=== PATIENT | male | born 1950 | race Caucasian/White ===

== ENCOUNTER 2020-08-20 07:20 | Outpatient (REF) | payer MEDICARE, SELFPAY ==
[2020-08-20 07:57] LABS: Hematocrit 38.2 % (42-52); Hemoglobin 12.4 g/dl (14.0-18.0); Mean Corpuscular HGB Conc 32.5 g/dl (31.0-36.0); Mean Corpuscular Hemoglobin 30.8 pg (27.0-33.0); Mean Corpuscular Volume 94.8 fL (80-98); Mean Platelet Volume 10.2 fL (9.4-12.4); Platelet Count 304 X10*3/uL (160-400); Red Blood Count 4.03 X10*6/uL (4.60-5.80); Red Cell Distribution Width 11.9 % (11.0-16.0); White Blood Count 8.6 X10*3/uL (4.8-10.8)
[2020-08-20 08:23] LABS: Alanine Aminotransferase 21 U/L (0-40); Albumin Level 4.1 g/dL (3.5-5.0); Alkaline Phosphatase 96 U/L (39-117); Anion Gap 13 (12-20); Aspartate Amino Transferase 25 U/L (5-37); Bilirubin Total 1.1 mg/dL (0.0-1.0); Blood Urea Nitrogen 37 mg/dL (9-16); Calcium 9.1 mg/dL (8.4-10.2); Carbon Dioxide 23 mmol/L (22-29); Chloride 108 mmol/L (96-108); Estimated Glomerular Filt Rate 33; Glucose Fasting 155 mg/dL (60-99); Potassium 5.6 mmol/L (3.3-5.1); Sodium 138 mmol/L (135-145); Total Protein 8.1 g/dL (6.5-8.0)
[2020-08-20 10:18] LABS: Creatinine Urine 107.99 mg/dL; Protein/Creatinine Ratio, Ur 0.66 (<0.2); Total Protein Urine Random 71 mg/dL (<12)
[2020-08-22 16:32] LABS: Calcium (PTHI) 9.4 mg/dL (8.6-10.3); PTHI 139 pg/mL (14-64)
== END 2020-08-20 07:21 | disposition home or self-care (01) ==
LOC: HO.LAB 07:20
PROVIDERS: PCP Internal Medicine; Visit Provider Internal Medicine Hypertension Specialist
DX: E11.22 Type 2 diabetes mellitus with diabetic chronic kidney disease (principal); N18.4 Chronic kidney disease, stage 4 (severe)
CPT/HCPCS: 36415; 80053; 83970; 84156; 85027

== ENCOUNTER 2020-09-06 07:35 | Outpatient (REF) | payer MEDICARE, SELFPAY | END 2020-09-06 07:36 | disposition home or self-care (01) | LOC: HO.HOSX 07:35 | PROVIDERS: Visit Provider Orthopaedic Surgery | DX: Z13.89 Encounter for screening for other disorder (principal) ==

== ENCOUNTER 2021-01-05 16:12 | Outpatient (REF) | payer MEDICARE, SELFPAY ==
--- NOTE | ~2021-01-05 | US_ITS ---
EXAMINATION: US RETROPERITONEAL LIMITED (RENAL ONLY) CLINICAL INFORMATION: Chronic kidney disease, stage 4. COMPARISON: CT abdomen and pelvis 04/06/2018. Renal ultrasound 04/11/2017. X-ray abdomen KUB 02/15/2011. Ultrasound abdomen 01/15/2011. TECHNIQUE: Real-time imaging of the kidneys. FINDINGS: There is a horseshoe kidney. RIGHT : 12.3 x 5.7 x 5.2 cm (SAG x AP x TRV). The kidney is normal in size, contour, and echogenicity. Renal cortical thickness is normal. There are 2 cysts in the lower pole measuring 3.1 x 2 x 3.1 cm and 1.8 x 1.5 x 1.4 cm. No renal calculi or hydronephrosis. LEFT : 12.4 x 5.9 x 5.0 cm (SAG x AP x TRV). The kidney is normal in size, contour, and echogenicity. Renal cortical thickness is normal. There are 4 cysts. The largest measures 4.4 x 4.1 x 4.3 cm in the upper pole. There are 2 cysts in the midpole measuring 2.7 x 2.2 x 2.6 cm and 2.2 x 2.1 x 1.9 cm. There is a 2.6 x 2.5 x 3 cm cyst in the lower pole. No renal calculi or hydronephrosis. US/US renal BI IMPRESSION: Horseshoe kidney. Multiple bilateral renal cysts, left greater than right. All cysts represent simple cysts. These do not appear appreciably changed from previous exam.
== END 2021-01-05 16:13 | disposition home or self-care (01) ==
LOC: HO.US 16:12
PROVIDERS: Visit Provider Internal Medicine Hypertension Specialist
DX: N18.4 Chronic kidney disease, stage 4 (severe) (principal)
CPT/HCPCS: 76775

== ENCOUNTER 2021-02-04 08:23 | Outpatient (REF) | payer MEDICARE, SELFPAY ==
[2021-02-04 09:49] LABS: Alanine Aminotransferase 20 U/L (0-40); Albumin Level 4.1 g/dL (3.5-5.0); Alkaline Phosphatase 85 U/L (39-117); Anion Gap 13 (12-20); Aspartate Amino Transferase 30 U/L (5-37); Bilirubin Total 1.3 mg/dL (0.0-1.0); Blood Urea Nitrogen 34 mg/dL (9-16); Calcium 9.3 mg/dL (8.4-10.2); Carbon Dioxide 23 mmol/L (22-29); Chloride 108 mmol/L (96-108); Estimated Glomerular Filt Rate 33; Glucose Random 132 mg/dL (60-115); Potassium 5.1 mmol/L (3.3-5.1); Sodium 139 mmol/L (135-145)
[2021-02-11 08:31] LABS: Calcium (PTHI) 9.1 mg/dL (8.6-10.3); PTHI 103 pg/mL (14-64)
== END 2021-02-04 08:24 | disposition home or self-care (01) ==
LOC: HO.LAB 08:23
PROVIDERS: Urology; PCP Internal Medicine; Visit Provider Internal Medicine Hypertension Specialist
DX: Z12.5 Encounter for screening for malignant neoplasm of prostate (principal); I12.9 Hypertensive chronic kidney disease with stage 1 through stage 4 chronic kidney disease, or unspecified chronic kidney disease; N18.9 Chronic kidney disease, unspecified; N40.1 Benign prostatic hyperplasia with lower urinary tract symptoms
CPT/HCPCS: 36415; 80053; 83970; 84153

== ENCOUNTER 2021-04-28 08:05 | Outpatient (REF) | payer MEDICARE, SELFPAY ==
--- NOTE | ~2021-04-28 | XR_ITS ---
EXAMINATION: XR SHOULDER, LEFT XR KNEE, BILATERAL CLINICAL INFORMATION: Left shoulder pain. Bilateral knee pain, osteoarthritis. COMPARISON: Left knee 06/28/2018 TECHNIQUE: 3 views of the left shoulder. 4 views of each knee. FINDINGS: Left Shoulder: Degenerative spurring along the greater tuberosity. Mild acromioclavicular osteoarthritis. Normal alignment with no fracture. Right Knee: Medial compartment narrowing with prominent marginal osteophytes. Marginal osteophytes in the lateral compartment. There is severe osteoarthritis of the patellofemoral compartment with superolateral ossification which may represent a bipartite patella. There is faint chondrocalcinosis. Small joint effusion. No acute osseous abnormality. Left Knee: Moderate-severe patellofemoral and medial compartment osteoarthritis. Mild lateral compartment osteoarthritis. Faint chondrocalcinosis. No significant joint effusion. No fracture. Diffuse vascular calcifications. XR/XR shoulder LT min 2V IMPRESSION: Left Shoulder: Mild osteoarthritis. No fracture. Right Knee: Severe patellofemoral compartment and [id number] medial/lateral compartment osteoarthritis with a joint effusion. No acute abnormality. Left Knee: Moderate severe patellofemoral and medial compartment osteoarthritis. No fracture.
--- NOTE | ~2021-04-28 | XR_ITS ---
EXAMINATION: XR SHOULDER, LEFT XR KNEE, BILATERAL CLINICAL INFORMATION: Left shoulder pain. Bilateral knee pain, osteoarthritis. COMPARISON: Left knee 06/28/2018 TECHNIQUE: 3 views of the left shoulder. 4 views of each knee. FINDINGS: Left Shoulder: Degenerative spurring along the greater tuberosity. Mild acromioclavicular osteoarthritis. Normal alignment with no fracture. Right Knee: Medial compartment narrowing with prominent marginal osteophytes. Marginal osteophytes in the lateral compartment. There is severe osteoarthritis of the patellofemoral compartment with superolateral ossification which may represent a bipartite patella. There is faint chondrocalcinosis. Small joint effusion. No acute osseous abnormality. Left Knee: Moderate-severe patellofemoral and medial compartment osteoarthritis. Mild lateral compartment osteoarthritis. Faint chondrocalcinosis. No significant joint effusion. No fracture. Diffuse vascular calcifications. XR/XR knee LT 4V IMPRESSION: Left Shoulder: Mild osteoarthritis. No fracture. Right Knee: Severe patellofemoral compartment and [id number] medial/lateral compartment osteoarthritis with a joint effusion. No acute abnormality. Left Knee: Moderate severe patellofemoral and medial compartment osteoarthritis. No fracture.
--- NOTE | ~2021-04-28 | XR_ITS ---
EXAMINATION: XR SHOULDER, LEFT XR KNEE, BILATERAL CLINICAL INFORMATION: Left shoulder pain. Bilateral knee pain, osteoarthritis. COMPARISON: Left knee 06/28/2018 TECHNIQUE: 3 views of the left shoulder. 4 views of each knee. FINDINGS: Left Shoulder: Degenerative spurring along the greater tuberosity. Mild acromioclavicular osteoarthritis. Normal alignment with no fracture. Right Knee: Medial compartment narrowing with prominent marginal osteophytes. Marginal osteophytes in the lateral compartment. There is severe osteoarthritis of the patellofemoral compartment with superolateral ossification which may represent a bipartite patella. There is faint chondrocalcinosis. Small joint effusion. No acute osseous abnormality. Left Knee: Moderate-severe patellofemoral and medial compartment osteoarthritis. Mild lateral compartment osteoarthritis. Faint chondrocalcinosis. No significant joint effusion. No fracture. Diffuse vascular calcifications. XR/XR knee RT 4V IMPRESSION: Left Shoulder: Mild osteoarthritis. No fracture. Right Knee: Severe patellofemoral compartment and [id number] medial/lateral compartment osteoarthritis with a joint effusion. No acute abnormality. Left Knee: Moderate severe patellofemoral and medial compartment osteoarthritis. No fracture.
[2021-04-28 08:21] LABS: MANUAL DIFF FLAG NO
[2021-04-28 08:39] LABS: Basophils Absolute Auto 0.1 X10*3/uL (0.0-0.2); Basophils Percent Auto 0.6 % (0-2); Eosinophils Absolute Auto 0.2 X10*3/uL (0.0-0.4); Eosinophils Percent Auto 2.8 % (0-4); Hematocrit 37.1 % (42.0-52.0); Imm Gran Abs Auto 0.04 X10*3/uL (0.00-0.03); Imm Gran Pct Auto 0.5 % (0.0-0.4); Lymphocytes Absolute Auto 2.7 X10*3/uL (1.2-4.9); Lymphocytes Percent Auto 32.7 % (20-40); Mean Corpuscular HGB Conc 32.3 g/dl (31.0-36.0); Mean Corpuscular Hemoglobin 30.5 pg (27.0-33.0); Mean Corpuscular Volume 94.4 fL (80.0-98.0); Mean Platelet Volume 10.3 fL (9.4-12.4); Monocytes Absolute Auto 0.6 X10*3/uL (0.1-1.2); Monocytes Percent Auto 6.9 % (2-11); Neutrophils Absolute Auto 4.7 x10*3/uL (2.0-8.3); Neutrophils Percent Auto 56.5 % (45-73); Platelet Count 322 X10*3/uL (160-400); Red Blood Count 3.93 X10*6/uL (4.60-5.80); Red Cell Distribution Width 11.9 % (11.0-16.0); White Blood Count 8.3 X10*3/uL (4.8-10.8)
[2021-04-28 08:49] LABS: Estimated Average Glucose 166 mg/dL; Hemoglobin A1c % 7.4 %
[2021-04-28 09:02] LABS: Alanine Aminotransferase 28 U/L (0-40); Alkaline Phosphatase 105 U/L (39-117); Anion Gap 13 (12-20); Aspartate Amino Transferase 27 U/L (5-37); Bilirubin Direct 0.3 mg/dL (0.0-0.5); Bilirubin Total 0.6 mg/dL (0.0-1.0); Blood Urea Nitrogen 32 mg/dL (9-16); Calcium 9.7 mg/dL (8.4-10.2); Carbon Dioxide 22 mmol/L (22-29); Chloride 110 mmol/L (96-108); Cholesterol 155 mg/dL; Estimated Glomerular Filt Rate 34; Glucose Random 168 mg/dL (60-115); HDL Cholesterol 31 mg/dL; LDL Cholesterol Calculated 80 mg/dl; Potassium 5.1 mmol/L (3.3-5.1); Sodium 140 mmol/L (135-145); Total Protein 8.1 g/dL (6.5-8.0); Triglycerides 224 mg/dL
[2021-04-28 09:24] LABS: TSH reflex Free T4 1.51 uIU/mL (0.32-4.0)
== END 2021-04-28 08:06 | disposition home or self-care (01) ==
LOC: HO.XRAY 08:05
PROVIDERS: PCP Internal Medicine; Visit Provider Internal Medicine
DX: Z00.00 Encounter for general adult medical examination without abnormal findings (principal); M25.512 Pain in left shoulder; M17.0 Bilateral primary osteoarthritis of knee
CPT/HCPCS: 36415; 73030; 73564; 80048; 80061; 80076; 82306; 83036; 84443; 85025

== ENCOUNTER 2021-05-01 08:25 | Outpatient (REF) | payer MEDICARE, SELFPAY | END 2021-05-01 08:26 | disposition home or self-care (01) | LOC: HO.HOSX 08:25 | PROVIDERS: Visit Provider Orthopaedic Surgery | DX: Z13.89 Encounter for screening for other disorder (principal) ==

== ENCOUNTER 2021-05-13 08:04 | Outpatient (REF) | payer MEDICARE, SELFPAY ==
[2021-05-13 09:09] LABS: Hemoglobin 11.7 g/dl (14.0-18.0); Mean Corpuscular HGB Conc 32.5 g/dl (31.0-36.0); Mean Corpuscular Hemoglobin 30.8 pg (27.0-33.0); Mean Corpuscular Volume 94.7 fL (80.0-98.0); Mean Platelet Volume 10.4 fL (9.4-12.4); Platelet Count 300 X10*3/uL (160-400); White Blood Count 8.8 X10*3/uL (4.8-10.8)
[2021-05-13 09:36] LABS: Alanine Aminotransferase 21 U/L (0-40); Alkaline Phosphatase 93 U/L (39-117); Anion Gap 13 (12-20); Aspartate Amino Transferase 23 U/L (5-37); Bilirubin Total 0.6 mg/dL (0.0-1.0); Blood Urea Nitrogen 42 mg/dL (9-16); Calcium 9.6 mg/dL (8.4-10.2); Carbon Dioxide 23 mmol/L (22-29); Chloride 111 mmol/L (96-108); Estimated Glomerular Filt Rate 29; Glucose Random 158 mg/dL (60-115); Potassium 5.3 mmol/L (3.3-5.1); Sodium 142 mmol/L (135-145); Total Protein 7.9 g/dL (6.5-8.0)
[2021-05-13 09:39] LABS: Creatinine Urine 120.92 mg/dL; Protein/Creatinine Ratio, Ur 0.36 (<0.2); Total Protein Urine Random 44 mg/dL (<12)
[2021-05-15 16:26] LABS: Calcium (PTHI) 9.4 mg/dL (8.6-10.3); PTHI 77 pg/mL (14-64)
== END 2021-05-13 08:05 | disposition home or self-care (01) ==
LOC: HO.LAB 08:04
PROVIDERS: PCP Internal Medicine; Visit Provider Internal Medicine Hypertension Specialist
DX: N18.4 Chronic kidney disease, stage 4 (severe) (principal); E11.22 Type 2 diabetes mellitus with diabetic chronic kidney disease
CPT/HCPCS: 36415; 80053; 83970; 84156; 85027

== ENCOUNTER 2022-05-17 12:14 | Outpatient (REF) | payer MEDICARE, SELFPAY | END 2022-05-17 12:15 | disposition home or self-care (01) | LOC: HO.HOSX 12:14 | PROVIDERS: Visit Provider Physician Assistant | DX: Z13.89 Encounter for screening for other disorder (principal) ==

== ENCOUNTER 2022-12-15 10:02 | Emergency (ER) | payer OTHER, SELFPAY ==
--- NOTE | ~2022-12-15 | XR_ITS ---
EXAMINATION: XR KNEE, RIGHT CLINICAL INFORMATION: Pain and effusion COMPARISON: 04/28/2021 TECHNIQUE: Four views of the right knee. FINDINGS: Moderate size knee joint effusion seen. Extensive tricompartmental degenerative changes are again noted more so in the medial compartment and patellofemoral compartment where there is more significant joint space loss and osteophyte formation. Mild chondrocalcinosis. No acute fracture or dislocation. Vascular calcification seen posteriorly. XR/XR knee RT 4V IMPRESSION: Extensive tricompartmental degenerative changes similar to the prior study. Moderate size knee joint effusion. No acute fracture or dislocation.
[2022-12-15 10:10] VITALS: BP 135/92; BP 148/76; PULSE 72; PULSE 75; RESP 18; TEMP 37.4; O2SAT 97; O2SAT 98; BMI 28.5
[2022-12-15 10:14] VITALS: PULSE 75
--- NOTE | 2022-12-15 10:23 | ED.GENADULT ---
HPI - General Adult General Chief complaint: Extremity Injury, Lower Stated complaint: RLE PAIN/SWELLING,NO KNOWN INJURY PER EMS Time Seen by Provider: 12/15/22 10:08 Source: patient, RN notes reviewed and old records reviewed Mode of arrival: EMS History of Present Illness HPI narrative: 72 year old male patient with history of HTN, diabetes, BPH, GERD, and gout presents to the ED c/o atraumatic right knee pain and swelling for 3 days. States pain is constant, worse w/ ambulating and radiates to his foot. Admits pain feels similar to prior gout attacks in the past however worse. denies numbness/tingling to the extremity, recent illnesses, fevers, chills, chest pain, abdominal pain, nausea, vomiting. Onset (ago): day(s) Related Data Previous Rx's Medication Instructions Recorded naproxen 500 mg tablet 500 mg PO BID PRN pain 10 days #20 12/15/22 tabs prednisone 20 mg tablet 40 mg PO DAILY 5 days #10 tabs 12/15/22 Allergies Allergy/AdvReac Type Severity Reaction Status Date / Time No Known Allergies Allergy Verified 12/15/22 10:14 Review of Systems Review of Systems: Constitutional:, No Fever, No Chills, No Fatigue, No Malaise Eyes: No Eye Pain, No Swelling, No Redness, No Vision Changes Cardiovascular: No Chest Pain, No SOB, No Edema, No Palpitations Respiratory: No Cough, No Sputum, No Dyspnea Gastrointestinal: No Nausea, No Vomiting, No Diarrhea, No Abdominal pain Musculoskeletal: + Right knee pain, No Myalgias, +right knee swelling Skin: No Skin Lesions, No rash Neuro: No Weakness, No Numbness, No Paresthesias Yes all other systems are reviewed and are negative Constitutional: Constitutional: Reports as per [facility] Past Medical History Attestation statement: The following information was validated with the patient. Source: old records reviewed Medical History Benign prostatic hyperplasia with lower urinary tract symptoms GERD (gastroesophageal reflux disease) Social History Social History Alcohol intake: never Smoked in Last 30 Days: No Use of substances other than those prescribed or required for medical reasons: No Advance Directives: No Advance Directives Information Provided: Yes Physical Exam ED Vital Signs: Vital Signs - 24 hr 12/15/22 10:10 12/15/22 10:14 12/15/22 13:48 Temperature 99.3 F 98.9 F Pulse Rate 75 75 75 Respiratory Rate 18 16 Blood Pressure 148/76 H 135/73 Pulse Oximetry 98 99 Oxygen Delivery Method Room Air Room Air BMI result Body Mass Index 28.5 Const General: cooperative, healthy appearing, no acute distress, alert and awake Orientation/consciousness: patient oriented x3 Limitations: no limitations HENMT Head: Yes normal to inspection and Yes atraumatic Ears: hearing grossly normal bilaterally General nose exam: Normal external nose present Face and sinus: Yes normal facial exam Eyes General: appearance normal, both eyes and all related structures EOM: EOMs intact bilaterally Neck Neck: Yes normal visual inspection and Yes no meningeal signs Resp Effort & Inspection: normal respiratory effort and no respiratory distress Auscultation: clear to auscultation bilaterally Cardio Rate: regular rate Heart sounds: S1 normal heart sound present and S2 normal heart sound present Peripheral pulses: Peripheral pulses 2+ throughout GI Inspection: Yes normal to inspection Palpation (GI): Soft to palpation and nontender Skin Rashes: no rashes Wounds: no wounds Neuro General: patient oriented x3, tone normal, moves all extremities and no meningeal signs Extrem Other: Right knee w/effusion > suprapatellar without overlying erythema, no warmth, rash or ecchymosis. Limited flexion secondary to pain. + diffusely tender to palpation. Neurovascularly intact distally. No pitting edema to lower extremity Ambulating with antalgic gait Right lower extremity: knee Details: tenderness and crepitus Location: at the patella; ROM limited Course Course Course Narrative: -1215--patient tolerated joint aspiration without complications. Edwin wrap applied for comfort. -1434--knee aspirin with intracellular and extracellular calcium pyrophosphate crystals > results discussed with patient, will treat with prednisone and NSAIDs with close PCP follow-up Results discussed with patient including worrisome signs and symptoms and strict return precautions, and when to return to the emergency department. They verbalized understanding and feel safe for discharge at this time. Medications Administered Discontinued Medications Generic Name Dose Route Start Last Admin Trade Name Freq PRN Reason Stop Dose Admin Ketorolac Tromethamine 30 mg 12/15/22 14:35 12/15/22 14:57 Ketorolac Tromethamine 30 Mg/Ml Vial IM 12/15/22 14:36 30 mg ONCE ONE Administration Lidocaine HCl 5 ml 12/15/22 11:07 12/15/22 12:21 Lidocaine Hcl 1 % Mpf 5 Ml Vial INFILTRATI 12/15/22 11:08 5 ml ONCE ONE Administration Prednisone 40 mg 12/15/22 14:35 12/15/22 14:57 Prednisone 20 Mg Tablet PO 12/15/22 14:36 40 mg ONCE ONE Administration Procedures Joint Aspiration/Injection Joint Asp./Inject. 1: Side of body: right Joint Aspirated: knee Skin Prep: sterile prep and drape Local Anesthetic: lidocaine 1% Amount of anesthesia used (mL): 4 Needle Size Used: 18G Fluid Obtained: bloody Total fluid obtained (mL): 49 Patient Tolerated Procedure: well and no complications Complications: none Medical Decision Making Medical Decision Making MDM Narrative: 72 year old male patient with history of HTN, diabetes, BPH, GERD, and gout presents to the ED c/o atraumatic right knee pain and swelling for 3 days. On exam vital signs stable, patient nontoxic appearing, some mild discomfort of the right knee at rest. Right knee with noted effusion, diffuse tenderness with limited ROM secondary to pain/swelling. No overlying erythema/warmth. Suspicion for reactive arthritis vs gout vs ?fracture. Lower suspicion for osteomyelitis, tendon rupture,patellofemoral syndrome, or septic joint/arthritis. No evidence of cellulitis. Lower suspicion for Osteosarcoma, DVT, or compartment syndrome. Plan: RT knee XR ordered. Patient agreeable to joint aspiration, fluid analysis Please refer to course for remaining clinical decision making, interpretation of labs/imaging results, and discussions with consultants and/or family members. Differential Diagnosis Differential Diagnoses: The differential diagnosis associated with the presentation includes As above Admission/Observation Consideration of admission/observation: Escalation of care including admission/observation considered Lab Data MDM Lab Attestation statement: I reviewed the patient's lab results. Independent Interpretation I performed an independent interpretation of an: Plain X-Ray (Appreciable joint effusion) Radiology Impression Discussion of test interpretation with radiology: I have reviewed the radiologist's reading. Radiologist Impression: Impression: Extensive tricompartmental degenerative changes similar to the prior study. Moderate size knee joint effusion. No acute fracture or dislocation. Independent Historian Clinical information obtained from an independent historian. History obtained from or confirmed by: Other (son) External Record Review External record reviewed: Inpatient record, Office record, Outpatient record, Prior outpatient labs, Prior outpatient radiology, Primary care record and Outside ED record Tests considered The following testing was considered but not selected: As above Prescription Management I considered prescription management with: Pain Medication Discharge Plan Discharge Clinical Impression: Pseudogout of knee Patient Disposition: Home, Self-Care Instructions: Pseudogout (ED) Additional Instructions: Your knee showed evidence of pseudogout. As well as arthritic changes Naproxen as an anti-inflammatory/pain medication, take with food Prednisone as a steroid which will help with inflammation/pain Continue to wear Edwin wrap for comfort/stability and compression Ice and elevate If symptoms persist or worsen or area begins look infected return to the Emergency did Prescriptions: New prednisone 20 mg tablet 40 mg PO DAILY 5 Days Qty: 10 0RF naproxen 500 mg tablet 500 mg PO BID PRN (Reason: pain) 10 Days Qty: 20 0RF Referrals: [facility] [place] [facility] [Provider Group] (as needed) [facility] [Primary Care Provider] - Interventions: ED Discharge Assessment Last Done: 12/15/22 15:50 Discharge Date/Time: 12/15/22 15:51
--- NOTE | 2022-12-15 10:32 | PC.NURSE ---
pt a&ox3, respirations even and unlabored.skin appropriate for ethnicity. pt reports 10/10 right knee pain for the last 3 days. right knee is swollen and tender to touch. pt reports no falls or recent illness.
[2022-12-15] MEDS: Lidocaine HCl 1 % MPF 5 ML VIAL INFILTRATI (12:21)
[2022-12-15 13:48] VITALS: BP 135/73; PULSE 75; RESP 16; TEMP 37.2; O2SAT 99
[2022-12-15] MEDS: Ketorolac Tromethamine 30 MG/ML VIAL IM (14:57)
[2022-12-15] MEDS: predniSONE 20 MG TABLET 40 MG PO (14:57)
== END 2022-12-15 15:51 | disposition home or self-care (01) ==
PROVIDERS: Emergency Provider Student in an Organized Health Care Education/Training Program
DX: M11.261 Other chondrocalcinosis, right knee (principal); M25.461 Effusion, right knee; M17.11 Unilateral primary osteoarthritis, right knee; M10.9 Gout, unspecified; E11.9 Type 2 diabetes mellitus without complications; I10 Essential (primary) hypertension
CPT/HCPCS: 20610; 73564; 87070; 87073; 87205; 89060; 96372; 99284; 99285; J1885

== ENCOUNTER 2022-12-24 08:56 | Outpatient (REF) | payer OTHER, SELFPAY ==
--- NOTE | ~2022-12-24 | XR_ITS ---
EXAMINATION: XR KNEE AP STANDING, BILATERAL CLINICAL INFORMATION: Bilateral knee pain. COMPARISON: 04/28/2021 TECHNIQUE: AP bilateral standing view of the knees was obtained. FINDINGS: LEFT KNEE: Progression of marked degenerative changes medial compartment with joint space narrowing and medial marginal osteophytes. Extensive vascular calcifications. Small lateral marginal osteophytes. Possible faint chondrocalcinosis in the lateral compartment. RIGHT KNEE: Progression of moderate degenerative changes medial compartment with joint space narrowing and medial marginal osteophytes. Extensive vascular calcifications. Small lateral marginal osteophytes. Possible faint chondrocalcinosis in the lateral compartment. XR/XR knee standing BI IMPRESSION: Progression of degenerative changes in bilateral knees, left greater than right.
== END 2022-12-24 08:57 | disposition home or self-care (01) ==
LOC: HO.HOSX 08:56
PROVIDERS: Visit Provider Orthopaedic Surgery
DX: M17.0 Bilateral primary osteoarthritis of knee (principal); E11.9 Type 2 diabetes mellitus without complications
CPT/HCPCS: 73565

== ENCOUNTER 2022-12-24 10:55 | Outpatient (AMB) | payer MEDICARE, SELFPAY ==
[2022-12-24 11:01] VITALS: BMI 28.5
--- NOTE | 2022-12-24 11:01 | A.OFFVIS_ITS ---
Intake Vital Signs 12/24/22 11:01 Height 6 ft Weight 210 lb BMI 28.5 Intake Visit Reasons: NPatient - B/L knee pain Intake Note: Phil is a 72 year old male who presents today as a ne patient with complaints of bilateral knee pain. Patient rpeorts that he has had ongoing pain in both of the knees. His right knee is worse than the left. He reports that he was recently seen with the ED where they aspirated the knee. He has a history of injections with Dr. Franco with only mild relief. Allergies No Known Allergies Allergy (Verified 12/15/22 10:14) HPI NPatient - B/L knee pain HPI Details Phil is a 72 year old Diabetic man who presents with complaints of bilateral knee pain, R>L. He was recently seen in the ED on 12/15/22 with complaints of worsening right knee pain. His knee was aspirated and he says this improved his pain somewhat. He used to follow with Dr. Franco and receive bilateral knee injections, with mild relief. He complains of pain with daily activity, worse with walking or using stairs. He says he has had pain for several years in his knees, but it worsened in the last week. He has bilateral knee OA and a hx of pseudo-Gout & Diabetes. He says he has been hospitalized recently due to issues with his circulation. [facility], [facility] Medical History Benign prostatic hyperplasia with lower urinary tract symptoms GERD (gastroesophageal reflux disease) Social History Alcohol intake: never Review of Systems Const All systems reviewed & are unremarkable except as noted in HPI and below Physical Exam Vital Signs: BMI result Body Mass Index 28.5 Const General: no acute distress, alert and awake Orientation/consciousness: patient oriented x3 HEENT Head: Yes normocephalic and Yes atraumatic Eyes EOM: EOMs intact bilaterally Resp Effort & Inspection: normal respiratory effort and able to speak in complete sentences Cardio Jugular venous distension: no JVD Skin General skin exam: turgor normal Rashes: no rashes Neuro General: patient oriented x3 Extrem Other: Bilateral Knees: Significant antalgic gait TTP medial compartment R>L Psych Appearance: grossly normal Affect: normal affect Attitude: cooperative Results Reviewed Results Reviewed: I personally reviewed relevant radiographs. Severe bilateral knee OA affecting anterior compartment most severely Assessment & Plan Assessment & Plan (1) Bilateral primary osteoarthritis of knee: Code(s): M17.0 - Bilateral primary osteoarthritis of knee Plan: This is a 72 year old man with bilateral knee OA, R>L, and a recent episode of Pseudo-gout. He has pain with daily activity, worse with ambulation or using stairs. He is limited in his ambulation by his knee pain & Gout. His right knee was aspirated in the ED on 12/15/22, with some relief. He has a hx of steroid injections performed by Dr. Franco, with some relief. He limps and has constant pain. He does not have recent labwork but labs from 2020 show Hgb A1C of 7.4 and elevated renal function tests. I discussed his diagnosis and treatment options. He would benefit from a TKA, but he would like to take time and discuss surgery with his family. I explained this surgery to Phil including the risks, benefits, and recovery timeline. He will come back with his family to discuss in detail, I recommend he remain active and use his assistive cane (2) Diabetes mellitus: Code(s): E11.9 - Type 2 diabetes mellitus without complications Plan Scribed for Khadar Almeida MD by Mark Cabrera, medical sonographer, on 12/24/22 at 11:33 AM, EST. Orders: Orders XR knee standing BI Today M25.569 - Pain in unspecified knee Coding Level of Care Code New Pt Level 4 (42109) Diagnoses Bilateral primary osteoarthritis of knee M17.0 Diabetes mellitus E11.9
== END 2022-12-24 11:35 | disposition home or self-care (01) ==
PROVIDERS: Visit Provider Orthopaedic Surgery
DX: M17.0 Bilateral primary osteoarthritis of knee (principal)
CPT/HCPCS: 99214

== ENCOUNTER 2023-04-04 06:40 | Emergency (ER) | payer OTHER, SELFPAY ==
--- NOTE | ~2023-04-04 | XR_ITS ---
EXAMINATION: XR knee RT 4V, XR knee LT 4V CLINICAL INFORMATION: Tenderness to palpation. Question effusion versus gout. Patient states hard to walk. COMPARISON: Bilateral knee radiographs 12/24/2022, right knee radiograph 12/15/2022, right knee radiograph 04/28/2021., Left knee radiograph 04/28/2021. TECHNIQUE: Bilateral lateral, AP, left oblique, right oblique radiographs of the left and right knees. FINDINGS: Right knee: A prominent suprapatellar bursal effusion is noted. Again noted are findings suggestive of a bipartite patella similar to findings present 03/28/2021. The patellofemoral compartment demonstrates marked joint space narrowing and osteophytosis. Medial compartment demonstrates mild joint space narrowing, subchondral sclerosis and osteophytosis. Normal joint spacing of the lateral compartment is visualized. Vague dystrophic calcification is noted in the suprapatellar bursal region similar to findings present 12/15/2022. No erosive osseous lesions identified. Diffuse Monckeberg type vascular calcifications are noted. Left knee: No gross left joint effusion noted. Vague dystrophic calcifications are noted in the suprapatellar region similar findings present 04/28/2021. Diffuse Monckeberg type vascular calcifications identified. Marked joint space narrowing, subchondral sclerosis and osteophytosis of the patellofemoral compartment. Mild lateral compartment joint space narrowing. Marked medial compartment joint space narrowing with subchondral sclerosis and mild osteophytosis. Mild meniscal calcifications identified. XR/XR knee RT 4V IMPRESSION: Left and right knees: *Advanced bilateral tricompartmental osteoarthritis. *Prominent right knee joint effusion. Vague dystrophic calcifications are noted within the effusion. These calcifications were present on the comparison radiograph of 04/28/2021. The effusion may be secondary to osteoarthritis. The differential diagnosis includes an effusion related to gout superimposed on chronic osteoarthritis. No erosive osseous lesions are identified to specifically suggest gout. The presence of dystrophic soft tissue calcifications may be a feature of gout in the setting of chronic renal disease. *Diffuse Monckeberg vascular calcifications which may represent the sequela of chronic renal disease and/or diabetes mellitus.
[2023-04-04 06:45] VITALS: BP 116/61; BP 128/66; PULSE 82; PULSE 86; RESP 18; TEMP 37.3; O2SAT 100; O2SAT 98; BMI 27.1
--- NOTE | 2023-04-04 06:48 | MHC.EDTECH ---
Patient came in by EMS,changed into hospital attire and vitals completed. Call montejo within reach
--- NOTE | 2023-04-04 07:05 | ED.GENADULT ---
HPI - General Adult General Chief complaint: General Medical Stated complaint: gout pain Time Seen by Provider: 04/04/23 06:45 Source: patient, EMS and RN notes reviewed Mode of arrival: EMS Limitations: no limitations History of Present Illness HPI narrative: 72-year-old male with pmhx significant for pseuogout, osteoarthritis, DM, BPH, and GERD presents to the ED today with complaint of atraumatic bilateral knee pain and swelling (R>L), worsening over the last 2 days. Pain is localized to knees and worse with movement and ambulating. Does not radiate. Denies injruy, trauma, or fall. Reports similar occurrence 2-3 months ago and was told he was having a pseudogout flare. Not currently being treated. States he has been ambulating without difficulty up until 2 days ago, now ambulating with limp d/t pain/discomfort. Not on AC. Denies HUNG, fever, chills, neck pain, CP, SOB, pelvic or ankle pain, lower extremity tingling/weakness/numbness. Related Data Home Medications Medication Instructions Recorded Confirmed amitriptyline 25 mg tablet 25 mg PO BEDTIME 12/24/22 amlodipine 10 mg tablet 10 mg PO DAILY 12/24/22 esomeprazole magnesium 40 mg 40 mg PO DAILY 12/24/22 capsule,delayed release glipizide 10 mg tablet 10 mg PO BID 12/24/22 melatonin 10 mg capsule 10 mg PO BEDTIME 12/24/22 metoprolol succinate 100 mg 100 mg PO DAILY 12/24/22 tablet,extended release 24 hr multivitamin with folic acid 400 1 tab PO ONCE 12/24/22 mcg tablet (Daily-Maria Elena (with folic acid)) Previous Rx's Medication Instructions Recorded naproxen 500 mg tablet 500 mg PO BID PRN pain 10 days #20 12/15/22 tabs prednisone 20 mg tablet 40 mg (2 x 20 mg) PO DAILY 5 days 12/15/22 #10 tabs naproxen 500 mg tablet 500 mg PO BID #20 tabs 04/04/23 prednisone 20 mg tablet 40 mg (2 x 20 mg) PO DAILY 5 days 04/04/23 #10 tabs Allergies Allergy/AdvReac Type Severity Reaction Status Date / Time No Known Allergies Allergy Verified 12/15/22 10:14 Review of Systems Review of Systems: Constitutional: No fever, chills, fatigue, night sweats, weight changes ENT/Mouth: No ear pain, hearing loss, nasal congestion, sinus pain, rhinorrhea, sore throat Eyes: No eye pain, swelling, redness, vision changes, discharge Cardio: No chest pain, palpitations, SANDERS, orthopnea Pulm: No SOB, cough, sputum, wheezing, dyspnea, hemoptysis : No irregular bleeding, dysuria, frequency, urgency, hesitancy, hematuria, flank pain, urinary flow changes, urinary incontinence or retention MSK: No back pain, neck pain, joint pain, myalgias, +bilateral knee pain/ swelling Skin: No lesions, rashes Neuro: No weakness, numbness, paresthesias, LOC, dizziness, headache All other systems reviewed and are negative. FORMERLY [facility], [facility] Past Medical History Attestation statement: The following information was validated with the patient. Source: old records reviewed and nursing notes reviewed Medical History Benign prostatic hyperplasia with lower urinary tract symptoms GERD (gastroesophageal reflux disease) Social History Social History Unable to assess alcohol history related to: Unknown Alcohol intake: never Smoked in Last 30 Days: No Use of substances other than those prescribed or required for medical reasons: No Advance Directives: No Physical Exam ED Vital Signs: Vital Signs - 24 hr 04/04/23 06:45 04/04/23 10:33 04/04/23 11:28 Temperature 99.1 F 98.8 F Pulse Rate 82 68 68 Respiratory Rate 18 14 Blood Pressure 116/61 95/57 L 95/57 L Pulse Oximetry 98 99 99 Oxygen Delivery Method Room Air Room Air BMI result Body Mass Index 27.1 Vital signs stable Const General: cooperative, comfortable, no acute distress, alert and awake Orientation/consciousness: patient oriented x3 Limitations: no limitations HENMT Head: Yes normal to inspection Ears: hearing grossly normal bilaterally General nose exam: Normal external nose present Teeth and gingiva: poor dentition Eyes General: appearance normal, both eyes and all related structures Conjunctivae: conjunctivae normal Sclerae: sclerae normal Pupils: Equal, round and reactive pupils present Neck Neck: Yes normal visual inspection and Yes no lymphadenopathy Resp Effort & Inspection: normal respiratory effort Auscultation: clear to auscultation bilaterally Cardio Rate: regular rate Rhythm: regular rhythm Peripheral pulses: posterior tibial pulses present and dorsalis pedis present Skin General skin exam: no rashes or lesions noted Neuro General: patient oriented x3 and moves all extremities Cranial nerves: Yes CN's II-XII intact bilaterally and Yes Equal, round and reactive pupils present Gait exam (Neuro): Antalgic gait present Extrem Other: + There is diffuse non pitting edema to bilateral knees (R>L) without erythema or overlying cellulitic changes. Diffusely tender to palpation without palpable deformity, mass or fluctuance. No warmth. Limited flexion to right knee secondary to edema/ pain. Strength 5/5 to bilateral lower extremities. Sensation intact to light touch throughout. 2+ DP/PT pulses b/l. Cap refill normal. Course Course Course Narrative: 731-- upon review of patient's chart, he was here 4 months ago with similar symptoms. Joint aspiration was performed showing pseudogout. He was treated with prednisone and NSAIDs with PCP follow-up. States he has followed up with his PCP. Not currently being treated. 80-- discussed case with my attending physician Dr. Granger who after examining the patient agrees that patient has effusion > will plan for joint aspiration. > XR right knee shows prominent joint effusion with dystrophic calcifications present on previous imaging, question secondary to osteoarthritis. XR left knee showing tricompartmental osteoarthritis. 31-- Formal consent for aspiration obtained. > CBC without leukocytosis. ESR elevated to 70. CRP elevated to 16. Uric acid elevated to 8. BUN/ creatinine elevated secondary to patient's chronic kidney disease and appears to be at patient's baseline when compared to priors. No acute electrolyte abnormalities requiring intervention. 2003-- Joint aspiration of the R knee performed with Dr. Granger at bedside. Approximately 70 cc of fluid removed. Fluid yellow and turbid in coloration correlating to pseudogout. Patient tolerated procedure well. Bandage and Edwin wrap applied. 1103-- RN and tech conducted ambulation trial. Patient is ambulating with antalgic gait. As he lives home alone I do not feel comfortable discharging pt. PT/CM consult ordered. Pain is controlled. Physician observation initiated. 1136- PT/CM eval pending. Patient's son is at bedside ready to take him home. I had a discussion with the patient that PT/CM is recommended as he lives alone. Patient states that he feels as though he can walk and would like to go home. He is A&O x3 and able to make his own decisions. I discussed risks associated with leaving the ED at this time. He expresses understanding. Son tells me that he and his will be monitoring and caring for patient. I discussed strict return precautions/ signs of infection. Patient will be d/c home with rx for naproxen and prednisone for pseudogout treatment. VSS. All questions have been answered at this time. Patient is agreeable with this disposition. >>Spoke with Hina from who states that home PT will be arranged. Medications Administered Discontinued Medications Generic Name Dose Route Start Last Admin Trade Name Freq PRN Reason Stop Dose Admin Acetaminophen 975 mg 04/04/23 07:19 04/04/23 08:31 Acetaminophen 325 Mg Tablet PO 04/04/23 07:20 975 mg ONCE ONE Administration Lidocaine HCl 5 ml 04/04/23 08:19 04/04/23 08:33 Lidocaine Hcl 1 % Mpf 5 Ml Vial INFILTRATI 04/04/23 08:20 5 ml ONCE ONE Administration Procedures Joint Aspiration/Injection Joint Asp./Inject. 1: Time Out Performed: Yes Side of body: right Joint Aspirated: knee Ultrasound Guidance: No Skin Prep: sterile prep and drape Local Anesthetic: lidocaine 1% Amount of anesthesia used (mL): 5 Needle Size Used: 18G Fluid Obtained: turbid Total fluid obtained (mL): 70 Medication Injected, if any: Lidocaine Amount of medication injected (mL): 5 Patient Tolerated Procedure: well and no complications Complications: none Medical Decision Making Medical Decision Making MDM Narrative: 72-year-old male with pmhx significant for pseuogout, osteoarthritis, DM, BPH, and GERD presents to the ED today with complaint of atraumatic bilateral knee pain and swelling (R>L), worsening over the last 2 days. VSS. Afebrile. Nontoxic appearing, NAD. There is diffuse non pitting edema to bilateral knees (R>L) without erythema or overlying cellulitic changes. Diffusely tender to palpation without palpable deformity, mass or fluctuance. No warmth. Limited flexion to right knee secondary to edema/ pain. Strength 5/5 to bilateral lower extremities. Sensation intact to light touch throughout. NV intact distally. Clinical concern for arthritic flare, gout, pseudogout, joint effusion, reactive arthritis, fracture. Lower suspicion for Vasquez cyst, tendon rupture, patellofemoral syndrome, septic joint, osteomyelitis. Plan at this time is basic labs, uric acid, inflammatory markers, imaging, pain control, and re-eval. Differential Diagnosis Differential Diagnoses: The differential diagnosis associated with the presentation includes As above. Admission/Observation Not indicated. Lab Data MDM Lab Attestation statement: I reviewed the patient's lab results. As above. 04/04/23 08:28 04/04/23 08:28 Labs: Lab Results 04/04/23 Range/Units 08:28 WBC 10.8 (4.8-10.8) X10*3/uL RBC 3.72 L (4.60-5.80) X10*6/uL Hgb 11.3 L (14.0-18.0) g/dl Hct 34.1 L (42.0-52.0) % MCV 91.7 (80.0-98.0) fL MCH 30.4 (27.0-33.0) pg MCHC 33.1 (31.0-36.0) g/dl RDW 12.1 (11.0-16.0) % Plt Count 253 (160-400) X10*3/uL MPV 9.8 (9.4-12.4) fL Immature Gran % (Auto) 0.4 (0.0-0.4) % Neut % (Auto) 64.2 (45-73) % Lymph % (Auto) 20.3 (20-40) % [place] % (Auto) 14.2 H (2-11) % Eos % (Auto) 0.5 (0-4) % Baso % (Auto) 0.4 (0-2) % Lymph # (Auto) 2.2 (1.2-4.9) X10*3/uL [place] # (Auto) 1.5 H (0.1-1.2) X10*3/uL Eos # (Auto) 0.1 (0.0-0.4) X10*3/uL Baso # (Auto) 0.0 (0.0-0.2) X10*3/uL Abs Immat Gran (auto) 0.04 H (0.00-0.03) X10*3/uL Absolute Neuts (auto) 6.9 (2.0-8.3) x10*3/uL Absolute Nucleated RBC 0.000 (0.0-0.012) X10*3/uL Nucleated RBC % (auto) 0.0 (0.0-0.2) /100WBC Smear Tech's Comments VERIFIED ESR 70 H (0-15) MM/HR Sodium 137 (135-145) mmol/L Potassium 5.1 (3.3-5.1) mmol/L Chloride 106 (96-108) mmol/L Carbon Dioxide 23 (22-29) mmol/L Anion Gap 13 (12-20) BUN 30 H (9-16) mg/dL Creatinine 2.12 H (0.5-1.4) mg/dL Estim Creat Clear Calc 33.5 Estimated GFR 31 Random Glucose 190 H (60-115) mg/dL Uric Acid 8.0 H (3.4-7.0) mg/dL Calcium 9.1 (8.4-10.2) mg/dL Magnesium 1.5 L (1.6-2.6) mg/dL C-Reactive Protein 16.68 H (< or = 0.50) mg/dL Independent Interpretation I performed an independent interpretation of an: Plain X-Ray Interpretation: XR bilateral knees showing chronic degenerative changes, agree with radiologist's interpretation. Radiology Impression Discussion of test interpretation with radiology: I have reviewed the radiologist's reading. Independent Historian Clinical information obtained from an independent historian. History obtained from or confirmed by: EMS External Record Review External record reviewed: Inpatient record Prescription Management I considered prescription management with: Pain Medication and Other (Steroid) Chronic Conditions Patient?s care impacted by: Diabetes and Hypertension Critical Care Time Critical Care Time Critical Care Time: No Discharge Plan Discharge Clinical Impression: Pseudogout of right knee, Osteoarthritis of knees, bilateral Patient Disposition: Home, Self-Care Instructions: Joint Replacement Surgery (DC), Pseudogout (ED), Joint Aspiration (DC) Additional Instructions: The fluid within your new today showed evidence of pseudogout along with arthritic changes. Naproxen as an anti-inflammatory/pain medication. Take this with food and as needed for pain/discomfort. Prednisone is a steroid which will help with inflammation. Will have these medications have been sent to your pharmacy. Continue to wear your Edwin wrap for comfort, stability and compression. Ice and elevate your right knee. Please follow-up with your primary care provider as you may require a knee replacement. Additionally you have been provided with a referral to orthopedic surgeon. You may follow-up with them. Call them to make an appointment. They will not call you. If symptoms persist or worsen or if the area begins to look infected, please return to the emergency department. In the case of an emergency call 911. El l?quido dentro de maria nuevo hoy mostr? evidencia de pseudogota junto con cambios artr?ticos. Naproxeno adonis medicamento antiinflamatorio/analg?sico. T?mota con alimentos y seg?n sea necesario para el dolor o la incomodidad. La prednisona es un esteroide que ayudar? con la inflamaci?n. Estos medicamentos habr?n sido enviados a maria farmacia. Contin?e usando maria envoltura Edwin para mayor comodidad, estabilidad y compresi?n. Hielo y levante la rodilla derecha. David un seguimiento con maria proveedor de atenci?n primaria, ya que es posible que necesite un reemplazo de rodilla. Adem?s, se le hung proporcionado josefina derivaci?n a un cirujano ortop?dico. Puede hacer un seguimiento con ellos. Ll?melos para concertar josefina faith. No te llamar?n. Si los s?ntomas persisten o empeoran o si el ?buck comienza a verse infectada, regrese al departamento de emergencias. En matt de emergencia llame al 911. Prescriptions: New prednisone 20 mg tablet 40 mg PO DAILY 5 Days Qty: 10 0RF naproxen 500 mg tablet 500 mg PO BID Qty: 20 0RF No Action prednisone 20 mg tablet 40 mg PO DAILY 5 Days Qty: 10 0RF naproxen 500 mg tablet 500 mg PO BID PRN (Reason: pain) 10 Days Qty: 20 0RF amitriptyline 25 mg tablet 25 mg PO BEDTIME metoprolol succinate 100 mg tablet extended release 24 hr 100 mg PO DAILY glipizide 10 mg tablet 10 mg PO BID multivitamin with folic acid [Daily-Maria Elena (with folic acid)] 400 mcg tablet 1 tab PO ONCE esomeprazole magnesium 40 mg capsule,delayed release(DR/EC) 40 mg PO DAILY melatonin 10 mg capsule 10 mg PO BEDTIME amlodipine 10 mg tablet 10 mg PO DAILY [place] [facility] [place] [facility] [place] Group] - 5 days Interventions: ED Discharge Assessment Last Done: 04/04/23 11:51 Discharge Date/Time: 04/04/23 11:51 Print Language: Finnish
[2023-04-04] MEDS: Acetaminophen 325 MG TABLET 975 MG PO (08:31)
[2023-04-04 08:33] LABS: Basophils Percent Auto 0.4 % (0-2); Eosinophils Absolute Auto 0.1 X10*3/uL (0.0-0.4); Eosinophils Percent Auto 0.5 % (0-4); Hematocrit 34.1 % (42.0-52.0); Hemoglobin 11.3 g/dl (14.0-18.0); Imm Gran Abs Auto 0.04 X10*3/uL (0.00-0.03); Imm Gran Pct Auto 0.4 % (0.0-0.4); Lymphocytes Absolute Auto 2.2 X10*3/uL (1.2-4.9); Lymphocytes Percent Auto 20.3 % (20-40); MANUAL DIFF FLAG SCAN; Mean Corpuscular HGB Conc 33.1 g/dl (31.0-36.0); Mean Corpuscular Hemoglobin 30.4 pg (27.0-33.0); Mean Corpuscular Volume 91.7 fL (80.0-98.0); Mean Platelet Volume 9.8 fL (9.4-12.4); Monocytes Absolute Auto 1.5 X10*3/uL (0.1-1.2); Monocytes Percent Auto 14.2 % (2-11); Neutrophils Absolute Auto 6.9 x10*3/uL (2.0-8.3); Neutrophils Percent Auto 64.2 % (45-73); Platelet Count 253 X10*3/uL (160-400); Red Blood Count 3.72 X10*6/uL (4.60-5.80); Red Cell Distribution Width 12.1 % (11.0-16.0); SCAN SMEAR FLAG 1; White Blood Count 10.8 X10*3/uL (4.8-10.8)
[2023-04-04] MEDS: Lidocaine HCl 1 % MPF 5 ML VIAL INFILTRATI (08:33)
[2023-04-04 08:48] LABS: Anion Gap 13 (12-20); Blood Urea Nitrogen 30 mg/dL (9-16); C Reactive Protein 16.68 mg/dL (< or = 0.50); Calcium 9.1 mg/dL (8.4-10.2); Carbon Dioxide 23 mmol/L (22-29); Chloride 106 mmol/L (96-108); Creatinine Clr Calc Pharmacy 33.5; Estimated Glomerular Filt Rate 31; Glucose Random 190 mg/dL (60-115); Magnesium 1.5 mg/dL (1.6-2.6); Potassium 5.1 mmol/L (3.3-5.1); Sodium 137 mmol/L (135-145)
[2023-04-04 08:52] LABS: SLIDE REVIEW VERIFIED
[2023-04-04 09:09] LABS: Erythrocyte Sedimentation Rate 70 MM/HR (0-15)
[2023-04-04 10:33] VITALS: BP 95/57; PULSE 68; RESP 14; TEMP 37.1; O2SAT 99
[2023-04-04 11:28] VITALS: BP 95/57; PULSE 68; O2SAT 99
== END 2023-04-04 11:51 | disposition home or self-care (01) ==
PROVIDERS: Physician Assistant Medical; Emergency Provider Emergency Medicine
DX: M10.061 Idiopathic gout, right knee (principal); M17.0 Bilateral primary osteoarthritis of knee; M10.062 Idiopathic gout, left knee; R26.81 Unsteadiness on feet; M25.562 Pain in left knee; M25.561 Pain in right knee; Z79.899 Other long term (current) drug therapy
CPT/HCPCS: 20610; 36415; 73564; 80048; 83735; 84550; 85025; 85652; 86140; 97162; 99284

== ENCOUNTER 2023-04-10 12:49 | Emergency (ER) | payer OTHER, SELFPAY ==
--- NOTE | ~2023-04-10 | CT_ITS ---
EXAMINATION: CT ABDOMEN AND PELVIS WITHOUT CONTRAST CLINICAL INFORMATION: Abdominal pain. COMPARISON: 10/04/2017 TECHNIQUE: Multidetector volumetric imaging was performed from the superior aspect of the liver through the pubic symphysis. Sagittal and coronal reformatted images were obtained on the technologist's workstation. This CT examination was performed using dose optimization techniques as appropriate, variously including the following: *Automated exposure control *Adjustment of mA and/or kV according to patient size (this includes techniques or standardized protocols for targeted exams where dose is matched to indication/reason for exam; i.e. extremities or head) *Use of iterative reconstruction technique DLP: 661 mGy-cm FINDINGS: Motion artifact technically degrades image quality. LUNG BASES: The visualized lung bases are unremarkable. LIVER, GALLBLADDER, AND BILIARY TREE: The noncontrast liver is normal in size and contour. No biliary ductal dilatation is present. The gallbladder is surgically absent. PANCREAS: Unremarkable. SPLEEN: Chronic granulomatous disease. ADRENAL GLANDS: Unremarkable. KIDNEYS AND URETERS: Horseshoe kidney with multiple cysts. No renal calculus. No hydronephrosis. Nonspecific perinephric stranding. BLADDER: Unremarkable. GASTROINTESTINAL TRACT: Small and large bowel loops are of normal caliber. No small bowel obstruction. Diverticular disease of the colon. Appendix is within normal limits. ABDOMINAL WALL: No significant hernia is appreciated. LYMPH NODES: No bulky lymphadenopathy. VASCULAR: Normal caliber abdominal aorta. PELVIC VISCERA: Enlarged prostate gland. OSSEOUS STRUCTURES: No destructive bone lesions. CT/CT abdomen pelvis wo IV con IMPRESSION: No acute abnormality in the abdomen or pelvis.
--- NOTE | ~2023-04-10 | US_ITS ---
EXAMINATION: US VENOUS ULTRASOUND WITH DOPPLER LOWER EXTREMITY, RIGHT CLINICAL INFORMATION: Right lower extremity edema, pain and redness COMPARISON: None available. TECHNIQUE: Ultrasound of the deep veins is performed from the hip to the calf with compression sonography and color and pulse Doppler assessment. Spectral analysis with color-flow imaging is performed. FINDINGS: There is normal venous compression and respiratory variation and augmented flow. The visualized common femoral vein, superficial femoral vein, profunda femoral vein, popliteal vein, and the trifurcation region shows no evidence of deep venous thrombosis. There is no significant popliteal fossa cyst. The left common femoral vein was examined and appeared normal. If the patient's symptoms persist, followup ultrasound in 5 days 7 days might be of value to exclude proximal propagation from a non-visualized calf vein. US/US venous duplex LE RT IMPRESSION: No DVT demonstrated in the right lower extremity.
[2023-04-10 13:00] VITALS: BP 142/98; BP 146/109; PULSE 94; PULSE 99; RESP 20; TEMP 36.7; O2SAT 96; O2SAT 97; BMI 27.2
[2023-04-10 13:16] VITALS: BP 146/109; PULSE 98; RESP 18; TEMP 36.7; O2SAT 96
--- NOTE | 2023-04-10 13:17 | PC.NURSE ---
[place] [facility] [place] complaints of RLE pain & abdominal pain. Per pt the leg pain is acute on chronic. Abdominal pain is new onset x24 hours ago, with accompanying nausea & vomiting. Pt states that the discomfort made it impossible for him to sleep. RLE pain exacerbated with ambulation. Pt poor historian, states that he does take medication for chronic leg pain & hypertension but cannot remember the names. VSS. Pedal pulses palpable, no obvious signs of trauma/infection to RLE. Awaiting provider recommendation. [facility]
[2023-04-10 14:00] VITALS: BP 179/98; PULSE 85; RESP 18; TEMP 36.8; O2SAT 98
--- NOTE | 2023-04-10 14:01 | ED.GENADULT ---
HPI - General Adult General Chief complaint: Abdominal Pain Stated complaint: ABD/BLE PAIN/SWELLING PER EMS Time Seen by Provider: 04/10/23 13:29 Source: patient and employee health nurse Mode of arrival: EMS History of Present Illness HPI narrative: This is a 72-year-old male who arrives via EMS with complaints of right lower extremity pain that started last night while he was walking and has worsened instead of improving. Patient denies any trauma to that extremity. Patient also describes upper abdominal discomfort with associated nausea but no vomiting and he endorses that he had a bowel movement last night and has continued to pass flatus. He denies any dysuria and states his last urination was this morning. He does have a history diabetes. Related Data Home Medications Medication Instructions Recorded Confirmed amitriptyline 25 mg tablet 25 mg PO BEDTIME 12/24/22 amlodipine 10 mg tablet 10 mg PO DAILY 12/24/22 esomeprazole magnesium 40 mg 40 mg PO DAILY 12/24/22 capsule,delayed release glipizide 10 mg tablet 10 mg PO BID 12/24/22 melatonin 10 mg capsule 10 mg PO BEDTIME 12/24/22 metoprolol succinate 100 mg 100 mg PO DAILY 12/24/22 tablet,extended release 24 hr multivitamin with folic acid 400 1 tab PO ONCE 12/24/22 mcg tablet (Daily-Maria Elena (with folic acid)) Previous Rx's Medication Instructions Recorded naproxen 500 mg tablet 500 mg PO BID PRN pain 10 days #20 12/15/22 tabs prednisone 20 mg tablet 40 mg (2 x 20 mg) PO DAILY 5 days 12/15/22 #10 tabs naproxen 500 mg tablet 500 mg PO BID #20 tabs 04/04/23 prednisone 20 mg tablet 40 mg (2 x 20 mg) PO DAILY 5 days 04/04/23 #10 tabs Allergies Allergy/AdvReac Type Severity Reaction Status Date / Time No Known Allergies Allergy Verified 04/10/23 13:00 Review of Systems Review of Systems: Pertinent positives and negatives as stated in HPI [facility] [place] Past Medical History Source: nursing notes reviewed Medical History Benign prostatic hyperplasia with lower urinary tract symptoms GERD (gastroesophageal reflux disease) Social History Social History Unable to assess alcohol history related to: Unknown Alcohol intake: never Smoked in Last 30 Days: No Use of substances other than those prescribed or required for medical reasons: No Advance Directives: No Advance Directives Information Provided: Yes Physical Exam ED Vital Signs: Vital Signs - 24 hr 04/10/23 13:00 04/10/23 13:16 04/10/23 14:00 Temperature 98.0 F 98.0 F 98.2 F Pulse Rate 94 98 85 Respiratory Rate 20 18 18 Blood Pressure 146/109 H 146/109 H 179/98 H Pulse Oximetry 96 96 98 Oxygen Delivery Method Room Air Room Air Room Air BMI result Body Mass Index 27.2 VITAL SIGNS: Reviewed. GENERAL: Well developed, well nourished, in no acute distress. HEAD: Normocephalic/atraumatic EYES: PERRLA, EOMI EARS: Ext canals without abnormality NOSE: Nares patent bilateral OROPHARYNX: no oral lesions noted, posterior pharynx clear NECK: Supple, no adenopathy LUNGS: Normal breath sounds. No adventitious sounds or accessory muscle use. SpO2<96> CARDIOVASCULAR: Regular rate and rhythm without noted murmurs, no JVD or lower extremity edema. ABDOMEN: Soft, non-tender, non-distended with bowel sounds. MUSCULOSKELETAL: No tenderness, deformities, or effusions noted on gross inspection. EXTREMITIES: No cyanosis, clubbing or edema. RLE: Tenderness to palpation over medial aspect of the right knee with some overlying redness and swelling, DP/PT palpable with warm foot and good capillary refill. SKIN: Inspection of the skin reveals no rashes NEUROLOGIC: Alert and oriented x 4. Strength and sensation to light touch were grossly intact x 4. Medical Decision Making Medical Decision Making MDM Narrative: 72-year-old male with history and clinical presentation, DDX: DVT, thrombophlebitis, gout, diverticulitis, low clinical suspicion for acute limb ischemia or claudication, SBO, urinary retention, UTI, patient has surgical scar on right upper quadrant consistent with cholecystectomy. Patient otherwise appears comfortable although continues to complain of significant discomfort to the right lower extremity. Venous ultrasound is negative for evidence of DVT, suspect a possibility of gout to the right knee. 4V knee x-ray on 04/04 demonstrates tricompartmental disease. I reviewed all investigations and hematologic indices are significant for a leukocytosis with an elevated platelet count but no left shift there is a stable normocytic anemia. Coagulation studies are within normal limits. Chemistry indices are consistent with CKD and mild hyperglycemia without evidence of DKA or HHS. Urinalysis negative for UTI and hematuria. Signed out to Dr. Granger. - f/u CT scan for intra-abdominal etiology of pain/nausea Differential Diagnosis Differential Diagnoses: The differential diagnosis associated with the presentation includes Please see the discussion above Admission/Observation Consideration of admission/observation: Escalation of care including admission/observation considered Please see the discussion above Lab Data MDM Lab Attestation statement: I reviewed the patient's lab results. Please see the discussion above 04/10/23 14:11 04/10/23 14:11 Labs: Lab Results 04/10/23 04/10/23 04/10/23 Range/Units 14:09 14:11 15:15 WBC 12.9 H (4.8-10.8) X10*3/uL RBC 4.49 L D (4.60-5.80) X10*6/uL Hgb 13.4 L (14.0-18.0) g/dl Hct 40.7 L (42.0-52.0) % MCV 90.6 (80.0-98.0) fL MCH 29.8 (27.0-33.0) pg MCHC 32.9 (31.0-36.0) g/dl RDW 12.1 (11.0-16.0) % Plt Count 504 H D (160-400) X10*3/uL MPV 9.6 (9.4-12.4) fL Immature Gran % (Auto) 1.1 H (0.0-0.4) % Neut % (Auto) 59.6 (45-73) % Lymph % (Auto) 28.6 (20-40) % [place] % (Auto) 9.5 (2-11) % Eos % (Auto) 0.9 (0-4) % Baso % (Auto) 0.3 (0-2) % Lymph # (Auto) 3.7 (1.2-4.9) X10*3/uL [place] # (Auto) 1.2 (0.1-1.2) X10*3/uL Eos # (Auto) 0.1 (0.0-0.4) X10*3/uL Baso # (Auto) 0.0 (0.0-0.2) X10*3/uL Abs Immat Gran (auto) 0.14 H (0.00-0.03) X10*3/uL Absolute Neuts (auto) 7.7 (2.0-8.3) x10*3/uL Absolute Nucleated RBC 0.000 (0.0-0.012) X10*3/uL Nucleated RBC % (auto) 0.0 (0.0-0.2) /100WBC PT 12.2 (11.1-13.3) SEC INR 1.0 (0.9-1.1) Sodium 142 (135-145) mmol/L Potassium 4.9 (3.3-5.1) mmol/L Chloride 109 H (96-108) mmol/L Carbon Dioxide 22 (22-29) mmol/L Anion Gap 16 (12-20) BUN 64 H (9-16) mg/dL Creatinine 2.61 H (0.5-1.4) mg/dL Estim Creat Clear Calc 27.2 Estimated GFR 24 POC Glucose 239 H (60-115) mg/dL Random Glucose 245 H (60-115) mg/dL Calcium 9.7 D (8.4-10.2) mg/dL Total Bilirubin 0.7 (0.0-1.0) mg/dL AST 53 H (5-37) U/L ALT 30 (0-40) U/L Alkaline Phosphatase 75 (39-117) U/L Total Protein 8.2 H (6.5-8.0) g/dL Albumin 3.6 (3.5-5.0) g/dL Urine Color Yellow Urine Appearance Clear Urine pH 5.5 (5.0-9.0) Ur Specific [place] 1.020 (1.005-1.025) Urine Protein 100 (2+) H (Neg-Trace) mg/dL Urine Glucose (UA) 100 H (Negative) mg/dL Urine Ketones Negative (Negative) mg/dL Urine Blood Negative (Negative) Urine Nitrite Negative (Negative) Ur Leukocyte Esterase Negative (Negative) External Record Review External record reviewed: Outpatient record, Prior outpatient labs and Prior outpatient radiology Chronic Conditions Patient?s care impacted by: Diabetes and Other Gout, BPH Critical Care Time Critical Care Time Critical Care Time: Yes Total Critical Care Time: 30 Attestation: I personally attest to this time spent taking care of the patient. Discharge Plan Discharge Clinical Impression: Knee pain, right, Epigastric abdominal pain Patient Disposition: Still a Patient Prescriptions: No Action prednisone 20 mg tablet 40 mg PO DAILY 5 Days Qty: 10 0RF naproxen 500 mg tablet 500 mg PO BID PRN (Reason: pain) 10 Days Qty: 20 0RF prednisone 20 mg tablet 40 mg PO DAILY 5 Days Qty: 10 0RF naproxen 500 mg tablet 500 mg PO BID Qty: 20 0RF amitriptyline 25 mg tablet 25 mg PO BEDTIME metoprolol succinate 100 mg tablet extended release 24 hr 100 mg PO DAILY glipizide 10 mg tablet 10 mg PO BID multivitamin with folic acid [Daily-Maria Elena (with folic acid)] 400 mcg tablet 1 tab PO ONCE esomeprazole magnesium 40 mg capsule,delayed release(DR/EC) 40 mg PO DAILY melatonin 10 mg capsule 10 mg PO BEDTIME amlodipine 10 mg tablet 10 mg PO DAILY
[2023-04-10 14:15] LABS: MANUAL DIFF FLAG NO
[2023-04-10 14:17] LABS: Basophils Percent Auto 0.3 % (0-2); Eosinophils Absolute Auto 0.1 X10*3/uL (0.0-0.4); Eosinophils Percent Auto 0.9 % (0-4); Hematocrit 40.7 % (42.0-52.0); Hemoglobin 13.4 g/dl (14.0-18.0); Imm Gran Abs Auto 0.14 X10*3/uL (0.00-0.03); Imm Gran Pct Auto 1.1 % (0.0-0.4); Lymphocytes Absolute Auto 3.7 X10*3/uL (1.2-4.9); Lymphocytes Percent Auto 28.6 % (20-40); Mean Corpuscular HGB Conc 32.9 g/dl (31.0-36.0); Mean Corpuscular Hemoglobin 29.8 pg (27.0-33.0); Mean Corpuscular Volume 90.6 fL (80.0-98.0); Mean Platelet Volume 9.6 fL (9.4-12.4); Monocytes Absolute Auto 1.2 X10*3/uL (0.1-1.2); Monocytes Percent Auto 9.5 % (2-11); Neutrophils Absolute Auto 7.7 x10*3/uL (2.0-8.3); Neutrophils Percent Auto 59.6 % (45-73); Platelet Count 504 X10*3/uL (160-400); Red Blood Count 4.49 X10*6/uL (4.60-5.80); Red Cell Distribution Width 12.1 % (11.0-16.0); White Blood Count 12.9 X10*3/uL (4.8-10.8)
[2023-04-10 14:26] LABS: Prothrombin Time 12.2 SEC (11.1-13.3)
--- NOTE | 2023-04-10 14:32 | PC.NURSE ---
Unable to obtain IV access; Requesting U/S IV Placement. Bladder scan complete - 199mL, patient tolerated well. Pt presently at US for venous duplex.
[2023-04-10 14:37] LABS: Alanine Aminotransferase 30 U/L (0-40); Albumin Level 3.6 g/dL (3.5-5.0); Alkaline Phosphatase 75 U/L (39-117); Anion Gap 16 (12-20); Aspartate Amino Transferase 53 U/L (5-37); Bilirubin Total 0.7 mg/dL (0.0-1.0); Blood Urea Nitrogen 64 mg/dL (9-16); Calcium 9.7 mg/dL (8.4-10.2); Carbon Dioxide 22 mmol/L (22-29); Chloride 109 mmol/L (96-108); Creatinine Clr Calc Pharmacy 27.2; Estimated Glomerular Filt Rate 24; Glucose Random 245 mg/dL (60-115); Potassium 4.9 mmol/L (3.3-5.1); Sodium 142 mmol/L (135-145); Total Protein 8.2 g/dL (6.5-8.0)
[2023-04-10 14:45] LABS: Glucose, Whole Blood 239 mg/dL (60-115)
--- NOTE | 2023-04-10 15:33 | PC.NURSE ---
Ultrasound guided 22g to L Bicep placed; All labs sent; U/S study complete; Pt to CT.
[2023-04-10 15:44] LABS: Appearance Urine Clear; Color Urine Yellow; Glucose Urine UA 100 mg/dL (Negative); Leukocyte Esterase Urine Negative (Negative); Nitrite Urine Negative (Negative); PH 5.5 (5.0-9.0); UMIC TRIGGER UACC YES; Urine Blood Negative (Negative); Urine Ketones Negative (Negative); Urine Protein 100 (2+) mg/dL (Neg-Trace)
[2023-04-10 15:49] LABS: Bacteria Urine None Seen (None Seen); RBC Urine 0-2 /HPF (0-2); Squamous Epithelial Cell Urine 0-2 /HPF (0-2); WBC Urine 0-5 /HPF (0-5)
[2023-04-10 16:00] VITALS: BP 162/84; PULSE 82; RESP 18; TEMP 36.7; O2SAT 98
[2023-04-10] MEDS: Ketorolac Tromethamine 30 MG/ML VIAL 15 MG IVPUSH (16:04)
[2023-04-10] MEDS: ondansetron HCL 4 MG/2 ML VIAL IVPUSH (16:04)
[2023-04-10] MEDS: Acetaminophen 325 MG TABLET 975 MG PO (16:04)
[2023-04-10 16:24] LABS: Lactic Acid 1.4 mmol/L (0.5-2.0)
[2023-04-10] MEDS: Amoxicillin/Potassium Clav 875 MG TABLET PO (17:03)
[2023-04-10] MEDS: Colchicine 0.6 MG TABLET 1.2 MG PO (17:20)
[2023-04-10] MEDS: Colchicine 0.6 MG TABLET PO (17:21)
== END 2023-04-10 17:25 | disposition home or self-care (01) ==
PROVIDERS: Emergency Provider Student in an Organized Health Care Education/Training Program
DX: K29.70 Gastritis, unspecified, without bleeding (principal); R60.0 Localized edema; M25.561 Pain in right knee; M79.661 Pain in right lower leg; R10.13 Epigastric pain; Z79.899 Other long term (current) drug therapy
CPT/HCPCS: 36415; 51798; 74176; 80053; 81001; 82947; 83605; 85025; 85610; 93971; 96374; 96375; 99284; 99285; J1885; J2405

== ENCOUNTER 2023-05-02 10:54 | Outpatient (AMB) | payer OTHER, SELFPAY ==
--- NOTE | 2023-05-02 11:37 | MHC.OFFVIS ---
Intake Vital Signs 05/02/23 11:39 Height 6 ft Weight 200 lb BMI 27.1 Intake Visit Reasons: Ov- B/L Knee pain Intake Note: Phil is a 72 year old male who presents today for a follow up of his bilateral knee pain. At last visit we discussed TKA. Hx of Injections with Dr. Franco Would like a letter for 1st floor housing Allergies No Known Allergies Allergy (Verified 04/10/23 13:00) HPI Ov- B/L Knee pain HPI Details Phil is a 73 year old Diabetic man who returns with complaints of bilateral knee pain, R>L. He was recently seen in the ED on 04/04/23 with complaints of worsening knee pain & swelling. His knee was aspirated and he says this improved his pain somewhat. He was last seen on 12/24/22 where surgery was discussed, but he was going to discuss this options with his family and follow up prn. He would like to discuss a letter with housing restrictions. He complains of pain with daily activity, worse with walking or using stairs. He walks using a cane and takes NSAIDs and recently finished a course of PO Prednisone, given to him by the ED. He lives in an apartment building without an elevator and says this is very painful & difficult for him to leave his home. He would like a note to transition to the bottom floor of his building. He has bilateral knee OA and a hx of pseudo-Gout & Diabetes. He has a hx of knee injections done by Dr. Franco. [facility] Medical History Benign prostatic hyperplasia with lower urinary tract symptoms GERD (gastroesophageal reflux disease) Social History Unable to assess alcohol history related to: Unknown Alcohol intake: never Physical Exam Vital Signs: BMI result Body Mass Index 27.1 Assessment & Plan Assessment & Plan (1) Bilateral primary osteoarthritis of knee: Code(s): M17.0 - Bilateral primary osteoarthritis of knee Plan: This is a 73 year old man with bilateral knee OA, R>L, and a hx of Pseudo-gout. He has pain with daily activity, worse with ambulation or using stairs. He is limited in his ambulation by his knee pain & Gout. He has a hx of relief from aspiration and steroid injections in the past. He ambulates with antalgia and has constant pain. He does not have recent labwork but labs from 2020 show Hgb A1C of 7.4 and elevated renal function tests. I discussed his diagnosis and treatment options. He would benefit from a TKA. I explained this surgery to Phil including the risks, benefits, and recovery timeline. He will come back with his family to discuss in detail, I recommend he remain active and use his assistive cane. He was given a note for his apartment complex to transition to 1st floor housing due to his physical limitations. Orders: Orders Hemoglobin A1c 05/02/23 Z01.812 - Encounter for preprocedural laboratory examination Coding Level of Care Code Est Pt Level 4 (40733) Diagnoses Bilateral primary osteoarthritis of knee M17.0
[2023-05-02 11:39] VITALS: BMI 27.1
== END 2023-05-02 12:26 | disposition home or self-care (01) ==
PROVIDERS: Visit Provider Orthopaedic Surgery
DX: M17.0 Bilateral primary osteoarthritis of knee (principal)
CPT/HCPCS: 99214

== ENCOUNTER → 2023-05-02 10:54 | Outpatient (BNVA) | payer OTHER, SELFPAY | PROVIDERS: Visit Provider Orthopaedic Surgery | DX: Z01.812 Encounter for preprocedural laboratory examination (principal); M17.0 Bilateral primary osteoarthritis of knee; M25.562 Pain in left knee; M25.561 Pain in right knee | CPT/HCPCS: 99212 ==

== ENCOUNTER 2023-07-08 08:21 | Outpatient (REF) | payer OTHER, SELFPAY ==
[2023-07-08 09:21] LABS: Anion Gap 14 (12-20); Blood Urea Nitrogen 29 mg/dL (9-16); Calcium 9.2 mg/dL (8.4-10.2); Carbon Dioxide 24 mmol/L (22-29); Chloride 109 mmol/L (96-108); Estimated Glomerular Filt Rate 25; Glucose Random 69 mg/dL (60-115); Potassium 4.8 mmol/L (3.3-5.1); Sodium 142 mmol/L (135-145)
== END 2023-07-08 08:22 | disposition home or self-care (01) ==
LOC: HO.LAB 08:21
PROVIDERS: PCP Internal Medicine; Visit Provider Internal Medicine
DX: E11.22 Type 2 diabetes mellitus with diabetic chronic kidney disease (principal); N18.4 Chronic kidney disease, stage 4 (severe)
CPT/HCPCS: 36415; 80048

== ENCOUNTER 2023-07-10 08:23 | Outpatient (REF) | payer OTHER, SELFPAY ==
[2023-07-10 09:52] LABS: Estimated Average Glucose 126 mg/dL
== END 2023-07-10 08:24 | disposition home or self-care (01) ==
LOC: HO.LAB 08:23
PROVIDERS: PCP Internal Medicine; Visit Provider Orthopaedic Surgery
DX: Z01.812 Encounter for preprocedural laboratory examination (principal)
CPT/HCPCS: 36415; 83036

== ENCOUNTER 2023-07-12 10:05 | Outpatient (AMB) | payer OTHER, SELFPAY ==
--- NOTE | 2023-07-12 10:25 | A.OFFVIS_ITS ---
Intake Intake Visit Reasons: OV-Right knee drained - A1C? Intake Note: Phil is a 72 year old male who presents today for a follow up of his bilateral knee pain. We have previously discussed Right TKA. A1C drawn 07/10/23 was 6 Allergies No Known Allergies Allergy (Verified 04/10/23 13:00) HPI OV-Right knee drained - A1C? HPI Details Phil is a 73 year old Diabetic man who returns to discuss his bilateral knee OA R>L. He would like to have his right knee aspirated again today. He complains of pain with daily activity, worse with walking or using stairs. He walks using a cane and takes NSAIDs. He has bilateral knee OA and a hx of pseudo-Gout & Diabetes. He has managed to reduce his HgA1c to 6.0% on 07/10/23. He has a hx of knee injections done by Dr. Franco. We have discussed arthroplasty but he is not ready as he is currently trying to move to a ground floor apartment. He is here today with his son. [facility] Medical History Benign prostatic hyperplasia with lower urinary tract symptoms GERD (gastroesophageal reflux disease) Social History Unable to assess alcohol history related to: Unknown Alcohol intake: never Review of Systems Const All systems reviewed & are unremarkable except as noted in HPI and below Physical Exam Const General: no acute distress, alert and awake Orientation/consciousness: patient oriented x3 HEENT Head: Yes normocephalic and Yes atraumatic Eyes EOM: EOMs intact bilaterally Resp Effort & Inspection: normal respiratory effort and able to speak in complete sentences Cardio Jugular venous distension: no JVD Skin General skin exam: turgor normal Rashes: no rashes Neuro General: patient oriented x3 Extrem Other: Right knee with suprapatellar effusion and martinez's cyst. TTP medial compartment Psych Appearance: grossly normal Affect: normal affect Attitude: cooperative Office Procedures Joint Injection/Drain Joint Injection/Drain Details: Injected 1 mL of Decadron and 3 mL 1% lidocaine and 3 mL of 0.25% Marcaine. Site was prepped using aseptic technique. Patient tolerated the procedure well. Primary Site: right knee Approach Used: anterolateral Coding 57533 - Large joint Procedure code (CPT) selection complete Assessment & Plan Assessment & Plan (1) Bilateral primary osteoarthritis of knee: Code(s): M17.0 - Bilateral primary osteoarthritis of knee Plan: Right knee OA that is painful and liumiting his QOL and ambulatory capacity. Discussed treatment options. I recommend injections. Explained the hyperglycemic effects which he is aware of and his sugars are typically well controlled and in the low to mid 100's. F/u 3 mo. (2) Diabetes mellitus: Code(s): E11.9 - Type 2 diabetes mellitus without complications Plan: Explained the hyperglycemic effects of steroids. Plan Prepared for Khadar Almeida MD by Mark Cabrera, biomedical electronics technician, on 07/12/23 at 10:38 AM, EST. Coding Level of Care Code Est Pt Level 4 (00471) Diagnoses Bilateral primary osteoarthritis of knee M17.0 Diabetes mellitus E11.9 CPT Codes Coding - 80429 Large joint: 65939 - Large joint ([id number])
== END 2023-07-12 10:49 | disposition home or self-care (01) ==
PROVIDERS: Visit Provider Orthopaedic Surgery
DX: M17.0 Bilateral primary osteoarthritis of knee (principal); E11.9 Type 2 diabetes mellitus without complications
CPT/HCPCS: 20610; 99214

== ENCOUNTER → 2023-07-12 10:05 | Outpatient (BNVA) | payer OTHER, SELFPAY | PROVIDERS: Visit Provider Orthopaedic Surgery | DX: M17.0 Bilateral primary osteoarthritis of knee (principal); E11.9 Type 2 diabetes mellitus without complications | CPT/HCPCS: 20610; 99212; J0665; J1100 ==

== ENCOUNTER 2023-08-12 07:28 | Emergency (ER) | payer OTHER, SELFPAY ==
--- NOTE | ~2023-08-12 | XR_ITS ---
EXAMINATION: XR ELBOW, RIGHT CLINICAL INFORMATION: Right elbow swelling and redness. COMPARISON: None available. TECHNIQUE: AP, lateral, and oblique views of the right elbow. FINDINGS: The soft tissue swelling posterior to the olecranon is consistent with olecranon bursitis. Also, there is swelling/edema of soft tissues at the posterior and medial elbow region without soft tissue gas or radiopaque foreign body. Bones have normal alignment. The joint spaces are maintained. No erosions or periostitis. There is an olecranon enthesophyte at the triceps tendon attachment. No elbow joint effusion. There is arterial vascular calcification within the visualized proximal forearm. XR/XR elbow RT 2V IMPRESSION: * Olecranon bursitis is suspected. Also, there is soft tissue edema of the proximal forearm and elbow region without soft tissue gas. * No acute osseous injury. * No radiographic evidence of septic arthritis or osteomyelitis.
--- NOTE | ~2023-08-12 | XR_ITS ---
EXAMINATION: XR HAND, RIGHT CLINICAL INFORMATION: Right hand swelling. COMPARISON: None available. TECHNIQUE: PA, lateral, and oblique views of the right hand. FINDINGS: Bones have normal alignment within the hand or wrist. No evidence of acute fracture or subluxation. No erosions or periostitis. Findings include small marginal osteophytes at DIP joints of the second and third digits. There are peripheral vascular calcifications. No focal soft tissue swelling or soft tissue gas. XR/XR hand RT 2V IMPRESSION: * No acute osseous injury in the right wrist or hand. 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
[2023-08-12 08:34] VITALS: BP 145/64; PULSE 58; RESP 16; TEMP 36.4; O2SAT 99
--- NOTE | 2023-08-12 09:04 | ED_ITS ---
HPI - General Adult General Chief complaint: Extremity Problem Stated complaint: r elbow pain Time Seen by Provider: 08/12/23 09:03 Source: patient and family (patient's son) Mode of arrival: ambulatory Limitations: no limitations History of Present Illness HPI narrative: Patient is a 73 year old, assigned male at , with a history of HTN, DM II, GERD, horseshoe kidney, arthritis, and gout, presenting to the ED with a 2 day history of right elbow/wrist redness, pain, and swelling. Patient denies recent trauma to area, fevers, headache, lightheadedness, dizziness chills, changes to vision, SOB, and chest pain. Patient reports a history of eating a lot of seafood over the past couple weeks and not taking any medication for his gout. MD complaint: Right elbow/wrist pain and swelling Onset (ago): day(s) (2) Location: right and upper extremity (Elbow/wrist) Radiation: non-radiation Severity: mild Severity scale (1-10): 2 Quality: burning and aching Pain Consistency: constant Relieving factors: rest Exacerbating factors: movement Associated symptoms: denies other symptoms Treatments prior to arrival: NSAID Related Data Home Medications Medication Instructions Recorded Confirmed amitriptyline 25 mg tablet 25 mg PO BEDTIME 12/24/22 amlodipine 10 mg tablet 10 mg PO DAILY 12/24/22 esomeprazole magnesium 40 mg 40 mg PO DAILY 12/24/22 capsule,delayed release glipizide 10 mg tablet 10 mg PO BID 12/24/22 melatonin 10 mg capsule 10 mg PO BEDTIME 12/24/22 metoprolol succinate 100 mg 100 mg PO DAILY 12/24/22 tablet,extended release 24 hr multivitamin with folic acid 400 1 tab PO ONCE 12/24/22 mcg tablet (Daily-Maria Elena (with folic acid)) Previous Rx's Medication Instructions Recorded naproxen 500 mg tablet 500 mg PO BID PRN pain 10 days #20 12/15/22 tabs prednisone 20 mg tablet 40 mg (2 x 20 mg) PO DAILY 5 days 12/15/22 #10 tabs naproxen 500 mg tablet 500 mg PO BID #20 tabs 04/04/23 prednisone 20 mg tablet 40 mg (2 x 20 mg) PO DAILY 5 days 04/04/23 #10 tabs amoxicillin 875 mg-potassium 1 tab PO BID 5 days #10 tabs 04/10/23 clavulanate 125 mg tablet naproxen 500 mg tablet 500 mg PO BID 7 days #14 tabs 08/12/23 omeprazole 40 mg capsule,delayed 40 mg PO DAILY #7 caps 08/12/23 release prednisone 20 mg tablet 20 mg PO DAILY 7 days #7 tabs 08/12/23 Allergies Allergy/AdvReac Type Severity Reaction Status Date / Time No Known Allergies Allergy Verified 04/10/23 13:00 Review of Systems Constitutional: Constitutional: Reports no additional constitutional complaints, Denies chills, Denies fever(s) and Denies night sweats Eyes: Eyes: Reports no additional eye complaints, Denies blurry vision, Denies change in vision, Denies diplopia, Denies eye discharge, Denies loss of vision and Denies eye pain ENT: Denies dizziness Cardiovascular: Cardiovascular: Reports no additional cardiovascular complaints, Denies chest pain, Denies lightheadedness, Denies Loss of Consciou sness and Denies dyspnea Respiratory: Respiratory: Reports no additional respiratory complaints and Denies dyspnea Gastrointestinal: Gastrointestinal: Reports no additional gastrointestinal complaints, Denies abdominal pain, Denies melena, Denies hematochezia, Denies change in bowel habits and Denies change in stool character Genitourinary: Genitourinary: Reports no additional male genitourinary complaints, Denies hematuria, Denies oliguria, Denies difficulty urinating, Denies dysuria, Denies urinary frequency, Denies urinary hesitancy, Denies urinary incontinence and Denies urinary urgency Musculoskeletal: Musculoskeletal: Reports no additional musculoskeletal complaints, Denies numbness and Denies tingling Comments: right elbow redness and swelling Neurologic: Denies dizziness, Denies loss of vision, Denies numbness and Denies tingling Psychiatric: Psychiatric: Reports no additional psychiatric complaints Endocrine: Endocrine: Reports no additional endocrine complaints Hematologic/Lymphatic: Hematologic/Lymphatic: Reports no additional hematologic/lymphatic complaints Allergic/Immunologic: Allergic/Immunologic: Reports no additional allergic/immunologic complaints PMFSH Past Medical History Attestation statement: The following information was validated with the patient. (patient's son validated all information) Source: old records reviewed, obtained from family (patient's son provided additional history and confirmed the history provided by the patient) and nursing notes reviewed Medical History Benign prostatic hyperplasia with lower urinary tract symptoms GERD (gastroesophageal reflux disease) Social History Social History Unable to assess alcohol history related to: Unknown Alcohol intake: never Smoked in Last 30 Days: No Use of substances other than those prescribed or required for medical reasons: No Advance Directives: No Advance Directives Information Provided: No Physical Exam ED Vital Signs: Vital Signs - 24 hr 08/12/23 08:34 Temperature 97.5 F Pulse Rate 58 Respiratory Rate 16 Blood Pressure 145/64 H Pulse Oximetry 99 Oxygen Delivery Method Room Air BMI result Body Mass Index 0.0 Const General: cooperative, no acute distress, alert and awake Nutritional Appearance: well nourished Orientation/consciousness: patient oriented x3 Limitations: no limitations HENMT Head: Yes normal to inspection Ears: hearing grossly normal bilaterally General nose exam: Normal external nose present Face and sinus: Yes normal facial exam Mouth: Normal oral and palatal mucosa present Throat: Yes posterior oropharynx normal Eyes General: appearance normal, both eyes and all related structures Periorbital: periorbital findings normal Eyelids: Yes eyelids normal Conjunctivae: conjunctivae normal Pupils: Equal, round and reactive pupils present EOM: EOMs intact bilaterally Neck Neck: Yes normal visual inspection, Yes full ROM and Yes no lymphadenopathy Chest Chest palpation & inspection: normal inspection of the chest Resp Effort & Inspection: normal respiratory effort and able to speak in complete sentences Auscultation: clear to auscultation bilaterally Cardio Jugular venous distension: no JVD Palpation: normal PMI Rate: regular rate Rhythm: regular rhythm GI Inspection: Yes normal to inspection Skin General skin exam: erythema (right elbow) Neuro General: patient oriented x3 Cranial nerves: Yes Equal, round and reactive pupils present Cognition (Neuro): normal cognition Motor exam (neuro): 5/5 motor strength present throughout Sensory Exam: Normal double simultaneous stimulation for sensation Coordination: [id number] test normal Extrem General: Yes normal to inspection, Yes full ROM and Yes capillary refill normal Right upper extremity: full ROM, normal capillary refill, elbow/forearm Details: tenderness Location: of the olecranon, swelling Location: of the olecranon, warmth Location: of the elbow joint and other (Erythematous) and Extremity exam: right hand Details: swelling Psych Appearance: grossly normal Mental Status: mental status grossly normal Affect: normal affect Attitude: cooperative Thought process: Normal thought process present Thought content: Normal thought content present Insight: Good insight present (Psych) Medical Decision Making Medical Decision Making MDM Narrative: Patient is a 73 year old assigned male at with a history of DM and gout presenting to the emergency department today with right elbow redness, swelling, and pain. Patient's physical exam was as noted in the physical exam portion of this note. Patient's right wrist x-ray showed no acute process. Patient's right elbow x-ray showed bursitis. I explained my physical exam findings as well as all test results to the patient and the son. I answered all questions asked by the patient and the patient's son. Patient's clinical presentation is more consistent with gout than bursitis. Patient expressed concern about previous gastritis issues due to NSAIDs and Prednisone. Recommended patient take PPI. I stressed the importance of the patient taking his medication as prescribed. I stressed the importance of the patient following up with his primary care provider. I stressed the importance of the patient returning to the emergency department immediately if his symptoms were to worsen or if he were to develop any dizziness, shortness of breath, difficulty breathing, chest pain, blurry vision, loss of vision, nausea, vomiting, abdominal pain, fever, chills, back pain, or any other complaints. Patient verbalized agreement and understanding with this treatment plan and discharge. Differential Diagnosis Differential Diagnoses: The differential diagnosis associated with the presentation includes Gout Bursitis Elbow pain Wrist pain Admission/Observation Consideration of admission/observation: Escalation of care including admission/observation considered Patient would have been admitted to the hospital had his work up had any findings where hospital admission was appropriate and his clinical presentation warranted hospital admission. Independent Interpretation I performed an independent interpretation of an: Plain X-Ray Interpretation: My interpretation is in agreement with the radiologist's impression of these imaging studies. EXAMINATION: XR HAND, RIGHT CLINICAL INFORMATION: Right hand swelling. COMPARISON: None available. TECHNIQUE: PA, lateral, and oblique views of the right hand. FINDINGS: Bones have normal alignment within the hand or wrist. No evidence of acute fracture or subluxation. No erosions or periostitis. Findings include small marginal osteophytes at DIP joints of the second and third digits. There are peripheral vascular calcifications. No focal soft tissue swelling or soft tissue gas. XR/XR hand RT 2V IMPRESSION: * No acute osseous injury in the right wrist or hand. 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 Dictated By: Kana Hatch MD Signed By: Electronically signed by Kana Hatch MD 08/12/23 1018 EXAMINATION: XR ELBOW, RIGHT CLINICAL INFORMATION: Right elbow swelling and redness. COMPARISON: None available. TECHNIQUE: AP, lateral, and oblique views of the right elbow. FINDINGS: The soft tissue swelling posterior to the olecranon is consistent with olecranon bursitis. Also, there is swelling/edema of soft tissues at the posterior and medial elbow region without soft tissue gas or radiopaque foreign body. Bones have normal alignment. The joint spaces are maintained. No erosions or periostitis. There is an olecranon enthesophyte at the triceps tendon attachment. No elbow joint effusion. There is arterial vascular calcification within the visualized proximal forearm. XR/XR elbow RT 2V IMPRESSION: * Olecranon bursitis is suspected. Also, there is soft tissue edema of the proximal forearm and elbow region without soft tissue gas. * No acute osseous injury. * No radiographic evidence of septic arthritis or osteomyelitis. Dictated By: Kana Hatch MD Signed By: Electronically signed by Kana Hatch MD 08/12/23 1014 Radiology Impression Discussion of test interpretation with radiology: I have reviewed the radiologist's reading. Independent Historian Clinical information obtained from an independent historian. History obtained from or confirmed by: Other (patient's son provided additional history and confirmed the history provided by the patient.) Prescription Management I considered prescription management with: Pain Medication (patient prescribed NSAID and prednisone for gout flare.) Chronic Conditions Patient?s care impacted by: Diabetes Discharge Plan Discharge Clinical Impression: Gout Patient Disposition: Home, Self-Care Instructions: Low Purine Diet (ED), Gout (ED) Additional Instructions: DOUBLE your GERD medication while you are on the prednisone and NSAIDs for your gout flare. Follow up with your primary care provider. Return to the emergency department immediately if your symptoms worsen or if you develop any dizziness, shortness of breath, difficulty breathing, chest pain, blurry vision, loss of vision, nausea, vomiting, abdominal pain, fever, chills, back pain, or any other complaints. Prescriptions: New prednisone 20 mg tablet 20 mg PO DAILY 7 Days Qty: 7 0RF naproxen 500 mg tablet 500 mg PO BID 7 Days Qty: 14 0RF omeprazole 40 mg capsule,delayed release(DR/EC) 40 mg PO DAILY Qty: 7 0RF No Action prednisone 20 mg tablet 40 mg PO DAILY 5 Days Qty: 10 0RF naproxen 500 mg tablet 500 mg PO BID PRN (Reason: pain) 10 Days Qty: 20 0RF prednisone 20 mg tablet 40 mg PO DAILY 5 Days Qty: 10 0RF naproxen 500 mg tablet 500 mg PO BID Qty: 20 0RF amoxicillin-pot clavulanate 875-125 mg tablet 1 tab PO BID 5 Days Qty: 10 0RF amitriptyline 25 mg tablet 25 mg PO BEDTIME metoprolol succinate 100 mg tablet extended release 24 hr 100 mg PO DAILY glipizide 10 mg tablet 10 mg PO BID multivitamin with folic acid [Daily-Maria Elena (with folic acid)] 400 mcg tablet 1 tab PO ONCE esomeprazole magnesium 40 mg capsule,delayed release(DR/EC) 40 mg PO DAILY melatonin 10 mg capsule 10 mg PO BEDTIME amlodipine 10 mg tablet 10 mg PO DAILY Referrals: Uma Chung MD [Primary Care Provider] - Interventions: ED Discharge Assessment Last Done: 08/12/23 10:06 Discharge Date/Time: 08/12/23 10:07 Print Language: Macedonian
== END 2023-08-12 10:07 | disposition home or self-care (01) ==
PROVIDERS: Emergency Provider Emergency Medicine; PCP Internal Medicine
DX: M10.9 Gout, unspecified (principal); I10 Essential (primary) hypertension; E11.9 Type 2 diabetes mellitus without complications
CPT/HCPCS: 73070; 73120; 99283

== ENCOUNTER 2023-10-13 22:56 | Emergency (ER) | payer OTHER, SELFPAY ==
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
[2023-10-13 23:02] VITALS: BP 170/110; PULSE 73; O2SAT 97
[2023-10-13 23:07] VITALS: BP 130/85; PULSE 69; RESP 16; TEMP 36.8; O2SAT 98; BMI 27.1
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
[2023-10-14] MEDS: Acetaminophen 325 MG TABLET 650 MG PO (00:47)
[2023-10-14 01:09] VITALS: BP 140/65; PULSE 84; RESP 16; O2SAT 100
[2023-10-14 01:22] VITALS: BP 140/65; PULSE 84; RESP 16; TEMP 36.7; O2SAT 100
[2023-10-14 05:14] VITALS: BP 133/75; PULSE 64; RESP 16; O2SAT 99
== END 2023-10-14 05:30 | disposition home or self-care (01) ==
PROVIDERS: Emergency Provider Emergency Medicine
DX: S00.01XA Abrasion of scalp, initial encounter (principal); S20.212A Contusion of left front wall of thorax, initial encounter; M54.2 Cervicalgia; R51.9 Headache, unspecified; R07.81 Pleurodynia; R10.2 Pelvic and perineal pain; R10.12 Left upper quadrant pain; Y04.2XXA Assault by strike against or bumped into by another person, initial encounter; Y93.9 Activity, unspecified; Y92.9 Unspecified place or not applicable; Y99.8 Other external cause status; Z79.899 Other long term (current) drug therapy
CPT/HCPCS: 70450; 71250; 72125; 74176; 99284

== ENCOUNTER 2023-12-27 12:09 | Outpatient (AMB) | payer OTHER, SELFPAY ==
--- NOTE | 2023-12-27 12:14 | MHC.OFFVIS ---
Vital Signs 12/27/23 12:20 Height 6 ft Weight 199 lb BMI 27.0 Intake Visit Reasons: OV- RT knee pain Intake Note: Phil is a 72 year old male who presents today for a follow up of his right knee pain, last injection 07/12/23. Patient reports his last injection provided him with some relief. He currently has constant pain and would like to repeat injection. Allergies No Known Allergies Allergy (Verified 12/27/23 12:20) HPI HPI OV- RT knee pain: Details: Phil is a 73 year old Diabetic man who returns to discuss his bilateral knee OA R>L. He complains of pain with daily activity, worse with walking or using stairs. He has bilateral knee OA and a hx of pseudo-Gout & Diabetes. He has managed to reduce his HgA1c to 6.0% on 07/10/23. . [facility] Medical History Benign prostatic hyperplasia with lower urinary tract symptoms GERD (gastroesophageal reflux disease) Social History Unable to assess alcohol history related to: Unknown Alcohol intake: never Physical Exam Vital Signs: BMI result Body Mass Index 27.0 Const General: no acute distress, alert and awake Orientation/consciousness: patient oriented x3 HEENT Head: Yes normocephalic and Yes atraumatic Eyes EOM: EOMs intact bilaterally Resp Effort & Inspection: normal respiratory effort and able to speak in complete sentences Cardio Jugular venous distension: no JVD Skin General skin exam: turgor normal Rashes: no rashes Neuro General: patient oriented x3 Extrem Other: Right knee with suprapatellar effusion and martinez's cyst. TTP medial compartment Psych Appearance: grossly normal Affect: normal affect Attitude: cooperative Office Procedures Joint Injection/Aspiration Joint Injection/Aspiration Details: Injected 1 mL of Decadron and 3 mL 1% lidocaine and 3 mL of 0.25% Marcaine. Site was prepped using aseptic technique. Patient tolerated the procedure well. Primary Site: right knee Approach Used: anterolateral Coding 19360 - Large joint Procedure code (CPT) selection complete Assessment & Plan Assessment & Plan (1) Bilateral primary osteoarthritis of knee: Code(s): M17.0 - Bilateral primary osteoarthritis of knee Category: Medical Plan: Right knee OA that is painful and liumiting his QOL and ambulatory capacity. Discussed treatment options. I recommend injections. Explained the hyperglycemic effects which he is aware ofF/u 3 mo. (2) Diabetes mellitus: Code(s): E11.9 - Type 2 diabetes mellitus without complications Category: Medical Plan: Explained the hyperglycemic effects of steroids. Coding Level of Care Code Est Pt Level 4 (59844) Diagnoses Bilateral primary osteoarthritis of knee M17.0 Diabetes mellitus E11.9 CPT Codes Coding - 44001 Large joint: 63614 - Large joint ([id number])
[2023-12-27 12:20] VITALS: BMI 27.0
== END 2023-12-27 12:42 | disposition home or self-care (01) ==
PROVIDERS: Visit Provider Orthopaedic Surgery
DX: M17.0 Bilateral primary osteoarthritis of knee (principal); E11.9 Type 2 diabetes mellitus without complications
CPT/HCPCS: 20610; 99213

== ENCOUNTER → 2023-12-27 12:09 | Outpatient (BNVA) | payer OTHER, SELFPAY | PROVIDERS: Visit Provider Orthopaedic Surgery | DX: M17.0 Bilateral primary osteoarthritis of knee (principal); E11.9 Type 2 diabetes mellitus without complications | CPT/HCPCS: 20610; 99212; J0665; J1100 ==

== ENCOUNTER 2024-01-22 08:49 | Emergency (ER) | payer OTHER, SELFPAY ==
[2024-01-22 09:03] VITALS: BP 152/85; PULSE 63; RESP 18; TEMP 36.7; O2SAT 97; BMI 28.4
[2024-01-22 09:18] LABS: MANUAL DIFF FLAG NO
[2024-01-22 09:20] LABS: Basophils Absolute Auto 0.1 X10*3/uL (0.0-0.2); Basophils Percent Auto 0.6 % (0-2); Eosinophils Absolute Auto 0.2 X10*3/uL (0.0-0.4); Eosinophils Percent Auto 1.1 % (0-4); Hematocrit 35.2 % (42.0-52.0); Hemoglobin 11.8 g/dl (14.0-18.0); Imm Gran Abs Auto 0.05 X10*3/uL (0.00-0.03); Imm Gran Pct Auto 0.4 % (0.0-0.4); Lymphocytes Absolute Auto 1.9 X10*3/uL (1.2-4.9); Lymphocytes Percent Auto 13.2 % (20-40); Mean Corpuscular HGB Conc 33.5 g/dl (31.0-36.0); Mean Corpuscular Hemoglobin 31.1 pg (27.0-33.0); Mean Corpuscular Volume 92.6 fL (80.0-98.0); Mean Platelet Volume 9.8 fL (9.4-12.4); Monocytes Absolute Auto 1.1 X10*3/uL (0.1-1.2); Monocytes Percent Auto 8.1 % (2-11); Neutrophils Absolute Auto 10.8 x10*3/uL (2.0-8.3); Neutrophils Percent Auto 76.6 % (45-73); Platelet Count 279 X10*3/uL (160-400); Red Cell Distribution Width 11.9 % (11.0-16.0)
[2024-01-22 09:25] LABS: Appearance Urine Turbid; Color Urine Dark Yellow; Glucose Urine UA Negative (Negative); Leukocyte Esterase Urine Large (3+) (Negative); Nitrite Urine Positive (Negative); PH 6.5 (5.0-9.0); UMIC TRIGGER UACC YES; Urine Blood Large (3+) (Negative); Urine Ketones Negative (Negative); Urine Protein 300 (3+) mg/dL (Neg-Trace)
[2024-01-22 09:35] LABS: Alanine Aminotransferase 15 U/L (0-40); Alkaline Phosphatase 101 U/L (39-117); Anion Gap 13 (12-20); Aspartate Amino Transferase 23 U/L (5-37); Bilirubin Total 0.9 mg/dL (0.0-1.0); Blood Urea Nitrogen 35 mg/dL (9-16); Calcium 9.5 mg/dL (8.4-10.2); Carbon Dioxide 23 mmol/L (22-29); Chloride 108 mmol/L (96-108); Creatinine Clr Calc Pharmacy 30.3; Estimated Glomerular Filt Rate 25; Glucose Random 151 mg/dL (60-115); Sodium 139 mmol/L (135-145)
[2024-01-22 09:37] LABS: Bacteria Urine 2+ (None Seen); RBC Urine >20 /HPF (0-2); Squamous Epithelial Cell Urine 0-2 /HPF (0-2); UACC Culture Trigger YES; WBC Urine >50 /HPF (0-5)
[2024-01-22 11:27] VITALS: BP 229/88; PULSE 80; RESP 14; TEMP 36.3; O2SAT 99
--- NOTE | 2024-01-22 15:25 | ED_ITS ---
HPI - General Adult General Chief complaint: General Medical Stated complaint: private area concerns Time Seen by Provider: 01/22/24 15:25 Source: patient, RN notes reviewed, old records reviewed and aerial photograph interpreter (australian) Limitations: language barrier (australian speaking) History of Present Illness ED Provider: DMITRIY SIMMS PA-C HPI narrative: 73 year old Peruvian speaking male with pmhx significant for DM, gout, OA, BPH, HTN, and horseshoe kidney presents to the ED today for evaluation of dysuria, hematuria, and urinary hesitancy upon waking this morning. States that he is able to void however it is painful. Additionally endorses pain to his left knee. He has history of bilateral knee OA and follows with ortho for this, last appointment on 12/27/23. He is not a candidate for steroid injections d/t hyperglycemia effects. Pain is unchanged since visit w/ ortho. Denies fever, chills, N/V, abdominal pain, flank pain. seismic interpreter utilized throughout visit to communicate with patient. Patient's son is at bedside to assist with history. Triage note mentions painful, swollen testicles however patient is declining this to me. Related Data Home Medications ?Medication ?Instructions ?Recorded ?Confirmed amitriptyline 25 mg tablet 25 mg PO BEDTIME 12/24/22 amlodipine 10 mg tablet 10 mg PO DAILY 12/24/22 esomeprazole magnesium 40 mg 40 mg PO DAILY 12/24/22 capsule,delayed release glipizide 10 mg tablet 10 mg PO BID 12/24/22 melatonin 10 mg capsule 10 mg PO BEDTIME 12/24/22 metoprolol succinate 100 mg 100 mg PO DAILY 12/24/22 tablet,extended release 24 hr multivitamin with folic acid 400 1 tab PO ONCE 12/24/22 mcg tablet (Daily-Maria Elena (with folic acid)) Previous Rx's ?Medication ?Instructions ?Recorded prednisone 20 mg tablet 40 mg (2 x 20 mg) PO DAILY 5 days 12/15/22 #10 tabs naproxen 500 mg tablet 500 mg PO BID 7 days #14 tabs 08/12/23 omeprazole 40 mg capsule,delayed 40 mg PO DAILY #7 caps 08/12/23 release cefuroxime axetil 500 mg tablet 500 mg PO BID 7 days #14 tabs 01/22/24 phenazopyridine 100 mg tablet 100 mg PO TID PRN pain (scale 01/22/24 (Pyridium) score 4-6) 6 doses #6 tabs Allergies Allergy/AdvReac Type Severity Reaction Status Date / Time No Known Allergies Allergy Verified 01/22/24 09:05 Review of Systems 2 Review of Systems: Constitutional: No fever, chills, fatigue, night sweats, weight changes ENT/Mouth: No ear pain, hearing loss, nasal congestion, sinus pain, rhinorrhea, sore throat Eyes: No eye pain, swelling, redness, vision changes, discharge Cardio: No chest pain, palpitations, SANDERS, orthopnea, peripheral edema Pulm: No SOB, cough, sputum, wheezing, dyspnea, hemoptysis GI: No nausea, vomiting, hematemesis, abdominal pain, diarrhea, constipation, hematochezia, melena : No irregular bleeding, frequency, urgency, flank pain, urinary flow changes, urinary incontinence or retention, +dysuria, +hematuria, +urinary hesitancy MSK: No back pain, neck pain, joint pain, myalgias Skin: No lesions, rashes Neuro: No weakness, numbness, paresthesias, LOC, dizziness, headache Psych: No anxiety/panic, depression, SI/HI, AH/VH All other systems reviewed and are negative. [facility] Past Medical History Attestation statement: The following information was validated with the patient. Source: old records reviewed and nursing notes reviewed Medical History Benign prostatic hyperplasia with lower urinary tract symptoms GERD (gastroesophageal reflux disease) Social History Social History Unable to assess alcohol history related to: Unknown Alcohol intake: never Advance Directives: No Advance Directives Information Provided: No Do you have a plan to hurt others: No Plan Physical Exam ED Vital Signs: Vital Signs - 24 hr 01/22/24 09:03 01/22/24 11:27 01/22/24 15:42 Temperature 98.0 F 97.4 F 97.6 F Pulse Rate 63 80 61 Respiratory Rate 18 14 16 Blood Pressure 152/85 H 229/88 H 158/80 H Pulse Oximetry 97 99 100 Oxygen Delivery Method Room Air Room Air Room Air BMI result Body Mass Index 28.4 Patient is slightly hypertensive to 158/80, vitals otherwise WNL. Afebrile. Const General: cooperative, healthy appearing, comfortable and no acute distress Orientation/consciousness: patient oriented x3 Limitations: no limitations HENMT Head: Yes normal to inspection, Yes No palpable skull fracture present, Yes normocephalic and Yes atraumatic Eyes General: appearance normal, both eyes and all related structures Pupils: Equal, round and reactive pupils present Neck Neck: Yes normal visual inspection and Yes no lymphadenopathy Resp Effort & Inspection: normal respiratory effort and able to speak in complete sentences Auscultation: clear to auscultation bilaterally Cardio Rate: regular rate Rhythm: regular rhythm GI Other: Obese abdomen, soft, nondistended, nontender to palpation, no rebound tenderness or guarding. No peritoneal signs. Normoactive bowel sounds x4. Inspection: Yes normal to inspection Other: Sensitive exam performed with Sulma MARINA in room to librarian assistant. External genitalia WNL. Uncircumcised penis without noted lesions or discharge/blood from urethral meatus. Bilateral testicles with normal lie. No noted erythema or swelling. nontender to palpation. no warmth. no palpable masses. Perineum WNL. General: Yes no CVA tenderness Back/Spine/Pelvis Back: no CVA tenderness Skin General skin exam: no rashes or lesions noted Neuro General: patient oriented x3 Cranial nerves: Yes Equal, round and reactive pupils present Gait exam (Neuro): Normal gait present Motor exam (neuro): 5/5 motor strength present throughout and Pronator motor function not present Extrem General: Yes normal to inspection Course Course Course Narrative: 1550-- CBC showing leukocytosis to 14 without left shift. Chronic normocytic anemia. H&H 11.8/35.2. Kidney function appears to be around patient's baseline secondary to horseshoe kidney. BUN 35, creatinine 2.51. Urine is positive for infection. Will give dose of Ceftin and Pyridium. bladder scan pending. > vitals are stable. i do not have concern for sepsis at this time. 1621-- Prevoid bladder scan 133. Postvoid residual 1. No concern for urinary retention. Patient given a dose of Ceftin and Pyridium in the ED today. He has been treated with 1 L of IV fluids. He is alert and oriented. I do not have concern for sepsis or urosepsis at this time. Will treat for urinary tract infection. Ceftin sent to pharmacy for treatment. Patient and his son are agreeable with this. Patient has remained stable throughout ED visit today. Discussed worrisome signs and symptoms and when to return to the ED. All questions answered at this time. Patient is agreeable with disposition and stable for discharge. Medical Decision Making Medical Decision Making [facility] Narrative: 73 year old australian speaking male with pmhx significant for DM, gout, OA, BPH, HTN, and horseshoe kidney presents to the ED today for evaluation of dysuria, hematuria, and urinary hesitancy upon waking this morning. Patient hypertensive to 150s over 80s. There was a systolic blood pressure noted in the 200s however repeat was WNL. He reports taking his blood pressure medications this morning and does not endorse chest pain, shortness of breath, headache or dizziness. On sensitive exam, external genitalia WNL. Uncircumcised penis without noted lesions or discharge/blood from urethral meatus. Bilateral testicles with normal lie. No noted erythema or swelling. nontender to palpation. no warmth. no palpable masses. Perineum WNL. Obese abdomen, soft, nondistended, nontender to palpation, no rebound tenderness or guarding. No CVAT bilaterally. Differential diagnosis include UTI. Unlikely STD, pyelonephritis, renal colic, nephrolithiasis. No concern for sepsis/ urosepsis. Unlikely for fourniers gangrene. Plan for basic labs, UA. Differential Diagnosis Differential Diagnoses: The differential diagnosis associated with the presentation includes as above Admission/Observation Not indicated. Lab Data [facility] Lab Attestation statement: I reviewed the patient's lab results. as above. 01/22/24 09:15 01/22/24 09:15 Labs: Lab Results 01/22/24 01/22/24 Range/Units 09:11 09:15 WBC 14.0 H (4.8-10.8) X10*3/uL RBC 3.80 L (4.60-5.80) X10*6/uL Hgb 11.8 L (14.0-18.0) g/dl Hct 35.2 L (42.0-52.0) % MCV 92.6 (80.0-98.0) fL MCH 31.1 (27.0-33.0) pg MCHC 33.5 (31.0-36.0) g/dl RDW 11.9 (11.0-16.0) % Plt Count 279 D (160-400) X10*3/uL MPV 9.8 (9.4-12.4) fL Immature Gran % (Auto) 0.4 (0.0-0.4) % Neut % (Auto) 76.6 H (45-73) % Lymph % (Auto) 13.2 L (20-40) % Powell % (Auto) 8.1 (2-11) % Eos % (Auto) 1.1 (0-4) % Baso % (Auto) 0.6 (0-2) % Lymph # (Auto) 1.9 (1.2-4.9) X10*3/uL Powell # (Auto) 1.1 (0.1-1.2) X10*3/uL Eos # (Auto) 0.2 (0.0-0.4) X10*3/uL Baso # (Auto) 0.1 (0.0-0.2) X10*3/uL Abs Immat Gran (auto) 0.05 H (0.00-0.03) X10*3/uL Absolute Neuts (auto) 10.8 H (2.0-8.3) x10*3/uL Absolute Nucleated RBC 0.000 (0.0-0.012) X10*3/uL Nucleated RBC % (auto) 0.0 (0.0-0.2) /100WBC Sodium 139 (135-145) mmol/L Potassium 5.0 (3.3-5.1) mmol/L Chloride 108 (96-108) mmol/L Carbon Dioxide 23 (22-29) mmol/L Anion Gap 13 (12-20) BUN 35 H (9-16) mg/dL Creatinine 2.51 H (0.5-1.4) mg/dL Estim Creat Clear Calc 30.3 Estimated GFR 25 Random Glucose 151 H (60-115) mg/dL Calcium 9.5 (8.4-10.2) mg/dL Total Bilirubin 0.9 (0.0-1.0) mg/dL AST 23 (5-37) U/L ALT 15 (0-40) U/L Alkaline Phosphatase 101 (39-117) U/L Total Protein 8.0 (6.5-8.0) g/dL Albumin 4.0 (3.5-5.0) g/dL Urine Color Dark Yellow Urine Appearance Turbid Urine pH 6.5 (5.0-9.0) Ur Specific [place] 1.020 (1.005-1.025) Urine Protein 300 (3+) H (Neg-Trace) mg/dL Urine Glucose (UA) Negative (Negative) mg/dL Urine Ketones Negative (Negative) mg/dL Urine Blood Large (3+) H (Negative) Urine Nitrite Positive H (Negative) Ur Leukocyte Esterase Large (3+) H (Negative) Urine RBC >20 H (0-2) /HPF Urine WBC >50 H (0-5) /HPF Ur Squamous Epith Cells 0-2 (0-2) /HPF Urine Bacteria 2+ (None Seen) Hyaline Casts 3-5 (0-2) /LPF Independent Historian Clinical information obtained from an independent historian. History obtained from or confirmed by: Other (son) External Record Review External record reviewed: Inpatient record, Office record and Outpatient record Prescription Management I considered prescription management with: Pain Medication (Pyridium) and Antibiotic (Ceftin) Chronic Conditions Patient?s care impacted by: Diabetes, Hypertension and Other (BPH) Social Determinants Patient?s care significantly limited by Social Determinants of Health including: Other Social Determinant of Health Critical Care Time Critical Care Time Critical Care Time: No Discharge Plan Discharge Clinical Impression: Acute UTI Patient Disposition: Home, Self-Care Instructions: Urinary Tract Infection in Men (ED), Urinary Tract Infection in Older Adults (ED) Additional Instructions: Your urine today is positive for infection. Ceftin is an antibiotic that has been sent to your pharmacy. Take this as prescribed and do not miss any doses. You must complete the entire course of antibiotics. If you do not, there is a risk of the infection coming back or worsening. Pyridium is an analgesic that can relieve the pain, burning, and discomfort caused by infection or irritation of the urinary tract. It is not an antibiotic and will not cure the infection itself. This has been sent to your pharmacy. Take this as needed for discomfort. Pyridium can cause your urine to turn a reddish orange color.? Follow up with your primary care provider as needed. You have also been provided with a urologist to follow up with. Call them to make an appointment. They will not call you. If you develop a fever or new/ worsening symptoms call 911 or come back to the ER for further evaluation. Prescriptions: New cefuroxime axetil 500 mg tablet 500 mg PO BID 7 Days Qty: 14 0RF phenazopyridine [Pyridium] 100 mg tablet 100 mg PO TID PRN (Reason: pain (scale score 4-6)) Qty: 6 0RF No Action naproxen 500 mg tablet 500 mg PO BID 7 Days Qty: 14 0RF omeprazole 40 mg capsule,delayed release(DR/EC) 40 mg PO DAILY Qty: 7 0RF prednisone 20 mg tablet 40 mg PO DAILY 5 Days Qty: 10 0RF amitriptyline 25 mg tablet 25 mg PO BEDTIME metoprolol succinate 100 mg tablet extended release 24 hr 100 mg PO DAILY glipizide 10 mg tablet 10 mg PO BID multivitamin with folic acid [Daily-Maria Elena (with folic acid)] 400 mcg tablet 1 tab PO ONCE esomeprazole magnesium 40 mg capsule,delayed release(DR/EC) 40 mg PO DAILY melatonin 10 mg capsule 10 mg PO BEDTIME amlodipine 10 mg tablet 10 mg PO DAILY Referrals: [facility] [Provider Group] Print Language: Peruvian
[2024-01-22 15:42] VITALS: BP 158/80; PULSE 61; RESP 16; TEMP 36.4; O2SAT 100
[2024-01-22 16:00] VITALS: BP 146/83; PULSE 58; RESP 18; TEMP 36.8; O2SAT 100
[2024-01-22] MEDS: Phenazopyridine HCL 200 MG TABLET PO (16:23)
[2024-01-22] MEDS: 0.9 % Sodium Chloride 1,000 ML 999 ML IV (16:23)
[2024-01-22] MEDS: Acetaminophen 325 MG TABLET 975 MG PO (16:23)
--- NOTE | 2024-01-22 16:24 | PC.NURSE ---
20gIV placed in the left AC - IVF/medication administered per provider order. pt resting comfortably in no apparent distress. no sob/wob noted. respirations even/unlabored. plan of care ongoing. call montejo placed within reach.
[2024-01-22 17:44] VITALS: BP 146/83; PULSE 58; RESP 18; TEMP 36.8; O2SAT 100
[2024-01-22 18:03] LABS: CT PCR NOT DETECTED (Not Detect.); NG PCR NOT DETECTED (Not Detect.)
== END 2024-01-22 17:55 | disposition home or self-care (01) ==
PROVIDERS: Physician Assistant Medical; Emergency Provider Emergency Medicine
DX: N39.0 Urinary tract infection, site not specified (principal); R31.9 Hematuria, unspecified; R30.0 Dysuria; R39.11 Hesitancy of micturition; I10 Essential (primary) hypertension; M10.9 Gout, unspecified; M25.562 Pain in left knee; M17.0 Bilateral primary osteoarthritis of knee; I11.0 Hypertensive heart disease with heart failure; D64.9 Anemia, unspecified; Z79.899 Other long term (current) drug therapy
CPT/HCPCS: 36415; 80053; 81001; 85025; 87086; 87491; 87591; 96360; 99284

== ENCOUNTER 2024-04-17 10:32 | Emergency (ER) | payer OTHER, SELFPAY ==
--- NOTE | ~2024-04-17 | XR_ITS ---
EXAMINATION: XR CHEST CLINICAL INFORMATION: Cough. Question pneumonia. COMPARISON: CT chest dated 10/13/2023. TECHNIQUE: Frontal view of the chest was obtained. FINDINGS: No airspace consolidation. No pleural effusion or pneumothorax. Stable cardiomediastinal silhouette. Redemonstration of right axillary surgical clips. Right upper lobe calcified granuloma is unchanged. XR/XR chest 1V IMPRESSION: No acute cardiopulmonary findings. Electronically signed by: Tom Miller MD 04/17/2024 12:36 PM [facility] [place]
--- NOTE | ~2024-04-17 | XR_ITS ---
EXAMINATION: XR KNEE, RIGHT CLINICAL INFORMATION: Right knee pain. COMPARISON: Most recent right knee radiographs dated 04/04/2023. TECHNIQUE: Four views of the right knee. FINDINGS: Severe patellofemoral and moderate medial compartment joint space narrowing. Prominent tricompartmental marginal osteophytes. Bipartite patella. No acute fracture or dislocation. No concerning lytic or blastic osseous lesion. Patellofemoral subchondral cystic change. No joint effusion. XR/XR knee RT 4V IMPRESSION: Prominent tricompartmental osteoarthritis, most severe within the patellofemoral compartment. Findings have progressed when compared to the prior radiographs. Electronically signed by: Tom Miller MD 04/17/2024 12:36 PM [facility]
[2024-04-17 10:45] VITALS: BP 156/84; PULSE 88; RESP 22; TEMP 37.1; O2SAT 98; BMI 27.8
[2024-04-17 11:47] LABS: IDNOW Serial# 08D9AD1C; Strep A Nucleic Acid Negative (Negative)
[2024-04-17 12:08] VITALS: BP 125/68; PULSE 75; RESP 16; TEMP 36.7
--- NOTE | 2024-04-17 12:33 | ED.GENADULT ---
HPI - General Adult General Chief complaint: Upper Respiratory Symptoms Stated complaint: not feeling good Time Seen by Provider: 04/17/24 10:58 Source: patient Mode of arrival: ambulatory Limitations: no limitations History of Present Illness ED Provider: Conrad Rodriguez HPI narrative: 73-year-old man history of diabetes and hypertension and also gout presents to ED for 3 days of coughing with yellow phlegm with congestion and body aches. Patient states also chronic right knee pain exacerbation. Patient states his primary care provider and orthopedic surgeon recommend knee replacement but patient refused due to his age. Patient states knee swelling without any redness or stiffness. Patient states mild right knee pain Related Data Home Medications ?Medication ?Instructions ?Recorded ?Confirmed amitriptyline 25 mg tablet 25 mg PO BEDTIME 12/24/22 amlodipine 10 mg tablet 10 mg PO DAILY 12/24/22 esomeprazole magnesium 40 mg 40 mg PO DAILY 12/24/22 capsule,delayed release glipizide 10 mg tablet 10 mg PO BID 12/24/22 melatonin 10 mg capsule 10 mg PO BEDTIME 12/24/22 metoprolol succinate 100 mg 100 mg PO DAILY 12/24/22 tablet,extended release 24 hr multivitamin with folic acid 400 1 tab PO ONCE 12/24/22 mcg tablet (Daily-Maria Elena (with folic acid)) Previous Rx's ?Medication ?Instructions ?Recorded prednisone 20 mg tablet 40 mg (2 x 20 mg) PO DAILY 5 days 12/15/22 #10 tabs naproxen 500 mg tablet 500 mg PO BID 7 days #14 tabs 08/12/23 omeprazole 40 mg capsule,delayed 40 mg PO DAILY #7 caps 08/12/23 release cefuroxime axetil 500 mg tablet 500 mg PO BID 7 days #14 tabs 01/22/24 phenazopyridine 100 mg tablet 100 mg PO TID PRN pain (scale 01/22/24 (Pyridium) score 4-6) 6 doses #6 tabs naproxen 500 mg tablet 500 mg PO BID PRN pain 7 days #14 04/17/24 tabs prednisone 20 mg tablet 40 mg (2 x 20 mg) PO DAILY 5 days 04/17/24 #10 tabs Allergies Allergy/AdvReac Type Severity Reaction Status Date / Time No Known Allergies Allergy Verified 04/17/24 10:48 Review of Systems Review of Systems: Right knee pain, coughing, yellow phlegm, congestion, body aches Yes all other systems are reviewed and are negative [facility] Past Medical History Medical History Benign prostatic hyperplasia with lower urinary tract symptoms GERD (gastroesophageal reflux disease) Social History Social History Unable to assess alcohol history related to: Unknown Alcohol intake: never Advance Directives: No Advance Directives Information Provided: No Physical Exam ED Vital Signs: Vital Signs - 24 hr 04/17/24 10:45 04/17/24 12:08 04/17/24 14:19 Temperature 98.7 F 98.1 F 98.1 F Pulse Rate 88 75 75 Respiratory Rate 22 H 16 16 Blood Pressure 156/84 H 125/68 125/68 Pulse Oximetry 98 Oxygen Delivery Method Room Air Room Air Room Air BMI result Body Mass Index 27.8 Const General: cooperative, healthy appearing, comfortable, no acute distress, well developed, alert, awake and Physically active Orientation/consciousness: patient oriented x3 HENSC Head: Yes normal to inspection, Yes No palpable skull fracture present, Yes normocephalic and Yes atraumatic Throat: Yes posterior oropharynx normal, Yes tonsils normal and Yes uvula midline Eyes General: appearance normal, both eyes and all related structures Neck Neck: Yes normal visual inspection, Yes full ROM, Yes no lymphadenopathy, Yes no meningeal signs, Yes trachea midline, Yes supple, No anterior neck swelling and No tender Chest Chest palpation & inspection: normal inspection of the chest and normal palpation of entire chest wall Resp Effort & Inspection: normal respiratory effort and able to speak in complete sentences Auscultation: clear to auscultation bilaterally Cardio Jugular venous distension: no JVD Heart sounds: S1 normal heart sound present and S2 normal heart sound present GI Inspection: Yes normal to inspection Palpation (GI): Soft to palpation, not firm, nontender, no guarding and not rigid General: Yes no CVA tenderness Back/Spine/Pelvis Back: no CVA tenderness and No back tenderness Skin General skin exam: no rashes or lesions noted, elasticity normal and turgor normal Neuro General: patient oriented x3, gait normal, tone normal, moves all extremities, Normal light touch and pain sensation, no meningeal signs, no focal motor deficits, CN's II-XI intact bilaterally and normal sensation to monofilament Extrem General: Yes normal to inspection, Yes full ROM and Yes capillary refill normal Knee images: 1. Positive for swelling without any erythema, warmth, or stiffness. Patient has complete range of motion of knee. Positive for mild tenderness on palpation. Patient states right knee swelling is chronic and states his medical providers recommend knee replacement but his refused. Rest of extremity normal. Motor/neuro/vascular exam intact. Negative for calf pain or leg swelling. Psych Appearance: grossly normal, well kempt and not disheveled Medical Decision Making Medical Decision Making MDM Narrative: 73-year-old male presents to the ED for URI symptoms and right knee pain. Presently patient is stable. Not suspecting septic joint. Not suspecting DVT, compartment syndrome, arterial occlusion, or cellulitis. Chest x-ray knee x-ray swabs pending. 1:57pm. Chest x-ray is negative pneumonia. Knee x-ray negative for effusion but just shows worsening arthritis. Patient informed he may need to have another discussion with primary care provider and orthopedic surgeon in regards to possibly going through with the knee replacement surgery. Not suspecting septic joint, DVT, gout exacerbation, arterial occlusion, compartment syndrome, dislocation, fracture, osteomyelitis, or necrotizing fasciitis. Not suspecting myocardial infarction, CHF, PE, or respiratory failure. Differential Diagnosis Differential Diagnoses: The differential diagnosis associated with the presentation includes (Arthritis, pneumonia, COVID, RSV, influenza) Admission/Observation Consideration of admission/observation: Escalation of care including admission/observation considered Lab Data [facility] Lab Attestation statement: I reviewed the patient's lab results. Labs: Lab Results 04/17/24 Range/Units 11:25 Influenza Type A (PCR) NEGATIVE (Negative) Influenza Type B (PCR) NEGATIVE (Negative) RSV RNA Qual (PCR) NEGATIVE (Negative) SARS-CoV-2 RNA (RT-PCR) NEGATIVE (Negative) S. pyogenes GrpA AMAN Negative (Negative) Independent Interpretation I performed an independent interpretation of an: Plain X-Ray Interpretation: Patient: Phil Kebede MR#: [id number] : 1950 Acct:[id number] Age/Sex: 73 / M ADM Date: 04/17/24 Loc: HO.ED Attending Dr: Ordering Physician: Conrad Rodriguez Date of Service: 04/17/24 Procedure(s): XR chest 1V Accession Number(s): [id number] cc: Conrad Rodriguez; Uma Chung MD~ EXAMINATION: XR CHEST CLINICAL INFORMATION: Cough. Question pneumonia. COMPARISON: CT chest dated 10/13/2023. TECHNIQUE: Frontal view of the chest was obtained. FINDINGS: No airspace consolidation. No pleural effusion or pneumothorax. Stable cardiomediastinal silhouette. Redemonstration of right axillary surgical clips. Right upper lobe calcified granuloma is unchanged. XR/XR chest 1V IMPRESSION: No acute cardiopulmonary findings. Electronically signed by: Tom Miller MD 04/17/2024 12:36 PM EST RP XR/XR knee RT 4V IMPRESSION: Prominent tricompartmental osteoarthritis, most severe within the patellofemoral compartment. Findings have progressed when compared to the prior radiographs. Electronically signed by: Tom Miller MD 04/17/2024 12:36 PM EST RP Independent Historian Clinical information obtained from an independent historian. History obtained from or confirmed by: Other (Patient) External Record Review External record reviewed: Other (Prior visits) Prescription Management I considered prescription management with: Pain Medication Discharge Plan Discharge Clinical Impression: URI (upper respiratory infection), Arthralgia of knee, right Patient Disposition: Home, Self-Care Instructions: Upper Respiratory Infection (ED), Knee Pain (ED), Arthralgia (ED) Additional Instructions: Knee x-ray shows severe arthritis. You will have to follow up with your primary care provider and orthopedic surgeon to have another discussion regards to knee replacement. Chest x-ray negative pneumonia. You came back negative for COVID, RSV, influenza and strep. Return to the ED immediately for any chest pain, shortness of breath, coughing up blood, inability to ambulate, inability to bend the knee, knee redness, worsening swelling, calf pain, chest pain, shortness of breath, coughing up blood, red streaks, bluish black discoloration, or any other concerning symptoms. FINDINGS: No airspace consolidation. No pleural effusion or pneumothorax. Stable cardiomediastinal silhouette. Redemonstration of right axillary surgical clips. Right upper lobe calcified granuloma is unchanged. XR/XR chest 1V IMPRESSION: No acute cardiopulmonary findings. Electronically signed by: Tom Miller MD 04/17/2024 12:36 PM EST RP FINDINGS: Severe patellofemoral and moderate medial compartment joint space narrowing. Prominent tricompartmental marginal osteophytes. Bipartite patella. No acute fracture or dislocation. No concerning lytic or blastic osseous lesion. Patellofemoral subchondral cystic change. No joint effusion. XR/XR knee RT 4V IMPRESSION: Prominent tricompartmental osteoarthritis, most severe within the patellofemoral compartment. Findings have progressed when compared to the prior radiographs. Electronically signed by: Tom Miller MD 04/17/2024 12:36 PM EST RP Prescriptions: New prednisone 20 mg tablet 40 mg PO DAILY 5 Days Qty: 10 0RF naproxen 500 mg tablet 500 mg PO BID PRN (Reason: pain) 7 Days Qty: 14 0RF No Action naproxen 500 mg tablet 500 mg PO BID 7 Days Qty: 14 0RF omeprazole 40 mg capsule,delayed release(DR/EC) 40 mg PO DAILY Qty: 7 0RF cefuroxime axetil 500 mg tablet 500 mg PO BID 7 Days Qty: 14 0RF phenazopyridine [Pyridium] 100 mg tablet 100 mg PO TID PRN (Reason: pain (scale score 4-6)) Qty: 6 0RF prednisone 20 mg tablet 40 mg PO DAILY 5 Days Qty: 10 0RF amitriptyline 25 mg tablet 25 mg PO BEDTIME metoprolol succinate 100 mg tablet extended release 24 hr 100 mg PO DAILY glipizide 10 mg tablet 10 mg PO BID multivitamin with folic acid [Daily-Maria Elena (with folic acid)] 400 mcg tablet 1 tab PO ONCE esomeprazole magnesium 40 mg capsule,delayed release(DR/EC) 40 mg PO DAILY melatonin 10 mg capsule 10 mg PO BEDTIME amlodipine 10 mg tablet 10 mg PO DAILY Referrals: [facility] [place] [facility] [Provider Group] (Worsening right knee arthritis) Interventions: ED Discharge Assessment Last Done: 04/17/24 14:19 Discharge Date/Time: 04/17/24 14:19 Print Language: Kyrgyz
[2024-04-17 13:02] LABS: Influenza A PCR NEGATIVE (Negative); Influenza B PCR NEGATIVE (Negative); Resp Syncy Virus RNA Qual PCR NEGATIVE (Negative); SARS COV2 PCR INHOUSE NEGATIVE (Negative)
[2024-04-17 14:19] VITALS: BP 125/68; PULSE 75; RESP 16; TEMP 36.7
== END 2024-04-17 14:19 | disposition home or self-care (01) ==
PROVIDERS: Physician Assistant; Emergency Provider Student in an Organized Health Care Education/Training Program; PCP Internal Medicine
DX: J06.9 Acute upper respiratory infection, unspecified (principal); M25.561 Pain in right knee; R05.9 Cough, unspecified; I10 Essential (primary) hypertension; E11.9 Type 2 diabetes mellitus without complications; M10.9 Gout, unspecified; Z03.818 Encounter for observation for suspected exposure to other biological agents ruled out
CPT/HCPCS: 0241U; 71045; 73564; 87651; 99282; 99283

== ENCOUNTER 2024-08-01 10:13 | Emergency (ER) | payer OTHER, SELFPAY ==
--- NOTE | ~2024-08-01 | XR_ITS ---
CLINICAL HISTORY: swelling pain 3 view left ankle Comparison: None Findings: Bones intact. No dislocations. No significant loss of joint space. Small calcaneal osteophyte at the insertion of the Achilles tendon No ankle effusion. No radiopaque foreign body. Diffuse vascular calcification IMPRESSION: 1. No acute findings. This document has been electronically signed by: Russel Pike MD on 08/01/2024 12:14:28
--- NOTE | ~2024-08-01 | XR_ITS ---
CLINICAL HISTORY: pain swelling 3 view left foot Comparison: None Findings: Bones intact. No dislocations. Small calcaneal osteophytes noted. No ankle effusion. No radiopaque foreign body. Diffuse vascular calcification noted. IMPRESSION: 1. No acute findings. This document has been electronically signed by: Russel Pike MD on 08/01/2024 12:14:08
[2024-08-01 11:24] VITALS: BP 143/76; PULSE 91; RESP 18; TEMP 36.6; O2SAT 99; BMI 23.7
--- NOTE | 2024-08-01 11:26 | ED_ITS ---
HPI - Extremity Injury (Lower) General Chief Complaint: Extremity Injury, Lower Stated Complaint: r knee swelling, r toe pain Time Seen by Provider: 08/01/24 13:30 Source: patient, RN notes reviewed and old records reviewed Mode of arrival: ambulatory Limitations: no limitations History of Present Illness ED Provider: Chrissy HPI Narrative: Patient is a 74-year-old male with history of DM, osteoarthritis, GERD, gout presenting to the emergency department with 3 days of left foot pain, redness, and swelling. He denies any injury or trauma. Denies decreased ROM. States feels similar to prior gout flares. Related Data Home Medications ?Medication ?Instructions ?Recorded ?Confirmed amitriptyline 25 mg tablet 25 mg PO BEDTIME 12/24/22 amlodipine 10 mg tablet 10 mg PO DAILY 12/24/22 esomeprazole magnesium 40 mg 40 mg PO DAILY 12/24/22 capsule,delayed release glipizide 10 mg tablet 10 mg PO BID 12/24/22 melatonin 10 mg capsule 10 mg PO BEDTIME 12/24/22 metoprolol succinate 100 mg 100 mg PO DAILY 12/24/22 tablet,extended release 24 hr multivitamin with folic acid 400 1 tab PO ONCE 12/24/22 mcg tablet (Daily-Maria Elena (with folic acid)) Previous Rx's ?Medication ?Instructions ?Recorded prednisone 20 mg tablet 40 mg (2 x 20 mg) PO DAILY 5 days 12/15/22 #10 tabs naproxen 500 mg tablet 500 mg PO BID 7 days #14 tabs 08/12/23 omeprazole 40 mg capsule,delayed 40 mg PO DAILY #7 caps 08/12/23 release cefuroxime axetil 500 mg tablet 500 mg PO BID 7 days #14 tabs 01/22/24 phenazopyridine 100 mg tablet 100 mg PO TID PRN pain (scale 01/22/24 (Pyridium) score 4-6) 6 doses #6 tabs naproxen 500 mg tablet 500 mg PO BID PRN pain 7 days #14 04/17/24 tabs prednisone 20 mg tablet 40 mg (2 x 20 mg) PO DAILY 5 days 04/17/24 #10 tabs naproxen 500 mg tablet 500 mg PO BID #14 tabs 08/01/24 omeprazole 40 mg capsule,delayed 40 mg PO DAILY #7 caps 08/01/24 release prednisone 20 mg tablet 20 mg PO DAILY #7 tabs 08/01/24 Allergies Allergy/AdvReac Type Severity Reaction Status Date / Time No Known Allergies Allergy Verified 08/01/24 11:26 Review of Systems 2 Review of Systems: As per HPI Yes all other systems are reviewed and are negative Constitutional: Constitutional: Reports as per HPI [facility] Past Medical History Medical History Benign prostatic hyperplasia with lower urinary tract symptoms GERD (gastroesophageal reflux disease) Social History Social History Unable to assess alcohol history related to: Unknown Alcohol intake: never Advance Directives: No Advance Directives Information Provided: No Physical Exam 2 Vital Signs: Vital Signs: Last Vital Signs Temp 97.8 F 08/01/24 11:24 Pulse 91 08/01/24 11:24 Resp 18 08/01/24 11:24 BP 143/76 H 08/01/24 11:24 Pulse Ox 99 08/01/24 11:24 O2 Del Method Room Air 08/01/24 11:24 BMI result Body Mass Index 23.7 Vital signs have been reviewed and appear to be correct. Blood pressure normal. Heart rate normal. Respiratory rate normal. Temperature normal. Oxygen saturation normal. Const: General: cooperative, healthy appearing and no acute distress O rientation/consciousness: oriented to person, oriented to place, oriented to time and patient oriented x3 Limitations: no limitations HEENT: Head: Yes normocephalic and Yes atraumatic Ears: external ears normal General nose exam: Normal external nose present Face and sinus: Yes face symmetric Mouth: oropharynx normal and moist mucous membranes Throat: Yes uvula midline Eyes: Pupils: Equal, round and reactive pupils present Neck: Neck: Yes normal visual inspection and Yes supple Resp: Effort & Inspection: normal respiratory effort and able to speak in complete sentences Auscultation: clear to auscultation bilaterally Cardio: Rate: regular rate Rhythm: regular rhythm Heart sounds: S1 normal heart sound present and S2 normal heart sound present GI: Palpation (GI): Soft to palpation and nontender Auscultation: n ormoactive bowel sounds : General: Yes no CVA tenderness Back/Spine/Pelvis: Back: no CVA tenderness Skin: General skin exam: elasticity normal and turgor normal Neuro: General: oriented to person, oriented to place, oriented to time, patient oriented x3, moves all extremities, no focal motor deficits and CN's II- XI intact bilaterally Cranial nerves: Yes Equal, round and reactive pupils present Cognition (Neuro): normal cognition Extrem: General: Yes full ROM, Yes no pedal edema and Yes no calf tenderness Left lower extremity: foot Details: tenderness Location: of the medial foot Location: distally (at 1st MTP joint), toes with normal ROM, warmth Location: of the dorsal foot, no edema and vascular exam Details: dorsalis pedis pulse present, posterior tibial pulse present and normal capillary refill; no abrasions, no lacerations and no puncture wound Psych: Mental Status: mental status grossly normal Affect: normal affect Thought process: Normal thought process present Course Course Course Narrative: This is a Rapid Medical Exam performed in triage by Audra Ferrer PA-C. Full HPI, ROS and PE to be performed by primary ED provider. 74-year-old male with a past medical history of gout, diabetes, arthritis, GERD presenting to the ED c/o atraumatic left foot/ankle pain and swelling x3 days. States pain preventing him from sleeping. Denies known injury, trauma or fall PE: + left foot/ankle with appreciable swelling. Tender to palpation. Neurovascularly intact Plan: Labs, x-ray Medical Decision Making Medical Decision Making MDM Narrative: Patient is a 74-year-old male with history of DM, osteoarthritis, GERD, gout presenting to the emergency department with 3 days of left foot pain, redness, and swelling. On exam patient is awake, A+Ox3, VS WNL, afebrile, normal neurological exam without focal deficits, physical exam findings as above. Given reported symptoms and physical exam findings, initial differential includes but is not limited to gout flare, osteoarthritis. Physical exam findings not consistent with cellulitis. No open wounds or other lesions noted to foot. Labs notable for elevated ESR, CRP, uric acid, no leukocytosis. X-ray foot and ankle notable for no acute fracture. My interpretation is in agreement with the radiologist's interpretation. Physical exam findings consistent with acute gout flare. Will discharge patient on course of prednisone, naproxen, omeprazole. Follow up with PCP as needed. Return precautions discussed at bedside. Patient verbalized understanding of and agreement with plan. Differential Diagnosis Differential Diagnoses: The differential diagnosis associated with the presentation includes As per [facility] Lab Data [facility] Lab Attestation statement: I reviewed the patient's lab results. As per [facility] 08/01/24 11:45 08/01/24 11:44 Labs: Lab Results 08/01/24 08/01/24 Range/Units 11:44 11:45 WBC 9.5 (4.8-10.8) X10*3/uL RBC 3.32 L (4.60-5.80) X10*6/uL Hgb 9.9 L (14.0-18.0) g/dl Hct 29.8 L (42.0-52.0) % MCV 89.8 (80.0-98.0) fL MCH 29.8 (27.0-33.0) pg MCHC 33.2 (31.0-36.0) g/dl RDW 13.2 (11.0-16.0) % Plt Count 312 (160-400) X10*3/uL MPV Not Reportable Immature Gran % (Auto) 0.5 H (0.0-0.4) % Neut % (Auto) 66.6 (45-73) % Lymph % (Auto) 21.2 (20-40) % [place] % (Auto) 9.8 (2-11) % Eos % (Auto) 1.4 (0-4) % Baso % (Auto) 0.5 (0-2) % Lymph # (Auto) 2.0 (1.2-4.9) X10*3/uL [place] # (Auto) 0.9 (0.1-1.2) X10*3/uL Eos # (Auto) 0.1 (0.0-0.4) X10*3/uL Baso # (Auto) 0.1 (0.0-0.2) X10*3/uL Abs Immat Gran (auto) 0.05 H (0.00-0.03) X10*3/uL Absolute Neuts (auto) 6.3 (2.0-8.3) x10*3/uL Absolute Nucleated RBC 0.000 (0.0-0.012) X10*3/uL Nucleated RBC % (auto) 0.0 (0.0-0.2) /100WBC Smear Tech's Comments VERIFIED ESR 74 H (0-15) MM/HR Sodium 142 (135-145) mmol/L Potassium 4.3 (3.3-5.1) mmol/L Chloride 111 H (96-108) mmol/L Carbon Dioxide 21 L (22-29) mmol/L Anion Gap 14 (12-20) BUN 28 H (9-16) mg/dL Creatinine 2.29 H (0.5-1.4) mg/dL Estim Creat Clear Calc 30.1 Estimated GFR 28 Random Glucose 154 H (60-115) mg/dL Uric Acid 7.8 H (3.4-7.0) mg/dL Calcium 8.5 D (8.4-10.2) mg/dL C-Reactive Protein 7.86 H (< or = 0.50) mg/dL Independent Interpretation I performed an independent interpretation of an: Plain X-Ray Interpretation: No acute fracture left foot or ankle Radiology Impression Discussion of test interpretation with radiology: I have reviewed the radiologist's reading. Radiologist Impression: view left ankle Comparison: None Findings: Bones intact. No dislocations. No significant loss of joint space. Small calcaneal osteophyte at the insertion of the Achilles tendon No ankle effusion. No radiopaque foreign body. Diffuse vascular calcification IMPRESSION: 1. No acute findings. 3 view left foot Comparison: None Findings: Bones intact. No dislocations. Small calcaneal osteophytes noted. No ankle effusion. No radiopaque foreign body. Diffuse vascular calcification noted. IMPRESSION: 1. No acute findings. External Record Review External record reviewed: Inpatient record, Office record and Outpatient record Prescription Management I considered prescription management with: Pain Medication and Other Discharge Plan Discharge Clinical Impression: Gout flare Patient Disposition: Home, Self-Care Instructions: Low Purine Diet (ED), Gout (ED), Swollen Ankle Joint (ED) Additional Instructions: You were evaluated in the emergency department today for left foot and ankle pain. This is likely due to a gout flare. You are being treated with a course of prednisone which is a steroid to decrease inflammation as well as naproxen. You are also being prescribed omeprazole to take while you are on the prednisone and naproxen. Follow up with your primary care provider this week. Return to the emergency department if you develop new or concerning symptoms. Prescriptions: New prednisone 20 mg tablet 20 mg PO DAILY Qty: 7 0RF naproxen 500 mg tablet 500 mg PO BID Qty: 14 0RF omeprazole 40 mg capsule,delayed release(DR/EC) 40 mg PO DAILY Qty: 7 0RF No Action naproxen 500 mg tablet 500 mg PO BID 7 Days Qty: 14 0RF omeprazole 40 mg capsule,delayed release(DR/EC) 40 mg PO DAILY Qty: 7 0RF cefuroxime axetil 500 mg tablet 500 mg PO BID 7 Days Qty: 14 0RF phenazopyridine [Pyridium] 100 mg tablet 100 mg PO TID PRN (Reason: pain (scale score 4-6)) Qty: 6 0RF prednisone 20 mg tablet 40 mg PO DAILY 5 Days Qty: 10 0RF naproxen 500 mg tablet 500 mg PO BID PRN (Reason: pain) 7 Days Qty: 14 0RF prednisone 20 mg tablet 40 mg PO DAILY 5 Days Qty: 10 0RF amitriptyline 25 mg tablet 25 mg PO BEDTIME metoprolol succinate 100 mg tablet extended release 24 hr 100 mg PO DAILY glipizide 10 mg tablet 10 mg PO BID multivitamin with folic acid [Daily-Maria Elena (with folic acid)] 400 mcg tablet 1 tab PO ONCE esomeprazole magnesium 40 mg capsule,delayed release(DR/EC) 40 mg PO DAILY melatonin 10 mg capsule 10 mg PO BEDTIME amlodipine 10 mg tablet 10 mg PO DAILY Print Language: Occitan
[2024-08-01 12:08] LABS: Basophils Absolute Auto 0.1 X10*3/uL (0.0-0.2); Basophils Percent Auto 0.5 % (0-2); Eosinophils Absolute Auto 0.1 X10*3/uL (0.0-0.4); Eosinophils Percent Auto 1.4 % (0-4); Hematocrit 29.8 % (42.0-52.0); Hemoglobin 9.9 g/dl (14.0-18.0); Imm Gran Abs Auto 0.05 X10*3/uL (0.00-0.03); Imm Gran Pct Auto 0.5 % (0.0-0.4); Lymphocytes Percent Auto 21.2 % (20-40); MANUAL DIFF FLAG SCAN; Mean Corpuscular HGB Conc 33.2 g/dl (31.0-36.0); Mean Corpuscular Hemoglobin 29.8 pg (27.0-33.0); Mean Corpuscular Volume 89.8 fL (80.0-98.0); Monocytes Absolute Auto 0.9 X10*3/uL (0.1-1.2); Monocytes Percent Auto 9.8 % (2-11); Neutrophils Absolute Auto 6.3 x10*3/uL (2.0-8.3); Neutrophils Percent Auto 66.6 % (45-73); PLT CLUMP 1; Red Blood Count 3.32 X10*6/uL (4.60-5.80); Red Cell Distribution Width 13.2 % (11.0-16.0); SCAN SMEAR FLAG 1
[2024-08-01 12:11] LABS: Anion Gap 14 (12-20); Blood Urea Nitrogen 28 mg/dL (9-16); C Reactive Protein 7.86 mg/dL (< or = 0.50); Calcium 8.5 mg/dL (8.4-10.2); Carbon Dioxide 21 mmol/L (22-29); Chloride 111 mmol/L (96-108); Creatinine Clr Calc Pharmacy 30.1; Estimated Glomerular Filt Rate 28; Glucose Random 154 mg/dL (60-115); Potassium 4.3 mmol/L (3.3-5.1); Sodium 142 mmol/L (135-145); Uric Acid 7.8 mg/dL (3.4-7.0)
[2024-08-01 12:16] LABS: Platelet Count 312 X10*3/uL (160-400); SLIDE REVIEW VERIFIED; White Blood Count 9.5 X10*3/uL (4.8-10.8)
[2024-08-01 12:42] LABS: Erythrocyte Sedimentation Rate 74 MM/HR (0-15)
--- OUTSIDE RECORDS SUMMARY | 2024-08-01 13:39 | XMS_ITS | Encounter Summary ---
Author Organization [employer] Address [address] [facility] [address] [place] [address] Care Team Providers Care Bunch Breaker Machine Operator Name Role Phone Uma Chung MD Primary Care Provide r Encounter Details Date Type Department Care Team ([facility] st Contact Info) Description 07/16/[address] [facility] [address] [place], [place] [phone] Uma Chung MD [address] [place] [address] Social History Tobacco Use Types Packs/Day Years Used Date Smoking Tobacco: Never Passive Smoke Exposure: Never Smokeless Tobacco: Never Alcohol Use Standard Drinks/Week Comments Never 0 (1 standard drink = 0.6 oz pur e alcohol) Depression Answer Date Recorded Patient Health Questionnaire-9 Score 4 05/06/2024 Patient Health Questionnaire-9 Score 4 05/06/2024 Last PHQ-9: Questionnaire Data Not on file 1 07/07/2023 Housing Stability Answer Date Recorded What is your housing situation today? I have collin morel 06/02/[address] you li ve. Do you have problems with any of the following? None of the above 06/02/2024 Food Insecurity Answer Date Recorded Within the past 12 months, y ou worried that your food would run out before you got money to buy more: Never True 05/06/2024 Within the past 12 months,th e food you bought just didn't last and you didn't have enough money to get more: Never True 09/2023 Transportation Answer Date Recorded In the past 12 months, has l ack of transportation kept you from medical appts, meetings, work or from getting things needed for daily living? No 05/06/2024 Utilities Answer Date Recorded In the past 12 months, has t he electric, gas, oil or water company threatened to shut off services in your home? No 05/06/2024 Depression Answer Date Recorded Patient Health Questionnaire-2 Score 2 05/06/2024 Internet Access Answer Date Recorded Internet Access Q1 Yes 05/06/2024 Internet Access Q2 Not on file 05/06/2024 Sex and Gender Information Value Date Recorded Sex Assigned at Male 04/02/2022 10:24 AM EDT Legal Sex Male 10:24 AM EDT Gender Identity Male 04/02/2022 10:24 AM EDT Sexual Orientation Straight 04/02/2022 10 :24 AM EDT documented as of this encounter Plan of Treatment Upcoming Encounters Date Type Department Care Team (Late st Contact Info) Description 08/14/2024 2:[address] [facility] [address] [place] [address] Emi Harrell RN 11/12/2024 1:00 PM EDT Office Visit [facility] [address] [place] [address] Jimmie, Atiya, OD [address] [place] [address] documented as of this encounter Visit Diagnoses Not on filedocumented in this encounter Additional Health Concerns Assessment Noted Time PHQ-9 Depression Total Score: 4 05/06/20 24 9:16 AM EST documented as of this encounter Care Teams Bunch Breaker Machine Operator Relationship Specialty Start Date End Date Uma Chung MD [address] [place] [address] PCP - General Family Medicine 02/21/18 documented as of this encounter
--- OUTSIDE RECORDS SUMMARY | 2024-08-01 13:39 | XMS_ITS | Encounter Summary ---
Author Organization [employer] Address [address] [facility] 7[address] [place] [address] Care Team Providers Care Sales And Customer Relations Rep Name Role Phone Uma Chung MD Primary Care Provide r Reason for Visit * Reason Onset Date Comments Med Refill 01/10/2023 Encounter Details Date Type Department Care Team ([facility] st Contact Info) Description 01/10/2023 Telephone [facility] [address] [place] [address] Uma Chung MD [address] [place] [address] Med Refill Social History Tobacco Use Types Packs/Day Years Used Date Smoking Tobacco: Never Passive Smoke Exposure: Never Smokeless Tobacco: Never Alcohol Use Standard Drinks/Week Comments Never 0 (1 standard drink = 0.6 oz pur e alcohol) Depression Answer Date Recorded Patient Health Questionnaire-9 Score 0 12/12/2022 Depression Answer Date Recorded Patient Health Questionnaire-2 Score 0 12/12/2022 Sex and Gender Information Value Date Recorded Sex Assigned at Male 04/02/2022 10:24 AM EDT Legal Sex Male 10:24 AM EDT Gender Identity Male 04/02/2022 10:24 AM EDT Sexual Orientation Straight 04/02/2022 10 :24 AM EDT COVID-19 Exposure Response Date Recorded In the last 10 days, have yo u been in contact with someone who was confirmed or suspected to have Coronavirus/COVID-19? No / Unsure 12/12/2022 9:51 AM EDT documented as of this encounter Miscellaneous Notes * Telephone Encounter - Radha Regalado - 01/10/2023 8:17 AM EDT Tc from pt son requesting medication refill on oxyCODONE-acetaminophen (Percocet) 5-325 MG tablet documented in this encounter Plan of Treatment Upcoming Encounters Date Type Department Care Team (Late st Contact Info) Description 08/14/2024 2:00 PM EDT Telemedicine [facility] [address] [place] [address] Emi Harrell, LAINA 11/12/2024 1:00 PM EDT Office Visit [facility] [address] [place], [place] [phone] Atiya Samuel, OD [address] [place] [address] documented as of this encounter Visit Diagnoses Not on filedocumented in this encounter Additional Health Concerns Assessment Noted Time PHQ-9 Depression Total Score: 0 12/13/19 23 10:21 AM EDT documented as of this encounter Care Teams Sales And Customer Relations Rep Relationship Specialty Start Date End Date Uma Chung MD [address] [place] [address] PCP - General Family Medicine 02/21/18 documented as of this encounter
--- OUTSIDE RECORDS SUMMARY | 2024-08-01 13:39 | XMS_ITS | Encounter Summary ---
Author Organization [employer] Address [address] [facility] [address] [place] [address] Care Team Providers Care Health Care Coach Name Role Phone Uma Chung MD Primary Care Provide r Reason for Visit * Reason Comments Med Refill Encounter Details Date Type Department Care Team ([facility] st Contact Info) Description 07/22/2024 Refill [facility] [address] [place], [place] [phone] Uma Chung MD 230 [place], [place] [phone] Erectile dysfunction, unspecified erectile dysfunction type Social History Tobacco Use Types Packs/Day Years [...] Info) Description 08/14/2024 2:00 PM EDT Telemedicine [facility] [address] [place] [address] Emi Harrell, LAINA 11/12/2024 1:00 PM EDT Office Visit [facility] [address] [place], [place] [phone] Atiya Samuel, OD 230 [place] [address] documented as of this encounter Visit Diagnoses Diagnosis Erectile dysfunction, unspecified erectile dysfunction type documented in this encounter Additional Health Concerns Assessment Noted Time PHQ-9 Depression Total Score: 4 05/06/20 24 9:16 AM EST documented as of this encounter Care Teams Health Care Coach Relationship Specialty Start Date End Date Uma Chung MD [address] [place] [address] PCP - General Family Medicine 02/21/18 documented as of this encounter
--- OUTSIDE RECORDS SUMMARY | 2024-08-01 13:39 | XMS_ITS | Encounter Summary ---
Author Organization [employer] Address [address] [facility] [address] [place] [address] Care Team Providers Care Electrical Mechanic Name Role Phone Uma Chung MD Primary Care Provide r Reason for Visit * Reason Comments Med Refill Encounter Details Date Type Department Care Team ([facility] st Contact Info) Description 01/02/2024 Refill [facility] 230 [place], [place] [phone] Uma Chung MD [address] [place], [place] [phone] Osteoarthritis involving multiple joints on both sides of body Social History Tobacco Use Types Packs/Day Years Used Date Smoking Tobacco: Never Passive Smoke Exposure: Never Smokeless Tobacco: Never Alcohol Use Standard Drinks/Week Comments Never 0 (1 standard drink = 0.6 oz pur e alcohol) Depression Answer Date Recorded Patient Health Questionnaire-9 Score 0 12/12/2022 Housing Stability Answer Date Recorded What is your housing situation today? I have collin morel 03/21/[address] you li ve. Do you have problems with any of the following? None of the above 03/21/2023 Food Insecurity Answer Date Recorded Within the past 12 months, y ou worried that your food would run out before you got money to buy more: Never True 03/21/2023 Within the past 12 months,th e food you bought just didn't last and you didn't have enough money to get more: Never True Transportation Answer Date Recorded In the past 12 months, has l ack of transportation kept you from medical appts, meetings, work or from getting things needed for daily living? No 03/21/2023 Utilities Answer Date Recorded In the past 12 months, has t he electric, gas, oil or water company threatened to shut off services in your home? No 03/21/2023 Depression Answer Date Recorded Patient Health Questionnaire-2 [...] Info) Description 08/14/2024 2:00 PM EDT Telemedicine [facility] [address] [place] [address] Emi Harrell RN 11/12/2024 1:00 PM EDT Office Visit [facility] [address] [place] [address] Jimmie, Atiya, OD [address] [place] [address] documented as of this encounter Visit Diagnoses Diagnosis Osteoarthritis involving multiple joints on both sides of body documented in this encounter Additional Health Concerns Assessment Noted Time PHQ-9 Depression Total Score: 0 12/13/19 23 10:21 AM EDT documented as of this encounter Care Teams Electrical Mechanic Relationship Specialty Start Date End Date Uma Chung MD [address] [place] [address] PCP - General Family Medicine 02/21/18 documented as of this encounter
--- OUTSIDE RECORDS SUMMARY | 2024-08-01 13:39 | XMS_ITS | Encounter Summary ---
Author Organization [employer] Address [address] [facility] 7[address] [place] [address] Care Team Providers Care Rental Salesperson Name Role Phone Uma Chung MD Primary Care Provide r Encounter Details Date Type Department Care Team (Late st Contact Info) Description 08/01/2024 Orders Only GENERIC EXTERNAL DATA DEPARTMENT Provider, Generic External Data Social History Tobacco Use Types Packs/Day Years [...] Info) Description 08/14/2024 2:00 PM EDT Telemedicine [facility] 230 [place] [address] Emi Harrell RN 11/12/2024 1:00 PM EDT Office Visit [facility] [address] [place] [address] Atiya Samuel, OD 230 [place] [address] documented as of this encounter Procedures Procedure Name Priority Date/Time Associated Diagnosis Comments XR FOOT 3+ VIEWS LEFT Routine 08/01/2024 12:14 PM EST XR ANKLE 3+ VIEWS LEFT Routine 08/01/2024 12:14 PM EST SLIDE REVIEW Routine 08/01/2024 11:45 AM EST CBC WITH AUTO DIFFERENTIAL Routine 08/01/2024 11:45 AM EST SED RATE BY MODIFIED WESTERGREN Routine 08/01/2024 11:45 AM EST C-REACTIVE PROTEIN Routine 08/01/2024 11 :44 AM EST URIC ACID Routine 08/01/2024 11:44 AM EST BASIC METABOLIC PANEL Routine 08/01/2024 11:44 AM EST documented in this encounter Results * XR Ankle 3+ Views Left (08/01/2024 12:14 PM EST) Anatomical Region Laterality Modality Lower Extremities, Ankle Left Radiogr aphic Imaging 08/01/2024 12:1 4 PM EST Narrative 08/01/2024 12:15 PM EST ? [facility] ?[address] ?[place] [address] ?XRay Report ? Signed ? Patient: Delio,Rohit ?MR#: [id number] ?? 87 ? : 1950 ?Acct:[id number] ? Age/Sex: 74 / M ?ADM Date: 08/01/24 ? Loc: HO.ED ? Attending Dr: ? Ordering Physician: Audra Ferrer ?? Date of Service: 08/01/24 ?? Procedure(s): XR ankle LT min 3V ?? Accession Number(s): [id number] ? cc: Uma Chung MD; Audra Ferrer ? CLINICAL HISTORY: swelling pain ? 3 view left ankle ? Comparison: None ? Findings: ?? Bones intact. No dislocations. ?? No significant loss of joint space. Small calcaneal osteophyte at the ?? insertion of the Achilles tendon ?? No ankle effusion. ?? No radiopaque foreign body. Diffuse vascular calcification ? IMPRESSION: ?? 1. No acute findings. ? This document has been electronically signed by: Russel Pike MD on ?? 08/01/2024 12:14:28 ? Dictated By: ?Russel Pike MD ? Signed By: ?<Electronically signed by Russel Pike MD in OV> ? 08/01/24 1215 ? DD/ 1214 ? TD/TT: 08/01/24 1214 ? Automotive Drivability Technician: ? Procedure Note Vero, Image - 08/01/[address] [address] XRay Report Signed Patient: Phil Tsai AMR#: [id number] [birth year] : 8Acct:[id number] Age/Sex: 74 / MADM Date: 08/01/24 Loc: HO.ED Attending Dr: Ordering Physician: Audra Ferrer Date of Service: 08/01/24 Procedure(s): XR ankle LT min 3V Accession Number(s): [id number] cc: Uma Chung MD; Audra Ferrer CLINICAL HISTORY: swelling pain 3 view left ankle Comparison: None Findings: Bones intact. No dislocations. No significant loss of joint space. Small calcaneal osteophyte at the insertion of the Achilles tendon No ankle effusion. No radiopaque foreign body. Diffuse vascular calcification IMPRESSION: 1. No acute findings. This document has been electronically signed by: Russel Pike MD on 08/01/2024 12:14:28 Dictated By: Russel Pike MD Signed By: <Electronically signed by Russel Pike MD in OV> 08/01/24 1215 DD/ 1214 TD/TT: 08/01/24 1214 Automotive Drivability Technician: [facility] External Provider IMG XR PROCEDURES Edited Result - Final * XR Foot 3+ Views Left (08/01/2024 12:14 PM EST) Anatomical Region Laterality Modality Lower Extremities, Foot Left Radiogra phic Imaging 08/01/2024 12:1 4 PM EST Narrative 08/01/2024 12:15 PM EST ? [facility] ?[address] ?[place] [address] ?XRay Report ? Signed ? Patient: Delio,Rohit ?MR#: [id number] ?? 87 ? : 1950 ?Acct:[id number] ? Age/Sex: 74 / M ?ADM Date: 08/01/24 ? Loc: HO.ED ? Attending Dr: ? Ordering Physician: Audra Ferrer ?? Date of Service: 08/01/24 ?? Procedure(s): XR foot LT min 3V ?? Accession Number(s): [id number] ? cc: Uma Chung MD; Audra Ferrer ? CLINICAL HISTORY: pain swelling ? 3 view left foot ? Comparison: None ? Findings: ?? Bones intact. No dislocations. ?? Small calcaneal osteophytes noted. ?? No ankle effusion. ?? No radiopaque foreign body. Diffuse vascular calcification noted. ? IMPRESSION: ?? 1. No acute findings. ? This document has been electronically signed by: Russel Pike MD on ?? 08/01/2024 12:14:08 ? Dictated By: ?Russel Pike MD ? Signed By: ?<Electronically signed by Russel Pike MD in OV> ? 08/01/241214 ? DD/ 13 ? TD/TT: 08/01/24 1214 ? Automotive Drivability Technician: ? Procedure Note Donarater, Image - 08/01/[address] [address] XRay Report Signed Patient: Phil Tsai AMR#: [id number] [birth year] : 8Acct:[id number] Age/Sex: 74 / MADM Date: 08/01/24 Loc: HO.ED Attending Dr: Ordering Physician: Audra Ferrer Date of Service: 08/01/24 Procedure(s): XR foot LT min 3V Accession Number(s): [id number] cc: Uma Chung MD; Audra Ferrer CLINICAL HISTORY: pain swelling 3 view left foot Comparison: None Findings: Bones intact. No dislocations. Small calcaneal osteophytes noted. No ankle effusion. No radiopaque foreign body. Diffuse vascular calcification noted. IMPRESSION: 1. No acute findings. This document has been electronically signed by: Russel Pike MD on 08/01/2024 12:14:08 Dictated By: Russel Pike MD Signed By: <Electronically signed by Russel Pike MD in OV> 08/01/24 1215 DD/ 1214 TD/TT: 08/01/24 1214 Automotive Drivability Technician: [facility] External Provider IMG XR PROCEDURES Edited Result - Final * (ABNORMAL) Sed Rate by Modified Nkechi (08/01/2024 11:45 AM EST) Erythrocyte Sedimentation Rate 74(H) 0 - 15 MM/HR [facility] Comment:Patients with polycy themia and many hemoglobin abnormalitiesmay have depressed sed rates whereas patients with anemiamay have elevated sed rates. 08/01/2024 11:4 5 AM EST 08/01/2024 11:48 AM EST Generic External Data Provider LAB BLOOD ORDERAB LES Final Result Performing Organization Address [facility] Co de Phone Number [facility] [address] [place] [phone] * Slide Review (08/01/2024 11:45 AM EST) Slide Review VERIFIED [facility] 08/01/2024 11:4 5 AM EST 08/01/2024 11:48 AM EST [employer] External Data Provider LAB BLOOD ORDERAB LES Final Result Performing Organization Address [facility] Phone Number [facility] [address] [place] [phone] * (ABNORMAL) CBC auto differential (08/01/2024 11:45 AM EST) White Blood Count 9.5 4.8 - 10.8 X10*3/uL [facility] Red Blood Count 3.32(L) 4.60 - 5.80 X10*6/uL [facility] Hemoglobin 9.9(L) 14.0 - 18.0 g/dl [facility] Hematocrit 29.8(L) 42.0 - 52.0 % [facility] Mean Corpuscular Volume 89.8 80.0 - 98.0 fL [facility] Mean Corpuscular Hemoglobin 29.8 27.0 - 33.0 pg [facility] Mean Corpuscular HGB Conc 33.2 31.0 - 36.0 g/dl [facility] Red Cell Distribution Width 13.2 11.0 - 16.0 % [facility] Platelet Count 312 160 - 400 X10*3/uL [facility] Comment:Confirmed by smear. Neutrophils Percent Auto 66.6 45 - 73 % [facility] Imm Gran Pct Auto 0.5(H) 0.0 - 0.4 % [facility] Lymphocytes Percent Auto 21.2 20 - 40 % [facility] Monocytes Percent Auto 9.8 2 - 11 % [facility] Eosinophils Percent Auto 1.4 0 - 4 % [facility] Basophils Percent Auto 0.5 0 - 2 % [facility] NRBC Pct Auto 0.0 0.0 - 0.2 /100WBC [facility] Neutrophils Absolute Auto 6.3 2.0 - 8.3 x10*3/uL [facility] Imm Gran Abs Auto 0.05(H) 0.00 - 0.03 X10*3/uL [facility] Lymphocytes Absolute Auto 2.0 1.2 - 4.9 X10*3/uL [facility] Monocytes Absolute Auto 0.9 0.1 - 1.2 X10*3/uL [facility] Eosinophils Absolute Auto 0.1 0.0 - 0.4 X10*3/uL [facility] Basophils Absolute Auto 0.1 0.0 - 0.2 X10*3/uL [facility] NRBC Abs Auto 0.000 0.0 - 0.012 X10*3/uL [facility] 08/01/2024 11:4 5 AM EST 08/01/2024 11:48 AM EST us Generic External Data Provider LAB BLOOD ORDERAB LES Edited Result - Final [facility] [address] [place] [phone] * (ABNORMAL) C-reactive Protein (08/01/2024 11:44 AM EST) C Reactive Protein 7.86(H) < or = 0.50 mg/dL [facility] 08/01/2024 11:4 4 AM EST 08/01/2024 11:48 AM EST us Generic External Data Provider LAB BLOOD ORDERAB LES Final Result Performing Organization Address City/[facility]/ZIP Co de Phone Number [facility] [address] [place] [phone] * (ABNORMAL) Uric acid (08/01/2024 11:44 AM EST) Uric Acid 7.8(H) 3.4 - 7.0 mg/dL [facility] 08/01/2024 11:4 4 AM EST 08/01/2024 11:48 AM EST Generic External Data Provider LAB BLOOD ORDERAB LES Final Result Performing Organization Address [facility] Co de Phone Number [facility] [address] [place] [phone] * (ABNORMAL) Basic Metabolic Panel (08/01/2024 11:44 AM EST) Sodium 142 135 - 145 mmol/L [facility] Potassium 4.3 3.3 - 5.1 mmol/L [facility] Chloride 111(H) 96 - 108 mmol/L [facility] Carbon Dioxide 21(L) 22 - 29 mmol/L [facility] Anion Gap 14 12 - 20 [facility] Urea Nitrogen (BUN) 28(H) 9 - 16 mg/dL [facility] Creatinine, Serum 2.29(H) 0.5 - 1.4 mg/dL [facility] Creatinine Clr Calc Pharmacy 30.1 [facility] Comment:eGFR (calculated fro m the MDRD study equation) and eCrCl(calculated from the Cockcroft-Gault equation) are based ondifferent parameters and may not yield comparable results.If eCrCl result is absurd, please check patient'sheight/weight. Estimated Glomerular Filt Rate 28 [facility] Comment:Chronic Kidney Disea se: Estimated GFR < 60 mL/min/1.88l5Crjzle Kidney Disease: Estimated GFR < 15 mL/min/1.73m2 Glucose 154(H) 60 - 115 mg/dL [facility] Calcium 8.5 8.4 - 10.2 mg/dL [facility] 08/01/2024 11:4 4 AM EST 08/01/2024 11:48 AM EST us Generic External Data Provider LAB BLOOD ORDERAB LES Final Result Performing Organization Address City/State/[facility] Co de Phone Number [facility] [address] [place] [phone] documented in this encounter Visit Diagnoses Not on filedocumented in this encounter Additional Health Concerns Assessment Noted Time PHQ-9 Depression Total Score: 4 05/06/20 24 9:16 AM EST documented as of this encounter Care Teams Rental Salesperson Relationship Specialty Start Date End Date Uma Chung MD [address] [place] [address] PCP - General Family Medicine 02/21/18 documented as of this encounter
--- OUTSIDE RECORDS SUMMARY | 2024-08-01 13:39 | XMS_ITS | Encounter Summary ---
Author Organization [employer] Address [address] [facility] 7t [place] [address] Care Team Providers Care National Expansion Recruiter Name Role Phone Uma Chung MD Primary Care Provide r Reason for Visit * Reason Onset Date Comments Nurse Triage 07/31/2024 Encounter Details Date Type Department Care Team ([facility] st Contact Info) Description 07/31/2024 Telephone [facility] [address] [place] [address] Uma Chung MD [address] [place], [place] [phone] Nurse Triage Social History Tobacco Use Types Packs/Day Years [...] encounter Miscellaneous Notes * Telephone Encounter - An Otero RN - 07/31/2024 9:08 AM EST No certified court/medical interpreter needed as this freelance writer speaks Citizen Of [place]. Call to [facility] , spoke with son who is on HIPAA. Reports having some pain of left great big toe. Denies any swelling. Mild redness. No injury. Pain onset 4 days ago. Pt has not used any OTC Tylenol or motrin . Pt son advised of disposition,agrees to seek [facility] for exam as no sick on site availability on teams at time of call. Reviewed [facility] operating hours and that wait times vary. Reviewed home care advise, ER precautions and reasons to call back. Protocol Used: Toe Pain (Adult) Protocol-Based Disposition: See in Office or Video Visit within 3 Days Video visit offer not recorded Positive Triage Question: * Pain in the big toe joint * All higher-acuity triage questions were negative Care Advice Discussed: * Reassurance and Education - Toe Pain * Pain Medicines * Reasons To Call Back - Swelling, redness, or fever occur - You become worse * Telephone Encounter - Swapnil Claros - 07/31/2024 9:06 AM EST Tc from pt returning call regarding prior message. Contact pt Son at [phone] * Telephone Encounter - Alena Quiroga LPN - 07/31/2024 8:24 AM EST Triage call returned with BLS #[id number] Jessy. No answer at listed number. Message left to return call to [phone]. Call placed again with Jacky [phone]. Multiple attempts to reach patient with no answer at various listed numbers. Messages left to return call to [phone]. * Telephone Encounter - Olive Morrissey - 07/31/2024 8:04 AM EST Symptom: Pain - Severe Outcome: Schedule an urgent appointment (within 1 hour) or talk to a nurse or provider soon Reason: Caller denied all higher acuity questions The caller accepted this outcome. [phone] documented in this encounter Plan of Treatment Upcoming Encounters Date Type Department Care Team (Late st Contact Info) Description 08/14/2024 2:00 PM EDT Telemedicine [facility] [address] [place] [address] Emi Harrell RN 11/12/2024 1:00 PM EDT Office Visit [facility] [address] [place] [address] Atiya Samuel, OD [address] [place] [address] documented as of this encounter Visit Diagnoses Not on filedocumented in this encounter Additional Health Concerns Assessment Noted Time PHQ-9 Depression Total Score: 4 05/06/20 24 9:16 AM EST documented as of this encounter Care Teams National Expansion Recruiter Relationship Specialty Start Date End Date Uma Chung MD [address] [place] [address] PCP - General Family Medicine 02/21/18 documented as of this encounter
--- OUTSIDE RECORDS SUMMARY | 2024-08-01 13:39 | XMS_ITS | Encounter Summary ---
Author Organization [employer] Address [address] [facility] 7t [place] [address] Care Team Providers Care Cloth Roll Winder Name Role Phone Uma Chung MD Primary Care Provide r Encounter Details Date Type Department Care Team (Late st Contact Info) Description 02/06/2023 Orders Only [facility] [address] [place], [place] [phone] Lay Grimaldo LPN Social History Tobacco Use Types Packs/Day Years [...] Info) Description 08/14/2024 2:00 PM EDT Telemedicine [facility] [address] [place], [place] [phone] Emi Harrell RN 11/12/2024 1:00 PM EDT Office Visit [facility] [address] [place], [place] [phone] Atiya Samuel, OD [address] [place], [place] [phone] documented as of this encounter Visit Diagnoses Not on filedocumented in this encounter Additional Health Concerns Assessment Noted Time PHQ-9 Depression Total Score: 0 12/13/19 23 10:21 AM EDT documented as of this encounter Care Teams Cloth Roll Winder Relationship Specialty Start Date End Date Uma Chung MD [address] [place] [address] PCP - General Family Medicine 02/21/18 documented as of this encounter
--- OUTSIDE RECORDS SUMMARY | 2024-08-01 13:39 | XMS_ITS | Encounter Summary ---
Author Organization [employer] Address [address] [facility] 7t [place] [address] Care Team Providers Care Principal Systems Engineer Name Role Phone Uma Chung MD Primary Care Provide r Encounter Details Date Type Department Care Team (Late st Contact Info) Description 02/08/2023 Orders Only [facility] [address] [place] [phone] Provider, MD Nathan Social History Tobacco Use Types Packs/Day Years [...] Info) Description 08/14/2024 2:00 PM EDT Telemedicine [facility] [address] [place], [place] [phone] Emi Harrell RN 11/12/2024 1:00 PM EDT Office Visit [facility] [address] [place], [place] [phone] Atiya Samuel, OD [address] [place], [place] [phone] documented as of this encounter Procedures Procedure Name Priority Date/Time Associated Diagnosis Comments COLONOSCOPY Routine 08/07/2011 documented in this encounter Results * Colonoscopy (08/07/2011) us Historical Provider HEALTH MAINTENANCE Final Result documented in this encounter Visit Diagnoses Not on filedocumented in this encounter Additional Health Concerns Assessment Noted Time PHQ-9 Depression Total Score: 0 12/13/19 23 10:21 AM EDT documented as of this encounter Care Teams Principal Systems Engineer Relationship Specialty Start Date End Date Uma Chung MD 230 [place] [address] PCP - General Family Medicine 02/21/18 documented as of this encounter
--- OUTSIDE RECORDS SUMMARY | 2024-08-01 13:39 | XMS_ITS | Encounter Summary ---
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 Medications needing refill : oxyCODONE-acetaminophen (Percocet) 5-325 MG tablet To be sent to: [facility] - [place], [place] - [address] [place] [address] documented in this encounter Plan of Treatment Upcoming Encounters Date Type Department Care Team (Late st Contact Info) Description 08/14/2024 2:00 PM EDT Telemedicine [facility] [address] [place] [address] Emi Harrell RN 11/12/2024 1:00 PM EDT Office Visit [facility] [address] [place] [address] Atiya Samuel, DIANA [address] [place] [address] documented as of this encounter Visit Diagnoses Diagnosis Osteoarthritis involving multiple joints on both sides of body documented in this encounter Additional Health Concerns Assessment Noted Time PHQ-9 Depression Total Score: 4 05/06/20 24 9:16 AM EST documented as of this encounter Care Teams White Shoe Ragger Relationship Specialty Start Date End Date Uma Chung MD [address] [place] [address] PCP - General Family Medicine 02/21/18 documented as of this encounter
--- OUTSIDE RECORDS SUMMARY | 2024-08-01 13:39 | XMS_ITS | Encounter Summary ---
Author Organization [employer] Address 75 [facility] 7[address] [place] [address] Care Team Providers Care Training And Development Director Name Role Phone Uma Chung MD Primary Care Provide r Reason for Visit * Reason Comments Med Refill Encounter Details Date Type Department Care Team (Late Contact Info) Description 03/01/2023 Refill [facility] [address] [place], [place] [phone] Uma Chung MD [address] [place], [place] [phone] Other chronic pain Social History Tobacco Use Types Packs/Day Years [...] Encounters Date Type Department Care Team (Late Contact Info) Description 08/14/2024 2:00 PM EDT Telemedicine [facility] [address] [place] [address] Emi Harrell RN 11/12/2024 1:00 PM EDT Office Visit [facility] [address] [place], [place] [phone] Jimmie, Atiya, OD [address] [place], [place] [phone] documented as of this encounter Visit Diagnoses Diagnosis Other chronic pain documented in this encounter Additional Health Concerns Assessment Noted Time PHQ-9 Depression Total Score: 0 12/13/19 23 10:21 AM EDT documented as of this encounter Care Teams Training And Development Director Relationship Specialty Start Date End Date Uma Chung MD [address] [place], [place] [phone] PCP - General Family Medicine 02/21/18 documented as of this encounter
--- OUTSIDE RECORDS SUMMARY | 2024-08-01 13:39 | XMS_ITS | Encounter Summary ---
Author Organization [employer] Address 75 [facility] 7t [place] [address] Care Team Providers Care Film Replacement Orderer Name Role Phone Uma Chung MD Primary Care Provide r Reason for Visit * Reason Onset Date Comments Appointment Request 10/25/2022 Encounter Details Date Type Department Care Team ([facility] st Contact Info) Description 10/25/2022 Telephone [facility] [address] [place] [address] Uma Chung MD [address] [place], [place] [phone] Appointment Request Social History Tobacco Use Types Packs/Day Years Used Date Smoking Tobacco: Never Passive Smoke Exposure: Never Smokeless Tobacco: Never Alcohol Use Standard Drinks/Week Comments Never 0 (1 standard drink = 0.6 oz pur e alcohol) Sex and Gender Information Value Date Recorded [...] suspected to have Coronavirus/COVID-19? No / Unsure 10/11/2022 1:42 PM EDT documented as of this encounter Miscellaneous Notes * Telephone Encounter - Deep Hahn - 10/25/2022 3:54 PM EDT Tc from son requesting to r/s appt for 10/26/2022 of [facility] Please contact pt son at [phone] documented in this encounter Plan of Treatment Upcoming Encounters Date Type Department Care Team (Late st Contact Info) Description 08/14/2024 2:00 PM EDT Telemedicine [facility] [address] [place] [address] Emi Harrell RN 11/12/2024 1:00 PM EDT Office Visit [facility] [address] [place] [address] Atiya Samuel, OD [address] [place] [address] documented as of this encounter Visit Diagnoses Not on filedocumented in this encounter Care Teams Film Replacement Orderer Relationship Specialty Start Date End Date Uma Chung MD [address] [place] [address] PCP - General Family Medicine 02/21/18 documented as of this encounter
--- OUTSIDE RECORDS SUMMARY | 2024-08-01 13:39 | XMS_ITS | Encounter Summary ---
Author Organization [employer] Address 75 [facility] 7t [place] [address] Care Team Providers Care Wildland Fire Operations Specialist Name Role Phone Uam Chung MD Primary Care Provide r Reason for Visit * Reason Onset Date Comments Nurse Triage 01/14/2024 Encounter Details Date Type Department Care Team ([facility] st Contact Info) Description 01/14/2024 Telephone [facility] [address] [place] [address] Uma Chung MD 230 [place], [place] [phone] Nurse Triage Social History Tobacco Use Types [...] encounter Miscellaneous Notes * Telephone Encounter - Alena Quiroga LPN - 01/14/2024 9:17 AM EDT Contacted patient Bayron Villarreal Jr. Patient required revisit with Eye MD. Son has already contacted them and is awaiting a return call with appt. information. Team tasked to follow with appt request. Protocol Used: Information Only Call - No Triage (Adult) Protocol-Based Disposition: Home Care Positive Triage Question: * General information question, no triage required and triager able to answer question * All higher-acuity triage questions were negative * Telephone Encounter - Meg Castelan - 01/14/2024 8:34 AM EDT Symptom: Vision Loss or Change Outcome: Schedule an urgent appointment (within 1 hour) or talk to a nurse or provider soon Reason: Getting worse The caller accepted this outcome documented in this encounter Plan of Treatment Upcoming Encounters Date Type Department Care Team (Late st Contact Info) Description 08/14/2024 2:00 PM EDT Telemedicine [facility] [address] [place], [place] [phone] Emi Harrell RN 11/12/2024 1:00 PM EDT Office Visit [facility] [address] [place], [place] [phone] Atiya Samuel, OD [address] [place] [address] documented as of this encounter Visit Diagnoses Not on filedocumented in this encounter Additional Health Concerns Assessment Noted Time PHQ-9 Depression Total Score: 0 12/13/19 23 10:21 AM EDT documented as of this encounter Care Teams Wildland Fire Operations Specialist Relationship Specialty Start Date End Date Uma Chung MD [address] [place] [address] PCP - General Family Medicine 02/21/18 documented as of this encounter
--- OUTSIDE RECORDS SUMMARY | 2024-08-01 13:39 | XMS_ITS | Encounter Summary ---
Author Organization [employer] Address 75 [facility] 7t [place] [address] Care Team Providers Care Inspector Of Dredging Name Role Phone Uma Chung MD Primary Care Provide r Reason for Visit * Reason Onset Date Comments Med Refill 07/14/2024 Encounter Details Date Type Department Care Team (Late st Contact Info) Description 07/14/2024 Refill [facility] [address] [place], [place] [phone] Uma Chung MD [address] [place], [place] [phone] Erectile dysfunction, unspecified erectile dysfunction type Social [...] Telephone Encounter - Steven Lira - 07/14/2024 12:22 PM EST TC from pt requesting medication refill. Medications needing refill : sildenafil (Viagra) 100 MG tablet To be sent to: [facility] documented in this encounter Plan of Treatment Upcoming Encounters Date Type Department Care Team (Late st Contact Info) Description 08/14/2024 2:00 PM EDT Telemedicine [facility] [address] [place] [address] Emi Harrell RN 11/12/2024 1:00 PM EDT Office Visit [facility] [address] [place] [address] Atiya Samuel, OD [address] [place] [address] documented as of this encounter Visit Diagnoses Diagnosis Erectile dysfunction, unspecified erectile dysfunction type documented in this encounter Additional Health Concerns Assessment Noted Time PHQ-9 Depression Total Score: 4 05/06/20 24 9:16 AM EST documented as of this encounter Care Teams Inspector Of Dredging Relationship Specialty Start Date End Date Uma Chung MD [address] [place] [address] PCP - General Family Medicine 02/21/18 documented as of this encounter
--- OUTSIDE RECORDS SUMMARY | 2024-08-01 13:39 | XMS_ITS | Encounter Summary ---
Author Organization [employer] Address [address] 7t [place] [address] Care Team Providers Care Transformer Tester Name Role Phone Uma Chung MD Primary Care Provide r Encounter Details Date Type Department Care Team ([facility] st Contact Info) Description 03/21/2023 Orders Only [facility] [address] [place], [place] [phone] Lay Grimaldo LPN Social History Tobacco Use Types Packs/Day Years Used Date Smoking Tobacco: Never Passive Smoke Exposure: Never Smokeless Tobacco: Never Alcohol Use Standard Drinks/Week Comments Never 0 (1 standard drink = 0.6 oz pur e alcohol) Depression Answer Date Recorded Patient Health Questionnaire-9 Score 0 12/12/2022 Housing Stability Answer Date Recorded What is your housing situation today? I have collinen morel 03/21/[address] you [...] Info) Description 08/14/2024 2:00 PM EDT Telemedicine [facility] [address] [place] [address] Emi Harrell RN 11/12/2024 1:00 PM EDT Office Visit [facility] [address] [place], [place] [phone] Atiya Samuel, OD [address] [place] [address] documented as of this encounter Visit Diagnoses Not on filedocumented in this encounter Additional Health Concerns Assessment Noted Time PHQ-9 Depression Total Score: 0 12/13/19 23 10:21 AM EDT documented as of this encounter Care Teams Transformer Tester Relationship Specialty Start Date End Date Uma Chung MD [address] [place] [address] PCP - General Family Medicine 02/21/18 documented as of this encounter
--- OUTSIDE RECORDS SUMMARY | 2024-08-01 13:39 | XMS_ITS | Encounter Summary ---
Author Organization [employer] Address [address] [facility] 7t [place] [address] Care Team Providers Care Financial Examiner Name Role Phone Uma Chung MD Primary Care Provide r Reason for Visit * Reason Onset Date Comments Med Refill 03/15/2023 Encounter Details Date Type Department Care Team (Late st Contact Info) Description 03/15/2023 Refill [facility] [address] [place], [place] [phone] Uma Chung MD 230 [place], [place] [phone] Osteoarthritis involving multiple joints on both sides [...] housing situation today? I have collin morel 03/13/[address] you li ve. Do you have problems with any of the following? None of the above 03/13/2023 Food Insecurity Answer Date Recorded Within the past 12 months, y ou worried that your food would run out before you got money to buy more: Never True 03/13/2023 Within the past 12 months,th e food you bought just didn't last and you didn't have enough money to get more: Never True 04/2023 Transportation Answer Date Recorded In the past 12 months, has l ack of transportation kept you from medical appts, meetings, work or from getting things needed for daily living? No 03/13/2023 Utilities Answer Date Recorded In the past 12 months, has t he electric, gas, oil or water company threatened to shut off services in your home? No 03/13/2023 Depression Answer Date Recorded Patient Health Questionnaire-2 Score 0 12/12/2022 Sex and Gender Information Value Date Recorded Sex Assigned at Male 04/02/2022 10:24 AM EDT Legal Sex Male 10:24 AM EDT Gender Identity Male 04/02/2022 10:24 AM EDT Sexual Orientation Straight 04/02/2022 10 :24 AM EDT documented as of this encounter Miscellaneous Notes * Telephone Encounter - Emi Harrell RN - 03/15/2023 12:00 PM EDT TC to [facility] pharmacy, spoke with Ema, confirmed that Percocet from 03/13/23 was not dispensed.Requested RX be cancelled. * Telephone Encounter - Meg Castelan - 03/15/2023 11:34 AM EDT Tc from son requesting new script to be send to [facility], son stated [facility] has blue pills and pt wants white ones. documented in this encounter Plan of Treatment Upcoming Encounters Date Type Department Care Team (Late st Contact Info) Description 08/14/2024 2:00 PM EDT Telemedicine [facility] [address] [place] [address] Emi Harrell RN 11/12/2024 1:00 PM EDT Office Visit [facility] [address] [place] [place], [place] [phone] Atiya Samuel, OD [address] [place] [address] documented as of this encounter Visit Diagnoses Diagnosis Osteoarthritis involving multiple joints on both sides of body documented in this encounter Additional Health Concerns Assessment Noted Time PHQ-9 Depression Total Score: 0 07/12/20 23 10:21 AM EDT documented as of this encounter Care Teams Financial Examiner Relationship Specialty Start Date End Date Uma Chung MD [address] [place] [address] PCP - General Family Medicine 02/21/18 documented as of this encounter
--- OUTSIDE RECORDS SUMMARY | 2024-08-01 13:39 | XMS_ITS | Clinical Summary ---
Author Organization [facility] Address [address] [place] [phone] Phone Care Team Providers Care Skoog Operator Name Role Phone Uma Chung MD Primary Care Provide r Allergies No known active allergies Medications simvastatin (ZOCOR) 10 MG tablet Take 1 tablet by mouth 1 (one) time each day in the evening 7 Active metoprolol succinate XL (TOPROL-XL) 50 MG 24 hr tablet Take 1 tablet by mouth 1 (one) time each day 7 Active glipiZIDE (GLUCOTROL) 10 MG tablet Take 1 tablet by mouth 2 (two) times a day 7 Active diclofenac (Voltaren) 1 % gel Apply topically 4 (four) times a day 7 Active CAFFEINE CITRATE PO Take 1 tablet by mouth 1 (one) time each day Active omeprazole (PriLOSEC) [address] capsule Take 1 capsule by mouth 1 (one) time each day 7 Active Acetaminophen 325 MG capsule Take 2 capsules by mouth 3 (three) times a day Active cromolyn (OPTICROM) 4 % ophthalmic solution 1 drop by Other route 1 (one) time each day Active hydrOXYzine (ATARAX) 50 MG tablet Take 1 tablet by mouth 2 (two) times a day Active Melatonin 5 MG capsule Take by mouth at bed time Active oxyCODONE-aceta minophen (Percocet) 5-325 MG per tablet Take 1 tablet by mouth 4 (four) times a day Active amLODIPine (NORVASC) 10 MG tablet 1 Active clotrimazole (LOTRIMIN) 1 % cream APLIQUE AL DANYEL AFECTADA DOS VECES AL D A EN LA MA RAVI Y EN LA NOCHE 1 Active hydroCHLOROthia zide (HYDRODIURIL) 12.5 MG tablet 1 Active hydrocortisone 2.5 % cream APLIQUE AL DANYEL AFECTADA DOS VECES AL D A 1 Active Multiple Vitamin (Multivitamin) tablet Take 1 tablet by mouth 1 (one) time each day 0 Active Viagra 100 MG tablet TAKE 1 TABLET 1 HOUR BEFORE SEXUAL RELATIONS ONCE DAILY NEEDED. 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 Family History Medical History Relation Comments Diabetes Sibling 3 sisters, 1 bro ther Heart disease Sibling sister Hypertension Sibling brother Stroke Sibling sister Relation Status Comments Father Mother Sibling Social History Tobacco Use Types Packs/Day Years Used Date Smoking Tobacco: Never Smokeless Tobacco: Never Alcohol Use Standard Drinks/Week Comments No 0 (1 standard drink = 0.6 oz pur e alcohol) Sex and Gender Information Value Date Recorded Sex Assigned at Not on file Legal Sex Male 3:45 PM EST Gender Identity Not on file Sexual Orientation Not on file Last Filed Vital Signs Vital Sign Reading Time Taken Comments Blood Pressure 120/68 05/18/2021 1:38 PM EST Pulse 83 05/18/2021 1:38 PM EST Temperature - - Respiratory Rate - - Oxygen Saturation 98% 05/18/2021 1:38 PM EST Inhaled Oxygen Concentration - - Weight 97.8 kg (215 lb 9.6 oz) 05/18/2021 1:38 P M EST Height 180.3 cm (5' 11 ) 01/27/2018 12:00 PM EDT Body Mass Index 30.07 01/27/2018 12:00 PM EDT Plan of Treatment Health Maintenance Due Date Last Done Comments Pneumococcal Vaccine: 65+ Ye ars (1 of 2 - PCV) 1956 Diabetes: Hemoglobin A1C 07/04/2020 03/29/2020 Diabetes: Ophthalmology Exam 07/04/2020 Diabetes: Pedal Pulse Checked 07/04/2020 Diabetes: Sensory Foot Exam 07/04/2020 Diabetes: Visual Foot Exam 07/04/2020 Influenza Vaccine (#1) 2024 Hepatitis B Vaccine Aged Out No longe r eligible based on patient's age to complete this topic Procedures Procedure Name Priority Date/Time Associated Diagnosis Comments BLOOD PANEL (HC) Routine 03/29/2020 12:0 0 AM EDT from Last 3 Months or Most Recently Relevant to Health Maintenance Results * (ABNORMAL) Blood Panel (03/29/2020 12:00 AM EDT) Hemoglobin A1C 6.6(H) <5 % PVNMA 03/29/2020 us [facility] [id number] LICITED RESULTS Final Result PVNMA from Last 3 Months or Most Recently Relevant to Health Maintenance Insurance [facility] [place] [id number] [address] [place] [id number] Care Teams Skoog Operator Relationship Specialty Start Date End Date Uma Chung MD [address] [place] [address] [place] [id number] PCP - General 06/13/20
--- OUTSIDE RECORDS SUMMARY | 2024-08-01 13:40 | XMS_ITS | Data Portability ---
Author Organization [employer] [place] [employer] Address [address] [place] [phone] Care Team Providers Care Consulting Marine Engineer Name Role Phone ANGELES GONZALESLARA Primary Care Provider [facility] OTHER Assessment No assessment recorded. Plan of Treatment Reminders Order Date Submit Date Provider Last Modified By Organization Details Last Modified Time Details Appointments None record ed. Lab None record ed. Referral None record ed. Procedures None record ed. Surgeries None record ed. Imaging None record ed. Medication Orders None record ed. Patient TargetsNo targets recorded. Patient InstructionsNo instructions recorded. Reason for Referral None Reported. Medical Equipment None Reported. Allergies No known drug allergies Medications Name Sig Start Date Stop Date Status Note LastModified by Organization Details LastModified Time glipizide 10 mg tablet TAKE 1 TABLET BY MOUTH TWICE A DAY BEFORE MEALS active Not Available Not Available No t Available prednisone 20 mg tablet TOME DOS TABLETAS POR V A ORAL TODOS LOS D POR 5 D active Not Available Not Available N ot Available metoprolol succinate ER 100 mg tablet,exten ded release 24 hr TOME 1 TABLETA POR V A ORAL TODOS LOS D active Not Available Not Available No t Available simvastatin 10 mg tablet TAKE 1 TABLET BY MOUTH EVERY DAY AT BEDTIME active Not Available Not Available No t Available cromolyn 4 % eye drops PLACE 1 DROP IN THE AFFECTED EYE(S) ONCE DAILY NEEED active Not Available Not Available No t Available amlodipine 5 mg tablet TAKE 1 TABLET BY MOUTH EVERY DAY active Not Available Not Available No t Available omeprazole 40 mg capsule,robert yed release TOME NANETTE C PSULA TODOS LOS D active Not Available Not Available No t Available oxycodone-ac etaminophen 5 mg-325 mg tablet TAKE 1 TABLET BY MOUTH EVERY 6 HOURS NEEDED FOR SEVERE PAIN active Not Available Not Available Not Available famotidine 20 mg tablet TOME 1 TABLETA POR V A ORAL DOS VECES AL D A active Not Available Not Available No t Available prednisolone acetate 1 % eye drops,suspen talia INSTILL 1 DROP EN NATALIO DERECHO FOUR TIMES A DAY active Not Available Not Available No t Available phenazopyrid ine 100 mg tablet TOME NANETTE TABLETA POR V A ORAL LUIS VECES AL D A CUANDO SEA NECESARIO PARA EL DOLOR active Not Available Not Available No t Available esomeprazole magnesium 40 mg capsule,robert yed release TOME 1 C PSULA POR V A ORAL TODOS LOS D active Not Available Not Available No t Available Viagra 100 mg tablet TAKE 1 TABLET 1 HOUR BEFORE SEXUAL RELATIONS ONCE DAILY NEEDED. active Not Available Not Available N ot Available cefuroxime axetil 500 mg tablet TOME 1 TABLETA POR V A ORAL DOS VECES AL D A POR 7 D active Not Available Not Available No t Available naproxen 500 mg tablet TOME NANETTE TABLETA POR V A ORAL DOS VECES AL D A CUANDO SEA NECESARIO PARA EL DOLOR POR 7 D active Not Available Not Available No t Available hydrochlorot hiazide 12.5 mg tablet TOME 1 TABLETA POR V A ORAL TODOS LOS D EN LA MA RAVI active Not Available Not Available No t Available naloxone 4 mg/actuation nasal spray FOR SUSPECTED OPIOID OVERDOSE. SPRAY 0.1mL IN ONE NOSTRIL. REPEAT IN ALTERNATE NOSTRIL 2-3 MINUTES IF NEEDED. SEEK MEDICAL ATTENTION IMMEDIATELY EVEN IF PATIENT RESPONDS. active Not Available Not Available No t Available Daily-Maria Elena (with folic acid) 400 mcg tablet TOME 1 TABLETA POR V A ORAL TODOS LOS D active Not Available Not Available No t Available Vitals Date Recorded Respiratory rate Heart rate Body temperature Oxygen saturation Oxygen saturation in Arterial blood by Pulse oximetry Systolic blood pressure Diastolic blood pressure Systolic blood pressure Diastolic blood pressure Provider Name and Address Organization Details Last Updated DateTime 4 16 /min 64 /min 97.2 [degF] 99 % 99 % 170 mm[Hg] 82 mm[Hg] 161 mm[Hg] 81 mm[Hg] Not Available [facility] - production 4 14:38:29 Social History None recorded. Functional Status None recorded. Mental Status None recorded. Family History Nothing Reported. Medical History No medical history recorded. Past Encounters Encounter ID Performer Location Encounter Start Date Encounter Closed Date Diagnosis/Indication Diagnosis SNOMED-CT Code Diagnosis ICD10 Code Diagnosis Note [id number] Porter Bran MD Main - [facility] [address] [place] [address] 04/25/2024 14:33:24 04/27/2024 17:48:06 Acute exacerbation of chronic obstructive pulmonary disease 017896880 J44.1 As noted, we were called to see this patient regarding concerns of need for post-d/c check. Evaluation in the field was performed by my bankruptcy judge colleague, as noted above, I provided real-time direction and supervisio n for this visit. The evaluation revealed reassuring VS, high BG, high BP. Patient reported being d/c for PNA with abx but does not have abx, only prednisone . Was worried about not doing well and needing BP check. Notes from hospital reviewed and it appears there was no PNA dx, based on CXR and his not being given abx, but was given prednisone course, presumably for COPD. Lungs and rest of exam reassuring . Impression :Hiwot COPD exacerbati on now improving. Does not appear he had PNA. Exam reassuring . Suspect BP and BG are due to steroid, no interventi on at this time but mentioned he should talk with PCP about increasing regimen if does not return to normal after end of pred. Does not look infected so no role for abx here. Plan:[facility] Primary caredanielle visit this week to check in and tweak DM meds. Dispositio n: We discussed the diagnostic uncertaint y of home visits and the risk associated with this. In this case, the patient and I felt this to be an acceptable and reasonable amount of risk given the benefit of avoiding an ED visit. We discussed the need to seek care urgently/e mergently in the setting of any new or worsening serious symptoms, particular ly fever, dyspnea, chest pain. Health Concerns Section Related Observation LastModified by Organization Detai ls LastModified Time None Recorded Concern Status LastModified by Organization Details LastModified Time None Recorded Advance Directives Directive None Recorded Payers Encounter Date Sequence Insurance Name Policy Number Policy Pedersen Covered Member ID Pedersen Member ID Guarantor Name 04/25/2024 1 [facility] - DOS ON OR AFTER 2022 - DUAL ELIGIBLE - SENIOR LIVING OPTIONS AND ONE CARE (MEDICARE REPLACEMENT/ADV ANTAGE - HMO) Phil Kebede [id number] Phil Kebede Notes Date Note Type Note Provider Name and Address Organization Details Recorded Time 04/25/2024 text/html [facility] Nurse Triage Notes (Noemi Son): Chief Complaints: Cough, Common cold symptoms PMH: Diabetes Mellitus Type 2, Hypertension, Gout, Osteoarthritis Comments: ER last Saturday for productive cough. Diagnosed with Pneumonia. Given Naprosyn and 2 antibiotics. Patient finished course of medications. Cough initially started 2 weeks ago. No improvement in cough. Reporting weakness. Denies shortness of breath, sore throat body aches, or fevers. Not taking any OTC medication. BP is slightly elevated. Would also like eval of BP. [employer] Main [employer] Line [employer] Organization Information for JuanColeman davies [employer] ROVERTO Qlue Legal Name: [facility] Address: [address] [place] [address], [place] [address], Supervisor Electrolytic Tinning: Rei Blake MD CLIA No.: [id number] [employer] POC Test Results from Coleman Stauffer Blood Glucose Measurement (14:28:26) Blood Glucose: 311 mg/dL Rapid COVID antigen (14:28:30) COVID: - Rapid influenza antigen (14:28:30) Flu: - .................... .................... .................... .................... .................... .................... .................... . [employer] Note From Coleman Stauffer: This 73-year-old male with a history including but not limited to DM type II, HTN, gout, OA requested a visit to address multiple complaints. Patient states he was seen at [facility] emergency department on 04/17/24 and states he was told he had pneumonia, was discharged home with an unknown antibiotic(s), naproxen and five days of prednisone. He states he still is coughing and producing yellow sputum. Patient also requests to have his blood pressure checked and his blood glucose checked. Patient takes metoprolol, HCTZ, amlodipine to manage his blood pressure and glipizide to manage his diabetes. Patient and his son state he has been taking his medication as prescribed. Patient has a PCP follow-up appointment on . Patient denies any chest pain, shortness of breath, dyspnea on exertion, headache, dizziness, vision changes, fevers, nausea, vomiting, diarrhea.Patient presents awake and alert, in no acute distress. Blood pressure range from 160 to 170 systolic, all other vitals are stable. He is afebrile. Nonfocal neurological exam. Normal gait. Lungs are clear throughout auscultation. Abdomen is soft, nontender, nondistended. No lower extremity edema. Rapid COVID and flu negative. B (patient had a high carb breakfast and lunch). The patient has Mucinex in the home which I advised him to begin. I provided education on a diabetic friendly diet. I stressed the importance of primary care follow-up. I instructed the patient to present to the emergency department for any new or worsening severe symptoms such as chest pain, shortness of breath, severe headache, high fever, altered mental status. The patient and his son were given the opportunity to ask questions and are agreeable to this plan. .................... .................... .................... .................... .................... .................... .................... . [facility] Consulted: Cory Bran .................... .................... .................... .................... .................... .................... .................... . Disposition: Fulfilled Porter Bran MD [address] [facility],[address], [place], [address], [facility] 04/26/2024 16:58:35
--- OUTSIDE RECORDS SUMMARY | 2024-08-01 13:40 | XMS_ITS | Encounter Summary ---
Author Organization [employer] Address [address] [place] [address] Care Team Providers Care Outside Sales Advertising Executive Name Role Phone Uma Chung MD Primary Care Provide r Encounter Details Date Type Department Care Team ([facility] st Contact Info) Description 05/14/2023 Orders Only [facility] PEDS [address] [place], [place] [phone] Chelly Holloway LPN Social History Tobacco Use Types Packs/Day [...] Info) Description 08/14/2024 2:00 PM EDT Telemedicine [facility] MEDICINE [address] [place] [address] Emi Harrell RN 11/12/2024 1:00 PM EDT Office Visit [facility] [address] [place], [place] [phone] Atiya Samuel, OD [address] [place] [address] documented as of this encounter Visit Diagnoses Not on filedocumented in this encounter Additional Health Concerns Assessment Noted Time PHQ-9 Depression Total Score: 0 12/13/19 23 10:21 AM EDT documented as of this encounter Care Teams Outside Sales Advertising Executive Relationship Specialty Start Date End Date Uma Chung MD [address] [place] [address] PCP - General Family Medicine 02/21/18 documented as of this encounter
--- OUTSIDE RECORDS SUMMARY | 2024-08-01 13:40 | XMS_ITS | Encounter Summary ---
Author Organization [employer] Address [address] [place] [address] Care Team Providers Care Traffic Representative Name Role Phone Uma Chung MD Primary Care Provide r Encounter Details Date Type Department Care Team ([facility] st Contact Info) Description 07/12/2023 Telephone [facility] MEDICINE [address] [place], [place] [phone] mUa Chung MD [address] [place] [address] Social History Tobacco Use Types Packs/Day Years [...] Info) Description 08/14/2024 2:00 PM EDT Telemedicine [facility] MEDICINE [address] [place] [address] Emi Harrell RN 11/12/2024 1:00 PM EDT Office Visit [facility] OPT[facility] [address] [place] [address] Jimmie, Atiya, OD [address] [place] [address] documented as of this encounter Visit Diagnoses Not on filedocumented in this encounter Additional Health Concerns Assessment Noted Time PHQ-9 Depression Total Score: 0 12/13/19 23 10:21 AM EDT documented as of this encounter Care Teams Traffic Representative Relationship Specialty Start Date End Date Uma Chung MD [address] [place], [place] [phone] PCP - General Family Medicine 02/21/18 documented as of this encounter
--- OUTSIDE RECORDS SUMMARY | 2024-08-01 13:40 | XMS_ITS | Encounter Summary ---
Author Organization [employer] Address [address] [facility] [facility] [address] [place] [address] Care Team Providers Care Anaesthetic Technician Name Role Phone Uma Chung MD Primary Care Provide r Reason for Visit * Reason Comments Med Refill Encounter Details Date Type Department Care Team ([facility] st Contact Info) Description 07/17/2023 Refill [facility] MEDICINE [address] [place], [place] [phone] Uma Chung MD [address] [place], [place] [phone] Osteoarthritis involving multiple joints on both sides [...] Info) Description 08/14/2024 2:00 PM EDT Telemedicine [facility] MEDICINE [address] [place] [address] Emi Harrell RN 11/12/2024 1:00 PM EDT Office Visit [facility] OPTOMET[facility] [address] [place] [address] Jimmie, Atiya, OD [address] [place] [address] documented as of this encounter Visit Diagnoses Diagnosis Osteoarthritis involving multiple joints on both sides of body documented in this encounter Additional Health Concerns Assessment Noted Time PHQ-9 Depression Total Score: 0 12/13/19 23 10:21 AM EDT documented as of this encounter Care Teams Anaesthetic Technician Relationship Specialty Start Date End Date Uma Chung MD [address] [place] [address] PCP - General Family Medicine 02/21/18 documented as of this encounter
--- OUTSIDE RECORDS SUMMARY | 2024-08-01 13:40 | XMS_ITS | Clinical Summary ---
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 Role Phone Uma Chung MD Primary Care Provide r Allergies No known active allergies Medications Acetaminophen Extra Strength 500 MG tabletIndications :Other chronic pain TAKE 1 TABLET (500MG) BY ORAL ROUTE EVERY 6 HOURS NEEDED 30 tablet 07/09/19 23 Active amitriptyline (Elavil) 25 MG tabletIndications :Other chronic pain TOME NANETTE TABLETA TODOS LOS GALLAGHER AL ACOSTARSE 30 tablet 1 02/06/20 23 Active omeprazole (PriLOSEC) [address] capsule TOME NANETTE C PSULA TODOS LOS D Active phenazopyridine (Pyridium) 100 MG tablet TOME NANETTE TABLETA POR V A ORAL LUIS VECES AL D A CUANDO SEA NECESARIO PARA EL DOLOR 01/22/20 24 Active Multiple Vitamin (Daily-Maria Elena Multivitamin) tablet TAKE 1 TABLET BY MOUTH EVERY DAY 90 tablet 3 03/25/20 24 Active famotidine (Pepcid) 20 MG tabletIndications :Heartburn TAKE 1 TABLET BY MOUTH TWICE A DAY 180 tablet 3 03/25/20 24 Active amLODIPine (Norvasc) 5 MG tablet Take 1 tablet (5 mg) by mouth Once per day. 30 tablet 11 04/09/20 24 2024 Active Blood Glucose Monitoring Suppl (FreeStyle Granger Lite) w/Device kit Use to check BS 3x a day 1 kit 04/27/20 24 Active FREESTYLE LITE test strip Use to check BS 3x daily 100 each 12 04/27/20 24 2024 Active TRUEplus Lancets 33G misc Use to check BS 3x daily. 100 each 11 04/27/20 Active hydroCHLOROthiazi de 12.5 MG tabletIndications :Hypertension, unspecified type TAKE 1 TABLET BY MOUTH EVERY MORNING 90 tablet 1 04/29/20 Active metoprolol succinate XL (Toprol-XL) 100 MG 24 hr tablet TAKE 1 TABLET BY MOUTH EVERY DAY 90 tablet 1 05/06/20 Active Blood Pressure kitIndications:Es sential hypertension 1 each Once per day. 1 kit 05/06/20 24 Active simvastatin (Zocor) 10 MG tabletIndications :Hyperlipidemia, unspecified hyperlipidemia type Take 1 tablet (10 mg) by mouth at bedtime. 30 tablet 11 05/22/20 24 2024 Active sildenafil (Viagra) 100 MG tabletIndications :Erectile dysfunction, unspecified erectile dysfunction type TAKE 1 TABLET 1 HOUR BEFORE SEXUAL RELATIONS ONCE DAILY NEEDED. 15 tablet 06/15/19 25 Active glipiZIDE (Glucotrol) 10 MG tablet TAKE 1 TABLET BY MOUTH TWICE A DAY BEFORE MEALS 180 tablet 06/17/19 25 Active cromolyn (Opticrom) 4 % ophthalmic solution PLACE 1 DROP IN THE AFFECTED EYE(S) ONCE DAILY NEEED 30 mL 3 06/25/19 25 Active esomeprazole (NexIUM) [address] capsuleIndication s:Gastroesophagea l reflux disease, unspecified whether esophagitis present TAKE 1 CAPSULE BY MOUTH EVERY DAY 90 capsule 1 06/25/19 25 Active sildenafil (Viagra) 100 MG tabletIndications :Erectile dysfunction, unspecified erectile dysfunction type TAKE 1 TABLET 1 HOUR BEFORE SEXUAL RELATIONS ONCE DAILY NEEDED. 15 tablet 07/14/19 25 Active oxyCODONE-acetami nophen (Percocet) 5-325 MG tabletIndications :Osteoarthritis involving multiple joints on both sides of body Take 1 tablet by mouth every 6 (six) hours if needed for severe pain for up to 28 days. 112 tablet 07/14/19 25 2024 Active sildenafil (Viagra) 100 MG tabletIndications :Erectile dysfunction, unspecified erectile dysfunction type TAKE 1 TABLET 1 HOUR BEFORE SEXUAL RELATIONS ONCE DAILY NEEDED. 15 tablet 06/15/19 25 2024 Discontinued(R eorder (will not trigger notification to Pharmacy)) oxyCODONE-acetami nophen (Percocet) 5-325 MG tabletIndications :Osteoarthritis involving multiple joints on both sides of body Take 1 tablet by mouth every 6 (six) hours if needed for severe pain for up to 28 days. 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, Dry eye syndrome of both eyes and to f in 06/2023 CBG today 171 after meal No actual concern for glaucoma and seems symptoms associated w allergic conjucntivitis but not improving on current tx and more unilateral complaint -I called [facility] and was able to get apt for pt to be seen today to have further eye eval-pt to be sen todayat 2h30 pm -pt agreed w apt -alarm signs and symptoms discussed Nausea & vomiting 03/14/2023 Assessment & Plan (03/14/2023 10:03 AM EDT): Counseling done if vomiting is persistent I advise patient got to the emergency room for IV fluids and further evaluation Heartburn 03/14/2023 Assessment & Plan (03/14/2023 10:03 AM EDT): I advise patient to avoid NSAIDs, spicy and acid food, I advise to eat at the same time every day, I advise to elevate the head of the bed and take medications as prescribe Colon cancer screening 03/14/2023 Other chronic pain 12/12/2022 Assessment & Plan (12/12/2022 10:59 AM EDT): I will try amitriptyline 25mg at bed time Type 2 diabetes mellitus without complication Assessment & Plan (03/25/2024 12:34 PM EDT): Diabetes is: controlled - Lab Results Component Value Date HGBA1C 6.0 07/10/2023 HGBA1C 6.3 (A) 07/05/2023 HGBA1C 6.8 (A) 03/14/2023 - Lab Results Component Value Date MICROALBUR 16.4 11/09/2020 CREATININE 2.51 (H) 07/08/2023 -Changes: none - Diabetic eye exam:up to date - Diabetic foot exam:pending - Continue lifestyle modifications - Continue current medications - Follow up: 3 months Assessment & Plan (07/05/2023 4:03 PM EST): - Lab Results Component Value Date HGBA1C 6.3 (A) 07/05/2023 HGBA1C 6.8 (A) 03/14/2023 HGBA1C 6.9 (A) 12/12/2022 - Lab Results Component Value Date MICROALBUR 16.4 11/09/2020 CREATININE 2.61 (H) 04/10/2023 - Diabetic eye exam:referral done today - Diabetic foot exam up to date - Continue lifestyle modifications - Continue current medications - Assessment & Plan (12/12/2022 10:58 AM EDT): - Lab Results Component Value Date HGBA1C 6.9 (H) 11/09/2020 HGBA1C 6.5 (H) 07/08/2020 - Lab Results Component Value Date MICROALBUR 16.4 11/09/2020 CREATININE 2.22 (H) 05/13/2021 - Diabetic eye exam:up to date - Diabetic foot exam:pending - Continue lifestyle modifications - Continue current medications Stage 4 chronic kidney disease 10/30/2022 Osteoarthritis of both knees 10/30/2022 Assessment & Plan (12/12/2022 11:00 AM EDT): Patient is being follow by orthopedics he has an appointment tomorrow 12/13/22 Chronic left shoulder pain 10/30/2022 Dental abscess 09/26/2022 Excessive attrition of teeth, limited to enamel 09/26/2022 Mood disorder 12/31/2017 Osteoarthritis involving mul tiple joints on both sides of body 02/01/2017 Whole body pain 01/14/2017 Essential hypertension 12/14/2016 Assessment & Plan (06/08/2024 2:06 PM EST): I advised: - Aerobic exercise to reduce BP. Initial goal of 30 min walk 3-5x/week. Increase as tolerated. - low-sodium diet (goal: <2g/day) and heart healthy diet such as DASH to reduce BP and prevent ASCVD. - Home BP monitoring 1-2 x day with goal of <140/90. - Seek immediate medical attention for chest pain, palpitations, SOB, syncope, or sudden changes in mental status. - Do not change or discontinue current prescriptions without first consulting health care provider Assessment & Plan (05/08/2024 4:10 PM EST): I advise to take medication every day as prescribed I advised low Na diet I believe patient will benefit from VNA services for medication administration and blood pressure check, services will be requested Assessment & Plan (03/25/2024 12:34 PM EDT): Today BP elevated, I advise low Na diet and weight reduction RTC 2 weeks nurse visit with log, if BP is not at goal plan is to increase hydrochlorothiazide Assessment & Plan (02/18/2024 8:06 PM EDT): BP mild elevated but w some discomfort in eye so possible reactive ? -pt to f w PCP ,advised to bring home BP readings Assessment & Plan (07/05/2023 4:00 PM EST): - Aerobic exercise to reduce BP. Initial goal of 30 min walk 3-5x/week. Increase as tolerated. - low-sodium diet (goal: <2g/day) and heart healthy diet such as DASH to reduce BP and prevent ASCVD. - Home BP monitoring 1-2 x day with goal of <140/90. - Seek immediate medical attention for chest pain, palpitations, SOB, syncope, or sudden changes in mental status. - Do not change or discontinue current prescriptions without first consulting health care provider Assessment & Plan (03/14/2023 9:56 AM EDT): Patient did not took his medications today due to nausea and vomiting I advise to take his medications I advise low Na diet Assessment & Plan (12/12/2022 10:57 AM EDT): - Aerobic exercise to reduce BP. Initial goal of 30 min walk 3-5x/week. Increase as tolerated. - low-sodium diet (goal: <2g/day) and heart healthy diet such as DASH to reduce BP and prevent ASCVD. - Home BP monitoring 1-2 x day with goal of <140/90. - Seek immediate medical attention for chest pain, palpitations, SOB, syncope, or sudden changes in mental status. 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 Diverticula of intestine 12/14/2016 Type 2 diabetes mellitus 11/12/2016 Assessment & Plan (06/08/2024 2:07 PM EST): Diabetes is: almost at goal - Lab Results Component Value Date HGBA1C 7.3 (A) 05/06/2024 HGBA1C 6.0 07/10/2023 HGBA1C 6.3 (A) 07/05/2023 - Lab Results Component Value Date MICROALBUR 16.4 11/09/2020 CREATININE 2.51 (H) 07/08/2023 -Changes: none - Diabetic eye exam:up to date - Diabetic foot exam:referral in - Continue lifestyle modifications - Continue current medications - Follow up: 3 months Assessment & Plan (05/08/2024 4:11 PM EST): Diabetes is: almost at goal - Lab Results Component Value Date HGBA1C 7.3 (A) 05/06/2024 HGBA1C 6.0 07/10/2023 HGBA1C 6.3 (A) 07/05/2023 - Lab Results Component Value Date MICROALBUR 16.4 11/09/2020 CREATININE 2.51 (H) 07/08/2023 -Changes: VNA services will be requested for medication administration and glucose check - Diabetic eye exam:up to date - Diabetic foot exam:referral done today - Continue lifestyle modifications - Continue current medications - Follow up: 3 months Assessment & Plan (03/14/2023 10:04 AM EDT): - Lab Results Component Value Date HGBA1C 6.8 (A) 03/14/2023 HGBA1C 6.9 (A) 12/12/2022 HGBA1C 6.9 (H) 11/09/2020 - Lab Results Component Value Date MICROALBUR 16.4 11/09/2020 CREATININE 2.22 (H) 05/13/2021 - Diabetic eye exam:referral today - Diabetic foot exam:referral today - Continue lifestyle modifications - Continue current medications Obesity 11/12/2016 Peripheral vascular disease 11/12/2016 Hyperlipidemia 11/12/2016 Gastroesophageal reflux disease without esophagi tis 11/12/2016 Chronic back pain 11/12/2016 Encounters Date Type Department Care Team Description 08/01/2024 Orders Only GENERIC EXTERNAL DATA DEPARTMENT Provider, Generic External Data 07/31/2024 Telephone [facility] [address] [place] [address] Uma Chung MD Nurse Triage 07/22/2024 Refill [facility] [address] [place] [address] Uma Chung MD Erectile dysfunction, unspecified erectile dysfunction type 07/16/2024 Orders Only [facility] [address] [place] [address] Uma Chung MD 07/14/2024 Refill [facility] [address] [place] [address] Uma Chung MD Erectile dysfunction, unspecified erectile dysfunction type 07/14/2024 Refill [facility] [address] [place] [address] Uma Chung MD Osteoarthritis involving multiple joints on both sides of body 06/25/2024 Refill [facility] [address] [place] [address] Uma Chung MD Gastroesophageal reflux disease, unspecified whether esophagitis present 06/24/2024 Refill [facility] [address] [place] [address] Uma Chung MD 06/17/2024 Refill [facility] [address] [place] [address] Uma Chung MD 06/15/2024 Refill [facility] [address] [place] [address] Uma Chung MD Osteoarthritis involving multiple joints on both sides of body 06/15/2024 Refill [facility] [address] [place] [address] Uma Chung MD Erectile dysfunction, unspecified erectile dysfunction type; Osteoarthritis involving multiple joints on both sides of body 06/15/2024 Telephone [facility] [address] [place] [address] Uma Chung MD Med Refill 06/12/2024 Refill [facility] [address] [place] [phone] Uma Chung MD Osteoarthritis involving multiple joints on both sides of body; Erectile dysfunction, unspecified erectile dysfunction type 06/08/2024 1:30 PM EST Office Visit [facility] [address] [place] [phone] Uma Chung MD Essential hypertension (Primary Dx); Type 2 diabetes mellitus without complication, without long-term current use of insulin ([facility]) 06/08/2024 Travel 06/02/2024 Patient Outreach [facility] [address] [place] [phone] Uma Chung MD Pre-visit Planning (SDOH screening negative and tobacco screening negative) 05/22/2024 10:30 AM EST Telemedicine [facility] [address] [place] [address] Emi Harrell RN Other chronic pain 05/22/2024 Telephone [facility] [address] [place] [address] Emi Harrell, RN SUPERVISOR [employer]ODUCT INS[employer]CTION Renewal today 05/22/2024 Refill [facility] [address] [place] [address] Uma Chung MD Hyperlipidemia, unspecified hyperlipidemia type 05/22/2024 Travel 05/22/2024 Telephone [facility] [address] [place] [address] Emi Harrell RN Recommend Tele SUPERVISOR PRODUCT INSPECTION Tier 2 05/18/2024 Telephone [facility] [address] [place] [address] Uma Chung MD Durable Medical Equipment 05/11/2024 Refill [facility] [address] [place] [address] Uma Chung MD Erectile dysfunction, unspecified erectile dysfunction type 05/11/2024 Refill [facility] [address] [place], [place] [phone] Uma Chung MD Osteoarthritis involving multiple joints on both sides of body 05/06/2024 9:15 AM EST Office Visit [facility] [address] [place] [address] Uma Chung MD Essential hypertension (Primary Dx); Type 2 diabetes mellitus without complication, without long-term current use of insulin ([facility]); Encounter for immunization 05/06/2024 Travel 05/06/2024 Refill [facility] [address] [place] [address] Connie Garcia ANP 05/04/2024 Telephone [facility] [address] [place], [place] [phone] Ayanna Hou MA Chart Prep from Last 3 Months Immunizations Name Administration Dates Next Due Influenza High-dose Quadrivalent Preservative Fr ee 03/29/2020 Influenza, High Dose Seasonal, Preservative Free 02/24/2018 Influenza, seasonal, injectable, preservative fr ee 05/06/2024 Pfizer Covid-19 Vaccine 12+ 05/06/2024 Pneumococcal Conjugate PCV 20 07/05/2023 Zoster, live 11/16/2016 Social History Tobacco Use Types Packs/Day Years Used Date Smoking Tobacco: Never Passive Smoke Exposure: Never Smokeless Tobacco: Never Tobacco Cessation:Counseling Given: Not Answered Alcohol Use Standard Drinks/Week Comments Never 0 [...] Orientation Straight 04/02/2022 10 :24 AM EDT Last Filed Vital Signs Vital Sign Reading Time Taken Comments Blood Pressure 120/76 06/08/2024 1:12 PM EST Pulse 60 06/08/2024 1:12 PM EST Temperature 36.1 ??C (97 ??F) 06/08/2024 1:12 PM EST Respiratory Rate 20 06/08/2024 1:12 PM EST Oxygen Saturation 99% 04/29/2024 11:11 AM EST Inhaled Oxygen Concentration - - Weight 94 kg (207 lb 2 oz) 06/08/2024 1:12 PM ES T Height 198.1 cm (6' 6 ) 06/08/2024 1:12 PM EST Body Mass Index 23.94 06/08/2024 1:12 PM EST Plan of Treatment Upcoming Encounters Date Type Department Care Team (Late st Contact Info) Description 08/14/2024 2:00 PM EDT Telemedicine [facility] [address] [place], [place] [phone] Emi Harrell RN 11/12/2024 1:00 PM EDT Office Visit [facility] [address] [place] [address] Atiya Samuel, OD [address] [place] [address] Health Maintenance Due Date Last Done Comments Dental Prophylaxis 1950 Dental X-Ray: Bitewings 1948 Diabetes: Foot Exam 1958 Alcohol/Substance Use Screening 1960 Hepatitis C Screening 1966 DTaP/Tdap/Td Vaccines (1 - Tdap) 1967 Zoster Vaccines (2 of 3) 01/11/2017 11/16/2016 Lipid Panel 2022 2021, 11/09/2020 Dental Oral Exam 03/29/2023 09/26/2022 RSV Patients and Patients Aged 60 years or older (1 - 1-dose 75+ series) 2023 Diabetes: Hemoglobin A1C 08/04/2024 024, 07/10/2023, 07/05/2023, Additional history exists Eye Exam 11/06/2024 11/07/2023, 0611/2023, 11/07/2023, Additional history exists Depression Screening 05/06/2025 05/06/2024, 05/06/20 24 SDOH Screening 06/02/2025 06/02/2024 Tobacco Screening 06/08/2025 06/08/2024 Dental X-Ray: Full Mouth 09/27/2025 09/26/2022 Colonoscopy Discontinued 08/07/2011 Colorectal Cancer Screening Discontinued Pneumococcal Vaccine: 50+ Years Completed 07/05/2023 COVID-19 Vaccine Completed 05/06/2024, 09/07/2020 Influenza Vaccine Completed 05/06/2024, , 02/24/2018 CT Colonography Discontinued FIT DNA/Cologuard Discontinued FIT Discontinued FOBT Discontinued HIB Vaccines Aged Out No longer eligi ble based on patient's age to complete this topic HPV Vaccines Aged Out No longer eligi ble based on patient's age to complete this topic Hepatitis A Vaccines Aged Out No long er eligible based on patient's age to complete this topic Hepatitis B Vaccines Aged Out No long er eligible based on patient's age to complete this topic IPV Vaccines Aged Out No longer eligi ble based on patient's age to complete this topic Meningococcal Vaccine Aged Out No jason lizette eligible based on patient's age to complete this topic RSV under 20 months Aged Out No longe r eligible based on patient's age to complete this topic Rotavirus Vaccines Aged Out No longer eligible based on patient's age to complete this topic Sigmoidoscopy Discontinued Procedures Procedure Name Priority Date/Time Associated Diagnosis Comments XR ANKLE 3+ VIEWS LEFT Routine 08/01/2024 12:14 PM EST XR FOOT 3+ VIEWS LEFT Routine 08/01/2024 12:14 PM EST SED RATE BY MODIFIED WESTERGREN Routine 08/01/2024 11:45 AM EST SLIDE REVIEW Routine 08/01/2024 11:45 AM EST CBC WITH AUTO DIFFERENTIAL Routine 08/01/2024 11:45 AM EST C-REACTIVE PROTEIN Routine 08/01/2024 11 :44 AM EST URIC ACID Routine 08/01/2024 11:44 AM EST BASIC METABOLIC PANEL Routine 08/01/2024 11:44 AM EST POCT GLUCOSE Routine 06/08/2024 1:14 PM EST Type 2 diabetes mellitus without complication, without long-term current use of insulin ([facility]) POCT GLUCOSE Routine 05/06/2024 9:21 AM EST Type 2 diabetes mellitus without complication, without long-term current use of insulin ([facility]) POCT GLYCATED HEMOGLOBIN, TOTAL Routine 05/06/2024 9:20 AM EST Type 2 diabetes mellitus without complication, without long-term current use of insulin ([facility]) PANORAMIC RADIOGRAPHIC IMAGE Routine 09/26/2022 11:30 AM EDT PERIODIC ORAL EVALUATION - ESTABLISHED PATIENT Routine 09/26/2022 11:30 AM EDT ZZZ HISTORICAL LIPID PANEL Routine 2021 8:18 AM EST HM COLONOSCOPY Routine 08/07/2011 from Last 3 Months or Most Recently Relevant to Health Maintenance Results * XR Foot 3+ Views Left (08/01/2024 12:14 PM EST) Anatomical Region Laterality Modality Lower Extremities, Foot Left Radiogra phic Imaging 08/01/2024 12:1 4 PM EST Narrative 08/01/2024 12:15 PM EST ? [facility] ?[address] ?[place] [address] ?XRay Report ? Signed ? Patient: Phil Kebede ?MR#: [id number] ?? 87 ? : 1950 ?Acct:[id number] ? Age/Sex: 74 / M ?ADM Date: 08/01/24 ? Loc: HO.ED ? Attending Dr: ? Ordering Physician: Audra Ferrer ?? Date of Service: 08/01/24 ?? Procedure(s): XR foot LT min 3V ?? Accession Number(s): [id number] ? cc: Uma Chung MD; Audra Ferrer [...] ? 08/01/241214 ? DD/ 13 ? TD/TT: 08/01/241213 ? [employer]: ? Procedure Note Donarater, Image - 08/01/[address] [address] XRay Report Signed Patient: Phli Kebede AMR#: [id number] [birth year] : 8Acct:[id number] Age/Sex: 74 / MADM Date: 08/01/24 Loc: HO.ED Attending Dr: Ordering Physician: Audra Ferrer Date of Service: 08/01/24 Procedure(s): XR foot LT min 3V Accession Number(s): [id number] cc: Uma Chung MD; Audra Ferrer CLINICAL [...] 08/01/24 1215 DD/ 1214 TD/TT: 08/01/24 1214 [employer]: [facility] External Provider IMG XR PROCEDURES Edited Result - Final * XR Ankle 3+ Views Left (08/01/2024 12:14 PM EST) Anatomical Region Laterality Modality Lower Extremities, Ankle Left Radiogr aphic Imaging 08/01/2024 12:1 4 PM EST Narrative 08/01/2024 12:15 PM EST ? [facility] ?[address] ?[place] [address] ?XRay Report ? Signed ? Patient: Delio,Rohit ?MR#: [id number] ?? 87 ? : 1950 ?Acct:[id number] ? Age/Sex: 74 / M ?ADM Date: 03/01/25 ? Loc: HO.ED ? Attending Dr: ? Ordering Physician: Audra Ferrer ?? Date of Service: 08/01/24 ?? Procedure(s): XR ankle LT min 3V ?? Accession Number(s): [id number] ? cc: Uma Chung MD; Audra Ferrer [...] DD/ 1214 ? TD/TT: 08/01/24 1214 ? [employer]: ? Procedure Note Gonzales Pham - 08/01/[address] [address] XRay Report Signed Patient: Phil Kebede AMR#: [id number] [birth year] : 1950cct:[id number] Age/Sex: 74 / MADM Date: 08/01/24 Loc: HO.ED Attending Dr: Ordering Physician: Audra Ferrer Date of Service: 08/01/24 Procedure(s): XR ankle LT min 3V Accession Number(s): [id number] cc: Uma Chung MD; Audra Ferrer CLINICAL [...] 08/01/24 1215 DD/ 1214 TD/TT: 08/01/24 1214 [employer]: [facility] External Provider IMG XR PROCEDURES Edited Result - Final * Slide Review (08/01/2024 11:45 AM EST) Slide Review VERIFIED [facility] 08/01/2024 11:4 5 AM EST 08/01/2024 11:48 AM EST Generic External Data Provider LAB BLOOD ORDERAB LES Final Result [facility] [address] [place] [phone] * (ABNORMAL) CBC auto differential (08/01/2024 11:45 AM EST) White Blood Count 9.5 4.8 - 10.8 X10*3/uL [facility] Red Blood Count 3.32(L) 4.60 - 5.80 X10*6/uL [facility] Hemoglobin 9.9(L) 14.0 - 18.0 g/dl [facility] Hematocrit 29.8(L) 42.0 - 52.0 % [facility] Mean Corpuscular Volume 89.8 80.0 - 98.0 fL [facility] Mean Corpuscular Hemoglobin 29.8 27.0 - 33.0 pg [facility] Mean Corpuscular HGB Conc 33.2 31.0 - 36.0 g/dl [facility] Red Cell Distribution Width 13.2 11.0 - 16.0 % [facility] Platelet Count 312 160 - 400 X10*3/uL [facility] Comment:Confirmed by smear. Neutrophils Percent Auto 66.6 45 - 73 % [facility] Imm Gran Pct Auto 0.5(H) 0.0 - 0.4 % [facility] Lymphocytes Percent Auto 21.2 20 - 40 % [facility] Monocytes Percent Auto 9.8 2 - 11 % [facility] Eosinophils Percent Auto 1.4 0 - 4 % [facility] Basophils Percent Auto 0.5 0 - 2 % [facility] NRBC Pct Auto 0.0 0.0 - 0.2 /100WBC [facility] Neutrophils Absolute Auto 6.3 2.0 - 8.3 x10*3/uL [facility] Imm Gran Abs Auto 0.05(H) 0.00 - 0.03 X10*3/uL [facility] Lymphocytes Absolute Auto 2.0 1.2 - 4.9 X10*3/uL [facility] Monocytes Absolute Auto 0.9 0.1 - 1.2 X10*3/uL [facility] Eosinophils Absolute Auto 0.1 0.0 - 0.4 X10*3/uL [facility] Basophils Absolute Auto 0.1 0.0 - 0.2 X10*3/uL [facility] NRBC Abs Auto 0.000 0.0 - 0.012 X10*3/uL [facility] 08/01/2024 11:4 5 AM EST 08/01/2024 11:48 AM EST us Generic External Data Provider LAB BLOOD ORDERAB LES Edited Result - Final [facility] [address] [place] [address] [phone] * (ABNORMAL) Sed Rate by Modified Baljeetren (08/01/2024 11:45 AM EST) Erythrocyte Sedimentation Rate 74(H) 0 - 15 MM/HR [facility] Comment:Patients with polycy themia and many hemoglobin abnormalitiesmay have depressed sed rates whereas patients with anemiamay have elevated sed rates. 08/01/2024 11:4 5 AM EST 08/01/2024 11:48 AM EST us Generic External Data Provider LAB BLOOD ORDERAB LES Final Result Performing Organization Address [facility]/ZIP Co de Phone Number [facility] [address] [place] [phone] * (ABNORMAL) C-reactive Protein (08/01/2024 11:44 AM EST) C Reactive Protein 7.86(H) < or = 0.50 mg/dL [facility] 08/01/2024 11:4 4 AM EST 08/01/2024 11:48 AM EST us Generic External Data Provider LAB BLOOD ORDERAB LES Final Result Performing Organization Address [facility] Co de Phone Number [facility] [address] [place] [address] [phone] * (ABNORMAL) Uric acid (08/01/2024 11:44 AM EST) Pathologist [facility] Uric Acid 7.8(H) 3.4 - 7.0 mg/dL [facility] 08/01/2024 11:4 4 AM EST 08/01/2024 11:48 AM EST us Generic External Data Provider LAB BLOOD ORDERAB LES Final Result Performing Organization Address [facility] Co de Phone Number [facility] [address] [place] [address] [phone] * (ABNORMAL) Basic Metabolic Panel (08/01/2024 11:44 AM EST) Sodium 142 135 - 145 mmol/L [facility] Potassium 4.3 3.3 - 5.1 mmol/L [facility] Chloride 111(H) 96 - 108 mmol/L [facility] Carbon Dioxide 21(L) 22 - 29 mmol/L [facility] Anion Gap 14 12 - 20 [facility] Urea Nitrogen (BUN) 28(H) 9 - 16 mg/dL [facility] Creatinine, Serum 2.29(H) 0.5 - 1.4 mg/dL [facility] Creatinine Clr Calc Pharmacy 30.1 [facility] Comment:eGFR (calculated fro m the MDRD study equation) and eCrCl(calculated from the Cockcroft-Gault equation) are based ondifferent parameters and may not yield comparable results.If eCrCl result is absurd, please check patient'sheight/weight. Estimated Glomerular Filt Rate 28 [facility] Comment:Chronic Kidney Disea se: Estimated GFR < 60 mL/min/1.33m9Uvynin Kidney Disease: Estimated GFR < 15 mL/min/1.73m2 Glucose 154(H) 60 - 115 mg/dL [facility] Calcium 8.5 8.4 - 10.2 mg/dL [facility] 08/01/2024 11:4 4 AM EST 08/01/2024 11:48 AM EST us Generic External Data Provider LAB BLOOD ORDERAB LES Final Result [facility] [address] [place] [address] [phone] * (ABNORMAL) POCT Glucose (06/08/2024 1:14 PM EST) Only the most recent of2 resultswithin the time period is included. Glucose Blood, POC 209(A) 60 - 200 mg/dL QC Media Lot # [id number] Lot# Expiration Date Blood Capillary blood specimen / Unknown 06/08/2024 1:14 PM EST us Uma Friedman MD POINT OF CARE TEST EN TER/EDIT ORDERABLES Final Result * (ABNORMAL) POCT HGB A1C (05/06/2024 9:20 AM EST) Hemoglobin A1C 7.3(A) 4.0 - 6.0 % QC Media Lot # [id number] Lot# Expiration Date Blood 05/06/2024 9:20 AM EST us Uma Friedman MD POINT OF CARE TEST EN TER/EDIT ORDERABLES Final Result * (ABNORMAL) LIPID PANEL (2021 8:18 AM EST) Cholesterol 155 mg/dL [facility] Comment: Desirable Cholesterol: ?less than 200 mg/dL Borderline High Cholesterol: ??200-239 mg/dL High Cholesterol: ? greater than 239 mg/dL HDL Cholesterol 31 mg/dL [facility] Comment: Desirable HDL: ??greater than 40 mg/dL ?? Note: This HDL assay may give artificially ? low results in patients with liver disease. LDL Cholesterol Calculated 80 mg/dl [facility] Comment: Desirable LDL: ? less than 100 mg/dL Near Optimal/Above Optimal LDL: ??110-129 mg/dL Borderline High LDL: ? 130-159 mg/dL High LDL: ?160-189 mg/dL Very High LDL: ? greater than or equal to ?190 mg/dL Triglycerides 224 mg/dL [facility] Comment: Desirable Triglyceride: ? less than 150 mg/dL Borderline High Triglyceride ??150-199 mg/dL High Triglyceride: ?200-499 mg/dL Very High Triglyceride: ? greater than or equal to ? 5OO mg/dL Alanine Aminotransferase 28 0 - 40 U/L [facility] Albumin Level 4.0 3.5 - 5.0 g/dL [facility] Alkaline Phosphatase 105 39 - 117 U/L [facility] Aspartate Amino Transferase 27 5 - 37 U/L [facility] Bilirubin Direct 0.3 0.0 - 0.5 mg/dL [facility] Bilirubin Total 0.6 0.0 - 1.0 mg/dL [facility] Total Protein 8.1(H) 6.5 - 8.0 g/dL [facility] Vitamin D 25-OH Total 24.0 >30 ng/mL [facility] Comment: Health Based Reference Values* ?? < 20 ??ng/mL ??Deficient 20-30 ng/mL ??Insufficient > 30 ??ng/mL ??Sufficient ?? *Cassie GREENBERG. N Engl J Med. 2007;[id number]:266-280 ?? Care must be taken in interpreting Vitamin D results from different laboratories and methodologies. ??Published data demonstrated that results from patients undergoing hemodialysis may show a negative bias when tested with various automated 25-OH vitamin D assays when compared to LC-MS/MS. ?? When testing samples from patients whose predominant form of Vitamin D is Vitamin D2, such as patients receiving Vitamin D2 supplementation, results that are subtherapeutic should be confirmed with another method such as LC-MS/MS. Anion Gap 13 12 - 20 [facility] Blood Urea Nitrogen 32(H) 9 - 16 mg/dL [facility] Calcium 9.7 8.4 - 10.2 mg/dL [facility] Carbon Dioxide 22 22 - 29 mmol/L [facility] Chloride 110(H) 96 - 108 mmol/L [facility] Creatinine, Serum 1.93(H) 0.5 - 1.4 mg/dL [facility] Estimated Glomerular Filt Rate 34 [facility] Comment: NOTE: ??For -Vincentian individuals, multiply the result ?by 1.210. ?? Chronic Kidney Disease: ??Estimated GFR < 60 mL/min/1.73m2 Severe Kidney Disease: ??Estimated GFR < 15 mL/min/1.73m2 Glucose Random 168(H) 60 - 115 mg/dL [facility] Potassium 5.1 3.3 - 5.1 mmol/L [facility] Sodium 140 135 - 145 mmol/L [facility] TSH reflex Free T4 1.51 0.32 - 4.0 uIU/mL [facility] 2021 8:18 AM EST Uma Friedman MD HISTORICAL/NON ORDERA BLE LABS Final Result [facility] [address] * Hm Colonoscopy (08/07/2011) Historical Provider HEALTH MAINTENANCE Final Result from Last 3 Months or Most Recently Relevant to Health Maintenance Insurance [facility] - [facility] Member Subscriber Plan / Payer (Ef fective 2022-Present) Name:Phil Kebede Relation to Subscriber:Self Name:Phil Kebede Payer ID:Not on file Group ID:Not on file Type:Not on file Address: [place] [phone] Care Teams Motor Grader Operator Relationship Specialty Start Date End Date Uma Chung MD [address] [place] [phone] PCP - General Family Medicine 02/21/18
--- OUTSIDE RECORDS SUMMARY | 2024-08-01 13:40 | XMS_ITS | Encounter Summary ---
Author Organization [employer] Address [address] [facility] [address] [place] [address] Care Team Providers Care Thread Puller Name Role Phone Uma Chung MD Primary Care Provide r Reason for Visit * Reason Onset Date Comments Med Refill 06/15/2024 Encounter Details Date Type Department Care Team ([facility] st Contact Info) Description 06/15/2024 Telephone [facility] [address] [place], [place] [phone] Uma Chung MD [address] [place], [place] [phone] Med Refill Social History Tobacco Use Types [...] encounter Miscellaneous Notes * Telephone Encounter - Tolu Lopez - 06/15/2024 8:14 AM EST TC from pt requesting medication refill. Medications needing refill : sildenafil (Viagra) 100 MG tablet To be sent to: [facility] documented in this encounter Plan of Treatment Upcoming Encounters Date Type Department Care Team (Late st Contact Info) Description 08/14/2024 2:00 PM EDT Telemedicine [facility] [address] [place] [address] Emi Hrarell RN 11/12/2024 1:00 PM EDT Office Visit [facility] [address] [place] [address] Jimmie, Atiya, OD [address] [place] [address] documented as of this encounter Visit Diagnoses Not on filedocumented in this encounter Additional Health Concerns Assessment Noted Time PHQ-9 Depression Total Score: 4 05/06/20 24 9:16 AM EST documented as of this encounter Care Teams Thread Puller Relationship Specialty Start Date End Date Uma Chung MD [address] [place] [phone] PCP - General Family Medicine 02/21/18 documented as of this encounter
--- OUTSIDE RECORDS SUMMARY | 2024-08-01 13:40 | XMS_ITS | Encounter Summary ---
Author Organization [employer] Address [address] [place] [address] Care Team Providers Care Cigar Head Stringer Name Role Phone Uma Chung MD Primary Care Provide r Encounter Details Date Type Department Care Team ([facility] st Contact Info) Description 10/16/2023 Telephone [facility] [address] [place], [place] [phone] Uma Chung MD [address] [place], [place] [phone] Social History Tobacco Use Types Packs/Day Years [...] Info) Description 08/14/2024 2:00 PM EDT Telemedicine [facility] [address] [place] [address] Emi Harrell RN 11/12/2024 1:00 PM EDT Office Visit [facility] [address] [place] [address] Jimmie, Atiya, OD [address] [place] [phone] documented as of this encounter Visit Diagnoses Not on filedocumented in this encounter Additional Health Concerns Assessment Noted Time PHQ-9 Depression Total Score: 0 12/13/19 23 10:21 AM EDT documented as of this encounter Care Teams Cigar Head Stringer Relationship Specialty Start Date End Date Uma Chung MD [address] [place], [place] [phone] PCP - General Family Medicine 02/21/18 documented as of this encounter
--- OUTSIDE RECORDS SUMMARY | 2024-08-01 13:40 | XMS_ITS | Encounter Summary ---
Author Organization [employer] Address [address] [facility] [address] [place] [address] Care Team Providers Care Icu Rn Name Role Phone Uma Chung MD Primary Care Provide r Reason for Visit * Reason Comments Med Refill Encounter Details Date Type Department Care Team ([facility] st Contact Info) Description 05/07/2023 Refill [facility] [address] [place], [place] [phone] Uma Chung MD [address] [place], [place] [phone] Osteoarthritis involving multiple joints on both sides [...] Description 08/14/2024 2:00 PM EDT Telemedicine [facility] [address] [place] [address] Emi Harrell RN 11/12/2024 1:00 PM EDT Office Visit [facility] [address] [place] [address] Jimmie, Atiya, OD [address] [place] [address] documented as of this encounter Visit Diagnoses Diagnosis Osteoarthritis involving multiple joints on both sides of body documented in this encounter Additional Health Concerns Assessment Noted Time PHQ-9 Depression Total Score: 0 12/13/19 23 10:21 AM EDT documented as of this encounter Care Teams Icu Rn Relationship Specialty Start Date End Date Uma Chung MD [address] [place] [address] PCP - General Family Medicine 02/21/18 documented as of this encounter
[2024-08-01 14:18] VITALS: BP 143/76; PULSE 91; RESP 18; TEMP 36.6; O2SAT 99
== END 2024-08-01 14:18 | disposition home or self-care (01) ==
PROVIDERS: Physician Assistant; Emergency Provider Emergency Medicine; PCP Internal Medicine
DX: M10.9 Gout, unspecified (principal); M79.672 Pain in left foot; I48.91 Unspecified atrial fibrillation; E11.9 Type 2 diabetes mellitus without complications
CPT/HCPCS: 36415; 73610; 73630; 80048; 84550; 85025; 85652; 86140; 99282; 99283

== ENCOUNTER → 2024-08-01 11:28 | Outpatient (BNV) | payer OTHER, SELFPAY | PROVIDERS: PCP Internal Medicine; Visit Provider Radiology Vascular & Interventional Radiology | DX: R22.42 Localized swelling, mass and lump, left lower limb (principal) | CPT/HCPCS: 73610; 73630 ==

== ENCOUNTER 2024-08-05 07:11 | Inpatient (IN) | payer OTHER, SELFPAY ==
[2024-08-05] VITALS (26 sets, daily range): BP systolic 142–201; BP diastolic 79–130; PULSE 75–122; RESP 16–28; TEMP 36.8–37; O2SAT 90–98; BMI 34.7
--- NOTE | ~2024-08-05 | XR_ITS ---
EXAMINATION: XR CHEST CLINICAL INFORMATION: SOB repeat COMPARISON: August 05, 2024 at 7:50 AM. TECHNIQUE: Frontal view of the chest was obtained. FINDINGS: Multifocal patchy and confluent opacities extending from the perihilar region to the periphery of the lungs. Haziness in the lower hemithoraces. No pneumothorax. Heart silhouette size is normal. XR/XR chest 1V IMPRESSION: Worsening pulmonary edema increased bilateral small pleural effusions. Electronically signed by: Pranav Frye MD 08/05/2024 02:37 PM [facility]
--- NOTE | ~2024-08-05 | XR_ITS ---
EXAMINATION: XR CHEST CLINICAL INFORMATION: chest pain COMPARISON: April 17, 2024. TECHNIQUE: Frontal view of the chest was obtained. FINDINGS: Bilateral multifocal patchy opacities extending from the pulmonary hilum to the periphery more conspicuous in the right side. Haziness in the right lower hemithorax and blunting of the right costophrenic angle. No pneumothorax. Cardiomediastinal silhouette size is mildly prominent, unchanged. Vascular clips overlapping the right upper hemithorax. 3 mm calcified nodule right upper hemithorax. Multilevel thoracic spondylosis. XR/XR chest 1V IMPRESSION: Consider pulmonary edema in the correct clinical settings with small to moderate volume right-sided pleural effusion. Granuloma, right upper lung lobe. Electronically signed by: Pranav Frye MD 08/05/2024 08:02 AM [facility]
--- NOTE | 2024-08-05 07:14 | ECG_ITS ---
Test Reason : chest pain Blood Pressure : */* mmHG Vent. Rate : 126 BPM Atrial Rate : * BPM P-R Int : * ms QRS Dur : 104 ms QT Int : 336 ms P-R-T Axes : * 37 150 degrees QTcB Int : 486 ms Atrial fibrillation with rapid ventricular response Minimal voltage criteria for LVH, may be normal variant ( Scotty product ) Anterior infarct , age undetermined Marked ST abnormality, possible lateral subendocardial injury Abnormal ECG When compared with ECG of 15-Oct-2019 12:07, Significant changes have occurred Referred By: Generic ED Physician Electronically Signed By: FRANCA PATEL MD
--- NOTE | 2024-08-05 07:30 | ED_ITS ---
HPI - Chest Pain General Chief Complaint: Arrhythmia/Palpitations Stated Complaint: CP Since Last Night Vomiting Time Seen by Provider: 08/05/24 07:25 Source: patient Mode of arrival: ambulatory Limitations: no limitations History of Present Illness HPI narrative: This is a 74 years old the patient with a history of type 2 diabetes, essential hypertension, gout presented to the emergency department with a chief complaint of chest pain palpitation since last night. Denies any fever she has vomiting and diarrhea. He was found to be rapid AFib in triage MD complaint: chest pain Onset (ago): day(s) (1) Timing of current episode: constant Onset: during rest Pain location: substernal Pain radiation: none Severity: moderate Quality: aching Relieving factors: nothing Exacerbating factors: nothing Risk Factors Coronary artery disease risk factors: none Thoracic aortic dissection risk factors: none Related Data Home Medications ?Medication ?Instructions ?Recorded ?Confirmed amitriptyline 25 mg tablet 25 mg PO BEDTIME 12/24/22 amlodipine 10 mg tablet 10 mg PO DAILY 12/24/22 esomeprazole magnesium 40 mg 40 mg PO DAILY 12/24/22 capsule,delayed release glipizide 10 mg tablet 10 mg PO BID 12/24/22 melatonin 10 mg capsule 10 mg PO BEDTIME 12/24/22 metoprolol succinate 100 mg 100 mg PO DAILY 12/24/22 tablet,extended release 24 hr multivitamin with folic acid 400 1 tab PO ONCE 12/24/22 mcg tablet (Daily-Maria Elena (with folic acid)) Previous Rx's ?Medication ?Instructions ?Recorded cefuroxime axetil 500 mg tablet 500 mg PO BID 7 days #14 tabs 01/22/24 phenazopyridine 100 mg tablet 100 mg PO TID PRN pain (scale 01/22/24 (Pyridium) score 4-6) 6 doses #6 tabs naproxen 500 mg tablet 500 mg PO BID #14 tabs 08/01/24 omeprazole 40 mg capsule,delayed 40 mg PO DAILY #7 caps 08/01/24 release prednisone 20 mg tablet 20 mg PO DAILY #7 tabs 08/01/24 Allergies Allergy/AdvReac Type Severity Reaction Status Date / Time No Known Allergies Allergy Verified 08/05/24 08:02 Review of Systems 2 Constitutional: Constitutional: Reports no additional constitutional complaints Cardiovascular: Cardiovascular: Reports no additional cardiovascular complaints Musculoskeletal: Musculoskeletal: Reports no additional musculoskeletal complaints PMFSH Past Medical History Attestation statement: The following information was validated with the patient. [facility] Narrative: Essential hypertension, type 2 diabetes, gout BPH Medical History Benign prostatic hyperplasia with lower urinary tract symptoms GERD (gastroesophageal reflux disease) Social History Social History Unable to assess alcohol history related to: Unknown Alcohol intake: never Smoked in Last 30 Days: No Use of substances other than those prescribed or required for medical reasons: No Advance Directives: No Advance Directives Information Provided: Yes Do you have a plan to hurt others: No Plan Physical Exam 2 Vital Signs: Vital Signs: Last Vital Signs Temp 98.6 F 08/05/24 07:48 Pulse 110 H 08/05/24 12:42 Resp 20 08/05/24 12:23 BP 187/105 H 08/05/24 12:03 Pulse Ox 95 08/05/24 12:23 O2 Del Method Nasal Cannula 08/05/24 12:23 O2 Flow Rate 2 08/05/24 12:23 BMI result Body Mass Index 34.7 No distress comfortable in the stretcher Const: General: cooperative, comfortable, no acute distress and well developed Nutritional Appearance: average body habitus Orientation/consciousness: p atient oriented x3 Limitations: no limitations HEENT: Head: Yes normal to inspection General nose exam: Normal external nose present Face and sinus: Yes normal facial exam Neck: Neck: Yes normal visual inspection and Yes full ROM Chest: Chest palpation & inspection: normal inspection of the chest Resp: Effort & Inspection: normal respiratory effort Auscultation: clear to auscultation bilaterally Cardio: Jugular venous distension: no JVD Rate: tachycardic Rhythm: a bnormal rhythm GI: Inspection: Yes normal to inspection Palpation (GI): Soft to palpation, not firm and nontender Auscultation: normal bowel sounds Skin: General skin exam: no rashes or lesions noted, elasticity normal and turgor normal Lesions: no lesions Rashes: no rashes Trauma: no lacerations or abrasions Neuro: General: patient oriented x3 Cranial nerves: Yes CN's II-XII intact bilaterally Course Reevaluation(s) Reevaluation #1: Patient was seen in consultation by [employer] field coordinator see consult patient will be admitted with IV heparin IV amiodarone Time: 11:40 Medications Administered Generic Name Dose Route Start Last Admin Trade Name Freq PRN Reason Stop Dose Admin Diltiazem HCl 125 mg/ Sodium 125 mls @ 0 mls/hr 08/05/24 07:45 08/05/24 08:11 Chloride IVCONT Infused .Q0M SOURAV Titration Protocol Per Protocol Heparin Sodium/Sodium Chloride 25,000 unit in 250 mls @ 0 mls/hr 08/05/24 09:45 08/05/24 10:38 Heparin Sodium,Porcine/1/2ns IVCONT 10.27 units/kg/hr .Q0M SOURAV 10 mls/hr Administration Protocol Per Protocol Amiodarone HCl 900 mg/ Sodium 518 mls @ 34.533 mls/hr 08/05/24 10:00 08/05/24 10:33 Chloride IVCONT 1 mg/min .Q15H1M SOURAV 34.53 mls/hr Administration Protocol 1 MG/MIN Discontinued Medications Generic Name Dose Route Start Last Admin Trade Name Freq PRN Reason Stop Dose Admin Diltiazem HCl 15 mg 08/05/24 07:34 08/05/24 07:56 Diltiazem Hcl 50 Mg/10 Ml Vial IVPUSH 08/05/24 07:35 15 mg STAT STA Administration Amiodarone HCl 150 mg in 100 mls @ 600 mls/hr 08/05/24 09:55 08/05/24 10:31 Nexterone IV 08/05/24 10:04 Infused ONCE ONE Infusion Nitroglycerin 1 inch 08/05/24 09:56 08/05/24 10:21 Nitroglycerin 2 % Oint 1 Gm Packet TRANSDERMA 08/05/24 09:57 1 inch ONCE ONE Administration Oseltamivir Phosphate 75 mg 08/05/24 09:39 08/05/24 10:24 Oseltamivir Phosphate 75 Mg Capsule PO 08/05/24 09:40 75 mg ONCE ONE Administration Medical Decision Making Medical Decision Making [facility] Narrative: Patient presented to the emergency department with a chief complaint of palpitation and chest pain. We will obtain EKG troponin Differential Diagnosis Differential Diagnoses: The differential diagnosis associated with the presentation includes ACS/non cardiac chest pain/AFib flutter Admission/Observation Consideration of admission/observation: Escalation of care including admission/observation considered Consult Healthcare Provider Management of the patient was discussed with: Hospitalist and Patent Clerk Lab Data MDM Lab Attestation statement: I reviewed the patient's lab results. 08/05/24 10:19 08/05/24 07:46 Labs: Lab Results 08/05/24 08/05/24 08/05/24 Range/Units 07:34 07:46 10:19 WBC 11.2 H 11.8 H (4.8-10.8) X10*3/uL RBC 3.28 L 3.31 L (4.60-5.80) X10*6/uL Hgb 9.8 L 10.0 L (14.0-18.0) g/dl Hct 29.8 L 29.8 L (42.0-52.0) % MCV 90.9 90.0 (80.0-98.0) fL MCH 29.9 30.2 (27.0-33.0) pg MCHC 32.9 33.6 (31.0-36.0) g/dl RDW 13.1 13.1 (11.0-16.0) % Plt Count 364 371 (160-400) X10*3/uL MPV 10.2 9.5 (9.4-12.4) fL Immature Gran % (Auto) 0.8 H (0.0-0.4) % Neut % (Auto) 77.3 H (45-73) % Lymph % (Auto) 10.4 L (20-40) % Garden % (Auto) 8.6 (2-11) % Eos % (Auto) 2.4 (0-4) % Baso % (Auto) 0.5 (0-2) % Lymph # (Auto) 1.2 (1.2-4.9) X10*3/uL Garden # (Auto) 1.0 (0.1-1.2) X10*3/uL Eos # (Auto) 0.3 (0.0-0.4) X10*3/uL Baso # (Auto) 0.1 (0.0-0.2) X10*3/uL Abs Immat Gran (auto) 0.09 H (0.00-0.03) X10*3/uL Absolute Neuts (auto) 8.6 H (2.0-8.3) x10*3/uL Absolute Nucleated RBC 0.000 0.000 (0.0-0.012) X10*3/uL Nucleated RBC % (auto) 0.0 0.0 (0.0-0.2) /100WBC PT 12.0 12.2 (10.9-12.4) SEC INR 1.0 1.0 (0.9-1.1) APTT 27.3 (26.0-36.8) SEC aPTT Heparin Protocol 28.8 L (53-77.9) SEC Sodium 141 (135-145) mmol/L Potassium 4.1 (3.3-5.1) mmol/L Chloride 110 H (96-108) mmol/L Carbon Dioxide 19 L (22-29) mmol/L Anion Gap 16 (12-20) BUN 43 H (9-16) mg/dL Creatinine 2.46 H (0.5-1.4) mg/dL Estim Creat Clear Calc 27.9 Estimated GFR 26 Random Glucose 201 H (60-115) mg/dL Calcium 8.0 L (8.4-10.2) mg/dL Total Bilirubin 0.7 (0.0-1.0) mg/dL AST 29 (5-37) U/L ALT 16 (0-40) U/L Alkaline Phosphatase 73 (39-117) U/L Troponin I High Sens 679.0 H* 988.2 H* (<3.5-35.0) ng/L B-Natriuretic Peptide 2788 H (<100) pg/mL Total Protein 7.5 (6.5-8.0) g/dL Albumin 3.3 L (3.5-5.0) g/dL Influenza Type A (PCR) POSITIVE A (Negative) Influenza Type B (PCR) NEGATIVE (Negative) RSV RNA Qual (PCR) NEGATIVE (Negative) SARS-CoV-2 RNA (RT-PCR) NEGATIVE (Negative) Independent Interpretation I performed an independent interpretation of an: EKG Interpretation: Rapid atrial fibrillation the EKG was interpreted by me Radiology Impression Discussion of test interpretation with radiology: I have reviewed the radiologist's reading. External Record Review External record reviewed: Inpatient record Critical Care Time Critical Care Time Critical Care Time: Yes Total Critical Care Time: 60 Attestation: IV Cardizem then titration Discharge Plan Discharge Clinical Impression: Atrial fibrillation with RVR, Elevated troponin, Influenza Patient Disposition: Admitted As Inpatient
[2024-08-05 07:51] LABS: MANUAL DIFF FLAG NO
[2024-08-05] MEDS: dilTIAZem HCL 50 MG/10 ML VIAL 15 MG IVPUSH (07:56)
[2024-08-05] MEDS: dilTIAZem HCL 125 MG in 0.9 % Sodium Chloride 100 ML 10 MG IVCONT (07:57)
[2024-08-05 08:00] LABS: Basophils Absolute Auto 0.1 X10*3/uL (0.0-0.2); Basophils Percent Auto 0.5 % (0-2); Eosinophils Absolute Auto 0.3 X10*3/uL (0.0-0.4); Eosinophils Percent Auto 2.4 % (0-4); Hematocrit 29.8 % (42.0-52.0); Hemoglobin 9.8 g/dl (14.0-18.0); Imm Gran Abs Auto 0.09 X10*3/uL (0.00-0.03); Imm Gran Pct Auto 0.8 % (0.0-0.4); Lymphocytes Absolute Auto 1.2 X10*3/uL (1.2-4.9); Lymphocytes Percent Auto 10.4 % (20-40); Mean Corpuscular HGB Conc 32.9 g/dl (31.0-36.0); Mean Corpuscular Hemoglobin 29.9 pg (27.0-33.0); Mean Corpuscular Volume 90.9 fL (80.0-98.0); Mean Platelet Volume 10.2 fL (9.4-12.4); Monocytes Percent Auto 8.6 % (2-11); Neutrophils Absolute Auto 8.6 x10*3/uL (2.0-8.3); Neutrophils Percent Auto 77.3 % (45-73); Platelet Count 364 X10*3/uL (160-400); Red Blood Count 3.28 X10*6/uL (4.60-5.80); Red Cell Distribution Width 13.1 % (11.0-16.0); White Blood Count 11.2 X10*3/uL (4.8-10.8)
[2024-08-05 08:06] LABS: Alanine Aminotransferase 16 U/L (0-40); Albumin Level 3.3 g/dL (3.5-5.0); Alkaline Phosphatase 73 U/L (39-117); Anion Gap 16 (12-20); Aspartate Amino Transferase 29 U/L (5-37); Bilirubin Total 0.7 mg/dL (0.0-1.0); Blood Urea Nitrogen 43 mg/dL (9-16); Carbon Dioxide 19 mmol/L (22-29); Chloride 110 mmol/L (96-108); Creatinine Clr Calc Pharmacy 27.9; Estimated Glomerular Filt Rate 26; Glucose Random 201 mg/dL (60-115); Potassium 4.1 mmol/L (3.3-5.1); Sodium 141 mmol/L (135-145); Total Protein 7.5 g/dL (6.5-8.0)
--- NOTE | 2024-08-05 08:07 | ECG_ITS ---
Test Reason : chest pain Blood Pressure : */* mmHG Vent. Rate : 77 BPM Atrial Rate : 77 BPM P-R Int : 166 ms QRS Dur : 102 ms QT Int : 422 ms P-R-T Axes : 41 34 211 degrees QTcB Int : 477 ms Normal sinus rhythm Left ventricular hypertrophy with repolarization abnormality ( Sokolow-Neal ) Abnormal ECG When compared with ECG of 05-Aug-2024 07:16, Sinus rhythm has replaced Atrial fibrillation Vent. rate has decreased by 49 bpm Criteria for Anterior infarct are no longer Present Referred By: Van Akins Electronically Signed By: FRANCA PATEL MD
[2024-08-05 08:17] LABS: Partial Thromboplastin Time 27.3 SEC (26.0-36.8)
[2024-08-05 08:20] LABS: Influenza A PCR POSITIVE (Negative); Influenza B PCR NEGATIVE (Negative); Resp Syncy Virus RNA Qual PCR NEGATIVE (Negative); SARS COV2 PCR INHOUSE NEGATIVE (Negative)
--- OUTSIDE RECORDS SUMMARY | 2024-08-05 08:21 | XMS_ITS | Encounter Summary ---
Author Organization [employer] Address [address] [facility] 7t [place] [address] Care Team Providers Care Outside Food Server Name Role Phone Uma Chung MD Primary Care Provide r Reason for Visit * Reason Onset Date Comments Appointment Request 10/25/2022 Encounter Details Date Type Department Care Team ([facility] st Contact Info) Description 10/25/2022 Telephone [facility] MEDICINE [address] [place] [address] Uma Chung MD [address] [place], [place] [phone] Appointment Request Social History Tobacco Use Types [...] requesting to r/s appt for 10/26/2022 of [facility] Please contact pt son at [phone] documented in this encounter Plan of Treatment Upcoming Encounters Date Type Department Care Team (Late st Contact Info) Description 08/18/2024 1:30 PM EDT Telemedicine [facility] MEDICINE [address] [place] [address] Emi Harrell, LAINA 11/12/2024 1:00 PM EDT Office Visit [facility] OPTOMETRY [address] [place] [address] Atiya Samuel, OD [address] [place] [address] documented as of this encounter Visit Diagnoses Not on filedocumented in this encounter Care Teams Outside Food Server Relationship Specialty Start Date End Date Uma Chung MD [address] [place] [address] PCP - General Family Medicine 02/21/18 documented as of this encounter
--- OUTSIDE RECORDS SUMMARY | 2024-08-05 08:21 | XMS_ITS | Encounter Summary ---
Author Organization [employer] Address [address] [facility] [address] 7[address] [place] [address] Care Team Providers Care Site Director Name Role Phone Uma Chung MD Primary Care Provide r Encounter Details Date Type Department Care Team ([facility] st Contact Info) Description 03/21/2023 Orders Only [facility] CHC MED & PEDS [address] [place], [place] [phone] Lay Grimaldo LPN Social History Tobacco Use [...] Info) Description 08/18/2024 1:30 PM EDT Telemedicine [facility] MEDICINE [address] [place] [address] Emi Harrell RN 11/12/2024 1:00 PM EDT Office Visit [facility] OPTOMETRY [address] [place], [place] [phone] Atiya Samuel, OD [address] [place] [address] documented as of this encounter Visit Diagnoses Not on filedocumented in this encounter Additional Health Concerns Assessment Noted Time PHQ-9 Depression Total Score: 0 12/13/19 23 10:21 AM EDT documented as of this encounter Care Teams Site Director Relationship Specialty Start Date End Date Uma Chung MD [address] [place] [address] PCP - General Family Medicine 02/21/18 documented as of this encounter
--- OUTSIDE RECORDS SUMMARY | 2024-08-05 08:21 | XMS_ITS | Encounter Summary ---
Author Organization [employer] Address [address] [facility] 7t [place] [address] Care Team Providers Care Windows Desktop Support Name Role Phone Uma Chung MD Primary Care Provide r Reason for Visit * Reason Onset Date Comments Med Refill 03/15/2023 Encounter Details Date Type Department Care Team (Late st Contact Info) Description 03/15/2023 Refill [facility] MEDICINE [address] [place], [place] [phone] Uma Chung MD [address] [place], [place] [phone] Osteoarthritis involving multiple joints on both sides [...] - 03/15/2023 12:00 PM EDT TC to [facility] pharmacy, spoke with Ema, confirmed that Percocet from 03/13/23 was not dispensed.Requested RX be cancelled. * Telephone Encounter - Meg Castelan - 03/15/2023 11:34 AM EDT Tc from son requesting new script to be send to [facility], son stated [facility] has blue pills and pt wants white ones. documented in this encounter Plan of Treatment Upcoming Encounters Date Type Department Care Team (Late st Contact Info) Description 08/18/2024 1:30 PM EDT Telemedicine [facility] MEDICINE [address] [place] [address] Emi Harrell RN 11/12/2024 1:00 PM EDT Office Visit [facility] OPTOMETRY [address] [place], [place] [phone] Atiya Samuel, OD [address] [place] [address] documented as of this encounter Visit Diagnoses Diagnosis Osteoarthritis involving multiple joints on both sides of body documented in this encounter Additional Health Concerns Assessment Noted Time PHQ-9 Depression Total Score: 0 07/12/20 23 10:21 AM EDT documented as of this encounter Care Teams Windows Desktop Support Relationship Specialty Start Date End Date Uma Chung MD [address] [place] [address] PCP - General Family Medicine 02/21/18 documented as of this encounter
--- OUTSIDE RECORDS SUMMARY | 2024-08-05 08:21 | XMS_ITS | Encounter Summary ---
Author Organization [employer] Address [address] [facility] [address] 7[address] [place] [address] Care Team Providers Care Benefits Manager Name Role Phone Uma Chung MD Primary Care Provide r Encounter Details Date Type Department Care Team ([facility] st Contact Info) Description 07/16/2024 Orders Only [facility] MEDICINE [address] [place], [place] [phone] Uma Chung MD [address] [place] [address] Social History Tobacco Use Types Packs/Day Years [...] Info) Description 08/18/2024 1:30 PM EDT Telemedicine [facility] MEDICINE [address] [place] [address] Emi Harrell RN 11/12/2024 1:00 PM EDT Office Visit [facility] OPTOMETRY [address] [place] [address] Jimmie, Atiya, OD [address] [place] [address] documented as of this encounter Visit Diagnoses Not on filedocumented in this encounter Additional Health Concerns Assessment Noted Time PHQ-9 Depression Total Score: 4 05/06/20 24 9:16 AM EST documented as of this encounter Care Teams Benefits Manager Relationship Specialty Start Date End Date Uma Chung MD [address] [place] [address] PCP - General Family Medicine 02/21/18 documented as of this encounter
--- OUTSIDE RECORDS SUMMARY | 2024-08-05 08:21 | XMS_ITS | Encounter Summary ---
Author Organization [employer] Address [address] [facility] [address] [place] [address] Care Team Providers Care Drilling Field Specialist Name Role Phone Uma Chung MD Primary Care Provide r Reason for Visit * Reason Comments Med Refill Encounter Details Date Type Department Care Team (Late Contact Info) Description 03/01/2023 Refill [facility] MEDICINE [address] [place], [place] [phone] Uma Chung MD [address] [place], [place] [phone] Other chronic pain Social History Tobacco Use [...] Department Care Team (Late Contact Info) Description 08/18/2024 1:30 PM EDT Telemedicine [facility] MEDICINE [address] [place] [address] Emi Harrell RN 11/12/2024 1:00 PM EDT Office Visit [facility] OPTOMETRY [address] [place], [place] [phone] Jimmie, Atiya, OD [address] [place], [place] [phone] documented as of this encounter Visit Diagnoses Diagnosis Other chronic pain documented in this encounter Additional Health Concerns Assessment Noted Time PHQ-9 Depression Total Score: 0 12/13/19 23 10:21 AM EDT documented as of this encounter Care Teams Drilling Field Specialist Relationship Specialty Start Date End Date Uma Chung MD [address] [place], [place] [phone] PCP - General Family Medicine 02/21/18 documented as of this encounter
--- OUTSIDE RECORDS SUMMARY | 2024-08-05 08:21 | XMS_ITS | Encounter Summary ---
Author Organization [email or web address] Address [address] [facility] 7t [place] [address] Care Team Providers Care Banking Pin Adjuster Name Role Phone Uma Chung MD Primary Care Provide r Reason for Visit * Reason Onset Date Comments Med Refill 01/10/2023 Encounter Details Date Type Department Care Team ([facility] st Contact Info) Description 01/10/2023 Telephone [facility] MEDICINE [address] [place] [address] Uma Chung MD [address] [place] [address] Med Refill Social History Tobacco Use Types [...] Info) Description 08/18/2024 1:30 PM EDT Telemedicine [facility] MEDICINE [address] [place] [address] Emi Harrell, LAINA 11/12/2024 1:00 PM EDT Office Visit [facility] OPTOMETRY [address] [place], [place] [phone] Atiya Samuel, OD [address] [place] [address] documented as of this encounter Visit Diagnoses Not on filedocumented in this encounter Additional Health Concerns Assessment Noted Time PHQ-9 Depression Total Score: 0 12/13/19 23 10:21 AM EDT documented as of this encounter Care Teams Banking Pin Adjuster Relationship Specialty Start Date End Date Uma Chung MD [address] [place] [address] PCP - General Family Medicine 02/21/18 documented as of this encounter
--- OUTSIDE RECORDS SUMMARY | 2024-08-05 08:21 | XMS_ITS | Encounter Summary ---
Author Organization [employer] Address [address] [facility] 7t [place] [address] Care Team Providers Care Machine Taper Name Role Phone Uma Chung MD Primary Care Provide r Encounter Details Date Type Department Care Team (Late st Contact Info) Description 02/06/2023 Orders Only [facility] CHC MED & PEDS [address] [place], [place] [phone] Lay Grimaldo LPN Social History Tobacco Use [...] Info) Description 08/18/2024 1:30 PM EDT Telemedicine [facility] MEDICINE [address] [place], [place] [phone] Emi Harrell RN 11/12/2024 1:00 PM EDT Office Visit [facility] OPTOMETRY [address] [place], [place] [phone] Atiya Samuel, OD [address] [place], [place] [phone] documented as of this encounter Visit Diagnoses Not on filedocumented in this encounter Additional Health Concerns Assessment Noted Time PHQ-9 Depression Total Score: 0 12/13/19 23 10:21 AM EDT documented as of this encounter Care Teams Machine Taper Relationship Specialty Start Date End Date Uma Chung MD [address] [place] [address] PCP - General Family Medicine 02/21/18 documented as of this encounter
--- OUTSIDE RECORDS SUMMARY | 2024-08-05 08:21 | XMS_ITS | Clinical Summary ---
Author Organization [facility] Address [address] [place] [phone] Phone Care Team Providers Care Director Community Organization Name Role Phone Uma Chung MD Primary [...] % PVNMA 03/29/2020 us [facility] [id number] LICITED RESULTS Final Result PVNMA from Last 3 Months or Most Recently Relevant to Health Maintenance Insurance COUNTS INCLUDE 234 BEDS AT THE [facility] COUNTS INCLUDE 234 BEDS AT THE [facility] [place] [id number] [address] [place] [id number] Care Teams Director Community Organization Relationship Specialty Start Date End Date Uma Chung MD [address] [place] [address] [place] [phone] PCP - General 06/13/20
--- OUTSIDE RECORDS SUMMARY | 2024-08-05 08:21 | XMS_ITS | Encounter Summary ---
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 sides [...] Info) Description 08/18/2024 1:30 PM EDT Telemedicine [facility] MEDICINE [address] [place] [address] Emi Harrell RN 11/12/2024 1:00 PM EDT Office Visit [facility] OPTOMETRY [address] [place] [address] Jimmie, Atiya, OD [address] [place] [address] documented as of this encounter Visit Diagnoses Diagnosis Osteoarthritis involving multiple joints on both sides of body documented in this encounter Additional Health Concerns Assessment Noted Time PHQ-9 Depression Total Score: 0 12/13/19 23 10:21 AM EDT documented as of this encounter Care Teams Works Manager Relationship Specialty Start Date End Date Uma Chung MD [address] [place] [address] PCP - General Family Medicine 02/21/18 documented as of this encounter
--- OUTSIDE RECORDS SUMMARY | 2024-08-05 08:21 | XMS_ITS | Encounter Summary ---
Author Organization [employer] Address [address] [facility] 7t [place] [address] Care Team Providers Care Consulting Business Developer Name Role Phone Uma Chnug MD Primary Care Provide r Reason for Visit * Reason Onset Date Comments Nurse Triage 01/14/2024 Encounter Details Date Type Department Care Team ([facility] st Contact Info) Description 01/14/2024 Telephone [facility] MEDICINE [address] [place] [address] Uma Chung MD [address] [place], [place] [phone] Nurse Triage Social History Tobacco Use Types [...] Info) Description 08/18/2024 1:30 PM EDT Telemedicine [facility] MEDICINE [address] [place], [place] [phone] Emi Harrell RN 11/12/2024 1:00 PM EDT Office Visit [facility] OPTOMETRY [address] [place], [place] [phone] Atiya Samuel, OD [address] [place] [address] documented as of this encounter Visit Diagnoses Not on filedocumented in this encounter Additional Health Concerns Assessment Noted Time PHQ-9 Depression Total Score: 0 12/13/19 23 10:21 AM EDT documented as of this encounter Care Teams Consulting Business Developer Relationship Specialty Start Date End Date Uma Chung MD [address] [place] [address] PCP - General Family Medicine 02/21/18 documented as of this encounter
--- OUTSIDE RECORDS SUMMARY | 2024-08-05 08:21 | XMS_ITS | Encounter Summary ---
Author Organization [employer] Address [address] [facility] 7t [place] [address] Care Team Providers Care Coating Mixer Name Role Phone Uma Chung MD Primary Care Provide r Encounter Details Date Type Department Care Team (Late st Contact Info) Description 02/08/2023 Orders Only [facility] MEDICINE [address] [place] [phone] Provider, MD Nathan Social History Tobacco Use [...] Info) Description 08/18/2024 1:30 PM EDT Telemedicine [facility] MEDICINE [address] [place], [place] [phone] Emi Harrell RN 11/12/2024 1:00 PM EDT Office Visit [facility] OPTOMETRY [address] [place], [place] [phone] Atiya Samuel, OD [address] [place], [place] [phone] documented as of this encounter Procedures Procedure [...] documented as of this encounter Care Teams Coating Mixer Relationship Specialty Start Date End Date Uma Chung MD [address] [place] [address] PCP - General Family Medicine 02/21/18 documented as of this encounter
--- OUTSIDE RECORDS SUMMARY | 2024-08-05 08:22 | XMS_ITS | Encounter Summary ---
Author Organization [employer] Address [address] [facility] [address] 7t [place] [address] Care Team Providers Care Bull Chain Operator Name Role Phone Uma Chung MD Primary Care Provide r Encounter Details Date Type Department Care Team ([facility] st Contact Info) Description 05/14/2023 Orders Only [facility] CHC MED & PEDS [address] [place], [place] [phone] Chelly Holloway LPN Social History Tobacco Use [...] Info) Description 08/18/2024 1:30 PM EDT Telemedicine [facility] MEDICINE [address] [place] [address] Emi Harrell RN 11/12/2024 1:00 PM EDT Office Visit [facility] OPTOMETRY [address] [place], [place] [phone] Atiya Samuel, OD 230 [place] [address] documented as of this encounter Visit Diagnoses Not on filedocumented in this encounter Additional Health Concerns Assessment Noted Time PHQ-9 Depression Total Score: 0 12/13/19 23 10:21 AM EDT documented as of this encounter Care Teams Bull Chain Operator Relationship Specialty Start Date End Date Uma Chung MD 230 [place] [address] PCP - General Family Medicine 02/21/18 documented as of this encounter
--- OUTSIDE RECORDS SUMMARY | 2024-08-05 08:22 | XMS_ITS | Clinical Summary ---
Author Organization [employer] Address [address] [place] [address] Care Team Providers Care Computer Repairer Name Role Phone Uma Chung MD Primary [...] 2024 Active Blood Glucose Monitoring Suppl (FreeStyle [place] Lite) w/Device kit Use to check BS [...] palpation ,no purulent discharge seen -Seen by executive producer in 11/07/2023 dxed w Mild nonproliferative diabetic [...] Encounters Date Type Department Care Team Description 08/05/2024 Orders Only GENERIC EXTERNAL DATA DEPARTMENT Provider, Generic External Data 08/01/2024 Orders Only GENERIC EXTERNAL DATA DEPARTMENT Provider, Generic External Data 07/31/2024 Telephone [facility] [address] [place] [address] Uma Chung MD Nurse Triage 07/22/2024 Refill [facility] [address] [place] [address] Uma Chung MD Erectile dysfunction, unspecified erectile dysfunction type 07/16/2024 Orders Only [facility] [address] [place] [address] Uma Chung MD 07/14/2024 Refill [facility] [address] [place] [address] Uma Chung MD Erectile dysfunction, unspecified erectile dysfunction type 07/14/2024 Refill [facility] [address] [place] [address] Uma Chung MD Osteoarthritis involving multiple joints on both sides of body 06/25/2024 Refill [facility] [address] [place] [address] Uma Chung MD Gastroesophageal reflux disease, unspecified whether esophagitis present 06/24/2024 Refill [facility] [address] [place] [address] Uma Chung MD 06/17/2024 Refill [facility] [address] [place] [address] Uma Chung MD 06/15/2024 Refill [facility] [address] [place] [address] Uma Chung MD Osteoarthritis involving multiple joints on both sides of body 06/15/2024 Refill [facility] [address] [place] [address] Uma Chung MD Erectile dysfunction, unspecified erectile dysfunction type; Osteoarthritis involving multiple joints on both sides of body 06/15/2024 Telephone [facility] [address] [place] [address] Uma Chung MD Med Refill 06/12/2024 Refill [facility] [address] [place] [address] Uma Chung MD Osteoarthritis involving multiple joints on both sides of body; Erectile dysfunction, unspecified erectile dysfunction type 06/08/2024 1:30 PM EST Office Visit [facility] [address] [place] [phone] Uma Chung MD Essential hypertension (Primary Dx); Type 2 diabetes mellitus without complication, without long-term current use of insulin ([facility]) 06/08/2024 Travel 06/02/2024 Patient Outreach [address] [phone] Uma Chung MD Pre-visit Planning (SDOH screening negative and tobacco screening negative) 05/22/2024 10:30 AM EST Telemedicine [facility] [address] [place] [address] Emi Harrell RN Other chronic pain 05/22/[address] [phone] Emi Harrell RN [employer] Renewal today 05/22/2024 Refill [facility] [address] [place] [phone] Uma Chung MD Hyperlipidemia, unspecified hyperlipidemia type 05/22/2024 Travel 05/22/2024 Telephone [facility] [address] [place] [address] Emi Harrell, LAINA Recommend Tele [employer] Tier 2 05/18/2024 Telephone [facility] [address] [place], [place] [phone] Uma Chung MD Durable Medical Equipment 05/11/2024 Refill [facility] [address] [place] [address] Uma Chung MD Erectile dysfunction, unspecified erectile dysfunction type 05/11/2024 Refill [facility] [address] [place] [address] Uma Chung MD Osteoarthritis involving multiple joints on both sides of body from Last 3 Months Immunizations Name Administration [...] Info) Description 08/18/2024 1:30 PM EDT Telemedicine [facility] [address] [place], [place] [phone] Emi Harrell RN 11/12/2024 1:00 PM EDT Office Visit [facility] [address] [place], [place] [phone] Atiya Samuel, OD [address] [place] [address] Health Maintenance Due Date Last Done Comments [...] Additional history exists Eye Exam 11/06/2024 11/07/2023, 06/0 11/2023, 11/07/2023, Additional history exists Depression Screening 05/06/2025 [...] Procedure Name Priority Date/Time Associated Diagnosis Comments HIGH SENSITIVITY TROPONIN I Routine 08/05/2024 7:46 AM EST APTT Routine 08/05/2024 7:46 AM EST PROTHROMBIN TIME-INR Routine 08/05/2024 7:46 AM EST COMPREHENSIVE METABOLIC PANEL Routine 08/05/2024 7:46 AM EST CBC WITH AUTO DIFFERENTIAL Routine 08/05/2024 7:46 AM EST SARS COV2/INFLUENZA A/B AND RSV RNA QL NAAT Routine 08/05/2024 7:34 AM EST XR CHEST 1 VIEW Routine 08/05/2024 7:29 AM EST XR ANKLE 3+ VIEWS LEFT Routine 12:14 PM EST XR FOOT 3+ VIEWS [...] complication, without long-term current use of insulin (CMS/HCC) POCT GLYCATED HEMOGLOBIN, TOTAL Routine 05/06/2024 9:20 AM EST Type 2 diabetes mellitus without complication, without long-term current use of insulin (CMS/HCC) PANORAMIC RADIOGRAPHIC IMAGE Routine 09/26/2022 11:30 AM EDT PERIODIC ORAL EVALUATION - ESTABLISHED PATIENT Routine 09/26/2022 11:30 AM EDT ZZZ HISTORICAL LIPID PANEL Routine 2021 8:18 AM EST HM COLONOSCOPY Routine 08/07/2011 from Last 3 Months or Most Recently Relevant to Health Maintenance Results * (ABNORMAL) High Sensitivity Troponin I (08/05/2024 7:46 AM EST) [facility] TROPONIN I HIGH SENSITIVITY 679.0(HH) <3.5 - 35.0 ng/L [facility] Comment:Critical value for H S-TnI: Results called to and read kentrell NAVARRO Person calling: AASHISH Date: 08/05/24 Time: 0817The Coles high sensitivity Troponin-I results should beused in conjunction with other diagnostic information suchas ECG, clinical observations and information, and patientsymptoms to aid in the diagnosis of SC. 08/05/2024 7:46 AM EST 08/05/2024 7:50 AM EST us Generic External Data Provider LAB BLOOD ORDERAB LES Final Result [facility] [address] [place] [phone] * (ABNORMAL) CBC auto differential (08/05/2024 7:46 AM EST) Only the most recent of2 resultswithin the time period is included. Pathologist [facility] White Blood Count 11.2(H) 4.8 - 10.8 X10*3/uL [facility] Red Blood Count 3.28(L) 4.60 - 5.80 X10*6/uL [facility] Hemoglobin 9.8(L) 14.0 - 18.0 g/dl [facility] Hematocrit 29.8(L) 42.0 - 52.0 % [facility] Mean Corpuscular Volume 90.9 80.0 - 98.0 fL [facility] Mean Corpuscular Hemoglobin 29.9 27.0 - 33.0 pg [facility] Mean Corpuscular HGB Conc 32.9 31.0 - 36.0 g/dl [facility] Red Cell Distribution Width 13.1 11.0 - 16.0 % [facility] Platelet Count 364 160 - 400 X10*3/uL [facility] Mean Platelet Volume 10.2 9.4 - 12.4 fL [facility] Neutrophils Percent Auto 77.3(H) 45 - 73 % [facility] Imm Gran Pct Auto 0.8(H) 0.0 - 0.4 % [facility] Lymphocytes Percent Auto 10.4(L) 20 - 40 % [facility] Monocytes Percent Auto 8.6 2 - 11 % [facility] Eosinophils Percent Auto 2.4 0 - 4 % [facility] Basophils Percent Auto 0.5 0 - 2 % [facility] NRBC Pct Auto 0.0 0.0 - 0.2 /100WBC [facility] Neutrophils Absolute Auto 8.6(H) 2.0 - 8.3 x10*3/uL [facility] Imm Gran Abs Auto 0.09(H) 0.00 - 0.03 X10*3/uL [facility] Lymphocytes Absolute Auto 1.2 1.2 - 4.9 X10*3/uL [facility] Monocytes Absolute Auto 1.0 0.1 - 1.2 X10*3/uL [facility] Eosinophils Absolute Auto 0.3 0.0 - 0.4 X10*3/uL [facility] Basophils Absolute Auto 0.1 0.0 - 0.2 X10*3/uL [facility] NRBC Abs Auto 0.000 0.0 - 0.012 X10*3/uL [facility] 08/05/2024 7:46 AM EST 08/05/2024 7:50 AM EST us Generic External Data Provider LAB BLOOD ORDERAB LES Final Result Performing Organization Address [facility] Co de Phone Number [facility] [address] [place] [phone] * Partial Thromboplastin Time, Activated (APTT) (08/05/2024 7:46 AM EST) Partial Thromboplastin Time 27.3 26.0 - 36.8 SEC [facility] Comment:For information rega rding the monitoring of direct thrombininhibitors, please refer to Pharmacy. 08/05/2024 7:46 AM EST 08/05/2024 7:50 AM EST Generic External Data Provider LAB BLOOD ORDERAB LES Final Result Performing Organization Address [facility] Co de Phone Number [facility] [address] [place] [phone] * Prothrombin Time-INR (08/05/2024 7:46 AM EST) Prothrombin Time 12.0 10.9 - 12.4 SEC [facility] INTERNATIONAL NORM RATIO 1.0 0.9 - 1.1 [facility] Comment:INTERNATIONAL NORMAL IZED RATIO (INR) REFERENCE RANGES Reference RangeFor patients not on anticoagulant therapy: 0.9 - 1.1INR ranges for oral anticoagulanttherapy:For prevention and treatment of venous thrombosis and pulmonary embolism: 2.0 - 3.0For acute myocardial infarction with aspirin therapy: 2.0 - 3.0For acute myocardial infarction without aspirin therapy: 3.0 - 4.0For patients with mechanical prosthetic heart valves: 2.5 - 3.5 08/05/2024 7:46 AM EST 08/05/2024 7:50 AM EST us Generic External Data Provider LAB BLOOD ORDERAB LES Final Result Performing Organization Address [facility] Co de Phone Number [facility] [address] [place] [phone] * (ABNORMAL) Comprehensive Metabolic Panel (08/05/2024 7:46 AM EST) Sodium 141 135 - 145 mmol/L [facility] Potassium 4.1 3.3 - 5.1 mmol/L [facility] Chloride 110(H) 96 - 108 mmol/L [facility] Carbon Dioxide 19(L) 22 - 29 mmol/L [facility] Anion Gap 16 12 - 20 [facility] Urea Nitrogen (BUN) 43(H) 9 - 16 mg/dL [facility] Creatinine, Serum 2.46(H) 0.5 - 1.4 mg/dL [facility] Creatinine Clr Calc Pharmacy 27.9 [facility] Comment:eGFR (calculated fro m the MDRD study equation) and eCrCl(calculated from the Cockcroft-Gault equation) are based ondifferent parameters and may not yield comparable results.If eCrCl result is absurd, please check patient'sheight/weight. Estimated Glomerular Filt Rate 26 [facility] Comment:Chronic Kidney Disea se: Estimated GFR < 60 mL/min/1.60k7Peseuu Kidney Disease: Estimated GFR < 15 mL/min/1.73m2 Glucose 201(H) 60 - 115 mg/dL [facility] Calcium 8.0(L) 8.4 - 10.2 mg/dL [facility] Bilirubin, Total 0.7 0.0 - 1.0 mg/dL [facility] Aspartate Amino Transferase 29 5 - 37 U/L [facility] Alanine Aminotransferase 16 0 - 40 U/L [facility] Total Protein 7.5 6.5 - 8.0 g/dL [facility] Albumin Level 3.3(L) 3.5 - 5.0 g/dL [facility] Alkaline Phosphatase 73 39 - 117 U/L [facility] 08/05/2024 7:46 AM EST 08/05/2024 7:50 AM EST Generic External Data Provider LAB BLOOD ORDERAB LES Final Result Performing Organization Address [facility] de Phone Number [facility] [address] [place] [phone] * (ABNORMAL) SARS-CoV-2 RNA, Influenza A/B, and RSV RNA, Ql NAAT (08/05/2024 7:34 AM EST) Influenza A PCR POSITIVE(A) Negative [facility] Influenza B PCR NEGATIVE Negative [facility] Resp Syncy Virus RNA Qual PCR NEGATIVE Negative [facility] SARS COV2 PCR NEGATIVE Negative [facility] Comment:All test results mus t be correlated with clinical findings.Negative results do not preclude SARS-CoV2, influenza Avirus, influenza B virus and/or RSV infectionand should not be used as the sole basis for treatment orother patient management decisions. Negative results must becombined with clinical observations, patient history, andepidemiological information.This test has not been evaluated for monitoring treatment ofinfection.This test has been authorized by the FDA under an EmergencyUse Authorization (EUA) for use by authorized laboratories.Testing performed on the [employer] GeneXpert utilizingreal-time RT-PCR.All SARS CoV2 and positive influenza A/B results arereported to [facility]. 08/05/2024 7:34 AM EST 08/05/2024 7:38 AM EST Generic External Data Provider LAB MICROBIOLOGY - GENERAL ORDERABLES Final Result Performing Organization Address [facility] Co de Phone Number [facility] [address] [place] [phone] * XR Chest 1 View (08/05/2024 7:29 AM EST) Anatomical Region Laterality Modality Chest Radiographic Renetta ging 08/05/2024 7:29 AM EST Narrative 08/05/2024 8:05 AM EST ? [facility] [facility] ?[address] ?[place] [address] ?XRay Report ? Signed ? Patient: Delio,Rohit ?MR#: [id number] ?? 87 ? : 1950 ?Acct:[id number] ? Age/Sex: 74 / M ?ADM Date: 08/05/24 ? Loc: HO.ED ? Attending Dr: ? Ordering Physician: Van Akins MD ?? Date of Service: 08/05/24 ?? Procedure(s): XR chest 1V ?? Accession Number(s): [id number] ? cc: Uma Chung MD; Van Akins MD ? EXAMINATION: ?? XR CHEST ? CLINICAL INFORMATION: ?? chest pain ? COMPARISON: ?? April 17, 2024. ? TECHNIQUE: ?? Frontal view of the chest was obtained. ? FINDINGS: ?? Bilateral multifocal patchy opacities extending from the pulmonary ?? hilum to the periphery more conspicuous in the right side. ?? Haziness in the right lower hemithorax and blunting of the right ?? costophrenic angle. ?? No pneumothorax. ?? Cardiomediastinal silhouette size is mildly prominent, unchanged. ?? Vascular clips overlapping the right upper hemithorax. ?? 3 mm calcified nodule right upper hemithorax. ?? Multilevel thoracic spondylosis. ? XR/XR chest 1V ?? IMPRESSION: ?? Consider pulmonary edema in the correct clinical settings with small to ?? moderate volume right-sided pleural effusion. ?? Granuloma, right upper lung lobe. ? Electronically signed by: ??Pranav Frye MD ??08/05/2024 08:02 AM ?? EST RP ? Dictated By: ?Pranav Yarbrough MD ? Signed By: ?<Electronically signed by Pranav Kebede MD in OV> ? 08/05/24 0802 ? DD/ 8 ? TD/TT: 08/05/24 0757 ? Plastic Worker: ? Procedure Note Gonzales Pham - 08/05/[address] [address] XRay Report Signed Patient: Phil Kebede AMR#: [id number] [birth year] : 8Acct:[id number] Age/Sex: 74 / MADM Date: 08/05/24 Loc: HO.ED Attending Dr: Ordering Physician: Van Akins MD Date of Service: 08/05/24 Procedure(s): XR chest 1V Accession Number(s): [id number] cc: Uma Cuhng MD; Van Akins MD EXAMINATION: XR CHEST CLINICAL INFORMATION: chest pain COMPARISON: April 17, 2024. TECHNIQUE: Frontal view of the chest was obtained. FINDINGS: Bilateral multifocal patchy opacities extending from the pulmonary hilum to the periphery more conspicuous in the right side. Haziness in the right lower hemithorax and blunting of the right costophrenic angle. No pneumothorax. Cardiomediastinal silhouette size is mildly prominent, unchanged. Vascular clips overlapping the right upper hemithorax. 3 mm calcified nodule right upper hemithorax. Multilevel thoracic spondylosis. XR/XR chest 1V IMPRESSION: Consider pulmonary edema in the correct clinical settings with small to moderate volume right-sided pleural effusion. Granuloma, right upper lung lobe. Electronically signed by: Pranav Frye MD 08/05/2024 08:02 AM EST RP Dictated By: Pranav Yarbrough MD Signed By: <Electronically signed by Pranav Kebede MDin OV> 08/05/24 0802 DD/ 0729 TD/TT: 08/05/24 0757 Plastic Worker: [facility] External Provider IMG XR PROCEDURES Edited Result - Final * XR Foot 3+ Views Left (08/01/2024 12:14 PM EST) Anatomical Region Laterality Modality Lower Extremities, Foot Left Radiogra phic Imaging 08/01/2024 12:1 4 PM EST Narrative 08/01/2024 12:15 PM EST ? [facility] ?[address] ?[place] [address] ?XRay Report ? Signed ? Patient: Delio,Rohit ?MR#: [id number] ?? 87 ? : 1950 ?Acct:[id number] ? Age/Sex: 74 / M ?ADM Date: 03//25 ? Loc: HO.ED ? Attending Dr: ? Ordering Physician: Audra Ferrer ?? Date of Service: 08/01/24 ?? Procedure(s): XR foot LT min 3V ?? Accession Number(s): [id number] ? cc: Uma Chung MD; Audra Ferrer [...] DD/ 1214 ? TD/TT: 08/01/24 1214 ? Plastic Worker: ? Procedure Note Vero, Image - 08/01/[address] [address] XRay Report Signed Patient: Phil Kebede AMR#: [id number] [birth year] : 8Acct:[id number] Age/Sex: 74 / MADM Date: 08/01/24 Loc: HO.ED Attending Dr: Ordering Physician: Audra Ferrer Date of Service: 08/01/24 Procedure(s): XR foot LT min 3V Accession Number(s): [id number] cc: Uma Chung MD; Audra Ferrer CLINICAL [...] 08/01/24 1215 DD/ 1214 TD/TT: 08/01/24 1214 Plastic Worker: [facility] External Provider IMG XR PROCEDURES Edited Result - Final * XR Ankle 3+ Views Left (08/01/2024 12:14 PM EST) Anatomical Region Laterality Modality Lower Extremities, Ankle Left Radiogr aphic Imaging 08/01/2024 12:1 4 PM EST Narrative 08/01/2024 12:15 PM EST ? [facility] ?[address] ?[place], [place] [address] ?XRay Report ? Signed ? Patient: Phil Kebede ?MR#: [id number] ?? 87 ? : 1950 ?Acct:[id number] ? Age/Sex: 74 / M ?ADM Date: 08/01/24 ? Loc: HO.ED ? Attending Dr: ? Ordering Physician: Audra Ferrer ?? Date of Service: 08/01/24 ?? Procedure(s): XR ankle LT min 3V ?? Accession Number(s): [id number] ? cc: Uma Chung MD; Audra Ferrer [...] by Russel Pike MD in OV> ? 08/01/245 ? DD/ 1214 ? TD/TT: 08/01/24 1214 ? Plastic Worker: ? Procedure Note Gonzales Pham - 08/01/2024 [facility] [address] [facility] [place] [place] [address] XRay Report Signed Patient: DelioPhil AMR#: [id number] [birth year] : 8Acct:[id number] Age/Sex: 74 / MADM Date: 08/01/24 Loc: HO.ED Attending Dr: Ordering Physician: Audra Ferrer Date of Service: 08/01/24 Procedure(s): XR ankle LT min 3V Accession Number(s): [id number] cc: Uma Chung MD; Audra Ferrer CLINICAL [...] 08/01/24 1215 DD/ 1214 TD/TT: 08/01/24 1214 Plastic Worker: [facility] External Provider IMG XR PROCEDURES Edited Result - Final * Slide Review (08/01/2024 11:45 AM EST) Slide Review VERIFIED [facility] 08/01/2024 11:4 5 AM EST 08/01/2024 11:48 AM EST Generic External Data Provider LAB BLOOD ORDERAB LES Final Result [facility] [address] [place] [phone] * (ABNORMAL) Sed Rate by Modified Baljeetren (08/01/2024 11:45 AM EST) Erythrocyte Sedimentation Rate 74(H) 0 - 15 MM/HR [facility] Comment:Patients with polycy themia and many hemoglobin abnormalitiesmay have depressed sed rates whereas patients with anemiamay have elevated sed rates. 08/01/2024 11:4 5 AM EST 08/01/2024 11:48 AM EST Generic External Data Provider LAB BLOOD ORDERAB LES Final Result Performing Organization Address [facility] Co de Phone Number [facility] [address] [place] [phone] * (ABNORMAL) C-reactive Protein (08/01/2024 11:44 AM EST) Pathologist [facility] C Reactive Protein 7.86(H) < or = 0.50 mg/dL [facility] 08/01/2024 11:4 4 AM EST 08/01/2024 11:48 AM EST Generic External Data Provider LAB BLOOD ORDERAB LES Final Result Performing Organization Address [facility] de Phone Number [facility] [address] [place] [address] [phone] * (ABNORMAL) Uric acid (08/01/2024 11:44 AM EST) Pathologist [facility] Uric Acid 7.8(H) 3.4 - 7.0 mg/dL [facility] 08/01/2024 11:4 4 AM EST 08/01/2024 11:48 AM EST Generic External Data Provider LAB BLOOD ORDERAB LES Final Result Performing Organization Address [facility] Co de Phone Number [facility] [address] [place] [phone] * (ABNORMAL) Basic Metabolic Panel (08/01/2024 11:44 AM EST) Sodium 142 135 - 145 mmol/L [facility] Potassium 4.3 3.3 - 5.1 mmol/L [facility] Chloride 111(H) 96 - 108 mmol/L [facility] Carbon Dioxide 21(L) 22 - 29 mmol/L [facility] Anion Gap 14 12 - 20 [facility] Urea Nitrogen (BUN) 28(H) 9 - 16 mg/dL [facility] Creatinine, Serum 2.29(H) 0.5 - 1.4 mg/dL [facility] Creatinine Clr Calc Pharmacy 30.1 [facility] Comment:eGFR (calculated fro m the MDRD study equation) and eCrCl(calculated from the Cockcroft-Gault equation) are based ondifferent parameters and may not yield comparable results.If eCrCl result is absurd, please check patient'sheight/weight. Estimated Glomerular Filt Rate 28 [facility] Comment:Chronic Kidney Disea se: Estimated GFR < 60 mL/min/1.57m8Hpkcmq Kidney Disease: Estimated GFR < 15 mL/min/1.73m2 Glucose 154(H) 60 - 115 mg/dL [facility] Calcium 8.5 8.4 - 10.2 mg/dL [facility] 08/01/2024 11:4 4 AM EST 08/01/2024 11:48 AM EST us Generic External Data Provider LAB BLOOD ORDERAB LES Final Result [facility] [address] [place] [phone] * (ABNORMAL) POCT Glucose (06/08/2024 1:14 PM EST) Glucose Blood, POC 209(A) 60 - 200 mg/dL QC Media Lot # [id number] Lot# Expiration Date Blood Capillary blood specimen / Unknown 06/08/2024 1:14 PM EST us Uma Friedman MD POINT OF CARE TEST EN TER/EDIT ORDERABLES Final Result * (ABNORMAL) POCT HGB A1C (05/06/2024 9:20 AM EST) Hemoglobin A1C 7.3(A) 4.0 - 6.0 % QC Media Lot # [id number] Lot# Expiration Date , Blood 05/06/2024 9:20 AM EST us Uma [...] liver disease. LDL Cholesterol Calculated 80 mg/dl [facility] Comment: Desirable LDL: ? less [...] Alkaline Phosphatase 105 39 - 117 U/L [facility] Aspartate Amino Transferase 27 5 - 37 U/L [facility] Bilirubin Direct 0.3 0.0 - 0.5 mg/dL [facility] Bilirubin Total 0.6 0.0 - 1.0 mg/dL [facility] Total Protein 8.1(H) 6.5 - 8.0 g/dL [facility] Vitamin D 25-OH Total 24.0 >30 ng/mL [facility] Comment: Health Based Reference Values* [...] LC-MS/MS. Anion Gap 13 12 - 20 [facility] Blood Urea Nitrogen 32(H) 9 - 16 mg/dL [facility] Calcium 9.7 8.4 - 10.2 mg/dL [facility] Carbon Dioxide 22 22 - 29 mmol/L [facility] Chloride 110(H) 96 - 108 mmol/L [facility] Creatinine, Serum 1.93(H) 0.5 - 1.4 mg/dL [facility] Estimated Glomerular Filt Rate 34 [facility] Comment: NOTE: ??For -Welsh individuals, multiply the result ?by 1.210. ?? Chronic Kidney Disease: ??Estimated GFR < 60 mL/min/1.73m2 Severe Kidney Disease: ??Estimated GFR < 15 mL/min/1.73m2 Glucose Random 168(H) 60 - 115 mg/dL [facility] Potassium 5.1 3.3 - 5.1 mmol/L [facility] Sodium 140 135 - 145 mmol/L [facility] TSH reflex Free T4 1.51 0.32 - 4.0 uIU/mL [facility] 2021 8:18 AM EST Uma Friedman MD HISTORICAL/NON ORDERA BLE LABS Final Result [facility] [address] * Hm Colonoscopy (08/07/2011) us Historical Provider HEALTH MAINTENANCE Final Result from Last 3 Months or Most Recently Relevant to Health Maintenance Insurance [facility] Care Teams Computer Repairer Relationship Specialty Start Date End Date Uma Chung MD [address] [place] [phone] PCP - General Family Medicine 02/21/18
--- OUTSIDE RECORDS SUMMARY | 2024-08-05 08:22 | XMS_ITS | Encounter Summary ---
Author Organization [employer] Address [address] 7[address] [place] [address] Care Team Providers Care Privacy Analyst Name Role Phone Uma Chung MD Primary Care Provide r Encounter Details Date Type Department Care Team ([facility] st Contact Info) Description 10/16/2023 Telephone [facility] [address] [place], [place] [phone] Uma Chung MD [address] [place], [place] [phone] Social History Tobacco Use Types Packs/Day Years [...] Info) Description 08/18/2024 1:30 PM EDT Telemedicine [facility] [address] [place] [address] Emi Harrell RN 11/12/2024 1:00 PM EDT Office Visit [facility] [address] [place] [address] Jimmie, Atiya, OD [address] [place] [address] documented as of this encounter Visit Diagnoses Not on filedocumented in this encounter Additional Health Concerns Assessment Noted Time PHQ-9 Depression Total Score: 0 12/13/19 23 10:21 AM EDT documented as of this encounter Care Teams Privacy Analyst Relationship Specialty Start Date End Date Uma Chung MD [address] [place], [place] [phone] PCP - General Family Medicine 02/21/18 documented as of this encounter
--- OUTSIDE RECORDS SUMMARY | 2024-08-05 08:22 | XMS_ITS | Encounter Summary ---
Author Organization [employer] Address [address] [facility] 7t [place] [address] Care Team Providers Care Aircraft Delivery Checker Name Role Phone Uma Chung MD Primary Care Provide r Reason for Visit * Reason Onset Date Comments Med Refill 06/15/2024 Encounter Details Date Type Department Care Team ([facility] st Contact Info) Description 06/15/2024 Telephone [facility] [address] [place], [place] [phone] Uma Chung MD [address] [place], [place] [phone] Med Refill Social History Tobacco Use Types [...] 100 MG tablet To be sent to: [facility] documented in this encounter Plan of Treatment Upcoming Encounters Date Type Department Care Team (Late st Contact Info) Description 08/18/2024 1:30 PM EDT Telemedicine [facility] [address] [place] [address] Emi Harrell RN 11/12/2024 1:00 PM EDT Office Visit [facility] [address] [place] [address] Jimmie, Atiya, OD 230 [place] [address] documented as of this encounter Visit Diagnoses Not on filedocumented in this encounter Additional Health Concerns Assessment Noted Time PHQ-9 Depression Total Score: 4 05/06/20 24 9:16 AM EST documented as of this encounter Care Teams Aircraft Delivery Checker Relationship Specialty Start Date End Date Uma Chung MD [address] [place] [address] PCP - General Family Medicine 02/21/18 documented as of this encounter
--- OUTSIDE RECORDS SUMMARY | 2024-08-05 08:22 | XMS_ITS | Encounter Summary ---
Author Organization [employer] Address [address] [facility] 7t [place] [address] Care Team Providers Care Pole Framer Machine Name Role Phone Uma Chung MD Primary Care Provide r Encounter Details Date Type Department Care Team (Late st Contact Info) Description 08/05/2024 Orders Only GENERIC EXTERNAL DATA [...] Info) Description 08/18/2024 1:30 PM EDT Telemedicine [facility] [address] [place] [address] Emi Harrell RN 11/12/2024 1:00 PM EDT Office Visit [facility] [address] [place] [address] Atiya Samuel, OD 230 [place] [address] documented as of this encounter Procedures Procedure Name Priority Date/Time Associated Diagnosis Comments HIGH SENSITIVITY TROPONIN I Routine 08/05/2024 7:46 AM EST CBC WITH AUTO DIFFERENTIAL Routine 08/05/2024 7:46 AM EST APTT Routine 08/05/2024 7:46 AM EST PROTHROMBIN TIME-INR Routine 08/05/2024 7:46 AM EST COMPREHENSIVE METABOLIC PANEL Routine 08/05/2024 7:46 AM EST SARS COV2/INFLUENZA A/B AND RSV RNA QL NAAT Routine 08/05/2024 7:34 AM EST XR CHEST 1 VIEW Routine 08/05/2024 7:29 AM EST documented in this encounter Results * (ABNORMAL) High Sensitivity Troponin I (08/05/2024 7:46 AM EST) TROPONIN I HIGH SENSITIVITY 679.0(HH) <3.5 - 35.0 ng/L [facility] Comment:Critical value for H S-TnI: Results called to and read matijamal NAVARRO Person calling: AASHISH Date: 08/05/24 Time: 0817The Coles high sensitivity Troponin-I results should beused in conjunction with other diagnostic information suchas ECG, clinical observations and information, and patientsymptoms to aid in the diagnosis of NE. 08/05/2024 7:46 AM EST 08/05/2024 7:50 AM EST Generic External Data Provider LAB BLOOD ORDERAB LES Final Result Performing Organization Address [facility] Co de Phone Number [facility] [address] [place] [phone] * Partial Thromboplastin Time, Activated (APTT) (08/05/2024 7:46 AM EST) Pathologist [facility] Partial Thromboplastin Time 27.3 26.0 - 36.8 SEC [facility] Comment:For information rega rding the monitoring of direct thrombininhibitors, please refer to Pharmacy. 08/05/2024 7:46 AM EST 08/05/2024 7:50 AM EST Generic External Data Provider LAB BLOOD ORDERAB LES Final Result Performing Organization Address [facility] Co de Phone Number [facility] [address] [place] [phone] * Prothrombin Time-INR (08/05/2024 7:46 AM EST) Pathologist [facility] Prothrombin Time 12.0 10.9 - 12.4 SEC [facility] INTERNATIONAL NORM RATIO 1.0 0.9 - 1.1 [facility] Comment:INTERNATIONAL NORMAL IZED RATIO (INR) REFERENCE [...] Provider LAB BLOOD ORDERAB LES Final Result [facility] [address] [place] [phone] * (ABNORMAL) Comprehensive Metabolic Panel (08/05/2024 7:46 AM EST) Sodium 141 135 - 145 mmol/L [facility] Potassium 4.1 3.3 - 5.1 mmol/L [facility] Chloride 110(H) 96 - 108 mmol/L [facility] Carbon Dioxide 19(L) 22 - 29 mmol/L [facility] Anion Gap 16 12 - 20 [facility] Urea Nitrogen (BUN) 43(H) 9 - 16 mg/dL [facility] Creatinine, Serum 2.46(H) 0.5 - 1.4 mg/dL [facility] Creatinine Clr Calc Pharmacy 27.9 [facility] Comment:eGFR (calculated fro m the MDRD study equation) and eCrCl(calculated from the Cockcroft-Gault equation) are based ondifferent parameters and may not yield comparable results.If eCrCl result is absurd, please check patient'sheight/weight. Estimated Glomerular Filt Rate 26 [facility] Comment:Chronic Kidney Disea se: Estimated GFR < 60 mL/min/1.46y9Vkvqpf Kidney Disease: Estimated GFR < 15 mL/min/1.73m2 Glucose 201(H) 60 - 115 mg/dL [facility] Calcium 8.0(L) 8.4 - 10.2 mg/dL [facility] Bilirubin, Total 0.7 0.0 - 1.0 mg/dL [facility] Aspartate Amino Transferase 29 5 - 37 U/L [facility] Alanine Aminotransferase 16 0 - 40 U/L [facility] Total Protein 7.5 6.5 - 8.0 g/dL [facility] Albumin Level 3.3(L) 3.5 - 5.0 g/dL [facility] Alkaline Phosphatase 73 39 - 117 U/L [facility] 08/05/2024 7:46 AM EST 08/05/2024 7:50 AM EST us Generic External Data Provider LAB BLOOD ORDERAB LES Final Result [facility] [address] [place] [phone] * (ABNORMAL) CBC auto differential (08/05/2024 7:46 AM EST) White Blood Count 11.2(H) 4.8 - 10.8 X10*3/uL [facility] Red Blood Count 3.28(L) 4.60 - 5.80 X10*6/uL [facility] Hemoglobin 9.8(L) 14.0 - 18.0 g/dl [facility] Hematocrit 29.8(L) 42.0 - 52.0 % [facility] Mean Corpuscular Volume 90.9 80.0 - 98.0 fL [facility] Mean Corpuscular Hemoglobin 29.9 27.0 - 33.0 pg [facility] Mean Corpuscular HGB Conc 32.9 31.0 - 36.0 g/dl [facility] Red Cell Distribution Width 13.1 11.0 - 16.0 % [facility] Platelet Count 364 160 - 400 X10*3/uL [facility] Mean Platelet Volume 10.2 9.4 - 12.4 fL [facility] Neutrophils Percent Auto 77.3(H) 45 - 73 % [facility] Imm Gran Pct Auto 0.8(H) 0.0 - 0.4 % [facility] Lymphocytes Percent Auto 10.4(L) 20 - 40 % [facility] Monocytes Percent Auto 8.6 2 - 11 % [facility] Eosinophils Percent Auto 2.4 0 - 4 % [facility] Basophils Percent Auto 0.5 0 - 2 % [facility] NRBC Pct Auto 0.0 0.0 - 0.2 /100WBC [facility] Neutrophils Absolute Auto 8.6(H) 2.0 - 8.3 x10*3/uL [facility] Imm Gran Abs Auto 0.09(H) 0.00 - 0.03 X10*3/uL [facility] Lymphocytes Absolute Auto 1.2 1.2 - 4.9 X10*3/uL [facility] Monocytes Absolute Auto 1.0 0.1 - 1.2 X10*3/uL [facility] Eosinophils Absolute Auto 0.3 0.0 - 0.4 X10*3/uL [facility] Basophils Absolute Auto 0.1 0.0 - 0.2 X10*3/uL [facility] NRBC Abs Auto 0.000 0.0 - 0.012 X10*3/uL [facility] 08/05/2024 7:46 AM EST 08/05/2024 7:50 AM EST us Generic External Data Provider LAB BLOOD ORDERAB LES Final Result [facility] [address] [place] [phone] * (ABNORMAL) SARS-CoV-2 RNA, Influenza A/B, and RSV RNA, Ql NAAT (08/05/2024 7:34 AM EST) Influenza A PCR POSITIVE(A) Negative [facility] Influenza B PCR NEGATIVE Negative [facility] Resp Syncy Virus RNA Qual PCR NEGATIVE Negative [facility] SARS COV2 PCR NEGATIVE Negative [facility] Comment:All test results mus t [...] use by authorized laboratories.Testing performed on the [email or web address] GeneXpert utilizingreal-time RT-PCR.All SARS CoV2 and positive influenza A/B results arereported to [facility]. 08/05/2024 7:34 AM EST 08/05/2024 7:38 AM EST us Generic External Data Provider LAB MICROBIOLOGY - GENERAL ORDERABLES Final Result [facility] [address] [place] [phone] * XR Chest 1 View (08/05/2024 7:29 AM EST) Anatomical Region Laterality Modality Chest Radiographic Renetta ging 08/05/2024 7:29 AM EST Narrative 08/05/2024 8:05 AM EST ? [facility] ?[address] [facility] ?[place] [address] ?XRay Report ? Signed ? Patient: Phil Tsai ?MR#: [id number] ?? 87 ? : 1950 ?Acct:[id number] ? Age/Sex: 74 / M ?ADM Date: 08/05/24 ? Loc: HO.ED ? Attending Dr: ? Ordering Physician: Van Akins MD ?? Date of Service: 08/05/24 ?? Procedure(s): XR chest 1V ?? Accession Number(s): [id number] ? cc: Uma Chung MD; Van Akins [...] ? Signed By: ?<Electronically signed by Pranav Tsai MD in OV> ? 08/05/24 08 ? DD/ 0729 ? TD/TT: 08/05/24 0757 ? Machine Specialist: ? Procedure Note Donarater, Image - 08/05/2024 [place] [address] XRay Report Signed Patient: Phil Tsai AMR#: [id number] [birth year] : 8Acct:[id number] Age/Sex: 74 / MADM Date: 08/05/24 Loc: HO.ED Attending Dr: Ordering Physician: Van Akins MD Date of Service: 08/05/24 Procedure(s): XR chest 1V Accession Number(s): [id number] cc: Uma Chung MD; Van Akins MD EXAMINATION: XR CHEST [...] MD Signed By: <Electronically signed by Pranav Tsai MDin OV> 08/05/24 0802 DD/ 0729 TD/TT: 08/05/24 0757 Machine Specialist: [facility] External Provider IMG XR PROCEDURES Edited Result - Final documented in this encounter Visit Diagnoses Not on filedocumented in this encounter Additional Health Concerns Assessment Noted Time PHQ-9 Depression Total Score: 4 05/06/20 24 9:16 AM EST documented as of this encounter Care Teams Pole Framer Machine Relationship Specialty Start Date End Date Uma Chung MD [address] [place] [phone] PCP - General Family Medicine 02/21/18 documented as of this encounter
--- OUTSIDE RECORDS SUMMARY | 2024-08-05 08:22 | XMS_ITS | Encounter Summary ---
Author Organization [employer] Address [address] [facility] 7t [place] [address] Care Team Providers Care Cuff Matcher Name Role Phone Uma Chung MD Primary Care Provide r Reason for Visit * Reason Comments Med Refill Encounter Details Date Type Department Care Team ([facility] st Contact Info) Description 07/17/2023 Refill [facility] [address] [place], [place] [phone] Uma Chung MD [address] [place], [place] [phone] Osteoarthritis involving multiple joints on both sides [...] Description 08/18/2024 1:30 PM EDT Telemedicine [facility] [address] [place] [address] Emi Harrell RN 11/12/2024 1:00 PM EDT Office Visit [facility] [address] [place] [address] Jimmie, Atiya, OD [address] [place] [address] documented as of this encounter Visit Diagnoses Diagnosis Osteoarthritis involving multiple joints on both sides of body documented in this encounter Additional Health Concerns Assessment Noted Time PHQ-9 Depression Total Score: 0 12/13/19 23 10:21 AM EDT documented as of this encounter Care Teams Cuff Matcher Relationship Specialty Start Date End Date Uma Chung MD [address] [place] [address] PCP - General Family Medicine 02/21/18 documented as of this encounter
--- OUTSIDE RECORDS SUMMARY | 2024-08-05 08:22 | XMS_ITS | Encounter Summary ---
Author Organization [employer] Address [address] [facility] [address] [place] [address] Care Team Providers Care Tree Trimming Supervisor Name Role Phone Uma Chung MD Primary Care Provide r Reason for Visit * Reason Onset Date Comments Med Refill 07/14/2024 Encounter Details Date Type Department Care Team (Late st Contact Info) Description 07/14/2024 Refill [facility] [address] [place], [place] [phone] Uma Chung MD [address] [place], [place] [phone] Erectile dysfunction, unspecified erectile dysfunction type Social [...] 100 MG tablet To be sent to: [facility] documented in this encounter Plan of Treatment Upcoming Encounters Date Type Department Care Team (Late st Contact Info) Description 08/18/2024 1:30 PM EDT Telemedicine [facility]INE [address] [place] [address] Emi Harrell RN 11/12/2024 1:00 PM EDT Office Visit [facility] OPT[facility] [address] [place] [address] Atiya Samuel, OD [address] [place] [address] documented as of this encounter Visit Diagnoses Diagnosis Erectile dysfunction, unspecified erectile dysfunction type documented in this encounter Additional Health Concerns Assessment Noted Time PHQ-9 Depression Total Score: 4 05/06/20 24 9:16 AM EST documented as of this encounter Care Teams Tree Trimming Supervisor Relationship Specialty Start Date End Date Uma Chung MD [address] [place] [address] PCP - General Family Medicine 02/21/18 documented as of this encounter
--- OUTSIDE RECORDS SUMMARY | 2024-08-05 08:22 | XMS_ITS | Data Portability ---
Author Organization [employer] Address [address] [place] [phone] Care Team Providers Care Dominatrix Name Role Phone ANGELES GONZALESLARA Primary Care Provider [facility] OTHER Assessment No assessment recorded. Plan of [...] SNOMED-CT Code Diagnosis ICD10 Code Diagnosis Note 23821 Porter Bran MD Main - [facility] [address] [place] [phone] 04/25/2024 14:33:24 04/27/2024 17:48:06 Acute exacerbation of chronic obstructive pulmonary disease 607095729 J44.1 As noted, we were called to see this patient regarding concerns of need for post-d/c check. Evaluation in the field was performed by my bottom loader colleague, as noted above, I provided real-time [...] so no role for abx here. [facility] Primary caredanielle visit this week [...] Pedersen Member ID Guarantor Name 04/25/2024 1 [facility] - DOS ON OR AFTER 2022 - DUAL ELIGIBLE - ASSISTED OPTIONS AND ONE CARE (MEDICARE REPLACEMENT/ADV ANTAGE - HMO) Phil Kebede [id number] Phil Kebede Notes Date Note Type Note [...] elevated. Would also like eval of BP. Ore Tester Organization Information for JuanColeman [employer] ROVERTO Carma Legal Name: [facility] Address: [address] [place] [address], [place] [address], Parking Meter Attendant: Rei Blake MD CLIA No.: [id number] Ore Tester POC Test Results from Coleman Stauffer Blood Glucose Measurement (14:28:26) Blood Glucose: 311 mg/dL Rapid COVID antigen (14:28:30) COVID: - Rapid influenza antigen (14:28:30) Flu: - .................... .................... .................... .................... .................... .................... .................... . Ore Tester Note From Coleman Stauffer: This 73-year-old male with a history including but not limited to DM type II, HTN, gout, OA requested a visit to address multiple complaints. Patient states he was seen at [facility] emergency department on 04/17/24 and states he [...] .................... .................... .................... .................... .................... .................... . [facility] [place] [place] Consulted: Cory Bran .................... .................... .................... .................... .................... .................... .................... . Disposition: Fulfilled Porter Bran MD [address] [facility], [place], [phone], [facility] 04/26/2024 16:58:35
--- OUTSIDE RECORDS SUMMARY | 2024-08-05 08:22 | XMS_ITS | Encounter Summary ---
Author Organization [employer] Address [address] [facility] 7t [place] [address] Care Team Providers Care Measurement Specialist Name Role Phone Uma Chung MD Primary Care Provide r Reason for Visit * Reason Onset Date Comments Med Refill 07/14/2024 Encounter Details Date Type Department Care Team (Late st Contact Info) Description 07/14/2024 Refill [facility] [address] [place], [place] [phone] Uma Chung MD [address] [place], [place] [phone] Osteoarthritis involving multiple joints on both sides [...] 5-325 MG tablet To be sent to: [facility] - [place], [place] - [address] [place] [address] documented in this encounter Plan of Treatment Upcoming Encounters Date Type Department Care Team (Late st Contact Info) Description 08/18/2024 1:30 PM EDT Telemedicine [facility] [address] [place] [address] Emi Harrell RN 11/12/2024 1:00 PM EDT Office Visit [facility] [address] [place] [address] Atiya Samuel, DIANA [address] [place] [address] documented as of this encounter Visit Diagnoses Diagnosis Osteoarthritis involving multiple joints on both sides of body documented in this encounter Additional Health Concerns Assessment Noted Time PHQ-9 Depression Total Score: 4 05/06/20 24 9:16 AM EST documented as of this encounter Care Teams Measurement Specialist Relationship Specialty Start Date End Date Uma Chung MD [address] [place] [address] PCP - General Family Medicine 02/21/18 documented as of this encounter
--- OUTSIDE RECORDS SUMMARY | 2024-08-05 08:22 | XMS_ITS | Encounter Summary ---
Author Organization [employer] Address [address] [facility] 7t [place] [address] Care Team Providers Care Laborer Plumbing Name Role Phone Uma Chung MD Primary [...] Info) Description 08/18/2024 1:30 PM EDT Telemedicine [facility] MEDICINE [address] [place] [address] Emi Harrell RN 11/12/2024 1:00 PM EDT Office Visit [facility] OPTOMETRY [address] [place] [address] Atiya Samuel, OD [address] [place] [address] documented as of this encounter Procedures Procedure [...] EST Narrative 08/01/2024 12:15 PM EST ? [facility] ?[address] ?[place] [address] ?XRay Report ? Signed ? Patient: Delio,Rohit ?MR#: [id number] ?? 87 ? : 1950 ?Acct:[id number] ? Age/Sex: 74 / M ?ADM Date: 08/01/24 ? Loc: HO.ED ? Attending Dr: ? Ordering Physician: Audra Ferrer ?? Date of Service: 08/01/24 ?? Procedure(s): XR ankle LT min 3V ?? Accession Number(s): [id number] ? cc: Uma Chung MD; Audra Ferrer [...] DD/ 1214 ? TD/TT: 08/01/24 1214 ? Tape Control Skin Or Spar Mill Operator: ? Procedure Note Vero, Image - 08/01/[address] [address] XRay Report Signed Patient: Phil Tsai AMR#: [id number] [birth year] : 8Acct:[id number] Age/Sex: 74 / MADM Date: 08/01/24 Loc: HO.ED Attending Dr: Ordering Physician: Audra Ferrer Date of Service: 08/01/24 Procedure(s): XR ankle LT min 3V Accession Number(s): [id number] cc: Uma Chung MD; Audra Ferrer CLINICAL [...] 08/01/24 1215 DD/ 1214 TD/TT: 08/01/24 1214 Tape Control Skin Or Spar Mill Operator: [facility] External Provider IMG XR PROCEDURES Edited Result - Final * XR Foot 3+ Views Left (08/01/2024 12:14 PM EST) Anatomical Region Laterality Modality Lower Extremities, Foot Left Radiogra phic Imaging 08/01/2024 12:1 4 PM EST Narrative 08/01/2024 12:15 PM EST ? [facility] ?[address] ?[place] [address] ?XRay Report ? Signed ? Patient: Delio,Rohit ?MR#: [id number] ?? 87 ? : 1950 ?Acct:[id number] ? Age/Sex: 74 / M ?ADM Date: 08/01/24 ? Loc: HO.ED ? Attending Dr: ? Ordering Physician: Audra Ferrer ?? Date of Service: 08/01/24 ?? Procedure(s): XR foot LT min 3V ?? Accession Number(s): [id number] ? cc: Uma Chung MD; Audra Ferrer [...] DD/ 13 ? TD/TT: 08/01/24 1214 ? Tape Control Skin Or Spar Mill Operator: ? Procedure Note Donarater, Image - 08/01/[address] [address] XRay Report Signed Patient: Phil Tsai AMR#: [id number] [birth year] : 8Acct:[id number] Age/Sex: 74 / MADM Date: 08/01/24 Loc: HO.ED Attending Dr: Ordering Physician: Audra Ferrer Date of Service: 08/01/24 Procedure(s): XR foot LT min 3V Accession Number(s): [id number] cc: Uma Chung MD; Audra Ferrer CLINICAL [...] 08/01/24 1215 DD/ 1214 TD/TT: 08/01/24 1214 Tape Control Skin Or Spar Mill Operator: [facility] External Provider IMG XR PROCEDURES Edited Result - Final * (ABNORMAL) Sed Rate by Modified Nkechi (08/01/2024 11:45 AM EST) Erythrocyte Sedimentation Rate 74(H) 0 - 15 MM/HR [facility] Comment:Patients with polycy themia and many hemoglobin abnormalitiesmay have depressed sed rates whereas patients with anemiamay have elevated sed rates. 08/01/2024 11:4 5 AM EST 08/01/2024 11:48 AM EST Generic External Data Provider LAB BLOOD ORDERAB LES Final Result Performing Organization Address [facility] Co de Phone Number [facility] [address] [place] [phone] * Slide Review (08/01/2024 11:45 AM EST) Slide Review VERIFIED [facility] 08/01/2024 11:4 5 AM EST 08/01/2024 11:48 AM EST [employer] External Data Provider LAB BLOOD ORDERAB LES Final Result Performing Organization Address [facility] Phone Number [facility] [address] [place] [phone] * (ABNORMAL) CBC auto differential (08/01/2024 11:45 AM EST) White Blood Count 9.5 4.8 - 10.8 X10*3/uL [facility] Red Blood Count 3.32(L) 4.60 - 5.80 X10*6/uL [facility] Hemoglobin 9.9(L) 14.0 - 18.0 g/dl [facility] Hematocrit 29.8(L) 42.0 - 52.0 % [facility] Mean Corpuscular Volume 89.8 80.0 - 98.0 fL [facility] Mean Corpuscular Hemoglobin 29.8 27.0 - 33.0 pg [facility] Mean Corpuscular HGB Conc 33.2 31.0 - 36.0 g/dl [facility] Red Cell Distribution Width 13.2 11.0 - 16.0 % [facility] Platelet Count 312 160 - 400 X10*3/uL [facility] Comment:Confirmed by smear. Neutrophils Percent Auto 66.6 45 - 73 % [facility] Imm Gran Pct Auto 0.5(H) 0.0 - 0.4 % [facility] Lymphocytes Percent Auto 21.2 20 - 40 % [facility] Monocytes Percent Auto 9.8 2 - 11 % [facility] Eosinophils Percent Auto 1.4 0 - 4 % [facility] Basophils Percent Auto 0.5 0 - 2 % [facility] NRBC Pct Auto 0.0 0.0 - 0.2 /100WBC [facility] Neutrophils Absolute Auto 6.3 2.0 - 8.3 x10*3/uL [facility] Imm Gran Abs Auto 0.05(H) 0.00 - 0.03 X10*3/uL [facility] Lymphocytes Absolute Auto 2.0 1.2 - 4.9 X10*3/uL [facility] Monocytes Absolute Auto 0.9 0.1 - 1.2 X10*3/uL [facility] Eosinophils Absolute Auto 0.1 0.0 - 0.4 X10*3/uL [facility] Basophils Absolute Auto 0.1 0.0 - 0.2 X10*3/uL [facility] NRBC Abs Auto 0.000 0.0 - 0.012 X10*3/uL [facility] 08/01/2024 11:4 5 AM EST 08/01/2024 11:48 AM EST us Generic External Data Provider LAB BLOOD ORDERAB LES Edited Result - Final [facility] [address] [place] [phone] * (ABNORMAL) C-reactive Protein (08/01/2024 11:44 AM EST) C Reactive Protein 7.86(H) < or = 0.50 mg/dL [facility] 08/01/2024 11:4 4 AM EST 08/01/2024 11:48 AM EST us Generic External Data Provider LAB BLOOD ORDERAB LES Final Result Performing Organization Address City/[facility]/ZIP Co de Phone Number [facility] [address] [place] [phone] * (ABNORMAL) Uric acid (08/01/2024 11:44 AM EST) Uric Acid 7.8(H) 3.4 - 7.0 mg/dL [facility] 08/01/2024 11:4 4 AM EST 08/01/2024 11:48 AM EST Generic External Data Provider LAB BLOOD ORDERAB LES Final Result Performing Organization Address [facility] Co de Phone Number [facility] [address] [place] [phone] * (ABNORMAL) Basic Metabolic Panel (08/01/2024 11:44 AM EST) Sodium 142 135 - 145 mmol/L [facility] Potassium 4.3 3.3 - 5.1 mmol/L [facility] Chloride 111(H) 96 - 108 mmol/L [facility] Carbon Dioxide 21(L) 22 - 29 mmol/L [facility] Anion Gap 14 12 - 20 [facility] Urea Nitrogen (BUN) 28(H) 9 - 16 mg/dL [facility] Creatinine, Serum 2.29(H) 0.5 - 1.4 mg/dL [facility] Creatinine Clr Calc Pharmacy 30.1 [facility] Comment:eGFR (calculated fro m the MDRD study equation) and eCrCl(calculated from the Cockcroft-Gault equation) are based ondifferent parameters and may not yield comparable results.If eCrCl result is absurd, please check patient'sheight/weight. Estimated Glomerular Filt Rate 28 [facility] Comment:Chronic Kidney Disea se: Estimated GFR < 60 mL/min/1.21g8Ujxtap Kidney Disease: Estimated GFR < 15 mL/min/1.73m2 Glucose 154(H) 60 - 115 mg/dL [facility] Calcium 8.5 8.4 - 10.2 mg/dL [facility] 08/01/2024 11:4 4 AM EST 08/01/2024 11:48 AM EST us Generic External Data Provider LAB BLOOD ORDERAB LES Final Result Performing Organization Address City/State/[facility] Co de Phone Number [facility] [address] [place] [phone] documented in this encounter Visit Diagnoses Not on filedocumented in this encounter Additional Health Concerns Assessment Noted Time PHQ-9 Depression Total Score: 4 05/06/20 24 9:16 AM EST documented as of this encounter Care Teams Laborer Plumbing Relationship Specialty Start Date End Date Uma Chung MD [address] [place] [address] PCP - General Family Medicine 02/21/18 documented as of this encounter
--- OUTSIDE RECORDS SUMMARY | 2024-08-05 08:22 | XMS_ITS | Encounter Summary ---
Author Organization [employer] Address [address] [facility] [address] [place] [address] Care Team Providers Care Horticultural Specialty Grower Inside Name Role Phone Uma Chung MD Primary Care Provide r Reason for Visit * Reason Onset Date Comments Nurse Triage 07/31/2024 Encounter Details Date Type Department Care Team ([facility] st Contact Info) Description 07/31/2024 Telephone [facility] MEDICINE [address] [place] [address] Uma Chung MD [address] [place], [place] [phone] Nurse Triage Social History Tobacco Use Types [...] RN - 07/31/2024 9:08 AM EST No revenue field auditor needed as this business writer speaks Palauan. Call to Phil Tsai , spoke with son who is on HIPAA. Reports having some pain of left great big toe. Denies any swelling. Mild redness. No injury. Pain onset 4 days ago. Pt has not used any OTC Tylenol or motrin . Pt son advised of disposition,agrees to seek [facility] for exam as no sick on site [...] regarding prior message. Contact pt Son at [phone] * Telephone Encounter - Alena Quiroga LPN - 07/31/2024 8:24 AM EST Triage call returned with BLS #[phone] Jessy. No answer at listed number. Message left to return call to [phone]. Call placed again with Jacky [phone]. Multiple attempts to reach patient with no answer at various listed numbers. Messages left to return call to [phone]. * Telephone Encounter - Olive Morrissey - 07/31/2024 8:04 AM EST Symptom: Pain - Severe Outcome: Schedule an urgent appointment (within 1 hour) or talk to a nurse or provider soon Reason: Caller denied all higher acuity questions The caller accepted this outcome. [phone] documented in this encounter Plan of Treatment Upcoming Encounters Date Type Department Care Team (Late st Contact Info) Description 08/18/2024 1:30 PM EDT Telemedicine [facility] MEDICINE [address] [place] [address] Emi Harrell RN 11/12/2024 1:00 PM EDT Office Visit [facility] OPTOMETRY [address] [place] [address] Atiya Samuel, OD [address] [place] [address] documented as of this encounter Visit Diagnoses Not on filedocumented in this encounter Additional Health Concerns Assessment Noted Time PHQ-9 Depression Total Score: 4 05/06/20 24 9:16 AM EST documented as of this encounter Care Teams Horticultural Specialty Grower Inside Relationship Specialty Start Date End Date Uma Chung MD [address] [place] [address] PCP - General Family Medicine 02/21/18 documented as of this encounter
--- OUTSIDE RECORDS SUMMARY | 2024-08-05 08:22 | XMS_ITS | Encounter Summary ---
Author Organization [employer] Address [address] [facility] [address] [place] [address] Care Team Providers Care Records Management Associate Name Role Phone Uma Chung MD Primary Care Provide r Encounter Details Date Type Department Care Team ([facility] st Contact Info) Description 07/12/2023 Telephone [facility] MEDICINE [address] [place], [place] [phone] Uma Chung MD [address] [place] [address] Social History Tobacco Use Types Packs/Day Years [...] Info) Description 08/18/2024 1:30 PM EDT Telemedicine [facility] MEDICINE [address] [place] [address] Emi Harrell RN 11/12/2024 1:00 PM EDT Office Visit [facility] OPTOMETRY [address] [place] [address] Jimmie, Atiya, OD [address] [place] [address] documented as of this encounter Visit Diagnoses Not on filedocumented in this encounter Additional Health Concerns Assessment Noted Time PHQ-9 Depression Total Score: 0 12/13/19 23 10:21 AM EDT documented as of this encounter Care Teams Records Management Associate Relationship Specialty Start Date End Date Uma Chung MD [address] [place], [place] [phone] PCP - General Family Medicine 02/21/18 documented as of this encounter
--- OUTSIDE RECORDS SUMMARY | 2024-08-05 08:22 | XMS_ITS | Encounter Summary ---
Author Organization [employer] Address [address] [facility] [address] [place] [address] Care Team Providers Care Automotive Service Porter Name Role Phone Uma Chung MD Primary Care Provide r Reason for Visit * Reason Comments Med Refill Encounter Details Date Type Department Care Team ([facility] st Contact Info) Description 05/07/2023 Refill [facility] MEDICINE [address] [place], [place] [phone] Uma Chung MD [address] [place], [place] [phone] Osteoarthritis involving multiple joints on both sides [...] Info) Description 08/18/2024 1:30 PM EDT Telemedicine [facility] MEDICINE [address] [place] [address] Emi Harrell RN 11/12/2024 1:00 PM EDT Office Visit [facility] OPTOMETRY [address] [place] [address] Jimmie, Atiya, OD [address] [place] [address] documented as of this encounter Visit Diagnoses Diagnosis Osteoarthritis involving multiple joints on both sides of body documented in this encounter Additional Health Concerns Assessment Noted Time PHQ-9 Depression Total Score: 0 12/13/19 23 10:21 AM EDT documented as of this encounter Care Teams Automotive Service Porter Relationship Specialty Start Date End Date Uma Chung MD [address] [place] [address] PCP - General Family Medicine 02/21/18 documented as of this encounter
--- OUTSIDE RECORDS SUMMARY | 2024-08-05 08:22 | XMS_ITS | Encounter Summary ---
Author Organization [employer] Address [address] [facility] [address] [place] [address] Care Team Providers Care Rubber Down Name Role Phone Uma Chung MD Primary Care Provide r Reason for Visit * Reason Comments Med Refill Encounter Details Date Type Department Care Team ([facility] st Contact Info) Description 07/22/2024 Refill [facility] MEDICINE [address] [place], [place] [phone] Uma Chung MD [address] [place], [place] [phone] Erectile dysfunction, unspecified erectile dysfunction type Social [...] Info) Description 08/18/2024 1:30 PM EDT Telemedicine [facility] MEDICINE [address] [place] [address] Emi Harrell RN 11/12/2024 1:00 PM EDT Office Visit [facility] OPTOMETRY [address] [place], [place] [phone] Atiya Samuel, OD [address] [place] [address] documented as of this encounter Visit Diagnoses Diagnosis Erectile dysfunction, unspecified erectile dysfunction type documented in this encounter Additional Health Concerns Assessment Noted Time PHQ-9 Depression Total Score: 4 05/06/20 24 9:16 AM EST documented as of this encounter Care Teams Rubber Down Relationship Specialty Start Date End Date Uma Chung MD [address] [place] [address] PCP - General Family Medicine 02/21/18 documented as of this encounter
--- NOTE | 2024-08-05 09:56 | CA_ITS ---
Transthoracic Echocardiogram Patient (Last, First, Middle): Phil Kebede A Gender: Male Date of : 1950 Age: 74 Procedure Date: 08/05/2024 Procedure Type: Transthoracic Echocardiogram Location: ER Height: 167.64 cm Weight: 97.07 kg BSA: 2.06 m2 Heart Rate: bpm BP: 177 / 97 mmHg Deep Fat Fry Cook: Referring MD: Van Akins MD Impregnator Operator: Myles Augustine MD Symptoms: chest pain Study Quality: Technically Difficult ECG Rhythm: Sinus Conclusions: - 1. Technically limited study 2. Severely reduced LV ejection fraction of 20-25% with regional wall motion abnormality which could represent stunned myocardium in left main/ LAD distribution, could also represent stress induced cardiomyopathy, with mild left ventricular hypertrophy with pseudonormal filling pattern 3. Limited evaluation of cardiac valves with normal cardiac valvular Dopplers 4. Normal measured RV systolic pressure Findings Procedure Information Contrast agent, definity, is being given per protocol without apparent complications. Left Ventricle Normal left ventricular cavity size. There is mildly increased left ventricular wall thickness. The left ventricular systolic function is severely decreased. The visually estimated ejection fraction is between 20 25%. There is evidence of regional wall motion abnormalities. Spectral Doppler is indicative of a pseudonormal filling pattern. Wall Motion Rest Echo Findings The apical inferior, mid inferoseptal, and basal anteroseptal segments are hypokinetic. The apex, apical anterior, mid anterior, apical lateral, apical septum, mid anterolateral, and mid anteroseptal segments are akinetic. All other scored wall segments showed normal motion. Right Ventricle Normal right ventricular cavity size and systolic function. Atria The left atrium was not well visualized. There is no evidence of interatrial shunt. The right atrium was not well visualized. Aortic Valve The aortic valve was not well visualized. There is no aortic valve stenosis. There is no aortic valve regurgitation. Mitral Valve The mitral valve was not well visualized. There is trace mitral valve regurgitation. There is no mitral valve stenosis. Pulmonic Valve The pulmonic valve was not well visualized. Tricuspid Valve The tricuspid valve was not well visualized. There is mild tricuspid valve regurgitation. The right ventricular systolic pressure is normal. Normal right atrial pressure. There is no evidence of pulmonary hypertension. Great Vessels All visible segments of the aorta are normal in size. The pulmonary artery was not well visualized. There is no dilatation of the ascending aorta measuring 3.40 cm. Venous The inferior vena cava is normal in size and collapses greater than 50% with inspiration. Pericardium/Pleural There is no evidence of pericardial effusion. Prior Study Comparison No prior study available for comparison. Measurements 2D Linear Measurements IVSd: 1.32 0.6-0.9/0.6-1.0 cm LVIDd: 5.32 3.9-5.3/4.2-5.9 cm LVIDd Index: 2.58 2.4-3.2/2.2-3.1 cm/m2 LVIDs: 4.77 2.0-3.6 cm LVPWd: 1.31 0.7-1.1 cm Ao Root: 3.50 2.1-3.5 cm LA Diam: 3.10 2.7-3.8/3.0-4.0 cm LAIDs Index: 1.50 1.5-2.3 cm/m2 LV Mass: 365.97 67-162/88-224 g LV Mass Index: 177.65 43-95/49-115 g/m2 LVOT Diam: 2.60 3.0+(-)1.3 cm 2D Systolic Function EF 4C: 31.60 >55% EF 2C: 13.10 >55% EF BiP: 19.60 >55% Mitral Valve MV Pk E: 1.04 MV PK A: 0.47 MV Decel Time: 132.00 E/A: 2.20 E'Lateral: 15.80 E'Medial: 3.48 E/E' Med: 29.90 E/E' Lat: 6.60 PHT: 39.00 MVA PHT: 5.64 Decel [place]: 7.85 Aortic Valve AoV Pk Jon: 1.12 AoV Mn Jon: 0.74 AoV VTI: 0.20 AoV Pk Grad: 5.00 Aov Mn Grad: 3.00 SHILPI Cont.VTI: 3.54 LVOT LVOT Pk Jon: 0.73 LVOT Mn Jon: 0.50 LVOT VTI: 0.13 LVOT Pk Grad: 2.00 LVOT Mn Grad: 1.00 LVOT Diam: 2.60 LVOT Area: 5.31 Diastolic Function MV Pk E: 1.04 MV Pk A: 0.47 E/A: 2.20 E'Medial: 3.48 E/E' Med: 29.90 E' Laterial: 15.80 E/E' Lat: 6.60 Right Ventricle TAPSE (mm): 22.00 TVS' Jon: 9.00 Tricuspid Valve TR Pk Jon: 1.90 TR Pk Grad: 14.00 RA Press: 8.00 RVSP: 22.00 Great Vessels Aorta Ao Root-2D: 3.50 2.0-3.7 cm Ao Asc: 3.40 2.1-3.4 cm Pulmonary Valve PV Pk Jon: 0.39 Peak PV Grad: 1.00 Updated in Other Vendor System with Status of Final Myles Augustine MD electronically signed on 08/05/2024 1:45:15 PM with status of Final
[2024-08-05] MEDS: Amiodarone/Dextrose 150 MG/100 ML PLAST..BAG 600 MG IV (10:20)
[2024-08-05] MEDS: Nitroglycerin 2 % Oint 1 GM Packet 1 INCH TRANSDERMA (10:21)
[2024-08-05] MEDS: Oseltamivir Phosphate 75 MG CAPSULE PO ×2 (10:24→15:19)
--- NOTE | 2024-08-05 10:25 | P.CONCA_ITS ---
History of Present Illness History of Present Illness Date of Service: 08/05/24 Requesting physician: Van Akins Consult reason: atrial fibrillation and myocardial infarction Chief complaint: CP Since Last Night Vomiting Narrative: I was consulted to see Phil in the emergency room on urgent basis due to chest pain along with rapid atrial fibrillation with elevated troponin. He is a 74-year-old male not a good historian with past medical history of hypertension, diabetes with no prior cardiac issues. He said he came to the emergency room 2 days ago because of pain in his left foot and was diagnose with gout and was subsequently released home. He came to the emergency room again this morning because he had overnight chest discomfort. He discussed pressure in his chest radiating left arm and not feeling well generally. He denies any clear fever or chills at home. He has been having cough productive of phlegm. He was diagnose with fluid but was noted to be in atrial fibrillation rapid ventricular response with diffuse ST depression with elevated troponin in his 690 range. When I was in the room with the patient he again started complaining of chest pressure radiating to left arm and was noted to be going back and forth from sinus rhythm into rapid atrial fibrillation. He converted from atrial fibrillation to sinus rhythm with IV Cardizem bolus but has converted back into intermittent episodes of atrial fibrillation rapid ventricular response. He denies any palpitations. Denies any prior history of cardiac issues including myocardial infarction, coronary artery disease, atrial fibrillation. He was noted also to be hypertensive at current point in time. Review of Systems 2 Constitutional: Constitutional: Reports weakness Eyes: Eyes: Reports no additional eye complaints ENT: Reports system reviewed and no additional complaints, except as documented Cardiovascular: Cardiovascular: Reports chest pain at rest, Denies leg edema, Denies lightheadedness, Denies Loss of Consciousness, Denies palpitations and Denies dyspnea Respiratory: Respiratory: Reports cough, Reports excessive phlegm production and Denies dyspnea Gastrointestinal: Gastrointestinal: Reports no additional gastrointestinal complaints Musculoskeletal: Musculoskeletal: Reports no additional musculoskeletal complaints Integumentary/Breasts: Skin/Breast: Reports system reviewed and no additional complaints, except as docu Neurologic: Reports system reviewed and no additional complaints, except as documented and Reports weakness Psychiatric: Psychiatric: Reports no additional psychiatric complaints Endocrine: Endocrine: Reports no additional endocrine complaints and Denies palpitations Hematologic/Lymphatic: Hematologic/Lymphatic: Reports no additional hematologic/lymphatic complaints Allergic/Immunologic: Allergic/Immunologic: Reports no additional allergic/immunologic complaints [facility] Past Medical History Medical History Benign prostatic hyperplasia with lower urinary tract symptoms GERD (gastroesophageal reflux disease) Social History Social History Unable to assess alcohol history related to: Unknown Alcohol intake: never Advance Directives: No Advance Directives Information Provided: Yes Meds Allergies Allergy/AdvReac Type Severity Reaction Status Date / Time No Known Allergies Allergy Verified 08/05/24 08:02 Active Medications: Current Medications Heparin Sodium (Porcine) (Heparin Sodium,Porcine 5,000 Unit/Ml Vial) 3,900 unit 40 unit/kg (3900 unit) IVPUSH PROTOCOL BOLUS PRN; Protocol PRN Reason: 40 unit/kg - Heparin Protocol Heparin Sodium (Porcine) (Heparin Sodium,Porcine 5,000 Unit/Ml Vial) 7,800 unit 80 unit/kg (7800 unit) IVPUSH PROTOCOL BOLUS PRN; Protocol PRN Reason: 80 unit/kg - Heparin Protocol Diltiazem HCl 125 mg/ Sodium (Chloride) 125 mls @ 0 mls/hr IVCONT .Q0M SOURAV; Protocol Last Titration: 08/05/24 08:11 Dose: Infused Heparin Sodium/Sodium Chloride (Heparin Sodium,Porcine/1/2ns) 25,000 unit in 250 mls @ 0 mls/hr IVCONT .Q0M SOURAV; Protocol Amiodarone HCl 900 mg/ Sodium (Chloride) 518 mls @ 34.533 mls/hr IVCONT .Q15H1M SOURAV; Protocol Home Medications ?Medication ?Instructions ?Recorded ?Confirmed ?Last Taken ?Type amitriptyline 25 mg tablet 25 mg PO BEDTIME 12/24/22 Unknown History amlodipine 10 mg tablet 10 mg PO DAILY 12/24/22 Unknown History esomeprazole magnesium 40 mg 40 mg PO DAILY 12/24/22 Unknown History capsule,delayed release glipizide 10 mg tablet 10 mg PO BID 12/24/22 Unknown History melatonin 10 mg capsule 10 mg PO BEDTIME 12/24/22 Unknown History metoprolol succinate 100 mg 100 mg PO DAILY 12/24/22 Unknown History tablet,extended release 24 hr multivitamin with folic acid 400 1 tab PO ONCE 12/24/22 Unknown History mcg tablet (Daily-Maria Elena (with folic acid)) Physical Exam 2 Vital Signs: Vital Signs: Last Vital Signs Temp 98.6 F 08/05/24 07:48 Pulse 116 H 08/05/24 09:52 Resp 16 08/05/24 09:52 BP 163/93 H 08/05/24 09:52 Pulse Ox 93 08/05/24 09:52 O2 Del Method Room Air 08/05/24 09:52 BMI result Body Mass Index 34.7 Const: General: cooperative, alert and awake Nutritional Appearance: obese Orientation/consciousness: patient oriented x3 HEENT: Head: Yes normocephalic and Yes atraumatic Neck: Neck: Yes trachea midline, Yes supple and Yes no JVD Resp: Effort & Inspection: normal respiratory effort Auscultation: wheezes scattered wheezes Cardio: Jugular venous distension: no JVD Rate: tachycardic Rhythm: a bnormal rhythm irregularly irregular Heart sounds: S1 normal heart sound present, S2 normal heart sound present, no click, no gallops, no murmurs and no rubs GI: Auscultation: normal bowel sounds Skin: General skin exam: no rashes or lesions noted Neuro: General: patient oriented x3 and no focal motor deficits Extrem: General: Yes no clubbing, cyanosis or edema Psych: Appearance: grossly normal Objective Labs and Meds 08/05/24 07:46 08/05/24 07:46 Lab results: Laboratory Results - last 24 hr 08/05/24 08/05/24 07:34 07:46 WBC 11.2 H RBC 3.28 L Hgb 9.8 L Hct 29.8 L MCV 90.9 MCH 29.9 MCHC 32.9 RDW 13.1 Plt Count 364 MPV 10.2 Immature Gran % (Auto) 0.8 H Neut % (Auto) 77.3 H Lymph % (Auto) 10.4 L [place] % (Auto) 8.6 Eos % (Auto) 2.4 Baso % (Auto) 0.5 Lymph # (Auto) 1.2 [place] # (Auto) 1.0 Eos # (Auto) 0.3 Baso # (Auto) 0.1 Abs Immat Gran (auto) 0.09 H Absolute Neuts (auto) 8.6 H Absolute Nucleated RBC 0.000 Nucleated RBC % (auto) 0.0 PT 12.0 INR 1.0 APTT 27.3 Sodium 141 Potassium 4.1 Chloride 110 H Carbon Dioxide 19 L Anion Gap 16 BUN 43 H Creatinine 2.46 H Estim Creat Clear Calc 27.9 Estimated GFR 26 Random Glucose 201 H Calcium 8.0 L Total Bilirubin 0.7 AST 29 ALT 16 Alkaline Phosphatase 73 Troponin I High Sens 679.0 H* Total Protein 7.5 Albumin 3.3 L Influenza Type A (PCR) POSITIVE A Influenza Type B (PCR) NEGATIVE RSV RNA Qual (PCR) NEGATIVE SARS-CoV-2 RNA (RT-PCR) NEGATIVE Imaging Radiologist's impression: Impressions Chest X-Ray 08/05/24 07:29 IMPRESSION: Consider pulmonary edema in the correct clinical settings with small to moderate volume right-sided pleural effusion. Granuloma, right upper lung lobe. Electronically signed by: Pranav Frye MD 08/05/2024 08:02 AM [facility] Assessment and Plan (1) Atrial fibrillation with RVR: Status: Acute Symptomatic atrial fibrillation, new onset at current point time his symptoms and evidence of ischemia with rapid heart rate. Given that 2 days ago he was in sinus rhythm most likely triggered by his systemic illness with flu with underlying multiple risk factors. At this point time I would start on IV heparin and eventually in the intermediate card tender if there was no plan for invasive approach would switch him to oral anticoagulant therapy. Obtain an echocardiogram. For now I would start him on IV amiodarone drip and protocol to maintain rhythm to help with managing his ischemia and chest pain syndrome. This was discussed in details with the nursing staff as well as the ED physician. Would restarted on amiodarone drip and. Admitted to telemetry. (2) Myocardial infarction: Status: Acute Patient presents with chest pain syndrome concerning for myocardial infarction with EKG changes suggestive of ischemia along with elevated troponin. Other possibility include myocarditis related to flu syndrome. Could be secondary to rapid atrial fibrillation. At this point time I would treat him with IV heparin, aspirin and high-intensity statin therapy. Maintain rhythm and rate control as above. Will start him on nitro paste for better blood pressure control as well as reduce myocardial ischemia by improving coronary flow. Obtain an echocardiogram at bedside. Continue manage diabetes as per the ED and hospitalist team. Further treatment plan based on his troponin rise as well as echocardiographic findings. Will follow with you. Greater than 40 minutes was spent in managing his complex care. Procedures Date of Service Date of Service: 08/05/24
[2024-08-05 10:27] LABS: Hematocrit 29.8 % (42.0-52.0); Mean Corpuscular HGB Conc 33.6 g/dl (31.0-36.0); Mean Corpuscular Hemoglobin 30.2 pg (27.0-33.0); Mean Platelet Volume 9.5 fL (9.4-12.4); Platelet Count 371 X10*3/uL (160-400); Red Blood Count 3.31 X10*6/uL (4.60-5.80); Red Cell Distribution Width 13.1 % (11.0-16.0); White Blood Count 11.8 X10*3/uL (4.8-10.8)
[2024-08-05] MEDS: Amiodarone HCL 900 MG in 0.9 % Sodium Chloride 500 ML 34.53 MG IVCONT (10:33)
[2024-08-05 10:35] LABS: Prothrombin Time 12.2 SEC (10.9-12.4)
--- NOTE | 2024-08-05 10:37 | PM.IMHP ---
History of Present Illness Date of Service: 08/05/24 Attending physician on admission: Karin Forde Chief Complaint: nsetmi ,influenza a HPI: 74-year-old male with pmhx of hypertension, CKD, BPH gout,dm2 : Patient came to the hospital because of chest pain and palpitations, also has some dry cough, his chest pain radiating to the left side, he said the chest pain started overnight. Lab imaging [place]: Found to have elevated troponin, EKG -AFib with rapid ventricular response and diffuse ST changes, elevated troponin, in addition found to have influenza a cxr:Consider pulmonary edema in the correct clinical settings with small to moderate volume right-sided pleural effusion. Patient was started on IV heparin and requested admission for possible NSTEMI, and influenza a; patient was started IV heparin drip, also Tamiflu , Cardizem drip for AFib with RVR, echo added as well as Cardiology evaluation Subsequently patient was also started having shortness of breath added IV Lasix. Patient blood pressure also started going up-so also added nitro drip. Review of Systems Review of Systems: as above. Yes all other systems are reviewed and are negative [facility] Medical History Benign prostatic hyperplasia with lower urinary tract symptoms GERD (gastroesophageal reflux disease) Social History Unable to assess alcohol history related to: Unknown Alcohol intake: never Patient Tobacco Use Status: Never used Tobacco Smoked in Last 30 Days: No Use of substances other than those prescribed or required for medical reasons: No Advance Directives: No Advance Directives Information Provided: Yes Do you have a plan to hurt others: No Plan Meds Allergies Allergy/AdvReac Type Severity Reaction Status Date / Time No Known Allergies Allergy Verified 08/05/24 08:02 Active Medications: Current Medications Acetaminophen (Acetaminophen 325 Mg Tablet) 650 mg PO Q6H PRN PRN Reason: Pain, Mild 1-3,fever,headache Calcium Carbonate (Calcium Carbonate 750 Mg Tab.Chew) 750 mg PO Q4H PRN PRN Reason: Heartburn Heparin Sodium (Porcine) (Heparin Sodium,Porcine 5,000 Unit/Ml Vial) 3,900 unit 40 unit/kg (3900 unit) IVPUSH PROTOCOL BOLUS PRN; Protocol PRN Reason: 40 unit/kg - Heparin Protocol Heparin Sodium (Porcine) (Heparin Sodium,Porcine 5,000 Unit/Ml Vial) 7,800 unit 80 unit/kg (7800 unit) IVPUSH PROTOCOL BOLUS PRN; Protocol PRN Reason: 80 unit/kg - Heparin Protocol Diltiazem HCl 125 mg/ Sodium (Chloride) 125 mls @ 0 mls/hr IVCONT .Q0M SOURAV; Protocol Last Titration: 08/05/24 08:11 Dose: Infused Heparin Sodium/Sodium Chloride (Heparin Sodium,Porcine/1/2ns) 25,000 unit in 250 mls @ 0 mls/hr IVCONT .Q0M SOURAV; Protocol Amiodarone HCl 900 mg/ Sodium (Chloride) 518 mls @ 34.533 mls/hr IVCONT .Q15H1M SOURAV; Protocol Last Admin: 08/05/24 10:33 Dose: 1 mg/min, 34.53 mls/hr Magnesium Hydroxide (Milk Of Magnesia 30 Ml Oral.Susp) 30 ml PO DAILY PRN PRN Reason: Constipation Melatonin (Melatonin 3 Mg Tablet) 6 mg PO BEDTIME PRN PRN Reason: Insomnia Sodium Chloride (0.9 % Sodium Chloride Flush 3 Ml Syringe) [facility] Home Medications ?Medication ?Instructions ?Recorded ?Confirmed ?Last Taken ?Type esomeprazole magnesium 40 mg 40 mg PO DAILY 12/24/22 08/05/24 Unknown History capsule,delayed release glipizide 10 mg tablet 10 mg PO BID 12/24/22 08/05/24 Unknown History melatonin 10 mg capsule 10 mg PO BEDTIME PRN Sleep 12/24/22 08/05/24 Unknown History metoprolol succinate 100 mg 100 mg PO DAILY 12/24/22 08/05/24 Unknown History tablet,extended release 24 hr multivitamin with folic acid 400 1 tab PO ONCE 12/24/22 08/05/24 Unknown History mcg tablet (Daily-Maria Elena (with folic acid)) cromolyn 4 % eye drops 1 drp ophthalmic (eye) DAILY PRN 08/05/24 08/05/24 Unknown History Conjunctivitis famotidine 20 mg tablet 20 mg PO BID 08/05/24 08/05/24 Unknown History hydrochlorothiazide 12.5 mg tablet 12.5 mg PO QAM 08/05/24 08/05/24 Unknown History oxycodone-acetaminophen 5 mg-325 1 tab PO Q6H PRN Severe Pain 08/05/24 08/05/24 Unknown History mg tablet (Scale Score 7-10) sildenafil 100 mg tablet (Viagra) 100 mg PO DAILY PRN Sexual Activity 08/05/24 08/05/24 Unknown History simvastatin 10 mg tablet 10 mg PO BEDTIME 08/05/24 08/05/24 Unknown History Physical Exam Vital Signs and Narrative: Vital Signs: Last Vital Signs Temp 98.6 F 08/05/24 07:48 Pulse 81 08/05/24 10:35 Resp 19 08/05/24 10:35 BP 177/97 H 08/05/24 10:35 Pulse Ox 92 08/05/24 10:35 O2 Del Method Room Air 08/05/24 10:35 BMI result Body Mass Index 34.7 Appearance: Alert.? Oriented X3.? sob improving cvs: rrr, [id number] . res: air entry diminshed, few sacttered rales abd: no rebound or guarding ,nt, bs present. ext pulses present , no cyanosis . neuro: axo3 , nonfocal. Results Labs 08/05/24 10:19 08/05/24 07:46 Labs: Laboratory Results - last 24 hr 08/05/24 08/05/24 08/05/24 07:34 07:46 10:19 MCV 90.9 90.0 MCH 29.9 30.2 MCHC 32.9 33.6 RDW 13.1 13.1 Plt Count 364 371 MPV 10.2 9.5 Immature Gran % (Auto) 0.8 H Neut % (Auto) 77.3 H Lymph % (Auto) 10.4 L [place] % (Auto) 8.6 Eos % (Auto) 2.4 Baso % (Auto) 0.5 Lymph # (Auto) 1.2 [place] # (Auto) 1.0 Eos # (Auto) 0.3 Baso # (Auto) 0.1 Abs Immat Gran (auto) 0.09 H Absolute Neuts (auto) 8.6 H Absolute Nucleated RBC 0.000 0.000 Nucleated RBC % (auto) 0.0 0.0 PT 12.0 INR 1.0 APTT 27.3 Anion Gap 16 Estim Creat Clear Calc 27.9 Estimated GFR 26 Random Glucose 201 H Calcium 8.0 L Total Bilirubin 0.7 AST 29 ALT 16 Alkaline Phosphatase 73 Total Protein 7.5 Albumin 3.3 L Influenza Type A (PCR) POSITIVE A Influenza Type B (PCR) NEGATIVE RSV RNA Qual (PCR) NEGATIVE SARS-CoV-2 RNA (RT-PCR) NEGATIVE Imaging Radiologist's Impressions: Impressions Chest X-Ray 08/05/24 07:29 IMPRESSION: Consider pulmonary edema in the correct clinical settings with small to moderate volume right-sided pleural effusion. Granuloma, right upper lung lobe. Electronically signed by: Pranav Frye MD 08/05/2024 08:02 AM EST Assessment and Plan (1) Myocardial infarction: Qualifiers: Myocardial infarction type: non-ST elevation myocardial infarction Qualified Code(s): I21.4 - Non-ST elevation (NSTEMI) myocardial infarction Status: Acute (2) Influenza: Status: Acute (3) Elevated troponin: Status: Acute Plan 74-year-old male with pmhx of hypertension, CKD, BPH gout,dm2 : Patient came to the hospital because of chest pain and palpitations: NSTEMI, AFib with RVR, influenza a, possible CHF. NSTEMI: Patient has troponin leak in the setting of CKD, troponin tends to increase from 600 to 900 [address]KG suggestive of diffuse [address] depression. TTE showed EF of 25% with some regional wall motion abnormalities, normal Cardiology consulted, who opined to start on heparin drip, aspirin and statin he is being [facility] at [facility], accepting physician DR Haas- for possible need for cardiac intervention waiting on a bed. Hypertensive urgency: We will start on nitroglycerin drip, titrate to keep the SBP less than 140 mm Hg We will restart his home medications Atrial fibrillation with RVR: On amiodarone drip for rhythm control Heparin for anticoagulation Chronic kidney disease stage III/IV: Creatinine stable around 2.5 which is his baseline Closely monitor I's and O's Avoid nephrotoxic medications Influenza pneumonia: on oseltamavir Diabetes mellitus: sliding scale insulin POC glucose q6h Prophylaxis: heparin Medical reconciliation is still pending-which needs to be done before discharge, pharmacy is aware to complete medical reconciliation-above is informed to ICU also. Patient accepted to the [facility]-awaiting transfer meanwhile due to multiple above management medical issues-patient will benefit from ICU level of care. Quality Stroke Does the patient have a stroke diagnosis?: No VTE Prior VTE?: No VTE Risk Level:: Medical - moderate - high VTE Device Contraindication: N/A - Device Ordered VTE Drug Contraindication: N/A - Med Ordered
[2024-08-05 10:38] LABS: PTT Heparin Drip 28.8 SEC (53-77.9)
[2024-08-05] MEDS: Heparin Sodium,Porcine/1/2NS 25,000 UNIT/250 ML IV.SOLN 10 UNIT IVCONT (10:38)
[2024-08-05 11:10] LABS: Troponin-I High Sensitivity 988.2 ng/L (<3.5-35.0)
--- NOTE | 2024-08-05 11:58 | PC.NURSE ---
Assumed care of this patient at 1100, patient's HR noted to be afib between 90's - 120, on amio gtt, heparin gtt running, redraw ordered for 1630, BP elevated, Dr. Alaniz made aware, sats 90 - 92% on RA, notable SOB on movement, placed on 2L. BNP added.
[2024-08-05 12:35] LABS: B Type Natriuretic Peptide 2788 pg/mL (<100)
--- NOTE | 2024-08-05 12:40 | PC.NURSE ---
Son now at bedside, requesting to speak to provider, messaged Dr. Forde - added on an BNP - came back [phone], put him on 2L because he was SOB/WOB/JVD satting much better. Son is at bedside would like to speak to the doctor about plan of care. Awaiting orders.
[2024-08-05] MEDS: Furosemide 20 MG/2 ML VIAL IVPUSH ×2 (12:53→13:30)
--- NOTE | 2024-08-05 13:14 | PC.NURSE ---
Pt. c/o increased SOB/WOB, Dr. Akins to bedside, verbal order for 3 SL Nitro, pulled & given. Dr. Akins to order IV Nitro
[2024-08-05] MEDS: Nitroglycerin 0.4 MG TAB.SUBL SUBLINGUAL ×3 (13:18→13:23)
[2024-08-05] MEDS: Nitroglycerin/D5W 100 MG/250 ML INFUS..BTL IVCONT (13:36)
--- NOTE | 2024-08-05 13:39 | PC.NURSE ---
IV Nitro started, additonal 20 mg IV lasix given, see Dr. Mable CURRY talking to Dr. Forde / Scott about possible transfer, patient feeling less SOB, BP has improved slightly.
--- NOTE | 2024-08-05 13:59 | PC.NURSE ---
Bladder scan completed showing rentention > 700ccs urine, 18F Kendall Cath placed w/o issue draining clear rosa urine.
--- NOTE | 2024-08-05 14:11 | P.HPCC_ITS ---
History of Present Illness Date of Service: 08/05/24 Chief Complaint: Chest pain 74-year-old gentleman who is a poor historian with past medical history of hypertension, diabetes, chronic kidney disease stage III/IV, gout presented to the ED with chest pain starting last night. Chest pain was never in onset, left-sided, radiating to the shoulder, heaviness in nature, is progressive. In the ED patient was found to be in atrial fibrillation with RVR, lab suggestive of chronic kidney disease, with troponin leaks, EKG showing nonspecific ST-T changes. Cardiology was consulted who upon for conservative management, echo showed depressed EF to 25%, normal RV. Patient was started on Cardizem drip for the management of AFib with RVR, heparin drip for possible acute coronary syndrome and is currently hypertensive to 200s SBP so MICU was consulted for admission. Apparently patient had a flu-like symptoms 2 days ago, he presented to the ED 2 days ago with gout at that point he was in sinus rhythm. Review of Systems 2 Constitutional: Constitutional: Reports body ache(s), Reports chills and Denies daytime sleepiness Eyes: Eyes: Denies exophthalmos and Denies change in vision ENT: Denies Normal hearing present and Denies bleeding gums Cardiovascular: Cardiovascular: Reports chest pain, Reports chest pain at rest, Reports diaphoresis and Reports syncope Respiratory: Respiratory: Denies chest congestion and Denies cough Genitourinary: Genitourinary: Denies change in libido and Denies hematuria Musculoskeletal: Musculoskeletal: Denies back pain, Denies myalgias and Denies atrophy Neurologic: Denies Normal hearing present, Denies Neuro-related abnormal movements, Denies behavioral changes and Reports syncope Psychiatric: Psychiatric: Denies behavioral changes, Denies change in appetite and Denies change in libido Endocrine: Endocrine: Denies change in libido and Denies cold intolerance FORMERLY [facility], [facility]–1983 Past Medical History Medical History Benign prostatic hyperplasia with lower urinary tract symptoms GERD (gastroesophageal reflux disease) Social History Social History Unable to assess alcohol history related to: Unknown Alcohol intake: never Smoked in Last 30 Days: No Use of substances other than those prescribed or required for medical reasons: No Advance Directives: No Advance Directives Information Provided: Yes Do you have a plan to hurt others: No Plan Meds Allergies Allergy/AdvReac Type Severity Reaction Status Date / Time No Known Allergies Allergy Verified 08/05/24 08:02 Active Medications: Current Medications Acetaminophen (Acetaminophen 325 Mg Tablet) 650 mg PO Q6H PRN PRN Reason: Pain, Mild 1-3,fever,headache Calcium Carbonate (Calcium Carbonate 750 Mg Tab.Chew) 750 mg PO Q4H PRN PRN Reason: Heartburn Furosemide (Furosemide 20 Mg/2 Ml Vial) 20 mg IVPUSH Q12H SOURAV; Protocol Last Admin: 08/05/24 13:30 Dose: 20 mg Heparin Sodium (Porcine) (Heparin Sodium,Porcine 5,000 Unit/Ml Vial) 3,900 unit 40 unit/kg (3900 unit) IVPUSH PROTOCOL BOLUS PRN; Protocol PRN Reason: 40 unit/kg - Heparin Protocol Heparin Sodium (Porcine) (Heparin Sodium,Porcine 5,000 Unit/Ml Vial) 7,800 unit 80 unit/kg (7800 unit) IVPUSH PROTOCOL BOLUS PRN; Protocol PRN Reason: 80 unit/kg - Heparin Protocol Diltiazem HCl 125 mg/ Sodium (Chloride) 125 mls @ 0 mls/hr IVCONT .Q0M SOURAV; Protocol Last Titration: 08/05/24 08:11 Dose: Infused Heparin Sodium/Sodium Chloride (Heparin Sodium,Porcine/1/2ns) 25,000 unit in 250 mls @ 0 mls/hr IVCONT .Q0M SOURAV; Protocol Last Admin: 08/05/24 10:38 Dose: 10.27 units/kg/hr, 10 mls/hr Amiodarone HCl 900 mg/ Sodium (Chloride) 518 mls @ 34.533 mls/hr IVCONT .Q15H1M SOURAV; Protocol Last Admin: 08/05/24 10:33 Dose: 1 mg/min, 34.53 mls/hr Nitroglycerin/Dextrose (Nitroglycerin/D5w) 100 mg in 250 mls @ 0 mls/hr IVCONT .Q0M SOURAV; Protocol Last Titration: 08/05/24 13:59 Dose: 40 mcg/min, 6 mls/hr Magnesium Hydroxide (Milk Of Magnesia 30 Ml Oral.Susp) 30 ml PO DAILY PRN PRN Reason: Constipation Melatonin (Melatonin 3 Mg Tablet) 6 mg PO BEDTIME PRN PRN Reason: Insomnia Nitroglycerin (Nitroglycerin 0.4 Mg Tab.Subl) 0.4 mg SUBLINGUAL Q5MX3 PRN PRN Reason: CHF Last Admin: 08/05/24 13:23 Dose: 0.4 mg Sodium Chloride (0.9 % Sodium Chloride Flush 3 Ml Syringe) 3 [facility] Medications ?Medication ?Instructions ?Recorded ?Confirmed ?Last Taken ?Type amitriptyline 25 mg tablet 25 mg PO BEDTIME 12/24/22 Unknown History amlodipine 10 mg tablet 10 mg PO DAILY 12/24/22 Unknown History esomeprazole magnesium 40 mg 40 mg PO DAILY 12/24/22 Unknown History capsule,delayed release glipizide 10 mg tablet 10 mg PO BID 12/24/22 Unknown History melatonin 10 mg capsule 10 mg PO BEDTIME 12/24/22 Unknown History metoprolol succinate 100 mg 100 mg PO DAILY 12/24/22 Unknown History tablet,extended release 24 hr multivitamin with folic acid 400 1 tab PO ONCE 12/24/22 Unknown History mcg tablet (Daily-Maria Elena (with folic acid)) Physical Exam 2 Vital Signs: Vital Signs: Last Vital Signs Temp 98.6 F 08/05/24 07:48 Pulse 92 08/05/24 13:59 Resp 20 08/05/24 12:23 BP 201/105 H 08/05/24 13:59 Pulse Ox 95 08/05/24 12:23 O2 Del Method Nasal Cannula 08/05/24 12:23 O2 Flow Rate 2 08/05/24 12:23 BMI result Body Mass Index 34.7 General: acute distress, ill appearing and tired appearing Nutritional Appearance: well nourished and overweight Eyes: appearance normal, both eyes and all related structures; Alignment and Position: alignment normal and position normal Neck: No lymphadenopathy, no thyromegaly Resp: bilateral air entry equal, occasional added sounds present Cardio: Regular rate, regular rhythm; Heart sounds: S1 normal heart sound present and S2 normal heart sound present GI: soft, nontender, no guarding, no hepatosplenomegaly : bladder normal to inspection, bladder normal to palpation, no renal angle tenderness Skin: no rashes or lesions noted and elasticity normal Neuro: oriented to person, oriented to place, oriented to time and moves all extremities Neuro: Cranial nerves: No Normal hearing present Results Labs 08/05/24 10:19 08/05/24 07:46 Labs: Laboratory Results - last 24 hr 08/05/24 08/05/24 08/05/24 07:34 07:46 10:19 MCV 90.9 90.0 MCH 29.9 30.2 MCHC 32.9 33.6 RDW 13.1 13.1 Plt Count 364 371 MPV 10.2 9.5 Immature Gran % (Auto) 0.8 H Neut % (Auto) 77.3 H Lymph % (Auto) 10.4 L [place] % (Auto) 8.6 Eos % (Auto) 2.4 Baso % (Auto) 0.5 Lymph # (Auto) 1.2 [place] # (Auto) 1.0 Eos # (Auto) 0.3 Baso # (Auto) 0.1 Abs Immat Gran (auto) 0.09 H Absolute Neuts (auto) 8.6 H Absolute Nucleated RBC 0.000 0.000 Nucleated RBC % (auto) 0.0 0.0 PT 12.0 12.2 INR 1.0 1.0 APTT 27.3 aPTT Heparin Protocol 28.8 L Anion Gap 16 Estim Creat Clear Calc 27.9 Estimated GFR 26 Random Glucose 201 H Calcium 8.0 L Total Bilirubin 0.7 AST 29 ALT 16 Alkaline Phosphatase 73 B-Natriuretic Peptide 2788 H Total Protein 7.5 Albumin 3.3 L Influenza Type A (PCR) POSITIVE A Influenza Type B (PCR) NEGATIVE RSV RNA Qual (PCR) NEGATIVE SARS-CoV-2 RNA (RT-PCR) NEGATIVE Imaging Radiologist's Impressions: Impressions Chest X-Ray 08/05/24 07:29 IMPRESSION: Consider pulmonary edema in the correct clinical settings with small to moderate volume right-sided pleural effusion. Granuloma, right upper lung lobe. Electronically signed by: Pranav Frye MD 08/05/2024 08:02 AM [facility] Assessment and Plan (1) Elevated troponin: Status: Acute (2) Myocardial infarction: Status: Acute (3) Atrial fibrillation with RVR: Status: Acute (4) Diabetes mellitus: Status: Acute (5) GERD (gastroesophageal reflux disease): Status: Acute (6) Benign prostatic hyperplasia with lower urinary tract symptoms: Status: Acute (7) Influenza: Status: Acute (8) Bilateral primary osteoarthritis of knee: Status: Acute (9) Gout: Status: Acute Plan NSTEMI: Patient has troponin leak in the setting of CKD, troponin tends to increase from 600 to 900 EKG suggestive of diffuse ST depression, possibly from ischemic event versus myocarditis TTE showed EF of 25% with some regional wall motion abnormalities, normal Cardiology consulted, who opined to start on heparin drip, aspirin and high- intensity statin; he is being accepted at [facility] for possible need for cardiac intervention waiting on a bed. Hypertensive urgency: We will start on nitroglycerin drip, titrate to keep the SBP less than 140 mm Hg We will restart his home medications Atrial fibrillation with RVR: On amiodarone drip for rhythm control On Cardene drip for rate control Heparin for anticoagulation Chronic kidney disease stage III/IV: Creatinine stable around 2.5 which is his baseline Closely monitor I's and O's Avoid nephrotoxic medications Influenza pneumonia: will start oseltamavir Diabetes mellitus: sliding scale insulin POC glucose q6h Prophylaxis: heparin, pantoprazole Total time managing care of this patient today: 35 minutes.
--- NOTE | 2024-08-05 15:10 | PHA.MEDREC ---
Addendum entered by Johan Alvarado [facility] 08/05/24 15:15: MED REC CHECKED BY [facility] Original Note: Pharmacy Consult ? Medication Reconciliation Pharmacy has completed the medication reconciliation. Spoke with patients son over the phone. He was able to confirm a few of this medications. He said he is still taking the 3 medicatoins he was put on from here for gout. Used claim history to confirm directions and rest of medications.
[2024-08-05] MEDS: Furosemide 100 MG/10 ML VIAL 80 MG IVPUSH (15:19)
[2024-08-05] MEDS: Aspirin Enteric Coated 81 MG TABLET.DR PO (15:19)
--- NOTE | 2024-08-05 15:22 | PC.NURSE ---
Confirmed with ICU provider 80 of Lasix okay on top of 40 already given, provider okay'd dose, patient to be transferred to ICU for admission while waiting for bed in [place]. Nitro gtt titrated up to 120 mcg/min d/t pressure
[2024-08-05] MEDS: 0.9 % Sodium Chloride Flush 3 ML SYRINGE IVFLUSH (15:24)
--- NOTE | 2024-08-05 15:40 | P.DS_ITS ---
DS: Providers Provider Date of Service: 08/05/24 <Karin Forde MD - Last Filed: 08/06/24 11:30> Date of admission: 08/05/24 10:39 <Karin Forde MD - Last Filed: 08/06/24 11:30> Date of discharge: 08/05/24 <Karin Forde MD - Last Filed: 08/06/24 11:30> Primary care physician: Uma Friedman MD <Karin Forde MD - Last Filed: 08/06/24 11:30> Consults: 08/05/24 09:38 Consult to Cardiology Stat Consulting Provider: [facility] Reason for consultation: a fib elevated tropi 08/05/24 12:56 Consult to Cardiology Routine Consulting Provider: [facility] Reason for consultation: nstemi Has provider been notified: No 08/05/24 13:58 Consult to Critical Care Routine Consulting Provider: Yassine Narayan Reason for consultation: nsetmi/chf /htn emergency Has provider been notified: No <Karin Forde MD - Last Filed: 08/06/24 11:30> Attending physician on discharge: Karin Forde <Karin Forde MD - Last Filed: 08/06/24 11:30> Discharging clinician: Karin Forde <Karin Forde MD - Last Filed: 08/06/24 11:30> DS: Transfer Hospital Acceptance Reason for Transfer: Acute coronary syndrome <Yassine Narayan MD - Last Filed: 08/06/24 11:20> Name of Facility: [facility] <Yassine Narayan MD - Last Filed: 08/06/24 11:20> DS: Diagnosis Discharge Diagnosis (1) Myocardial infarction: Status: Acute <Karin Forde MD - Last Filed: 08/06/24 11:30> (2) Influenza: Status: Acute <Karin Forde MD - Last Filed: 08/06/24 11:30> (3) Elevated troponin: Status: Acute <Karin Forde MD - Last Filed: 08/06/24 11:30> DS: Summary Hospital Course Hospital Course: HPI:74-year-old male with pmhx of hypertension, CKD, BPH gout,dm2 : Patient came to the hospital because of chest pain and palpitations, also has some dry cough, his chest pain radiating to the left side, he said the chest pain started overnight. Lab imaging [place]: Found to have elevated troponin, EKG -AFib with rapid ventricular response and diffuse ST changes, elevated troponin, in addition found to have influenza a cxr:Consider pulmonary edema in the correct clinical settings with small to moderate volume right-sided pleural effusion. Patient was started on IV heparin and requested admission for possible NSTEMI, and influenza a; patient was started IV heparin drip, also Tamiflu , Cardizem drip for AFib with RVR, echo added as well as Cardiology evaluation Subsequently patient was also started having shortness of breath added IV Lasix. Patient blood pressure also started going up-so also added nitro drip. Hospital course: Patient came to the hospital because of chest pain along with palpitations: Further workup also found to have elevated troponin, also influenza A infection: For AFib patient was started on Cardizem and amiodarone drip, also for NSTEMI started on IV heparin-cardiology was consulted: NSTEMI: Patient has troponin leak in the setting of CKD, troponin tends to increase from 600 to 900 EKG suggestive of diffuse ST depression. TTE showed EF of 25% with some regional wall motion abnormalities, normal Cardiology consulted, who opined to start on heparin drip, aspirin and statin he is being accepted at [facility], accepting physician DR Haas- for possible need for cardiac intervention waiting on a bed. Patient is accepted by Dr. Haas in [facility]. fax no is [phone]. possible Chf with reduced EF: IV Lasix for CHF. Also receiving Tamiflu for influenza A. Hypertensive urgency: We will start on nitroglycerin drip, titrate to keep the SBP less than 140 mm Hg We will restart his home medications Atrial fibrillation with RVR:hr improving On amiodarone drip for rhythm control Heparin for anticoagulation Chronic kidney disease stage III/IV: Creatinine stable around 2.5 which is his baseline Closely monitor I's and O's Avoid nephrotoxic medications Diabetes mellitus: sliding scale insulin POC glucose q6h Medical reconciliation is still pending-which needs to be done before discharge, pharmacy is aware to complete medical reconciliation-above is informed to ICU also. <Karin Forde MD - Last Filed: 08/06/24 11:30> Time Attestation Total time managing care of this patient today: 40 mintues. <Karin Forde MD - Last Filed: 08/06/24 11:30> Discharge Coordination Time (in mins): 40 min <Karin Forde MD - Last Filed: 08/06/24 11:30> Quality: Safe Use of Opioids Does Pt have an Active Cancer Diagnosis on the Problem List?: No <Karin Forde MD - Last Filed: 08/06/24 11:30> Quality: Stroke Does the patient have a stroke diagnosis?: No <Karin Forde MD - Last Filed: 08/06/24 11:30> Physical Exam Vital Signs: Vital Signs: Last Vital Signs Temp 98.2 F 08/05/24 14:33 Pulse 88 08/05/24 15:22 Resp 18 08/05/24 14:33 BP 193/114 H 08/05/24 15:22 Pulse Ox 98 08/05/24 14:33 O2 Del Method Nasal Cannula 08/05/24 14:33 O2 Flow Rate 4 08/05/24 14:33 BMI result Body Mass Index 34.7 <Karin Forde MD - Last Filed: 08/06/24 11:30> Appearance: Alert.? Oriented X3.? sob improving cvs: rrr, [id number] . res: air entry diminshed, few sacttered rales abd: no rebound or guarding ,nt, bs present. ext pulses present , no cyanosis . neuro: axo3 , nonfocal. <Karin Forde MD - Last Filed: 08/06/24 11:30> DS: Data Data Completed and Pending Labs on day of discharge: Laboratory Results - last 24 hr 08/05/24 08/05/24 08/05/24 07:34 07:46 10:19 WBC 11.2 H 11.8 H RBC 3.28 L 3.31 L Hgb 9.8 L 10.0 L Hct 29.8 L 29.8 L MCV 90.9 90.0 MCH 29.9 30.2 MCHC 32.9 33.6 RDW 13.1 13.1 Plt Count 364 371 MPV 10.2 9.5 Immature Gran % (Auto) 0.8 H Neut % (Auto) 77.3 H Lymph % (Auto) 10.4 L [place] % (Auto) 8.6 Eos % (Auto) 2.4 Baso % (Auto) 0.5 Lymph # (Auto) 1.2 [place] # (Auto) 1.0 Eos # (Auto) 0.3 Baso # (Auto) 0.1 Abs Immat Gran (auto) 0.09 H Absolute Neuts (auto) 8.6 H Absolute Nucleated RBC 0.000 0.000 Nucleated RBC % (auto) 0.0 0.0 PT 12.0 12.2 INR 1.0 1.0 APTT 27.3 aPTT Heparin Protocol 28.8 L Sodium 141 Potassium 4.1 Chloride 110 H Carbon Dioxide 19 L Anion Gap 16 BUN 43 H Creatinine 2.46 H Estim Creat Clear Calc 27.9 Estimated GFR 26 Random Glucose 201 H Calcium 8.0 L Total Bilirubin 0.7 AST 29 ALT 16 Alkaline Phosphatase 73 Troponin I High Sens 679.0 H* 988.2 H* B-Natriuretic Peptide 2788 H Total Protein 7.5 Albumin 3.3 L Influenza Type A (PCR) POSITIVE A Influenza Type B (PCR) NEGATIVE RSV RNA Qual (PCR) NEGATIVE SARS-CoV-2 RNA (RT-PCR) NEGATIVE <Karin Forde MD - Last Filed: 08/06/24 11:30> Imaging Chest x-ray: Radiologist's impression: ITS Impressions Chest X-Ray 08/05/24 07:29 IMPRESSION: Consider pulmonary edema in the correct clinical settings with small to moderate volume right-sided pleural effusion. Granuloma, right upper lung lobe. Electronically signed by: Pranav Frye MD 08/05/2024 08:02 AM EST RP Chest X-Ray 08/05/24 13:22 IMPRESSION: Worsening pulmonary edema increased bilateral small pleural effusions. Electronically signed by: Pranav Frye MD 08/05/2024 02:37 PM EST RP <Karin Forde MD - Last Filed: 08/06/24 11:30> Discharge Plan Discharge Anticipated Discharge Date/Time: 08/05/24 13:47 <Karin Forde MD - Last Filed: 08/06/24 11:30> Patient Disposition: General Acute Hospital <Karin Forde MD - Last Filed: 08/06/24 11:30> Discharge Diagnosis: AFib with RVR, hypertension urgency, NSTEMI, possible CHF, influenza a <Karin Forde MD - Last Filed: 08/06/24 11:30> AFib with RVR, hypertension urgency, NSTEMI, possible CHF, influenza a <Yassine Narayan MD - Last Filed: 08/06/24 11:20> Referrals: Uma Chung MD [Primary Care Provider] - 1 Week <Karin Forde MD - Last Filed: 08/06/24 11:30> Discharge Medications: New heparin(porcine) in 0.45% NaCl 25,000 unit/250 mL Parenteral Solution 25,000 unit continuous IV infusion .Q0M Qty: 1 0RF heparin (porcine) 5,000 unit/mL Solution 3,900 unit IVPUSH PROTOCOL BOLUS PRN (Reason: 40 Unit/Kg - Heparin Protocol) Qty: 1 0RF nitroglycerin in 5 % dextrose 100 mg/250 mL (400 mcg/mL) Solution 1 ml continuous IV infusion .Q0M Qty: 1 0RF oseltamivir [Tamiflu] 75 mg Capsule 75 mg PO Q24H Qty: 1 0RF heparin (porcine) 5,000 unit/mL Solution 7,800 unit IVPUSH PROTOCOL BOLUS PRN (Reason: 80 Unit/Kg - Heparin Protocol) Qty: 1 0RF furosemide 10 mg/mL Solution 20 mg IVPUSH Q12H Qty: 1 0RF Protocol: Hold for SBP< HOLD for SBP < : 90 amiodarone in dextrose 5 % 900 mg/500 mL (1.8 mg/mL) solution 150 mg IV .continu Qty: 1 0RF Rx Instructions: continue current rate Continued metoprolol succinate 100 mg tablet extended release 24 hr 100 mg PO DAILY esomeprazole magnesium 40 mg capsule,delayed release(DR/EC) 40 mg PO DAILY Discontinued naproxen 500 mg tablet 500 mg PO BID Qty: 14 0RF No Action cromolyn 4 % drops 1 drp ophthalmic (eye) DAILY PRN (Reason: Conjunctivitis ) sildenafil [Viagra] 100 mg tablet 100 mg PO DAILY PRN (Reason: Sexual Activity) oxycodone-acetaminophen 5-325 mg tablet 1 tab PO Q6H PRN (Reason: Severe Pain (Scale Score 7-10)) famotidine 20 mg tablet 20 mg PO BID hydrochlorothiazide 12.5 mg tablet 12.5 mg PO QAM simvastatin 10 mg tablet 10 mg PO BEDTIME prednisone 20 mg tablet 20 mg PO DAILY Qty: 7 0RF omeprazole 40 mg capsule,delayed release(DR/EC) 40 mg PO DAILY Qty: 7 0RF glipizide 10 mg tablet 10 mg PO BID multivitamin with folic acid [Daily-Maria Elena (with folic acid)] 400 mcg tablet 1 tab PO ONCE melatonin 10 mg capsule 10 mg PO BEDTIME PRN (Reason: Sleep) <Karin Forde MD - Last Filed: 08/06/24 11:30> Discharge Orders: Discharge Order (Routine); Ordered 08/05/24 Ordered By: Karin Forde <Karin Forde MD - Last Filed: 08/06/24 11:30> Diet: Advance to usual diet <Karin Forde MD - Last Filed: 08/06/24 11:30> Advance to usual diet <Yassine Narayan MD - Last Filed: 08/06/24 11:20> Activity on Discharge: As tolerated <Karin Forde MD - Last Filed: 08/06/24 11:30> As tolerated <Yassine Narayan MD - Last Filed: 08/06/24 11:20> Stand Alone Forms: Patient Portal Discharge page <Karin Forde MD - Last Filed: 08/06/24 11:30> Print Language: Thai <Karin Forde MD - Last Filed: 08/06/24 11:30> Care Plan Goals: Patient came to the hospital because of chest pain along with palpitations: Further workup also found to have elevated troponin, also influenza A infection: For AFib patient was started on Cardizem and amiodarone drip, also for NSTEMI started on IV heparin-cardiology was consulted: Patient was continued on IV heparin, echo was done found to have low EF, in addition patient is also having uncontrolled hypertension and shortness of breath-likely going into HFrEF: Patient is currently on Cardizem drip as well as nitro drip for blood pressure control, IV Lasix for CHF. Also receiving Tamiflu for influenza A. Above discussed with the cardiology -patient will benefit from tertiary care transfer for possible cardiac catheterization for NSTEMI. Patient is accepted by Dr. Haas in [facility]. fax no is [phone]. <Karin Forde MD - Last Filed: 08/06/24 11:30> Health Concerns: As above. <Karin Forde MD - Last Filed: 08/06/24 11:30> Plan of Treatment: As above. <Karin Forde MD - Last Filed: 08/06/24 11:30> Assessment: As above. <Karin Forde MD - Last Filed: 08/06/24 11:30> Discharge Date/Time: 08/05/24 21:27 <Karin Forde MD - Last Filed: 08/06/24 11:30>
--- NOTE | 2024-08-05 15:58 | PC.NURSE ---
RN to RN phone report given to Tiago, all questions answered, patient verbalized understanding.
[2024-08-05 16:58] LABS: Glucose, Whole Blood 231 mg/dL (60-115)
[2024-08-05 17:16] LABS: PTT Heparin Drip 35.8 SEC (53-77.9)
[2024-08-05] MEDS: Insulin Lispro 100 UNIT/ML 3 ML VIAL SUBCUT (17:18)
[2024-08-05] MEDS: Heparin Sodium,Porcine 5,000 UNIT/ML VIAL 7800 UNIT IVPUSH (19:12)
[2024-08-05] MEDS: Metoprolol Tartrate 25 MG TABLET PO (19:32)
[2024-08-05] MEDS: Atorvastatin Calcium 80 MG TABLET PO (19:33)
--- NOTE | 2024-08-05 19:44 | PC.NURSE ---
Addendum entered by Chucho Ventura RN 08/05/24 21:18: EMS PRESENT AND TRANSFERED PATIENT FROM UNIT AT 8:25PM...[facility] NOTIFIED OF TRANSPORT Original Note: REPORT CALLED TO TOSHIA MARINA AT [facility].....TO TRANSFER TO [facility]...[facility] UN[facility]..ROOM 120...ACCEPTING MD= DR CHEN PER TOSHIA MARINA..LIPITOR 80MG PO AND LOPRESSOR 25MG PO GIVEN..DENIES NAUSEA OR PAIN...NSR..HR 80'S..ISOLATED PAC...HEPARIN DRIP 14.27 U/KG/HR..AMIODARONE 0.5 MG/MIN...IV NTG 120 MCG/MIN...ROBINS DRAINING YELLOW URINE
--- NOTE | 2024-08-05 19:46 | HE.ICUCC ---
ICU Critical Care Nursing Note ICU Day #:1 Neuro: A+Ox4. cooperative, pleasant, Cardiac: multiple cardiac drips (see mar), denies chest pain, Resp: denies SOB, O2 weened to RA GI/: reports regular BM prior to admission Integumentary/Musculoskeletal: increased WOB on exertion, bedrest, mild weakness to extremities, uses cane at home, skin is clean/dry/intact Psychosocial (family etc.): Son in [place] who visits and cares for. Another son lives in [place]. patient comes from home alone without services. states his son helps care for him Infectious Disease: droplet precautions. (FLU A) access: Bilateral Ultrasound Guided 20g PLAN: patient awaiting bed in [facility] pending need for cardiac cath related to NSTEMI
== END 2024-08-05 21:27 | disposition short-term general hospital (02) | DRG 280 ==
LOC: HO.ED 08:09 → HO.EDOVER 10:40 → HO.ICU 15:19
PROVIDERS: Admitting Provider Internal Medicine; Emergency Provider Emergency Medicine; PCP Internal Medicine; Visit Provider Internal Medicine Critical Care Medicine
DX: I21.4 Non-ST elevation (NSTEMI) myocardial infarction (principal); I50.21 Acute systolic (congestive) heart failure; J10.01 Influenza due to other identified influenza virus with the same other identified influenza virus pneumonia; I13.0 Hypertensive heart and chronic kidney disease with heart failure and stage 1 through stage 4 chronic kidney disease, or unspecified chronic kidney disease; I48.91 Unspecified atrial fibrillation; N18.30 Chronic kidney disease, stage 3 unspecified; E11.22 Type 2 diabetes mellitus with diabetic chronic kidney disease; M10.9 Gout, unspecified; N40.0 Benign prostatic hyperplasia without lower urinary tract symptoms; I16.0 Hypertensive urgency; Z79.52 Long term (current) use of systemic steroids; Z79.84 Long term (current) use of oral hypoglycemic drugs; Z79.899 Other long term (current) drug therapy
CPT/HCPCS: 0241U; 36415; 71045; 80053; 82947; 83880; 84484; 85025; 85027; 85610; 85730; 93005; 93306; 99285; J0282; J0283; J1644; J1940; J2305; Q9957

== ENCOUNTER → 2024-08-05 07:29 | Outpatient (BNV) | payer OTHER, SELFPAY | PROVIDERS: Emergency Provider Emergency Medicine; PCP Internal Medicine; Visit Provider Radiology Diagnostic Radiology | DX: J90 Pleural effusion, not elsewhere classified (principal) | CPT/HCPCS: 71045 ==

== ENCOUNTER → 2024-08-05 08:07 | Outpatient (BNV) | payer OTHER, SELFPAY | PROVIDERS: Emergency Provider Emergency Medicine; PCP Internal Medicine; Visit Provider Internal Medicine Cardiovascular Disease | DX: I48.91 Unspecified atrial fibrillation (principal); I21.9 Acute myocardial infarction, unspecified; I42.2 Other hypertrophic cardiomyopathy | CPT/HCPCS: 93010; 93306; 99223 ==

== ENCOUNTER → 2024-08-05 10:39 | Outpatient (BNV) | payer OTHER, SELFPAY | PROVIDERS: Admitting Provider Internal Medicine; Emergency Provider Emergency Medicine; PCP Internal Medicine; Visit Provider Internal Medicine | DX: I21.4 Non-ST elevation (NSTEMI) myocardial infarction (principal); J11.1 Influenza due to unidentified influenza virus with other respiratory manifestations; R79.89 Other specified abnormal findings of blood chemistry | CPT/HCPCS: 99222 ==

== ENCOUNTER → 2024-08-05 10:39 | Outpatient (BNV) | payer OTHER, SELFPAY | PROVIDERS: Admitting Provider Internal Medicine; Emergency Provider Emergency Medicine; PCP Internal Medicine; Visit Provider Internal Medicine Critical Care Medicine | DX: I48.91 Unspecified atrial fibrillation (principal); I21.9 Acute myocardial infarction, unspecified; E11.9 Type 2 diabetes mellitus without complications; R79.89 Other specified abnormal findings of blood chemistry; K21.9 Gastro-esophageal reflux disease without esophagitis; N40.1 Benign prostatic hyperplasia with lower urinary tract symptoms; J11.1 Influenza due to unidentified influenza virus with other respiratory manifestations; M17.0 Bilateral primary osteoarthritis of knee; M10.9 Gout, unspecified | CPT/HCPCS: 99239; 99499 ==

== ENCOUNTER 2024-10-08 09:35 | Emergency (ER) | payer OTHER, SELFPAY ==
[2024-10-08 09:48] VITALS: BP 113/72; BP 137/73; PULSE 90; PULSE 96; RESP 18; TEMP 36.8; O2SAT 100; BMI 29.4
[2024-10-08 09:49] VITALS: BP 113/72; PULSE 98; RESP 16; TEMP 36.8; O2SAT 100
[2024-10-08 10:58] LABS: MANUAL DIFF FLAG NO
[2024-10-08 11:01] LABS: Basophils Absolute Auto 0.1 X10*3/uL (0.0-0.2); Basophils Percent Auto 0.7 % (0-2); Eosinophils Absolute Auto 0.2 X10*3/uL (0.0-0.4); Hematocrit 22.9 % (42.0-52.0); Hemoglobin 7.5 g/dl (14.0-18.0); Imm Gran Abs Auto 0.06 X10*3/uL (0.00-0.03); Imm Gran Pct Auto 0.6 % (0.0-0.4); Lymphocytes Absolute Auto 1.7 X10*3/uL (1.2-4.9); Lymphocytes Percent Auto 17.3 % (20-40); Mean Corpuscular HGB Conc 32.8 g/dl (31.0-36.0); Mean Corpuscular Hemoglobin 29.6 pg (27.0-33.0); Mean Corpuscular Volume 90.5 fL (80.0-98.0); Mean Platelet Volume 9.6 fL (9.4-12.4); Neutrophils Absolute Auto 6.7 x10*3/uL (2.0-8.3); Neutrophils Percent Auto 69.4 % (45-73); Platelet Count 338 X10*3/uL (160-400); Red Blood Count 2.53 X10*6/uL (4.60-5.80); Red Cell Distribution Width 13.3 % (11.0-16.0); White Blood Count 9.7 X10*3/uL (4.8-10.8)
--- NOTE | 2024-10-08 11:08 | PC.NURSE ---
Report received. Taken over care at this time.
--- NOTE | 2024-10-08 11:13 | ED.LOWEXIN ---
HPI - Extremity Injury (Lower) General Chief Complaint: Extremity Injury, Lower Stated Complaint: ZHAO LEG PAIN PER EMS Time Seen by Provider: 10/08/24 11:06 Source: patient and family ( son) Mode of arrival: ambulatory Limitations: language barrier ( Ethiopian speaking only, [facility] [place] [employer] interpreter used) History of Present Illness ED Provider: Dr. Jose Luis Whiteside HPI Narrative: 74-year-old male with a history of PAD, MT, atrial fibrillation, diabetes mellitus, , BPH, GERD, gout, osteoarthritis bilateral knees right greater than left who presents emergency department for evaluation of bilateral knee pain right greater than left. Patient states that he has had pain and swelling in his right knee a 2 months. He states that last night the pain and swelling became worse to the point where his pain is now 10/10. Patient states the pain feels similar to when he has had gout in the past. He denied fever, chills, chest pain, shortness of breath, nausea, vomiting or abdominal pain. The son states the patient had a blood clot to an artery in his left lower extremity which was recently treated at [facility] with angioplasty Related Data Home Medications ?Medication ?Instructions ?Recorded ?Confirmed esomeprazole magnesium 40 mg 40 mg PO DAILY 12/24/22 08/05/24 capsule,delayed release glipizide 10 mg tablet 10 mg PO BID 12/24/22 08/05/24 melatonin 10 mg capsule 10 mg PO BEDTIME PRN Sleep 12/24/22 08/05/24 metoprolol succinate 100 mg 100 mg PO DAILY 12/24/22 08/05/24 tablet,extended release 24 hr multivitamin with folic acid 400 1 tab PO ONCE 12/24/22 08/05/24 mcg tablet (Daily-Maria Elena (with folic acid)) cromolyn 4 % eye drops 1 drp ophthalmic (eye) DAILY PRN 08/05/24 08/05/24 Conjunctivitis famotidine 20 mg tablet 20 mg PO BID 08/05/24 08/05/24 hydrochlorothiazide 12.5 mg tablet 12.5 mg PO QAM 08/05/24 08/05/24 oxycodone-acetaminophen 5 mg-325 1 tab PO Q6H PRN Severe Pain 08/05/24 08/05/24 mg tablet (Scale Score 7-10) sildenafil 100 mg tablet (Viagra) 100 mg PO DAILY PRN Sexual Activity 08/05/24 08/05/24 simvastatin 10 mg tablet 10 mg PO BEDTIME 08/05/24 08/05/24 Previous Rx's ?Medication ?Instructions ?Recorded naproxen 500 mg tablet 500 mg PO BID #14 tabs 08/01/24 omeprazole 40 mg capsule,delayed 40 mg PO DAILY #7 caps 08/01/24 release prednisone 20 mg tablet 20 mg PO DAILY #7 tabs 08/01/24 oxycodone 5 mg tablet 5 mg PO Q6H PRN pain #14 tabs 10/08/24 prednisone 20 mg tablet 40 mg (2 x 20 mg) PO DAILY 5 days 10/08/24 #10 tabs Allergies Allergy/AdvReac Type Severity Reaction Status Date / Time No Known Allergies Allergy Verified 10/08/24 09:54 Review of Systems Review of Systems: Yes all other systems are reviewed and are negative [facility] Past Medical History Medical History Benign prostatic hyperplasia with lower urinary tract symptoms GERD (gastroesophageal reflux disease) Social History Social History Household Members: None Housing: Apartment Do you presently have visiting nurse or other home services: No Unable to assess alcohol history related to: Unknown Alcohol intake: never Patient Tobacco Use Status: Never used Tobacco Smoked in Last 30 Days: No Second Hand Smoke Exposure: No Use of substances other than those prescribed or required for medical reasons: No Advance Directives: No Advance Directives Information Provided: Yes Do you have a plan to hurt others: No Plan Physical Exam Vital Signs: Vital Signs: Last Vital Signs Temp 98.2 F 10/08/24 15:48 Pulse 83 10/08/24 15:48 Resp 18 10/08/24 15:48 BP 139/81 10/08/24 15:48 Pulse Ox 100 10/08/24 15:48 O2 Del Method Room Air 10/08/24 15:48 BMI result Body Mass Index 29.4 vital signs revealed an elevated blood pressure otherwise unremarkable. Exam: General: Awake, alert in no distress Head: Normocephalic, atraumatic EENT: PERRL, Lids normal, sclera normal, conjunctiva normal, nose normal , ears normal, throat without erythema or exudates Neck: Supple, no adenopathy Lung: breath sounds symmetric, no wheezing, rales or rhonchi Chest: symmetric movement, nontender Heart: regular rate and rhythm, normal S1, S2 no murmurs or rubs Abdomen: soft, non-tender, nondistended, normal bowel sounds Back: no vertebral tenderness, no CVAT Extremities: Osteoarthritis of both knees right greater than left. Right knee has a large joint effusion, this area is very tender to palpation, there is no erythema to the skin in this area, there is increased warmth. Patient has limited range of motion of the right knee secondary to pain Neuro: Awake, alert, oriented, normal speech, cranial nerves intact, moves all extremities symmetrically Psych: Pleasant, cooperative Medications Administered Discontinued Medications Generic Name Dose Route Start Last Admin Trade Name Henry PRN Reason Stop Dose Admin Hydromorphone HCl 1 mg 10/08/24 11:32 10/08/24 11:36 Hydromorphone Hcl 1 Mg/Ml Syringe IVPUSH 10/08/24 11:33 1 mg ONCE STA Administration Protocol Hydromorphone HCl 1 mg 10/08/24 14:34 10/08/24 14:47 Hydromorphone Hcl 1 Mg/Ml Syringe IM 10/08/24 14:35 1 mg ONCE ONE Administration Protocol Lidocaine HCl 5 ml 10/08/24 11:31 10/08/24 11:55 Lidocaine Hcl 1 % Mpf 5 Ml Vial INFILTRATI 10/08/24 11:32 5 ml ONCE STA Administration Magnesium Oxide 800 mg 10/08/24 12:32 10/08/24 12:39 Magnesium Oxide 400 Mg Tablet PO 10/08/24 12:33 800 mg ONCE ONE Administration Medical Decision Making Medical Decision Making [facility] Narrative: 74-year-old male with a history of PAD, MT, atrial fibrillation, diabetes mellitus, , BPH, GERD, gout, osteoarthritis bilateral knees right greater than left who presents emergency department for evaluation of bilateral knee pain right greater than left. Patient states that he has had pain and swelling in his right knee a 2 months. He states that last night the pain and swelling became worse to the point where his pain is now 10/10. Patient states the pain feels similar to when he has had gout in the past. He denied fever, chills, chest pain, shortness of breath, nausea, vomiting or abdominal pain. vital signs revealed an elevated blood pressure otherwise unremarkable. The patient's right knee examination did reveal increased warmth, a large joint effusion and limited range of motion secondary to pain. Exam was otherwise unremarkable. Differential diagnosis: Includes but is not limited to inflammatory arthritis, gout, pseudogout, infectious arthritis, anemia, electrolyte abnormalities Course: My independent interpretation patient's laboratory evaluation is as follows, chronic normocytic anemia with an H&H 7.5 and 22.9. BUN creatinine were elevated 33 and 2.34. Chloride elevated 110, bicarb low 19. magnesium was low at 1.1. ESR elevated 115. CRP elevated 6.28. Synovial fluid: WBC 90045 with 85 neutrophils, Gram stain negative, crystal analysis consistent with calcium pyrophosphate crystals. The patient had a right knee arthrocentesis, approximately 45 cc of fluid was withdrawn from the joint space the patient did get significant relief of his pain after this procedure. The patient's laboratory evaluation is consistent with pseudo-gout with calcium pyrophosphate crystals. I did discuss this with the patient and the patient's son. the patient did have a low magnesium and was treated with magnesium 800 mg orally. Patient's pain was also treated with hydromorphone 1 mg IV x2. Patient was discharged home with a prescription for prednisone 40 mg once a day for 5 days. He was advised to not take NSAIDs secondary to his renal failure. He was advised take acetaminophen 1000 mg every 4-6 hours as needed for pain and for pain not relieved by prednisone or Tylenol he was prescribed oxycodone 5 mg every 4 hours as needed for pain. He was given printed and verbal instructions and discharged in the care of son. Admission/Observation Consideration of admission/observation: Escalation of care including admission/observation considered ( yes) Lab Data MDM Lab Attestation statement: I reviewed the patient's lab results. 10/08/24 10:54 10/08/24 10:54 Labs: Lab Results 10/08/24 10/08/24 Range/Units 10:54 12:02 WBC 9.7 (4.8-10.8) X10*3/uL RBC 2.53 L D (4.60-5.80) X10*6/uL Hgb 7.5 L D (14.0-18.0) g/dl Hct 22.9 L D (42.0-52.0) % MCV 90.5 (80.0-98.0) fL MCH 29.6 (27.0-33.0) pg MCHC 32.8 (31.0-36.0) g/dl RDW 13.3 (11.0-16.0) % Plt Count 338 (160-400) X10*3/uL MPV 9.6 (9.4-12.4) fL Immature Gran % (Auto) 0.6 H (0.0-0.4) % Neut % (Auto) 69.4 (45-73) % Lymph % (Auto) 17.3 L (20-40) % [place] % (Auto) 10.0 (2-11) % Eos % (Auto) 2.0 (0-4) % Baso % (Auto) 0.7 (0-2) % Lymph # (Auto) 1.7 (1.2-4.9) X10*3/uL [place] # (Auto) 1.0 (0.1-1.2) X10*3/uL Eos # (Auto) 0.2 (0.0-0.4) X10*3/uL Baso # (Auto) 0.1 (0.0-0.2) X10*3/uL Abs Immat Gran (auto) 0.06 H (0.00-0.03) X10*3/uL Absolute Neuts (auto) 6.7 (2.0-8.3) x10*3/uL Absolute Nucleated RBC 0.000 (0.0-0.012) X10*3/uL Nucleated RBC % (auto) 0.0 (0.0-0.2) /100WBC ESR 115 H (0-15) MM/HR Sodium 135 (135-145) mmol/L Potassium 5.1 D (3.3-5.1) mmol/L Chloride 110 H (96-108) mmol/L Carbon Dioxide 19 L (22-29) mmol/L Anion Gap 11 L (12-20) BUN 33 H (9-16) mg/dL Creatinine 2.34 H (0.5-1.4) mg/dL Estim Creat Clear Calc 32.6 Estimated GFR 27 Random Glucose 220 H (60-115) mg/dL Uric Acid 6.7 (3.4-7.0) mg/dL Calcium 8.0 L (8.4-10.2) mg/dL Magnesium 1.1 L* (1.6-2.6) mg/dL Total Bilirubin 0.5 (0.0-1.0) mg/dL AST 21 (5-37) U/L ALT < 6 (0-40) U/L Alkaline Phosphatase 99 (39-117) U/L C-Reactive Protein 6.28 H (< or = 0.50) mg/dL Total Protein 6.7 (6.5-8.0) g/dL Albumin 2.7 L (3.5-5.0) g/dL Synovial Source Right knee Synovial WBC 25.890 X10*3/uL Synovial RBC 0.006 X10*6/uL Synovial Neutrophils 85 % Synovial Lymphocytes 3 % Synovial Monocytes 12 % Synovial Uric Acid 7 Independent Historian Clinical information obtained from an independent historian. History obtained from or confirmed by: Other ( son-Stan) External Record Review External record reviewed: Inpatient record Prescription Management I considered prescription management with: Pain Medication ( oxycodone) and Other ( and anti-inflammatory steroid: Prednisone) Chronic Conditions Patient?s care impacted by: Diabetes and Other ( gout) Procedures Joint Aspiration/Injection Joint Asp./Inject. 1: Time Out Performed: No ( informed consent was signed prior to the procedure and then I never left ) Side of body: right Joint Aspirated: knee Ultrasound Guidance: No Skin Prep: Povidone-Iodine1% Local Anesthetic: lidocaine 1% Amount of anesthesia used (mL): 5 Needle Size Used: 18G Fluid Obtained: viscous ( Yellow) Total fluid obtained (mL): 45 Patient Tolerated Procedure: well Complications: none Additional Comments: Synovial fluid was sent for Gram stain, culture, cell count, crystal analysis. The patient tolerated the procedure well and had immediate relief of his pain after fluid was aspirated from the joint. Discharge Plan Discharge Clinical Impression: Pseudogout, Acute pain of right knee Patient Disposition: Home, Self-Care Instructions: Gout (ED) Additional Instructions: The fluid in your knee is consistent with pseudogout which is caused by calcium crystals as opposed to gout which is caused by uric acid crystals in your knee joint. these crystals then cause inflammation to poor into your knee and cause severe pain and swelling. Both of these conditions are a forms of inflammation arthritis. Take prednisone 20 mg pills, 2 pills once a day for 5 days. While you are taking prednisone, do not take any NSAIDs (Motrin, Advil, ibuprofen, Aleve, naproxen). increased pain medications with oxycodone Take Tylenol (acetaminophen) 500 mg pills, 2 pills every 4-6 hours as needed for pain. For pain not relieved by prednisone or Tylenol take oxycodone 5 mg pills, 1 pill every 4 hours as needed for pain. Do not drive or work while taking this medication since they can cause sleepiness. Oxycodone is a narcotic medication that can be addicting. If you are concerned about addiction you can ask the pharmacist for less pills or do not get this prescription filled. Follow-up with your doctor in 2 days. Please return to the emergency department if your symptoms get worse or if you develop any symptoms that are concerning to you. Prescriptions: New prednisone 20 mg tablet 40 mg PO DAILY 5 Days Qty: 10 0RF oxycodone 5 mg tablet 5 mg PO Q6H PRN (Reason: pain) Qty: 14 0RF Rx Instructions: Partial Fill upon patient request. No Action cromolyn 4 % drops 1 drp ophthalmic (eye) DAILY PRN (Reason: Conjunctivitis ) sildenafil [Viagra] 100 mg tablet 100 mg PO DAILY PRN (Reason: Sexual Activity) oxycodone-acetaminophen 5-325 mg tablet 1 tab PO Q6H PRN (Reason: Severe Pain (Scale Score 7-10)) famotidine 20 mg tablet 20 mg PO BID hydrochlorothiazide 12.5 mg tablet 12.5 mg PO QAM simvastatin 10 mg tablet 10 mg PO BEDTIME prednisone 20 mg tablet 20 mg PO DAILY Qty: 7 0RF naproxen 500 mg tablet 500 mg PO BID Qty: 14 0RF omeprazole 40 mg capsule,delayed release(DR/EC) 40 mg PO DAILY Qty: 7 0RF metoprolol succinate 100 mg tablet extended release 24 hr 100 mg PO DAILY glipizide 10 mg tablet 10 mg PO BID multivitamin with folic acid [Daily-Maria Elena (with folic acid)] 400 mcg tablet 1 tab PO ONCE esomeprazole magnesium 40 mg capsule,delayed release(DR/EC) 40 mg PO DAILY melatonin 10 mg capsule 10 mg PO BEDTIME PRN (Reason: Sleep) Interventions: ED Discharge Assessment Last Done: 10/08/24 15:48 Discharge Date/Time: 10/08/24 15:50 Print Language: Japanese
[2024-10-08 11:22] LABS: Alanine Aminotransferase < 6 U/L (0-40); Albumin Level 2.7 g/dL (3.5-5.0); Alkaline Phosphatase 99 U/L (39-117); Anion Gap 11 (12-20); Aspartate Amino Transferase 21 U/L (5-37); Bilirubin Total 0.5 mg/dL (0.0-1.0); Blood Urea Nitrogen 33 mg/dL (9-16); C Reactive Protein 6.28 mg/dL (< or = 0.50); Carbon Dioxide 19 mmol/L (22-29); Chloride 110 mmol/L (96-108); Creatinine Clr Calc Pharmacy 32.6; Estimated Glomerular Filt Rate 27; Glucose Random 220 mg/dL (60-115); Potassium 5.1 mmol/L (3.3-5.1); Sodium 135 mmol/L (135-145); Total Protein 6.7 g/dL (6.5-8.0); Uric Acid 6.7 mg/dL (3.4-7.0)
[2024-10-08 11:25] LABS: Magnesium 1.1 mg/dL (1.6-2.6)
--- OUTSIDE RECORDS SUMMARY | 2024-10-08 11:29 | XMS_ITS | Encounter Summary ---
Author Organization [employer] Address [address] [place] [address] Care Team Providers Care Record Retrieval Specialist Name Role Phone Uma Chung MD Primary Care Provide r Reason for Visit * Reason Comments Med Refill Encounter Details Date Type Department Care Team ([facility] st Contact Info) Description 01/02/2024 Refill [facility] [address] [place], [place] [phone] Uma Chung MD [address] [place] [address] Osteoarthritis involving multiple joints on both sides [...] Care Team (Late st Contact Info) Description 11/12/2024 1:00 PM EDT Office Visit [facility] [address] [place], [place] [phone] Atiya Samuel, OD [address] [place], [place] [phone] documented as of this encounter Visit Diagnoses Diagnosis Osteoarthritis involving multiple joints on both sides of body documented in this encounter Additional Health Concerns Assessment Noted Time PHQ-9 Depression Total Score: 0 12/13/19 23 10:21 AM EDT documented as of this encounter Care Teams Record Retrieval Specialist Relationship Specialty Start Date End Date Uma Chung MD [address] [place], [place] [phone] PCP - General Family Medicine 02/21/18 Ingeranzenobias 09/15/24 documented as of this encounter
--- OUTSIDE RECORDS SUMMARY | 2024-10-08 11:29 | XMS_ITS | Encounter Summary ---
Author Organization [employer] Address [address] [place] [address] Care Team Providers Care Traffic Control Operator Name Role Phone Uma Chung MD Primary Care Provide r Encounter Details Date Type Department Care Team (Late st Contact Info) Description 02/06/2023 Orders Only [facility] [address] [place], [place] [phone] Lay Grimaldo LPN Social History Tobacco Use [...] Description 11/12/2024 1:00 PM EDT Office Visit [facility] OPTOM[facility] [address] [place], [place] [phone] Jimmie, Atiya, OD [address] [place], [place] [phone] documented as of this encounter Visit Diagnoses Not on filedocumented in this encounter Additional Health Concerns Assessment Noted Time PHQ-9 Depression Total Score: 0 12/13/19 23 10:21 AM EDT documented as of this encounter Care Teams Traffic Control Operator Relationship Specialty Start Date End Date Uma Chung MD [address] [place] [address] PCP - General Family Medicine 02/21/18 Altranais 09/15/24 documented as of this encounter
--- OUTSIDE RECORDS SUMMARY | 2024-10-08 11:29 | XMS_ITS | Clinical Summary ---
Author Organization [facility] Address [address] [place] [phone] Phone Care Team Providers Care Data Warehousing Architect Name Role Phone Uma Chung MD Primary [...] 01/27/2018 12:00 PM EDT Plan of Treatment Upcoming Encounters Date Type Department Care Team (Late st Contact Info) Description 11/05/2024 4:00 PM EDT Office Visit [facility] [address] [place] [phone] Marino Lawson MD [phone] [facility] [address] [place] [address] Health Maintenance Due Date Last Done Comments Diabetes: Ophthalmology Exam 07/04/2020 Diabetes: Pedal Pulse Checked 07/04/2020 Diabetes: Sensory Foot Exam 07/04/2020 Diabetes: Visual Foot Exam 07/04/2020 Diabetes: Hemoglobin A1C 11/06/2024 025, 08/05/2024, 05/06/2024, Additional history exists Pneumococcal Vaccine: 50+ Years Completed 07/05/2023 Pneumococcal Vaccine: Peds (0 to 5 Years) and At-Risk Patients (6 to 49 Years) Discontinued 07/05/2023 Influenza Vaccine Completed 05/06/2024, 02/24/2018 Hepatitis B Vaccine Aged Out No longe [...] % PVNMA 03/29/2020 us Rtama Conversion LAB [id number] LICITED RESULTS Final Result PVNMA from Last 3 Months or Most Recently Relevant to Health Maintenance Insurance [facility] Care Teams Data Warehousing Architect Relationship Specialty Start Date End Date Uma Chung MD [address] [place] [phone] PCP - General 06/13/20
--- OUTSIDE RECORDS SUMMARY | 2024-10-08 11:29 | XMS_ITS | Encounter Summary ---
Author Organization [employer] Address [address] [place] [address] Care Team Providers Care Vice President Payer Name Role Phone Uma Chung MD Primary Care Provide r Reason for Visit * Reason Onset Date Comments Nurse Triage 01/14/2024 Encounter Details Date Type Department Care Team ([facility] st Contact Info) Description 01/14/2024 Telephone [facility] MED[facility]INE [address] [place] [address] Uma Chung MD [address] [place], [place] [phone] Nurse Triage Social History Tobacco Use Types [...] Description 11/12/2024 1:00 PM EDT Office Visit [facility] OPTOM[facility]RY [address] [place], [place] [phone] Atiya Samuel, OD [address] [place] [address] documented as of this encounter Visit Diagnoses Not on filedocumented in this encounter Additional Health Concerns Assessment Noted Time PHQ-9 Depression Total Score: 0 12/13/19 23 10:21 AM EDT documented as of this encounter Care Teams Vice President Payer Relationship Specialty Start Date End Date Uma Chung MD [address] [place] [address] PCP - General Family Medicine 02/21/18 Altranais 09/15/24 documented as of this encounter
--- OUTSIDE RECORDS SUMMARY | 2024-10-08 11:30 | XMS_ITS | Encounter Summary ---
Author Organization [employer] Address [address] [facility] [address] [place] [address] Care Team Providers Care Microfilm Machine Operator Name Role Phone Uma Chung MD Primary Care Provide r Encounter Details Date Type Department Care Team (Late st Contact Info) Description 10/08/2024 Orders Only GENERIC EXTERNAL DATA DEPARTMENT Provider, [...] Description 11/12/2024 1:00 PM EDT Office Visit [facility] [address] [place] [address] JimmieAtiya, OD [address] [place] [address] documented as of this encounter Procedures Procedure Name Priority Date/Time Associated Diagnosis Comments CBC WITH AUTO DIFFERENTIAL Routine 10/08/2024 10:54 AM EDT C-REACTIVE PROTEIN Routine 10/08/2024 10 :54 AM EDT URIC ACID Routine 10/08/2024 10:54 AM EDT MAGNESIUM Routine 10/08/2024 10:54 AM EDT COMPREHENSIVE METABOLIC PANEL Routine 10/08/2024 10:54 AM EDT documented in this encounter Results * (ABNORMAL) Magnesium (10/08/2024 10:54 AM EDT) Magnesium 1.1(LL) 1.6 - 2.6 mg/dL [facility] Comment:Critical value for M AG: Results called to and read back by:LYNETTE Person calling: AASHISH Date: 10/08/24 Time: 1125 10/08/2024 10:5 4 AM EDT 10/08/2024 10:56 AM EDT us Generic External Data Provider LAB BLOOD ORDERAB LES Final Result Performing Organization Address [facility] Co de Phone Number [facility] [address] [place] [phone] * (ABNORMAL) C-reactive Protein (10/08/2024 10:54 AM EDT) C Reactive Protein 6.28(H) < or = 0.50 mg/dL [facility] 10/08/2024 10:5 4 AM EDT 10/08/2024 10:56 AM EDT Generic External Data Provider LAB BLOOD ORDERAB LES Final Result Performing Organization Address [facility] Co de Phone Number [facility] [address] [place] [phone] * Uric acid (10/08/2024 10:54 AM EDT) Pathologist [facility] Uric Acid 6.7 3.4 - 7.0 mg/dL [facility] 10/08/2024 10:5 4 AM EDT 10/08/2024 10:56 AM EDT Generic External Data Provider LAB BLOOD ORDERAB LES Final Result Performing Organization Address [facility] Co de Phone Number [facility] [address] [place] [phone] * (ABNORMAL) Comprehensive Metabolic Panel (10/08/2024 10:54 AM EDT) Sodium 135 135 - 145 mmol/L [facility] Potassium 5.1 3.3 - 5.1 mmol/L [facility] Chloride 110(H) 96 - 108 mmol/L [facility] Carbon Dioxide 19(L) 22 - 29 mmol/L [facility] Anion Gap 11(L) 12 - 20 [facility] Urea Nitrogen (BUN) 33(H) 9 - 16 mg/dL [facility] Creatinine, Serum 2.34(H) 0.5 - 1.4 mg/dL [facility] Creatinine Clr Calc Pharmacy 32.6 [facility] Comment:eGFR (calculated fro m the MDRD study equation) and eCrCl(calculated from the Cockcroft-Gault equation) are based ondifferent parameters and may not yield comparable results.If eCrCl result is absurd, please check patient'sheight/weight. Estimated Glomerular Filt Rate 27 [facility] Comment:Chronic Kidney Disea se: Estimated GFR < 60 mL/min/[id number] Kidney Disease: Estimated GFR < 15 mL/min/1.73m2 Glucose 220(H) 60 - 115 mg/dL [facility] Calcium 8.0(L) 8.4 - 10.2 mg/dL [facility] Bilirubin, Total 0.5 0.0 - 1.0 mg/dL [facility] Aspartate Amino Transferase 21 5 - 37 U/L [facility] Alanine Aminotransferase <6 0 - 40 U/L [facility] Total Protein 6.7 6.5 - 8.0 g/dL [facility] Albumin Level 2.7(L) 3.5 - 5.0 g/dL [facility] Alkaline Phosphatase 99 39 - 117 U/L [facility] 10/08/2024 10:5 4 AM EDT 10/08/2024 10:56 AM EDT us Generic External Data Provider LAB BLOOD ORDERAB LES Final Result [facility] [address] [place] [phone] * (ABNORMAL) CBC auto differential (10/08/2024 10:54 AM EDT) White Blood Count 9.7 4.8 - 10.8 X10*3/uL [facility] Red Blood Count 2.53(L) 4.60 - 5.80 X10*6/uL [facility] Hemoglobin 7.5(L) 14.0 - 18.0 g/dl [facility] Hematocrit 22.9(L) 42.0 - 52.0 % [facility] Mean Corpuscular Volume 90.5 80.0 - 98.0 fL [facility] Mean Corpuscular Hemoglobin 29.6 27.0 - 33.0 pg [facility] Mean Corpuscular HGB Conc 32.8 31.0 - 36.0 g/dl [facility] Red Cell Distribution Width 13.3 11.0 - 16.0 % [facility] Platelet Count 338 160 - 400 X10*3/uL [facility] Mean Platelet Volume 9.6 9.4 - 12.4 fL [facility] Neutrophils Percent Auto 69.4 45 - 73 % [facility] Imm Gran Pct Auto 0.6(H) 0.0 - 0.4 % [facility] Lymphocytes Percent Auto 17.3(L) 20 - 40 % [facility] Monocytes Percent Auto 10.0 2 - 11 % [facility] Eosinophils Percent Auto 2.0 0 - 4 % [facility] Basophils Percent Auto 0.7 0 - 2 % [facility] NRBC Pct Auto 0.0 0.0 - 0.2 /100WBC [facility] Neutrophils Absolute Auto 6.7 2.0 - 8.3 x10*3/uL [facility] Imm Gran Abs Auto 0.06(H) 0.00 - 0.03 X10*3/uL [facility] Lymphocytes Absolute Auto 1.7 1.2 - 4.9 X10*3/uL [facility] Monocytes Absolute Auto 1.0 0.1 - 1.2 X10*3/uL [facility] Eosinophils Absolute Auto 0.2 0.0 - 0.4 X10*3/uL [facility] Basophils Absolute Auto 0.1 0.0 - 0.2 X10*3/uL [facility] NRBC Abs Auto 0.000 0.0 - 0.012 X10*3/uL [facility] 10/08/2024 10:5 4 AM EDT 10/08/2024 10:56 AM EDT us Generic External Data Provider LAB BLOOD ORDERAB LES Final Result [facility] [address] [place] [phone] documented in this encounter Visit Diagnoses Not on filedocumented in this encounter Additional Health Concerns Assessment Noted Time PHQ-9 Depression Total Score: 4 05/06/20 24 9:16 AM EST documented as of this encounter Care Teams Microfilm Machine Operator Relationship Specialty Start Date End Date Uma Chung MD [address] [place] [address] PCP - General Family Medicine 02/21/18 [facility] 09/15/24 documented as of this encounter
--- OUTSIDE RECORDS SUMMARY | 2024-10-08 11:30 | XMS_ITS | Clinical Summary ---
Author Organization [facility] Address [address] [place] [address] Care Team Providers Care Admissions Dean Name Role Phone Uma Chung MD Primary Care Provide r Allergies No known active allergies Medications melatonin 10 MG Tab tablet Take 10 mg by mouth nightly. Active acetaminophen (TYLENOL) 325 MG tabletIndication s:S/P CABG x 4 Take 3 tablets (975 mg total) by mouth every 6 (six) hours around the clock. 5 Active aspirin 81 MG chewable tabletIndication s:S/P CABG x 4 Chew 1 tablet (81 mg total) daily. 5 Active linagliptin (TRADJENTA) 5 MG TabIndications:S /P CABG x 4 Take 1 tablet (5 mg total) by mouth daily. 5 08/30/19 26 Active atorvastatin (LIPITOR) 80 MG tabletIndication s:S/P CABG x 4 Take 1 tablet (80 mg total) by mouth nightly. 5 08/29/19 26 Active lidocaine (LIDODERM) 5 % patchIndications :S/P CABG x [address] 1 patch on the skin daily. Apply patch and leave on for 12 hours then remove. Patch may remain on skin for 12 hours per day. 5 Active senna (SENOKOT) 8.6 MG Tab tabletIndication s:S/P CABG x 4 Take 2 tablets by mouth nightly. 5 Active bisacodyl (DULCOLAX) 10 MG suppositoryIndic ations:S/P CABG x 4 Insert 1 suppository (10 mg total) into the rectum daily as needed for constipation. 5 Active polyethylene glycol (miraLAx) 17 g packetIndication s:S/P CABG x 4 Take 1 packet (17 g total) by mouth daily. 5 Active tamsulosin (FLOMAX) 0.4 MG capsuleIndicatio ns:S/P CABG x 4 Take 2 capsules (0.8 mg total) by mouth every evening after dinner. 5 Active clopidogrel (PLAVIX) 75 MG tabletIndication s:S/P CABG x 4 Take 1 tablet (75 mg total) by mouth daily. 5 Active multivitamin with minerals Tab tabletIndication s:S/P CABG x 4 Take 1 tablet by mouth daily. 5 Active PANTOprazole (PROTONIX) 40 MG EC tabletIndication s:S/P CABG x 4 Take 1 tablet (40 mg total) by mouth daily. 5 Active thiamine mononitrate (VITAMIN B-1) 100 MG tabletIndication s:S/P CABG x 4 Take 1 tablet (100 mg total) by mouth daily. 5 Active Active Problems Problem Noted Date Diagnosed Date Severe malnutrition Mild Mus codie Depletion (pectoralis major), Moderate Muscle Depletion (temporalis), Mild Fat Depletion (buccal fat pad), Moderate Fat Depletion (orbital, tricep/bicep fat pad). 08/14/2024 GERD (gastroesophageal reflux disease) NSTEMI (non-ST elevated myocardial infarction) 0 08/05/2024 Hypertension 08/05/2024 Type 2 diabetes mellitus 08/05/2024 Encounters Date Type Department Care Team Description 08/13/2024 8:39 AM EDT Anesthesia Event [facility] [address] [place] [id number] Awilda Slater MD Gordon, Donald E, PA-C 08/13/2024 8:30 AM EDT - 08/13/2024 2:15 PM EDT Surgery [facility] [address] [place] [id number] Celena Chang MD PR CABG x 4, BARBER, RTESVH, ARTERIAL GRAFT WITH INTRA-OP HERNANDEZ 08/13/2024 Documentation [facility] Cardiothoracic Surgery [employer] [address] [facility] [address] [place] [id number] Dhaar Chinchilla RN MSN 08/10/2024 10:13 AM EDT - 08/10/2024 11:12 AM EDT Surgery [facility] V[facility] [place] [facility] - Cardiac Catheterization Laboratory [address] [place] [phone] Kervin Craft MD CORONARY ANGIO W/LV 08/05/2024 9:19 PM EST - 09/02/2024 2:59 PM EDT Hospital Encounter [facility] [address] [place] [address] Pool Haas DO Singh, Gagan, MD Mohamed, MD Raina Osman Patricia, MD Al Rameni, Dina, MD S/P CABG x 4 (Primary Dx) Discharge Disposition: Halfway Facility 08/05/2024 Travel from Last 3 Months Social History Tobacco Use Types Packs/Day Years Used Date Smoking Tobacco: Never Assessed [facility] Utilities Answer Date Recorded In the past 12 months has th e electric, gas, oil, or water company threatened to shut off services in your home? No 08/06/2024 AUDIT-C Answer Date Recorded Q1: How often do you have a drink containing alcohol? Never 08/18/2024 Q2: How many drinks containi ng alcohol do you have on a typical day when you are drinking? Patient does not drink Q3: How often do you have si x or more drinks on one occasion? Never 08/18/2024 Hunger Vital Sign Answer Date Recorded Within the past 12 months, y ou worried that your food would run out before you got the money to buy more. Never true 08/07/19 25 Within the past 12 months, t he food you bought just didn't last and you didn't have money to get more. Never true 08/06/2024 PRAPARE - Transportation Answer Date Re corded In the past 12 months, has l ack of transportation kept you from medical appointments or from getting medications? No 11/2024 In the past 12 months, has l ack of transportation kept you from meetings, work, or from getting things needed for daily living? No 08/06/2024 Housing Stability Vital Sign Answer Sergio e Recorded In the last 12 months, was t here a time when you were not able to pay the mortgage or rent on time? No 08/06/2024 In the past 12 months, how m any times have you moved where you were living? 0 08/06/2024 At any time in the past 12 m [facility], were you homeless or living in a fci (including now)? No 08/06/2024 Sex and Gender Information Value Date Recorded Sex Assigned at Male 08/05/2024 9:10 PM EST Legal Sex Male 6:59 PM EST Gender Identity Male 08/05/2024 9:10 PM EST Sexual Orientation Heterosexual (straight) 08/05 9:10 PM EST Last Filed Vital Signs Vital Sign Reading Time Taken Comments Blood Pressure 118/64 09/02/2024 11:45 AM EDT Pulse 94 09/02/2024 11:45 AM EDT Temperature 36.1 ??C (97 ??F) 09/02/2024 11:45 AM EDT Respiratory Rate 19 09/02/2024 11:45 AM EDT Oxygen Saturation 99% 09/02/2024 11:45 AM EDT Inhaled Oxygen Concentration - - Weight 83.5 kg (184 lb 1.4 oz) 09/02/2024 6:08 A M EDT Height 182.9 cm (6') 08/05/2024 9:41 PM EST Body Mass Index 24.97 08/05/2024 9:41 PM EST Plan of Treatment Health Maintenance Due Date Last Done Comments Hepatitis C Virus Screening 1948 Foot Exam 1958 Ophthalmology Exam 1958 Chronic Controlled Substance Toxicology Screening 1966 Chronic Controlled Substance User PDMP Review 1966 Controlled Substance Agreement Initial and Annual Review 1966 Microalbumin/Creatinine Ratio Urine 1966 DTaP/Tdap/Td Vaccines (1 - Tdap) 1967 Pneumococcal Vaccines 50+ (1 of 2 - PCV) 1967 Zoster (Shingles) Vaccine (1 of 2) 1998 RSV Vaccine 60 years and older and Patients (1 - 1-dose 75+ series) 2023 COVID-19 Vaccine (2 - season) 2024 05/06/2024 Influenza Vaccine 01/01/2025 05/06/2024, , 02/24/2018 Hemoglobin A1C 02/06/2025 08/06/2024, 08/05/2024 Lipid Panel 08/06/2025 08/06/2024 Creatinine with GFR 09/02/2025 09/02/2024, 09/01/2024, 08/31/2024, Additional history exists Hepatitis B Vaccines Aged Out No long er eligible based on patient's age to complete this topic Medical Devices Implanted Type Area Full Stack Software Developer Device Identifier Shelf Expiration Date Model / Serial / Lot [id number] Atriclip Flex Device, 35mm Clip - [id number] Implanted:Qty: 1 on 08/13/2024 by Celena Chang MD at [facility] Clip N/A: [employer] 06/03/2027 [id number] / [id number] Procedures Procedure Name Priority Date/Time Associated Diagnosis Comments POCT GLUCOSE, FINGERSTICK (CHARGE) Routine 09/02/2024 12:13 PM EDT POCT GLUCOSE, FINGERSTICK (CHARGE) Routine 09/02/2024 8:27 AM EDT PHOSPHORUS Routine 09/02/2024 5:13 AM EDT MAGNESIUM Routine 09/02/2024 5:13 AM EDT BASIC METABOLIC PANEL Routine 09/02/2024 5:13 AM EDT ECG 12-LEAD Routine 09/02/2024 4:36 AM EDT POCT GLUCOSE, FINGERSTICK (CHARGE) Routine 09/01/2024 7:29 PM EDT POCT GLUCOSE, FINGERSTICK (CHARGE) Routine 09/01/2024 5:37 PM EDT POCT GLUCOSE, FINGERSTICK (CHARGE) Routine 09/01/2024 12:29 PM EDT POCT GLUCOSE, FINGERSTICK (CHARGE) Routine 09/01/2024 8:59 AM EDT PHOSPHORUS Routine 09/01/2024 5:30 AM EDT MAGNESIUM Routine 09/01/2024 5:30 AM EDT BASIC METABOLIC PANEL Routine 09/01/2024 5:30 AM EDT ECG 12-LEAD Routine 09/01/2024 4:16 AM EDT POCT GLUCOSE, FINGERSTICK (CHARGE) Routine 08/31/2024 9:02 PM EDT POCT GLUCOSE, FINGERSTICK (CHARGE) Routine 08/31/2024 4:12 PM EDT POCT GLUCOSE, FINGERSTICK (CHARGE) Routine 08/31/2024 12:28 PM EDT POCT GLUCOSE, FINGERSTICK (CHARGE) Routine 08/31/2024 8:29 AM EDT ECG 12-LEAD Routine 08/31/2024 5:42 AM EDT PHOSPHORUS Routine 08/31/2024 5:17 AM EDT MAGNESIUM Routine 08/31/2024 5:17 AM EDT BASIC METABOLIC PANEL Routine 08/31/2024 5:17 AM EDT POCT GLUCOSE, FINGERSTICK (CHARGE) Routine 08/30/2024 8:37 PM EDT POCT GLUCOSE, FINGERSTICK (CHARGE) Routine 08/30/2024 4:42 PM EDT POCT GLUCOSE, FINGERSTICK (CHARGE) Routine 08/30/2024 12:14 PM EDT POCT GLUCOSE, FINGERSTICK (CHARGE) Routine 08/30/2024 8:19 AM EDT MAGNESIUM Routine 08/30/2024 5:59 AM EDT BASIC METABOLIC PANEL Routine 08/30/2024 5:59 AM EDT ECG 12-LEAD Routine 08/30/2024 5:51 AM EDT POCT GLUCOSE, FINGERSTICK (CHARGE) Routine 08/29/2024 9:31 PM EDT POCT GLUCOSE, FINGERSTICK (CHARGE) Routine 08/29/2024 8:34 PM EDT POCT GLUCOSE, FINGERSTICK (CHARGE) Routine 08/29/2024 4:27 PM EDT POCT GLUCOSE, FINGERSTICK (CHARGE) Routine 08/29/2024 12:11 PM EDT ECG 12-LEAD Routine 08/29/2024 10:02 AM EDT POCT GLUCOSE, FINGERSTICK (CHARGE) Routine 08/29/2024 8:25 AM EDT PHOSPHORUS Routine 08/29/2024 3:50 AM EDT MAGNESIUM Routine 08/29/2024 3:50 AM EDT BASIC METABOLIC PANEL Routine 08/29/2024 3:50 AM EDT POCT GLUCOSE, FINGERSTICK (CHARGE) Routine 08/28/2024 8:32 PM EDT POCT GLUCOSE, FINGERSTICK (CHARGE) Routine 08/28/2024 5:03 PM EDT POCT GLUCOSE, FINGERSTICK (CHARGE) Routine 08/28/2024 12:28 PM EDT POCT GLUCOSE, FINGERSTICK (CHARGE) Routine 08/28/2024 8:19 AM EDT PHOSPHORUS Routine 08/28/2024 5:29 AM EDT MAGNESIUM Routine 08/28/2024 5:29 AM EDT BASIC METABOLIC PANEL Routine 08/28/2024 5:29 AM EDT ECG 12-LEAD Routine 08/28/2024 5:11 AM EDT POCT GLUCOSE, FINGERSTICK (CHARGE) Routine 08/27/2024 7:50 PM EDT POCT GLUCOSE, FINGERSTICK (CHARGE) Routine 08/27/2024 4:47 PM EDT PHOSPHORUS Routine 08/27/2024 4:33 PM EDT MAGNESIUM Routine 08/27/2024 4:33 PM EDT BASIC METABOLIC PANEL Routine 08/27/2024 4:33 PM EDT POCT GLUCOSE, FINGERSTICK (CHARGE) Routine 08/27/2024 11:51 AM EDT POCT GLUCOSE, FINGERSTICK (CHARGE) Routine 08/27/2024 8:34 AM EDT ECG 12-LEAD Routine 08/27/2024 7:49 AM EDT POCT GLUCOSE, FINGERSTICK (CHARGE) Routine 08/26/2024 8:38 PM EDT POCT GLUCOSE, FINGERSTICK (CHARGE) Routine 08/26/2024 5:05 PM EDT POCT GLUCOSE, FINGERSTICK (CHARGE) Routine 08/26/2024 12:10 PM EDT POCT GLUCOSE, FINGERSTICK (CHARGE) Routine 08/26/2024 8:36 AM EDT PHOSPHORUS Routine 08/26/2024 6:42 AM EDT MAGNESIUM Routine 08/26/2024 6:42 AM EDT BASIC METABOLIC PANEL Routine 08/26/2024 6:42 AM EDT ECG 12-LEAD Routine 08/26/2024 4:18 AM EDT POCT GLUCOSE, FINGERSTICK (CHARGE) Routine 08/25/2024 8:46 PM EDT POCT GLUCOSE, FINGERSTICK (CHARGE) Routine 08/25/2024 5:29 PM EDT POCT GLUCOSE, FINGERSTICK (CHARGE) Routine 08/25/2024 11:42 AM EDT POCT GLUCOSE, FINGERSTICK (CHARGE) Routine 08/25/2024 8:38 AM EDT PHOSPHORUS Routine 08/25/2024 8:14 AM EDT MAGNESIUM Routine 08/25/2024 8:14 AM EDT BASIC METABOLIC PANEL Routine 08/25/2024 8:14 AM EDT ECG 12-LEAD Routine 08/25/2024 3:32 AM EDT POCT GLUCOSE, FINGERSTICK (CHARGE) Routine 08/24/2024 10:21 PM EDT POCT GLUCOSE, FINGERSTICK (CHARGE) Routine 08/24/2024 5:24 PM EDT POCT GLUCOSE, FINGERSTICK (CHARGE) Routine 08/24/2024 12:16 PM EDT POCT GLUCOSE, FINGERSTICK (CHARGE) Routine 08/24/2024 8:05 AM EDT PHOSPHORUS Routine 08/24/2024 4:34 AM EDT MAGNESIUM Routine 08/24/2024 4:34 AM EDT BASIC METABOLIC PANEL Routine 08/24/2024 4:34 AM EDT POCT GLUCOSE, FINGERSTICK (CHARGE) Routine 08/23/2024 8:49 PM EDT POCT GLUCOSE, FINGERSTICK (CHARGE) Routine 08/23/2024 4:39 PM EDT POCT GLUCOSE, FINGERSTICK (CHARGE) Routine 08/23/2024 12:06 PM EDT POCT GLUCOSE, FINGERSTICK (CHARGE) Routine 08/23/2024 8:02 AM EDT PHOSPHORUS Routine 08/23/2024 6:02 AM EDT MAGNESIUM Routine 08/23/2024 6:02 AM EDT BASIC METABOLIC PANEL Routine 08/23/2024 6:02 AM EDT ECG 12-LEAD Routine 08/23/2024 4:30 AM EDT POCT GLUCOSE, FINGERSTICK (CHARGE) Routine 08/22/2024 8:51 PM EDT POCT GLUCOSE, FINGERSTICK (CHARGE) Routine 08/22/2024 4:44 PM EDT POCT GLUCOSE, FINGERSTICK (CHARGE) Routine 08/22/2024 12:13 PM EDT POCT GLUCOSE, FINGERSTICK (CHARGE) Routine 08/22/2024 8:37 AM EDT PHOSPHORUS Routine 08/22/2024 6:32 AM EDT MAGNESIUM Routine 08/22/2024 6:32 AM EDT BASIC METABOLIC PANEL Routine 08/22/2024 6:32 AM EDT ECG 12-LEAD Routine 08/22/2024 4:55 AM EDT POCT GLUCOSE, FINGERSTICK (CHARGE) Routine 08/21/2024 8:34 PM EDT POCT GLUCOSE, FINGERSTICK (CHARGE) Routine 08/21/2024 6:42 PM EDT POCT GLUCOSE, FINGERSTICK (CHARGE) Routine 08/21/2024 4:53 PM EDT POCT GLUCOSE, FINGERSTICK (CHARGE) Routine 08/21/2024 12:14 PM EDT POCT GLUCOSE, FINGERSTICK (CHARGE) Routine 08/21/2024 8:48 AM EDT PHOSPHORUS Routine 08/21/2024 5:11 AM EDT MAGNESIUM Routine 08/21/2024 5:11 AM EDT BASIC METABOLIC PANEL Routine 08/21/2024 5:11 AM EDT COMPLETE BLOOD COUNT, WITHOUT DIFFERENTIAL Routine 08/21/2024 5:11 AM EDT POCT GLUCOSE, FINGERSTICK (CHARGE) Routine 08/20/2024 8:44 PM EDT POCT GLUCOSE, FINGERSTICK (CHARGE) Routine 08/20/2024 6:28 PM EDT POCT GLUCOSE, FINGERSTICK (CHARGE) Routine 08/20/2024 5:01 PM EDT POCT GLUCOSE, FINGERSTICK (CHARGE) Routine 08/20/2024 1:26 PM EDT POCT GLUCOSE, FINGERSTICK (CHARGE) Routine 08/20/2024 12:09 PM EDT POCT GLUCOSE, FINGERSTICK (CHARGE) Routine 08/20/2024 9:41 AM EDT POCT GLUCOSE, FINGERSTICK (CHARGE) Routine 08/20/2024 7:36 AM EDT ECG 12-LEAD Routine 08/20/2024 6:46 AM EDT PHOSPHORUS Routine 08/20/2024 6:35 AM EDT MAGNESIUM Routine 08/20/2024 6:35 AM EDT BASIC METABOLIC PANEL Routine 08/20/2024 6:35 AM EDT POCT GLUCOSE, FINGERSTICK (CHARGE) Routine 08/20/2024 2:05 AM EDT POCT GLUCOSE, FINGERSTICK (CHARGE) Routine 08/19/2024 9:06 PM EDT POCT GLUCOSE, FINGERSTICK (CHARGE) Routine 08/19/2024 5:09 PM EDT XR CHEST 2 VIEWS Routine 08/19/2024 5:01 PM EDT POCT GLUCOSE, FINGERSTICK (CHARGE) Routine 08/19/2024 11:35 AM EDT ECG 12-LEAD Routine 08/19/2024 9:50 AM EDT POCT GLUCOSE, FINGERSTICK (CHARGE) Routine 08/19/2024 8:09 AM EDT PHOSPHORUS Routine 08/19/2024 4:47 AM EDT MAGNESIUM Routine 08/19/2024 4:47 AM EDT BASIC METABOLIC PANEL Routine 08/19/2024 4:47 AM EDT POCT GLUCOSE, FINGERSTICK (CHARGE) Routine 08/18/2024 10:52 PM EDT POCT GLUCOSE, FINGERSTICK (CHARGE) Routine 08/18/2024 10:10 PM EDT POCT GLUCOSE, FINGERSTICK (CHARGE) Routine 08/18/2024 4:55 PM EDT BASIC METABOLIC PANEL Routine 08/18/2024 1:22 PM EDT POCT GLUCOSE, FINGERSTICK (CHARGE) Routine 08/18/2024 11:23 AM EDT ECG 12-LEAD Routine 08/18/2024 10:35 AM EDT POCT GLUCOSE, FINGERSTICK (CHARGE) Routine 08/18/2024 7:27 AM EDT HEMOGLOBIN AND HEMATOCRIT Routine 08/18/2024 12:03 AM EDT BASIC METABOLIC PANEL Routine 08/18/2024 12:03 AM EDT COOXIMETRY, VENOUS Routine 08/18/2024 12:03 AM EDT POCT GLUCOSE, FINGERSTICK (CHARGE) Routine 08/17/2024 8:03 PM EDT COOXIMETRY, VENOUS Routine 08/17/2024 6: 13 PM EDT BASIC METABOLIC PANEL Routine 08/17/2024 6:13 PM EDT POCT GLUCOSE, FINGERSTICK (CHARGE) Routine 08/17/2024 4:30 PM EDT COOXIMETRY, VENOUS Routine 08/17/2024 12:58 PM EDT POCT GLUCOSE, FINGERSTICK (CHARGE) Routine 08/17/2024 12:06 PM EDT POCT GLUCOSE, FINGERSTICK (CHARGE) Routine 08/17/2024 7:57 AM EDT XR CHEST 1 VIEW-PORTABLE Routine 025 7:02 AM EDT BASIC METABOLIC PANEL Routine 08/17/2024 12:18 AM EDT COOXIMETRY, VENOUS Routine 08/17/2024 12:18 AM EDT COMPLETE BLOOD COUNT, WITHOUT DIFFERENTIAL Routine 08/17/2024 12:18 AM EDT HEMOGLOBIN AND HEMATOCRIT Routine 08/16/2024 9:28 PM EDT POCT GLUCOSE, FINGERSTICK (CHARGE) Routine 08/16/2024 8:49 PM EDT BASIC METABOLIC PANEL Routine 08/16/2024 6:30 PM EDT BASIC METABOLIC PANEL Routine 08/16/2024 4:54 PM EDT POCT GLUCOSE, FINGERSTICK (CHARGE) Routine 08/16/2024 4:32 PM EDT POCT GLUCOSE, FINGERSTICK (CHARGE) Routine 08/16/2024 11:59 AM EDT BASIC METABOLIC PANEL Routine 08/16/2024 10:55 AM EDT ECG 12-LEAD Routine 08/16/2024 9:46 AM EDT HEMOGLOBIN AND HEMATOCRIT Routine 08/16/2024 8:33 AM EDT POCT GLUCOSE, FINGERSTICK (CHARGE) Routine 08/16/2024 7:47 AM EDT BASIC METABOLIC PANEL Routine 08/16/2024 6:20 AM EDT XR CHEST 1 VIEW-PORTABLE Routine 025 5:22 AM EDT TRANSFUSE RED BLOOD CELLS Routine 08/16/2024 4:05 AM EDT TYPE AND SCREEN Routine 08/16/2024 1:59 AM EDT LACTIC ACID, PLASMA Routine 08/16/2024 1 :59 AM EDT PREPARE RBC'S Routine 08/16/2024 1:56 AM EDT COMPLETE BLOOD COUNT, WITHOUT DIFFERENTIAL Routine 08/16/2024 12:00 AM EDT HEPATIC FUNCTION PANEL Routine 12:00 AM EDT PHOSPHORUS Routine 08/16/2024 12:00 AM EDT MAGNESIUM Routine 08/16/2024 12:00 AM EDT COOXIMETRY, VENOUS Routine 08/16/2024 12:00 AM EDT BASIC METABOLIC PANEL Routine 08/16/2024 12:00 AM EDT POCT GLUCOSE, FINGERSTICK (CHARGE) Routine 08/15/2024 9:06 PM EDT ECG 12-LEAD Routine 08/15/2024 8:09 PM EDT BASIC METABOLIC PANEL Routine 08/15/2024 5:30 PM EDT POCT GLUCOSE, FINGERSTICK (CHARGE) Routine 08/15/2024 5:05 PM EDT HEMOGLOBIN AND HEMATOCRIT Routine 08/15/2024 4:14 PM EDT POCT GLUCOSE, FINGERSTICK (CHARGE) Routine 08/15/2024 11:59 AM EDT BASIC METABOLIC PANEL Routine 08/15/2024 11:24 AM EDT HEMOGLOBIN AND HEMATOCRIT Routine 08/15/2024 8:46 AM EDT POCT GLUCOSE, FINGERSTICK (CHARGE) Routine 08/15/2024 8:01 AM EDT BASIC METABOLIC PANEL Routine 08/15/2024 6:00 AM EDT LACTIC ACID, PLASMA Routine 08/15/2024 6 :00 AM EDT XR CHEST 1 VIEW-PORTABLE Routine 025 5:11 AM EDT LACTIC ACID, PLASMA Routine 08/15/2024 12:01 AM EDT COOXIMETRY, VENOUS Routine 08/15/2024 12:01 AM EDT PHOSPHORUS Routine 08/15/2024 12:01 AM EDT MAGNESIUM Routine 08/15/2024 12:01 AM EDT COMPLETE BLOOD COUNT, WITHOUT DIFFERENTIAL Routine 08/15/2024 12:01 AM EDT BASIC METABOLIC PANEL Routine 08/15/2024 12:01 AM EDT POCT GLUCOSE, FINGERSTICK (CHARGE) Routine 08/14/2024 8:40 PM EDT COOXIMETRY, VENOUS Routine 08/14/2024 8: 38 PM EDT LACTIC ACID, PLASMA Routine 08/14/2024 7 :25 PM EDT POCT GLUCOSE, FINGERSTICK (CHARGE) Routine 08/14/2024 4:38 PM EDT BASIC METABOLIC PANEL Routine 08/14/2024 12:47 PM EDT POCT GLUCOSE, FINGERSTICK (CHARGE) Routine 08/14/2024 11:45 AM EDT COOXIMETRY, VENOUS Routine 08/14/2024 10:44 AM EDT POCT GLUCOSE, FINGERSTICK (CHARGE) Routine 08/14/2024 7:48 AM EDT ECG 12-LEAD Routine 08/14/2024 7:46 AM EDT XR CHEST 1 VIEW-PORTABLE Routine 025 6:20 AM EDT POCT GLUCOSE, FINGERSTICK (CHARGE) Routine 08/14/2024 5:30 AM EDT POCT GLUCOSE, FINGERSTICK (CHARGE) Routine 08/14/2024 3:08 AM EDT POCT GLUCOSE, FINGERSTICK (CHARGE) Routine 08/14/2024 2:20 AM EDT COOXIMETRY, VENOUS Routine 08/14/2024 2: 17 AM EDT MAGNESIUM Routine 08/14/2024 2:17 AM EDT COMPLETE BLOOD COUNT, WITHOUT DIFFERENTIAL Routine 08/14/2024 2:17 AM EDT BASIC METABOLIC PANEL Routine 08/14/2024 2:17 AM EDT POCT GLUCOSE, FINGERSTICK (CHARGE) Routine 08/14/2024 1:06 AM EDT POCT GLUCOSE, FINGERSTICK (CHARGE) Routine 08/13/2024 11:56 PM EDT BLOOD GAS, ARTERIAL Routine 08/13/2024 11:08 PM EDT POCT GLUCOSE, FINGERSTICK (CHARGE) Routine 08/13/2024 11:06 PM EDT EXTUBATION Routine 08/13/2024 10:38 PM EDT ECG 12-LEAD Routine 08/13/2024 10:28 PM EDT BLOOD GAS, ARTERIAL Routine 08/13/2024 10:20 PM EDT COOXIMETRY, VENOUS Routine 08/13/2024 10:20 PM EDT POCT GLUCOSE, FINGERSTICK (CHARGE) Routine 08/13/2024 10:12 PM EDT XR CHEST 1 VIEW-PORTABLE STAT 025 9:13 PM EDT POTASSIUM Routine 08/13/2024 9:10 PM EDT HEMOGLOBIN AND HEMATOCRIT Routine 08/13/2024 9:10 PM EDT POCT GLUCOSE, FINGERSTICK (CHARGE) Routine 08/13/2024 8:50 PM EDT POCT GLUCOSE, FINGERSTICK (CHARGE) Routine 08/13/2024 7:45 PM EDT POCT GLUCOSE, FINGERSTICK (CHARGE) Routine 08/13/2024 7:43 PM EDT BLOOD GAS, ARTERIAL Routine 08/13/2024 6 :51 PM EDT POCT GLUCOSE, FINGERSTICK (CHARGE) Routine 08/13/2024 6:02 PM EDT POCT GLUCOSE, FINGERSTICK (CHARGE) Routine 08/13/2024 4:55 PM EDT XR CHEST 1 VIEW-PORTABLE Routine 025 3:55 PM EDT ECG 12-LEAD Routine 08/13/2024 3:47 PM EDT POCT GLUCOSE, FINGERSTICK (CHARGE) Routine 08/13/2024 3:28 PM EDT BLOOD GAS WITH COOXIMETRY, VENOUS Routine 08/13/2024 3:19 PM EDT BLOOD GAS, ARTERIAL Routine 08/13/2024 3 :19 PM EDT BASIC METABOLIC PANEL Routine 08/13/2024 3:19 PM EDT COMPLETE BLOOD COUNT, WITHOUT DIFFERENTIAL Routine 08/13/2024 3:19 PM EDT ISTAT HEMOGLOBIN (ACTIVE) (NO CHARGE) Routine 08/13/2024 2:43 PM EDT ISTAT HEMATOCRIT (ACTIVE) (NO CHARGE) Routine 08/13/2024 2:43 PM EDT ISTAT GLUCOSE (NO CHARGE) Routine 08/13/2024 2:43 PM EDT ISTAT VENOUS BLOOD GAS (VBG) (NO CHARGE) Routine 08/13/2024 2:43 PM EDT ISTAT CALCIUM, IONIZED (ICA) (NO CHARGE) Routine 08/13/2024 2:43 PM EDT ISTAT POTASSIUM (K) (NO CHARGE) Routine 08/13/2024 2:43 PM EDT ISTAT SODIUM (NA) (NO CHARGE) Routine 08/13/2024 2:43 PM EDT ISTAT ACTIVATED CLOTTING TIME, KAOLIN (CHARGE) Routine 08/13/2024 2:04 PM EDT ISTAT HEMOGLOBIN (ACTIVE) (NO CHARGE) Routine 08/13/2024 2:03 PM EDT ISTAT HEMATOCRIT (ACTIVE) (NO CHARGE) Routine 08/13/2024 2:03 PM EDT ISTAT GLUCOSE (NO CHARGE) Routine 08/13/2024 2:03 PM EDT ISTAT ARTERIAL BLOOD GAS (ABG) (NO CHARGE) Routine 08/13/2024 2:03 PM EDT ISTAT CALCIUM, IONIZED (ICA) (NO CHARGE) Routine 08/13/2024 2:03 PM EDT ISTAT POTASSIUM (K) (NO CHARGE) Routine 08/13/2024 2:03 PM EDT ISTAT SODIUM (NA) (NO CHARGE) Routine 08/13/2024 2:03 PM EDT ISTAT ACTIVATED CLOTTING TIME, KAOLIN (CHARGE) Routine 08/13/2024 1:31 PM EDT ISTAT HEMOGLOBIN (ACTIVE) (NO CHARGE) Routine 08/13/2024 1:25 PM EDT ISTAT HEMATOCRIT (ACTIVE) (NO CHARGE) Routine 08/13/2024 1:25 PM EDT ISTAT GLUCOSE (NO CHARGE) Routine 08/13/2024 1:25 PM EDT ISTAT ARTERIAL BLOOD GAS (ABG) (NO CHARGE) Routine 08/13/2024 1:25 PM EDT ISTAT CALCIUM, IONIZED (ICA) (NO CHARGE) Routine 08/13/2024 1:25 PM EDT ISTAT POTASSIUM (K) (NO CHARGE) Routine 08/13/2024 1:25 PM EDT ISTAT SODIUM (NA) (NO CHARGE) Routine 08/13/2024 1:25 PM EDT ISTAT ACTIVATED CLOTTING TIME, KAOLIN (CHARGE) Routine 08/13/2024 1:06 PM EDT ISTAT HEMOGLOBIN (ACTIVE) (NO CHARGE) Routine 08/13/2024 1:02 PM EDT ISTAT HEMATOCRIT (ACTIVE) (NO CHARGE) Routine 08/13/2024 1:02 PM EDT ISTAT GLUCOSE (NO CHARGE) Routine 08/13/2024 1:02 PM EDT ISTAT ARTERIAL BLOOD GAS (ABG) (NO CHARGE) Routine 08/13/2024 1:02 PM EDT ISTAT CALCIUM, IONIZED (ICA) (NO CHARGE) Routine 08/13/2024 1:02 PM EDT ISTAT POTASSIUM (K) (NO CHARGE) Routine 08/13/2024 1:02 PM EDT ISTAT SODIUM (NA) (NO CHARGE) Routine 08/13/2024 1:02 PM EDT PLATELET COUNT Routine 08/13/2024 12:59 PM EDT HEMATOCRIT Routine 08/13/2024 12:59 PM EDT LACTIC ACID, PLASMA Routine 08/13/2024 12:59 PM EDT THROMBOELASTOGRAPH (TEG) Routine 025 12:59 PM EDT ISTAT ACTIVATED CLOTTING TIME, KAOLIN (CHARGE) Routine 08/13/2024 12:50 PM EDT ISTAT HEMOGLOBIN (ACTIVE) (NO CHARGE) Routine 08/13/2024 12:43 PM EDT ISTAT HEMATOCRIT (ACTIVE) (NO CHARGE) Routine 08/13/2024 12:43 PM EDT ISTAT GLUCOSE (NO CHARGE) Routine 08/13/2024 12:43 PM EDT ISTAT ARTERIAL BLOOD GAS (ABG) (NO CHARGE) Routine 08/13/2024 12:43 PM EDT ISTAT CALCIUM, IONIZED (ICA) (NO CHARGE) Routine 08/13/2024 12:43 PM EDT ISTAT POTASSIUM (K) (NO CHARGE) Routine 08/13/2024 12:43 PM EDT ISTAT SODIUM (NA) (NO CHARGE) Routine 08/13/2024 12:43 PM EDT ANES LINE - PULMONARY ARTERY, WORK ORDER CLERK/SVO2 Routine 08/13/2024 12:30 PM EDT ANES HERNANDEZ Routine 08/13/2024 12:29 PM EDT ISTAT ACTIVATED CLOTTING TIME, KAOLIN (CHARGE) Routine 08/13/2024 12:28 PM EDT ISTAT HEMOGLOBIN (ACTIVE) (NO CHARGE) Routine 08/13/2024 12:21 PM EDT ISTAT HEMATOCRIT (ACTIVE) (NO CHARGE) Routine 08/13/2024 12:21 PM EDT ISTAT GLUCOSE (NO CHARGE) Routine 08/13/2024 12:21 PM EDT ISTAT ARTERIAL BLOOD GAS (ABG) (NO CHARGE) Routine 08/13/2024 12:21 PM EDT ISTAT CALCIUM, IONIZED (ICA) (NO CHARGE) Routine 08/13/2024 12:21 PM EDT ISTAT POTASSIUM (K) (NO CHARGE) Routine 08/13/2024 12:21 PM EDT ISTAT SODIUM (NA) (NO CHARGE) Routine 08/13/2024 12:21 PM EDT ISTAT ACTIVATED CLOTTING TIME, KAOLIN (CHARGE) Routine 08/13/2024 12:03 PM EDT ISTAT HEMOGLOBIN (ACTIVE) (NO CHARGE) Routine 08/13/2024 11:59 AM EDT ISTAT HEMATOCRIT (ACTIVE) (NO CHARGE) Routine 08/13/2024 11:59 AM EDT ISTAT GLUCOSE (NO CHARGE) Routine 08/13/2024 11:59 AM EDT ISTAT ARTERIAL BLOOD GAS (ABG) (NO CHARGE) Routine 08/13/2024 11:59 AM EDT ISTAT CALCIUM, IONIZED (ICA) (NO CHARGE) Routine 08/13/2024 11:59 AM EDT ISTAT POTASSIUM (K) (NO CHARGE) Routine 08/13/2024 11:59 AM EDT ISTAT SODIUM (NA) (NO CHARGE) Routine 08/13/2024 11:59 AM EDT ISTAT ACTIVATED CLOTTING TIME, KAOLIN (CHARGE) Routine 08/13/2024 11:35 AM EDT ISTAT HEMOGLOBIN (ACTIVE) (NO CHARGE) Routine 08/13/2024 11:30 AM EDT ISTAT HEMATOCRIT (ACTIVE) (NO CHARGE) Routine 08/13/2024 11:30 AM EDT ISTAT GLUCOSE (NO CHARGE) Routine 08/13/2024 11:30 AM EDT ISTAT ARTERIAL BLOOD GAS (ABG) (NO CHARGE) Routine 08/13/2024 11:30 AM EDT ISTAT CALCIUM, IONIZED (ICA) (NO CHARGE) Routine 08/13/2024 11:30 AM EDT ISTAT POTASSIUM (K) (NO CHARGE) Routine 08/13/2024 11:30 AM EDT ISTAT SODIUM (NA) (NO CHARGE) Routine 08/13/2024 11:30 AM EDT ISTAT ACTIVATED CLOTTING TIME, KAOLIN (CHARGE) Routine 08/13/2024 11:08 AM EDT TRANSFUSE RED BLOOD CELLS Routine 08/13/2024 11:07 AM EDT ISTAT HEMOGLOBIN (ACTIVE) (NO CHARGE) Routine 08/13/2024 11:02 AM EDT ISTAT HEMATOCRIT (ACTIVE) (NO CHARGE) Routine 08/13/2024 11:02 AM EDT ISTAT GLUCOSE (NO CHARGE) Routine 08/13/2024 11:02 AM EDT ISTAT ARTERIAL BLOOD GAS (ABG) (NO CHARGE) Routine 08/13/2024 11:02 AM EDT ISTAT CALCIUM, IONIZED (ICA) (NO CHARGE) Routine 08/13/2024 11:02 AM EDT ISTAT POTASSIUM (K) (NO CHARGE) Routine 08/13/2024 11:02 AM EDT ISTAT SODIUM (NA) (NO CHARGE) Routine 08/13/2024 11:02 AM EDT PATHOLOGY REPORT Routine 08/13/2024 11:00 AM EDT ISTAT HEMOGLOBIN (ACTIVE) (NO CHARGE) Routine 08/13/2024 10:03 AM EDT ISTAT HEMATOCRIT (ACTIVE) (NO CHARGE) Routine 08/13/2024 10:03 AM EDT ISTAT GLUCOSE (NO CHARGE) Routine 08/13/2024 10:03 AM EDT ISTAT VENOUS BLOOD GAS (VBG) (NO CHARGE) Routine 08/13/2024 10:03 AM EDT ISTAT CALCIUM, IONIZED (ICA) (NO CHARGE) Routine 08/13/2024 10:03 AM EDT ISTAT POTASSIUM (K) (NO CHARGE) Routine 08/13/2024 10:03 AM EDT ISTAT SODIUM (NA) (NO CHARGE) Routine 08/13/2024 10:03 AM EDT AEROBIC CULTURE (GRAM STAIN INCLUDED) Routine 08/13/2024 10:00 AM EDT ANAEROBIC CULTURE Routine 08/13/2024 10:00 AM EDT TISSUE CULTURE (AEROBIC, ANAEROBIC + GRAM STAIN) Routine 08/13/2024 10:00 AM EDT ANES LINE - ARTERIAL Routine 08/13/2024 9:52 AM EDT ANES LINE - CENTRAL, SINGLE LUMEN, INTRODUCER (CORDIS) Routine 08/13/2024 9:48 AM EDT ANES INTUBATION Routine 08/13/2024 9:47 AM EDT ISTAT ACTIVATED CLOTTING TIME, KAOLIN (CHARGE) Routine 08/13/2024 9:01 AM EDT ISTAT HEMOGLOBIN (ACTIVE) (NO CHARGE) Routine 08/13/2024 9:00 AM EDT ISTAT HEMATOCRIT (ACTIVE) (NO CHARGE) Routine 08/13/2024 9:00 AM EDT ISTAT GLUCOSE (NO CHARGE) Routine 08/13/2024 9:00 AM EDT ISTAT ARTERIAL BLOOD GAS (ABG) (NO CHARGE) Routine 08/13/2024 9:00 AM EDT ISTAT CALCIUM, IONIZED (ICA) (NO CHARGE) Routine 08/13/2024 9:00 AM EDT ISTAT POTASSIUM (K) (NO CHARGE) Routine 08/13/2024 9:00 AM EDT ISTAT SODIUM (NA) (NO CHARGE) Routine 08/13/2024 9:00 AM EDT LACTIC ACID, PLASMA Routine 08/13/2024 8 :58 AM EDT THROMBOELASTOGRAPH (TEG) Routine 025 8:58 AM EDT TRANSESOPHAGEAL ECHO-ANESTHESIA Routine 08/13/2024 8:10 AM EDT OH PROCEDURE MAZE 08/13/2024 8:1 0 AM EDT 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 RI NDSC SURG W/VIDEO-ASSISTED HARVEST VEIN CABG 08/13/2024 8:10 AM EDT 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 RI CORONARY ARTERY BYP W/VEIN & ARTERY GRAFT 1 VEIN 08/13/2024 8:10 AM EDT 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 RI CABG W/ARTERIAL GRAFT TWO ARTERIAL GRAFTS 08/13/2024 8:10 AM EDT 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 POCT GLUCOSE, FINGERSTICK (CHARGE) Routine 08/13/2024 7:49 AM EDT HEPARIN ASSAY (ANTI-XA) Routine 08/14/19 25 7:41 AM EDT MAGNESIUM Routine 08/13/2024 7:41 AM EDT COMPLETE BLOOD COUNT, WITHOUT DIFFERENTIAL Routine 08/13/2024 7:41 AM EDT BASIC METABOLIC PANEL Routine 08/13/2024 7:41 AM EDT POCT GLUCOSE, FINGERSTICK (CHARGE) Routine 08/13/2024 2:09 AM EDT POCT GLUCOSE, FINGERSTICK (CHARGE) Routine 08/12/2024 9:14 PM EDT POCT GLUCOSE, FINGERSTICK (CHARGE) Routine 08/12/2024 4:40 PM EDT POCT GLUCOSE, FINGERSTICK (CHARGE) Routine 08/12/2024 11:32 AM EDT PREPARE RBC'S Routine 08/12/2024 10:11 AM EDT POCT GLUCOSE, FINGERSTICK (CHARGE) Routine 08/12/2024 7:38 AM EDT HEPARIN ASSAY (ANTI-XA) Routine 08/13/19 25 7:24 AM EDT COMPLETE BLOOD COUNT, WITHOUT DIFFERENTIAL Routine 08/12/2024 7:24 AM EDT MAGNESIUM Routine 08/12/2024 7:24 AM EDT BASIC METABOLIC PANEL Routine 08/12/2024 7:24 AM EDT TYPE AND SCREEN Routine 08/12/2024 7:18 AM EDT POCT GLUCOSE, FINGERSTICK (CHARGE) Routine 08/12/2024 2:16 AM EDT POCT GLUCOSE, FINGERSTICK (CHARGE) Routine 08/11/2024 8:57 PM EDT POCT GLUCOSE, FINGERSTICK (CHARGE) Routine 08/11/2024 4:44 PM EDT POCT GLUCOSE, FINGERSTICK (CHARGE) Routine 08/11/2024 11:39 AM EDT POCT GLUCOSE, FINGERSTICK (CHARGE) Routine 08/11/2024 8:00 AM EDT COMPLETE BLOOD COUNT, WITHOUT DIFFERENTIAL Routine 08/11/2024 7:59 AM EDT MAGNESIUM Routine 08/11/2024 7:59 AM EDT BASIC METABOLIC PANEL Routine 08/11/2024 7:59 AM EDT HEPARIN ASSAY (ANTI-XA) Routine 08/12/19 3:56 AM EDT POCT GLUCOSE, FINGERSTICK (CHARGE) Routine 08/11/2024 2:03 AM EDT ECG 12-LEAD Routine 08/10/2024 10:35 PM EDT XR CHEST 2 VIEWS Routine 08/10/2024 10:[address] THORAX W/O CONTRAST Routine 10:00 PM EDT HEPARIN ASSAY (ANTI-XA) Routine 08/11/19 9:08 PM EDT POCT GLUCOSE, FINGERSTICK (CHARGE) Routine 08/10/2024 8:57 PM EDT POCT GLUCOSE, FINGERSTICK (CHARGE) Routine 08/10/2024 4:38 PM EDT POCT GLUCOSE, FINGERSTICK (CHARGE) Routine 08/10/2024 11:39 AM EDT CARDIAC CATHETERIZATION Routine 08/11/19 11:06 AM EDT XR CHEST 1 VIEW-PORTABLE Routine 025 9:05 AM EDT POCT GLUCOSE, FINGERSTICK (CHARGE) Routine 08/10/2024 7:33 AM EDT PROBNP, N-TERMINAL Routine 08/10/2024 6: 26 AM EDT COMPLETE BLOOD COUNT, WITHOUT DIFFERENTIAL Routine 08/10/2024 6:26 AM EDT HEPARIN ASSAY (ANTI-XA) Routine 08/11/19 6:26 AM EDT MAGNESIUM Routine 08/10/2024 6:26 AM EDT BASIC METABOLIC PANEL Routine 08/10/2024 6:26 AM EDT POCT GLUCOSE, FINGERSTICK (CHARGE) Routine 08/10/2024 4:11 AM EDT POCT GLUCOSE, FINGERSTICK (CHARGE) Routine 08/10/2024 2:13 AM EDT HEPARIN ASSAY (ANTI-XA) Routine 08/10/19 10:09 PM EDT HEPARIN ASSAY (ANTI-XA) Routine 08/10/19 9:19 PM EDT POCT GLUCOSE, FINGERSTICK (CHARGE) Routine 08/09/2024 8:43 PM EDT POCT GLUCOSE, FINGERSTICK (CHARGE) Routine 08/09/2024 4:44 PM EDT HEPARIN ASSAY (ANTI-XA) Routine 08/10/19 2:59 PM EDT POCT GLUCOSE, FINGERSTICK (CHARGE) Routine 08/09/2024 11:47 AM EDT ECG 12-LEAD Routine 08/09/2024 9:44 AM EDT POCT GLUCOSE, FINGERSTICK (CHARGE) Routine 08/09/2024 7:57 AM EDT COMPLETE BLOOD COUNT, WITHOUT DIFFERENTIAL Routine 08/09/2024 6:03 AM EDT HEPARIN ASSAY (ANTI-XA) Routine 08/10/19 6:03 AM EDT MAGNESIUM Routine 08/09/2024 6:03 AM EDT BASIC METABOLIC PANEL Routine 08/09/2024 6:03 AM EDT US RENAL Routine 08/09/2024 4:07 AM EDT POCT GLUCOSE, FINGERSTICK (CHARGE) Routine 08/09/2024 3:13 AM EDT POCT GLUCOSE, FINGERSTICK (CHARGE) Routine 08/08/2024 8:41 PM EST HEPARIN ASSAY (ANTI-XA) Routine 08/09/19 7:46 PM EST POCT GLUCOSE, FINGERSTICK (CHARGE) Routine 08/08/2024 4:41 PM EST HEPARIN ASSAY (ANTI-XA) Routine 08/09/19 2:21 PM EST POCT GLUCOSE, FINGERSTICK (CHARGE) Routine 08/08/2024 11:34 AM EST POCT GLUCOSE, FINGERSTICK (CHARGE) Routine 08/08/2024 8:04 AM EST HEPARIN ASSAY (ANTI-XA) Routine 08/09/19 6:48 AM EST HEPATIC FUNCTION PANEL Routine 4:21 AM EST HIGH SENSITIVITY TROPONIN T Routine 08/08/2024 4:21 AM EST LACTIC ACID, PLASMA Routine 08/08/2024 4 :21 AM EST MAGNESIUM Routine 08/08/2024 4:21 AM EST BASIC METABOLIC PANEL Routine 08/08/2024 4:21 AM EST ECG 12-LEAD Routine 08/08/2024 3:38 AM EST POCT GLUCOSE, FINGERSTICK (CHARGE) Routine 08/08/2024 2:21 AM EST POCT GLUCOSE, FINGERSTICK (CHARGE) Routine 08/07/2024 8:08 PM EST HEPARIN ASSAY (ANTI-XA) Routine 08/08/19 5:51 PM EST ECG 12-LEAD Routine 08/07/2024 4:30 PM EST POCT GLUCOSE, FINGERSTICK (CHARGE) Routine 08/07/2024 4:08 PM EST XR KNEE 1 OR 2 VIEWS-BILATERAL Routine 08/07/2024 2:45 PM EST CREATINE KINASE MB FRACTION CARD 08/07/2024 1:46 PM EST CREATINE KINASE, REFLEX TO CKMB Routine 08/07/2024 1:46 PM EST HIGH SENSITIVITY TROPONIN T CARD 08/07/2024 1:46 PM EST ECG 12-LEAD Routine 08/07/2024 1:16 PM EST HEPARIN ASSAY (ANTI-XA) Routine 08/08/19 12:39 PM EST ECG 12-LEAD Routine 08/07/2024 12:08 PM EST POCT GLUCOSE, FINGERSTICK (CHARGE) Routine 08/07/2024 11:54 AM EST POCT GLUCOSE, FINGERSTICK (CHARGE) Routine 08/07/2024 8:06 AM EST ECG 12-LEAD Routine 08/07/2024 7:31 AM EST HEPARIN ASSAY (ANTI-XA) Routine 08/08/19 6:16 AM EST MAGNESIUM Routine 08/07/2024 6:16 AM EST COMPLETE BLOOD COUNT, WITHOUT DIFFERENTIAL Routine 08/07/2024 6:16 AM EST BASIC METABOLIC PANEL Routine 08/07/2024 6:16 AM EST POCT GLUCOSE, FINGERSTICK (CHARGE) Routine 08/07/2024 2:08 AM EST HEPARIN ASSAY (ANTI-XA) Routine 08/07/19 10:29 PM EST POCT GLUCOSE, FINGERSTICK (CHARGE) Routine 08/06/2024 8:38 PM EST POCT GLUCOSE, FINGERSTICK (CHARGE) Routine 08/06/2024 4:40 PM EST MAGNESIUM Routine 08/06/2024 4:32 PM EST COMPREHENSIVE METABOLIC PANEL Routine 08/06/2024 4:32 PM EST OSMOLALITY Routine 08/06/2024 4:32 PM EST HEPARIN ASSAY (ANTI-XA) Routine 08/07/19 4:32 PM EST UREA NITROGEN, URINE, RANDOM Routine 08/06/2024 3:00 PM EST OSMOLALITY, URINE Routine 08/06/2024 3:0 0 PM EST SODIUM, URINE, RANDOM Routine 08/06/2024 3:00 PM EST ELECTROLYTES, URINE Routine 08/06/2024 3 :00 PM EST ECHOCARDIOGRAM (TTE) COMPREHENSIVE (CONTRAST PRN) Routine 08/06/2024 11:46 AM EST POCT GLUCOSE, FINGERSTICK (CHARGE) Routine 08/06/2024 11:40 AM EST HEPARIN ASSAY (ANTI-XA) Routine 08/07/19 10:26 AM EST ECG 12-LEAD Routine 08/06/2024 9:00 AM EST ECG 12-LEAD Routine 08/06/2024 8:04 AM EST POCT GLUCOSE, FINGERSTICK (CHARGE) Routine 08/06/2024 7:41 AM EST URIC ACID Routine 08/06/2024 6:41 AM EST CREATINE KINASE MB FRACTION Routine 08/06/2024 6:41 AM EST HIGH SENSITIVITY TROPONIN T Routine 08/06/2024 6:41 AM EST LIPID PANEL Routine 08/06/2024 6:41 AM EST CREATINE KINASE, REFLEX TO CKMB Routine 08/06/2024 6:41 AM EST MAGNESIUM Routine 08/06/2024 6:41 AM EST COMPLETE BLOOD COUNT, WITHOUT DIFFERENTIAL Routine 08/06/2024 6:41 AM EST HEMOGLOBIN A1C WITH ESTIMATED AVERAGE GLUCOSE Routine 08/06/2024 6:41 AM EST BASIC METABOLIC PANEL Routine 08/06/2024 6:41 AM EST HIGH SENSITIVITY TROPONIN T CARD 08/06/2024 1:19 AM EST URINALYSIS WITH REFLEX TO MICROSCOPIC Routine 08/06/2024 1:07 AM EST XR CHEST 1 VIEW-PORTABLE Routine 025 10:59 PM EST ECG 12-LEAD Routine 08/05/2024 10:45 PM EST PROBNP, N-TERMINAL Routine 08/05/2024 10:30 PM EST HIGH SENSITIVITY TROPONIN T Routine 08/05/2024 10:30 PM EST HEPARIN ASSAY (ANTI-XA) Routine 08/06/19 10:30 PM EST PHOSPHORUS Routine 08/05/2024 10:30 PM EST MAGNESIUM Routine 08/05/2024 10:30 PM EST BASIC METABOLIC PANEL Routine 08/05/2024 10:30 PM EST TSH, HIGHLY SENSITIVE Routine 08/05/2024 10:30 PM EST HEMOGLOBIN A1C WITH ESTIMATED AVERAGE GLUCOSE Routine 08/05/2024 10:30 PM EST PARTIAL THROMBOPLASTIN TIME (PTT) Routine 08/05/2024 10:30 PM EST PROTIME-INR Routine 08/05/2024 10:30 PM EST COMPLETE BLOOD COUNT, WITH DIFFERENTIAL Routine 08/05/2024 10:30 PM EST POCT GLUCOSE, FINGERSTICK (CHARGE) Routine 08/05/2024 10:17 PM EST from Last 3 Months Results * (ABNORMAL) POCT Glucose, Fingerstick (09/02/2024 12:13 PM EDT) Only the most recent of136 resultswithin the time period is included. POC Glucose 213(H) 65 - 99 mg/dL 09/02/2024 12:16 PM EDT Blood specimen / Unknown 09/02/2024 12:13 PM EDT 09/02/2024 12:14 PM EDT Myles Augustine POINT OF CARE TEST ORDERABLES Fi nal Result HOSPITAL LAB See Below * PHOSPHORUS (09/02/2024 5:13 AM EDT) Only the most recent of17 resultswithin the time period is included. Phosphorus 3.4 2.7 - 4.5 mg/dL 09/02/2024 7:06 AM EDT [facility] Blood Blood specimen / Unknown 09/02/2024 5:13 AM EDT 09/02/2024 6:23 AM EDT Coleman BRANCH LAB BLOOD ORDERABLES Final Result [address] [address], [address] [address] * MAGNESIUM (09/02/2024 5:13 AM EDT) Only the most recent of28 resultswithin the time period is included. Magnesium 2.0 1.6 - 2.7 mg/dL 09/02/2024 7:06 AM EDT [facility] Blood Blood specimen / Unknown 09/02/2024 5:13 AM EDT 09/02/2024 6:23 AM EDT us Coleman BRANCH LAB BLOOD ORDERABLES Final Result [facility] [address] [place] [address], [facility] [address] [place] [address] * (ABNORMAL) BASIC METABOLIC PANEL (09/02/2024 5:13 AM EDT) Only the most recent of40 resultswithin the time period is included. Glucose 113(H) 65 - 99 mg/dL 09/02/2024 7:06 AM [facility] Comment:Fasting: <100 mg/dL, Non-Fasting: <200 mg/dL (ADA 2004) Blood Urea Nitrogen (BUN) 50(H) 8 - 21 mg/dL 09/02/2024 7:06 AM [facility] Creatinine 3.0(H) 0.5 - 1.3 mg/dL 09/02/2024 7:06 AM [facility] eGFR 21(L) >59 09/02/2024 7:06 AM [facility] Comment:CKD-EPI (2020) in mL /min/1.73 sq meters. Sodium 138 136 - 145 mmol/L 09/02/2024 7:06 AM [facility] Potassium 4.9 3.4 - 5.3 mmol/L 09/02/2024 7:06 AM [facility] Chloride 108(H) 98 - 107 mmol/L 09/02/2024 7:06 AM [facility] CO2 21(L) 22 - 33 mmol/L 09/02/2024 7:06 AM [facility] Anion Gap 9 7 - 17 09/02/2024 7:06 AM [facility] Calcium 8.6(L) 8.7 - 10.5 mg/dL 09/02/2024 7:06 AM [facility] BUN/Creatinine Ratio 17 10.0 - 25.0 Ratio 09/02/2024 7:06 AM [facility] Blood Blood specimen / Unknown 09/02/2024 5:13 AM EDT 09/02/2024 6:23 AM EDT Coleman BRANCH LAB BLOOD ORDERABLES Final Result Performing Organization Address [facility] Co de Phone Number [address] [address], [address] [address] * ECG 12 lead (09/02/2024 4:36 AM EDT) Only the most recent of29 resultswithin the time period is included. Pathologist [facility] Ventricular rate 82 BPM EKG [facility] Atrial rate 97 BPM EKG [facility] P-R interval 266 ms EKG [facility] QRS duration 102 ms EKG [facility] Q-T interval 404 ms EKG [facility] QTC calculation (Bazett) 472 ms EKG [facility] P axis 51 degrees EKG [facility] R axis 46 degrees EKG [facility] T axis 194 degrees EKG [facility] 09/02/2024 4:36 AM EDT Narrative EKG [facility] - 09/02/2024 3:24 PM EDT Sinus rhythm with 1st degree A-V block with Blocked Premature atrial complexes T wave abnormality, consider inferolateral ischemia Prolonged QT Abnormal ECG When compared with ECG of 01-Sep-2024 04:16, Premature atrial complexes are now Present Confirmed by MD Villalobos Mohammed ([id number]) on 09/02/2024 3:24:44 PM Procedure Note Kylah Villalobos MD - 09/02/2024 Sinus rhythm with 1st degree A-V block with Blocked Premature atrialcomplexes T wave abnormality, consider inferolateral ischemia Prolonged QT Abnormal ECG When compared with ECG of 01-Sep-2024 04:16, Premature atrial complexes are now Present Confirmed by MD Villalobos Mohammed ([id number]) on 09/02/2024 3:24:44 PM Manny BRANCH ECG ORDERABLES Final Result Performing Organization Address City/[facility]/ZIP Co de Phone Number [facility] * (ABNORMAL) Complete Blood Count WITHOUT Differential - Early AM (08/21/2024 5:11 AM EDT) Only the most recent of13 resultswithin the time period is included. White Blood Cell Count 12.1(H) 4.0 - 11.0 Thou/uL 08/21/2024 6:56 AM [facility] Platelet Count 393 150 - 450 Thou/uL 08/21/2024 6:56 AM [facility] Hemoglobin 10.0(L) 13.0 - 17.7 g/dL 08/21/2024 6:56 AM [facility] Hematocrit 30.4(L) 39.0 - 54.0 % 08/21/2024 6:56 AM [facility] Red Blood Cell Count 3.38(L) 4.50 - 6.20 Mil/uL 08/21/2024 6:56 AM [facility] MCV 90 80 - 100 fL 08/21/2024 6:56 AM [facility] MCH 29.6 27.0 - 31.0 pg 08/21/2024 6:56 AM [facility] MCHC 32.9 30.0 - 36.0 g/dL 08/21/2024 6:56 AM [facility] RDW 13.2 11.5 - 14.5 % 08/21/2024 6:56 AM [facility] MPV 9.4 7.5 - 12.5 fL 08/21/2024 6:56 AM [facility] Blood Blood specimen / Unknown 08/21/2024 5:11 AM EDT 08/21/2024 6:49 AM EDT us Aerovil Y Ania Luong PA-C LAB BLOOD ORDERABLES Final Result [facility] [address] [place] [address], [facility] [address] [place] [address] * XR Chest 2 views (08/19/2024 5:01 PM EDT) Only the most recent of2 resultswithin the time period is included. Anatomical Region Laterality Modality Chest Computed Radiogr aphy 08/19/2024 4:49 PM EDT Impressions 08/21/2024 6:41 AM EDT Linear opacity at the left base likely atelectasis Narrative 08/21/2024 6:41 AM EDT EXAMINATION: XR CHEST CLINICAL INFORMATION: S/p cardiac surgery, monitor widened mediastinum/cardiomegaly, eval for effusion/PTX/edema. COMPARISON: XR Chest 08/17/2024 TECHNIQUE: PA and lateral radiographs of the chest were obtained. FINDINGS: Sternotomy wires in place intact. Linear opacity in the left mid to lower lung slightly more prominent than previous likely atelectasis. No pneumothorax no definite effusion Cardiomediastinal silhouette unchanged. Surgical clips overlie the right axillary region. Procedure Note Triston Arce MD - 08/21/2024 EXAMINATION: XR CHEST CLINICAL INFORMATION: S/p cardiac surgery, monitor widened mediastinum/cardiomegaly, eval for effusion/PTX/edema. COMPARISON: XR Chest 08/17/2024 TECHNIQUE: PA and lateral radiographs of the chest were obtained. FINDINGS: Sternotomy wires in place intact. Linear opacity in the left mid to lower lung slightly more prominent than previous likely atelectasis. No pneumothorax no definite effusion Cardiomediastinal silhouette unchanged. Surgical clips overlie the right axillary region. IMPRESSION: Linear opacity at the left base likely atelectasis Edgar Bone APRN IMG DIAGNOSTIC IMAGING ORDERA BLES Final Result * (ABNORMAL) Cooximetry, Venous (08/18/2024 12:03 AM EDT) Only the most recent of10 resultswithin the time period is included. Hemogloblin, Total 5.4(L) 13.0 - 17.7 g/dL 08/18/2024 12:50 AM EDT [facility] O2 Saturation, Venous 55.3 % 12:50 AM EDT [facility] Carboxyhemoglobin 1.4 0.0 - 2.0 % 08/18/2024 12:50 AM EDT [facility] Methemoglobin 0.8 0.4 - 1.5 % 08/18/2024 12:50 AM EDT [facility] Venous O2 Content 2.9(L) 7.2 - 17.2 mL/dL 08/18/2024 12:50 AM EDT [facility] Blood Blood specimen / Unknown 08/18/2024 12:03 AM EDT 08/18/2024 12:44 AM EDT [facility]AB[facility] Final Res ult Performing Organization Address [facility] de Phone Number [address] [address], [address] [address] * (ABNORMAL) Hemoglobin and Hematocrit (08/18/2024 12:03 AM EDT) Only the most recent of6 resultswithin the time period is included. Hematocrit 26.4(L) 39.0 - 54.0 % 08/18/2024 12:56 AM EDT [facility] Hemoglobin 8.8(L) 13.0 - 17.7 g/dL 08/18/2024 12:56 AM EDT [facility] Blood Blood specimen / Unknown 08/18/2024 12:03 AM EDT 08/18/2024 12:46 AM EDT [facility] LAB BLOOD ORDERABLES Final Res ult Performing Organization Address [facility] Co de Phone Number [address] [address], [address] [address] * XR Chest 1 view-Portable (08/17/2024 7:02 AM EDT) Only the most recent of8 resultswithin the time period is included. Anatomical Region Laterality Modality Chest Computed Radiogr aphy 08/17/2024 4:52 AM EDT Impressions 08/17/2024 4:26 PM EDT Moderate to marked cardiomegaly. No consolidation. Narrative 08/17/2024 4:26 PM EDT EXAMINATION: XR CHEST CLINICAL INFORMATION: Diminished BS. COMPARISON: XR Chest 08/16/2024 TECHNIQUE: Frontal view of the chest was obtained. FINDINGS: There are sternotomy sutures. There is a left atrial appendage clip. There is a right internal jugular vein catheter. There are surgical clips overlying the right axilla. The heart is moderately to severely enlarged, similar to the prior exam. There is no consolidation within either lung. No pleural effusion. No pneumothorax. Procedure Note Aris Flores DO - 08/17/2024 EXAMINATION: XR CHEST CLINICAL INFORMATION: Diminished BS. COMPARISON: XR Chest 08/16/2024 TECHNIQUE: Frontal view of the chest was obtained. FINDINGS: There are sternotomy sutures. There is a left atrial appendage clip. There is a right internal jugular vein catheter. There are surgical clips overlying the right axilla. The heart is moderately to severely enlarged, similar to the prior exam. There is no consolidation within either lung. No pleural effusion. No pneumothorax. IMPRESSION: Moderate to marked cardiomegaly. No consolidation. Scott Morley APRN IMG DIAGNOSTIC IMAGING ORDE RABLES Final Result * Transfuse RBC's: (08/16/2024 5:20 AM EDT) Only the most recent of2 resultswithin the time period is included. Scott Morley APRN BLOOD TRANSFUSION ORDERABLE S Final Result * Type and Screen (08/16/2024 1:59 AM EDT) Only the most recent of2 resultswithin the time period is included. ABO/Rh O POSITIVE 08/16/2024 3:38 AM EDT [facility] Antibody Screen NEGATIVE 08/16/2024 3:38 AM EDT [facility] Specimen Expiration 08/19/2024 08/16/2024 3:38 AM EDT [facility] Unit Number [id number] 08/16/2024 3:39 AM EDT [facility] Blood Component Type LEUKOREDUCED RED CELLS 08/16/2024 3:39 AM EDT [facility] Unit Division 00 08/16/2024 3:39 AM EDT [facility] Unit Status ISSUED,FINAL 08/17/2024 12:07 AM EDT [facility] Transfusion Status OK TO TRANSFUSE 08/16/2024 3:39 AM EDT [facility] Crossmatch Result Electronically Compatible 08/16/2024 3:39 AM EDT [facility] Blood Blood specimen / Unknown 08/16/2024 1:59 AM EDT 08/16/2024 2:53 AM EDT Comment:Blood us Scott Morley APRN BLOOD BANK TEST ORDERABLES Final Result Performing Organization Address City/State/[facility] Co de Phone Number [place] [address] * Lactic Acid, Plasma (Routine) (08/16/2024 1:59 AM EDT) Only the most recent of7 resultswithin the time period is included. Lactic Acid 0.9 0.5 - 1.9 mmol/L 08/16/2024 3:08 AM EDT [facility] Blood Blood specimen / Unknown 08/16/2024 1:59 AM EDT 08/16/2024 2:46 AM EDT us Scott Morley APRN LAB BLOOD ORDERABLES Final Result Performing Organization Address [facility] [place] [place] [address], [place] [address] * Prepare RBC's:Prepare in: Units; Number of Units: 1; Transfusion Indications: Hemoglobin greater than 7 gm/dl or HCT greater than 21% & Symptomatic anemia not corrected by conservative therapy (08/16/2024 1:56 AM EDT) Only the most recent of2 resultswithin the time period is included. Units Ordered 1 08/16/2024 1:56 AM EDT 08/16/2024 1:56 AM EDT 08/16/2024 3:39 AM EDT us Scott Morley APRN BLOOD BANK PRODUCT ORDERABL ES Final Result [facility] See Below * (ABNORMAL) Hepatic Function Panel (Routine) (08/16/2024 12:00 AM EDT) Only the most recent of2 resultswithin the time period is included. Pathologist [facility] Alkaline Phosphatase 72 45 - 128 U/L 08/16/2024 1:36 AM EDT [facility] Aspartate Aminotrans (AST) 51 10 - 55 U/L 08/16/2024 1:36 AM EDT [facility] Alanine Aminotrans (ALT) 8(L) 10 - 55 U/L 08/16/2024 1:36 AM EDT [facility] Bilirubin, Total 0.5 0.2 - 1.0 mg/dL 08/16/2024 1:36 AM EDT [facility] Protein, Total 5.5(L) 6.3 - 8.3 g/dL 08/16/2024 1:36 AM EDT [facility] Albumin 2.5(L) 3.4 - 4.8 g/dL 08/16/2024 1:36 AM EDT [facility] Bilirubin, Direct 0.3(H) 0 - 0.2 mg/dL 08/16/2024 1:36 AM EDT [facility] Globulin 3.0 1.5 - 3.9 g/dL 08/16/2024 1:36 AM [facility] Albumin/Globulin Ratio 0.8(L) 1.0 - 3.0 Ratio 08/16/2024 1:36 AM T [facility] Blood Blood specimen / Unknown 08/16/2024 08/16/2024 12:57 AM EDT us Scott Morley APRN LAB BLOOD ORDERABLES Final Result [address] [address], [address] [address] * (ABNORMAL) Blood Gas, Arterial, once today (08/13/2024 11:08 PM EDT) Only the most recent of4 resultswithin the time period is included. pH, Arterial 7.38 7.35 - 7.45 08/13/2024 11:16 PM EDT [facility] pCO2, Arterial 34 32 - 45 mmHG 08/13/2024 11:16 PM EDT [facility] pO2, Arterial 122(H) 75 - 95 mmHG 08/13/2024 11:16 PM EDT [facility] CO2, Total 21(L) 22 - 28 mmol/L 08/13/2024 11:16 PM EDT [facility] Respiratory Info NASAL 4 L/MIN 08/13/2024 11:08 PM EDT [facility] Base Deficiency 3.9 mmol/L 11:16 PM EDT [facility] Comment:Reference Range: Neg ative 2 to Positive 3 Blood Blood specimen / Unknown 08/13/2024 11:08 PM EDT 08/13/2024 11:12 PM EDT us Celena Chang MD LAB BLOOD ORDERABLES Final Res ult Performing Organization Address City/[facility]/[place] [address], [place] [address] * Potassium (08/13/2024 9:10 PM EDT) Pathologist [facility] Potassium 4.8 3.4 - 5.3 mmol/L 08/13/2024 9:34 PM EDT [facility] Blood Blood specimen / Unknown 08/13/2024 9:10 PM EDT 08/13/2024 9:14 PM EDT us Celena Chang MD LAB BLOOD [place] [address], [place] [address] * (ABNORMAL) Blood Gas with Cooximetry, Venous (08/13/2024 3:19 PM EDT) Pathologist [facility] Respiratory Info VENT 100% 08/14/19 3:20 PM EDT [facility] Venous Blood PH 7.36 7.33 - 7.43 08/13/2024 3:41 PM EDT [facility] Venous pCO2 37 35 - 50 mmHG 08/13/2024 3:41 PM EDT [facility] Venous pO2 35 0 - 60 mmHG 08/13/2024 3:41 PM EDT [facility] Venous Total CO2 22(L) 23 - 29 mmol/L 08/13/2024 3:41 PM EDT [facility] Base Deficiency 3.9 mmol/L 3:41 PM EDT [facility] Comment:Reference Range: Neg ative 2 to Positive 3 Hemogloblin, Total 6.4(L) 13.0 - 17.7 g/dL 08/13/2024 3:41 PM EDT [facility] O2 Saturation, Venous 66.8 % 3:41 PM EDT [facility] Carboxyhemoglobin 1.6 0.0 - 2.0 % 08/13/2024 3:41 PM EDT [facility] Methemoglobin 0.6 0.4 - 1.5 % 08/13/2024 3:41 PM EDT [facility] Venous O2 Content 4.2(L) 7.2 - 17.2 mL/dL 08/13/2024 3:41 PM T [facility] Blood Blood specimen / Unknown 08/13/2024 3:19 PM EDT 08/13/2024 3:30 PM EDT Doyle Griggs PA-C LAB BLOOD ORDERABLES Final Result [address] [address], [address] [address] * ISTAT Venous Blood Gas (VBG) (08/13/2024 2:43 PM EDT) Only the most recent of2 resultswithin the time period is included. PH Venous, I-STAT 7.37 7.33 - 7.43 08/13/2024 2:55 PM EDT PCO2 Venous, I-STAT 42.7 35.0 - 50.0 mmHg 08/13/2024 2:55 PM EDT PO2 Venous, I-STAT 37 0 - 60 mmHg 08/13/2024 2:55 PM EDT HCO3 Venous, I-STAT 24.6 23.0 - 28.0 mmol/L 08/13/2024 2:55 PM EDT TCO2 Venous Calc, I-STAT 26 23 - 29 mmol/L 08/13/2024 2:55 PM EDT Base Excess, I-STAT -1 mmol/L 08/13/2024 2:55 PM EDT Comment:Reference Range: Neg ative 2 to Positive 3 SO2 Venous, I-STAT 69 60 - 75 % 08/13/2024 2:55 PM EDT Sample Type, I-STAT VENOUS 08/13/2024 2:55 PM EDT Blood specimen / Unknown 08/13/2024 2:43 PM EDT 08/13/2024 2:52 PM EDT us Russ Paris MD POCT ORDERABLES - DEVICE Final Result Performing Organization Address [facility] de Phone Number [facility] See Below * (ABNORMAL) ISTAT Hemoglobin (08/13/2024 2:43 PM EDT) Only the most recent of11 resultswithin the time period is included. Hemoglobin, I-STAT 10.2(L) 13.0 - 17.7 gm/dL 08/13/2024 2:55 PM EDT Blood specimen / Unknown 08/13/2024 2:43 PM EDT 08/13/2024 2:52 PM EDT us Russ Paris MD POCT ORDERABLES - DEVICE Final Result Performing Organization Address [facility] Phone Number [facility] See Below * (ABNORMAL) ISTAT Hematocrit (08/13/2024 2:43 PM EDT) Only the most recent of11 resultswithin the time period is included. Hematocrit, I-STAT 30.0(L) 39.0 - 54.0 % 08/13/2024 2:55 PM EDT Blood specimen / Unknown 08/13/2024 2:43 PM EDT 08/13/2024 2:52 PM EDT us Russ Paris MD POCT ORDERABLES - DEVICE Final Result Performing Organization Address [facility] LAB See Below * (ABNORMAL) ISTAT Calcium, Ionized (ICA) (08/13/2024 2:43 PM EDT) Only the most recent of11 resultswithin the time period is included. Ionized Calcium, I-STAT 1.48(H) 1.17 - 1.33 mmol/L 08/13/2024 2:55 PM EDT Blood specimen / Unknown 08/13/2024 2:43 PM EDT 08/13/2024 2:52 PM EDT us Russ Paris MD POINT OF CARE TEST ORDERABLES F inal Result Performing Organization Address [facility] LAB See Below * ISTAT Potassium (K) (08/13/2024 2:43 PM EDT) Only the most recent of11 resultswithin the time period is included. Potassium, I-STAT 5.0 3.4 - 5.3 mmol/L 08/13/2024 2:55 PM EDT Blood specimen / Unknown 08/13/2024 2:43 PM EDT 08/13/2024 2:52 PM EDT us Russ Paris MD POINT OF CARE TEST ORDERABLES F inal Result Performing Organization Address [facility] LAB See Below * ISTAT Sodium (Na) (08/13/2024 2:43 PM EDT) Only the most recent of11 resultswithin the time period is included. Sodium, I-STAT 141 136 - 145 mmol/L 08/13/2024 2:55 PM EDT Blood specimen / Unknown 08/13/2024 2:43 PM EDT 08/13/2024 2:52 PM EDT us Russ Paris MD POINT OF CARE TEST ORDERABLES F inal Result Performing Organization Address [facility] LAB See Below * (ABNORMAL) ISTAT Glucose (08/13/2024 2:43 PM EDT) Only the most recent of11 resultswithin the time period is included. Glucose, I-STAT 120(H) 65 - 99 mg/dL 08/13/2024 2:55 PM EDT Blood specimen / Unknown 08/13/2024 2:43 PM EDT 08/13/2024 2:52 PM EDT us Russ Paris MD POCT ORDERABLES - DEVICE Final Result Performing Organization [facility] LAB See Below * (ABNORMAL) ISTAT Activated Clotting Time, Kaolin (08/13/2024 2:04 PM EDT) Only the most recent of9 resultswithin the time period is included. Activated Clotting Time (Kaolin, I-STAT 152(H) 74 - 137 seconds 08/13/2024 2:47 PM EDT Blood specimen / Unknown 08/13/2024 2:04 PM EDT 08/13/2024 2:47 PM EDT us Russ Paris MD POCT ORDERABLES - DEVICE Final Result Performing Organization Address [facility] LAB See Below * (ABNORMAL) ISTAT Arterial Blood Gas (ABG) (08/13/2024 2:03 PM EDT) Only the most recent of9 resultswithin the time period is included. PH Arterial, I-STAT 7.45 7.35 - 7.45 08/13/2024 2:55 PM EDT PCO2 Arterial, I-STAT 34.3 32.0 - 45.0 mmHg 08/13/2024 2:55 PM EDT PO2 Arterial, I-STAT 310(H) 75 - 95 mmHg 08/13/2024 2:55 PM EDT HCO3 Arterial, I-STAT 24.0 22.0 - 26.0 mmol/L 08/13/2024 2:55 PM EDT TCO2 Arterial Calc, I-STAT 25 22 - 28 mmol/L 08/13/2024 2:55 PM EDT Base Excess, I-STAT 0 mmol/L 08/13/2024 2:55 PM EDT Comment:Reference Range: Neg ative 2 to Positive 3 SO2, I-STAT 100.0(H) 94.0 - 97.0 % 08/13/2024 2:55 PM EDT Sample Type, I-STAT Arterial 08/13/2024 2:55 PM EDT Blood specimen / Unknown 08/13/2024 2:03 PM EDT 08/13/2024 2:52 PM EDT us Russ Paris MD POCT ORDERABLES - DEVICE Final Result [facility]OS[facility]ITAL LAB See Below * (ABNORMAL) Thromboelastograph (TEG) (08/13/2024 12:59 PM EDT) Only the most recent of2 resultswithin the time period is included. Reaction Time,Heparinized 9.2 5 - 10 minutes 08/13/2024 2:21 PM EDT [facility] Fibrin Function,Heparin ized 1.5 1 - 3 minutes 08/13/2024 2:21 PM EDT [facility] Max Amplitude,Hepari nized 74.8(H) 50 - 70 mm 08/13/2024 2:21 PM EDT [facility] %Lysis 30 min,Heparinized 0.0 0 - 8 % 08/13/2024 2:21 PM EDT [facility] Anticoagulant Information not given 08/13/2024 1:13 PM EDT [facility] 08/13/2024 12:5 9 PM EDT 08/13/2024 1:07 PM EDT us Generic Provider LAB BLOOD ORDERABLES Final Resu lt Performing Organization Address City/State/[facility] Co de Phone Number [address] [address], [address] [address] * Platelet Count (08/13/2024 12:59 PM EDT) Platelet Count 200 150 - 450 Thou/uL 08/13/2024 1:28 PM EDT [facility] Comment: Test ordered from operating room Called to TC BY AT 13:33 Blood specimen / Unknown 08/13/2024 12:59 PM EDT 08/13/2024 1:21 PM EDT [employer] LAB BLOOD ORDERABLES Final Resul t Performing Organization Address [facility] [place] [address], [address] [address] * (ABNORMAL) Hematocrit (08/13/2024 12:59 PM EDT) Hematocrit 21.9(L) 39.0 - 54.0 % 08/13/2024 1:28 PM EDT [facility] Comment: Test ordered from operating room Called to TC BY AT 13:33 Blood specimen / Unknown 08/13/2024 12:59 PM EDT 08/13/2024 1:21 PM EDT [employer] LAB BLOOD ORDERABLES Final Resul t Performing Organization Address City/[facility] [place] [place] [address], [address] [address] * ANES LINE - PULMONARY ARTERY, WORK ORDER CLERK/SVO2 (08/13/2024 12:30 PM EDT) Only the most recent of2 resultswithin the time period is included. Narrative Awilda Slater MD - 08/13/2024 12:30 PM EDT Awilda Slater MD ? 08/13/2024 12:31 PM Anesthesia Procedure Note - pulmonary artery catheter Insertion -right internal jugular ?? Patient Name: Phil Luong : 1950 Patient location: OR Indications: central pressure monitoring and hemodynamic monitoring Procedure diagnosis: CAD (coronary artery disease) Performed by: Anesthesiologist and Resident/CYBER INTEL PLANNER ? Awilda Slater MD ? Umesh Travis, DO ? Preanesthetic Checklist monitors and equipment checked. Patient's pre-procedure mental status: anesthetized and unresponsive Procedure Preparation Skin prep: 2% chlorhexidine - completely dried prior to procedure Hand hygeine performed prior to needle/catheter insertion Sterile barriers in place: cap, gloves, gown, large sterile sheet and mask Procedure Details Patient position: Trendelenburg Catheter: 8 FrCCO/SVO2 Number of attempts: 1 Post Procedure Post-procedure care: dressing applied, biopatch applied and stabilization device applied Assessment: blood return through all ports Guidewire: not needed No complications us Awilda Slater MD RI ANESTHESIA Final Result * ANES HERNANDEZ (08/13/2024 12:29 PM EDT) Awilda Felder MD - 08/13/2024 12:29 PM EDT Awilda Slater MD ? 08/13/2024 12:29 PM Anesthesia Procedure Note - Transesophageal Echocardiogram (HERNANDEZ) Procedure Order: Transesophageal Echo-Anesthesia [id number] Patient Name: Phil Luong : 1950 Patient location: OR Indications: ischemia detection, volume assessment, regional and global function and valvular function Procedure diagnosis: CAD (coronary artery disease) Performed by: Anesthesiologist ? Awilda Slater MD ? Preanesthetic Checklist monitors and equipment checked. Procedure Details A transesophageal echocardiogram procedure for monitoring and diagnostic was performed with doppler guidance. Images were stored appropriately on linux server administrator. us Awilda Slater MD RI ANESTHESIA Final Result * Pathology (08/13/2024 11:00 AM EDT) Report [facility] [id number] ?? CLIA ID [id number] [address] [place] [address] ??[phone] Surgical Pathology Report PATIENT NAME: PHIL LUONG REC NUMBER: [id number] (AGE): 1950 (Age: 74) SPECIMEN NUMBER: [id number] DATE OBTAINED: 08/13/2024 DIAGNOSIS MEDIASTINAL LYMPH NODE: ??BENIGN/REACTIVE LYMPH NODE. /08/17/2024 Electronically Signed Out ? HAZEL CERVANTES MD COMMENT [id number] Clinical Information and History: 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 TRT 11:00 TIF 11:05 Tissue(s) Submitted: A: MEDIASTINAL LYMPH NODE Gross Description: The specimen is received in formalin labeled mediastinal lymph node and consists of a 1.1 cm in greatest dimension anthracotic irregular rubbery lymph node, which is sectioned and entirely submitted in A1. TRT 11:00, TIF 11:05 on 08/13/24. [facility] Lymph Node(s) Specimen from mediastinum / Unknown 08/13/2024 11:00 AM EDT us Celena Chang MD PATHOLOGY/CYTOLOGY ORDERABLES Final Result [facility]OSPITAL LAB See Below * Tissue Culture (aerobic, anaerobic + Gram stain) (08/13/2024 10:00 AM EDT) Special Requests Test incorrectly ordered by the patient care area. Test credited and correct test order verified by the laboratory. 08/14/2024 2:58 PM EDT [facility] Tissue Sternal bone marrow specimen / Unknown 08/13/2024 10:00 AM EDT us Celena Chang MD MICROBIOLOGY - GENERAL ORDERAB LES Final Result Performing Organization Address [facility]/ZIP Co de Phone Number [facility] [address] [place] [address], * Aerobic culture (Gram stain included) (08/13/2024 10:00 AM EDT) Gram stain suggestive of No neutrophils No squamous cells No organisms seen 08/14/2024 11:05 AM EDT [facility] Culture Negative after 3 days 08/16/2024 7:17 AM EDT [facility] Sternal bone marrow specimen / Unknown 08/13/2024 10:00 AM EDT 08/13/2024 7:42 PM EDT Comment:Swab, Wound us Myles R [facility] MICROBIOLOGY - GENERAL ORDERABLE S Final Result Performing Organization Address [facility] Co de Phone Number [facility] [address] [place] [address], * Anaerobic Culture (08/13/2024 10:00 AM EDT) Culture No anaerobes isolated after 7 days 08/20/2024 9:16 AM EDT [facility] Sternal bone marrow specimen / Unknown 08/13/2024 10:00 AM EDT 08/13/2024 7:42 PM EDT Comment:Swab, Wound us Myles R [facility] MICROBIOLOGY - GENERAL ORDERABLE S Final Result Performing Organization Address [facility] Co de Phone Number [facility] [address] [place] [address], [place] * ANES LINE - ARTERIAL (08/13/2024 9:52 AM EDT) Narrative Awilda Slater MD - 08/13/2024 9:52 AM EDT Awilda Slater MD ? 08/13/2024 ??9:52 AM Anesthesia Procedure Note - Arterial Line Insertion- L radial Patient Name: Phil Luong : 1950 Indications: frequent lab draws, hemodynamic monitoring and blood gases Procedure diagnosis: At high risk for hemodynamic instability Performed by: Resident/CYBER INTEL PLANNER ? Awilda Slater MD ? Umesh Travis, DO ? Chart Verification ID band applied and present Patient ID verified via arm band, verbally with patient. Pre-op test results not applicable Consents confirmed: anesthesia and informed Nursing assessment complete: not applicable Diagnostic and/or radiology results displayed correctly: not applicable Anesthesia questionnaire complete: yes Antibiotic ordered: not applicable Blood products needed: no Procedure Verification/TIMEOUT Correct procedure: yes Correct patient position: yes Correct laterality: not applicable Correct site: yes Site/side marked: not applicable Sterility reviewed: yes Special equipment or implants: not applicable Safety precautions discussed with procedural staff: yes Procedure Preparation Skin prep: 2% chlorhexidine - completely dried prior to procedure Hand hygeine performed prior to needle/catheter insertion Sterile barriers in place: cap, gloves, large sterile sheet and mask Procedure Details Alexandre's test normal? normal Needle: 20 g Seldinger technique used Number of attempts: 1 Post-procedure Verification Counts correct: not applicable Specimens labeled correctly: not applicable Equipment problems to be addressed: not applicable Recovery issues: no Post Procedure Post-procedure: stablization device applied (with dressing and biopatch) Additional Comments: Well-tolerated. Awilda Slater MD RI ANESTHESIA Final Result * ANES INTUBATION (08/13/2024 9:47 AM EDT) Narrative Awilda Slater MD - 08/13/2024 9:47 AM EDT Awilda Slater MD ? 08/13/2024 ??9:47 AM Anesthesia Procedure Note - Elective intubation Patient Name: Phil Luong : 1950 Procedure indications: airway protection Procedure diagnosis: Anesthesia Performed by: Resident/CYBER INTEL PLANNER ? Awilda Slater MD ? Umesh Travis, ? Chart Verification ID band applied and present Patient ID verified via arm band, verbally with patient. H&P verified: Yes Pre-op test results in chart Consents confirmed: operative, informed and anesthesia Nursing assessment complete: yes Airway: airway not difficult Procedure Verification/TIMEOUT Correct procedure: yes Preanesthetic Checklist monitors and equipment checked. Patient's pre-procedure mental status: awake The patient was not sedated prior to procedure. Airway not difficult - NPO status: > 8 hours Procedure Details Intubation route: oral Intubation method: direct laryngoscopy ??Mac 3 Number of attempts: 1 Patient status for intubation: paralyzed, sedated and unresponsive Patient position: supine Quality of BVM: easy Tube size: 8.0 mm Tube: EVAC ??- cuffed, cuff inflated and minimal leak test Cord visualization: Grade I Placement confirmation method: chest rise and ETCO2 monitor Breath sounds: equal bilaterally ETT to lip: 23 cm Dentition: same as baseline Complications: no complications us Awilda Slater MD RI ANESTHESIA Final Result * Transesophageal Echo-Anesthesia (08/13/2024 8:10 AM EDT) LV Diastolic Volume 121 mL LV Systolic Volume 75 mL LVOT diameter 2.4 cm LVOT diameter mean 2.4 cm LVOT mn grad mean 1.0 mmHg LVOT VTI MEAN 12.1 cm LVOT mn grad 1.0 mmHg LVOT VTI 14.8 cm LVOT peak aidan 0.8 m/s LVOT peak aidan mean 0.8 m/s MV E' Lateral Velocity 5.35 cm/s MV E' Lateral Velocity Mean 5.35 cm/s AV mean gradient mean 3.0 mmHg Ao VTI Mean 23.1 cm AV mean gradient 3.0 mmHg Ao VTI 23.1 cm Ao peak aidan 1.1 m/s Ao peak aidan mean 1.1 m/s Ascending aorta 3.5 cm Ascending aorta mean 3.5 cm E wave decelartion time 267 ms E wave decelartion time mean 267 ms MV stenosis pressure 1/2 time mean 78 ms MV stenosis pressure 1/2 time 78 ms MV Peak A-Wave 63.1 cm/s MV Peak A-Wave Mean 63.1 cm/s MV Peak E-Wave 67.3 cm/s MV Peak E-Wave Mean 67.3 cm/s Hurt BP EF (55-75) 38 % E/A ratio 1.07 E/E' Lateral 12.6 AV peak gradient 4.8 mmHg LVOT area 4.5 cm2 MV valve area p 1/2 method 2.82 cm2 E/E' ratio 12.58 AV LVOT peak gradient 2.6 mmHg LVOT stroke volume 67 mL AV area by cont VTI 2.9 cm2 Dimensionless Index 0.64 Anatomical Region Laterality Modality Ultrasound Narrative 08/16/2024 7:13 PM EDT ?Left ventricular systolic function is moderately decreased with an estimated ejection fraction of 35-39%. ?Right ventricular systolic function is normal. ?There is no thrombus in the left atrial appendage. There is no mass in the left atrial appendage. ?There is no aortic regurgitation or stenosis. ?There is trace mitral regurgitation. POST PROCEDURE CONCLUSIONS Findings after complete separation from CPB status post CABGx4 (BARBER-LAD, SVG-OM, SVG-Ramus, SVG-acute marginal) and left atrial appendage ligation. Left ventricular systolic function is mildly reduced, LVEF 45-49%. There are no new RWMA. There is significant concentric hypertrophy. The left ventricle is mildly underfilled. There is at least grade 2 diastolic dysfunction. Right ventricular systolic function is normal. All valve structure and function is unchanged from pre-procedure findings and normal. The left atrial appendage is no longer seen status post ligation. There is no evidence of aortic dissection following aortic decannulation. There is no pericardial or significant pleural effusion after chest closure. Note: Measurements below are from exam pre-procedure. Significant differences, if present post procedure, are noted above in this section. Technical Details Doppler color flow mapping and pulsed wave and/or continuous wave with spectral doppler interrogation, complete, were performed during the study. General anesthesia was given. Overall the study quality was adequate. Sedation was performed by anesthesiology. Left Ventricle The left ventricle is normal in size. There is moderate hypertrophy. Left ventricular systolic function is moderately decreased with an estimated ejection fraction of 35-39%. There is significant diastolic dysfunction. Right Ventricle The right ventricle is normal in size. Right ventricular systolic function is normal. A catheter is present in the right ventricle. Left Atrium The left atrial cavity is dilated. The left atrial appendage is normal. There is no thrombus in the left atrial appendage. There is no mass in the left atrial appendage. IVC/SVC A venous catheter is present in the superior vena cava. Mitral Valve The mitral valve is structurally normal. There is trace mitral regurgitation.There is no mitral valve stenosis. Tricuspid Valve The tricuspid valve is structurally normal. There is trace tricuspid regurgitation. There is no tricuspid valve stenosis. Aortic Valve The aortic valve is tricuspid. The aortic valve leaflets exhibit normal excursion.There is no aortic regurgitation or stenosis. Pulmonic Valve The pulmonic valve was not well visualized. There is trace pulmonic regurgitation. There is no pulmonic valve stenosis. Ascending Aorta There is a sessile atheroma protruding less than 5 mm into the lumen (Grade 3). Pericardium There is no pericardial effusion.There is no evidence of pleural effusion. Study Details HERNANDEZ was performed at the surgeon's request. Prior the procedure, informed consent was discussed with and obtained from the patient. A time-out was done in the operating room to confirm the patient and procedure. After introduction of general anesthesia, endotracheal intubation, and OG decompression, the HERNANDEZ probe was placed atraumatically in the esophagus. HERNANDEZ was performed for pre-surgical evaluation of cardiac structure and function, and post-surgical evaluation of ventricular function. Pre- and post-CPB 2D imaging, Doppler, and color flow evaluation were performed. At the end of the surgical procedure the probe was removed, and no apparent complications were noted. The patient was transported to the ICU with oxygen and full ASA monitoring. All pre- and post-bypass echo findings were discussed with the surgeon intraoperatively. Wall Scoring Baseline Score Index: 1.35 The following segments are hypokinetic: basal anteroseptal, basal inferoseptal, basal inferior, mid anteroseptal, mid inferoseptal and mid inferior. All other segments are normal. us Doyle Griggs PA-C CV ECHO ORDERABLES Final R esult * Heparin Assay (Anti Xa) (08/13/2024 7:41 AM EDT) Only the most recent of19 resultswithin the time period is included. [facility] Signature Anti Xa 0.51 IU/mL 08/13/2024 8:35 AM EDT [facility] Comment: (NOTE) Heparin Thromboembolic/Standard/Full Dose Protocol: Therapeutic Range: ? Age 18+: ? 0.30 - 0.70 IU/mL ? Age 0 - 17: ?? 0.35 - 0.70 IU/mL ? Heparin Cardiac/Low Dose Protocol: ? Therapeutic Range: ? 0.30 - 0.50 IU/mL ? Low Molecular Weight Heparin: ? Therapeutic Range: ? Age 18+: ?? 0.50 - 1.09 IU/mL for twice daily dosing (or adjusted to daily for poor renal function) ? Age 18+: ?? 1.00 - 2.00 ??IU/mL for once daily dosing ? Age 0-17: ??0.50 - 1.00 IU/mL Anticoagulant IV HEPARIN, UNFRACTIONATED 08/12/2024 11:00 PM EDT [facility] Blood Blood specimen / Unknown 08/13/2024 7:41 AM EDT 08/13/2024 8:08 AM EDT us Max Montero MD LAB BLOOD ORDERABLES Final R esult Performing Organization Address [facility]/State/ZIP Co de Phone Number [facility] [address] [place] [address], [facility] [address] [place] [address] * CT Thorax w/o contrast (08/10/2024 10:00 PM EDT) Anatomical Region Laterality Modality Chest Computed Tomogra phy 08/10/2024 9:38 PM EDT Impressions 08/11/2024 1:39 PM EDT * ??Multifocal groundglass and partially consolidative opacities throughout the bilateral lungs representing multifocal infection. * ??Small right pleural effusion. * ??Smooth intralobular septal thickening may represent mild volume overload. * ??Pulmonary artery enlargement measuring 4.2 cm consistent with pulmonary artery hypertension. * ??Moderate to severe multivessel coronary artery calcifications. Fleischner guidelines were followed. Interpreted by: ??Cynthia Cantu MD Senior Materials Planner I personally reviewed the images and the resident's preliminary report and AGREE with the report as it is now presented ([id number]). Narrative 08/11/2024 1:39 PM EDT EXAMINATION: CT CHEST WITHOUT CONTRAST CLINICAL INFORMATION: Preop cardiac surgery. COMPARISON: CT chest abdomen and pelvis 10/13/2023 TECHNIQUE: Multidetector volumetric imaging was performed from the thoracic inlet to below the diaphragms without intravenous contrast. Sagittal and coronal reformatted images were obtained on the technologist's workstation. This CT examination was performed using dose optimization techniques as appropriate, variously including the following: *Automated exposure control *Adjustment of mA and/or kV according to patient size (this includes techniques or standardized protocols for targeted exams where dose is matched to indication/reason for exam; i.e. extremities or head) *Use of iterative reconstruction technique Total exam dose-length product 329 mGy-cm FINDINGS: LUNG: Respiratory motion artifact limits evaluation, predominantly of the lung bases. The central airways are patent. There are multifocal groundglass and partially consolidative opacities throughout all lobes of the lungs bilaterally, greatest within the right upper lobe. Diffuse bilateral bronchial wall thickening. Mild smooth intralobular septal thickening. Redemonstration of the calcified nodule/granuloma in the peripheral right lung apex, unchanged from prior. PLEURA: Trace right pleural effusion. No pneumothorax. CORONARY ARTERY CALCIFICATION: Moderate to severe multivessel coronary artery calcifications are visualized MEDIASTINUM: The heart is prominent in size. No pericardial effusion. The thyroid gland is unremarkable. Again seen are the scattered calcified right hilar lymph nodes, unchanged from prior. There are mildly prominent yet not pathologically enlarged mediastinal lymph nodes visualized, for instance, there is a prevascular lymph node measuring 0.9 cm in short axis. VASCULAR: The aorta is normal in caliber with mild scattered calcific atherosclerotic disease. The pulmonary artery is enlarged measuring approximately 4.2 cm. Redemonstration of axillary to axillary bypass graft. CHEST WALL/AXILLA: No axillary or internal mammary lymphadenopathy. Surgical clips are noted in the right axillary region. OSSEOUS STRUCTURES: No acute or suspicious osseous abnormality. Multilevel spondylosis. Mild anterolisthesis of C7-T1. UPPER ABDOMEN: Status post cholecystectomy. Punctate calcification within the right hepatic lobe and scattered coarse calcifications throughout the spleen, possibly sequela parenchymal metastatic disease. Small hiatal hernia. Procedure Note Tom Miller MD - 08/11/2024 EXAMINATION: CT CHEST WITHOUT CONTRAST CLINICAL INFORMATION: Preop cardiac surgery. COMPARISON: CT chest abdomen and pelvis 10/13/2023 TECHNIQUE: Multidetector volumetric imaging was performed from the thoracic inlet to below the diaphragms without intravenous contrast. Sagittal and coronal reformatted images were obtained on the technologist's workstation. This CT examination was performed using dose optimization techniques as appropriate, variously including the following: *Automated exposure control *Adjustment of mA and/or kV according to patient size (this includes techniques or standardized protocols for targeted exams where dose is matched to indication/reason for exam; i.e. extremities or head) *Use of iterative reconstruction technique Total exam dose-length product 329 mGy-cm FINDINGS: LUNG: Respiratory motion artifact limits evaluation, predominantly of the lung bases. The central airways are patent. There are multifocal groundglass and partially consolidative opacities throughout all lobes of the lungs bilaterally, greatest within the right upper lobe. Diffuse bilateral bronchial wall thickening. Mild smooth intralobular septal thickening. Redemonstration of the calcified nodule/granuloma in the peripheral right lung apex, unchanged from prior. PLEURA: Trace right pleural effusion. No pneumothorax. CORONARY ARTERY CALCIFICATION: Moderate to severe multivessel coronary artery calcifications are visualized MEDIASTINUM: The heart is prominent in size. No pericardial effusion. The thyroid gland is unremarkable. Again seen are the scattered calcified right hilar lymph nodes, unchanged from prior. There are mildly prominent yet not pathologically enlarged mediastinal lymph nodes visualized, for instance, there is a prevascular lymph node measuring 0.9 cm in short axis. VASCULAR: The aorta is normal in caliber with mild scattered calcific atherosclerotic disease. The pulmonary artery is enlarged measuring approximately 4.2 cm. Redemonstration of axillary to axillary bypass graft. CHEST WALL/AXILLA: No axillary or internal mammary lymphadenopathy. Surgical clips are noted in the right axillary region. OSSEOUS STRUCTURES: No acute or suspicious osseous abnormality. Multilevel spondylosis. Mild anterolisthesis of C7-T1. UPPER ABDOMEN: Status post cholecystectomy. Punctate calcification within the right hepatic lobe and scattered coarse calcifications throughout the spleen, possibly sequela parenchymal metastatic disease. Small hiatal hernia. IMPRESSION: * Multifocal groundglass and partially consolidative opacities throughout the bilateral lungs representing multifocal infection. * Small right pleural effusion. * Smooth intralobular septal thickening may represent mild volume overload. * Pulmonary artery enlargement measuring 4.2 cm consistent with pulmonary artery hypertension. * Moderate to severe multivessel coronary artery calcifications. Fleischner guidelines were followed. Interpreted by: Cynthia Cantu MD Senior Materials Planner I personally reviewed the images and the resident's preliminary report and AGREE with the report as it is now presented ([email or web address]). Vania Good PA-C IMG CT ORDERABLES Final Resu lt * CC CORONARY ANGIO W/LV (08/10/2024 11:06 AM EDT) Anatomical Region Laterality Modality Radiographic Renetta ging Narrative 08/10/2024 11:25 AM EDT Table formatting from the original result was not included. Images from the original result were not included. [facility] [place] [facility] - Cardiac Catheterization Laboratory PATIENT DEMOGRAPHIC INFORMATION Name: Phil Luong : 1950 74 y.o. Sex: male Gender: male Procedure Date: 08/10/2024 PROCEDURE DETAILS Sand Bobber: Kervin Craft MD Fellow: CHUYITA Bullard Foreign Exchange Dealer(s): none Indications for Procedure: NSTEMI Referring Physician: Jermaine Remy Referring Strategic Buyer: Pool Haas MD PCP: Uma Friedman MD Procedure(s): Procedures: ??* CORONARY ANGIO W/LV CONCLUSIONS/RECOMMENDATIONS Multivessel coronary artery disease with occlusion of the RCA (culprit vessel for the NSTEMI), significant LAD, diagonal, ramus and OM disease. Mildly elevated left ventricular end diastolic pressure measured at 15-18 mm Hg. No peak to peak pressure gradient across the aortic valve. Recommendations: Multivessel coronary artery disease in a diabetic patient with reduced ejection fraction. Please consult CT surgery for CABG assessment. No percutaneous intervention was performed on the RCA because his event occurred 4 days ago and patient was chest pain free with adequate breathing at the time of this angiogram. He was also hemodynamically and electrically stable. He has significantly depressed kidney functions with eGFR ranging between 20-30. TR band over the right radial artery per protocol. Please follow the Poseidon hydration protocol. 35 ml of contrast media was used. Aggressive risk factor modification. PROCEDURE FINDINGS Findings ?? Diagnostic ??Dominance: Right Left Main Large sized vessel that gives rise to LAD, LCx and ramus branch. This vessel has minimal luminal irregularities. Left Anterior Descending Large sized vessel that wraps around the apex. It gives rise to a diagonal system. There is a 70% stenosis in the mid LAD. The diagonal branch originates from this diseased segment and has 80-90% stenosis in the proximal part of the vessel. Ramus Intermedius Medium sized vessel that has 70-80% stenosis in the mid section of the vessel. Left Circumflex Medium sized vessel that becomes small in the AV groove. It gives rise to a medium sized OM branch and small to medium PL branch. The OM branch has 90% focal stenosis. The PL branch has 70-80% stenosis distally. Right Coronary Artery Large sized vessel that gives rise to acute marginal, rPDA and PL branches. There is a proximal occlusion (culprit vessel) with limited antegrade filling of the remainder of the vessel. The distal part of the vessel is supplied by collaterals from the AV groove LCx. Pressures LV 174 mmHg/0 mmHg 18 mmHg AO 143 mmHg/53 mmHg 66 mmHg CLINICAL HISTORY This is a 74 year old male with history of hypertension, DM and gout presents with chest pain and was noted to have elevated troponin levels with reduced EF and hypokinesis of the anterior wall. A left heart catheterization with coronary angiogram were requested. PROCEDURE Access Site: Right Radial [x] ? Right Common Femoral [] ?Left Radial: ??[] ? Left Common Femoral ?[] Sheath Size: 6F slender Catheters used: JR4, JL3.5, Pigtail. Comments: None Hemostasis Method: TR band Complications: None Anesthesia: The procedure was performed under moderate conscious sedation by an independent trained observer (RN) and supervised by the under signed attending MD. See meds list. Sedation Time: 16 minutes 49 seconds Contrast Used: Med Administrations and Associated Flowsheet Values (last 24 hours) ?? Date/Time Action Medication Dose 08/10/24 1101 Given iohexol (OMNIPAQUE) 350 mg/mL injection 35 mL Estimated Blood Loss: 5 mL ?? Verbal Orders and Supervisory Attestation: As the attending physician, I verify I was present throughout the entire procedure and provided physician orders as documented in the specialty electronic documentation system. Furthermore I directly supervised all non physicians providers who assisted me during the procedure and I accept delegation of supervisory responsibility for all post procedure patient care activity related to this patient that I request from a [facility] PA/DISCOTHEQUE DANCER/fellow/staff member. Kervin Craft MD [facility] [place] 08/10/2024 ??11:18 AM Coronary Findings Diagnostic Dominance: Right Left Main: Large sized vessel that gives rise to LAD, LCx and ramus branch. This vessel has minimal luminal irregularities. Left Anterior Descending: Large sized vessel that wraps around the apex. It gives rise to a diagonal system. There is a 70% stenosis in the mid LAD. The diagonal branch originates from this diseased segment and has 80-90% stenosis in the proximal part of the vessel. Ramus Intermedius: Medium sized vessel that has 70-80% stenosis in the mid section of the vessel. Left Circumflex: Medium sized vessel that becomes small in the AV groove. It gives rise to a medium sized OM branch and small to medium PL branch. The OM branch has 90% focal stenosis. The PL branch has 70-80% stenosis distally. Right Coronary Artery: Large sized vessel that gives rise to acute marginal, rPDA and PL branches. There is a proximal occlusion (culprit vessel) with limited antegrade filling of the remainder of the vessel. The distal part of the vessel is supplied by collaterals from the AV groove LCx. Intervention No interventions have been documented. Cardiac Protocol CAD Kervin Craft MD CV CARDIAC CATH ORDERAB LES Final Result * (ABNORMAL) proBNP, N-terminal (08/10/2024 6:26 AM EDT) Only the most recent of2 resultswithin the time period is included. proBNP, N-terminal 11,667(H) <450 pg/mL 08/10/2024 10:16 AM EDT [facility] 08/10/2024 6:26 AM EDT 08/10/2024 6:48 AM EDT Jennifer Angel DISCOTHEQUE DANCER LAB BLOOD ORDERABLES F inal Result [address] [address], [address] [address] * US Renal (08/09/2024 4:07 AM EDT) Anatomical Region Laterality Modality Abdomen Ultrasound 08/09/2024 3:06 AM EDT Impressions 08/10/2024 6:14 PM EDT Incomplete characterization of multiple left renal cysts. These were previously characterized as simple on CT abdomen/pelvis October 13, 2023. Narrative 08/10/2024 6:14 PM EDT EXAMINATION: US RETROPERITONEUM LIMITED (RENAL ULTRASOUND) CLINICAL INFORMATION: Acute on chronic renal insufficiency. COMPARISON: CT abdomen/pelvis October 13, 2023 TECHNIQUE: Real-time imaging of the kidneys and bladder. FINDINGS: Horseshoe kidney. RIGHT KIDNEY MOIETY: No hydronephrosis. No renal calculi or focal parenchymal lesions. The kidney measures 10.1 x 5.3 x 5.2 cm (sag x AP x TRV). LEFT KIDNEY ??MOIETY: Echogenic. No hydronephrosis. No renal calculi. Multiple cysts are present including the largest measuring 3.9 x 3.5 x 3.0 cm. Complete characterization is limited due to technical limitations. The kidney measures 16.0 x 5.3 x 6.8 cm (sag x AP x TRV). BLADDER: Unremarkable. Procedure Note Gualberto Ludwig MD - 08/10/2024 EXAMINATION: US RETROPERITONEUM LIMITED (RENAL ULTRASOUND) CLINICAL INFORMATION: Acute on chronic renal insufficiency. COMPARISON: CT abdomen/pelvis October 13, 2023 TECHNIQUE: Real-time imaging of the kidneys and bladder. FINDINGS: Horseshoe kidney. RIGHT KIDNEY MOIETY: No hydronephrosis. No renal calculi or focal parenchymal lesions. The kidney measures 10.1 x 5.3 x 5.2 cm (sag x AP x TRV). LEFT KIDNEY MOIETY: Echogenic. No hydronephrosis. No renal calculi. Multiple cysts are present including the largest measuring 3.9 x 3.5 x 3.0 cm. Complete characterization is limited due to technical limitations. The kidney measures 16.0 x 5.3 x 6.8 cm (sag x AP x TRV). BLADDER: Unremarkable. IMPRESSION: Incomplete characterization of multiple left renal cysts. These were previously characterized as simple on CT abdomen/pelvis October 13, 2023. Jennifer Angel DISCOTHEQUE DANCER IMG US ORDERABLES Traci l Result * (ABNORMAL) High Sensitivity Troponin T (08/08/2024 4:21 AM EST) Only the most recent of5 resultswithin the time period is included. High Sensitivity Troponin T 991(HH) <23 ng/L 08/08/2024 5:19 AM EST [facility] Comment:Recurring Critical R esult. Previously phoned. Delta (Change) 22(H) <3 08/08/2024 5:19 AM EST [facility] Comment:Decreased 08/08/2024 4:21 AM EST 08/08/2024 4:50 AM EST Jessica Valentin DISCOTHEQUE DANCER LAB BLOOD ORDERABLES Final Res ult [address] [address], [address] [address] * XR Knee 1 or 2 views-Bilateral (08/07/2024 2:45 PM EST) Anatomical Region Laterality Modality Knee Bilateral Computed Radiogr aphy 08/07/2024 2:03 PM EST Impressions 08/07/2024 7:31 PM EST 1. ??No acute fracture or dislocation. 2. 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 Narrative 08/07/2024 7:31 PM EST EXAMINATION: XR KNEE, RIGHT XR KNEE, LEFT CLINICAL INFORMATION: tenderness and swelling COMPARISON: None available. ?? TECHNIQUE: Four views of each knee. FINDINGS: RIGHT KNEE: No acute fracture or dislocation. Tricompartmental moderate osteoarthritis with joint space narrowing and marginal osteophyte, most marked in the medial compartment. Small knee joint effusion. Vascular calcifications. ?? LEFT KNEE: No acute fractures patient. Moderate tricompartmental osteoarthritis, most marked in the medial compartment joint space narrowing and marginal osteophytes. Vascular calcifications. Trace knee joint effusion. ?? Procedure Note Erick Castillo MD - 08/07/2024 EXAMINATION: XR KNEE, RIGHT XR KNEE, LEFT CLINICAL INFORMATION: tenderness and swelling COMPARISON: None available. TECHNIQUE: Four views of each knee. FINDINGS: RIGHT KNEE: No acute fracture or dislocation. Tricompartmental moderate osteoarthritis with joint space narrowing and marginal osteophyte, most marked in the medial compartment. Small knee joint effusion. Vascular calcifications. LEFT KNEE: No acute fractures patient. Moderate tricompartmental osteoarthritis, most marked in the medial compartment joint space narrowing and marginal osteophytes. Vascular calcifications. Trace knee joint effusion. IMPRESSION: 1. No acute fracture or dislocation. 2. 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 Jermaine Remy PA-C IMG DIAGNOSTIC IMAGING ORDERABLE S Final Result * Creatine Kinase MB Fraction (08/07/2024 1:46 PM EST) Only the most recent of2 resultswithin the time period is included. CKMB 6.3 0 - 6.4 ng/mL 08/07/2024 3:36 PM EST [facility] Relative Index 2.9 0 - 3.4 % 08/07/2024 3:36 PM EST [facility] 08/07/2024 1:46 PM EST 08/07/2024 2:13 PM EST Comment:Plasma/Serum~Blood Jermaine BRANCH-Travis LAB BLOOD ORDERABLES Final Resul t Performing Organization Address [facility] [place] [place] [address], [address] [address] * (ABNORMAL) Creatine Kinase, Reflex to CKMB (08/07/2024 1:46 PM EST) Only the most recent of2 resultswithin the time period is included. Creatine Kinase (CK) 214(H) 24 - 204 U/L 08/07/2024 2:47 PM EST [facility] Blood Blood specimen / Unknown 08/07/2024 1:46 PM EST 08/07/2024 2:13 PM EST Comment:Plasma/Serum~Blood Jermaine BRANCH-Travis LAB BLOOD ORDERABLES Final Resul t Performing Organization Address [facility] [place] [place] [address], [address] [address] * (ABNORMAL) Osmolality (08/06/2024 4:32 PM EST) Osmolality, Serum/Plasma 304(H) 275 - 295 mOsm/Kg 08/06/2024 5:37 PM EST [facility] Blood Blood specimen / Unknown 08/06/2024 4:32 PM EST 08/06/2024 5:03 PM EST Jermaineenmanuel BRANCH-C LAB BLOOD ORDERABLES Final Resul t Performing Organization Address [facility] Co de Phone Number [address] [address], [address] [address] * (ABNORMAL) Comprehensive Metabolic Panel (Routine) (08/06/2024 4:32 PM EST) Glucose 226(H) 65 - 99 mg/dL 08/06/2024 5:41 PM [facility] Comment:Fasting: <100 mg/dL, Non-Fasting: <200 mg/dL (ADA 2005) Blood Urea Nitrogen (BUN) 49(H) 8 - 21 mg/dL 08/06/2024 5:41 PM [facility] Creatinine 3.0(H) 0.5 - 1.3 mg/dL 08/06/2024 5:41 PM [facility] eGFR 21(L) >59 08/06/2024 5:41 PM [facility] Comment:CKD-EPI (2020) in mL /min/1.73 sq meters. Sodium 136 136 - 145 mmol/L 08/06/2024 5:41 PM [facility] Potassium 4.3 3.4 - 5.3 mmol/L 08/06/2024 5:41 PM [facility] Chloride 98 98 - 107 mmol/L 08/06/2024 5:41 PM [facility] CO2 22 22 - 33 mmol/L 08/06/2024 5:41 PM [facility] Calcium 8.5(L) 8.7 - 10.5 mg/dL 08/06/2024 5:41 PM [facility] Alkaline Phosphatase 82 45 - 128 U/L 08/06/2024 5:41 PM [facility] Aspartate Aminotrans (AST) 100(H) 10 - 55 U/L 08/06/2024 5:41 PM [facility] Alanine Aminotrans (ALT) 22 10 - 55 U/L 08/06/2024 5:41 PM [facility] Bilirubin, Total 0.6 0.2 - 1.0 mg/dL 08/06/2024 5:41 PM [facility] Protein, Total 7.3 6.3 - 8.3 g/dL 08/06/2024 5:41 PM [facility] Albumin 3.5 3.4 - 4.8 g/dL 08/06/2024 5:41 PM [facility] BUN/Creatinine Ratio 16 10.0 - 25.0 Ratio 08/06/2024 5:41 PM [facility] Globulin 3.8 1.5 - 3.9 g/dL 08/06/2024 5:41 PM [facility] Albumin/Globulin Ratio 0.9(L) 1.0 - 3.0 Ratio 08/06/2024 5:41 PM [facility] Anion Gap 16 7 - 17 08/06/2024 5:41 PM [facility] Blood Blood specimen / Unknown 08/06/2024 4:32 PM EST 08/06/2024 5:03 PM EST us Jermaine Remy PA-C LAB BLOOD ORDERABLES Final Resul t Performing Organization Address [facility]/[place] [address], [place] [address] * Urea Nitrogen, Urine, Random (08/06/2024 3:00 PM EST) Urea Nitrogen, Random Urine 174 mg/dL 08/06/2024 6:21 PM [facility] Comment:Reference range not established for random specimen. Urine Urine specimen / Unknown 08/06/2024 3:00 PM EST 08/06/2024 5:39 PM EST Jermaine Remy PA-C URINE ORDERABLES Final Result Performing Organization Address [facility] [place] [address], [place] [address] * Electrolytes, Urine (08/06/2024 3:00 PM EST) Sodium, Urine Random 127 mmol/L 08/06/2024 6:12 PM [facility] Comment:Reference range not established for random specimen. Potassium, Urine (Random) 10 mmol/L 08/06/2024 6:12 PM [facility] Comment:Reference range not established for random specimen. Chloride, Urine, Random 109 mmol/L 08/06/2024 6:12 PM [facility] Comment:Reference range not established for random specimen. Urine Urine specimen / Unknown 08/06/2024 3:00 PM EST 08/06/2024 5:41 PM EST Jermaine Olguini PA-C URINE ORDERABLES Final Result Performing Organization Address [facility] Co de Phone Number [address] [address], [address] [address] * Sodium, Urine, Random (08/06/2024 3:00 PM EST) Sodium, Urine Random 128 mmol/L 08/06/2024 6:21 PM EST [facility] Comment:Reference range not established for random specimen. Urine Urine specimen / Unknown 08/06/2024 3:00 PM EST 08/06/2024 5:39 PM EST Jermaine Remy PA-C URINE ORDERABLES Final Result Performing Organization Address [facility] Co de Phone Number [address] [address], [address] [address] * Osmolality, Urine (08/06/2024 3:00 PM EST) Osmolality, Urine 335 50 - 1,200 mOsm/Kg 08/06/2024 5:59 PM EST [facility] Urine Urine specimen / Unknown 08/06/2024 3:00 PM EST 08/06/2024 5:39 PM EST Jermaine Olguini PA-C URINE ORDERABLES Final Result Performing Organization Address [facility] Co de Phone Number [address] [address], [address] [address] * ECHOCARDIOGRAM COMPREHENSIVE WITH CONTRAST (08/06/2024 11:46 AM EST) Heart Rate 70 bpm BP Systolic 136 mmHg BP Diastolic 82 mmHg Height 72.00 inches Weight 198.00 lbs BSA 2.12 m2 LV Diastolic Volume 119 mL LV Systolic Volume 81 mL IVS (F:0.6-0.9, M:0.6-1.0) 1.3 cm IVS Mean (F:0.6-0.9, M:0.6-1.0) 1.3 cm LVIDD (F:3.8-5.2, M:4.2-5.8) 4.4 cm LVIDD Mean (F:3.8-5.2, M:4.2-5.8) 4.4 cm LVIDS (F:2.2-3.5, M:2.5-4.0) 3.2 cm LVIDS (F:2.2-3.5, M:2.5-4.0) 3.2 cm LVOT diameter 2.2 cm LVOT diameter mean 2.2 cm LVOT mn grad mean 2.0 mmHg LVOT VTI MEAN 17.6 cm LVOT mn grad 2.0 mmHg LVOT VTI 17.6 cm LVOT peak aidan 0.9 m/s LVOT peak aidan mean 0.9 m/s PW (F:0.6-0.9, M:0.6-1.0) 1.3 cm PW Mean (F:0.6-0.9, M:0.6-1.0) 1.3 cm MV E' Lateral Velocity 8.59 cm/s MV E' Lateral Velocity Mean 8.59 cm/s MV E' Septal Velocity 3.08 cm/s MV E' Septal Velocity Mean 3.08 cm/s LA sup-inf (apical 2-ch view) 6.14 cm LA volume 48.2 mL RA area 16.0 cm2 RA 2D Volume 39.9 mL Sinuses of Valsalva 3.5 cm Sinuses of Valsalva Mean 3.5 cm Ascending aorta 3.7 cm Ascending aorta mean 3.7 cm Inferior Vena Cava Diameter 1.6 cm Inferior Vena Cava Diameter Mean 1.6 cm E wave decelartion time 209 ms E wave decelartion time mean 209 ms MV Peak A-Wave 72.2 cm/s MV Peak A-Wave Mean 72.2 cm/s MV Peak E-Wave 77.7 cm/s MV Peak E-Wave Mean 77.7 cm/s RV Free wall pk S' 12.6 cm/s RV Free wall pk S' Mean 12.6 cm/s Tapse 2.3 cm Tapse Mean 2.3 cm Hurt BP EF (55-75) 32 % LVOT stroke volume 67 mL SVI 31 mL/m2 Left Ventricular Cardiac Index 2.2 L/min/m2 Left Ventricular Cardiac Output 4.7 L/min LV Diastolic Volume Index (F:29-61, M:35-75) 56.1 mL/m2 LV Systolic Volume Index (F:8-24, M:11-31) 38.2 mL/m2 LV mass 215.1 g LV Mass Index (F:43-95, M:49-115) 101.4 g/m2 LV RWT 0.59 LA Volume Index (16-34) 22.7 mL/m2 E/A ratio 1.08 E/E' Lateral 9.0 E/E' Septal 25.2 E/E' Average 17.1 AV LVOT peak gradient 3.2 mmHg LA Volume Index 18.8 mL/m2 LVOT area 3.8 cm2 Sinuses of Valsalva Index 1.6 cm/m2 Ascending aorta Index 1.7 cm/m2 E/E' ratio 9.05 LVOT SI 31.52 mL/m2 Anatomical Region Laterality Modality Ultrasound Narrative 08/06/2024 12:46 PM EST ?Left ventricle was not well visualized. The left ventricle is normal in size. Left ventricular systolic function is moderately decreased with an estimated ejection fraction of 30-34%. ?Right ventricular systolic function is normal. ?There is no significant valve dysfunction. ?There is no previous study for comparison in our system. Technical Details Definity contrast was used during the study. Overall the study quality was fair. The study was technically difficult due to patient's body habitus. Left Ventricle Left ventricle was not well visualized. The left ventricle is normal in size. Concentric remodeling of the left ventricle is present. Left ventricular systolic function is moderately decreased with an estimated ejection fraction of 30-34%. Wall motion cannot be accurately assessed. Right Ventricle Right ventricular systolic function is normal. Left Atrium Left atrial size is normal. Right Atrium Right atrial size is normal. Based on IVC diameter and collapse, right atrial pressure is estimated to be normal (3 mmHg). Mitral Valve The mitral valve is structurally normal. There is trace mitral regurgitation. Tricuspid Valve The tricuspid valve is structurally normal. There is no tricuspid regurgitation. The absence of sufficient tricuspid regurgitation precludes estimation of right ventricular systolic pressure. Aortic Valve The aortic valve is tricuspid. There is no aortic regurgitation or stenosis. Pulmonic Valve The pulmonic valve is structurally normal. There is trace pulmonic regurgitation. Ascending Aorta The aortic root and ascending aorta are normal in dimension. Pericardium There is no pericardial effusion. Prior Study There is no previous study for comparison in our system. Jessica Valentin DISCOTHEQUE DANCER CV ECHO ORDERABLES Final Resul t * (ABNORMAL) Hemoglobin A1c with Estimated Average Glucose (08/06/2024 6:41 AM EST) Only the most recent of2 resultswithin the time period is included. Hemoglobin A1C 6.7(H) <5.7 % 08/06/2024 12:44 PM EST [facility] Comment: A1c% ? Interpretation 5.7 - 6.0 ?Increase risk of diabetes 6.1 - 6.4 ?Higher risk of diabetes > or = 6.5 ?? Consistent with diabetes Diabetes Care, 33(Supp 1):S1-S61, 2010 Estimated Average Glucose 146 mg/dL 08/06/2024 12:44 PM EST [facility] Blood Blood specimen / Unknown 08/06/2024 6:41 AM EST 08/06/2024 7:37 AM EST Jessicamali Valentin APRN LAB BLOOD ORDERABLES Final Res ult Performing Organization Address City/[facility]/ZIP Co de Phone Number [address] [address], [address] [address] * (ABNORMAL) URIC ACID (08/06/2024 6:41 AM EST) Uric Acid 9.7(H) 4.0 - 8.0 mg/dL 08/06/2024 11:55 AM EST [facility] 08/06/2024 6:41 AM EST 08/06/2024 7:37 AM EST Jessicamali Valentin DISCOTHEQUE DANCER LAB BLOOD ORDERABLES Final Res ult [facility] [address] [place] [address], [facility] [address] [place] [address] * LIPID PANEL (08/06/2024 6:41 AM EST) Cholesterol, Total 106 <200 mg/dL 2024 8:26 AM [facility] Triglycerides 61 <150 mg/dL 08/06/2024 8:26 AM [facility] Cholesterol, HDL 53 >39 mg/dL 08/07/19 8:26 AM [facility] Estimated LDL 41 <130 mg/dL 08/06/2024 8:26 AM [facility] Comment: NCEP Guidelines: ?< 100 mg/dL ??Optimal 100 - 129 mg/dL ??Near Optimal/Above Optimal 130 - 159 mg/dL ??Borderline High 160 - 189 mg/dL ??High ??>/= 190 mg/dL ??Very High Cholesterol/HDL Ratio 2.0 0.0 - 5.0 Ratio 08/06/2024 8:26 AM [facility] Comment: Relative Risk ? Ratio - Male ? Ratio - Female ?0.5 ?3.4 ?3.3 ?1.0 ?5.0 ?4.4 ?2.0 ?9.6 ?7.1 ?3.0 ? 23.4 ? 11.0 08/06/2024 6:41 AM EST 08/06/2024 7:37 AM EST us Jessica Valentin DISCOTHEQUE DANCER LAB BLOOD ORDERABLES Final Res ult [address] [address], [address] [address] * (ABNORMAL) Urinalysis with Reflex to Microscopic (08/06/2024 1:07 AM EST) Color Yellow 08/06/2024 1:48 AM [facility] Clarity Slightly cloudy 08/06/2024 1:48 AM [facility] Specific [place] 1.009 1.003 - 1.030 08/06/2024 1:48 AM [facility] pH 5.0 5.0 - 8.0 08/06/2024 1:48 AM [facility] Leukocyte Esterase Trace(A) Negative 08/06/2024 1:48 AM [facility] Nitrite Negative Negative 08/06/2024 1:48 AM [facility] Protein Moderate (100 mg/dL)(A) Negative 08/06/2024 1:48 AM [facility] Glucose 0 0 - 99 mg/dL 08/06/2024 1:48 AM [facility] Ketones Negative Negative 08/06/2024 1:48 AM [facility] Blood Large(A) Negative 08/06/2024 1:48 AM [facility] Bilirubin Negative Negative 08/06/2024 1:48 AM [facility] WBC 3 0 - 4 per hpf 08/06/2024 1:48 AM [facility] RBC >25(H) 0 - 4 per hpf 08/06/2024 1:48 AM [facility] Hyaline Casts 5(H) 0 - 4 PER LPF 08/06/2024 1:48 AM [facility] Urine Voided urine specimen / Unknown 08/06/2024 1:07 AM EST 08/06/2024 1:12 AM EST us Jessica Valentin APRN URINE ORDERABLES Final Result [address] [address], [address] [address] * (ABNORMAL) Complete Blood Count, with Differential (08/05/2024 10:30 PM EST) Pathologist [facility] White Blood Cell Count 11.4(H) 4.0 - 11.0 Thou/uL 08/05/2024 11:27 PM [facility] Platelet Count 386 150 - 450 Thou/uL 08/05/2024 11:27 PM [facility] Hemoglobin 9.7(L) 13.0 - 17.7 g/dL 08/05/2024 11:27 PM [facility] Hematocrit 29.6(L) 39.0 - 54.0 % 08/05/2024 11:27 PM [facility] Red Blood Cell Count 3.30(L) 4.50 - 6.20 Mil/uL 08/05/2024 11:27 PM [facility] MCV 90 80 - 100 fL 08/05/2024 11:27 PM [facility] MCH 29.4 27.0 - 31.0 pg 08/05/2024 11:27 PM [facility] MCHC 32.8 30.0 - 36.0 g/dL 08/05/2024 11:27 PM [facility] RDW 13.1 11.5 - 14.5 % 08/05/2024 11:27 PM [facility] MPV 10.3 7.5 - 12.5 fL 08/05/2024 11:27 PM [facility] Neutrophils Auto 81.4 % 08/06/19 11:27 PM [facility] Immature Granulocytes 0.7 % 08/05/2024 11:27 PM [facility] Lymphocytes Auto 8.3 % 08/06/19 11:27 PM [facility] Monocytes Auto 8.4 % 08/05/2024 11:27 PM [facility] Eosinophils Auto 0.8 % 08/06/19 11:27 PM [facility] Basophils Auto 0.4 % 08/05/2024 11:27 PM [facility] Abs Neutrophils Auto 9.26(H) 2.00 - 7.50 Thou/uL 08/05/2024 11:27 PM [facility] Abs Immature Granulocytes 0.08 0.00 - 0.10 Thou/uL 08/05/2024 11:27 PM [facility] Abs Lymphocytes Auto 0.94(L) 1.50 - 4.50 Thou/uL 08/05/2024 11:27 PM [facility] Abs Monocytes Auto 0.95 0.20 - 1.50 Thou/uL 08/05/2024 11:27 PM [facility] Abs Eosinophils Auto 0.09 0.00 - 0.70 Thou/uL 08/05/2024 11:27 PM [facility] Abs Basophils Auto 0.05 0.00 - 0.20 Thou/uL 08/05/2024 11:27 PM [facility] Blood Blood specimen / Unknown 08/05/2024 10:30 PM EST 08/05/2024 11:04 PM EST Jessica Valentin DISCOTHEQUE DANCER LAB BLOOD [place] [address], [address] [address] * (ABNORMAL) Partial Thromboplastin Time (PTT) (08/05/2024 10:30 PM EST) Anticoagulant IV HEPARIN, UNFRACTIONATED 08/05/2024 9:44 PM [facility] Partial Thromboplastin Time (PTT) 186(HH) 25 - 36 seconds 08/05/2024 11:38 PM [facility] Blood Blood specimen / Unknown 08/05/2024 10:30 PM EST 08/05/2024 11:04 PM EST Jessica Valentin DISCOTHEQUE DANCER LAB BLOOD [place] [address], [address] [address] * (ABNORMAL) Protime-INR (08/05/2024 10:30 PM EST) Anticoagulant IV HEPARIN, UNFRACTIONATED 08/05/2024 9:44 PM [facility] Prothrombin Time (PT) 13.8(H) 10.0 - 13.5 seconds 08/05/2024 11:38 PM [facility] INR 1.2 08/05/2024 11:38 PM [facility] Comment:INR Therapeutic Rang es: Standard dose anticoagulant 2.0 to 3.0, High dose anticoagulant 2.5-3.5. Blood Blood specimen / Unknown 08/05/2024 10:30 PM EST 08/05/2024 11:04 PM EST Jessica Dygon DISCOTHEQUE DANCER LAB BLOOD ORDERABLES Final Res ult Performing Organization Address City/[facility]/[place] [address], [place] [address] * TSH (Routine) (08/05/2024 10:30 PM EST) TSH, Highly Sensitive 1.91 0.27 - 4.20 mIU/L 08/05/2024 11:54 PM [facility] Blood Blood specimen / Unknown 08/05/2024 10:30 PM EST 08/05/2024 11:04 PM EST Jessica Dygon DISCOTHEQUE DANCER LAB BLOOD ORDERABLES Final Res ult Performing Organization Address [facility] [place] [address], [place] [address] from Last 3 Months Insurance [facility] OUT OF NETWORK [facility] & B [facility] MEDIC[facility] OUT OF NETWORK [facility] Advance Directives Documents on File Type Date Recorded Patient Appeals Rn Expl anation Advance Directive-Scan 08/18/[address] [place] [address] HEALTHCARE PROXY 08/18/2024 * Full Code (Latest Code Status on File) Date Activated Date Inactivated Comments 08/13/2024 3:17 PM * Full Code Date Activated Date Inactivated Comments 08/05/2024 9:41 PM 08/13/2024 3:17 PM Healthcare Agents on File Name Relationship Healthcare Agent Relationship Communication Phil Delio Healthcare training representative 1. [facility] Care Appeals Rn Care Teams Admissions Dean Relationship Specialty Start Date End Date Uma Chung MD [address] [place] [address] PCP - General Internal Medicine 08/06/24
--- OUTSIDE RECORDS SUMMARY | 2024-10-08 11:30 | XMS_ITS | Encounter Summary ---
Author Organization [employer] Address [address] [facility] 7[address] [place] [address] Care Team Providers Care District Extension Service Agent Name Role Phone Uma Chung MD Primary Care Provide r Reason for Visit * Reason Comments Med Refill Encounter Details Date Type Department Care Team (Late Contact Info) Description 03/01/2023 Refill [facility] [address] [place] [address] Uma Chung MD [address] [place] [address] Other chronic pain Social History Tobacco Use [...] Department Care Team (Late Contact Info) Description 11/12/2024 1:00 PM EDT Office Visit [facility] [address] [place] [address] Atiya Samuel, OD [address] [place] [address] documented as of this encounter Visit Diagnoses Diagnosis Other chronic pain documented in this encounter Additional Health Concerns Assessment Noted Time PHQ-9 Depression Total Score: 0 12/13/19 23 10:21 AM EDT documented as of this encounter Care Teams District Extension Service Agent Relationship Specialty Start Date End Date Uma Chung MD [address] [place] [address] PCP - General Family Medicine 02/21/18 Altranais 09/15/24 documented as of this encounter
--- OUTSIDE RECORDS SUMMARY | 2024-10-08 11:30 | XMS_ITS | Encounter Summary ---
Author Organization [employer] Address [address] [facility] 7t [place] [address] Care Team Providers Care Heater Planer Operator Name Role Phone Uma Chung MD Primary Care Provide r Encounter Details Date Type Department Care Team ([facility] st Contact Info) Description 10/16/2023 Telephone [facility] [address] [place], [place] [phone] Uam Chung MD [address] [place], [place] [phone] Social History Tobacco Use Types Packs/Day Years [...] Description 11/12/2024 1:00 PM EDT Office Visit [facility] [address] [place], [place] [phone] Atiya Samuel, OD [address] [place] [address] documented as of this encounter Visit Diagnoses Not on filedocumented in this encounter Additional Health Concerns Assessment Noted Time PHQ-9 Depression Total Score: 0 12/13/19 23 10:21 AM EDT documented as of this encounter Care Teams Heater Planer Operator Relationship Specialty Start Date End Date Uma Chung MD [address] [place], [place] [phone] PCP - General Family Medicine 02/21/18 Altranais 09/15/24 documented as of this encounter
--- OUTSIDE RECORDS SUMMARY | 2024-10-08 11:30 | XMS_ITS | Encounter Summary ---
Author Organization [employer] Address [address] [facility] 7t [place] [address] Care Team Providers Care Bundle Clerk Name Role Phone Uma Chung MD Primary Care Provide r Encounter Details Date Type Department Care Team ([facility] st Contact Info) Description 07/12/2023 Telephone [facility] [address] [place], [place] [phone] Uma Chung MD [address] [place] [address] Social History Tobacco Use Types Packs/Day Years [...] Description 11/12/2024 1:00 PM EDT Office Visit [facility] OPTOM[facility]RY [address] [place], [place] [phone] Atiya Samuel, OD [address] [place] [address] documented as of this encounter Visit Diagnoses Not on filedocumented in this encounter Additional Health Concerns Assessment Noted Time PHQ-9 Depression Total Score: 0 12/13/19 23 10:21 AM EDT documented as of this encounter Care Teams Bundle Clerk Relationship Specialty Start Date End Date Uma Chung MD [address] [place], [place] [phone] PCP - General Family Medicine 02/21/18 Altranais 09/15/24 documented as of this encounter
--- OUTSIDE RECORDS SUMMARY | 2024-10-08 11:30 | XMS_ITS | Encounter Summary ---
Author Organization [employer] Address [address] [facility] 7t [place] [address] Care Team Providers Care Electronic Equipment Maint Tech Name Role Phone Uma Chung MD Primary Care Provide r Reason for Visit * Reason Onset Date Comments Med Refill 10/08/2024 Encounter Details Date Type Department Care Team ([facility] st Contact Info) Description 10/08/2024 Telephone [facility] [address] [place] [address] Uma Chung MD [address] [place], [place] [phone] Med Refill Social History Tobacco Use Types [...] * Telephone Encounter - Tolu Lopez - 10/08/2024 10:57 AM EDT TC from pt requesting medication refill. Medications needing refill : oxyCODONE-acetaminophen (Percocet) 5-325 MG tablet To be sent to: [facility] [place], [place] - [address] [place] [address] documented in this encounter Plan of Treatment Upcoming Encounters Date Type Department Care Team (Late st Contact Info) Description 11/12/2024 1:00 PM EDT Office Visit [facility] OPTOM[facility]RY [address] [place] [address] Atiya Samuel, OD [address] [place] [address] documented as of this encounter Visit Diagnoses Not on filedocumented in this encounter Additional Health Concerns Assessment Noted Time PHQ-9 Depression Total Score: 4 05/06/20 24 9:16 AM EST documented as of this encounter Care Teams Electronic Equipment Maint Tech Relationship Specialty Start Date End Date Uma Chung MD [address] [place] [address] PCP - General Family Medicine 02/21/18 Altranais 09/15/24 documented as of this encounter
--- OUTSIDE RECORDS SUMMARY | 2024-10-08 11:30 | XMS_ITS | Encounter Summary ---
Author Organization [employer] Address [address] [facility] [address] 7[address] [place] [address] Care Team Providers Care Clerk Of Court Name Role Phone Uma Chung MD Primary Care Provide r Encounter Details Date Type Department Care Team (Late st Contact Info) Description 03/21/2023 Orders Only [facility] [address] [place], [place] [phone] Lay Grimaldo LPN Social History Tobacco Use [...] Description 11/12/2024 1:00 PM EDT Office Visit [facility] OPTOMETRY [address] [place] [address] Jimmie, Atiya, OD [address] [place], [place] [phone] documented as of this encounter Visit Diagnoses Not on filedocumented in this encounter Additional Health Concerns Assessment Noted Time PHQ-9 Depression Total Score: 0 12/13/19 23 10:21 AM EDT documented as of this encounter Care Teams Clerk Of Court Relationship Specialty Start Date End Date Uma Chung MD [address] [place] [address] PCP - General Family Medicine 02/21/18 Altranzenobias 09/15/24 documented as of this encounter
--- OUTSIDE RECORDS SUMMARY | 2024-10-08 11:30 | XMS_ITS | Encounter Summary ---
Author Organization [employer] Address 75 [facility] 7t [place] [address] Care Team Providers Care Certified Physician Assistant Name Role Phone Uma Chung MD Primary Care Provide r Reason for Visit * Reason Onset Date Comments Chart Prep 10/07/2024 Encounter Details Date Type Department Care Team ([facility] Contact Info) Description 10/07/2024 Telephone [facility] [address] [place] [address] Uma Chung MD [address] [place], [place] [phone] Chart Prep Social History Tobacco Use Types Packs/Day Years [...] encounter Miscellaneous Notes * Telephone Encounter - Amber Chung [place] - 10/07/2024 8:18 AM EDT Chart Prep Labs: done Images: done Referrals: appointment pending Vaccines due: Tdap, RSV, and Zoster Screenings: eye exam, foot exam, and Hepatitis C Screening Overdue care gaps: Glucose, SBIRT, and ANTONY-7 documented in this encounter Plan of Treatment Upcoming Encounters Date Type Department Care Team (Late st Contact Info) Description 11/12/2024 1:00 PM EDT Office Visit [facility] OPT[facility] [address] [place] [address] Atiya Samuel, OD [address] [place] [address] documented as of this encounter Visit Diagnoses Not on filedocumented in this encounter Additional Health Concerns Assessment Noted Time PHQ-9 Depression Total Score: 4 05/06/20 24 9:16 AM EST documented as of this encounter Care Teams Certified Physician Assistant Relationship Specialty Start Date End Date Uma Chung MD [address] [place] [address] PCP - General Family Medicine 02/21/18 Altranais 09/15/24 documented as of this encounter
--- OUTSIDE RECORDS SUMMARY | 2024-10-08 11:30 | XMS_ITS | Encounter Summary ---
Author Organization [employer] Address [address] [facility] [address] 7[address] [place] [address] Care Team Providers Care Bilingual Recruiter Name Role Phone Uma Chung MD Primary Care Provide r Encounter Details Date Type Department Care Team (Late st Contact Info) Description 07/16/2024 Orders Only [facility] [address] [place], [place] [phone] Uma Chung MD [address] [place] [address] Social History Tobacco Use Types Packs/Day Years [...] Description 11/12/2024 1:00 PM EDT Office Visit [facility] [address] [place] [address] Atiya Samuel, OD [address] [place] [address] documented as of this encounter Visit Diagnoses Not on filedocumented in this encounter Additional Health Concerns Assessment Noted Time PHQ-9 Depression Total Score: 4 05/06/20 24 9:16 AM EST documented as of this encounter Care Teams Bilingual Recruiter Relationship Specialty Start Date End Date Uma Chung MD [address] [place] [address] PCP - General Family Medicine 02/21/18 Altranais 09/15/24 documented as of this encounter
--- OUTSIDE RECORDS SUMMARY | 2024-10-08 11:30 | XMS_ITS | Encounter Summary ---
Author Organization [employer] Address [address] [place] [address] [address] [place] [address] Care Team Providers Care Assistant Produce Manager Name Role Phone Uma Chnug MD Primary Care Provide r Encounter Details Date Type Department Care Team (Late st Contact Info) Description 02/08/2023 Orders Only [facility] [address] [place], [place] [phone] Provider, MD Nathan Social History Tobacco Use [...] Description 11/12/2024 1:00 PM EDT Office Visit [facility] OPTOMETRY [address] [place], [place] [phone] Atiya Samuel, OD [address] [place] [address] documented as of this encounter Procedures Procedure Name Priority Date/Time Associated Diagnosis Comments HM COLONOSCOPY Routine 08/07/2011 documented in this encounter Results * Hm Colonoscopy (08/07/2011) us Historical Provider HEALTH MAINTENANCE Final Result documented in this encounter Visit Diagnoses Not on filedocumented in this encounter Additional Health Concerns Assessment Noted Time PHQ-9 Depression Total Score: 0 12/13/19 23 10:21 AM EDT documented as of this encounter Care Teams Assistant Produce Manager Relationship Specialty Start Date End Date Uma Chung MD [address] [place] [address] PCP - General Family Medicine 02/21/18 Altranais 09/15/24 documented as of this encounter
--- OUTSIDE RECORDS SUMMARY | 2024-10-08 11:30 | XMS_ITS | Encounter Summary ---
Author Organization [employer] Address [address] [facility] 7t [place] [address] Care Team Providers Care Air Hoist Operator Name Role Phone Uma Chung MD Primary Care Provide r Reason for Visit * Reason Comments Med Refill Encounter Details Date Type Department Care Team ([facility] st Contact Info) Description 07/22/2024 Refill [facility] [address] [place], [place] [phone] Uma Chung MD [address] [place], [place] [phone] Erectile dysfunction, unspecified erectile dysfunction type Social [...] Visit [facility] OPTOMETRY [address] [place] [address] Jimmie, Atiya, OD [address] [place] [address] documented as of this encounter Visit Diagnoses Diagnosis Erectile dysfunction, unspecified erectile dysfunction type documented in this encounter Additional Health Concerns Assessment Noted Time PHQ-9 Depression Total Score: 4 05/06/20 24 9:16 AM EST documented as of this encounter Care Teams Air Hoist Operator Relationship Specialty Start Date End Date Uma Chung MD [address] [place] [address] PCP - General Family Medicine 02/21/18 Altranais 09/15/24 documented as of this encounter
--- OUTSIDE RECORDS SUMMARY | 2024-10-08 11:30 | XMS_ITS | Encounter Summary ---
Author Organization [employer] Address [address] [place] [address] Care Team Providers Care Beer Cooler Name Role Phone Uma Chung MD Primary Care Provide r Reason for Visit * Reason Onset Date Comments Appointment Request 10/25/2022 Encounter Details Date Type Department [facility] Description 10/25/2022 Telephone [facility] [address] [place] [address] Uma Chung MD [address] [place] [address] Appointment Request Social History Tobacco Use Types [...] requesting to r/s appt for 10/26/2022 of POSITION CLASSIFICATION MANAGER Please contact pt son at [phone] documented in this encounter Plan of Treatment Upcoming Encounters Date Type Department Care Team (Late st Contact Info) Description 11/12/2024 1:00 PM EDT Office Visit [facility] [address] [place] [address] Atiya Samuel, OD [address] [place] [address] documented as of this encounter Visit Diagnoses Not on filedocumented in this encounter Care Teams Beer Cooler Relationship Specialty Start Date End Date Uma Chung MD [address] [place], [place] [id number] PCP - General Family Medicine 02/21/18 Altrana[facility] 09/15/24 documented as of this encounter
--- OUTSIDE RECORDS SUMMARY | 2024-10-08 11:30 | XMS_ITS | Clinical Summary ---
Author Organization [employer] Address [address] [place] [address] Care Team Providers Care Back End Web Developer Name Role Phone Uma Chung MD Primary Care Provide r Allergies No known active allergies Medications Blood Glucose Monitoring Suppl (FreeStyle [place] Lite) w/Device kit Use to check BS 3x a day 1 kit 04/27/20 Active FREESTYLE LITE test strip Use to check BS 3x daily 100 each 12 04/27/20 24 2024 Active TRUEplus Lancets 33G misc Use to check BS 3x daily. 100 each 11 04/27/20 24 Active Blood Pressure kitIndications:Es sential hypertension 1 each Once per day. 1 kit 05/06/20 24 Active cromolyn (Opticrom) 4 % ophthalmic solution PLACE 1 DROP IN THE AFFECTED EYE(S) ONCE DAILY NEEED 30 mL 3 06/25/19 25 Active aspirin 81 MG chewable tabletIndications :H/O non-ST elevation myocardial infarction (NSTEMI) Chew 1 tablet (81 mg) Once per day. 30 tablet 1 09/16/19 25 Active atorvastatin (Lipitor) 80 MG tabletIndications :Hyperlipidemia, unspecified hyperlipidemia type Take 1 tablet (80 mg) by mouth Once per day. 30 tablet 1 09/16/19 25 Active clopidogrel (Plavix) 75 MG tabletIndications :H/O non-ST elevation myocardial infarction (NSTEMI) Take 1 tablet (75 mg) by mouth Once per day. 30 tablet 1 09/16/19 25 Active lidocaine (Lidoderm) 5 % patchIndications: Primary osteoarthritis of both knees Apply 2 patches topically Once per day. Remove & discard patch within 12 hours. 60 patch 1 09/16/19 25 Active metoprolol tartrate (Lopressor) 25 MG tabletIndications :Essential hypertension Take 0.5 tablets (12.5 mg) by mouth 2 times daily. 30 tablet 1 09/16/19 25 Active linaGLIPtin (Tradjenta) 5 MG tabletIndications :Type 2 diabetes mellitus without complication, without long-term current use of insulin (CMS/HCC) Take 1 tablet (5 mg) by mouth Once per day. 30 tablet 1 09/16/19 25 Active polyethylene glycol, PEG, 3350 (MiraLax) 17 GM/SCOOP powderIndications :Constipation, unspecified constipation type Take 17 g by mouth Once per day. 578 g 09/16/19 25 Active melatonin 10 MG tabletIndications :Insomnia, unspecified type Take 1 tablet (10 mg) by mouth at bedtime. 30 tablet 1 09/16/19 25 Active tamsulosin (Flomax) 0.4 MG 24 hr capsuleIndication s:Horseshoe kidney Take 2 capsules (0.8 mg) by mouth Once per day. 60 capsule 1 09/16/19 25 Active thiamine (Vitamin B-1) 100 MG tabletIndications :H/O non-ST elevation myocardial infarction (NSTEMI) Take 1 tablet (100 mg) by mouth Once per day. 30 tablet 1 09/16/19 25 Active pantoprazole (Protonix) 40 MG EC tabletIndications :Gastroesophageal reflux disease without esophagitis Take 1 tablet (40 mg) by mouth before breakfast. Do not crush, chew, or split. 30 tablet 1 09/16/19 25 Active senna (Senokot) 8.6 MG tabletIndications :Constipation, unspecified constipation type Take 1 tablet (8.6 mg) by mouth at bedtime. 60 tablet 1 09/16/19 25 Active Acetaminophen Extra Strength 500 MG tabletIndications :Other chronic pain TAKE 1 TABLET (500MG) BY ORAL ROUTE EVERY 6 HOURS NEEDED 30 tablet 07/09/192024 Discontinued(M ed list cleanup (will not trigger notification to Pharmacy)) amitriptyline (Elavil) 25 MG tabletIndications :Other chronic pain TOME NANETTE TABLETA TODOS LOS GALLAGHER AL ACOSTARSE 30 tablet 1 02/06/202024 Discontinued(M ed list cleanup (will not trigger notification to Pharmacy)) omeprazole (PriLOSEC) [address] capsule BECKY FITZPATRICK C PSULA TODOS LOS D 2024 Discontinued(M ed list cleanup (will not trigger notification to Pharmacy)) phenazopyridine (Pyridium) 100 MG tablet BECKY NANETTE TABLETA POR V A ORAL LUIS VECES AL D A CUANDO SEA NECESARIO PARA EL DOLOR 01/22/20 24 2024 Discontinued(M ed list cleanup (will not trigger notification to Pharmacy)) Multiple Vitamin (Daily-Maria Elena Multivitamin) tablet TAKE 1 TABLET BY MOUTH EVERY DAY 90 tablet 3 03/25/20 24 2024 Discontinued(M ed list cleanup (will not trigger notification to Pharmacy)) famotidine (Pepcid) 20 MG tabletIndications :Heartburn TAKE 1 TABLET BY MOUTH TWICE A DAY 180 tablet 3 03/25/20 24 2024 Discontinued(M ed list cleanup (will not trigger notification to Pharmacy)) amLODIPine (Norvasc) 5 MG tablet Take 1 tablet (5 mg) by mouth Once per day. 30 tablet 11 04/09/20 24 2024 Discontinued(M ed list cleanup (will not trigger notification to Pharmacy)) hydroCHLOROthiazi de 12.5 MG tabletIndications :Hypertension, unspecified type TAKE 1 TABLET BY MOUTH EVERY MORNING 90 tablet 1 04/29/20 24 2024 Discontinued(M ed list cleanup (will not trigger notification to Pharmacy)) metoprolol succinate XL (Toprol-XL) 100 MG 24 hr tablet TAKE 1 TABLET BY MOUTH EVERY DAY 90 tablet 1 05/06/20 24 2024 Discontinued(M ed list cleanup (will not trigger notification to Pharmacy)) simvastatin (Zocor) 10 MG tabletIndications :Hyperlipidemia, unspecified hyperlipidemia type Take 1 tablet (10 mg) by mouth at bedtime. 30 tablet 11 05/22/20 24 2024 Discontinued(M ed list cleanup (will not trigger notification to Pharmacy)) sildenafil (Viagra) 100 MG tabletIndications :Erectile dysfunction, unspecified erectile dysfunction type TAKE 1 TABLET 1 HOUR BEFORE SEXUAL RELATIONS ONCE DAILY NEEDED. 15 tablet 06/15/19 25 2024 Discontinued(M ed list cleanup (will not trigger notification to Pharmacy)) glipiZIDE (Glucotrol) 10 MG tablet TAKE 1 TABLET BY MOUTH TWICE A DAY BEFORE MEALS 180 tablet 06/17/19 25 2024 Discontinued(M ed list cleanup (will not trigger notification to Pharmacy)) esomeprazole (NexIUM) [address] capsuleIndication s:Gastroesophagea l reflux disease, unspecified whether esophagitis present TAKE 1 CAPSULE BY MOUTH EVERY DAY 90 capsule 1 06/25/19 25 2024 Discontinued(M ed list cleanup (will not trigger notification to Pharmacy)) sildenafil (Viagra) 100 MG tabletIndications :Erectile dysfunction, unspecified erectile dysfunction type TAKE 1 TABLET 1 HOUR BEFORE SEXUAL RELATIONS ONCE DAILY NEEDED. 15 tablet 08/12/19 25 2024 Discontinued(M ed list cleanup (will not trigger notification to Pharmacy)) oxyCODONE-acetami nophen (Percocet) 5-325 MG tabletIndications :Osteoarthritis involving multiple joints on both sides of body Take 1 tablet by mouth every 6 (six) hours if needed for severe pain for up to 28 days. 112 tablet 09/09/19 25 2024 aspirin 81 MG chewable tablet Chew 81 mg Once per day. 09/04/19 25 2024 Discontinued(R eorder (will not trigger notification to Pharmacy)) atorvastatin (Lipitor) 80 MG tablet Take 1 tablet by mouth at bedtime. 09/03/19 25 2024 Discontinued(M ed list cleanup (will not trigger notification to Pharmacy)) clopidogrel (Plavix) 75 MG tablet Take 1 tablet by mouth Once per day. 09/04/19 25 2024 Discontinued(R eorder (will not trigger notification to Pharmacy)) linaGLIPtin (Tradjenta) 5 MG tablet Take 1 tablet by mouth Once per day. 09/04/19 25 2024 Discontinued(M ed list cleanup (will not trigger notification to Pharmacy)) melatonin 10 MG tablet Take 1 tablet by mouth at bedtime. 2024 Discontinued(R eorder (will not trigger notification to Pharmacy)) multivitamin (Theragran-M) tablet Take 1 tablet by mouth Once per day. 09/04/19 25 2024 polyethylene glycol, PEG, 3350 (Miralax) 17 g packet Take 17 g by mouth Once per day. 09/04/19 25 2024 Discontinued(M ed list cleanup (will not trigger notification to Pharmacy)) sennosides (Senokot) 8.6 MG tablet Take 2 tablets by mouth at bedtime. 09/03/19 25 2024 Discontinued(M ed list cleanup (will not trigger notification to Pharmacy)) tamsulosin (Flomax) 0.4 MG 24 hr capsule Take 2 capsules by mouth in the morning. 09/03/19 25 2024 Discontinued(R eorder (will not trigger notification to Pharmacy)) Thiamine Mononitrate 100 MG tablet Take 1 tablet by mouth Once per day. 09/04/19 25 2024 Discontinued(M ed list cleanup (will not trigger notification to Pharmacy)) pantoprazole (ProtoNix) 40 MG EC tablet Take 40 mg by mouth Once per day. 09/04/19 25 2024 Discontinued(M ed list cleanup (will not trigger notification to Pharmacy)) metoprolol tartrate (Lopressor) 25 MG tablet Take 0.5 tablets by mouth 2 times daily. 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 dxed w Mild nonproliferative diabetic [...] Encounters Date Type Department Care Team Description 10/08/2024 Orders Only GENERIC EXTERNAL DATA DEPARTMENT Provider, Generic External Data 10/08/2024 Telephone [facility] [address] [place] [phone] Uma Chung MD Med Refill 10/07/2024 Telephone [facility] [address] [place] [address] Uma Chung MD Chart Prep 10/07/2024 Telephone [facility] [address] [place] [phone] Uma Chung MD 10/01/2024 Telephone [facility] [address] [place] [phone] Uma Chung MD Appointment Request 10/01/2024 Telephone [facility] [address] [place] [address] [phone] Uma Chung MD HDF appointment 09/29/2024 Telephone [facility] [address] [place] [phone] Uma Chung MD Chart prep 09/19/2024 Refill [facility] [address] [place] [address] [phone] Uma Chung MD 09/18/2024 Telephone [facility] [address] [place] [address] [phone] Uma Chung MD Chart Prep 09/17/2024 Telephone [facility] [address] [place] [phone] Uma Chung MD Nurse Triage 09/15/2024 Telephone [facility] [address] [place] [address] [phone] Uma Chung MD Durable Medical Equipment 09/14/2024 Refill [facility] [address] [place] [phone] Uma Chung MD H/O non-ST elevation myocardial infarction (NSTEMI); Hyperlipidemia, unspecified hyperlipidemia type; Primary osteoarthritis of both knees; Essential hypertension; Type 2 diabetes mellitus without complication, without long-term current use of insulin ([facility]); Constipation, unspecified constipation type; Insomnia, unspecified type; Horseshoe kidney; Gastroesophageal reflux disease without esophagitis 09/14/2024 Telephone [facility] [address] [place] [phone] Uma Chung MD Durable Medical Equipment 09/10/2024 Patient Outreach [facility] [address] [place] [address], [place] [address] Uma Chung MD Transition Of Care (Tcm) (HDF- scheduled(direct)) 09/03/2024 Refill [facility] [address] [place] [address] Uma Chung MD Osteoarthritis involving multiple joints on both sides of body 08/11/2024 Refill [facility] [address] [place] [address] Uma Chung MD Erectile dysfunction, unspecified erectile dysfunction type 08/11/2024 Refill [facility] [address] [place] [address] Uma Chung MD Osteoarthritis involving multiple joints on both sides of body 08/05/2024 Orders Only GENERIC EXTERNAL DATA DEPARTMENT Provider, Generic External Data 08/01/2024 Orders Only GENERIC EXTERNAL DATA DEPARTMENT Provider, Generic External Data 07/31/2024 Telephone [facility] [address] [place] [address] Uma Chung MD Nurse Triage 07/22/2024 Refill [facility] [address] [place] [address] Uma Chung MD Erectile dysfunction, unspecified erectile dysfunction type 07/16/2024 Orders Only [facility] [address] [place] [address] Uma Chung MD 07/14/2024 Refill [facility] [address] [place] [address] Uma Chung MD Erectile dysfunction, unspecified erectile dysfunction type 07/14/2024 Refill [facility] [address] [place] [address] Uma Chung MD Osteoarthritis involving multiple joints [...] your housing situation today? I have collin maria teresa 06/02/[address] you li [...] Description 11/12/2024 1:00 PM EDT Office Visit [facility] [address] [place], [place] [phone] Jimmie, Atiya, OD [address] [place] [address] Health Maintenance Due Date Last Done Comments [...] 1-dose 75+ series) 2023 Diabetes: Hemoglobin A1C 11/06/20242 025, 08/05/2024, 05/06/2024, Additional history exists Eye Exam 11/06/2024 11/07/2023, [...] Procedure Name Priority Date/Time Associated Diagnosis Comments MAGNESIUM Routine 10/08/2024 10:54 AM EDT C-REACTIVE PROTEIN Routine 10/08/2024 10 :54 AM EDT URIC ACID Routine 10/08/2024 10:54 AM EDT COMPREHENSIVE METABOLIC PANEL Routine 10/08/2024 10:54 AM EDT CBC WITH AUTO DIFFERENTIAL Routine 10/08/2024 10:54 AM EDT XR CHEST 1 VIEW Routine 08/05/2024 1:22 PM EST PTT ON HEPARIN Routine 08/05/2024 10:19 AM EST PROTHROMBIN TIME-INR Routine 08/05/2024 10:19 AM EST CBC Routine 08/05/2024 10:19 AM EST HIGH SENSITIVITY TROPONIN I Routine 08/05/2024 7:46 [...] PANEL Routine 08/01/2024 11:44 AM EST POCT GLYCATED HEMOGLOBIN, TOTAL Routine 05/06/2024 9:20 AM EST Type 2 diabetes mellitus without complication, without long-term current use of insulin ([facility]) PANORAMIC RADIOGRAPHIC IMAGE Routine 09/26/2022 11:30 AM EDT PERIODIC ORAL EVALUATION - ESTABLISHED PATIENT Routine 09/26/2022 11:30 AM EDT ZZZ HISTORICAL LIPID PANEL Routine 2021 8:18 AM EST HM COLONOSCOPY Routine 08/07/2011 from Last 3 Months or Most Recently Relevant to Health Maintenance Results * (ABNORMAL) CBC auto differential (10/08/2024 10:54 AM EDT) Only the most recent of3 resultswithin the time period is included. White Blood Count 9.7 4.8 - 10.8 X10*3/uL [facility] Red Blood Count 2.53(L) 4.60 - 5.80 X10*6/uL [facility] Hemoglobin 7.5(L) 14.0 - 18.0 g/dl [facility] Hematocrit 22.9(L) 42.0 - 52.0 % [facility] Mean Corpuscular Volume 90.5 80.0 - 98.0 fL [facility] Mean Corpuscular Hemoglobin 29.6 27.0 - 33.0 pg [facility] Mean Corpuscular HGB Conc 32.8 31.0 - 36.0 g/dl [facility] Red Cell Distribution Width 13.3 11.0 - 16.0 % [facility] Platelet Count 338 160 - 400 X10*3/uL [facility] Mean Platelet Volume 9.6 9.4 - 12.4 fL [facility] Neutrophils Percent Auto 69.4 45 - 73 % [facility] Imm Gran Pct Auto 0.6(H) 0.0 - 0.4 % [facility] Lymphocytes Percent Auto 17.3(L) 20 - 40 % [facility] Monocytes Percent Auto 10.0 2 - 11 % [facility] Eosinophils Percent Auto 2.0 0 - 4 % [facility] Basophils Percent Auto 0.7 0 - 2 % [facility] NRBC Pct Auto 0.0 0.0 - 0.2 /100WBC [facility] Neutrophils Absolute Auto 6.7 2.0 - 8.3 x10*3/uL [facility] Imm Gran Abs Auto 0.06(H) 0.00 - 0.03 X10*3/uL [facility] Lymphocytes Absolute Auto 1.7 1.2 - 4.9 X10*3/uL [facility] Monocytes Absolute Auto 1.0 0.1 - 1.2 X10*3/uL [facility] Eosinophils Absolute Auto 0.2 0.0 - 0.4 X10*3/uL [facility] Basophils Absolute Auto 0.1 0.0 - 0.2 X10*3/uL [facility] NRBC Abs Auto 0.000 0.0 - 0.012 X10*3/uL [facility] 10/08/2024 10:5 4 AM EDT 10/08/2024 10:56 AM EDT Generic External Data Provider LAB BLOOD ORDERAB LES Final Result Performing Organization Address [facility] Co de Phone Number [facility] [address] [place] [phone] * (ABNORMAL) C-reactive Protein (10/08/2024 10:54 AM EDT) Only the most recent of2 resultswithin the time period is included. C Reactive Protein 6.28(H) < or = 0.50 mg/dL [facility] 10/08/2024 10:5 4 AM EDT 10/08/2024 10:56 AM EDT Generic External Data Provider LAB BLOOD ORDERAB LES Final Result Performing Organization Address [facility]/ZIP Co de Phone Number [facility] [address] [place] [address] [phone] * Uric acid (10/08/2024 10:54 AM EDT) Only the most recent of2 resultswithin the time period is included. Uric Acid 6.7 3.4 - 7.0 mg/dL [facility] 10/08/2024 10:5 4 AM EDT 10/08/2024 10:56 AM EDT us Generic External Data Provider LAB BLOOD ORDERAB LES Final Result Performing Organization Address [facility] de Phone Number [facility] [address] [place] [phone] * (ABNORMAL) Magnesium (10/08/2024 10:54 AM EDT) Pathologist [facility] Magnesium 1.1(LL) 1.6 - 2.6 mg/dL [facility] Comment:Critical value for M AG: Results called to and read back by:LYNETTE Person calling: [email or web address] Date: 10/08/24 Time: 1125 10/08/2024 10:5 4 AM EDT 10/08/2024 10:56 AM EDT Generic External Data Provider LAB BLOOD ORDERAB LES Final Result Performing Organization Address [facility] de Phone Number [facility] [address] [place] [address] [phone] * (ABNORMAL) Comprehensive Metabolic Panel (10/08/2024 10:54 AM EDT) Only the most recent of2 resultswithin the time period is included. [facility] Sodium 135 135 - 145 mmol/L [facility] Potassium 5.1 3.3 - 5.1 mmol/L [facility] Chloride 110(H) 96 - 108 mmol/L [facility] Carbon Dioxide 19(L) 22 - 29 mmol/L [facility] Anion Gap 11(L) 12 - 20 [facility] Urea Nitrogen (BUN) 33(H) 9 - 16 mg/dL [facility] Creatinine, Serum 2.34(H) 0.5 - 1.4 mg/dL [facility] Creatinine Clr Calc Pharmacy 32.6 [facility] Comment:eGFR (calculated fro m the MDRD study equation) and eCrCl(calculated from the Cockcroft-Gault equation) are based ondifferent parameters and may not yield comparable results.If eCrCl result is absurd, please check patient'sheight/weight. Estimated Glomerular Filt Rate 27 [facility] Comment:Chronic Kidney Disea se: Estimated GFR < 60 mL/min/1.72w1Kybsvy Kidney Disease: Estimated GFR < 15 mL/min/1.73m2 Glucose 220(H) 60 - 115 mg/dL [facility] Calcium 8.0(L) 8.4 - 10.2 mg/dL [facility] Bilirubin, Total 0.5 0.0 - 1.0 mg/dL [facility] Aspartate Amino Transferase 21 5 - 37 U/L [facility] Alanine Aminotransferase <6 0 - 40 U/L [facility] Total Protein 6.7 6.5 - 8.0 g/dL [facility] Albumin Level 2.7(L) 3.5 - 5.0 g/dL [facility] Alkaline Phosphatase 99 39 - 117 U/L [facility] 10/08/2024 10:5 4 AM EDT 10/08/2024 10:56 AM EDT us Generic External Data Provider LAB BLOOD ORDERAB LES Final Result [facility] [address] [place] [phone] [phone] * XR Chest 1 View (08/05/2024 1:22 PM EST) Only the most recent of2 resultswithin the time period is included. Anatomical Region Laterality Modality Chest Radiographic Renetta ging 08/05/2024 1:22 PM EST Narrative 08/05/2024 2:40 PM EST ? [facility] ?[address]. ?[place] [address] ?XRay Report ? Signed ? Patient: Delio,Rohit ?MR#: [id number] ?? 87 ? : 1950 ?Acct:[id number] ? Age/Sex: 74 / M ?ADM Date: 03/05/25 ? Loc: [facility] ?[facility] ? Attending Dr: Karin Forde MD ? Ordering Physician: Van Akins MD ?? Date of Service: 08/05/24 ?? Procedure(s): XR chest 1V ?? Accession Number(s): [id number] ? cc: Uma Chung MD; Van Akins MD ? EXAMINATION: ?? XR CHEST ? CLINICAL INFORMATION: ?? SOB repeat ? COMPARISON: ?? August 05, 2024 at 7:50 AM. ? TECHNIQUE: ?? Frontal view of the chest was obtained. ? FINDINGS: ?? Multifocal patchy and confluent opacities extending from the perihilar ?? region to the periphery of the lungs. ?? Haziness in the lower hemithoraces. No pneumothorax. Heart silhouette ?? size is normal. ? XR/XR chest 1V ?? IMPRESSION: ?? Worsening pulmonary edema increased bilateral small pleural effusions. ? Electronically signed by: ??Pranav Frye MD ??08/05/2024 02:37 PM ?? EST RP ? Dictated By: ?Pranav Yarbrough MD ? Signed By: ?<Electronically signed by Pranav Kebede MD in OV> ? 08/05/24 1437 ? DD/ 1322 ? TD/TT: 08/05/24 1328 ? [employer]: ? Procedure Note [facility] - 08/05/[address] [address] XRay Report Signed Patient: Phil Kebede AMR#: [id number] [birth year] : 8Acct:[id number] Age/Sex: 74 / MADM Date: 08/05/24 Loc: [facility] [place]: Karin Forde MD Ordering Physician: Van Akins MD Date of Service: 08/05/24 Procedure(s): XR chest 1V Accession Number(s): [id number] cc: Uma Chung MD; Van Akins MD EXAMINATION: XR CHEST CLINICAL INFORMATION: SOB repeat COMPARISON: August 05, 2024 at 7:50 AM. TECHNIQUE: Frontal view of the chest was obtained. FINDINGS: Multifocal patchy and confluent opacities extending from the perihilar region to the periphery of the lungs. Haziness in the lower hemithoraces. No pneumothorax. Heart silhouette size is normal. XR/XR chest 1V IMPRESSION: Worsening pulmonary edema increased bilateral small pleural effusions. Electronically signed by: Pranav Frye MD 08/05/2024 02:37 PM EST RP Dictated By: Pranav Yarbrough MD Signed By: <Electronically signed by Pranav Kebede MDin OV> 08/05/24 1437 DD/ 1322 TD/TT: 08/05/24 1328 [employer]: [employer] External Provider IMG XR PROCEDURES Edited Result - Final * (ABNORMAL) APTT on Heparin (08/05/2024 10:19 AM EST) PTT on Heparin 28.8(L) 53 - 77.9 SEC [facility] Comment:For information rega rding the monitoring of heparin therapy,please refer to Pharmacy. 08/05/2024 10:1 9 AM EST 08/05/2024 10:25 AM EST Generic External Data Provider LAB BLOOD ORDERAB LES Final Result [facility] [address] [place] [phone] * Prothrombin Time-INR (08/05/2024 10:19 AM EST) Only the most recent of2 resultswithin the time period is included. Prothrombin Time 12.2 10.9 - 12.4 SEC [facility] INTERNATIONAL NORM RATIO 1.0 0.9 - 1.1 [facility] Comment:INTERNATIONAL NORMAL IZED RATIO (INR) REFERENCE RANGES Reference RangeFor patients not on anticoagulant therapy: 0.9 - 1.1INR ranges for oral anticoagulanttherapy:For prevention and treatment of venous thrombosis and pulmonary embolism: 2.0 - 3.0For acute myocardial infarction with aspirin therapy: 2.0 - 3.0For acute myocardial infarction without aspirin therapy: 3.0 - 4.0For patients with mechanical prosthetic heart valves: 2.5 - 3.5 08/05/2024 10:1 9 AM EST 08/05/2024 10:25 AM EST us Generic External Data Provider LAB BLOOD ORDERAB LES Final Result Performing Organization Address [facility]/ZIP Co de Phone Number [facility] [address] [place] [phone] * (ABNORMAL) CBC (08/05/2024 10:19 AM EST) White Blood Count 11.8(H) 4.8 - 10.8 X10*3/uL [facility] Red Blood Count 3.31(L) 4.60 - 5.80 X10*6/uL [facility] Hemoglobin 10.0(L) 14.0 - 18.0 g/dl [facility] Hematocrit 29.8(L) 42.0 - 52.0 % [facility] Mean Corpuscular Volume 90.0 80.0 - 98.0 fL [facility] Mean Corpuscular Hemoglobin 30.2 27.0 - 33.0 pg [facility] Mean Corpuscular HGB Conc 33.6 31.0 - 36.0 g/dl [facility] Red Cell Distribution Width 13.1 11.0 - 16.0 % [facility] Platelet Count 371 160 - 400 X10*3/uL [facility] Mean Platelet Volume 9.5 9.4 - 12.4 fL [facility] NRBC Pct Auto 0.0 0.0 - 0.2 /100WBC [facility] NRBC Abs Auto 0.000 0.0 - 0.012 X10*3/uL [facility] 08/05/2024 10:1 9 AM EST 08/05/2024 10:25 AM EST us Generic External Data Provider LAB BLOOD ORDERAB LES Final Result [facility] [address] [place] [address] [phone] * (ABNORMAL) High Sensitivity Troponin I (08/05/2024 7:46 AM EST) [facility] TROPONIN I HIGH SENSITIVITY 679.0(HH) <3.5 - 35.0 ng/L [facility] Comment:Critical value for H S-TnI: Results called to and read geneva: RAMON Person calling: JOSESITOTERESO Date: 08/05/24 Time: 0817The Coles high sensitivity Troponin-I results should beused in conjunction with other diagnostic information suchas ECG, clinical observations and information, and patientsymptoms to aid in the diagnosis of [place]. 08/05/2024 7:46 AM EST 08/05/2024 7:50 AM EST us Generic External Data Provider LAB BLOOD ORDERAB LES Final Result Performing Organization Address [facility] Co de Phone Number [facility] [address] [place] [phone] * Partial Thromboplastin Time, Activated (APTT) (08/05/2024 7:46 AM EST) [facility] Partial Thromboplastin Time 27.3 26.0 - 36.8 SEC [facility] Comment:For information rega rding the monitoring of direct thrombininhibitors, please refer to Pharmacy. 08/05/2024 7:46 AM EST 08/05/2024 7:50 AM EST us Generic External Data Provider LAB BLOOD ORDERAB LES Final Result Performing Organization Address [facility] Co de Phone Number [facility] [address] [place] [phone] * (ABNORMAL) SARS-CoV-2 RNA, Influenza A/B, and RSV RNA, Ql NAAT (08/05/2024 7:34 AM EST) [facility] Influenza A PCR POSITIVE(A) Negative [facility] Influenza B PCR NEGATIVE Negative [facility] Resp Syncy Virus RNA Qual PCR NEGATIVE Negative [facility] SARS COV2 PCR NEGATIVE Negative [facility] Comment:All test results mus t be [...] use by authorized laboratories.Testing performed on the [employer] GeneXpert utilizingreal-time RT-PCR.All SARS CoV2 and positive influenza A/B results arereported to [facility]. 08/05/2024 7:34 AM EST 08/05/2024 7:38 AM EST Generic External Data Provider LAB MICROBIOLOGY - GENERAL ORDERABLES Final Result [facility] [address] [place] [phone] [phone] * XR Foot 3+ Views Left (08/01/2024 12:14 PM EST) Anatomical Region Laterality Modality Lower Extremities, Foot Left Radiogra phic Imaging 08/01/2024 12:1 4 PM EST Narrative 08/01/2024 12:15 PM EST ? [facility] ?[address] ?[place] [address] ?XRay Report ? Signed ? Patient: Delio,Rohit ?MR#: [id number] ?? 87 ? : 1950 ?Acct:[id number] ? Age/Sex: 74 / M ?ADM Date: 03/01/25 ? Loc: HO.ED ? Attending Dr: ? Ordering Physician: Audra Ferrer ?? Date of Service: 08/01/24 ?? Procedure(s): XR foot LT min 3V ?? Accession Number(s): [id number] ? cc: Uma Chung MD; Audra Ferrer [...] DD/ 1214 ? TD/TT: 08/01/24 1214 ? Screwmaker Automatic: ? Procedure Note Girishcristiartemiobridgett, Image - 08/01/2024 [place] [address] XRay Report Signed Patient: Phil Kebede AMR#: [id number] 89 : 8Acct:[id number] Age/Sex: 74 / MADM Date: 08/01/24 Loc: HO.ED Attending Dr: Ordering Physician: Audra Ferrer Date of Service: 08/01/24 Procedure(s): XR foot LT min 3V Accession Number(s): [id number] cc: Uma Chung MD; Audra Ferrer CLINICAL [...] 08/01/24 1215 DD/ 1214 TD/TT: 08/01/24 1214 Screwmaker Automatic: [employer] External Provider IMG XR PROCEDURES Edited Result - Final * XR Ankle 3+ Views Left (08/01/2024 12:14 PM EST) Anatomical Region Laterality Modality Lower Extremities, Ankle Left Radiogr aphic Imaging 08/01/2024 12:1 4 PM EST Narrative 08/01/2024 12:15 PM EST ? [facility] ?[address] ?[place] [address] ?XRay Report ? Signed ? Patient: Delio,Rohit ?MR#: [id number] ?? 87 ? : 1950 ?Acct:[id number] ? Age/Sex: 74 / M ?ADM Date: 08/01/24 ? Loc: HO.ED ? Attending Dr: ? Ordering Physician: Audra Ferrer ?? Date of Service: 08/01/24 ?? Procedure(s): XR ankle LT min 3V ?? Accession Number(s): [id number] ? cc: Uma Chung MD; Audra Ferrer [...] MD in OV> ? 08/01/245 ? DD/ 13 ? TD/TT: 08/01/241213 ? Screwmaker Automatic: ? Procedure Note Vero, Image - 08/01/[address] [address] XRay Report Signed Patient: Phil Kebede AMR#: [id number] [birth year] : 8Acct:[id number] Age/Sex: 74 / MADM Date: 08/01/24 Loc: HO.ED Attending Dr: Ordering Physician: Audra Ferrer Date of Service: 08/01/24 Procedure(s): XR ankle LT min 3V Accession Number(s): [id number] cc: Uma Chung MD; Audra Ferrer CLINICAL [...] 08/01/24 1215 DD/ 1214 TD/TT: 08/01/24 1214 Screwmaker Automatic: [employer] External Provider IMG XR PROCEDURES Edited Result - Final * Slide Review (08/01/2024 11:45 AM EST) Slide Review VERIFIED [facility] 08/01/2024 11:4 5 AM EST 08/01/2024 11:48 AM EST Generic External Data Provider LAB BLOOD ORDERAB LES Final Result [facility] [address] [place] [phone] * (ABNORMAL) Sed Rate by Modified Baljeetren (08/01/2024 11:45 AM EST) Erythrocyte Sedimentation Rate 74(H) 0 - 15 MM/HR [facility] Comment:Patients with polycy themia and many hemoglobin abnormalitiesmay have depressed sed rates whereas patients with anemiamay have elevated sed rates. 08/01/2024 11:4 5 AM EST 08/01/2024 11:48 AM EST us Generic External Data Provider LAB BLOOD ORDERAB LES Final Result Performing Organization Address City/[facility]/ZIP Co de Phone Number [facility] [address] [place] [address] [phone] * (ABNORMAL) Basic Metabolic Panel (08/01/2024 11:44 AM EST) [facility] Sodium 142 135 - 145 mmol/L [facility] Potassium 4.3 3.3 - 5.1 mmol/L [facility] Chloride 111(H) 96 - 108 mmol/L [facility] Carbon Dioxide 21(L) 22 - 29 mmol/L [facility] Anion Gap 14 12 - 20 [facility] Urea Nitrogen (BUN) 28(H) 9 - 16 mg/dL [facility] Creatinine, Serum 2.29(H) 0.5 - 1.4 mg/dL [facility] Creatinine Clr Calc Pharmacy 30.1 [facility] Comment:eGFR (calculated fro m the MDRD study equation) and eCrCl(calculated from the Cockcroft-Gault equation) are based ondifferent parameters and may not yield comparable results.If eCrCl result is absurd, please check patient'sheight/weight. Estimated Glomerular Filt Rate 28 [facility] Comment:Chronic Kidney Disea se: Estimated GFR < 60 mL/min/1.37a2Hwqtio Kidney Disease: Estimated GFR < 15 mL/min/1.73m2 Glucose 154(H) 60 - 115 mg/dL [facility] Calcium 8.5 8.4 - 10.2 mg/dL [facility] 08/01/2024 11:4 4 AM EST 08/01/2024 11:48 AM EST us Generic External Data Provider LAB BLOOD ORDERAB LES Final Result Performing Organization Address City/[facility]/ZIP Co de Phone Number [facility] [address] [place] [phone] * (ABNORMAL) POCT HGB A1C (05/06/2024 9:20 AM EST) Hemoglobin A1C 7.3(A) 4.0 - 6.0 % QC Media Lot # [id number] Lot# Expiration Date ,025 Blood 05/06/2024 9:20 AM EST us Uma [...] liver disease. LDL Cholesterol Calculated 80 mg/dl [facility] Comment: Desirable LDL: ? less [...] Alkaline Phosphatase 105 39 - 117 U/L [facility] Aspartate Amino Transferase 27 5 - 37 U/L [facility] Bilirubin Direct 0.3 0.0 - 0.5 mg/dL [facility] Bilirubin Total 0.6 0.0 - 1.0 mg/dL [facility] Total Protein 8.1(H) 6.5 - 8.0 g/dL [facility] Vitamin D 25-OH Total 24.0 >30 ng/mL [facility] Comment: Health Based Reference Values* [...] 34 [facility] Comment: NOTE: ??For -[place] individuals, multiply the result ?by 1.210. ?? Chronic Kidney Disease: ??Estimated GFR < 60 mL/min/1.73m2 Severe Kidney Disease: ??Estimated GFR < 15 mL/min/1.73m2 Glucose Random 168(H) 60 - 115 mg/dL [facility] Potassium 5.1 3.3 - 5.1 mmol/L [facility] Sodium 140 135 - 145 mmol/L [facility] TSH reflex Free T4 1.51 0.32 - 4.0 uIU/mL [facility] 2021 8:18 AM EST us Uma Friedman MD HISTORICAL/NON ORDERA BLE LABS Final Result [facility] [address] [place] [address], * Colonoscopy (08/07/2011) us Historical Provider HEALTH MAINTENANCE Final Result from Last 3 Months or Most Recently Relevant to Health Maintenance Insurance [id number] LONG-TERM OPTIONS (HMO D-SNP) [facility] Care Teams Back End Web Developer Relationship Specialty Start Date End Date Uma Chung MD [address] [place] [phone] PCP - General Family Medicine 02/21/18 Altranais 09/15/24
--- OUTSIDE RECORDS SUMMARY | 2024-10-08 11:30 | XMS_ITS | Encounter Summary ---
Author Organization [employer] Address [address] [place] [address] Care Team Providers Care Rib Builder Name Role Phone Uma Chung MD Primary Care Provide r Encounter Details Date Type Department Care Team ([facility] st Contact Info) Description 10/07/2024 Telephone [facility] [address] [place], [place] [phone] Uma Chung MD [address] [place], [place] [phone] Social History Tobacco Use Types Packs/Day Years [...] 11/12/2024 1:00 PM EDT Office Visit [facility] [address] [place] [address] Atiya Samuel, OD [address] [place] [address] documented as of this encounter Visit Diagnoses Not on filedocumented in this encounter Additional Health Concerns Assessment Noted Time PHQ-9 Depression Total Score: 4 05/06/20 24 9:16 AM EST documented as of this encounter Care Teams Rib Builder Relationship Specialty Start Date End Date Uma Chung MD [address] [place] [address] PCP - General Family Medicine 02/21/18 Altranais 09/15/24 documented as of this encounter
--- OUTSIDE RECORDS SUMMARY | 2024-10-08 11:30 | XMS_ITS | Encounter Summary ---
Author Organization [employer] Address [address] [facility] 7t [place] [address] Care Team Providers Care Rn Hospital Name Role Phone Uma Chung MD Primary Care Provide r Reason for Visit * Reason Onset Date Comments Med Refill 01/10/2023 Encounter Details Date Type Department Care Team ([facility] st Contact Info) Description 01/10/[address] [facility] [address] [place] [address] Uma Chung MD [address] [place] [address] Med Refill Social History Tobacco Use Types [...] Description 11/12/2024 1:00 PM EDT Office Visit [facility] [address] [place], [place] [phone] Atiya Samuel, OD [address] [place] [address] documented as of this encounter Visit Diagnoses Not on filedocumented in this encounter Additional Health Concerns Assessment Noted Time PHQ-9 Depression Total Score: 0 12/13/19 23 10:21 AM EDT documented as of this encounter Care Teams Rn Hospital Relationship Specialty Start Date End Date Uma Chung MD [address] [place] [address] PCP - General Family Medicine 02/21/18 Altranais 09/15/24 documented as of this encounter
--- OUTSIDE RECORDS SUMMARY | 2024-10-08 11:30 | XMS_ITS | Encounter Summary ---
Author Organization [employer] Address [address] [facility] 7t [place] [address] Care Team Providers Care Concrete Pourer Name Role Phone Uma Chung MD Primary Care Provide r Reason for Visit * Reason Onset Date Comments Med Refill 03/15/2023 Encounter Details Date Type Department Care Team ([facility] st Contact Info) Description 03/15/[address] [facility] [address] [place] [address] Uma Chung MD [address] [place] [address] Osteoarthritis involving multiple joints on both sides [...] - 03/15/2023 12:00 PM EDT TC to [facility] pharmacy, spoke with Ema, confirmed that Percocet from 03/13/23 was not dispensed.Requested RX be cancelled. * Telephone Encounter - Meg Castelan - 03/15/2023 11:34 AM EDT Tc from son requesting new script to be send to [facility], son stated [facility] blue pills and pt wants white ones. documented in this encounter Plan of Treatment Upcoming Encounters Date Type Department Care Team (Late st Contact Info) Description 11/12/2024 1:00 PM EDT Office Visit [facility] [address] [place] [address] Jimmie, Atiya, OD [address] [place] [address] documented as of this encounter Visit Diagnoses Diagnosis Osteoarthritis involving multiple joints on both sides of body documented in this encounter Additional Health Concerns Assessment Noted Time PHQ-9 Depression Total Score: 0 12/13/19 23 10:21 AM EDT documented as of this encounter Care Teams Concrete Pourer Relationship Specialty Start Date End Date Uma Chung MD [address] [place] [address] PCP - General Family Medicine 02/21/18 Altranais 09/15/24 documented as of this encounter
--- OUTSIDE RECORDS SUMMARY | 2024-10-08 11:30 | XMS_ITS | Encounter Summary ---
Author Organization ? [employer] Address [address] [facility] [address] [place] [address] Care Team Providers Care Alternative Dispute Resolution Mediator Name Role Phone Uma Chung MD Primary Care Provide r Reason for Visit * Reason Onset Date Comments Med Refill 06/15/2024 Encounter Details Date Type Department Care Team ([facility] st Contact Info) Description 06/15/2024 Telephone [facility] [address] [place] [address] Uma Chung MD [address] [place], [place] [phone] Med Refill Social History Tobacco Use Types [...] 100 MG tablet To be sent to: [facility] documented in this encounter Plan of Treatment Upcoming Encounters Date Type Department Care Team (Late st Contact Info) Description 11/12/2024 1:00 PM EDT Office Visit [facility] [address] [place] [address] Jimmie, Atiya, OD [address] [place] [address] documented as of this encounter Visit Diagnoses Not on filedocumented in this encounter Additional Health Concerns Assessment Noted Time PHQ-9 Depression Total Score: 4 05/06/20 24 9:16 AM EST documented as of this encounter Care Teams Alternative Dispute Resolution Mediator Relationship Specialty Start Date End Date Uma Chung MD [address] [place] [address] PCP - General Family Medicine 02/21/18 Altranais 09/15/24 documented as of this encounter
--- OUTSIDE RECORDS SUMMARY | 2024-10-08 11:30 | XMS_ITS | Encounter Summary ---
Author Organization [employer] Address [address] [facility] 7t [place] [address] Care Team Providers Care Driller Machine Name Role Phone Uma Chung MD Primary Care Provide r Reason for Visit * Reason Comments Med Refill Encounter Details Date Type Department Care Team ([facility] st Contact Info) Description 07/17/2023 Refill [facility] [address] [place], [place] [phone] Uma Chung MD [address] [place] [address] Osteoarthritis involving multiple joints on both sides [...] [facility] [address] [place], [place] [phone] Atiya Samuel, OD [address] [place], [place] [phone] documented as of this encounter Visit Diagnoses Diagnosis Osteoarthritis involving multiple joints on both sides of body documented in this encounter Additional Health Concerns Assessment Noted Time PHQ-9 Depression Total Score: 0 12/13/19 23 10:21 AM EDT documented as of this encounter Care Teams Driller Machine Relationship Specialty Start Date End Date Uma Chung MD [address] [place], [place] [phone] PCP - General Family Medicine 02/21/18 Ingeranzenobias 09/15/24 documented as of this encounter
--- OUTSIDE RECORDS SUMMARY | 2024-10-08 11:30 | XMS_ITS | Encounter Summary ---
Author Organization [employer] Address [address] [place] [address] Care Team Providers Care Cue Selector Name Role Phone Uma Chung MD Primary Care Provide r Encounter Details Date Type Department Care Team (Late st Contact Info) Description 05/14/2023 Orders Only [facility] [address] [place], [place] [phone] Chelly Holloway LPN Social History Tobacco Use [...] Description 11/12/2024 1:00 PM EDT Office Visit [facility] [address] [place] [address] Jimmie, Atiya, OD [address] [place], [place] [phone] documented as of this encounter Visit Diagnoses Not on filedocumented in this encounter Additional Health Concerns Assessment Noted Time PHQ-9 Depression Total Score: 0 12/13/19 23 10:21 AM EDT documented as of this encounter Care Teams Cue Selector Relationship Specialty Start Date End Date Uma Chung MD [address] [place] [address] PCP - General Family Medicine 02/21/18 Altranzeonbias 09/15/24 documented as of this encounter
--- OUTSIDE RECORDS SUMMARY | 2024-10-08 11:31 | XMS_ITS | Data Portability ---
Author Organization [place] [employer] Address [address] [place] [address] Care Team Providers Care Mechanical Test Engineer Name Role Phone ANGELES GONZALESLARA Primary Care Provider [facility] OTHER Assessment No assessment recorded. Plan of [...] SNOMED-CT Code Diagnosis ICD10 Code Diagnosis Note [id number] Porter Bran MD Main - [facility] [address] [place] [phone] 04/25/2024 14:33:24 04/27/2024 17:48:06 Acute exacerbation of chronic obstructive pulmonary disease 982217816 J44.1 As noted, we were called to see this patient regarding concerns of need for post-d/c check. Evaluation in the field was performed by my dye tank tender colleague, as noted above, I provided real-time [...] so no role for abx here. Plan:[facility] Primary caredanielle visit this week to [...] Recorded Advance Directives Directive None Recorded Payers Insurance Date Sequence Insurance Name Policy Number Policy Pedersen Covered Member ID Pedersen Member ID Guarantor Name 04/22/2024 1 [facility] - DOS ON OR AFTER 2022 - DUAL ELIGIBLE - HALF-WAY OPTIONS AND ONE CARE (MEDICARE REPLACEMENT/ADV ANTAGE - HMO) Phil Kebede [id number] Phil Kebede Notes Date Note Type Note [...] elevated. Would also like eval of BP. Electronic Equipment Installer Organization Information for JuanColeman davies [employer] Legal Name: [facility] Address: [address] [place] [address], [place] [address], Continuous Conveyor Screen Drier: Rei Blake MD CLIA No.: [id number] Electronic Equipment Installer POC Test Results from Coleman Stauffer Blood Glucose Measurement (14:28:26) Blood Glucose: 311 mg/dL Rapid COVID antigen (14:28:30) COVID: - Rapid influenza antigen (14:28:30) Flu: - .................... .................... .................... .................... .................... .................... .................... . Electronic Equipment Installer Note From Coleman Stauffer: This 73-year-old male [...] .................... .................... .................... .................... .................... .................... . [facility] Consulted: Cory Bran .................... .................... .................... .................... .................... .................... .................... . Disposition: Fulfilled Porter Bran MD [address] [facility], [place], [address], [facility] 04/26/2024 16:58:35
--- OUTSIDE RECORDS SUMMARY | 2024-10-08 11:31 | XMS_ITS | Encounter Summary ---
Author Organization [employer] Address [address] [facility] [address] [place] [address] Care Team Providers Care Contract Negotiator Name Role Phone Uma Chung MD Primary Care Provide r Reason for Visit * Reason Comments Med Refill Encounter Details Date Type Department Care Team ([facility] st Contact Info) Description 05/07/2023 Refill [facility] [address] [place] [address] Uma Chung MD [address] [place] [address] Osteoarthritis involving multiple joints on both sides [...] Description 11/12/2024 1:00 PM EDT Office Visit [facility] OPTOMETRY [address] [place], [place] [phone] Atiya Samuel, OD [address] [place], [place] [phone] documented as of this encounter Visit Diagnoses Diagnosis Osteoarthritis involving multiple joints on both sides of body documented in this encounter Additional Health Concerns Assessment Noted Time PHQ-9 Depression Total Score: 0 12/13/19 23 10:21 AM EDT documented as of this encounter Care Teams Contract Negotiator Relationship Specialty Start Date End Date Uma Chung MD [address] [place], [place] [phone] PCP - General Family Medicine 02/21/18 Ingeranzenobias 09/15/24 documented as of this encounter
[2024-10-08] MEDS: HYDROmorphone HCl 1 MG/ML SYRINGE IVPUSH (11:36)
[2024-10-08 11:42] LABS: Erythrocyte Sedimentation Rate 115 MM/HR (0-15)
[2024-10-08 11:53] VITALS: BP 122/73; PULSE 88; RESP 18; O2SAT 96
[2024-10-08] MEDS: Lidocaine HCl 1 % MPF 5 ML VIAL INFILTRATI (11:55)
[2024-10-08 12:09] LABS: Source Synovial Fluid Right knee
[2024-10-08] MEDS: Magnesium Oxide 400 MG TABLET 800 MG PO (12:39)
[2024-10-08 12:42] LABS: MN% 14.4 %; PMN% 85.6 %
[2024-10-08 12:53] LABS: RBC Synovial Fluid 0.006 X10*6/uL
[2024-10-08 13:16] LABS: BF Shift QC OK YES; Man Diluent Bkgrd OK YES; Neutrophils Synovial Fluid 85 %
[2024-10-08 13:17] LABS: Lymphocytes Synovial Fluid 3 %; Monocytes Synovial Fluid 12 %
[2024-10-08 14:00] VITALS: BP 133/74; PULSE 90; RESP 18; O2SAT 100
[2024-10-08] MEDS: HYDROmorphone HCl 1 MG/ML SYRINGE IM (14:47)
[2024-10-08 15:48] VITALS: BP 139/81; PULSE 83; RESP 18; TEMP 36.8; O2SAT 100
[2024-10-09 08:19] LABS: Uric Acid Synovial Fluid 7
== END 2024-10-08 15:50 | disposition home or self-care (01) ==
PROVIDERS: Physician Assistant Medical; Emergency Provider Emergency Medicine Emergency Medical Services; PCP Internal Medicine
DX: M11.261 Other chondrocalcinosis, right knee (principal); M25.561 Pain in right knee; E11.9 Type 2 diabetes mellitus without complications; I48.91 Unspecified atrial fibrillation; K21.9 Gastro-esophageal reflux disease without esophagitis; Z79.899 Other long term (current) drug therapy
CPT/HCPCS: 36415; 80053; 83735; 84550; 84560; 85025; 85652; 86140; 87070; 87073; 87205; 89051; 89060; 96372; 96374; 99284; J1171; J2003; J3475

== ENCOUNTER 2024-11-09 07:02 | Outpatient (REF) | payer OTHER, SELFPAY ==
--- OUTSIDE RECORDS SUMMARY | 2024-11-09 07:05 | XMS_ITS | Clinical Summary ---
Author Organization [facility] Address [address] [facility] [address] [place] [address] Phone Care Team Providers Care Dish Maker Name Role Phone Uma Chung MD Primary [...] DOS VECES AL D A EN LA [place] RAVI Y EN LA NOCHE 1 Active [...] % PVNMA 03/29/2020 us [facility] [id number] LICITED RESULTS Final Result PVNMA from Last 3 Months or Most Recently Relevant to Health Maintenance [facility] Care Teams Dish Maker Relationship Specialty Start Date End Date Uma Chung MD [address] [place] [phone] PCP - General 06/13/20
[2024-11-09 07:44] LABS: Anion Gap 13 (12-20); Blood Urea Nitrogen 24 mg/dL (9-16); Calcium 8.2 mg/dL (8.4-10.2); Carbon Dioxide 22 mmol/L (22-29); Chloride 108 mmol/L (96-108); Cholesterol 92 mg/dL (<200); Estimated Glomerular Filt Rate 21; Glucose Random 179 mg/dL (60-115); HDL Cholesterol 28 mg/dL (>40); LDL Cholesterol Calculated 41 mg/dL (<100); Potassium 4.4 mmol/L (3.3-5.1); Sodium 139 mmol/L (135-145); Triglycerides 117 mg/dL (<150)
[2024-11-09 07:46] LABS: B Type Natriuretic Peptide 768 pg/mL (<100)
== END 2024-11-09 07:03 | disposition home or self-care (01) ==
LOC: HO.LAB 07:02
PROVIDERS: PCP Internal Medicine; Visit Provider Internal Medicine Cardiovascular Disease
DX: I50.20 Unspecified systolic (congestive) heart failure (principal); N18.9 Chronic kidney disease, unspecified; D64.9 Anemia, unspecified; E11.9 Type 2 diabetes mellitus without complications
CPT/HCPCS: 36415; 80048; 80061; 83880; 99202

== ENCOUNTER 2024-11-09 11:46 | Outpatient (AMB) | payer OTHER, SELFPAY ==
--- NOTE | 2024-11-09 11:48 | HO.NEPHOV_ITS ---
Vital Signs 11/09/24 11:50 Weight 190 lb 2 oz BP 100/70 Blood Pressure Location Rt brachial Position Sitting Pulse 90 Pulse Source Pulse Oximeter Pulse Oximetry (%) 97 Oxygen Delivery Method Room Air Intake Visit Reasons: ENP: CKD STG4 Truss Puller Helper Required: Yes Truss Puller Helper Language: Steam Oven Operator Services: Truss Puller Helper Offered & Declined ([facility] Truss Puller Helper services refused ) Accompanied by: Son Allergies No Known Allergies Allergy (Verified 10/08/24 09:54) Medication List - Last Reconciled 11/09/24 by Evan Donald MD acetaminophen 975 mg PO TID PRN aspirin 81 mg PO DAILY atorvastatin 80 mg PO BEDTIME clopidogrel 75 mg PO DAILY cromolyn 4% 1 drp ophthalmic (eye) DAILY PRN dapagliflozin propanediol (Farxiga) 10 mg PO DAILY furosemide 20 mg PO DAILY lidocaine 5% 1 patch topical DAILY linagliptin (Tradjenta) 5 mg PO DAILY melatonin 10 mg PO BEDTIME PRN metoprolol succinate ER 12.5 mg PO DAILY pantoprazole 40 mg PO DAILY polyethylene glycol 3350 17 grams PO DAILY sacubitril-valsartan 24-26 mg (Entresto) 1 tab PO BID sennosides (senna) 8.6 mg PO BEDTIME tamsulosin 0.8 mg PO DAILY thiamine HCl (vitamin B1) 100 mg PO DAILY vericiguat (Verquvo) 5 mg PO DAILY HPI Comments Details: 74-year-old male with a h/o CAD, HTN and DM refered for chronic kidney disease management and declining renal function . He has a horseshoe kidney and underwent a CT scan in October 2023 revealing multiple renal cysts. Current renal function is significantly reduced, with a GFR of 21%, and anemia is present with hemoglobin levels at 7.5 g/dL. The patient had a cardiac bypass surgery recently, and renal concerns were highlighted during cardiac care follow-up. He reports minor intermittent urinary issues and historical swelling in the lower extremities. No significant current respiratory issues, although shortness of breath was noted previously. The patient currently avoids NSAIDs due to past recommendations. [facility] Medical History Benign prostatic hyperplasia with lower urinary tract symptoms GERD (gastroesophageal reflux disease) Social History Household Members: None Housing: Apartment Do you presently have visiting nurse or other home services: No Unable to assess alcohol history related to: Unknown Alcohol intake: never Patient Tobacco Use Status: Never used Tobacco Second Hand Smoke Exposure: No Review of Systems Const Denies fever(s) and Denies weight loss Card Denies chest pain Resp Denies cough and Denies hemoptysis GI Denies abdominal pain, Denies diarrhea and Denies nausea Musc Denies back pain Neuro Denies focal weakness Physical Exam Vital Signs: Last Vital Signs Pulse 90 11/09/24 11:50 BP 100/70 11/09/24 11:50 Pulse Ox 97 11/09/24 11:50 Oxygen Delivery Method Room Air 11/09/24 11:50 Const General: comfortable Nutritional Appearance: well nourished Orientation/consciousness: patient oriented x3 HEENT Head: No normal to inspection Mouth: moist mucous membranes Neck Neck: Yes supple and Yes no JVD Resp Auscultation: clear to auscultation bilaterally, no rales and rub present Cardio Jugular venous distension: no JVD Palpation: no palpable S3 and no palpable S4 Heart sounds: no rubs GI Palpation (GI): Soft to palpation and nontender Percussion: No Fluid wave present General: Yes no CVA tenderness Back/Spine/Pelvis Back: no CVA tenderness Skin General skin exam: no rashes or lesions noted Neuro General: patient oriented x3 Extrem General: Yes no pedal edema and No clubbing Results Reviewed Nephrology Results: Hgb 7.5 g/dl (14.0-18.0) L 10/08/24 WBC 9.7 X10*3/uL (4.8-10.8) 10/08/24 Plt Count 338 X10*3/uL (160-400) 10/08/24 Sodium 139 mmol/L (135-145) 11/09/24 Potassium 4.4 mmol/L (3.3-5.1) 11/09/24 Chloride 108 mmol/L (96-108) 11/09/24 Carbon Dioxide 22 mmol/L (22-29) 11/09/24 BUN 24 mg/dL (9-16) H 11/09/24 Creatinine 2.99 mg/dL (0.5-1.4) H 11/09/24 Calcium 8.2 mg/dL (8.4-10.2) L 11/09/24 Assessment & Plan Assessment & Plan (1) CKD (chronic kidney disease): Comment: In a setting of long standing DM/HTN h/o Horseshoe kidney with multiple cysts Code(s): N18.9 - Chronic kidney disease, unspecified Category: Medical (2) Anemia: Comment: Post OP anemia vs EPO deficiency Code(s): D64.9 - Anemia, unspecified Category: Medical Plan: I explained the significance of the patient's current kidney function, highlighting the risks associated with a GFR of 21%. We discussed the management goals, including dietary modifications to reduce sodium intake, and the importance of avoiding nephrotoxins including NSAIDs. The patient agreed to these management strategies and showed understanding regarding the potential for dialysis at lower GFR levels. We reviewed upcoming lab work, specifically addressing the need to monitor hemoglobin levels due to anemia, with erythropoietin-stimulating agents considered if levels remain low. I emphasized the importance of ongoing collaboration with his primary care and cardiology teams to ensure comprehensive care. The patient is aware of the need for regular follow-ups and the urgency of addressing any sudden changes in symptoms. Work up as outlined below. (3) Diabetes mellitus: Code(s): E11.9 - Type 2 diabetes mellitus without complications Category: Medical Plan Management per PCP Concur with SGLT-2 inhibitors Orders: Orders Phosphorus Today N18.9 - Chronic kidney disease, unspecified Vitamin B12 and Folate Today N18.9 - Chronic kidney disease, unspecified Comprehensive Met. Panel 6 Weeks N18.9 - Chronic kidney disease, unspecified Complete Blood Count Auto Diff Today N18.9 - Chronic kidney disease, unspecified Parathyroid Hormone Intact Today N18.9 - Chronic kidney disease, unspecified IRON PROFILE Today N18.9 - Chronic kidney disease, unspecified Ferritin Today N18.9 - Chronic kidney disease, unspecified Coding Level of Care Code New Pt Level 4 (98279) Diagnoses CKD (chronic kidney disease) N18.9 Anemia D64.9 Diabetes mellitus E11.9
[2024-11-09 11:50] VITALS: BP 100/70; PULSE 90; O2SAT 97
== END 2024-11-09 12:10 | disposition home or self-care (01) ==
PROVIDERS: PCP Internal Medicine; Visit Provider Internal Medicine Hypertension Specialist
DX: N18.9 Chronic kidney disease, unspecified (principal); D64.9 Anemia, unspecified; E11.9 Type 2 diabetes mellitus without complications
CPT/HCPCS: 99204

== ENCOUNTER 2024-11-10 09:31 | Outpatient (REF) | payer OTHER, SELFPAY ==
--- OUTSIDE RECORDS SUMMARY | 2024-11-10 10:29 | XMS_ITS | Clinical Summary ---
Author Organization [facility] Address [address] [place] [address] Phone Care Team Providers Care Weather Teacher Name Role Phone Uma Chung MD Primary [...] DOS VECES AL D A EN LA MS RAVI Y EN LA NOCHE 1 Active [...] % PVNMA 03/29/2020 us Rtama Conversion LAB [id number] LICITED RESULTS Final Result PVNMA from Last 3 Months or Most Recently Relevant to Health Maintenance Insurance [facility] Care Teams Weather Teacher Relationship Specialty Start Date End Date Uma Chung MD [address] [place] [id number] PCP - General 06/13/20
[2024-11-10 13:13] LABS: MANUAL DIFF FLAG NO
[2024-11-10 13:34] LABS: Basophils Absolute Auto 0.1 X10*3/uL (0.0-0.2); Eosinophils Absolute Auto 0.5 X10*3/uL (0.0-0.4); Hematocrit 27.5 % (42.0-52.0); Hemoglobin 8.6 g/dl (14.0-18.0); Imm Gran Abs Auto 0.06 X10*3/uL (0.00-0.03); Imm Gran Pct Auto 0.7 % (0.0-0.4); Lymphocytes Absolute Auto 3.1 X10*3/uL (1.2-4.9); Lymphocytes Percent Auto 34.1 % (20-40); Mean Corpuscular HGB Conc 31.3 g/dl (31.0-36.0); Mean Corpuscular Hemoglobin 29.1 pg (27.0-33.0); Mean Corpuscular Volume 92.9 fL (80.0-98.0); Mean Platelet Volume 9.8 fL (9.4-12.4); Monocytes Absolute Auto 0.7 X10*3/uL (0.1-1.2); Monocytes Percent Auto 7.4 % (2-11); Neutrophils Absolute Auto 4.6 x10*3/uL (2.0-8.3); Neutrophils Percent Auto 50.8 % (45-73); Platelet Count 428 X10*3/uL (160-400); Red Blood Count 2.96 X10*6/uL (4.60-5.80); White Blood Count 9.1 X10*3/uL (4.8-10.8)
[2024-11-10 13:59] LABS: Iron 34 mcg/dL (45-160); Percent Iron Saturation 22 % (15-50); Phosphorus 3.6 mg/dL (2.7-4.5); Total Iron Binding Capacity 157 mcg/dL (228-428); Unsaturated Iron Binding 123 ug/dL
[2024-11-10 14:14] LABS: Parathyroid Hormone Intact 234.4 pg/mL (8.7-77.1)
[2024-11-10 14:16] LABS: Ferritin 414 ng/mL (20-250)
[2024-11-10 14:25] LABS: Folate 8.7 ng/mL (> or = 4.0); Vitamin B12 503 pg/mL (200-900)
== END 2024-11-10 09:32 | disposition home or self-care (01) ==
LOC: HO.10HDL 09:31
PROVIDERS: Visit Provider Internal Medicine Hypertension Specialist
DX: N18.9 Chronic kidney disease, unspecified (principal)
CPT/HCPCS: 36415; 82607; 82728; 82746; 83540; 83970; 84100; 85025

== ENCOUNTER 2024-12-29 11:58 | Outpatient (AMB) | payer OTHER, SELFPAY ==
--- NOTE | 2024-12-29 12:00 | HO.NEPHOV ---
Vital Signs 12/29/24 12:01 Height 6 ft Weight 189 lb BMI 25.6 BP 98/60 Blood Pressure Location Rt brachial Position Sitting Pulse 88 Pulse Source Pulse Oximeter Pulse Oximetry (%) 98 Oxygen Delivery Method Room Air Intake Visit Reasons: 1 mo fu w/labs Mimeograph Operator Required: No Mimeograph Operator Services: Mimeograph Operator Offered & Declined (Son will translate) Accompanied by: Son Allergies No Known Allergies Allergy (Verified 12/29/24 12:03) Medication List - Last Reconciled 12/29/24 by Evan Donald MD acetaminophen 975 mg PO TID PRN aspirin 81 mg PO DAILY atorvastatin 80 mg PO BEDTIME clopidogrel 75 mg PO DAILY cromolyn 4% 1 drp ophthalmic (eye) DAILY PRN dapagliflozin propanediol (Farxiga) 10 mg PO DAILY furosemide 20 mg PO DAILY lidocaine 5% 1 patch topical DAILY linagliptin (Tradjenta) 5 mg PO DAILY melatonin 10 mg PO BEDTIME PRN metoprolol succinate ER 12.5 mg PO DAILY pantoprazole 40 mg PO DAILY polyethylene glycol 3350 17 grams PO DAILY sacubitril-valsartan 24-26 mg (Entresto) 1 tab PO BID sennosides (senna) 8.6 mg PO BEDTIME tamsulosin 0.8 mg PO DAILY thiamine HCl (vitamin B1) 100 mg PO DAILY vericiguat (Verquvo) 5 mg PO DAILY HPI Comments Details: 74-year-old male with a h/o CAD, HTN and DM refered for chronic kidney disease management and declining renal function . He has a horseshoe kidney and underwent a CT scan in October 2023 revealing multiple renal cysts. Current renal function is significantly reduced, with a GFR of 21%, and anemia is present with hemoglobin levels at 7.5 g/dL. The patient had a cardiac bypass surgery recently, and renal concerns were highlighted during cardiac care follow-up. He reports minor intermittent urinary issues and historical swelling in the lower extremities. No significant current respiratory issues, although shortness of breath was noted previously. The patient currently avoids NSAIDs due to past recommendations. [facility] Medical History Benign prostatic hyperplasia with lower urinary tract symptoms GERD (gastroesophageal reflux disease) Social History Household Members: None Housing: Apartment Do you presently have visiting nurse or other home services: No Unable to assess alcohol history related to: Unknown Alcohol intake: never Patient Tobacco Use Status: Never used Tobacco Second Hand Smoke Exposure: No Physical Exam Vital Signs: Last Vital Signs Pulse 88 12/29/24 12:01 BP 98/60 12/29/24 12:01 Pulse Ox 98 12/29/24 12:01 Oxygen Delivery Method Room Air 12/29/24 12:01 BMI result Body Mass Index 25.6 Const General: comfortable Nutritional Appearance: well nourished Orientation/consciousness: patient oriented x3 HEENT Head: No normal to inspection Mouth: moist mucous membranes Neck Neck: Yes supple and Yes no JVD Resp Auscultation: clear to auscultation bilaterally, no rales and rub present Cardio Jugular venous distension: no JVD Palpation: no palpable S3 and no palpable S4 Heart sounds: no rubs GI Palpation (GI): Soft to palpation and nontender Percussion: No Fluid wave present General: Yes no CVA tenderness Back/Spine/Pelvis Back: no CVA tenderness Skin General skin exam: no rashes or lesions noted Neuro General: patient oriented x3 Extrem General: Yes no pedal edema and No clubbing Results Reviewed Nephrology Results: Hgb, (14.0-18.0) 9.3 g/dl L Today WBC, (4.8-10.8) 7.7 X10*3/uL Today Plt Count, (160-400) 284 X10*3/uL Δ Today Sodium, (135-145) 142 mmol/L Today Potassium, (3.3-5.1) 5.0 mmol/L Today Chloride, (96-108) 109 mmol/L H Today Carbon Dioxide, (22-29) 25 mmol/L Today BUN, (9-16) 32 mg/dL H Today Creatinine, (0.5-1.4) 3.21 mg/dL H Today Calcium, (8.4-10.2) 8.3 mg/dL L Today Phosphorus, (2.7-4.5) 3.6 mg/dL 11/10/24 PTH Intact, (8.7-77.1) 234.4 pg/mL H 11/10/24 Renal US 01/05/21 Assessment & Plan Assessment & Plan (1) CKD (chronic kidney disease): Comment: In a setting of long standing DM/HTN h/o Horseshoe kidney with multiple cysts Code(s): N18.9 - Chronic kidney disease, unspecified Category: Medical (2) Anemia: Comment: Post OP anemia vs EPO deficiency Code(s): D64.9 - Anemia, unspecified Category: Medical Plan: CKD 4 with eGFR of 21%. We discussed the management goals, including dietary modifications to reduce sodium intake, and the importance of avoiding nephrotoxins including NSAIDs. The patient agreed to these management strategies and showed understanding regarding the potential for dialysis at lower GFR levels. Avoid hypotension and nephrotoxins Keep current meds I emphasized the importance of ongoing collaboration with his primary care and cardiology teams to ensure comprehensive care. (3) Diabetes mellitus: Code(s): E11.9 - Type 2 diabetes mellitus without complications Category: Medical Plan Management per PCP Concur with SGLT-2 inhibitors Orders: Orders IRON PROFILE Today N18.9 - Chronic kidney disease, unspecified Basic Metabolic Panel Today N18.9 - Chronic kidney disease, unspecified Complete Blood Count no Diff Today N18.9 - Chronic kidney disease, unspecified Ferritin Today N18.9 - Chronic kidney disease, unspecified Coding Level of Care Code Est Pt Level 4 (82367) Diagnoses CKD (chronic kidney disease) N18.9 Anemia D64.9 Diabetes mellitus E11.9
[2024-12-29 12:01] VITALS: BP 98/60; PULSE 88; O2SAT 98; BMI 25.6
--- OUTSIDE RECORDS SUMMARY | 2024-12-29 12:55 | XMS_ITS ---
Author Name [facility] Organization Unknown Results Test Name/Text Value Interpretation Date Range Source POC Glucose 213.0 mg/dL Above high normal 09/02/2024 65 - 99 H[facility]CT POC Glucose 155.0 mg/dL Above high normal 09/02/2024 65 - 99 HHCCT Magnesium SerPl-mCnc 2.0 mg/dL Normal 09/02/2024 1.6 - 2.7 HHCCT BUN SerPl-mCnc 50.0 mg/dL Above high normal 09/02/2024 8 - 2 1 HHCCT CO2 SerPl-sCnc 21.0 mmol/L Below low normal 09/02/2024 22 - 33 HHCCT Chloride SerPl-sCnc 108.0 mmol/L Above high normal 98 - 107 HHCCT Anion Gap Bld-sCnc 9.0 Normal 09/02/2024 7 - 17 HHCCT Sodium SerPl-sCnc 138.0 mmol/L Normal 09/02/2024 136 - 14 5 HHCCT GFR/BSA.pred SerPlBld XZW-RNP-TjLZxy 21.0 Below low normal 09/02/2024 59 - HHCCT Creat SerPl-mCnc 3.0 mg/dL Above high normal 09/02/2024 0.5 - 1.3 HHCCT Calcium SerPl-mCnc 8.6 mg/dL Below low normal 09/02/2024 8.7 - 10.5 HHCCT BUN/Creat SerPl 17.0 Ratio Normal 09/02/2024 10 - 25 HH CCT Glucose SerPl-mCnc 113.0 mg/dL Above high normal 09/02/2024 65 - 99 HHCCT Potassium SerPl-sCnc 4.9 mmol/L Normal 09/02/2024 3.4 - 5.3 HHCCT Phosphate SerPl-mCnc 3.4 mg/dL Normal 09/02/2024 2.7 - 4.5 HHCCT POC Glucose 87.0 mg/dL Normal 09/01/2024 65 - 99 HHCCT POC Glucose 126.0 mg/dL Above high normal 09/01/2024 65 - 99 HHCCT POC Glucose 161.0 mg/dL Above high normal 09/01/2024 65 - 99 HHCCT POC Glucose 166.0 mg/dL Above high normal 09/01/2024 65 - 99 HHCCT Magnesium SerPl-mCnc 1.9 mg/dL Normal 09/01/2024 1.6 - 2.7 HHCCT BUN SerPl-mCnc 47.0 mg/dL Above high normal 09/01/2024 8 - 2 1 HHCCT Potassium SerPl-sCnc 4.6 mmol/L Normal 09/01/2024 3.4 - 5.3 HHCCT BUN/Creat SerPl 15.0 Ratio Normal 09/01/2024 10 - 25 HH CCT Creat SerPl-mCnc 3.1 mg/dL Above high normal 09/01/2024 0.5 - 1.3 HHCCT Sodium SerPl-sCnc 137.0 mmol/L Normal 09/01/2024 136 - 14 5 HHCCT Anion Gap Bld-sCnc 9.0 Normal 09/01/2024 7 - 17 HHCCT Chloride SerPl-sCnc 107.0 mmol/L Normal 09/01/2024 98 - 1 07 HHCCT GFR/BSA.pred SerPlBld HAJ-VVF-VpRJyn 20.0 Below low normal 09/01/2024 59 - HHCCT CO2 SerPl-sCnc 21.0 mmol/L Below low normal 09/01/2024 22 - 33 HHCCT Glucose SerPl-mCnc 113.0 mg/dL Above high normal 09/01/2024 65 - 99 HHCCT Calcium SerPl-mCnc 8.6 mg/dL Below low normal 09/01/2024 8.7 - 10.5 HHCCT Phosphate SerPl-mCnc 3.2 mg/dL Normal 09/01/2024 2.7 - 4.5 HHCCT POC Glucose 118.0 mg/dL Above high normal 09/01/2024 65 - 99 HHCCT POC Glucose 83.0 mg/dL Normal 08/31/2024 65 - 99 HHCCT POC Glucose 217.0 mg/dL Above high normal 08/31/2024 65 - 99 HHCCT POC Glucose 161.0 mg/dL Above high normal 08/31/2024 65 - 99 HHCCT Glucose SerPl-mCnc 124.0 mg/dL Above high normal 08/31/2024 65 - 99 HHCCT Creat SerPl-mCnc 3.3 mg/dL Above high normal 08/31/2024 0.5 - 1.3 HHCCT Potassium SerPl-sCnc 4.9 mmol/L Normal 08/31/2024 3.4 - 5.3 HHCCT CO2 SerPl-sCnc 22.0 mmol/L Normal 08/31/2024 22 - 33 HH CCT GFR/BSA.pred SerPlBld YVI-YGT-AsNElq 19.0 Below low normal 08/31/2024 59 - HHCCT Sodium SerPl-sCnc 138.0 mmol/L Normal 08/31/2024 136 - 14 5 HHCCT Chloride SerPl-sCnc 107.0 mmol/L Normal 08/31/2024 98 - 1 07 HHCCT Calcium SerPl-mCnc 8.7 mg/dL Normal 08/31/2024 8.7 - 10.5 HHCCT BUN/Creat SerPl 16.0 Ratio Normal 08/31/2024 10 - 25 HH CCT Anion Gap Bld-sCnc 9.0 Normal 08/31/2024 7 - 17 HHCCT BUN SerPl-mCnc 52.0 mg/dL Above high normal 08/31/2024 8 - 2 1 HHCCT Phosphate SerPl-mCnc 3.4 mg/dL Normal 08/31/2024 2.7 - 4.5 HHCCT Magnesium SerPl-mCnc 2.0 mg/dL Normal 08/31/2024 1.6 - 2.7 HHCCT POC Glucose 119.0 mg/dL Above high normal 08/31/2024 65 - 99 HHCCT POC Glucose 90.0 mg/dL Normal 08/30/2024 65 - 99 HHCCT POC Glucose 186.0 mg/dL Above high normal 08/30/2024 65 - 99 HHCCT POC Glucose 154.0 mg/dL Above high normal 08/30/2024 65 - 99 HHCCT Anion Gap Bld-sCnc 11.0 Normal 08/30/2024 7 - 17 HHCCT Calcium SerPl-mCnc 8.7 mg/dL Normal 08/30/2024 8.7 - 10.5 HHCCT BUN/Creat SerPl 17.0 Ratio Normal 08/30/2024 10 - 25 HH CCT GFR/BSA.pred SerPlBld EGD-FPH-IaTNpe 18.0 Below low normal 08/30/2024 59 - HHCCT Potassium SerPl-sCnc 4.6 mmol/L Normal 08/30/2024 3.4 - 5.3 HHCCT Chloride SerPl-sCnc 105.0 mmol/L Normal 08/30/2024 98 - 1 07 HHCCT Creat SerPl-mCnc 3.4 mg/dL Above high normal 08/30/2024 0.5 - 1.3 HHCCT BUN SerPl-mCnc 58.0 mg/dL Above high normal 08/30/2024 8 - 2 1 HHCCT Glucose SerPl-mCnc 114.0 mg/dL Above high normal 08/30/2024 65 - 99 HHCCT Sodium SerPl-sCnc 137.0 mmol/L Normal 08/30/2024 136 - 14 5 HHCCT CO2 SerPl-sCnc 21.0 mmol/L Below low normal 08/30/2024 22 - 33 HHCCT Magnesium SerPl-mCnc 2.0 mg/dL Normal 08/30/2024 1.6 - 2.7 HHCCT POC Glucose 207.0 mg/dL Above high normal 08/30/2024 65 - 99 HHCCT POC Glucose 205.0 mg/dL Above high normal 08/30/2024 65 - 99 HHCCT POC Glucose 101.0 mg/dL Above high normal 08/29/2024 65 - 99 HHCCT POC Glucose 234.0 mg/dL Above high normal 08/29/2024 65 - 99 HHCCT POC Glucose 160.0 mg/dL Above high normal 08/29/2024 65 - 99 HHCCT Phosphate SerPl-mCnc 3.2 mg/dL Normal 08/29/2024 2.7 - 4.5 HHCCT Glucose SerPl-mCnc 109.0 mg/dL Above high normal 08/29/2024 65 - 99 HHCCT CO2 SerPl-sCnc 21.0 mmol/L Below low normal 08/29/2024 22 - 33 HHCCT BUN/Creat SerPl 18.0 Ratio Normal 08/29/2024 10 - 25 HH CCT Chloride SerPl-sCnc 104.0 mmol/L Normal 08/29/2024 98 - 1 07 HHCCT Sodium SerPl-sCnc 136.0 mmol/L Normal 08/29/2024 136 - 14 5 HHCCT GFR/BSA.pred SerPlBld BLR-OCG-NtXEgu 18.0 Below low normal 08/29/2024 59 - HHCCT Calcium SerPl-mCnc 8.6 mg/dL Below low normal 08/29/2024 8.7 - 10.5 HHCCT Anion Gap Bld-sCnc 11.0 Normal 08/29/2024 7 - 17 HHCCT Creat SerPl-mCnc 3.4 mg/dL Above high normal 08/29/2024 0.5 - 1.3 HHCCT BUN SerPl-mCnc 61.0 mg/dL Above high normal 08/29/2024 8 - 2 1 HHCCT Potassium SerPl-sCnc 5.1 mmol/L Normal 08/29/2024 3.4 - 5.3 HHCCT Magnesium SerPl-mCnc 2.1 mg/dL Normal 08/29/2024 1.6 - 2.7 HHCCT POC Glucose 130.0 mg/dL Above high normal 08/29/2024 65 - 99 HHCCT POC Glucose 116.0 mg/dL Above high normal 08/28/2024 65 - 99 HHCCT POC Glucose 246.0 mg/dL Above high normal 08/28/2024 65 - 99 HHCCT POC Glucose 167.0 mg/dL Above high normal 08/28/2024 65 - 99 HHCCT Magnesium SerPl-mCnc 2.1 mg/dL Normal 08/28/2024 1.6 - 2.7 HHCCT Phosphate SerPl-mCnc 3.1 mg/dL Normal 08/28/2024 2.7 - 4.5 HHCCT BUN SerPl-mCnc 66.0 mg/dL Above high normal 08/28/2024 8 - 2 1 HHCCT BUN/Creat SerPl 18.0 Ratio Normal 08/28/2024 10 - 25 HH CCT Sodium SerPl-sCnc 135.0 mmol/L Below low normal 08/28/2024 1 36 - 145 HHCCT Calcium SerPl-mCnc 8.7 mg/dL Normal 08/28/2024 8.7 - 10.5 HHCCT Glucose SerPl-mCnc 130.0 mg/dL Above high normal 08/28/2024 65 - 99 HHCCT Potassium SerPl-sCnc 4.9 mmol/L Normal 08/28/2024 3.4 - 5.3 HHCCT Anion Gap Bld-sCnc 11.0 Normal 08/28/2024 7 - 17 HHCCT GFR/BSA.pred SerPlBld QVP-ERP-EjQVjv 16.0 Below low normal 08/28/2024 59 - HHCCT Creat SerPl-mCnc 3.7 mg/dL Above high normal 08/28/2024 0.5 - 1.3 HHCCT CO2 SerPl-sCnc 22.0 mmol/L Normal 08/28/2024 22 - 33 HH CCT Chloride SerPl-sCnc 102.0 mmol/L Normal 08/28/2024 98 - 1 07 HHCCT POC Glucose 82.0 mg/dL Normal 08/27/2024 65 - 99 HHCCT POC Glucose 165.0 mg/dL Above high normal 08/27/2024 65 - 99 HHCCT Magnesium SerPl-mCnc 1.9 mg/dL Normal 08/27/2024 1.6 - 2.7 HHCCT Sodium SerPl-sCnc 135.0 mmol/L Below low normal 08/27/2024 1 36 - 145 HHCCT Potassium SerPl-sCnc 4.6 mmol/L Normal 08/27/2024 3.4 - 5.3 HHCCT Calcium SerPl-mCnc 8.8 mg/dL Normal 08/27/2024 8.7 - 10.5 HHCCT GFR/BSA.pred SerPlBld IFL-JRQ-PxBDqp 16.0 Below low normal 08/27/2024 59 - HHCCT Anion Gap Bld-sCnc 11.0 Normal 08/27/2024 7 - 17 HHCCT CO2 SerPl-sCnc 22.0 mmol/L Normal 08/27/2024 22 - 33 HH CCT Glucose SerPl-mCnc 173.0 mg/dL Above high normal 08/27/2024 65 - 99 HHCCT Creat SerPl-mCnc 3.8 mg/dL Above high normal 08/27/2024 0.5 - 1.3 HHCCT Chloride SerPl-sCnc 102.0 mmol/L Normal 08/27/2024 98 - 1 07 HHCCT BUN SerPl-mCnc 69.0 mg/dL Above high normal 08/27/2024 8 - 2 1 HHCCT BUN/Creat SerPl 18.0 Ratio Normal 08/27/2024 10 - 25 HH CCT Phosphate SerPl-mCnc 2.7 mg/dL Normal 08/27/2024 2.7 - 4.5 HHCCT POC Glucose 284.0 mg/dL Above high normal 08/27/2024 65 - 99 HHCCT POC Glucose 150.0 mg/dL Above high normal 08/27/2024 65 - 99 HHCCT POC Glucose 113.0 mg/dL Above high normal 08/27/2024 65 - 99 HHCCT POC Glucose 225.0 mg/dL Above high normal 08/26/2024 65 - 99 HHCCT POC Glucose 248.0 mg/dL Above high normal 08/26/2024 65 - 99 HHCCT POC Glucose 161.0 mg/dL Above high normal 08/26/2024 65 - 99 HHCCT GFR/BSA.pred SerPlBld LJU-XWE-IdWGjf 17.0 Below low normal 08/26/2024 59 - HHCCT Sodium SerPl-sCnc 134.0 mmol/L Below low normal 08/26/2024 1 36 - 145 HHCCT Creat SerPl-mCnc 3.6 mg/dL Above high normal 08/26/2024 0.5 - 1.3 HHCCT BUN SerPl-mCnc 71.0 mg/dL Above high normal 08/26/2024 8 - 2 1 HHCCT CO2 SerPl-sCnc 22.0 mmol/L Normal 08/26/2024 22 - 33 HH CCT Potassium SerPl-sCnc 4.6 mmol/L Normal 08/26/2024 3.4 - 5.3 HHCCT Glucose SerPl-mCnc 119.0 mg/dL Above high normal 08/26/2024 65 - 99 HHCCT Chloride SerPl-sCnc 100.0 mmol/L Normal 08/26/2024 98 - 1 07 HHCCT Anion Gap Bld-sCnc 12.0 Normal 08/26/2024 7 - 17 HHCCT Calcium SerPl-mCnc 8.6 mg/dL Below low normal 08/26/2024 8.7 - 10.5 HHCCT BUN/Creat SerPl 20.0 Ratio Normal 08/26/2024 10 - 25 HH CCT Phosphate SerPl-mCnc 3.3 mg/dL Normal 08/26/2024 2.7 - 4.5 HHCCT Magnesium SerPl-mCnc 2.0 mg/dL Normal 08/26/2024 1.6 - 2.7 HHCCT POC Glucose 118.0 mg/dL Above high normal 08/26/2024 65 - 99 HHCCT POC Glucose 179.0 mg/dL Above high normal 08/25/2024 65 - 99 HHCCT POC Glucose 253.0 mg/dL Above high normal 08/25/2024 65 - 99 HHCCT POC Glucose 169.0 mg/dL Above high normal 08/25/2024 65 - 99 HHCCT Magnesium SerPl-mCnc 2.1 mg/dL Normal 08/25/2024 1.6 - 2.7 HHCCT Phosphate SerPl-mCnc 3.5 mg/dL Normal 08/25/2024 2.7 - 4.5 HHCCT Creat SerPl-mCnc 3.9 mg/dL Above high normal 08/25/2024 0.5 - 1.3 HHCCT Potassium SerPl-sCnc 4.8 mmol/L Normal 08/25/2024 3.4 - 5.3 HHCCT Calcium SerPl-mCnc 8.7 mg/dL Normal 08/25/2024 8.7 - 10.5 HHCCT CO2 SerPl-sCnc 25.0 mmol/L Normal 08/25/2024 22 - 33 HH CCT GFR/BSA.pred SerPlBld YUG-HHB-DcXTii 15.0 Below low normal 08/25/2024 59 - HHCCT Sodium SerPl-sCnc 133.0 mmol/L Below low normal 08/25/2024 1 36 - 145 HHCCT BUN/Creat SerPl 19.0 Ratio Normal 08/25/2024 10 - 25 HH CCT Anion Gap Bld-sCnc 9.0 Normal 08/25/2024 7 - 17 HHCCT Glucose SerPl-mCnc 161.0 mg/dL Above high normal 08/25/2024 65 - 99 HHCCT BUN SerPl-mCnc 74.0 mg/dL Above high normal 08/25/2024 8 - 2 1 HHCCT Chloride SerPl-sCnc 99.0 mmol/L Normal 08/25/2024 98 - 10 7 HHCCT POC Glucose 155.0 mg/dL Above high normal 08/25/2024 65 - 99 HHCCT POC Glucose 143.0 mg/dL Above high normal 08/24/2024 65 - 99 HHCCT POC Glucose 173.0 mg/dL Above high normal 08/24/2024 65 - 99 HHCCT POC Glucose 145.0 mg/dL Above high normal 08/24/2024 65 - 99 HHCCT Phosphate SerPl-mCnc 3.9 mg/dL Normal 08/24/2024 2.7 - 4.5 HHCCT Magnesium SerPl-mCnc 1.9 mg/dL Normal 08/24/2024 1.6 - 2.7 HHCCT Creat SerPl-mCnc 4.0 mg/dL Above high normal 08/24/2024 0.5 - 1.3 HHCCT Potassium SerPl-sCnc 4.5 mmol/L Normal 08/24/2024 3.4 - 5.3 HHCCT GFR/BSA.pred SerPlBld RWI-AYY-HbUSne 15.0 Below low normal 08/24/2024 59 - HHCCT Anion Gap Bld-sCnc 14.0 Normal 08/24/2024 7 - 17 HHCCT Glucose SerPl-mCnc 101.0 mg/dL Above high normal 08/24/2024 65 - 99 HHCCT BUN/Creat SerPl 20.0 Ratio Normal 08/24/2024 10 - 25 HH CCT CO2 SerPl-sCnc 21.0 mmol/L Below low normal 08/24/2024 22 - 33 HHCCT BUN SerPl-mCnc 80.0 mg/dL Above high normal 08/24/2024 8 - 2 1 HHCCT Sodium SerPl-sCnc 132.0 mmol/L Below low normal 08/24/2024 1 36 - 145 HHCCT Calcium SerPl-mCnc 8.3 mg/dL Below low normal 08/24/2024 8.7 - 10.5 HHCCT Chloride SerPl-sCnc 97.0 mmol/L Below low normal 08/24/2024 98 - 107 HHCCT POC Glucose 129.0 mg/dL Above high normal 08/24/2024 65 - 99 HHCCT POC Glucose 144.0 mg/dL Above high normal 08/23/2024 65 - 99 HHCCT POC Glucose 272.0 mg/dL Above high normal 08/23/2024 65 - 99 HHCCT POC Glucose 161.0 mg/dL Above high normal 08/23/2024 65 - 99 HHCCT Magnesium SerPl-mCnc 2.1 mg/dL Normal 08/23/2024 1.6 - 2.7 HHCCT Phosphate SerPl-mCnc 3.6 mg/dL Normal 08/23/2024 2.7 - 4.5 HHCCT Sodium SerPl-sCnc 132.0 mmol/L Below low normal 08/23/2024 1 36 - 145 HHCCT Anion Gap Bld-sCnc 15.0 Normal 08/23/2024 7 - 17 HHCCT BUN SerPl-mCnc 81.0 mg/dL Above high normal 08/23/2024 8 - 2 1 HHCCT GFR/BSA.pred SerPlBld XDN-ATD-QoGGba 14.0 Below low normal 08/23/2024 59 - HHCCT Chloride SerPl-sCnc 95.0 mmol/L Below low normal 08/23/2024 98 - 107 HHCCT CO2 SerPl-sCnc 22.0 mmol/L Normal 08/23/2024 22 - 33 HH CCT Creat SerPl-mCnc 4.2 mg/dL Above high normal 08/23/2024 0.5 - 1.3 HHCCT Calcium SerPl-mCnc 8.4 mg/dL Below low normal 08/23/2024 8.7 - 10.5 HHCCT BUN/Creat SerPl 19.0 Ratio Normal 08/23/2024 10 - 25 HH CCT Potassium SerPl-sCnc 4.5 mmol/L Normal 08/23/2024 3.4 - 5.3 HHCCT Glucose SerPl-mCnc 126.0 mg/dL Above high normal 08/23/2024 65 - 99 HHCCT POC Glucose 182.0 mg/dL Above high normal 08/23/2024 65 - 99 HHCCT POC Glucose 105.0 mg/dL Above high normal 08/22/2024 65 - 99 HHCCT POC Glucose 194.0 mg/dL Above high normal 08/22/2024 65 - 99 HHCCT POC Glucose 177.0 mg/dL Above high normal 08/22/2024 65 - 99 HHCCT Magnesium SerPl-mCnc 2.1 mg/dL Normal 08/22/2024 1.6 - 2.7 HHCCT GFR/BSA.pred SerPlBld DIF-KYX-YlDBtq 13.0 Below low normal 08/22/2024 59 - HHCCT Chloride SerPl-sCnc 94.0 mmol/L Below low normal 08/22/2024 98 - 107 HHCCT Sodium SerPl-sCnc 131.0 mmol/L Below low normal 08/22/2024 1 36 - 145 HHCCT Calcium SerPl-mCnc 8.5 mg/dL Below low normal 08/22/2024 8.7 - 10.5 HHCCT Anion Gap Bld-sCnc 15.0 Normal 08/22/2024 7 - 17 HHCCT BUN/Creat SerPl 18.0 Ratio Normal 08/22/2024 10 - 25 HH CCT Potassium SerPl-sCnc 4.3 mmol/L Normal 08/22/2024 3.4 - 5.3 HHCCT Creat SerPl-mCnc 4.4 mg/dL Above high normal 08/22/2024 0.5 - 1.3 HHCCT BUN SerPl-mCnc 78.0 mg/dL Above high normal 08/22/2024 8 - 2 1 HHCCT Glucose SerPl-mCnc 138.0 mg/dL Above high normal 08/22/2024 65 - 99 HHCCT CO2 SerPl-sCnc 22.0 mmol/L Normal 08/22/2024 22 - 33 HH CCT Phosphate SerPl-mCnc 3.8 mg/dL Normal 08/22/2024 2.7 - 4.5 HHCCT POC Glucose 189.0 mg/dL Above high normal 08/22/2024 65 - 99 HHCCT POC Glucose 247.0 mg/dL Above high normal 08/21/2024 65 - 99 HHCCT POC Glucose 194.0 mg/dL Above high normal 08/21/2024 65 - 99 HHCCT POC Glucose 210.0 mg/dL Above high normal 08/21/2024 65 - 99 HHCCT POC Glucose 183.0 mg/dL Above high normal 08/21/2024 65 - 99 HHCCT Phosphate SerPl-mCnc 3.9 mg/dL Normal 08/21/2024 2.7 - 4.5 HHCCT Magnesium SerPl-mCnc 2.2 mg/dL Normal 08/21/2024 1.6 - 2.7 HHCCT Chloride SerPl-sCnc 93.0 mmol/L Below low normal 08/21/2024 98 - 107 HHCCT Glucose SerPl-mCnc 139.0 mg/dL Above high normal 08/21/2024 65 - 99 HHCCT BUN SerPl-mCnc 85.0 mg/dL Above high normal 08/21/2024 8 - 2 1 HHCCT Anion Gap Bld-sCnc 15.0 Normal 08/21/2024 7 - 17 HHCCT Creat SerPl-mCnc 4.9 mg/dL Above high normal 08/21/2024 0.5 - 1.3 HHCCT Calcium SerPl-mCnc 8.4 mg/dL Below low normal 08/21/2024 8.7 - 10.5 HHCCT Potassium SerPl-sCnc 4.4 mmol/L Normal 08/21/2024 3.4 - 5.3 HHCCT Sodium SerPl-sCnc 132.0 mmol/L Below low normal 08/21/2024 1 36 - 145 HHCCT BUN/Creat SerPl 17.0 Ratio Normal 08/21/2024 10 - 25 HH CCT GFR/BSA.pred SerPlBld YYL-UTZ-GdKCye 12.0 Below low normal 08/21/2024 59 - HHCCT CO2 SerPl-sCnc 24.0 mmol/L Normal 08/21/2024 22 - 33 HH CCT MCV RBC Auto 90.0 fL Normal 08/21/2024 80 - 100 HHCCT Platelet num Bld Auto 393.0 Thou/uL Normal 08/21/2024 150 - 450 HHCCT RDW RBC Auto-Rto 13.2 % Normal 08/21/2024 11.5 - 14.5 HHCCT Hct VFr Bld Auto 30.4 % Below low normal 08/21/2024 39 - 54 HHCCT MCH RBC Qn Auto 29.6 pg Normal 08/21/2024 27 - [address] WBC num Bld Auto 12.1 Thou/uL Above high normal 08/21/2024 4 - 11 HHCCT MCHC RBC Auto-mCnc 32.9 g/dL Normal 08/21/2024 30 - 36 HHCCT PMV Bld Auto 9.4 fL Normal 08/21/2024 7.5 - 12.5 HHCCT Hgb Bld-mCnc 10.0 g/dL Below low normal 08/21/2024 13 - 17.7 HHCCT RBC num Bld Auto 3.38 Mil/uL Below low normal 08/21/2024 4.5 - 6.2 HHCCT POC Glucose 157.0 mg/dL Above high normal 08/21/2024 65 - 99 HHCCT POC Glucose 197.0 mg/dL Above high normal 08/20/2024 65 - 99 HHCCT POC Glucose 176.0 mg/dL Above high normal 08/20/2024 65 - 99 HHCCT POC Glucose 245.0 mg/dL Above high normal 08/20/2024 65 - 99 HHCCT POC Glucose 246.0 mg/dL Above high normal 08/20/2024 65 - 99 HHCCT POC Glucose 199.0 mg/dL Above high normal 08/20/2024 65 - 99 HHCCT POC Glucose 162.0 mg/dL Above high normal 08/20/2024 65 - 99 HHCCT Phosphate SerPl-mCnc 4.0 mg/dL Normal 08/20/2024 2.7 - 4.5 HHCCT Magnesium SerPl-mCnc 2.2 mg/dL Normal 08/20/2024 1.6 - 2.7 HHCCT Creat SerPl-mCnc 5.2 mg/dL Above high normal 08/20/2024 0.5 - 1.3 HHCCT Anion Gap Bld-sCnc 15.0 Normal 08/20/2024 7 - 17 HHCCT Calcium SerPl-mCnc 8.1 mg/dL Below low normal 08/20/2024 8.7 - 10.5 HHCCT CO2 SerPl-sCnc 23.0 mmol/L Normal 08/20/2024 22 - 33 HH CCT BUN SerPl-mCnc 87.0 mg/dL Above high normal 08/20/2024 8 - 2 1 HHCCT GFR/BSA.pred SerPlBld TPS-RNH-UwOClp 11.0 Below low normal 08/20/2024 59 - HHCCT Chloride SerPl-sCnc 93.0 mmol/L Below low normal 08/20/2024 98 - 107 HHCCT Potassium SerPl-sCnc 4.0 mmol/L Normal 08/20/2024 3.4 - 5.3 HHCCT Sodium SerPl-sCnc 131.0 mmol/L Below low normal 08/20/2024 1 36 - 145 HHCCT BUN/Creat SerPl 17.0 Ratio Normal 08/20/2024 10 - 25 HH CCT Glucose SerPl-mCnc 159.0 mg/dL Above high normal 08/20/2024 65 - 99 HHCCT POC Glucose 188.0 mg/dL Above high normal 08/20/2024 65 - 99 HHCCT POC Glucose 214.0 mg/dL Above high normal 08/20/2024 65 - 99 HHCCT POC Glucose 197.0 mg/dL Above high normal 08/19/2024 65 - 99 HHCCT POC Glucose 186.0 mg/dL Above high normal 08/19/2024 65 - 99 HHCCT POC Glucose 141.0 mg/dL Above high normal 08/19/2024 65 - 99 HHCCT Magnesium SerPl-mCnc 2.3 mg/dL Normal 08/19/2024 1.6 - 2.7 HHCCT Glucose SerPl-mCnc 146.0 mg/dL Above high normal 08/19/2024 65 - 99 HHCCT GFR/BSA.pred SerPlBld ZVJ-GAI-NeUGmc 10.0 Below low normal 08/19/2024 59 - HHCCT Chloride SerPl-sCnc 92.0 mmol/L Below low normal 08/19/2024 98 - 107 HHCCT Calcium SerPl-mCnc 8.1 mg/dL Below low normal 08/19/2024 8.7 - 10.5 HHCCT BUN SerPl-mCnc 86.0 mg/dL Above high normal 08/19/2024 8 - 2 1 HHCCT CO2 SerPl-sCnc 23.0 mmol/L Normal 08/19/2024 22 - 33 HH CCT Potassium SerPl-sCnc 4.3 mmol/L Normal 08/19/2024 3.4 - 5.3 HHCCT Sodium SerPl-sCnc 129.0 mmol/L Below low normal 08/19/2024 1 36 - 145 HHCCT Creat SerPl-mCnc 5.4 mg/dL Above high normal 08/19/2024 0.5 - 1.3 HHCCT Anion Gap Bld-sCnc 14.0 Normal 08/19/2024 7 - 17 HHCCT BUN/Creat SerPl 16.0 Ratio Normal 08/19/2024 10 - 25 HH CCT Phosphate SerPl-mCnc 4.4 mg/dL Normal 08/19/2024 2.7 - 4.5 HHCCT POC Glucose 167.0 mg/dL Above high normal 08/19/2024 65 - 99 HHCCT POC Glucose 157.0 mg/dL Above high normal 08/19/2024 65 - 99 HHCCT POC Glucose 176.0 mg/dL Above high normal 08/18/2024 65 - 99 HHCCT Glucose SerPl-mCnc 173.0 mg/dL Above high normal 08/18/2024 65 - 99 HHCCT Anion Gap Bld-sCnc 13.0 Normal 08/18/2024 7 - 17 HHCCT BUN/Creat SerPl 16.0 Ratio Normal 08/18/2024 10 - 25 HH CCT Calcium SerPl-mCnc 8.3 mg/dL Below low normal 08/18/2024 8.7 - 10.5 HHCCT Potassium SerPl-sCnc 4.2 mmol/L Normal 08/18/2024 3.4 - 5.3 HHCCT Chloride SerPl-sCnc 93.0 mmol/L Below low normal 08/18/2024 98 - 107 HHCCT Creat SerPl-mCnc 5.2 mg/dL Above high normal 08/18/2024 0.5 - 1.3 HHCCT GFR/BSA.pred SerPlBld AVF-TVK-QzCWsb 11.0 Below low normal 08/18/2024 59 - HHCCT CO2 SerPl-sCnc 24.0 mmol/L Normal 08/18/2024 22 - 33 HH CCT Sodium SerPl-sCnc 130.0 mmol/L Below low normal 08/18/2024 1 36 - 145 HHCCT BUN SerPl-mCnc 81.0 mg/dL Above high normal 08/18/2024 8 - 2 1 HHCCT POC Glucose 205.0 mg/dL Above high normal 08/18/2024 65 - 99 HHCCT POC Glucose 151.0 mg/dL Above high normal 08/18/2024 65 - 99 HHCCT CO2 SerPl-sCnc 25.0 mmol/L Normal 08/18/2024 22 - 33 HH CCT Glucose SerPl-mCnc 174.0 mg/dL Above high normal 08/18/2024 65 - 99 HHCCT Calcium SerPl-mCnc 8.3 mg/dL Below low normal 08/18/2024 8.7 - 10.5 HHCCT Potassium SerPl-sCnc 4.3 mmol/L Normal 08/18/2024 3.4 - 5.3 HHCCT BUN/Creat SerPl 15.0 Ratio Normal 08/18/2024 10 - 25 HH CCT Creat SerPl-mCnc 5.2 mg/dL Above high normal 08/18/2024 0.5 - 1.3 HHCCT Sodium SerPl-sCnc 134.0 mmol/L Below low normal 08/18/2024 1 36 - 145 HHCCT Chloride SerPl-sCnc 97.0 mmol/L Below low normal 08/18/2024 98 - 107 HHCCT BUN SerPl-mCnc 77.0 mg/dL Above high normal 08/18/2024 8 - 2 1 HHCCT GFR/BSA.pred SerPlBld [id number] 11.0 Below low normal 08/18/2024 59 - HHCCT Anion Gap Bld-sCnc 12.0 Normal 08/18/2024 7 - 17 HHCCT Hct VFr Bld Auto 26.4 % Below low normal 08/18/2024 39 - 54 HHCCT Hgb Bld-mCnc 8.8 g/dL Below low normal 08/18/2024 13 - 17.7 HHCCT SaO2 % BldV from pO2 55.3 % Normal 08/18/[address] VFr BldV Calc 2.9 mL/dL Below low normal 08/18/2024 7. 2 - 17.2 HHCCT Hgb Bld-mCnc 5.4 g/dL Below low normal 08/18/2024 13 - 17.7 HHCCT MetHgb MFr Bld 0.8 % Normal 08/18/2024 0.4 - 1.5 HHCC T COHgb MFr Bld 1.4 % Normal 08/18/2024 0 - 2 HHCCT POC Glucose 188.0 mg/dL Above high normal 08/18/2024 65 - 99 HHCCT CO2 SerPl-sCnc 22.0 mmol/L Normal 08/17/2024 22 - 33 HH CCT BUN SerPl-mCnc 73.0 mg/dL Above high normal 08/17/2024 8 - 2 1 HHCCT Glucose SerPl-mCnc 173.0 mg/dL Above high normal 08/17/2024 65 - 99 HHCCT BUN/Creat SerPl 16.0 Ratio Normal 08/17/2024 10 - 25 HH CCT Creat SerPl-mCnc 4.6 mg/dL Above high normal 08/17/2024 0.5 - 1.3 HHCCT Calcium SerPl-mCnc 7.8 mg/dL Below low normal 08/17/2024 8.7 - 10.5 HHCCT Potassium SerPl-sCnc 4.1 mmol/L Normal 08/17/2024 3.4 - 5.3 HHCCT GFR/BSA.pred SerPlBld [id number] 12.0 Below low normal 08/17/2024 59 - HHCCT Chloride SerPl-sCnc 99.0 mmol/L Normal 08/17/2024 98 - 10 7 HHCCT Sodium SerPl-sCnc 134.0 mmol/L Below low normal 08/17/2024 1 36 - 145 HHCCT Anion Gap Bld-sCnc 13.0 Normal 08/17/2024 7 - [address] VFr BldV Calc 7.8 mL/dL Normal 08/17/2024 7.2 - 17. 2 HHCCT COHgb MFr Bld 1.7 % Normal 08/17/2024 0 - 2 HHCCT MetHgb MFr Bld 0.8 % Normal 08/17/2024 0.4 - 1.5 HHCC T Hgb Bld-mCnc 7.9 g/dL Below low normal 08/17/2024 13 - 17.7 HHCCT SaO2 % BldV from pO2 71.6 % Normal 08/17/2024 HHCCT POC Glucose 188.0 mg/dL Above high normal 08/17/2024 65 - 99 HHCCT MetHgb MFr Bld 0.9 % Normal 08/17/2024 0.4 - 1.5 HHCC T SaO2 % BldV from pO2 63.6 % Normal 08/17/2024 HHCCT Hgb Bld-mCnc 5.0 g/dL Below low normal 08/17/2024 13 - 17.[address] VFr BldV Calc 3.1 mL/dL Below low normal 08/17/2024 7. 2 - 17.2 HHCCT COHgb MFr Bld 1.5 % Normal 08/17/2024 0 - 2 HHCCT POC Glucose 155.0 mg/dL Above high normal 08/17/2024 65 - 99 HHCCT POC Glucose 154.0 mg/dL Above high normal 08/17/2024 65 - 99 HHCCT CO2 SerPl-sCnc 22.0 mmol/L Normal 08/17/2024 22 - 33 HH CCT Anion Gap Bld-sCnc 16.0 Normal 08/17/2024 7 - 17 HHCCT GFR/BSA.pred SerPlBld [id number] 11.0 Below low normal 08/17/2024 59 - HHCCT Sodium SerPl-sCnc 136.0 mmol/L Normal 08/17/2024 136 - 14 5 HHCCT Potassium SerPl-sCnc 4.7 mmol/L Normal 08/17/2024 3.4 - 5.3 HHCCT Creat SerPl-mCnc 5.0 mg/dL Above high normal 08/17/2024 0.5 - 1.3 HHCCT Calcium SerPl-mCnc 8.5 mg/dL Below low normal 08/17/2024 8.7 - 10.5 HHCCT Glucose SerPl-mCnc 146.0 mg/dL Above high normal 08/17/2024 65 - 99 HHCCT BUN SerPl-mCnc 70.0 mg/dL Above high normal 08/17/2024 8 - 2 1 HHCCT Chloride SerPl-sCnc 98.0 mmol/L Normal 08/17/2024 98 - 10 7 HHCCT BUN/Creat SerPl 14.0 Ratio Normal 08/17/2024 10 - 25 HH CCT Hct VFr Bld Auto 25.3 % Below low normal 08/17/2024 39 - 54 HHCCT MCHC RBC Auto-mCnc 33.6 g/dL Normal 08/17/2024 30 - 36 HHCCT MCH RBC Qn Auto 29.8 pg Normal 08/17/2024 27 - [address] WBC num Bld Auto 14.7 Thou/uL Above high normal 08/17/2024 4 - 11 HHCCT Platelet num Bld Auto 149.0 Thou/uL Below low normal 08/17/2024 150 - 450 HHCCT Hgb Bld-mCnc 8.5 g/dL Below low normal 08/17/2024 13 - 17.7 HHCCT RDW RBC Auto-Rto 13.9 % Normal 08/17/2024 11.5 - 14.5 HHCCT RBC num Bld Auto 2.85 Mil/uL Below low normal 08/17/2024 4.5 - 6.2 HHCCT PMV Bld Auto 10.5 fL Normal 08/17/2024 7.5 - 12.5 HHCCT MCV RBC Auto 89.0 fL Normal 08/17/2024 80 - 100 HHCCT SaO2 % BldV from pO2 64.5 % Normal 08/17/2024 HHCCT MetHgb MFr Bld 0.8 % Normal 08/17/2024 0.4 - 1.5 HHCC T Hgb Bld-mCnc 5.4 g/dL Below low normal 08/17/2024 13 - 17.7 HHCCT COHgb MFr Bld 1.6 % Normal 08/17/2024 0 - [address] VFr BldV Calc 3.4 mL/dL Below low normal 08/17/2024 7. 2 - 17.2 HHCCT Hgb Bld-mCnc 8.6 g/dL Below low normal 08/17/2024 13 - 17.7 HHCCT Hct VFr Bld Auto 26.3 % Below low normal 08/17/2024 39 - 54 HHCCT POC Glucose 168.0 mg/dL Above high normal 08/17/2024 65 - 99 HHCCT Anion Gap Bld-sCnc 16.0 Normal 08/16/2024 7 - 17 HHCCT Calcium SerPl-mCnc 8.6 mg/dL Below low normal 08/16/2024 8.7 - 10.5 HHCCT BUN SerPl-mCnc 70.0 mg/dL Above high normal 08/16/2024 8 - 2 1 HHCCT Sodium SerPl-sCnc 134.0 mmol/L Below low normal 08/16/2024 1 36 - 145 HHCCT Chloride SerPl-sCnc 98.0 mmol/L Normal 08/16/2024 98 - 10 7 HHCCT Glucose SerPl-mCnc 150.0 mg/dL Above high normal 08/16/2024 65 - 99 HHCCT BUN/Creat SerPl 15.0 Ratio Normal 08/16/2024 10 - 25 HH CCT Potassium SerPl-sCnc 4.6 mmol/L Normal 08/16/2024 3.4 - 5.3 HHCCT CO2 SerPl-sCnc 20.0 mmol/L Below low normal 08/16/2024 22 - 33 HHCCT GFR/BSA.pred SerPlBld [id number]-[id number] 12.0 Below low normal 08/16/2024 59 - HHCCT Creat SerPl-mCnc 4.7 mg/dL Above high normal 08/16/2024 0.5 - 1.3 HHCCT Anion Gap Bld-sCnc Specimen hemolyzed. Test not performed. Normal 08/16/2024 7 - 17 HHCCT BUN/Creat SerPl Specimen hemolyzed. Test not performed. Normal 08/16/2024 10 - 25 HHCCT BUN SerPl-mCnc Specimen hemolyzed. Test not performed. Normal 08/16/2024 8 - 21 HHCCT GFR/BSA.pred SerPlBld [id number] Specimen hemolyzed. Test not performed. Normal 08/16/2024 59 - HHCCT Calcium SerPl-mCnc Specimen hemolyzed. Test not performed. Normal 08/16/2024 8.7 - 10.5 HHCCT Glucose SerPl-mCnc Specimen hemolyzed. Test not performed. Normal 08/16/2024 65 - 99 HHCCT Creat SerPl-mCnc Specimen hemolyzed. Test not performed. Normal 08/16/2024 0.5 - 1.3 HHCCT Potassium SerPl-sCnc Specimen hemolyzed. Test not performed. Normal 08/16/2024 3.4 - 5.3 HHCCT CO2 SerPl-sCnc Specimen hemolyzed. Test not performed. Normal 08/16/2024 22 - 33 HHCCT Chloride SerPl-sCnc Specimen hemolyzed. Test not performed. Normal 08/16/2024 98 - 107 HHCCT Sodium SerPl-sCnc Specimen hemolyzed. Test not performed. Normal 08/16/2024 136 - 145 HHCCT POC Glucose 183.0 mg/dL Above high normal 08/16/2024 65 - 99 HHCCT POC Glucose 231.0 mg/dL Above high normal 08/16/2024 65 - 99 HHCCT Potassium SerPl-sCnc 4.8 mmol/L Normal 08/16/2024 3.4 - 5.3 HHCCT BUN SerPl-mCnc 69.0 mg/dL Above high normal 08/16/2024 8 - 2 1 HHCCT BUN/Creat SerPl 15.0 Ratio Normal 08/16/2024 10 - 25 HH CCT Sodium SerPl-sCnc 133.0 mmol/L Below low normal 08/16/2024 1 36 - 145 HHCCT GFR/BSA.pred SerPlBld [id number]-[id number] 12.0 Below low normal 08/16/2024 59 - HHCCT Creat SerPl-mCnc 4.7 mg/dL Above high normal 08/16/2024 0.5 - 1.3 HHCCT Chloride SerPl-sCnc 99.0 mmol/L Normal 08/16/2024 98 - 10 7 HHCCT Anion Gap Bld-sCnc 13.0 Normal 08/16/2024 7 - 17 HHCCT Glucose SerPl-mCnc 192.0 mg/dL Above high normal 08/16/2024 65 - 99 HHCCT Calcium SerPl-mCnc 8.5 mg/dL Below low normal 08/16/2024 8.7 - 10.5 HHCCT CO2 SerPl-sCnc 21.0 mmol/L Below low normal 08/16/2024 22 - 33 HHCCT Hgb Bld-mCnc 8.9 g/dL Below low normal 08/16/2024 13 - 17.7 HHCCT Hct VFr Bld Auto 26.3 % Below low normal 08/16/2024 39 - 54 HHCCT POC Glucose 215.0 mg/dL Above high normal 08/16/2024 65 - 99 HHCCT Creat SerPl-mCnc 4.5 mg/dL Above high normal 08/16/2024 0.5 - 1.3 HHCCT BUN SerPl-mCnc 67.0 mg/dL Above high normal 08/16/2024 8 - 2 1 HHCCT GFR/BSA.pred SerPlBld [id number] 13.0 Below low normal 08/16/2024 59 - HHCCT Glucose SerPl-mCnc 189.0 mg/dL Above high normal 08/16/2024 65 - 99 HHCCT Sodium SerPl-sCnc 134.0 mmol/L Below low normal 08/16/2024 1 36 - 145 HHCCT Chloride SerPl-sCnc 99.0 mmol/L Normal 08/16/2024 98 - 10 7 HHCCT BUN/Creat SerPl 15.0 Ratio Normal 08/16/2024 10 - 25 HH CCT Calcium SerPl-mCnc 8.3 mg/dL Below low normal 08/16/2024 8.7 - 10.5 HHCCT Anion Gap Bld-sCnc 15.0 Normal 08/16/2024 7 - 17 HHCCT Potassium SerPl-sCnc 4.8 mmol/L Normal 08/16/2024 3.4 - 5.3 HHCCT CO2 SerPl-sCnc 20.0 mmol/L Below low normal 08/16/2024 22 - 33 HHCCT Lactate SerPl-sCnc 0.9 mmol/L Normal 08/16/2024 0.5 - 1.9 HHCCT Magnesium SerPl-mCnc 2.6 mg/dL Normal 08/16/2024 1.6 - 2.7 HHCCT Prot SerPl-mCnc 5.5 g/dL Below low normal 08/16/2024 6.3 - 8.3 HHCCT Bilirub Direct SerPl-mCnc 0.3 mg/dL Above high normal 08/16/2024 0 - 0.2 HHCCT Bilirub SerPl-mCnc 0.5 mg/dL Normal 08/16/2024 0.2 - 1 HHCCT Albumin SerPl-mCnc 2.5 g/dL Below low normal 08/16/2024 3.4 - 4.8 HHCCT Albumin/Glob SerPl 0.8 Ratio Below low normal 08/16/2024 1 - 3 HHCCT AST SerPl-cCnc 51.0 U/L Normal 08/16/2024 10 - 55 HHCC T Globulin Ser Calc-mCnc 3.0 g/dL Normal 08/16/2024 1.5 - 3.9 HHCCT ALP SerPl-cCnc 72.0 U/L Normal 08/16/2024 45 - 128 HHCC T ALT SerPl-cCnc 8.0 U/L Below low normal 08/16/2024 10 - 55 HHCCT Phosphate SerPl-mCnc 5.0 mg/dL Above high normal 08/16/2024 2.7 - 4.5 HHCCT Glucose SerPl-mCnc 191.0 mg/dL Above high normal 08/16/2024 65 - 99 HHCCT Creat SerPl-mCnc 4.4 mg/dL Above high normal 08/16/2024 0.5 - 1.3 HHCCT Sodium SerPl-sCnc 131.0 mmol/L Below low normal 08/16/2024 1 36 - 145 HHCCT BUN SerPl-mCnc 65.0 mg/dL Above high normal 08/16/2024 8 - 2 1 HHCCT Chloride SerPl-sCnc 99.0 mmol/L Normal 08/16/2024 98 - 10 7 HHCCT CO2 SerPl-sCnc 20.0 mmol/L Below low normal 08/16/2024 22 - 33 HHCCT BUN/Creat SerPl 15.0 Ratio Normal 08/16/2024 10 - 25 HH CCT Anion Gap Bld-sCnc 12.0 Normal 08/16/2024 7 - 17 HHCCT Calcium SerPl-mCnc 8.3 mg/dL Below low normal 08/16/2024 8.7 - 10.5 HHCCT Potassium SerPl-sCnc 4.7 mmol/L Normal 08/16/2024 3.4 - 5.3 HHCCT GFR/BSA.pred SerPlBld JMX-YDZ-VzAAuq 13.0 Below low normal 08/16/2024 59 - HHCCT O2 Ct VFr BldV Calc 3.2 mL/dL Below low normal 08/16/2024 7. 2 - 17.2 HHCCT COHgb MFr Bld 1.6 % Normal 08/16/2024 0 - 2 HHCCT Hgb Bld-mCnc 4.5 g/dL Below low normal 08/16/2024 13 - 17.7 HHCCT MetHgb MFr Bld 0.9 % Normal 08/16/2024 0.4 - 1.5 HHCC T SaO2 % BldV from pO2 72.6 % Normal 08/16/2024 HHCCT RDW RBC Auto-Rto 14.1 % Normal 08/16/2024 11.5 - 14.5 HHCCT PMV Bld Auto 10.6 fL Normal 08/16/2024 7.5 - 12.5 HHCCT MCH RBC Qn Auto 30.0 pg Normal 08/16/2024 27 - [address] Hct VFr Bld Auto 22.8 % Below low normal 08/16/2024 39 - 54 HHCCT RBC num Bld Auto 2.57 Mil/uL Below low normal 08/16/2024 4.5 - 6.2 HHCCT MCV RBC Auto 89.0 fL Normal 08/16/2024 80 - 100 HHCCT Platelet num Bld Auto 121.0 Thou/uL Below low normal 08/16/2024 150 - 450 HHCCT Hgb Bld-mCnc 7.7 g/dL Below low normal 08/16/2024 13 - 17.7 HHCCT MCHC RBC Auto-mCnc 33.8 g/dL Normal 08/16/2024 30 - 36 HHCCT WBC num Bld Auto 16.3 Thou/uL Above high normal 08/16/2024 4 - 11 HHCCT POC Glucose 223.0 mg/dL Above high normal 08/16/2024 65 - 99 HHCCT Potassium SerPl-sCnc 4.7 mmol/L Normal 08/15/2024 3.4 - 5.3 HHCCT BUN SerPl-mCnc 61.0 mg/dL Above high normal 08/15/2024 8 - 2 1 HHCCT CO2 SerPl-sCnc 22.0 mmol/L Normal 08/15/2024 22 - 33 HH CCT GFR/BSA.pred SerPlBld [id number]-HRE-JtTUed 14.0 Below low normal 08/15/2024 59 - HHCCT Anion Gap Bld-sCnc 15.0 Normal 08/15/2024 7 - 17 HHCCT BUN/Creat SerPl 15.0 Ratio Normal 08/15/2024 10 - 25 HH CCT Calcium SerPl-mCnc 8.4 mg/dL Below low normal 08/15/2024 8.7 - 10.5 HHCCT Creat SerPl-mCnc 4.2 mg/dL Above high normal 08/15/2024 0.5 - 1.3 HHCCT Sodium SerPl-sCnc 137.0 mmol/L Normal 08/15/2024 136 - 14 5 HHCCT Glucose SerPl-mCnc 196.0 mg/dL Above high normal 08/15/2024 65 - 99 HHCCT Chloride SerPl-sCnc 100.0 mmol/L Normal 08/15/2024 98 - 1 07 HHCCT POC Glucose 212.0 mg/dL Above high normal 08/15/2024 65 - 99 HHCCT Hgb Bld-mCnc 8.3 g/dL Below low normal 08/15/2024 13 - 17.7 HHCCT Hct VFr Bld Auto 24.5 % Below low normal 08/15/2024 39 - 54 HHCCT POC Glucose 203.0 mg/dL Above high normal 08/15/2024 65 - 99 HHCCT Potassium SerPl-sCnc 4.8 mmol/L Normal 08/15/2024 3.4 - 5.3 HHCCT Creat SerPl-mCnc 4.1 mg/dL Above high normal 08/15/2024 0.5 - 1.3 HHCCT Chloride SerPl-sCnc 100.0 mmol/L Normal 08/15/2024 98 - 1 07 HHCCT GFR/BSA.pred SerPlBld [id number]-[id number] 14.0 Below low normal 08/15/2024 59 - HHCCT BUN/Creat SerPl 15.0 Ratio Normal 08/15/2024 10 - 25 HH CCT Sodium SerPl-sCnc 134.0 mmol/L Below low normal 08/15/2024 1 36 - 145 HHCCT Glucose SerPl-mCnc 177.0 mg/dL Above high normal 08/15/2024 65 - 99 HHCCT CO2 SerPl-sCnc 21.0 mmol/L Below low normal 08/15/2024 22 - 33 HHCCT Calcium SerPl-mCnc 8.9 mg/dL Normal 08/15/2024 8.7 - 10.5 HHCCT Anion Gap Bld-sCnc 13.0 Normal 08/15/2024 7 - 17 HHCCT BUN SerPl-mCnc 60.0 mg/dL Above high normal 08/15/2024 8 - 2 1 HHCCT Hgb Bld-mCnc 8.5 g/dL Below low normal 08/15/2024 13 - 17.7 HHCCT Hct VFr Bld Auto 25.4 % Below low normal 08/15/2024 39 - 54 HHCCT POC Glucose 198.0 mg/dL Above high normal 08/15/2024 65 - 99 HHCCT Chloride SerPl-sCnc 102.0 mmol/L Normal 08/15/2024 98 - 1 07 HHCCT Glucose SerPl-mCnc 179.0 mg/dL Above high normal 08/15/2024 65 - 99 HHCCT Creat SerPl-mCnc 3.8 mg/dL Above high normal 08/15/2024 0.5 - 1.3 HHCCT Sodium SerPl-sCnc 137.0 mmol/L Normal 08/15/2024 136 - 14 5 HHCCT GFR/BSA.pred SerPlBld [id number]-DkFVyy 16.0 Below low normal 08/15/2024 59 - HHCCT Calcium SerPl-mCnc 8.4 mg/dL Below low normal 08/15/2024 8.7 - 10.5 HHCCT Potassium SerPl-sCnc 5.0 mmol/L Normal 08/15/2024 3.4 - 5.3 HHCCT Anion Gap Bld-sCnc 16.0 Normal 08/15/2024 7 - 17 HHCCT BUN/Creat SerPl 14.0 Ratio Normal 08/15/2024 10 - 25 HH CCT CO2 SerPl-sCnc 19.0 mmol/L Below low normal 08/15/2024 22 - 33 HHCCT BUN SerPl-mCnc 55.0 mg/dL Above high normal 08/15/2024 8 - 2 1 HHCCT Lactate SerPl-sCnc 0.9 mmol/L Normal 08/15/2024 0.5 - 1.9 HHCCT Lactate SerPl-sCnc 1.1 mmol/L Normal 08/15/2024 0.5 - 1.9 HHCCT Phosphate SerPl-mCnc 5.5 mg/dL Above high normal 08/15/2024 2.7 - 4.5 HHCCT BUN/Creat SerPl 15.0 Ratio Normal 08/15/2024 10 - 25 HH CCT GFR/BSA.pred SerPlBld NPQ-NCA-JcAEcs 17.0 Below low normal 08/15/2024 59 - HHCCT Sodium SerPl-sCnc 137.0 mmol/L Normal 08/15/2024 136 - 14 5 HHCCT Creat SerPl-mCnc 3.5 mg/dL Above high normal 08/15/2024 0.5 - 1.3 HHCCT Chloride SerPl-sCnc 103.0 mmol/L Normal 08/15/2024 98 - 1 07 HHCCT Anion Gap Bld-sCnc 17.0 Normal 08/15/2024 7 - 17 HHCCT Calcium SerPl-mCnc 8.2 mg/dL Below low normal 08/15/2024 8.7 - 10.5 HHCCT BUN SerPl-mCnc 54.0 mg/dL Above high normal 08/15/2024 8 - 2 1 HHCCT Glucose SerPl-mCnc 187.0 mg/dL Above high normal 08/15/2024 65 - 99 HHCCT Potassium SerPl-sCnc 5.2 mmol/L Normal 08/15/2024 3.4 - 5.3 HHCCT CO2 SerPl-sCnc 17.0 mmol/L Below low normal 08/15/2024 22 - 33 HHCCT Magnesium SerPl-mCnc 2.9 mg/dL Above high normal 08/15/2024 1.6 - 2.7 HHCCT WBC num Bld Auto 17.9 Thou/uL Above high normal 08/15/2024 4 - 11 HHCCT MCV RBC Auto 88.0 fL Normal 08/15/2024 80 - 100 HHCCT Hgb Bld-mCnc 8.8 g/dL Below low normal 08/15/2024 13 - 17.7 HHCCT RDW RBC Auto-Rto 14.3 % Normal 08/15/2024 11.5 - 14.5 HHCCT MCH RBC Qn Auto 29.8 pg Normal 08/15/2024 27 - [address] MCHC RBC Auto-mCnc 33.8 g/dL Normal 08/15/2024 30 - 36 HHCCT Hct VFr Bld Auto 26.0 % Below low normal 08/15/2024 39 - 54 HHCCT Platelet num Bld Auto 137.0 Thou/uL Below low normal 08/15/2024 150 - 450 HHCCT PMV Bld Auto 10.4 fL Normal 08/15/2024 7.5 - 12.5 HHCCT RBC num Bld Auto 2.95 Mil/uL Below low normal 08/15/2024 4.5 - 6.[address] VFr BldV Calc 3.8 mL/dL Below low normal 08/15/2024 7. 2 - 17.2 HHCCT Hgb Bld-mCnc 5.2 g/dL Below low normal 08/15/2024 13 - 17.7 HHCCT COHgb MFr Bld 1.5 % Normal 08/15/2024 0 - 2 HHCCT SaO2 % BldV from pO2 73.5 % Normal 08/15/2024 HHCCT MetHgb MFr Bld 0.8 % Normal 08/15/2024 0.4 - 1.5 HHCC T POC Glucose 221.0 mg/dL Above high normal 08/15/2024 65 - 99 HHCCT COHgb MFr Bld 1.5 % Normal 08/15/2024 0 - [address] VFr BldV Calc 3.6 mL/dL Below low normal 08/15/2024 7. 2 - 17.2 HHCCT MetHgb MFr Bld 0.8 % Normal 08/15/2024 0.4 - 1.5 HHCC T Hgb Bld-mCnc 5.1 g/dL Below low normal 08/15/2024 13 - 17.7 HHCCT SaO2 % BldV from pO2 69.7 % Normal 08/15/2024 HHCCT Lactate SerPl-sCnc 1.2 mmol/L Normal 08/15/2024 0.5 - 1.9 HHCCT POC Glucose 171.0 mg/dL Above high normal 08/14/2024 65 - 99 HHCCT BUN SerPl-mCnc 45.0 mg/dL Above high normal 08/14/2024 8 - 2 1 HHCCT Anion Gap Bld-sCnc 19.0 Above high normal 08/14/2024 7 - 17 HHCCT Calcium SerPl-mCnc 8.4 mg/dL Below low normal 08/14/2024 8.7 - 10.5 HHCCT Potassium SerPl-sCnc 5.1 mmol/L Normal 08/14/2024 3.4 - 5.3 HHCCT GFR/BSA.pred SerPlBld DBI-[id number]-RyUKvi 20.0 Below low normal 08/14/2024 59 - HHCCT Glucose SerPl-mCnc 103.0 mg/dL Above high normal 08/14/2024 65 - 99 HHCCT Creat SerPl-mCnc 3.1 mg/dL Above high normal 08/14/2024 0.5 - 1.3 HHCCT BUN/Creat SerPl 15.0 Ratio Normal 08/14/2024 10 - 25 HH CCT Sodium SerPl-sCnc 142.0 mmol/L Normal 08/14/2024 136 - 14 5 HHCCT CO2 SerPl-sCnc 16.0 mmol/L Below low normal 08/14/2024 22 - 33 HHCCT Chloride SerPl-sCnc 107.0 mmol/L Normal 08/14/2024 98 - 1 07 HHCCT POC Glucose 118.0 mg/dL Above high normal 08/14/2024 65 - 99 HHCCT SaO2 % BldV from pO2 53.5 % Normal 08/14/2024 HHCCT COHgb MFr Bld 1.2 % Normal 08/14/2024 0 - 2 HHCCT MetHgb MFr Bld 0.7 % Normal 08/14/2024 0.4 - 1.5 HHCC [address]2 [address] VFr BldV Calc 6.7 mL/dL Below low normal 08/14/2024 7. 2 - 17.2 HHCCT Hgb Bld-mCnc 9.1 g/dL Below low normal 08/14/2024 13 - 17.7 HHCCT POC Glucose 88.0 mg/dL Normal 08/14/2024 65 - 99 HHCCT POC Glucose 89.0 mg/dL Normal 08/14/2024 65 - 99 HHCCT POC Glucose 84.0 mg/dL Normal 08/14/2024 65 - 99 HHCCT POC Glucose 93.0 mg/dL Normal 08/14/2024 65 - 99 HHCCT Magnesium SerPl-mCnc 3.1 mg/dL Above high normal 08/14/2024 1.6 - 2.7 HHCCT Calcium SerPl-mCnc 8.3 mg/dL Below low normal 08/14/2024 8.7 - 10.5 HHCCT Chloride SerPl-sCnc 108.0 mmol/L Above high normal 98 - 107 HHCCT Anion Gap Bld-sCnc 16.0 Normal 08/14/2024 7 - 17 HHCCT Sodium SerPl-sCnc 143.0 mmol/L Normal 08/14/2024 136 - 14 5 HHCCT Glucose SerPl-mCnc 89.0 mg/dL Normal 08/14/2024 65 - 99 HHCCT BUN/Creat SerPl 15.0 Ratio Normal 08/14/2024 10 - 25 HH CCT Creat SerPl-mCnc 2.6 mg/dL Above high normal 08/14/2024 0.5 - 1.3 HHCCT BUN SerPl-mCnc 39.0 mg/dL Above high normal 08/14/2024 8 - 2 1 HHCCT CO2 SerPl-sCnc 19.0 mmol/L Below low normal 08/14/2024 22 - 33 HHCCT GFR/BSA.pred SerPlBld FVG-RDK-VmWTtz 25.0 Below low normal 08/14/2024 59 - HHCCT Potassium SerPl-sCnc 4.7 mmol/L Normal 08/14/2024 3.4 - 5.3 HHCCT RDW RBC Auto-Rto 14.1 % Normal 08/14/2024 11.5 - 14.5 HHCCT Platelet num Bld Auto 153.0 Thou/uL Normal 08/14/2024 150 - 450 HHCCT MCHC RBC Auto-mCnc 33.7 g/dL Normal 08/14/2024 30 - 36 HHCCT Hgb Bld-mCnc 10.2 g/dL Below low normal 08/14/2024 13 - 17.7 HHCCT PMV Bld Auto 10.4 fL Normal 08/14/2024 7.5 - 12.5 HHCCT RBC num Bld Auto 3.4 Mil/uL Below low normal 08/14/2024 4.5 - 6.2 HHCCT Hct VFr Bld Auto 30.3 % Below low normal 08/14/2024 39 - 54 HHCCT WBC num Bld Auto 17.0 Thou/uL Above high normal 08/14/2024 4 - 11 HHCCT MCV RBC Auto 89.0 fL Normal 08/14/2024 80 - 100 HHCCT MCH RBC Qn Auto 30.0 pg Normal 08/14/2024 27 - [address] Hgb Bld-mCnc 5.8 g/dL Below low normal 08/14/2024 13 - 17.7 HHCCT COHgb MFr Bld 1.3 % Normal 08/14/2024 0 - 2 HHCCT MetHgb MFr Bld 0.9 % Normal 08/14/2024 0.4 - 1.5 HHCC [address] VFr BldV Calc 3.9 mL/dL Below low normal 08/14/2024 7. 2 - 17.2 HHCCT SaO2 % BldV from pO2 67.9 % Normal 08/14/2024 HHCCT POC Glucose 98.0 mg/dL Normal 08/14/2024 65 - 99 HHCCT POC Glucose 102.0 mg/dL Above high normal 08/14/2024 65 - 99 HHCCT pH, Arterial 7.38 Normal 08/14/2024 7.35 - 7.45 HHCC T pCO2, Arterial 34.0 mmHG Normal 08/14/2024 32 - 45 HHCC T pO2, Arterial 122.0 mmHG Above high normal 08/14/2024 75 - 9 5 HHCCT Total CO2, Arterial 21.0 mmol/L Below low normal 08/14/2024 22 - 28 HHCCT Base deficit BldA-sCnc 3.9 mmol/L Normal 08/14/2024 HHCCT Respiratory Information NASAL 4 L/MIN Normal 08/14/2024 HHCCT POC Glucose 97.0 mg/dL Normal 08/14/2024 65 - 99 HHCCT Total CO2, Arterial 22.0 mmol/L Normal 08/14/2024 22 - 28 HHCCT P/F Ratio 308.0 Normal 08/14/2024 HHCCT pCO2, Arterial 36.0 mmHG Normal 08/14/2024 32 - 45 HHCC T Base deficit BldA-sCnc 2.9 mmol/L Normal 08/14/2024 HHCCT pO2, Arterial 123.0 mmHG Above high normal 08/14/2024 75 - 9 5 HHCCT pH, Arterial 7.39 Normal 08/14/2024 7.35 - 7.45 HHCC T Respiratory Information VENT 40% Normal 08/14/2024 HHCCT MetHgb MFr Bld 0.9 % Normal 08/14/2024 0.4 - 1.5 HHCC T COHgb MFr Bld 1.6 % Normal 08/14/2024 0 - 2 HHCCT Hgb Bld-mCnc 9.3 g/dL Below low normal 08/14/2024 13 - 17.[address] VFr BldV Calc 8.8 mL/dL Normal 08/14/2024 7.2 - 17. 2 HHCCT SaO2 % BldV from pO2 69.0 % Normal 08/14/2024 HHCCT POC Glucose 87.0 mg/dL Normal 08/14/2024 65 - 99 HHCCT Potassium SerPl-sCnc 4.8 mmol/L Normal 08/14/2024 3.4 - 5.3 HHCCT Hgb Bld-mCnc 10.7 g/dL Below low normal 08/14/2024 13 - 17.7 HHCCT Hct VFr Bld Auto 30.8 % Below low normal 08/14/2024 39 - 54 HHCCT POC Glucose 83.0 mg/dL Normal 08/14/2024 65 - 99 HHCCT POC Glucose 91.0 mg/dL Normal 08/13/2024 65 - 99 HHCCT POC Glucose 80.0 mg/dL Normal 08/13/2024 65 - 99 HHCCT pH, Arterial 7.47 Above high normal 08/13/2024 7.35 - 7 .45 HHCCT pO2, Arterial 89.0 mmHG Normal 08/13/2024 75 - 95 HHCCT Total CO2, Arterial 23.0 mmol/L Normal 08/13/2024 22 - 28 HHCCT pCO2, Arterial 31.0 mmHG Below low normal 08/13/2024 32 - 45 HHCCT Base deficit BldA-sCnc 0.3 mmol/L Normal 08/13/2024 HHCCT P/F Ratio 223.0 Normal 08/13/2024 HHCCT Respiratory Information VENT 40% Normal 08/13/2024 HHCCT POC Glucose 98.0 mg/dL Normal 08/13/2024 65 - 99 HHCCT POC Glucose 103.0 mg/dL Above high normal 08/13/2024 65 - 99 HHCCT POC Glucose 125.0 mg/dL Above high normal 08/13/2024 65 - 99 HHCCT Potassium SerPl-sCnc 4.9 mmol/L Normal 08/13/2024 3.4 - 5.3 HHCCT BUN/Creat SerPl 16.0 Ratio Normal 08/13/2024 10 - 25 HH CCT BUN SerPl-mCnc 36.0 mg/dL Above high normal 08/13/2024 8 - 2 1 HHCCT CO2 SerPl-sCnc 21.0 mmol/L Below low normal 08/13/2024 22 - 33 HHCCT Calcium SerPl-mCnc 8.8 mg/dL Normal 08/13/2024 8.7 - 10.5 HHCCT Creat SerPl-mCnc 2.3 mg/dL Above high normal 08/13/2024 0.5 - 1.3 HHCCT Anion Gap Bld-sCnc 12.0 Normal 08/13/2024 7 - 17 HHCCT GFR/BSA.pred SerPlBld GMB-FQD-HsNDqr 29.0 Below low normal 08/13/2024 59 - HHCCT Sodium SerPl-sCnc 142.0 mmol/L Normal 08/13/2024 136 - 14 5 HHCCT Chloride SerPl-sCnc 109.0 mmol/L Above high normal 98 - 107 HHCCT Glucose SerPl-mCnc 122.0 mg/dL Above high normal 08/13/2024 65 - 99 HHCCT P/F Ratio 64.0 Normal 08/13/2024 HHCCT pCO2, Arterial 35.0 mmHG Normal 08/13/2024 32 - 45 HHCC T Base deficit BldA-sCnc 2.8 mmol/L Normal 08/13/2024 HHCCT pH, Arterial 7.39 Normal 08/13/2024 7.35 - 7.45 HHCC T pO2, Arterial 64.0 mmHG Below low normal 08/13/2024 75 - 95 HHCCT Total CO2, Arterial 22.0 mmol/L Normal 08/13/2024 22 - 28 HHCCT Respiratory Information VENT 100% Normal 08/13/2024 HHCCT RBC num Bld Auto 4.03 Mil/uL Below low normal 08/13/2024 4.5 - 6.2 HHCCT RDW RBC Auto-Rto 13.4 % Normal 08/13/2024 11.5 - 14.5 HHCCT MCHC RBC Auto-mCnc 34.6 g/dL Normal 08/13/2024 30 - 36 HHCCT WBC num Bld Auto 20.5 Thou/uL Above high normal 08/13/2024 4 - 11 HHCCT PMV Bld Auto 10.0 fL Normal 08/13/2024 7.5 - 12.5 HHCCT Hgb Bld-mCnc 12.2 g/dL Below low normal 08/13/2024 13 - 17.7 HHCCT MCH RBC Qn Auto 30.3 pg Normal 08/13/2024 27 - [address] Hct VFr Bld Auto 35.3 % Below low normal 08/13/2024 39 - 54 HHCCT MCV RBC Auto 88.0 fL Normal 08/13/2024 80 - 100 HHCCT Platelet num Bld Auto 156.0 Thou/uL Normal 08/13/2024 150 - [address] VFr BldV Calc 4.2 mL/dL Below low normal 08/13/2024 7. 2 - 17.2 HHCCT SaO2 % BldV from pO2 66.8 % Normal 08/13/2024 HHCCT Base deficit BldA-sCnc 3.9 mmol/L Normal 08/13/2024 HHCCT Hgb Bld-mCnc 6.4 g/dL Below low normal 08/13/2024 13 - 17.7 HHCCT pO2 BldV 35.0 mmHG Normal 08/13/2024 0 - 60 HHCCT COHgb MFr Bld 1.6 % Normal 08/13/2024 0 - 2 HHCCT pH BldV 7.36 Normal 08/13/2024 7.33 - 7.43 HHCCT MetHgb MFr Bld 0.6 % Normal 08/13/2024 0.4 - 1.5 HHCC T CO2 BldV-sCnc 22.0 mmol/L Below low normal 08/13/2024 23 - 2 9 HHCCT pCO2 BldV 37.0 mmHG Normal 08/13/2024 35 - 50 HHCCT Respiratory Information VENT 100% Normal 08/13/2024 HHCCT ISTAT Venous pH 7.37 Normal 08/13/2024 7.33 - 7.43 H HCCT ISTAT Sample Type VENOUS Normal 08/13/2024 H HCCT ISTAT Venous TCO2 26.0 mmol/L Normal 08/13/2024 23 - 29 HHCCT ISTAT Base Excess -1 Normal 08/13/2024 H HCCT ISTAT Venous HCO3 24.6 mmol/L Normal 08/13/2024 23 - 28 HHCCT Venous O2 Saturation, POC 69.0 % Normal 08/13/2024 60 - 75 HHCCT ISTAT VENOUS PCO2 42.7 mmHg Normal 08/13/2024 35 - 50 H HCCT ISTAT Venous PO2 37.0 mmHg Normal 08/13/2024 0 - 60 HH CCT ISTAT Hematocrit 30.0 % Below low normal 08/13/2024 39 - 54 HHCCT ISTAT Hemoglobin 10.2 gm/dL Below low normal 08/13/2024 13 - 17.7 HHCCT ISTAT Sodium 141.0 mmol/L Normal 08/13/2024 136 - [address] ISTAT Ionized Calcium 1.48 mmol/L Above high normal 08/13/2024 1.17 - 1.33 HHCCT ISTAT Glucose 120.0 mg/dL Above high normal 08/13/2024 65 - 99 HHCCT ISTAT Potassium 5.0 mmol/L Normal 08/13/2024 3.4 - 5.3 HH CCT ISTAT Activated Clotting Time,Kaolin 152.0 seconds Above high normal 08/13/2024 74 - 137 HHCCT ISTAT O2 Saturation 100.0 % Above high normal 08/13/2024 9 4 - 97 HHCCT ISTAT Arterial Total CO2 25.0 mmol/L Normal 08/13/2024 22 - 28 HHCCT ISTAT Arterial PCO2 34.3 mmHg Normal 08/13/2024 32 - 45 HHCCT ISTAT Arterial HCO3 24.0 mmol/L Normal 08/13/2024 22 - 26 HHCCT ISTAT Sample Type Arterial Normal 08/13/2024 H HCCT ISTAT Arterial pH 7.45 Normal 08/13/2024 7.35 - 7.45 HHCCT ISTAT Arterial PO2 310.0 mmHg Above high normal 08/13/2024 7 5 - 95 HHCCT ISTAT Base Excess 0.0 mmol/L Normal 08/13/2024 HHCCT ISTAT Ionized Calcium 1.16 mmol/L Below low normal 08/13/2024 1.17 - 1.33 HHCCT ISTAT Sodium 141.0 mmol/L Normal 08/13/2024 136 - [address] ISTAT Glucose 111.0 mg/dL Above high normal 08/13/2024 65 - 99 HHCCT ISTAT Hemoglobin 8.2 gm/dL Below low normal 08/13/2024 13 - 17.7 HHCCT ISTAT Potassium 4.6 mmol/L Normal 08/13/2024 3.4 - 5.3 HH CCT ISTAT Hematocrit 24.0 % Below low normal 08/13/2024 39 - 54 HHCCT ISTAT Activated Clotting Time,Kaolin 619.0 seconds Above high normal 08/13/2024 74 - 137 HHCCT ISTAT Hemoglobin 7.8 gm/dL Below low normal 08/13/2024 13 - 17.7 HHCCT ISTAT Potassium 5.1 mmol/L Normal 08/13/2024 3.4 - 5.3 HH CCT ISTAT Hematocrit 23.0 % Below low normal 08/13/2024 39 - 54 HHCCT ISTAT Arterial HCO3 23.3 mmol/L Normal 08/13/2024 22 - 26 HHCCT ISTAT Arterial PCO2 37.0 mmHg Normal 08/13/2024 32 - 45 HHCCT ISTAT Arterial Total CO2 24.0 mmol/L Normal 08/13/2024 22 - 28 HHCCT ISTAT Arterial pH 7.41 Normal 08/13/2024 7.35 - 7.45 HHCCT ISTAT Sample Type Arterial Normal 08/13/2024 H HCCT ISTAT Base Excess -1 Normal 08/13/2024 H HCCT ISTAT Arterial PO2 296.0 mmHg Above high normal 08/13/2024 7 5 - 95 HHCCT ISTAT O2 Saturation 100.0 % Above high normal 08/13/2024 9 4 - 97 HHCCT ISTAT Glucose 134.0 mg/dL Above high normal 08/13/2024 65 - 99 HHCCT ISTAT Ionized Calcium 1.33 mmol/L Normal 08/13/2024 1.17 - 1.33 HHCCT ISTAT Sodium 139.0 mmol/L Normal 08/13/2024 136 - [address] ISTAT Activated Clotting Time,Kaolin 469.0 seconds Above high normal 08/13/2024 74 - 137 HHCCT ISTAT Ionized Calcium 0.83 mmol/L Below low normal 08/13/2024 1.17 - 1.33 HHCCT ISTAT Glucose 85.0 mg/dL Normal 08/13/2024 65 - 99 HHCC T ISTAT Hemoglobin 7.5 gm/dL Below low normal 08/13/2024 13 - 17.7 HHCCT ISTAT Sodium 145.0 mmol/L Normal 08/13/2024 136 - [address] ISTAT Potassium 4.3 mmol/L Normal 08/13/2024 3.4 - 5.3 HH CCT ISTAT Arterial Total CO2 29.0 mmol/L Above high normal 08/13/2024 22 - 28 HHCCT ISTAT Arterial PCO2 39.6 mmHg Normal 08/13/2024 32 - 45 HHCCT ISTAT Base Excess 4.0 mmol/L Normal 08/13/2024 HHCCT ISTAT Arterial PO2 368.0 mmHg Above high normal 08/13/2024 7 5 - 95 HHCCT ISTAT Arterial pH 7.45 Normal 08/13/2024 7.35 - 7.45 HHCCT ISTAT Arterial HCO3 27.6 mmol/L Above high normal 08/13/2024 22 - 26 HHCCT ISTAT Sample Type Arterial Normal 08/13/2024 H HCCT ISTAT O2 Saturation 100.0 % Above high normal 08/13/2024 9 4 - 97 HHCCT ISTAT Hematocrit 22.0 % Below low normal 08/13/2024 39 - 54 HHCCT %Lysis 30 min,Heparinized 0.0 % Normal 08/13/2024 0 - 8 HHCCT Max Amplitude,Hepariniz ed 74.8 mm Above high normal 08/13/2024 50 - 70 HHCCT Reaction Time,Heparinized 9.2 minutes Normal 08/13/2024 5 - 10 HHCCT Fibrin Function,Heparinize d 1.5 minutes Normal 08/13/2024 1 - 3 HHCCT Anticoagulant Information not given Normal 08/13/2024 HHCCT Lactate SerPl-sCnc 0.8 mmol/L Normal 08/13/2024 0.5 - 1.9 HHCCT Platelet num Bld Auto 200.0 Thou/uL Normal 08/13/2024 150 - 450 HHCCT Hct VFr Bld Auto 21.9 % Below low normal 08/13/2024 39 - 54 HHCCT ISTAT Activated Clotting Time,Kaolin 608.0 seconds Above high normal 08/13/2024 74 - 137 HHCCT ISTAT Hematocrit 26.0 % Below low normal 08/13/2024 39 - 54 HHCCT ISTAT Sodium 139.0 mmol/L Normal 08/13/2024 136 - [address] ISTAT Potassium 5.1 mmol/L Normal 08/13/2024 3.4 - 5.3 HH CCT ISTAT Hemoglobin 8.8 gm/dL Below low normal 08/13/2024 13 - 17.7 [facility] ISTAT Ionized Calcium 0.94 mmol/L Below low normal 08/13/2024 1.17 - 1.33 [facility] ISTAT Sample Type Arterial Normal 08/13/2024 H [facility] ISTAT Base Excess -1 Normal 08/13/2024 H [facility]CT ISTAT O2 Saturation 100.0 % Above high normal 08/13/2024 9 4 - 97 [facility]CT ISTAT Arterial pH 7.4 Normal 08/13/2024 7.35 - 7.45 [facility]CT ISTAT Arterial PO2 361.0 mmHg Above high normal 08/13/2024 7 5 - 95 [facility]CT ISTAT Arterial PCO2 38.7 mmHg Normal 08/13/2024 32 - 45 [facility]CT ISTAT Arterial HCO3 24.0 mmol/L Normal 08/13/2024 22 - 26 [facility]CT ISTAT Arterial Total CO2 25.0 mmol/L Normal 08/13/2024 22 - 28 [facility]CT ISTAT Glucose 105.0 mg/dL Above high normal 08/13/2024 65 - 99 [facility]CT ISTAT Activated Clotting Time,Kaolin 619.0 seconds Above high normal 08/13/2024 74 - 137 H[facility]CT ISTAT Glucose 124.0 mg/dL Above high normal 08/13/2024 65 - 99 [facility]CT ISTAT Potassium 5.6 mmol/L Above high normal 08/13/2024 3.4 - 5.3 H[facility]CT ISTAT Arterial pH 7.38 Normal 08/13/2024 7.35 - 7.45 H[facility]CT ISTAT O2 Saturation 100.0 % Above high normal 08/13/2024 9 4 - 97 [facility]CT ISTAT Sample Type Arterial Normal 08/13/2024 H [facility]CT ISTAT Arterial HCO3 21.8 mmol/L Below low normal 08/13/2024 22 - 26 [facility]CT ISTAT Arterial PO2 350.0 mmHg Above high normal 08/13/2024 7 5 - 95 [facility]CT ISTAT Base Excess -3 Normal 08/13/2024 H [facility]CT ISTAT Arterial Total CO2 23.0 mmol/L Normal 08/13/2024 22 - 28 [facility]CT ISTAT Arterial PCO2 37.2 mmHg Normal 08/13/2024 32 - 45 [facility]CT ISTAT Hematocrit 26.0 % Below low normal 08/13/2024 39 - 54 [facility]CT ISTAT Hemoglobin 8.8 gm/dL Below low normal 08/13/2024 13 - 17.7 [facility]CT ISTAT Sodium 135.0 mmol/L Below low normal 08/13/2024 136 - 145 [facility]CT ISTAT Ionized Calcium 1.01 mmol/L Below low normal 08/13/2024 1.17 - 1.33 [facility]CT ISTAT Activated Clotting Time,Kaolin 492.0 seconds Above high normal 08/13/2024 74 - 137 [facility]CT ISTAT Glucose 132.0 mg/dL Above high normal 08/13/2024 65 - 99 H[facility]CT ISTAT Sodium 134.0 mmol/L Below low normal 08/13/2024 136 - 145 H[facility]CT ISTAT Hematocrit 23.0 % Below low normal 08/13/2024 39 - 54 [facility]CT ISTAT Hemoglobin 7.8 gm/dL Below low normal 08/13/2024 13 - 17.7 [facility]CT ISTAT Arterial PCO2 35.7 mmHg Normal 08/13/2024 32 - 45 [facility]CT ISTAT Arterial HCO3 21.7 mmol/L Below low normal 08/13/2024 22 - 26 [facility]CT ISTAT O2 Saturation 100.0 % Above high normal 08/13/2024 9 4 - 97 [facility]CT ISTAT Arterial PO2 356.0 mmHg Above high normal 08/13/2024 7 5 - 95 [facility]CT ISTAT Arterial pH 7.39 Normal 08/13/2024 7.35 - 7.45 [facility]CT ISTAT Arterial Total CO2 23.0 mmol/L Normal 08/13/2024 22 - 28 [facility]CT ISTAT Sample Type Arterial Normal 08/13/2024 H HCCT ISTAT Base Excess -3 Normal 08/13/2024 H HCCT ISTAT Potassium 5.7 mmol/L Above high normal 08/13/2024 3.4 - 5.3 [facility]CT ISTAT Ionized Calcium 1.0 mmol/L Below low normal 08/13/2024 1.17 - 1.33 [facility]CT ISTAT Activated Clotting Time,Kaolin 492.0 seconds Above high normal 08/13/2024 74 - 137 H[facility]CT ISTAT Sodium 135.0 mmol/L Below low normal 08/13/2024 136 - 145 H[facility]CT ISTAT Potassium 5.1 mmol/L Normal 08/13/2024 3.4 - 5.3 HH CCT ISTAT Glucose 138.0 mg/dL Above high normal 08/13/2024 65 - 99 H[facility]CT ISTAT Hemoglobin 7.5 gm/dL Below low normal 08/13/2024 13 - 17.7 HHCCT ISTAT Hematocrit 22.0 % Below low normal 08/13/2024 39 - 54 [facility]CT ISTAT Ionized Calcium 1.03 mmol/L Below low normal 08/13/2024 1.17 - 1.33 [facility]CT ISTAT Arterial Total CO2 22.0 mmol/L Normal 08/13/2024 22 - 28 [facility]CT ISTAT Sample Type Arterial Normal 08/13/2024 H [facility]CT ISTAT Arterial HCO3 20.9 mmol/L Below low normal 08/13/2024 22 - 26 [facility]CT ISTAT O2 Saturation 100.0 % Above high normal 08/13/2024 9 4 - 97 [facility]CT ISTAT Arterial PCO2 36.2 mmHg Normal 08/13/2024 32 - 45 [facility]CT ISTAT Base Excess -4 Normal 08/13/2024 H [facility]CT ISTAT Arterial PO2 380.0 mmHg Above high normal 08/13/2024 7 5 - 95 [facility]CT ISTAT Arterial pH 7.37 Normal 08/13/2024 7.35 - 7.45 H[facility]CT ISTAT Activated Clotting Time,Kaolin 544.0 seconds Above high normal 08/13/2024 74 - 137 [facility]CT ISTAT Hemoglobin 8.8 gm/dL Below low normal 08/13/2024 13 - 17.7 HHCCT ISTAT Hematocrit 26.0 % Below low normal 08/13/2024 39 - 54 H[facility]CT ISTAT Potassium 5.0 mmol/L Normal 08/13/2024 3.4 - 5.3 HH CCT ISTAT Ionized Calcium 1.08 mmol/L Below low normal 08/13/2024 1.17 - 1.33 H[facility]CT ISTAT Glucose 145.0 mg/dL Above high normal 08/13/2024 65 - 99 HHCCT ISTAT Arterial Total CO2 20.0 mmol/L Below low normal 08/13/2024 22 - 28 [facility]CT ISTAT Sample Type Arterial Normal 08/13/2024 H HCCT ISTAT Base Excess -7 Normal 08/13/2024 H HCCT ISTAT Arterial PCO2 36.8 mmHg Normal 08/13/2024 32 - 45 [facility]CT ISTAT Arterial pH 7.32 Below low normal 08/13/2024 7.35 - 7.45 H[facility]CT ISTAT Arterial HCO3 19.1 mmol/L Below low normal 08/13/2024 22 - 26 [facility]CT ISTAT Arterial PO2 436.0 mmHg Above high normal 08/13/2024 7 5 - 95 [facility]CT ISTAT O2 Saturation 100.0 % Above high normal 08/13/2024 9 4 - 97 [facility]CT ISTAT Sodium 134.0 mmol/L Below low normal 08/13/2024 136 - 145 [facility]CT ISTAT Hemoglobin 8.5 gm/dL Below low normal 08/13/2024 13 - 17.7 HHCCT ISTAT Sodium 136.0 mmol/L Normal 08/13/2024 136 - [address] ISTAT Ionized Calcium 1.08 mmol/L Below low normal 08/13/2024 1.17 - 1.33 H[facility]CT ISTAT Potassium 4.4 mmol/L Normal 08/13/2024 3.4 - 5.3 HH CCT ISTAT Glucose 119.0 mg/dL Above high normal 08/13/2024 65 - 99 H[facility]CT ISTAT Hematocrit 25.0 % Below low normal 08/13/2024 39 - 54 H[facility]CT ISTAT Venous pH 7.32 Below low normal 08/13/2024 7.33 - 7.43 H[facility]CT ISTAT Base Excess -6 Normal 08/13/2024 H HCCT Venous O2 Saturation, POC 79.0 % Above high normal 08/13/2024 60 - 75 H[facility]CT ISTAT Sample Type VENOUS Normal 08/13/2024 H HCCT ISTAT Venous PO2 47.0 mmHg Normal 08/13/2024 0 - 60 HH CCT ISTAT Venous HCO3 20.0 mmol/L Below low normal 08/13/2024 23 - 28 [facility]CT ISTAT VENOUS PCO2 39.2 mmHg Normal 08/13/2024 35 - 50 H HCCT ISTAT Venous TCO2 21.0 mmol/L Below low normal 08/13/2024 23 - 29 H[facility]CT ISTAT Activated Clotting Time,Kaolin 158.0 seconds Above high normal 08/13/2024 74 - 137 H[facility]CT ISTAT Arterial pH 7.4 Normal 08/13/2024 7.35 - 7.45 H[facility]CT ISTAT Sample Type Arterial Normal 08/13/2024 H HCCT ISTAT Arterial Total CO2 21.0 mmol/L Below low normal 08/13/2024 22 - 28 H[facility]CT ISTAT Arterial PCO2 33.0 mmHg Normal 08/13/2024 32 - 45 H[facility]CT ISTAT O2 Saturation 100.0 % Above high normal 08/13/2024 9 4 - 97 H[facility]CT ISTAT Base Excess -4 Normal 08/13/2024 H HCCT ISTAT Arterial PO2 460.0 mmHg Above high normal 08/13/2024 7 5 - 95 H[facility]CT ISTAT Arterial HCO3 20.4 mmol/L Below low normal 08/13/2024 22 - 26 H[facility]CT ISTAT Hematocrit 30.0 % Below low normal 08/13/2024 39 - 54 H[facility]CT ISTAT Sodium 134.0 mmol/L Below low normal 08/13/2024 136 - 145 H[facility]CT ISTAT Hemoglobin 10.2 gm/dL Below low normal 08/13/2024 13 - 17.7 HHCCT ISTAT Potassium 4.5 mmol/L Normal 08/13/2024 3.4 - 5.3 HH CCT ISTAT Glucose 122.0 mg/dL Above high normal 08/13/2024 65 - 99 H[facility]CT ISTAT Ionized Calcium 1.17 mmol/L Normal 08/13/2024 1.17 - 1.33 HHCCT Max Amplitude 78.0 mm Above high normal 08/13/2024 50 - 70 HHCCT Max Amplitude,Hepariniz ed 81.0 mm Above high normal 08/13/2024 50 - 70 HHCCT %Lysis 30 min,Heparinized 0.0 % Normal 08/13/2024 0 - 8 HHCCT %Lysis 30 min 0.0 % Normal 08/13/2024 0 - 8 HHCCT Reaction Time,Heparinized 6.0 minutes Normal 08/13/2024 5 - 10 HHCCT Fibrin Function,Heparinize d 0.9 minutes Below low normal 08/13/2024 1 - 3 HHCCT Angle, Heparinized 77.3 degrees Above high normal 08/13/2024 53 - 72 HHCCT Fibrin Function 2.0 minutes Normal 08/13/2024 1 - 3 H HCCT Angle 65.5 degrees Normal 08/13/2024 53 - 72 HHCCT Reaction Time 10.4 minutes Above high normal 08/13/2024 5 - 10 HHCCT Anticoagulant Information not given Normal 08/13/2024 HHCCT Lactate SerPl-sCnc 0.7 mmol/L Normal 08/13/2024 0.5 - 1.9 HHCCT POC Glucose 124.0 mg/dL Above high normal 08/13/2024 65 - 99 HHCCT Creat SerPl-mCnc 3.1 mg/dL Above high normal 08/13/2024 0.5 - 1.3 HHCCT Calcium SerPl-mCnc 8.9 mg/dL Normal 08/13/2024 8.7 - 10.5 HHCCT Glucose SerPl-mCnc 111.0 mg/dL Above high normal 08/13/2024 65 - 99 HHCCT Potassium SerPl-sCnc 5.0 mmol/L Normal 08/13/2024 3.4 - 5.3 HHCCT BUN SerPl-mCnc 47.0 mg/dL Above high normal 08/13/2024 8 - 2 1 HHCCT Anion Gap Bld-sCnc 12.0 Normal 08/13/2024 7 - 17 HHCCT BUN/Creat SerPl 15.0 Ratio Normal 08/13/2024 10 - 25 HH CCT Sodium SerPl-sCnc 137.0 mmol/L Normal 08/13/2024 136 - 14 5 HHCCT Chloride SerPl-sCnc 102.0 mmol/L Normal 08/13/2024 98 - 1 07 HHCCT CO2 SerPl-sCnc 23.0 mmol/L Normal 08/13/2024 22 - 33 HH CCT GFR/BSA.pred SerPlBld [id number] 20.0 Below low normal 08/13/2024 59 - HHCCT Magnesium SerPl-mCnc 1.9 mg/dL Normal 08/13/2024 1.6 - 2.7 HHCCT RBC num Bld Auto 3.88 Mil/uL Below low normal 08/13/2024 4.5 - 6.2 HHCCT RDW RBC Auto-Rto 12.7 % Normal 08/13/2024 11.5 - 14.5 HHCCT Hct VFr Bld Auto 34.7 % Below low normal 08/13/2024 39 - 54 HHCCT MCH RBC Qn Auto 29.4 pg Normal 08/13/2024 27 - [address] MCV RBC Auto 89.0 fL Normal 08/13/2024 80 - 100 HHCCT Hgb Bld-mCnc 11.4 g/dL Below low normal 08/13/2024 13 - 17.7 HHCCT PMV Bld Auto 10.1 fL Normal 08/13/2024 7.5 - 12.5 HHCCT MCHC RBC Auto-mCnc 32.9 g/dL Normal 08/13/2024 30 - 36 HHCCT Platelet num Bld Auto 326.0 Thou/uL Normal 08/13/2024 150 - 450 HHCCT WBC num Bld Auto 16.6 Thou/uL Above high normal 08/13/2024 4 - 11 HHCCT LMWH PPP Credit Office Manager-aCnc 0.51 IU/mL Normal 08/13/2024 HHCCT Anticoagulant IV HEPARIN, UNFRACTIONATED Normal 08/13/2024 HHCCT POC Glucose 129.0 mg/dL Above high normal 08/13/2024 65 - 99 HHCCT POC Glucose 185.0 mg/dL Above high normal 08/13/2024 65 - 99 HHCCT POC Glucose 229.0 mg/dL Above high normal 08/12/2024 65 - 99 HHCCT POC Glucose 172.0 mg/dL Above high normal 08/12/2024 65 - 99 HHCCT POC Glucose 119.0 mg/dL Above high normal 08/12/2024 65 - 99 HHCCT BUN SerPl-mCnc 45.0 mg/dL Above high normal 08/12/2024 8 - 2 1 HHCCT GFR/BSA.pred SerPlBld [id number] 22.0 Below low normal 08/12/2024 59 - HHCCT Glucose SerPl-mCnc 121.0 mg/dL Above high normal 08/12/2024 65 - 99 HHCCT CO2 SerPl-sCnc 23.0 mmol/L Normal 08/12/2024 22 - 33 HH CCT Chloride SerPl-sCnc 101.0 mmol/L Normal 08/12/2024 98 - 1 07 HHCCT Sodium SerPl-sCnc 136.0 mmol/L Normal 08/12/2024 136 - 14 5 HHCCT Calcium SerPl-mCnc 8.9 mg/dL Normal 08/12/2024 8.7 - 10.5 HHCCT Creat SerPl-mCnc 2.9 mg/dL Above high normal 08/12/2024 0.5 - 1.3 HHCCT Anion Gap Bld-sCnc 12.0 Normal 08/12/2024 7 - 17 HHCCT Potassium SerPl-sCnc 5.2 mmol/L Normal 08/12/2024 3.4 - 5.3 HHCCT BUN/Creat SerPl 16.0 Ratio Normal 08/12/2024 10 - 25 HH CCT Magnesium SerPl-mCnc 1.8 mg/dL Normal 08/12/2024 1.6 - 2.7 HHCCT MCH RBC Qn Auto 29.3 pg Normal 08/12/2024 27 - [address] WBC num Bld Auto 14.5 Thou/uL Above high normal 08/12/2024 4 - 11 HHCCT RDW RBC Auto-Rto 12.7 % Normal 08/12/2024 11.5 - 14.5 HHCCT Hct VFr Bld Auto 35.1 % Below low normal 08/12/2024 39 - 54 HHCCT MCHC RBC Auto-mCnc 33.0 g/dL Normal 08/12/2024 30 - 36 HHCCT Platelet num Bld Auto 349.0 Thou/uL Normal 08/12/2024 150 - 450 HHCCT RBC num Bld Auto 3.96 Mil/uL Below low normal 08/12/2024 4.5 - 6.2 HHCCT MCV RBC Auto 89.0 fL Normal 08/12/2024 80 - 100 HHCCT Hgb Bld-mCnc 11.6 g/dL Below low normal 08/12/2024 13 - 17.7 HHCCT PMV Bld Auto 10.1 fL Normal 08/12/2024 7.5 - 12.5 HHCCT LMWH PPP Credit Office Manager-aCnc 0.65 IU/mL Normal 08/12/2024 HHCCT Anticoagulant IV HEPARIN, UNFRACTIONATED Normal 08/12/2024 HHCCT POC Glucose 141.0 mg/dL Above high normal 08/12/2024 65 - 99 HHCCT POC Glucose 217.0 mg/dL Above high normal 08/12/2024 65 - 99 HHCCT POC Glucose 253.0 mg/dL Above high normal 08/11/2024 65 - 99 HHCCT POC Glucose 140.0 mg/dL Above high normal 08/11/2024 65 - 99 HHCCT POC Glucose 96.0 mg/dL Normal 08/11/2024 65 - 99 HHCCT Magnesium SerPl-mCnc 1.9 mg/dL Normal 08/11/2024 1.6 - 2.7 HHCCT BUN/Creat SerPl 17.0 Ratio Normal 08/11/2024 10 - 25 HH CCT CO2 SerPl-sCnc 21.0 mmol/L Below low normal 08/11/2024 22 - 33 HHCCT Glucose SerPl-mCnc 86.0 mg/dL Normal 08/11/2024 65 - 99 HHCCT Anion Gap Bld-sCnc 10.0 Normal 08/11/2024 7 - 17 HHCCT Potassium SerPl-sCnc 4.6 mmol/L Normal 08/11/2024 3.4 - 5.3 HHCCT Creat SerPl-mCnc 2.7 mg/dL Above high normal 08/11/2024 0.5 - 1.3 HHCCT Sodium SerPl-sCnc 133.0 mmol/L Below low normal 08/11/2024 1 36 - 145 HHCCT GFR/BSA.pred SerPlBld [id number] 24.0 Below low normal 08/11/2024 59 - HHCCT Chloride SerPl-sCnc 102.0 mmol/L Normal 08/11/2024 98 - 1 07 HHCCT BUN SerPl-mCnc 47.0 mg/dL Above high normal 08/11/2024 8 - 2 1 HHCCT Calcium SerPl-mCnc 8.9 mg/dL Normal 08/11/2024 8.7 - 10.5 HHCCT Hct VFr Bld Auto 32.4 % Below low normal 08/11/2024 39 - 54 HHCCT Hgb Bld-mCnc 10.7 g/dL Below low normal 08/11/2024 13 - 17.7 HHCCT RBC num Bld Auto 3.65 Mil/uL Below low normal 08/11/2024 4.5 - 6.2 HHCCT MCH RBC Qn Auto 29.3 pg Normal 08/11/2024 27 - [address] Platelet num Bld Auto 394.0 Thou/uL Normal 08/11/2024 150 - 450 HHCCT MCHC RBC Auto-mCnc 33.0 g/dL Normal 08/11/2024 30 - 36 HHCCT PMV Bld Auto 9.7 fL Normal 08/11/2024 7.5 - 12.5 HHCCT WBC num Bld Auto 14.3 Thou/uL Above high normal 08/11/2024 4 - 11 HHCCT MCV RBC Auto 89.0 fL Normal 08/11/2024 80 - 100 HHCCT RDW RBC Auto-Rto 12.6 % Normal 08/11/2024 11.5 - 14.5 HHCCT LMWH PPP Credit Office Manager-aCnc 0.69 IU/mL Normal 08/11/2024 HHCCT Anticoagulant IV HEPARIN, UNFRACTIONATED Normal 08/11/2024 HHCCT POC Glucose 127.0 mg/dL Above high normal 08/11/2024 65 - 99 HHCCT LMWH PPP Credit Office Manager-aCnc 0.51 IU/mL Normal 08/11/2024 HHCCT Anticoagulant IV HEPARIN, UNFRACTIONATED Normal 08/10/2024 HHCCT POC Glucose 195.0 mg/dL Above high normal 08/11/2024 65 - 99 HHCCT POC Glucose 233.0 mg/dL Above high normal 08/10/2024 65 - 99 HHCCT POC Glucose 112.0 mg/dL Above high normal 08/10/2024 65 - 99 HHCCT POC Glucose 109.0 mg/dL Above high normal 08/10/2024 65 - 99 HHCCT pro BNP, N-terminal 46036.0 pg/mL Above high normal 08/11/19 25 - 450 HHCCT Glucose SerPl-mCnc 112.0 mg/dL Above high normal 08/10/2024 65 - 99 HHCCT Calcium SerPl-mCnc 8.6 mg/dL Below low normal 08/10/2024 8.7 - 10.5 HHCCT Creat SerPl-mCnc 2.8 mg/dL Above high normal 08/10/2024 0.5 - 1.3 HHCCT GFR/BSA.pred SerPlBld [id number] 23.0 Below low normal 08/10/2024 59 - HHCCT BUN SerPl-mCnc 50.0 mg/dL Above high normal 08/10/2024 8 - 2 1 HHCCT CO2 SerPl-sCnc 21.0 mmol/L Below low normal 08/10/2024 22 - 33 HHCCT Potassium SerPl-sCnc 4.5 mmol/L Normal 08/10/2024 3.4 - 5.3 HHCCT Sodium SerPl-sCnc 135.0 mmol/L Below low normal 08/10/2024 1 36 - 145 HHCCT Chloride SerPl-sCnc 102.0 mmol/L Normal 08/10/2024 98 - 1 07 HHCCT BUN/Creat SerPl 18.0 Ratio Normal 08/10/2024 10 - 25 HH CCT Anion Gap Bld-sCnc 12.0 Normal 08/10/2024 7 - 17 HHCCT Magnesium SerPl-mCnc 2.0 mg/dL Normal 08/10/2024 1.6 - 2.7 HHCCT LMWH PPP Credit Office Manager-aCnc 0.54 IU/mL Normal 08/10/2024 HHCCT Anticoagulant HEPARIN, LOW MOLECULAR WEIGHT Normal 08/10/2024 HHCCT RBC num Bld Auto 3.6 Mil/uL Below low normal 08/10/2024 4.5 - 6.2 HHCCT Hgb Bld-mCnc 10.5 g/dL Below low normal 08/10/2024 13 - 17.7 HHCCT MCHC RBC Auto-mCnc 31.8 g/dL Normal 08/10/2024 30 - 36 HHCCT PMV Bld Auto 9.9 fL Normal 08/10/2024 7.5 - 12.5 HHCCT Platelet num Bld Auto 268.0 Thou/uL Normal 08/10/2024 150 - 450 HHCCT MCV RBC Auto 92.0 fL Normal 08/10/2024 80 - 100 HHCCT RDW RBC Auto-Rto 12.6 % Normal 08/10/2024 11.5 - 14.5 HHCCT WBC num Bld Auto 10.9 Thou/uL Normal 08/10/2024 4 - 11 HHCCT Hct VFr Bld Auto 33.0 % Below low normal 08/10/2024 39 - 54 HHCCT MCH RBC Qn Auto 29.2 pg Normal 08/10/2024 27 - [address] POC Glucose 133.0 mg/dL Above high normal 08/10/2024 65 - 99 HHCCT POC Glucose 159.0 mg/dL Above high normal 08/10/2024 65 - 99 HHCCT LMWH PPP Credit Office Manager-aCnc 0.51 IU/mL Normal 08/10/2024 HHCCT Anticoagulant HEPARIN, LOW MOLECULAR WEIGHT Normal 08/10/2024 HHCCT LMWH PPP Credit Office Manager-aCnc Blood/anticoagulant ratio of specimen is unsatisfactory for testing, please repeat. Normal 08/10/2024 HHCCT Anticoagulant HEPARIN, LOW MOLECULAR WEIGHT Normal 08/09/2024 HHCCT POC Glucose 223.0 mg/dL Above high normal 08/10/2024 65 - 99 HHCCT POC Glucose 229.0 mg/dL Above high normal 08/09/2024 65 - 99 HHCCT LMWH PPP Credit Office Manager-aCnc 0.57 IU/mL Normal 08/09/2024 HHCCT Anticoagulant IV HEPARIN, UNFRACTIONATED Normal 08/09/2024 HHCCT POC Glucose 194.0 mg/dL Above high normal 08/09/2024 65 - 99 HHCCT POC Glucose 111.0 mg/dL Above high normal 08/09/2024 65 - 99 HHCCT LMWH PPP Credit Office Manager-aCnc 0.71 IU/mL Normal 08/09/2024 HHCCT Anticoagulant IV HEPARIN, UNFRACTIONATED Normal 08/09/2024 HHCCT BUN/Creat SerPl 20.0 Ratio Normal 08/09/2024 10 - 25 HH CCT Creat SerPl-mCnc 2.7 mg/dL Above high normal 08/09/2024 0.5 - 1.3 HHCCT Glucose SerPl-mCnc 135.0 mg/dL Above high normal 08/09/2024 65 - 99 HHCCT Chloride SerPl-sCnc 100.0 mmol/L Normal 08/09/2024 98 - 1 07 HHCCT CO2 SerPl-sCnc 21.0 mmol/L Below low normal 08/09/2024 22 - 33 HHCCT Sodium SerPl-sCnc 135.0 mmol/L Below low normal 08/09/2024 1 36 - 145 HHCCT Anion Gap Bld-sCnc 14.0 Normal 08/09/2024 7 - 17 HHCCT Potassium SerPl-sCnc 4.9 mmol/L Normal 08/09/2024 3.4 - 5.3 HHCCT Calcium SerPl-mCnc 8.6 mg/dL Below low normal 08/09/2024 8.7 - 10.5 HHCCT GFR/BSA.pred SerPlBld [id number]-IaWEet 24.0 Below low normal 08/09/2024 59 - HHCCT BUN SerPl-mCnc 54.0 mg/dL Above high normal 08/09/2024 8 - 2 1 HHCCT Magnesium SerPl-mCnc 2.1 mg/dL Normal 08/09/2024 1.6 - 2.7 HHCCT PMV Bld Auto 10.1 fL Normal 08/09/2024 7.5 - 12.5 HHCCT RBC num Bld Auto 3.76 Mil/uL Below low normal 08/09/2024 4.5 - 6.2 HHCCT MCV RBC Auto 90.0 fL Normal 08/09/2024 80 - 100 HHCCT RDW RBC Auto-Rto 12.7 % Normal 08/09/2024 11.5 - 14.5 HHCCT Hgb Bld-mCnc 10.9 g/dL Below low normal 08/09/2024 13 - 17.7 HHCCT Platelet num Bld Auto 423.0 Thou/uL Normal 08/09/2024 150 - 450 HHCCT MCH RBC Qn Auto 29.0 pg Normal 08/09/2024 27 - [address] Hct VFr Bld Auto 33.8 % Below low normal 08/09/2024 39 - 54 HHCCT WBC num Bld Auto 12.3 Thou/uL Above high normal 08/09/2024 4 - 11 HHCCT MCHC RBC Auto-mCnc 32.2 g/dL Normal 08/09/2024 30 - 36 HHCCT POC Glucose 143.0 mg/dL Above high normal 08/09/2024 65 - 99 HHCCT POC Glucose 216.0 mg/dL Above high normal 08/09/2024 65 - 99 HHCCT LMWH PPP Credit Office Manager-aCnc 0.58 IU/mL Normal 08/09/2024 HHCCT Anticoagulant IV HEPARIN, UNFRACTIONATED Normal 08/08/2024 HHCCT POC Glucose 209.0 mg/dL Above high normal 08/08/2024 65 - 99 HHCCT LMWH PPP Credit Office Manager-aCnc 0.67 IU/mL Normal 08/08/2024 HHCCT Anticoagulant IV HEPARIN, UNFRACTIONATED Normal 08/08/2024 HHCCT POC Glucose 147.0 mg/dL Above high normal 08/08/2024 65 - 99 HHCCT POC Glucose 148.0 mg/dL Above high normal 08/08/2024 65 - 99 HHCCT LMWH PPP Credit Office Manager-aCnc 0.84 IU/mL Normal 08/08/2024 HHCCT Anticoagulant IV HEPARIN, UNFRACTIONATED Normal 08/08/2024 HHCCT ALT SerPl-cCnc 19.0 U/L Normal 08/08/2024 10 - 55 HHCC T Albumin/Glob SerPl 0.7 Ratio Below low normal 08/08/2024 1 - 3 HHCCT Bilirub SerPl-mCnc 0.5 mg/dL Normal 08/08/2024 0.2 - 1 HHCCT Globulin Ser Calc-mCnc 4.0 g/dL Above high normal 08/08/2024 1.5 - 3.9 HHCCT Prot SerPl-mCnc 6.9 g/dL Normal 08/08/2024 6.3 - 8.[address] ALP SerPl-cCnc 75.0 U/L Normal 08/08/2024 45 - 128 HHCC T Bilirub Direct SerPl-mCnc 0.1 mg/dL Normal 08/08/2024 0 - 0.2 HHCCT AST SerPl-cCnc 61.0 U/L Above high normal 08/08/2024 10 - 5 5 HHCCT Albumin SerPl-mCnc 2.9 g/dL Below low normal 08/08/2024 3.4 - 4.8 HHCCT Magnesium SerPl-mCnc 2.2 mg/dL Normal 08/08/2024 1.6 - 2.7 HHCCT Troponin T SerPl-mCnc 991.0 ng/L Critically high 08/08/2024 - 23 HHCCT Delta 22.0 Above high normal 08/08/2024 - 3 H HCCT BUN SerPl-mCnc 58.0 mg/dL Above high normal 08/08/2024 8 - 2 1 HHCCT Sodium SerPl-sCnc 135.0 mmol/L Below low normal 08/08/2024 1 36 - 145 HHCCT Chloride SerPl-sCnc 102.0 mmol/L Normal 08/08/2024 98 - 1 07 HHCCT Potassium SerPl-sCnc 4.6 mmol/L Normal 08/08/2024 3.4 - 5.3 HHCCT GFR/BSA.pred SerPlBld [id number]-[id number] 21.0 Below low normal 08/08/2024 59 - HHCCT CO2 SerPl-sCnc 17.0 mmol/L Below low normal 08/08/2024 22 - 33 HHCCT Anion Gap Bld-sCnc 16.0 Normal 08/08/2024 7 - 17 HHCCT Creat SerPl-mCnc 3.0 mg/dL Above high normal 08/08/2024 0.5 - 1.3 HHCCT BUN/Creat SerPl 19.0 Ratio Normal 08/08/2024 10 - 25 HH CCT Glucose SerPl-mCnc 146.0 mg/dL Above high normal 08/08/2024 65 - 99 HHCCT Calcium SerPl-mCnc 8.2 mg/dL Below low normal 08/08/2024 8.7 - 10.5 HHCCT Lactate SerPl-sCnc 1.4 mmol/L Normal 08/08/2024 0.5 - 1.9 HHCCT POC Glucose 160.0 mg/dL Above high normal 08/08/2024 65 - 99 HHCCT POC Glucose 236.0 mg/dL Above high normal 08/08/2024 65 - 99 HHCCT LMWH PPP Credit Office Manager-aCnc 0.62 IU/mL Normal 08/07/2024 HHCCT Anticoagulant IV HEPARIN, UNFRACTIONATED Normal 08/07/2024 HHCCT POC Glucose 200.0 mg/dL Above high normal 08/07/2024 65 - 99 HHCCT CK SerPl-cCnc 214.0 U/L Above high normal 08/07/2024 24 - 20 4 HHCCT Delta NO PREVIOUS RESULT Normal 08/07/2024 - 3 HHCCT Troponin T SerPl-mCnc 1013.0 ng/L Critically high 08/07/2024 - 23 HHCCT LMWH PPP Credit Office Manager-aCnc 0.58 IU/mL Normal 08/07/2024 HHCCT Anticoagulant IV HEPARIN, UNFRACTIONATED Normal 08/07/2024 HHCCT POC Glucose 168.0 mg/dL Above high normal 08/07/2024 65 - 99 HHCCT POC Glucose 148.0 mg/dL Above high normal 08/07/2024 65 - 99 HHCCT Anion Gap Bld-sCnc 16.0 Normal 08/07/2024 7 - 17 HHCCT Calcium SerPl-mCnc 8.5 mg/dL Below low normal 08/07/2024 8.7 - 10.5 HHCCT Glucose SerPl-mCnc 175.0 mg/dL Above high normal 08/07/2024 65 - 99 HHCCT BUN SerPl-mCnc 54.0 mg/dL Above high normal 08/07/2024 8 - 2 1 HHCCT GFR/BSA.pred SerPlBld ITM-HIR-KxUMvx 21.0 Below low normal 08/07/2024 59 - HHCCT CO2 SerPl-sCnc 21.0 mmol/L Below low normal 08/07/2024 22 - 33 HHCCT Sodium SerPl-sCnc 135.0 mmol/L Below low normal 08/07/2024 1 36 - 145 HHCCT Creat SerPl-mCnc 3.0 mg/dL Above high normal 08/07/2024 0.5 - 1.3 HHCCT Chloride SerPl-sCnc 98.0 mmol/L Normal 08/07/2024 98 - 10 7 HHCCT Potassium SerPl-sCnc 4.2 mmol/L Normal 08/07/2024 3.4 - 5.3 HHCCT BUN/Creat SerPl 18.0 Ratio Normal 08/07/2024 10 - 25 HH CCT Magnesium SerPl-mCnc 2.3 mg/dL Normal 08/07/2024 1.6 - 2.7 HHCCT LMWH PPP Credit Office Manager-aCnc 0.16 IU/mL Normal 08/07/2024 HHCCT Anticoagulant IV HEPARIN, UNFRACTIONATED Normal 08/07/2024 HHCCT RDW RBC Auto-Rto 13.1 % Normal 08/07/2024 11.5 - 14.5 HHCCT RBC num Bld Auto 3.4 Mil/uL Below low normal 08/07/2024 4.5 - 6.2 HHCCT MCV RBC Auto 89.0 fL Normal 08/07/2024 80 - 100 HHCCT PMV Bld Auto 10.5 fL Normal 08/07/2024 7.5 - 12.5 HHCCT MCHC RBC Auto-mCnc 33.8 g/dL Normal 08/07/2024 30 - 36 H[facility]CT Platelet num Bld Auto 416.0 Thou/uL Normal 08/07/2024 150 - 450 HHCCT WBC num Bld Auto 10.6 Thou/uL Normal 08/07/2024 4 - 11 HHCCT MCH RBC Qn Auto 30.0 pg Normal 08/07/2024 27 - [address] Hgb Bld-mCnc 10.2 g/dL Below low normal 08/07/2024 13 - 17.7 HHCCT Hct VFr Bld Auto 30.2 % Below low normal 08/07/2024 39 - 54 HHCCT POC Glucose 217.0 mg/dL Above high normal 08/07/2024 65 - 99 HHCCT LMWH PPP Credit Office Manager-aCnc 0.19 IU/mL Normal 08/07/2024 HHCCT Anticoagulant IV HEPARIN, UNFRACTIONATED Normal 08/07/2024 HHCCT POC Glucose 244.0 mg/dL Above high normal 08/07/2024 65 - 99 HHCCT POC Glucose 242.0 mg/dL Above high normal 08/06/2024 65 - 99 HHCCT Magnesium SerPl-mCnc 2.4 mg/dL Normal 08/06/2024 1.6 - 2.7 HHCCT Chloride SerPl-sCnc 98.0 mmol/L Normal 08/06/2024 98 - 10 7 HHCCT BUN SerPl-mCnc 49.0 mg/dL Above high normal 08/06/2024 8 - 2 1 HHCCT Potassium SerPl-sCnc 4.3 mmol/L Normal 08/06/2024 3.4 - 5.3 HHCCT Calcium SerPl-mCnc 8.5 mg/dL Below low normal 08/06/2024 8.7 - 10.5 HHCCT ALT SerPl-cCnc 22.0 U/L Normal 08/06/2024 10 - 55 [facility] T GFR/BSA.pred SerPlBld ECC-XNP-HrAQdw 21.0 Below low normal 08/06/2024 59 - HHCCT Globulin Ser Calc-mCnc 3.8 g/dL Normal 08/06/2024 1.5 - 3.9 HHCCT Glucose SerPl-mCnc 226.0 mg/dL Above high normal 08/06/2024 65 - 99 HHCCT Prot SerPl-mCnc 7.3 g/dL Normal 08/06/2024 6.3 - 8.[address] Albumin SerPl-mCnc 3.5 g/dL Normal 08/06/2024 3.4 - 4.8 HHCCT Sodium SerPl-sCnc 136.0 mmol/L Normal 08/06/2024 136 - 14 5 HHCCT AST SerPl-cCnc 100.0 U/L Above high normal 08/06/2024 10 - 5 5 HHCCT Anion Gap Bld-sCnc 16.0 Normal 08/06/2024 7 - 17 HHCCT Albumin/Glob SerPl 0.9 Ratio Below low normal 08/06/2024 1 - 3 HHCCT ALP SerPl-cCnc 82.0 U/L Normal 08/06/2024 45 - 128 HH[facility] T CO2 SerPl-sCnc 22.0 mmol/L Normal 08/06/2024 22 - 33 HH CCT BUN/Creat SerPl 16.0 Ratio Normal 08/06/2024 10 - 25 HH CCT Bilirub SerPl-mCnc 0.6 mg/dL Normal 08/06/2024 0.2 - 1 HHCCT Creat SerPl-mCnc 3.0 mg/dL Above high normal 08/06/2024 0.5 - 1.3 HHCCT Osmolality SerPl 304.0 mOsm/Kg Above high normal 08/06/2024 275 - 295 H[facility]CT LMWH PPP Credit Office Manager-aCnc 0.32 IU/mL Normal 08/06/2024 H[facility]CT Anticoagulant IV HEPARIN, UNFRACTIONATED Normal 08/06/2024 HHCCT Sodium Ur-sCnc 128.0 mmol/L Normal 08/06/2024 H HCCT UUN Ur-mCnc 174.0 mg/dL Normal 08/06/2024 HHCCT Chloride Ur-sCnc 109.0 mmol/L Normal 08/06/2024 HHCCT Sodium Ur-sCnc 127.0 mmol/L Normal 08/06/2024 H HCCT Potassium Ur-sCnc 10.0 mmol/L Normal 08/06/2024 HHCCT Osmolality Ur 335.0 mOsm/Kg Normal 08/06/2024 50 - 1200 H HCCT POC Glucose 184.0 mg/dL Above high normal 08/06/2024 65 - 99 HHCCT LMWH PPP Credit Office Manager-aCnc 0.43 IU/mL Normal 08/06/2024 HHCCT Anticoagulant IV HEPARIN, UNFRACTIONATED Normal 08/06/2024 HHCCT POC Glucose 236.0 mg/dL Above high normal 08/06/2024 65 - 99 HHCCT Est. average glucose Bld gHb Est-mCnc 146.0 mg/dL Normal 08/06/2024 HHCCT Hgb A1c MFr Bld 6.7 % Above high normal 08/06/2024 - 5.7 HHCCT Urate SerPl-mCnc 9.7 mg/dL Above high normal 08/06/2024 4 - 8 HHCCT Sodium SerPl-sCnc 138.0 mmol/L Normal 08/06/2024 136 - 14 5 HHCCT BUN/Creat SerPl 18.0 Ratio Normal 08/06/2024 10 - 25 HH CCT Creat SerPl-mCnc 2.7 mg/dL Above high normal 08/06/2024 0.5 - 1.3 HHCCT Glucose SerPl-mCnc 204.0 mg/dL Above high normal 08/06/2024 65 - 99 HHCCT Potassium SerPl-sCnc 4.4 mmol/L Normal 08/06/2024 3.4 - 5.3 HHCCT Anion Gap Bld-sCnc 17.0 Normal 08/06/2024 7 - 17 HHCCT Chloride SerPl-sCnc 101.0 mmol/L Normal 08/06/2024 98 - 1 07 HHCCT BUN SerPl-mCnc 48.0 mg/dL Above high normal 08/06/2024 8 - 2 1 HHCCT CO2 SerPl-sCnc 20.0 mmol/L Below low normal 08/06/2024 22 - 33 HHCCT Calcium SerPl-mCnc 8.4 mg/dL Below low normal 08/06/2024 8.7 - 10.5 HHCCT GFR/BSA.pred SerPlBld [id number]-[id number]-[id number] 24.0 Below low normal 08/06/2024 59 - HHCCT HDLc SerPl-mCnc 53.0 mg/dL Normal 08/06/2024 39 - HH CCT LDLc SerPl Calc-mCnc 41.0 mg/dL Normal 08/06/2024 - 130 HHCCT HDLc SerPl 2.0 Ratio Normal 08/06/2024 0 - 5 HHCCT Cholest SerPl-mCnc 106.0 mg/dL Normal 08/06/2024 - 200 HHCCT Trigl SerPl-mCnc 61.0 mg/dL Normal 08/06/2024 - 150 H HCCT CK SerPl-cCnc 462.0 U/L Critically high 08/06/2024 24 - 204 HHCCT Magnesium SerPl-mCnc 2.7 mg/dL Normal 08/06/2024 1.6 - 2.7 HHCCT Delta 730.0 Above high normal 08/06/2024 - 3 H HCCT Troponin T SerPl-mCnc 2037.0 ng/L Critically high 08/06/2024 - 23 HHCCT MCHC RBC Auto-mCnc 32.7 g/dL Normal 08/06/2024 30 - 36 HHCCT RDW RBC Auto-Rto 13.0 % Normal 08/06/2024 11.5 - 14.5 HHCCT PMV Bld Auto 10.3 fL Normal 08/06/2024 7.5 - 12.5 HHCCT Hct VFr Bld Auto 31.8 % Below low normal 08/06/2024 39 - 54 HHCCT Hgb Bld-mCnc 10.4 g/dL Below low normal 08/06/2024 13 - 17.7 HHCCT MCH RBC Qn Auto 29.4 pg Normal 08/06/2024 27 - [address] MCV RBC Auto 90.0 fL Normal 08/06/2024 80 - 100 HHCCT WBC num Bld Auto 11.3 Thou/uL Above high normal 08/06/2024 4 - 11 HHCCT RBC num Bld Auto 3.54 Mil/uL Below low normal 08/06/2024 4.5 - 6.2 HHCCT Platelet num Bld Auto 394.0 Thou/uL Normal 08/06/2024 150 - 450 HHCCT Troponin T SerPl-mCnc 2392.0 ng/L Critically high 08/06/2024 - 23 HHCCT Delta 375.0 Above high normal 08/06/2024 - 3 H HCCT Leukocyte esterase Ur Ql Strip Trace Abnormal 08/06/2024 - CCT Hyaline Casts num/area UrnS LPF 5.0 PER LPF Above high normal 08/06/2024 0 - 4 HHCCT Color Ur Yellow Normal 08/06/2024 HHCCT Bilirub Ur Strip-mCnc Negative Normal 08/06/2024 - CCT Glucose Ur Strip-mCnc 0.0 mg/dL Normal 08/06/2024 0 - 99 HHCCT Hgb Ur Ql Strip Large Abnormal 08/06/2024 - [facility] CT Sp Gr Ur Strip 1.009 Normal 08/06/2024 1.003 - 1.03 HHCCT Clarity Ur Slightly cloudy Normal 08/06/2024 HH CCT WBC num/area UrnS HPF 3.0 per hpf Normal 08/06/2024 0 - 4 HHCCT Ketones Ur Strip-mCnc Negative Normal 08/06/2024 - CCT pH Ur Strip 5.0 Normal 08/06/2024 5 - 8 HHCCT Nitrite Ur Ql Strip Negative Normal 08/06/2024 - CCT RBC num/area UrnS HPF >25.0 per hpf Above high normal 08/06/2024 0 - 4 HHCCT Prot Ur Strip-mCnc Moderate (100 mg/dL) Abnormal 08/06/2024 - CCT Est. average glucose Bld gHb Est-mCnc 134.0 mg/dL Normal 08/06/2024 HHCCT Hgb A1c MFr Bld 6.3 % Above high normal 08/06/2024 - 5.7 HHCCT pro BNP, N-terminal >40646.0 pg/mL Above high normal 025 - 450 HHCCT Delta NO PREVIOUS RESULT Normal 08/06/2024 - 3 HHCCT Troponin T SerPl-mCnc 2767.0 ng/L Critically high 08/06/2024 - 23 HHCCT Magnesium SerPl-mCnc 1.2 mg/dL Below low normal 08/06/2024 1.6 - 2.7 HHCCT Calcium SerPl-mCnc 8.2 mg/dL Below low normal 08/06/2024 8.7 - 10.5 HHCCT CO2 SerPl-sCnc 20.0 mmol/L Below low normal 08/06/2024 22 - 33 HHCCT BUN/Creat SerPl 18.0 Ratio Normal 08/06/2024 10 - 25 HH CCT Potassium SerPl-sCnc 4.9 mmol/L Normal 08/06/2024 3.4 - 5.3 HHCCT Creat SerPl-mCnc 2.5 mg/dL Above high normal 08/06/2024 0.5 - 1.3 HHCCT BUN SerPl-mCnc 45.0 mg/dL Above high normal 08/06/2024 8 - 2 1 HHCCT Chloride SerPl-sCnc 103.0 mmol/L Normal 08/06/2024 98 - 1 07 HHCCT Glucose SerPl-mCnc 193.0 mg/dL Above high normal 08/06/2024 65 - 99 HHCCT Sodium SerPl-sCnc 138.0 mmol/L Normal 08/06/2024 136 - 14 5 HHCCT GFR/BSA.pred SerPlBld HLF-CGU-GmOUev 26.0 Below low normal 08/06/2024 59 - HHCCT Anion Gap Bld-sCnc 15.0 Normal 08/06/2024 7 - 17 HHCCT TSH SerPl DL<=0.005 mIU/L-aCnc 1.91 mIU/L Normal 08/06/2024 0.27 - 4.2 HHCCT Phosphate SerPl-mCnc 3.6 mg/dL Normal 08/06/2024 2.7 - 4.5 HHCCT aPTT PPP 186.0 seconds Critically high 08/06/2024 25 - 36 HHCCT Anticoagulant IV HEPARIN, UNFRACTIONATED Normal 08/06/2024 HHCCT INR PPP 1.2 Normal 08/06/2024 HHCCT Prothrombin time 13.8 seconds Above high normal 08/06/2024 1 0 - 13.5 HHCCT Anticoagulant IV HEPARIN, UNFRACTIONATED Normal 08/06/2024 HHCCT Neutrophils/leuk NFr Bld Auto 81.4 % Normal 08/06/2024 HHCCT Eosinophil/leuk NFr Bld Auto 0.8 % Normal 08/06/2024 HHCCT WBC num Bld Auto 11.4 Thou/uL Above high normal 08/06/2024 4 - 11 HHCCT MCHC RBC Auto-mCnc 32.8 g/dL Normal 08/06/2024 30 - 36 HHCCT Lymphocytes/leuk NFr Bld Auto 8.3 % Normal 08/06/2024 HHCCT MCV RBC Auto 90.0 fL Normal 08/06/2024 80 - 100 HHCCT Imm Granulocytes num Bld Auto 0.08 Thou/uL Normal 08/06/2024 0 - 0.1 HHCCT RDW RBC Auto-Rto 13.1 % Normal 08/06/2024 11.5 - 14.5 HHCCT Basophils num Bld Auto 0.05 Thou/uL Normal 08/06/2024 0 - 0.2 HHCCT Monocytes num Bld Auto 0.95 Thou/uL Normal 08/06/2024 0.2 - 1.5 HHCCT Platelet num Bld Auto 386.0 Thou/uL Normal 08/06/2024 150 - 450 HHCCT Monocytes/leuk NFr Bld Auto 8.4 % Normal 08/06/2024 HHCCT Hct VFr Bld Auto 29.6 % Below low normal 08/06/2024 39 - 54 HHCCT Lymphocytes num Bld Auto 0.94 Thou/uL Below low normal 08/06/2024 1.5 - 4.5 HHCCT Neutrophils num Bld Auto 9.26 Thou/uL Above high normal 08/06/2024 2 - 7.5 HHCCT PMV Bld Auto 10.3 fL Normal 08/06/2024 7.5 - 12.5 HHCCT Basophils/leuk NFr Bld Auto 0.4 % Normal 08/06/2024 HHCCT RBC num Bld Auto 3.3 Mil/uL Below low normal 08/06/2024 4.5 - 6.2 HHCCT Hgb Bld-mCnc 9.7 g/dL Below low normal 08/06/2024 13 - 17.7 CCT MCH RBC Qn Auto 29.4 pg Normal 08/06/2024 27 - [address] Imm Granulocytes/leuk NFr Bld Auto 0.7 % Normal 08/06/2024 HHCCT Eosinophil num Bld Auto 0.09 Thou/uL Normal 08/06/2024 0 - 0.7 HHCCT LMWH PPP Credit Office Manager-aCnc 1.38 IU/mL Normal 08/06/2024 [facility] Anticoagulant IV HEPARIN, UNFRACTIONATED Normal 08/06/2024 CCT POC Glucose 193.0 mg/dL Above high normal 08/06/2024 65 - 99 CCT History of Medication Use Medication Directions Dispensed Refills Start Date End Date [facility] amitriptyline (ELAVIL) 25 MG tablet Take 1 tablet (25 mg total) by mouth nightly. suspended amLODIPine (NORVASC) 10 MG tablet Take 1 tablet (10 mg total) by mouth daily. suspended esomeprazole (NexIUM) 40 MG capsule Take 1 capsule (40 mg total) by mouth every morning before breakfast. suspended glipiZIDE (GLUCOTROL) 10 MG tablet Take 1 tablet (10 mg total) by mouth 2 (two) times a day before meals. suspended hydroCHLOROthiazide (HYDRODIURIL) 12.5 MG tablet Take 1 tablet (12.5 mg total) by mouth daily. suspended melatonin 10 MG Tab tablet Take 10 mg by mouth nightly. suspended metoPROLOL SUCCINATE (TOPROL-XL) 100 MG 24 hr tablet Take 1 tablet (100 mg total) by mouth daily. suspended Multiple Vitamin (multivitamin) capsule Take 1 capsule by mouth daily. suspended simvastatin (ZOCOR) 10 MG tablet Take 1 tablet (10 mg total) by mouth nightly. suspended Problems Problem Status Onset Date Problem Type Date of Resoluti on Source NSTEMI (non-ST elevated myocardial infarction) active 2024-08-05 ProblemAct [facility] Type 2 diabetes mellitus active 2024-08-05 ProblemAct [facility] Hypertension active 2024-08-05 ProblemAct [facility] GERD (gastroesophageal reflux disease) active 2024-08-05 ProblemAct [facility] Encounters Encounter Type Encounter Reason Primary Diagnosis Location Date Inpatient Presence of aortocoronary bypass graft Presence of aortocoronary bypass graft [facility] 08/05/2024 Care Team Organization Name Specialty Phone Email Start Date End Da te [facility] PCP Creative Art Therapist 08/12/2024 09/12/2024 [facility] LARA GONZALES Primary Care 08/06/2024 [facility] NO PCP Primary Care 08/06/2024 [facility] 08/05/2024
--- OUTSIDE RECORDS SUMMARY | 2024-12-29 12:55 | XMS_ITS | Clinical Summary ---
Author Organization [facility] Address [address] [facility] [address] [place] [address] Phone Care Team Providers Care Extrusion Press Operator Name Role Phone Uma Chung MD [...] DOS VECES AL D A EN LA HI RAVI Y EN LA NOCHE 1 Active [...] Visual Foot Exam 07/04/2020 Diabetes: Hemoglobin A1C 11/06/202408/06/ 025, 08/05/2024, 05/06/2024, Additional history exists Influenza Vaccine (#1) 2025 05/06/2024, 2017 Pneumococcal Vaccine: 50+ Years Completed 07/05/2023 Pneumococcal Vaccine: Peds (0 to 5 Years) and At-Risk Patients (6 to 49 Years) Discontinued 07/05/2023 Hepatitis B Vaccine Aged Out No longe [...] % PVNMA 03/29/2020 us [facility]version LAB [id number] LICITED RESULTS Final Result PVNMA from Last 3 Months or Most Recently Relevant to Health Maintenance Insurance [facility] [place] [place] [id number] [employer] Care Teams Extrusion Press Operator Relationship Specialty Start Date End Date Uma Chung MD [address] [place] [phone] PCP - General 06/13/20
--- OUTSIDE RECORDS SUMMARY | 2024-12-29 12:56 | XMS_ITS | Clinical Summary ---
Author Organization [facility] Address [address] [facility] [address] [place] [address] Phone Care Team Providers Care Knotting Machine Operator Name Role Phone Unavailable Primary Care Provider Unavailabl e Social History Tobacco Use Types Packs/Day Years Used Date Smoking Tobacco: Never Assessed Education Answer Date Recorded Are you interested in more education? Not on sussy e 09/03/2024 Are you concerned about learning? Not on file 09/03/2024 No 09/03/2024 No 09/03/2024 Digital Access Answer Date Recorded No 09/03/2024 No 09/03/2024 Reliable internet access at home? Not on file 09/03/2024 Device with a working camera? Not on file Sex and Gender Information Value Date Recorded Sex Assigned at Not on file Legal Sex Male 6:57 PM EST Gender Identity Not on file Sexual Orientation Not on file Plan of Treatment Not on file Medical Devices Not on file Additional Source Comments The information contained in this document represents components of the legal health record. It is not the complete legal health record.[facility]
--- OUTSIDE RECORDS SUMMARY | 2024-12-29 12:56 | XMS_ITS | Encounter Summary ---
Author Organization [employer] Address [address] [facility] [address] [place] [address] Care Team Providers Care Router Tender Name Role Phone Uma Chung MD Primary Care Provide r Reason for Visit * Reason Onset Date Comments Nurse Triage 01/14/2024 Encounter Details Date Type Department Care Team ([facility] st Contact Info) Description 01/14/2024 Telephone [facility] [address] [place] [address] Uma Chung MD [address] [place] [address] Nurse Triage Social History Tobacco Use Types [...] Care Team (Late st Contact Info) Description 02/26/2025 10:00 AM EDT Telemedicine [facility] [address] [place] [phone] Emi Harrell RN documented as of this encounter Visit Diagnoses Not on filedocumented in this encounter Additional Health Concerns Assessment Noted Time PHQ-9 Depression Total Score: 0 12/13/19 23 10:21 AM EDT documented as of this encounter Care Teams Router Tender Relationship Specialty Start Date End Date Uma Chung MD [address] [place] [address] PCP - General Family Medicine 02/21/18 [facility] 09/15/24 documented as of this encounter
--- OUTSIDE RECORDS SUMMARY | 2024-12-29 12:56 | XMS_ITS | Clinical Summary ---
Author Organization [facility] Address [address] [place] [address] Care Team Providers Care Nutrition Therapist Name Role Phone Uma Chung MD Primary [...] Hypertension 08/05/2024 Type 2 diabetes mellitus 08/05/2024 Social History Tobacco Use Types Packs/Day Years Used Date Smoking Tobacco: Never Assessed [facility] Utilities Answer Date Recorded In the past 12 months has e [place], retickr, oil, or water [facility] threatened to shut off services in your [...] any time in the past 12 m [facility], were you homeless or living in a long term (including now)? No 08/06/2024 Sex and Gender [...] 89 09/02/2024 11:45 AM EDT Temperature 36.1 C (97 F) 09/02/2024 11:45 AM EDT Respiratory Rate 19 [...] 1948 Foot Exam 1958 Ophthalmology Exam 1958 Microalbumin/Creatinine Ratio Urine 1966 DTaP/Tdap/Td Vaccines (1 [...] this topic Medical Devices Implanted Type Area Associate Artistic Director Device Identifier Shelf Expiration Date Model / Serial / Lot [id number] Atriclip Flex Device, 35mm Clip - [id number] Implanted:Qty: 1 on 08/13/2024 by Celena Chang MD at [facility] Clip N/A: Heart [employer] 06/03/2027 [id number] / [id number] Procedures Procedure Name Priority Date/Time Associated Diagnosis Comments BASIC METABOLIC PANEL Routine 09/02/2024 5:13 AM EDT HEMOGLOBIN A1C WITH ESTIMATED AVERAGE GLUCOSE Routine 08/06/2024 6:41 AM EST LIPID PANEL Routine 08/06/2024 6:41 AM EST from Last 3 Months or Most Recently Relevant to Health Maintenance Results * (ABNORMAL) BASIC METABOLIC PANEL (09/02/2024 5:13 AM EDT) Glucose 113(H) 65 - 99 mg/dL 09/02/2024 7:06 AM [facility] Comment:Fasting: <100 mg/dL, Non-Fasting: <200 mg/dL (ADA 2004) Blood Urea Nitrogen (BUN) 50(H) 8 - 21 mg/dL 09/02/2024 7:06 AM [facility] Creatinine 3.0(H) 0.5 - 1.3 mg/dL 09/02/2024 7:06 AM [facility] eGFR 21(L) >59 09/02/2024 7:06 AM [facility] Comment:CKD-EPI (2020) in mL /min/1.73 sq meters. Sodium 138 136 - 145 mmol/L 09/02/2024 7:06 AM [facility] Potassium 4.9 3.4 - 5.3 mmol/L 09/02/2024 7:06 AM [facility] Chloride 108(H) 98 - 107 mmol/L 09/02/2024 7:06 AM [facility] CO2 21(L) 22 - 33 mmol/L 09/02/2024 7:06 AM [facility] Anion Gap 9 7 - 17 09/02/2024 7:06 AM [facility] Calcium 8.6(L) 8.7 - 10.5 mg/dL 09/02/2024 7:06 AM [facility] BUN/Creatinine Ratio 17 10.0 - 25.0 Ratio 09/02/2024 7:06 AM [facility] Blood Blood specimen / Unknown 09/02/2024 5:13 AM EDT 09/02/2024 6:23 AM EDT [facility] BLOOD ORDERABLES Final Result [address] [address], [address] [address] * (ABNORMAL) Hemoglobin A1c with Estimated Average Glucose (08/06/2024 6:41 AM EST) Hemoglobin A1C 6.7(H) <5.7 % 08/06/2024 12:44 PM EST [facility] Comment: A1c% Interpretation 5.7 - 6.0 Increase risk of diabetes 6.1 - 6.4 Higher risk of diabetes > or = 6.5 Consistent with diabetes Diabetes Care, 33(Supp 1):S1-S61, 2009 Estimated Average Glucose 146 mg/dL 08/06/2024 12:44 PM [facility] Blood Blood specimen / Unknown 08/06/2024 6:41 AM EST 08/06/2024 7:37 AM EST Jessicarenny Valentin BUSINESS COMPUTERS TEACHER LAB BLOOD ORDERABLES Final Res ult Performing Organization Address City/[facility]/ZIP Co de Phone Number [address] [address], [address] [address] * LIPID PANEL (08/06/2024 6:41 AM EST) [facility] Cholesterol, Total 106 <200 mg/dL 2024 8:26 AM [facility] Triglycerides 61 <150 mg/dL 08/06/2024 8:26 AM [facility] Cholesterol, HDL 53 >39 mg/dL 08/07/19 8:26 AM [facility] Estimated LDL 41 <130 mg/dL 08/06/2024 8:26 AM [facility] Comment: NCEP Guidelines: < 100 mg/dL Optimal 100 - 129 mg/dL Near Optimal/Above Optimal 130 - 159 mg/dL Borderline High 160 - 189 mg/dL High >/= 190 mg/dL Very High Cholesterol/HDL Ratio 2.0 0.0 - 5.0 Ratio 08/06/2024 8:26 AM [facility] Comment: Relative Risk Ratio - Male Ratio - Female 0.5 3.4 3.3 1.0 5.0 4.4 2.0 9.6 7.1 3.0 23.4 11.0 08/06/2024 6:41 AM EST 08/06/2024 7:37 AM EST us Jessicarenny Valentin BUSINESS COMPUTERS TEACHER LAB BLOOD ORDERABLES Final Res ult Performing Organization Address City/[facility]/ZIP Co de Phone Number [address] [address], [address] [place] [address] from Last 3 Months or Most Recently Relevant to Health Maintenance Insurance [facility] MEDICARE OUT OF NETWORK MEDICARE PART A & B [facility] MEDICARE OUT OF NETWORK [facility] Advance Directives Documents on File Type Date Recorded Patient Invoice Coder Expl anation Advance Directive-Scan 08/18/2024 [facility] PROXY 08/18/2024 * Full Code (Latest Code Status on File) Date Activated Date Inactivated Comments 08/13/2024 3:17 PM * Full Code Date Activated Date Inactivated Comments 08/05/2024 9:41 PM 08/13/2024 3:17 PM Healthcare Agents on File Name Relationship Healthcare Agent Relationship Communication Phil Kebede Healthcare labor union business representative [facility]. [facility] Care Invoice Coder Care Teams Nutrition Therapist Relationship Specialty Start Date End Date Uma Chung MD [address] [place] [address] PCP - General Internal Medicine 08/06/24
--- OUTSIDE RECORDS SUMMARY | 2024-12-29 12:56 | XMS_ITS | Data Portability ---
Author Organization [employer] [facility] Address [address] [place] [address] Care Team Providers Care Panel Raiser Operator Name Role Phone LARA GARCIA Primary Care Provider [facility] OTHER Assessment No assessment recorded. Plan of [...] in Arterial blood by Pulse oximetry Systolic And Diastolic Systolic And Diastolic Provider Name and Address Organization Details Last Updated DateTime 4 16 /min 64 /min 97.2 [degF] 99 % 99 % 170/82 mm[Hg] 161/81 mm[Hg] Not Available [employer] - production 4 14:38:29 Social History None recorded. Functional Status None recorded. Mental Status None recorded. Family History Nothing Reported. Medical History No medical history recorded. Past Encounters Encounter ID Performer Location Encounter Start Date Encounter Closed Date Diagnosis/Indication Diagnosis SNOMED-CT Code Diagnosis ICD10 Code Diagnosis Note [id number] Porter Bran MD Main - [address] [phone] 04/25/2024 14:33:24 04/27/2024 17:48:06 Acute exacerbation of chronic obstructive pulmonary disease 338432258 J44.1 As noted, we were called to see this patient regarding concerns of need for post-d/c check. Evaluation in the field was performed by my tool technician colleague, as noted above, I provided real-time [...] so no role for abx here. Plan:[facility] Primary caredanielle visit this week [...] Pedersen Member ID Guarantor Name 04/22/2024 1 [facility] - DOS ON OR AFTER 2022 - DUAL ELIGIBLE - SNF OPTIONS AND ONE CARE (MEDICARE REPLACEMENT/ADV ANTAGE - HMO) Phil Kebede [id number] Phil Kebede
== END 2024-12-29 12:18 | disposition home or self-care (01) ==
LOC: HO.HKA 11:59
PROVIDERS: PCP Internal Medicine; Visit Provider Internal Medicine Hypertension Specialist
DX: N18.9 Chronic kidney disease, unspecified (principal); D64.9 Anemia, unspecified; E11.9 Type 2 diabetes mellitus without complications
CPT/HCPCS: 99214

== ENCOUNTER → 2024-12-29 11:58 | Outpatient (BNVA) | payer OTHER, SELFPAY | PROVIDERS: PCP Internal Medicine; Visit Provider Internal Medicine Hypertension Specialist | DX: E11.22 Type 2 diabetes mellitus with diabetic chronic kidney disease (principal); N18.4 Chronic kidney disease, stage 4 (severe); D64.9 Anemia, unspecified | CPT/HCPCS: 99212 ==

== ENCOUNTER 2024-12-29 12:23 | Outpatient (REF) | payer OTHER, SELFPAY ==
[2024-12-29 13:32] LABS: Hematocrit 29.4 % (42.0-52.0); Hemoglobin 9.3 g/dl (14.0-18.0); Mean Corpuscular HGB Conc 31.6 g/dl (31.0-36.0); Mean Corpuscular Hemoglobin 29.0 pg (27.0-33.0); Mean Corpuscular Volume 91.6 fL (80.0-98.0); NRBC Abs Auto 0.000 X10*3/uL (0.0-0.012); NRBC Pct Auto 0.0 /100WBC (0.0-0.2); Platelet Count 284 X10*3/uL (160-400); Red Blood Count 3.21 X10*6/uL (4.60-5.80); White Blood Count 7.7 X10*3/uL (4.8-10.8)
[2024-12-29 13:58] LABS: Anion Gap 13 (12-20); Blood Urea Nitrogen 32 mg/dL (9-16); Calcium 8.3 mg/dL (8.4-10.2); Carbon Dioxide 25 mmol/L (22-29); Chloride 109 mmol/L (96-108); Estimated Glomerular Filt Rate 19; Iron 50 mcg/dL (45-160); Percent Iron Saturation 29 % (15-50); Potassium 5.0 mmol/L (3.3-5.1); Sodium 142 mmol/L (135-145); Total Iron Binding Capacity 174 mcg/dL (228-428); Unsaturated Iron Binding 124 ug/dL
[2024-12-29 14:07] LABS: Ferritin 295 ng/mL (20-250)
== END 2024-12-29 12:24 | disposition home or self-care (01) ==
LOC: HO.10HDL 12:23
PROVIDERS: Visit Provider Internal Medicine Hypertension Specialist
DX: N18.9 Chronic kidney disease, unspecified (principal)
CPT/HCPCS: 36415; 80048; 82728; 83540; 85027

== ENCOUNTER 2025-03-02 09:14 | Outpatient (AMB) | payer OTHER, SELFPAY ==
[2025-03-02 09:28] VITALS: BP 110/60; PULSE 80; O2SAT 96; BMI 25.4
--- NOTE | 2025-03-02 09:28 | HO.NEPHOV_ITS ---
Vital Signs 03/02/25 09:28 Height 6 ft Weight 187 lb BMI 25.4 BP 110/60 Blood Pressure Location Rt brachial Position Sitting Pulse 80 Pulse Source Pulse Oximeter Pulse Oximetry (%) 96 Oxygen Delivery Method Room Air Intake Visit Reasons: FU Fish Cake Maker Required: No Fish Cake Maker Services: Fish Cake Maker Offered & Declined (Patient understands Citizen Of [place] and son is there to translate ) Accompanied by: Son Allergies No Known Allergies Allergy (Verified 03/02/25 09:31) Medication List - Last Reconciled 03/02/25 by Evan Donald MD acetaminophen 975 mg PO TID PRN aspirin 1 tab PO DAILY atorvastatin 80 mg PO BEDTIME clopidogrel 75 mg PO DAILY cromolyn 4% 1 drp ophthalmic (eye) DAILY PRN dapagliflozin propanediol (Farxiga) 10 mg PO DAILY furosemide 20 mg PO DAILY lidocaine 5% 1 patch topical DAILY linagliptin (Tradjenta) 5 mg PO DAILY melatonin 10 mg PO BEDTIME PRN metoprolol tartrate 12.5 mg PO BID oxycodone-acetaminophen 5-325 mg 1 tab PO Q6H PRN pantoprazole 40 mg PO DAILY polyethylene glycol 3350 17 grams PO DAILY sacubitril-valsartan 24-26 mg (Entresto) 1 tab PO BID sennosides (senna) 8.6 mg PO BEDTIME tamsulosin 0.8 mg PO DAILY thiamine HCl (vitamin B1) 100 mg PO DAILY vericiguat (Verquvo) 5 mg PO DAILY HPI Comments Details: 74-year-old male with a h/o CAD, HTN and DM refered for chronic kidney disease management and declining renal function . He has a horseshoe kidney and underwent a CT scan in October 2023 revealing multiple renal cysts. Current renal function is significantly reduced, with a GFR of 21%, and anemia is present with hemoglobin levels at 7.5 g/dL. The patient had a cardiac bypass surgery recently, and renal concerns were highlighted during cardiac care follow-up. He reports minor intermittent urinary issues and historical swelling in the lower extremities. No significant current respiratory issues, although shortness of breath was noted previously. The patient currently avoids NSAIDs due to past recommendations. 03/02/25 - The patient is a 74-year-old male presenting with chronic kidney disease management. - Coronary artery disease with ongoing management. - Hypertension managed to maintain blood pressure between 110/120 mmHg. - Diabetes mellitus with associated chronic kidney disease. - Horseshoe kidney with multiple renal cysts. - Kidney function at 19%, affected by cardiac medications. - Blood pressure as low as 90/50 mmHg, causing dizziness. [facility] Medical History Benign prostatic hyperplasia with lower urinary tract symptoms GERD (gastroesophageal reflux disease) Social History Household Members: None Housing: Apartment Do you presently have visiting nurse or other home services: No Alcohol intake: never Patient Tobacco Use Status: Never used Tobacco Second Hand Smoke Exposure: No Physical Exam Exam Exam: BP 100/60 sitting 90/60 standing Vital Signs: Last Vital Signs Pulse 80 03/02/25 09:28 BP 110/60 03/02/25 09:28 Pulse Ox 96 03/02/25 09:28 Oxygen Delivery Method Room Air 03/02/25 09:28 BMI result Body Mass Index 25.4 Comfortable Neck supple no JVD. Lungs entry equal no rales. Heart S1-S2 heard no gallop or rub. Abdomen soft nontender. Neuro alert awake oriented. No asterixis. Extremities no edema. Results Reviewed Nephrology Results: Hgb, (14.0-18.0) 9.3 g/dl L 12/29/24 WBC, (4.8-10.8) 7.7 X10*3/uL 12/29/24 Plt Count, (160-400) 284 X10*3/uL Δ 12/29/24 Sodium, (135-145) 142 mmol/L 12/29/24 Potassium, (3.3-5.1) 5.0 mmol/L 12/29/24 Chloride, (96-108) 109 mmol/L H 12/29/24 Carbon Dioxide, (22-29) 25 mmol/L 12/29/24 BUN, (9-16) 32 mg/dL H 12/29/24 Creatinine, (0.5-1.4) 3.21 mg/dL H 12/29/24 Calcium, (8.4-10.2) 8.3 mg/dL L 12/29/24 Phosphorus, (2.7-4.5) 3.6 mg/dL 11/10/24 PTH Intact, (8.7-77.1) 234.4 pg/mL H 11/10/24 Renal US 01/05/21 Assessment & Plan Assessment & Plan (1) CKD (chronic kidney disease): Comment: In a setting of long standing DM/HTN h/o Horseshoe kidney with multiple cysts Code(s): N18.9 - Chronic kidney disease, unspecified Category: Medical Plan: Renal function has worsened Most likely due to hypoperfusion vs natural progression Will decrease LASIX to 20 mg QOD and reassess (2) Anemia: Comment: Post OP anemia vs EPO deficiency Code(s): D64.9 - Anemia, unspecified Category: Medical Plan: Watch HCT and Iron store May need Epogen (3) Diabetes mellitus: Code(s): E11.9 - Type 2 diabetes mellitus without complications Category: Medical Plan: Maintain A1C < 7% Plan Management per PCP Concur with SGLT-2 inhibitors Orders: Orders Basic Metabolic Panel 2 Months N18.9 - Chronic kidney disease, unspecified Coding Level of Care Code Est Pt Level 4 (93313) Diagnoses CKD (chronic kidney disease) N18.9 Anemia D64.9 Diabetes mellitus E11.9
--- OUTSIDE RECORDS SUMMARY | 2025-03-02 09:59 | XMS_ITS | Encounter Summary ---
Author Organization [employer] Address [address] [facility] [place] [address] Care Team Providers Care Numerical Control Machine Operator Name Role Phone Uma Chung MD Primary Care Provide r Encounter Details Date Type Department Care Team (Late st Contact Info) Description 03/21/2023 Orders Only [facility] [address] [place] [address] Lay Grimaldo LPN Social History Tobacco Use [...] as of this encounter Plan of Treatment Not on file documented as of this encounter Visit Diagnoses Not on filedocumented in this encounter Additional Health Concerns Assessment Noted Time PHQ-9 Depression Total Score: 0 12/13/19 23 10:21 AM EDT documented as of this encounter Care Teams Numerical Control Machine Operator Relationship Specialty Start Date End Date Uma Chung MD [address] [place] [address] PCP - General Family Medicine 02/21/18 Altranais 09/15/24 documented as of this encounter
--- OUTSIDE RECORDS SUMMARY | 2025-03-02 09:59 | XMS_ITS | Clinical Summary ---
Author Organization [facility] Address [address] [facility] [address] [place] [address] Phone Care Team Providers Care Missile Inspector Preflight Name Role Phone Uma Chung MD Primary [...] DOS VECES AL D A EN LA CA RAVI Y EN LA NOCHE 1 Active [...] % PVNMA 03/29/2020 us [facility] [id number] LICITED RESULTS Final Result PVNMA from Last 3 Months or Most Recently Relevant to Health Maintenance Insurance [facility] [place]SE [place] [id number] [place] Care Teams Missile Inspector Preflight Relationship Specialty Start Date End Date Uma Chung MD [address] [place] [id number] PCP - General 06/13/20
--- OUTSIDE RECORDS SUMMARY | 2025-03-02 09:59 | XMS_ITS | Encounter Summary ---
Author Organization [employer] Address [address] [facility] 7t [place] [address] Care Team Providers Care Truant Officer Name Role Phone Uma Chung MD Primary Care Provide r Encounter Details Date Type Department Care Team (Late st Contact Info) Description 02/08/2023 Orders Only [facility] MEDICINE [address] [place] [address] Provider, Historical, Social History Tobacco Use Types Packs/Day Years [...] on file documented as of this encounter Procedures Procedure [...] documented as of this encounter Care Teams Truant Officer Relationship Specialty Start Date End Date Uma Chung MD [address] [place] [address] PCP - General Family Medicine 02/21/18 Altranais 09/15/24 documented as of this encounter
--- OUTSIDE RECORDS SUMMARY | 2025-03-02 09:59 | XMS_ITS | Encounter Summary ---
Author Organization [employer] Address [address] [facility] 7t [place] [address] Care Team Providers Care Tree Trimmer Name Role Phone Uma Chung MD Primary Care Provide r Reason for Visit * Reason Onset Date Comments Med Refill 01/10/2023 Encounter Details Date Type Department Care Team ([facility] st Contact Info) Description 01/10/2023 Telephone [facility] MEDICINE [address] [place] [address] Uma Chung MD [address] [place] [address] Med Refill Social History Tobacco Use Types [...] documented in this encounter Plan of Treatment Not on file documented as of this encounter Visit Diagnoses Not on filedocumented in this encounter Additional Health Concerns Assessment Noted Time PHQ-9 Depression Total Score: 0 12/13/19 23 10:21 AM EDT documented as of this encounter Care Teams Tree Trimmer Relationship Specialty Start Date End Date Uma Chung MD [address] [place] [address] PCP - General Family Medicine 02/21/18 Altranais 09/15/24 documented as of this encounter
--- OUTSIDE RECORDS SUMMARY | 2025-03-02 09:59 | XMS_ITS | Encounter Summary ---
Author Organization [email or web address] Address [address] [facility] [address] [place] [address] Care Team Providers Care Board Certified Music Therapist Name Role Phone Uma Chung MD Primary Care Provide r Reason for Visit * Reason Comments Med Refill Encounter Details Date Type Department Care Team ([facility] st Contact Info) Description 03/01/2023 Refill [facility] MEDICINE [address] [place] [address] Uma Chung MD [address] [place] [address] Other chronic pain Social History Tobacco Use [...] documented as of this encounter Care Teams Board Certified Music Therapist Relationship Specialty Start Date End Date Uma Chung MD [address] [place] [address] PCP - General Family Medicine 02/21/18 Altranais 09/15/24 documented as of this encounter
--- OUTSIDE RECORDS SUMMARY | 2025-03-02 09:59 | XMS_ITS | Clinical Summary ---
Author Organization [facility] Address [address] [facility] [address] [place] [phone] Phone Care Team Providers Care Sleeve Wheel Maker Name Role Phone Unavailable Primary Care Provider [...] It is not the complete legal health record.[facility]
--- OUTSIDE RECORDS SUMMARY | 2025-03-02 09:59 | XMS_ITS | Encounter Summary ---
Author Organization [employer] Address [address] [facility] 7t [place] [address] Care Team Providers Care Volunteer Patient Representative Name Role Phone Uma Chung MD Primary Care Provide r Reason for Visit * Reason Onset Date Comments Med Refill 03/15/2023 Encounter Details Date Type Department Care Team ([facility] st Contact Info) Description 03/15/2023 Refill [facility] MEDICINE [address] [place] [address] Uma Chung MD [address] [place] [address] Osteoarthritis involving multiple joints on both sides [...] - 03/15/2023 12:00 PM EDT TC to [facility] pharmacy, spoke with Ema, confirmed that Percocet from 03/13/23 was not dispensed.Requested RX be cancelled. * Telephone Encounter - Meg Castelan - 03/15/2023 11:34 AM EDT Tc from son requesting new script to be send to [facility], son stated [facility] blue [...] documented as of this encounter Care Teams Volunteer Patient Representative Relationship Specialty Start Date End Date Uma Chung MD [address] [place] [address] PCP - General Family Medicine 02/21/18 Altranais 09/15/24 documented as of this encounter
--- OUTSIDE RECORDS SUMMARY | 2025-03-02 09:59 | XMS_ITS | Encounter Summary ---
Author Organization [employer] Address [address] [facility] 7t [place] [address] Care Team Providers Care Collateral Analyst Name Role Phone Uma Chung MD Primary Care Provide r Reason for Visit * Reason Onset Date Comments Appointment Request 10/25/2022 Encounter Details Date Type Department Care Team ([facility] st Contact Info) Description 10/25/2022 Telephone [facility] MEDICINE [address] [place] [address] Uma Chung MD [address] [place] [address] Appointment Request Social History Tobacco Use Types [...] Miscellaneous Notes * Telephone Encounter - Deep Nelsonrero - 10/25/2022 3:54 PM EDT Tc from son requesting to r/s appt for 10/26/2022 of WARRANTY COORDINATOR Please contact pt son at [phone] documented in this encounter Plan of Treatment Not on file documented as of this encounter Visit Diagnoses Not on filedocumented in this encounter Care Teams Collateral Analyst Relationship Specialty Start Date End Date Uma Chung MD [address] [place] [address] PCP - General Family Medicine 02/21/18 Altranais 09/15/24 documented as of this encounter
--- OUTSIDE RECORDS SUMMARY | 2025-03-02 09:59 | XMS_ITS | Encounter Summary ---
Author Organization [employer] Address [address] [facility] [address] [place] [address] Care Team Providers Care Program Paraprofessional Name Role Phone Uma Chung MD Primary Care Provide r Reason for Visit * Reason Onset Date Comments Nurse Triage 01/14/2024 Encounter Details Date Type Department Care Team ([facility] st Contact Info) Description 01/14/2024 Telephone [facility] MEDICINE [address] [place] [address] Uma Chung MD [address] [place] [address] Nurse Triage Social History Tobacco Use Types [...] - 01/14/2024 9:17 AM EDT Contacted patient Bayorn Villarreal Jr. Patient required revisit with Eye [...] documented as of this encounter Care Teams Program Paraprofessional Relationship Specialty Start Date End Date Uma Chung MD [address] [place] [address] PCP - General Family Medicine 9/21/18 Altranais 09/15/24 documented as of this encounter
--- OUTSIDE RECORDS SUMMARY | 2025-03-02 09:59 | XMS_ITS | Encounter Summary ---
Author Organization [employer] Address [address] [facility] 7t [place] [address] Care Team Providers Care State Manager Name Role Phone Uma Chung MD Primary Care Provide r Encounter Details Date Type Department Care Team (Late st Contact Info) Description 02/06/2023 Orders Only [facility] [address] [place] [address] Lay Grimaldo LPN Social History Tobacco Use [...] documented as of this encounter Care Teams State Manager Relationship Specialty Start Date End Date Uma Chung MD [address] [place] [address] PCP - General Family Medicine 02/21/18 Altranais 09/15/24 documented as of this encounter
--- OUTSIDE RECORDS SUMMARY | 2025-03-02 09:59 | XMS_ITS | Encounter Summary ---
Author Organization [employer] Address [address] [facility] [address] [place] [address] Care Team Providers Care Propeller Mechanic Name Role Phone Uma Chung MD Primary Care Provide r Reason for Visit * Reason Comments Med Refill Encounter Details Date Type Department Care Team ([facility] st Contact Info) Description 10/23/2024 Refill [facility] MEDICINE [address] [place], [place] [phone] Uma Chung MD [address] [place], [place] [phone] Hypertension, unspecified type Social History Tobacco Use Types Packs/Day [...] as of this encounter Visit Diagnoses Diagnosis Hypertension, unspecified type documented in this encounter Additional Health Concerns Assessment Noted Time PHQ-9 Depression Total Score: 4 05/06/20 24 9:16 AM EST documented as of this encounter Care Teams Propeller Mechanic Relationship Specialty Start Date End Date Uma Chung MD [address] [place] [address] PCP - General Family Medicine 02/21/18 Salome 09/15/24 documented as of this encounter
--- OUTSIDE RECORDS SUMMARY | 2025-03-02 09:59 | XMS_ITS | Encounter Summary ---
Author Organization [employer] Address [address] [facility] 7[address] [place] [address] Care Team Providers Care Fashion Merchandiser Name Role Phone Uma Chung MD Primary Care Provide r Encounter Details Date Type Department Care Team (Late st Contact Info) Description 07/16/2024 Orders Only [facility] MEDICINE [address] [place], [place] [phone] Uma Chung MD [address] [place] [address] Social History Tobacco Use Types Packs/Day Years [...] documented as of this encounter Care Teams Fashion Merchandiser Relationship Specialty Start Date End Date Uma Chung MD [address] [place] [address] PCP - General Family Medicine 02/21/18 Salome 09/15/24 documented as of this encounter
--- OUTSIDE RECORDS SUMMARY | 2025-03-02 09:59 | XMS_ITS | Encounter Summary ---
Author Organization [employer] Address [address] [facility] 7[address] [place] [address] Care Team Providers Care Cashier Payments Received Name Role Phone Uma Chung MD Primary Care Provide r Reason for Visit * Reason Comments Med Refill Encounter Details Date Type Department Care Team ([facility] st Contact Info) Description 01/02/2024 Refill [facility] MEDICINE [address] [place], [place] [phone] Uma Chung MD [address] [place], [place] [phone] Osteoarthritis involving multiple joints on both sides [...] documented as of this encounter Care Teams Cashier Payments Received Relationship Specialty Start Date End Date Uma Chung MD [address] [place] [address] PCP - General Family Medicine 02/21/18 Altranais 09/15/24 documented as of this encounter
--- OUTSIDE RECORDS SUMMARY | 2025-03-02 10:00 | XMS_ITS | Clinical Summary ---
Author Organization [employer] Address [address] [facility] 7t [place] [address] Care Team Providers Care Rice Farmer Name Role Phone Uma Chung MD Primary Care Provide r Allergies No known active allergies Medications Blood Glucose Monitoring Suppl (FreeStyle [place] Lite) w/Device kit Use to check BS 3x a day 1 kit 04/27/20 24 Active FREESTYLE LITE test strip Use to check BS 3x daily 100 each 12 04/27/20 24 025 Active TRUEplus Lancets 33G misc Use to check BS 3x daily. 100 each 11 04/27/20 24 Active Blood Pressure kitIndications:Es sential hypertension 1 each Once per day. 1 kit 05/06/20 24 Active cromolyn (Opticrom) 4 % ophthalmic solution PLACE 1 DROP IN THE AFFECTED EYE(S) ONCE DAILY NEEED 30 mL 3 06/25/19 25 Active lidocaine (Lidoderm) 5 % patchIndications: Primary osteoarthritis of both knees Apply 2 patches topically Once per day. Remove & discard patch within 12 hours. 60 patch 1 09/16/19 25 Active senna (Senokot) 8.6 MG tabletIndications :Constipation, unspecified constipation type Take 1 tablet (8.6 mg) by mouth at bedtime. 60 tablet 1 09/16/19 25 Active clopidogrel (Plavix) 75 MG tabletIndications :H/O non-ST elevation myocardial infarction (NSTEMI) TAKE 1 TABLET BY MOUTH EVERY DAY 30 tablet 1 01/07/20 25 Active melatonin 5 MG tabletIndications :Insomnia, unspecified type TAKE 2 TABLETS BY MOUTH EVERY DAY AT BEDTIME 60 tablet 1 01/07/20 25 Active metoprolol tartrate (Lopressor) 25 MG tabletIndications :Essential hypertension TAKE 1/2 TABLET BY MOUTH TWICE DAILY 30 tablet 1 01/07/20 25 Active tamsulosin (Flomax) 0.4 MG 24 hr capsuleIndication s:Horseshoe kidney TAKE 2 CAPSULES BY MOUTH EVERY DAY 60 capsule 1 01/07/20 25 Active Tradjenta 5 MG tabletIndications :Type 2 diabetes mellitus without complication, without long-term current use of insulin (HCC) TAKE 1 TABLET BY MOUTH EVERY DAY 30 tablet 01/07/20 25 Active pantoprazole (ProtoNix) 40 MG EC tabletIndications :Gastroesophageal reflux disease without esophagitis TAKE 1 TABLET BY MOUTH EVERY DAY BEFORE BREAKFAST. DO NOT BREAK, CRUSH, DISSOLVE OR CHEW. 30 tablet 1 01/07/20 25 Active Aspirin Low Dose 81 MG chewable tabletIndications :H/O non-ST elevation myocardial infarction (NSTEMI) CHEW AND SWALLOW 1 TABLET BY MOUTH EVERY DAY 30 tablet 01/07/20 25 Active thiamine (Vitamin B-1) 100 MG tabletIndications :H/O non-ST elevation myocardial infarction (NSTEMI) TAKE 1 TABLET BY MOUTH EVERY DAY 30 tablet 01/07/20 25 Active atorvastatin (Lipitor) 80 MG tabletIndications :Hyperlipidemia, unspecified hyperlipidemia type TAKE 1 TABLET BY MOUTH EVERY DAY 30 tablet 01/07/20 25 Active polyethylene glycol, PEG, 3350 (Glycolax) 17 GM/SCOOP powderIndications :Constipation, unspecified constipation type TAKE 17 GM MIXED IN 8 OUNCES OF WATER ONCE DAILY 510 g 01/07/20 25 Active oxyCODONE-acetami nophen (Percocet) 5-325 MG tabletIndications :Osteoarthritis involving multiple joints on both sides of body TAKE 1 TABLET BY MOUTH EVERY 6 HOURS NEEDED FOR SEVERE PAIN FOR UP TO 28 DAYS 112 tablet 02/12/20 25 Active oxyCODONE-acetami nophen (Percocet) 5-325 MG tabletIndications :Osteoarthritis involving multiple joints on both sides of body TAKE 1 TABLET BY MOUTH EVERY 6 HOURS NEEDED FOR SEVERE PAIN FOR UP TO 28 DAYS 112 tablet 01/13/20 25 025 Discontinued Active Problems Problem Noted Date Diagnosed Date Long-term current use of opiate analgesic 2024 Discomfort of right eye 02/18/2024 Assessment & Plan (02/18/2024 8:06 PM EDT): No erythema in bl conjunctivas, pulps bl mild reactive to light , no eye tenderness w palpation ,no purulent discharge seen -Seen by bituminous paving machine operator in 11/07/2023 dxed w Mild nonproliferative diabetic [...] current medications Stage 4 chronic kidney disease (CMS/HCC) 023 Osteoarthritis of both knees 10/30/2022 Assessment & [...] Encounters Date Type Department Care Team Description 03/02/2025 Telephone [facility] MEDICINE [address] [place] [address] Uma Chung MD Referral 03/02/2025 Refill [facility] CHC MED & PEDS [address] [place], [place] [phone] Uma Chung MD Heartburn 02/26/2025 Telephone [facility] MEDICINE [address] [place] [address] Emi Harrell RN Pt cancelled FERTILIZER APPLICATOR RV at check in today 02/10/2025 Refill [facility] MEDICINE [address] [place] [address] Uma Chung MD Osteoarthritis involving multiple joints on both sides of body 01/20/2025 Telephone [facility] MEDICINE [address] [place] [address] Uma Chung MD Referral 01/18/2025 Refill [facility] MEDICINE [address] [place], [place] [phone] Uma Chung MD 01/12/2025 Refill [facility] MEDICINE [address] [place] [address] Uma Chung MD Osteoarthritis involving multiple joints on both sides of body 01/06/2025 Refill [facility] MEDICINE [address] [place] [address] Uma Chung MD H/O non-ST elevation myocardial infarction (NSTEMI); Insomnia, unspecified type; Essential hypertension; Horseshoe kidney; Type 2 diabetes mellitus without complication, without long-term current use of insulin ([facility]); Gastroesophageal reflux disease without esophagitis; Hyperlipidemia, unspecified hyperlipidemia type; Constipation, unspecified constipation type 12/25/2024 10:30 AM EDT Telemedicine [facility] MEDICINE [address] [place] [address] Emi Harrell RN Long-term current use of opiate analgesic 12/25/2024 Telephone [facility] MEDICINE [address] [place] [address] Emi Harrell, LAINA BPI Scoring 12/25/2024 Travel 12/17/2024 Orders Only [facility] MEDICINE [address] [facility] [place] [address] Uma Chung MD 12/11/2024 Refill [facility] MEDICINE [address] [facility] [place] [address] Floridalma Bentley RN Osteoarthritis involving multiple joints on both sides of body 11/30/2024 Refill [facility] MEDICINE [address] [facility] [place] [address] Uma Chung MD Gastroesophageal reflux disease, unspecified whether esophagitis present; Hypertension, unspecified type from Last 3 Months Immunizations Immunization Administration Dates Next Due Influenza High-dose Quadrivalent [...] the past 12 months, has t he [employer], gas, oil or water company threatened to [...] 60 06/08/2024 1:12 PM EST Temperature 36.1 C (97 F) 06/08/2024 1:12 PM EST Respiratory Rate 20 06/08/2024 1:12 PM EST Oxygen Saturation 99% 04/29/2024 11:11 AM EST Inhaled Oxygen Concentration - - Weight 94 kg (207 lb 2 oz) 06/08/2024 1:12 PM ES T Height 198.1 cm (6' 6 ) 06/08/2024 1:12 PM EST Body Mass Index 23.94 06/08/2024 1:12 PM EST Plan of Treatment Health Maintenance Due Date Last Done Comments Dental Prophylaxis 1948 Dental X-Ray: Bitewings 1948 Diabetes: Foot Exam 1958 Alcohol/Substance Use Screening 1960 Hepatitis C Screening 1966 DTaP/Tdap/Td Vaccines (1 - Tdap) 1967 Zoster Vaccines (2 of 3) 01/11/2017 11/16/2016 Diabetes: Urine Protein Screening 11/09/2021 11/09/2020, 10/15/2019 Lipid Panel 2022 2021, 11/09/2020 Dental Oral Exam 03/29/2023 09/26/2022 RSV Patients and Patients Aged 60 years or older (1 - 1-dose 75+ series) 2023 Diabetes: Hemoglobin A1C 08/04/2024 024, 07/10/2023, 07/05/2023, Additional history exists Eye Exam 11/06/2024 11/07/2023, 06/0 11/2023, 11/07/2023, Additional history exists COVID-19 Vaccine ( season) 2025 05/06/2024, 09/07/2020 Influenza Vaccine (#1) 2025 , 03/29/2020, 02/24/2018 Depression Screening 05/06/2025 05/06/2024, 05/06/20 24 SDOH Screening 06/02/2025 06/02/2024 Tobacco Screening 06/08/2025 06/08/2024 Dental X-Ray: Full Mouth 09/27/2025 09/26/2022 Colonoscopy Discontinued 08/07/2011 Colorectal Cancer Screening Discontinued Pneumococcal Vaccine: 50+ Years Completed 07/05/2023 CT Colonography Discontinued FIT DNA/Cologuard Discontinued FIT [...] patient's age to complete this topic Meningococcal B Vaccine Aged Out No l onger eligible based on patient's age to complete [...] Name Priority Date/Time Associated Diagnosis Comments POCT GLYCATED HEMOGLOBIN, TOTAL Routine 05/06/2024 9:20 AM EST Type 2 diabetes mellitus without complication, without long-term current use of insulin ([facility]) PANORAMIC RADIOGRAPHIC IMAGE Routine 09/26/2022 11:30 AM EDT PERIODIC ORAL EVALUATION - ESTABLISHED PATIENT Routine 09/26/2022 11:30 AM EDT ZZZ HISTORICAL LIPID PANEL Routine 2021 8:18 AM EST ALBUMIN, RANDOM URINE W/CREATININE Routine 11/09/2020 8:29 AM EDT HM COLONOSCOPY Routine 08/07/2011 from Last 3 Months or Most Recently Relevant to Health Maintenance Results * (ABNORMAL) POCT HGB A1C (05/06/2024 9:20 AM EST) Hemoglobin A1C 7.3(A) 4.0 - 6.0 % QC Media Lot # [id number] Lot# Expiration Date ,025 Blood 05/06/2024 9:20 AM EST Uma Friedman MD POINT OF CARE TEST EN TER/EDIT ORDERABLES Final Result * (ABNORMAL) LIPID PANEL (2021 8:18 AM EST) Cholesterol 155 mg/dL [facility] Comment: Desirable Cholesterol: less than 200 mg/dL Borderline High Cholesterol: 200-239 mg/dL High Cholesterol: greater than 239 mg/dL HDL Cholesterol 31 mg/dL [facility] Comment: Desirable HDL: greater than 40 mg/dL Note: This HDL assay may give artificially low results in patients with liver disease. LDL Cholesterol Calculated 80 mg/dl [facility] Comment: Desirable LDL: less than 100 mg/dL Near Optimal/Above Optimal LDL: 110-129 mg/dL Borderline High LDL: 130-159 mg/dL High LDL: 160-189 mg/dL Very High LDL: greater than or equal to 190 mg/dL Triglycerides 224 mg/dL [facility] Comment: Desirable Triglyceride: less than 150 mg/dL Borderline High Triglyceride 150-199 mg/dL High Triglyceride: 200-499 mg/dL Very High Triglyceride: greater than or equal to 5OO mg/dL Alanine Aminotransferase 28 0 - 40 U/L [facility] Albumin Level 4.0 3.5 - 5.0 g/dL [facility] Alkaline Phosphatase 105 39 - 117 U/L [facility] Aspartate Amino Transferase 27 5 - 37 U/L [facility] Bilirubin Direct 0.3 0.0 - 0.5 mg/dL [facility] Bilirubin Total 0.6 0.0 - 1.0 mg/dL [facility] Total Protein 8.1(H) 6.5 - 8.0 g/dL [facility] Vitamin D 25-OH Total 24.0 >30 ng/mL [facility] Comment: Health Based Reference Values* < 20 ng/mL Deficient 20-30 ng/mL Insufficient > 30 ng/mL Sufficient *Cassie GREENBERG. N Engl J Med. 2007;357:266-280 Care must be taken in interpreting Vitamin D results from different laboratories and methodologies. Published data demonstrated that results from patients undergoing hemodialysis may show a negative bias when tested with various automated 25-OH vitamin D assays when compared to LC-MS/MS. When testing samples from patients whose predominant [...] Rate 34 [facility] Comment: NOTE: For -Scottish individuals, multiply the result by 1.210. Chronic Kidney Disease: Estimated GFR < 60 mL/min/1.73m2 Severe Kidney Disease: Estimated GFR < 15 mL/min/1.73m2 Glucose Random 168(H) 60 - 115 mg/dL [facility] Potassium 5.1 3.3 - 5.1 mmol/L [facility] Sodium 140 135 - 145 mmol/L [facility] TSH reflex Free T4 1.51 0.32 - 4.0 uIU/mL [facility] 2021 8:18 AM EST Uma Friedman MD HISTORICAL/NON ORDERA BLE LABS Final Result Performing Organization Address [facility] de Phone Number [facility] [address] [place] [address], * (ABNORMAL) ALBUMIN, RANDOM URINE W/CREATININE (11/09/2020 8:29 AM EDT) Microalbumin Urine 16.4 See Note: mg/dL [facility] Comment: Reference Range: Reference Range Not established Microalb/Creat Ratio 141(H) <30 mcg/mg creat [facility] Comment: The ADA defines abnormalities in albumin excretion as follows: Category Result (mcg/mg creatinine) Normal <30 Microalbuminuria 30-299 Clinical albuminuria > OR = 300 The ADA recommends that at least two of three specimens collected within a 3-6 month period be abnormal before considering a patient to be within a diagnostic category. Creatinine, Urine 116 20 - 320 mg/dL [facility] 11/09/2020 8:29 AM EDT Uma Friedman MD LAB URINE ORDERABLES Final Result Performing Organization Address [facility] de Phone Number [facility] [address] [place] [address], * Hm Colonoscopy (08/07/2011) Historical Provider HEALTH MAINTENANCE Final Result from Last 3 Months or Most Recently Relevant to Health Maintenance Insurance [facility] RESIDENTIAL OPTIONS (HMO D-SNP) [facility] STANDARD D[facility] - [facility] Care Teams Rice Farmer Relationship Specialty Start Date End Date Uma Chung MD [address] [place] [id number] PCP - General Family Medicine 02/21/18 Altranais 09/15/24
--- OUTSIDE RECORDS SUMMARY | 2025-03-02 10:00 | XMS_ITS | Encounter Summary ---
Author Organization [employer] Address [address] 7[address] [place] [address] Care Team Providers Care Gas Main Fitter Helper Name Role Phone Uma Chung MD Primary Care Provide r Encounter Details Date Type Department Care Team (Late st Contact Info) Description 05/14/2023 Orders Only [facility] CHC MED & PEDS [address] [place] [address] Chelly Holloway LPN Social History Tobacco Use [...] documented as of this encounter Care Teams Gas Main Fitter Helper Relationship Specialty Start Date End Date Uma Chung MD [address] [place] [address] PCP - General Family Medicine 02/21/18 Altranais 09/15/24 documented as of this encounter
--- OUTSIDE RECORDS SUMMARY | 2025-03-02 10:00 | XMS_ITS | Encounter Summary ---
Author Organization [employer] Address [address] [facility] 7t [place] [address] Care Team Providers Care Sap Bods Developer Name Role Phone Uma Chung MD Primary Care Provide r Reason for Visit * Reason Onset Date Comments Referral 03/02/2025 Encounter Details Date Type Department Care Team ([facility] st Contact Info) Description 03/02/2025 Telephone [facility] MEDICINE [address] [place] [address] Uma Chung MD [address] [place] [address] Referral Social History Tobacco Use Types Packs/Day Years [...] encounter Miscellaneous Notes * Telephone Encounter - Floridalma Bentley RN - 03/02/2025 9:00 AM EDT Pt. Last seen by [facility] October 2024, [place] location now closed. Son is requesting referral to [facility] cardiology. Diagnoses: MT, CHF, hypertension, CAD, cardiomyopathy * Telephone Encounter - Anshul Brumfield - 03/02/2025 8:19 AM EDT Tc from pt son requesting a referral to a draftsperson Myles Augustine at [facility] Contact pt son at [phone] documented in this encounter Plan of Treatment Not on file documented as of this encounter Visit Diagnoses Not on filedocumented in this encounter Additional Health Concerns Assessment Noted Time PHQ-9 Depression Total Score: 4 05/06/20 24 9:16 AM EST documented as of this encounter Care Teams Sap Bods Developer Relationship Specialty Start Date End Date Uma Chung MD [address] [place] [id number] PCP - General Family Medicine 02/21/18 Altranais 09/15/24 documented as of this encounter
--- OUTSIDE RECORDS SUMMARY | 2025-03-02 10:00 | XMS_ITS | Encounter Summary ---
Author Organization [employer] Address [address] [facility] 7t [place] [address] Care Team Providers Care Trackless Trolley Driver Name Role Phone Uma Chung MD Primary Care Provide r Reason for Visit * Reason Comments Med Refill Encounter Details Date Type Department Care Team ([facility] st Contact Info) Description 07/22/2024 Refill [facility] MEDICINE [address] [place], [place] [phone] Uma Chung MD [address] [place], [place] [phone] Erectile dysfunction, unspecified erectile dysfunction type Social [...] documented as of this encounter Care Teams Trackless Trolley Driver Relationship Specialty Start Date End Date Uma Chung MD [address] [place] [id number] PCP - General Family Medicine 02/21/18 Salome 09/15/24 documented as of this encounter
--- OUTSIDE RECORDS SUMMARY | 2025-03-02 10:00 | XMS_ITS | Encounter Summary ---
Author Organization [employer] Address [address] [facility] 7t [place] [address] Care Team Providers Care Dye Worker Name Role Phone Uma Chung MD Primary Care Provide r Reason for Visit * Reason Comments Med Refill Encounter Details Date Type Department Care Team ([facility] st Contact Info) Description 11/30/[address] [facility] MEDICINE [address] [place], [place] [phone] Uma Chung MD [address] [place] [address] Gastroesophageal reflux disease, unspecified whether esophagitis present; Hypertension, unspecified type Social History Tobacco Use [...] as of this encounter Visit Diagnoses Diagnosis Gastroesophageal reflux disease, unspecified whether esophagitis present Hypertension, unspecified type documented in this encounter Additional Health Concerns Assessment Noted Time PHQ-9 Depression Total Score: 4 05/06/20 24 9:16 AM EST documented as of this encounter Care Teams Dye Worker Relationship Specialty Start Date End Date Uma Chung MD [address] [place] [address] PCP - General Family Medicine 02/21/18 Altranais 09/15/24 documented as of this encounter
--- OUTSIDE RECORDS SUMMARY | 2025-03-02 10:00 | XMS_ITS | Encounter Summary ---
Author Organization [employer] Address [address] [facility] 7t [place] [address] Care Team Providers Care Fill Manager Name Role Phone Uma Chung MD Primary Care Provide r Encounter Details Date Type Department Care Team (Late st Contact Info) Description 12/17/2024 Orders Only [facility] MEDICINE [address] [place], [place] [phone] Uma Chung MD [address] [place], [place] [phone] Social History Tobacco Use Types Packs/Day Years [...] documented as of this encounter Care Teams Fill Manager Relationship Specialty Start Date End Date Uma Chung MD [address] [place] [address] PCP - General Family Medicine 02/21/18 Salome 09/15/24 documented as of this encounter
--- OUTSIDE RECORDS SUMMARY | 2025-03-02 10:00 | XMS_ITS | Encounter Summary ---
Author Organization [employer] Address [address] [facility] 7t [place] [address] Care Team Providers Care Web Architect Name Role Phone Uma Chung MD Primary Care Provide r Reason for Visit * Reason Comments Med Refill Encounter Details Date Type Department Care Team ([facility] st Contact Info) Description 03/02/2025 Refill [facility] CHC MED & PEDS [address] [place] [address] Uma Chung MD [address] [place] [address] Heartburn Social History Tobacco Use Types Packs/Day Years [...] as of this encounter Visit Diagnoses Diagnosis Heartburn documented in this encounter Additional Health Concerns Assessment Noted Time PHQ-9 Depression Total Score: 4 05/06/20 24 9:16 AM EST documented as of this encounter Care Teams Web Architect Relationship Specialty Start Date End Date Uma Chung MD [address] [place] [id number] PCP - General Family Medicine 02/21/18 Ingeranzenobias 09/15/24 documented as of this encounter
--- OUTSIDE RECORDS SUMMARY | 2025-03-02 10:00 | XMS_ITS | Encounter Summary ---
Author Organization [employer] Address [address] [facility] 7t [place] [address] Care Team Providers Care Admissions Manager Rn Name Role Phone Uma Chung MD Primary Care Provide r Encounter Details Date Type Department Care Team ([facility] st Contact Info) Description 07/12/2023 Telephone [facility] MEDICINE [address] [place] [address] Uma Chung MD [address] [place] [address] Social History Tobacco Use Types Packs/Day Years [...] documented as of this encounter Care Teams Admissions Manager Rn Relationship Specialty Start Date End Date Uma Chung MD [address] [place] [address] PCP - General Family Medicine 02/21/18 Ingeranzenobias 09/15/24 documented as of this encounter
--- OUTSIDE RECORDS SUMMARY | 2025-03-02 10:00 | XMS_ITS | Encounter Summary ---
Author Organization [employer] Address [address] [facility] 7t [place] [address] Care Team Providers Care Oracle Identity Management Consultant Name Role Phone Uma Chung MD Primary Care Provide r Reason for Visit * Reason Onset Date Comments Referral 01/20/2025 Encounter Details Date Type Department Care Team ([facility] st Contact Info) Description 01/20/2025 Telephone [facility] MEDICINE [address] [place] [address] Uma Chung MD [address] [place] [address] Referral Social History Tobacco Use Types Packs/Day [...] Telephone Encounter - Floridalma Bentley RN - 01/20/2025 9:35 AM EDT Noted referral to [facility] from 05/06/24, last communication states Referral faxed with attachment group underwriter will follow up with referral status Please advise on status of referral, and if son can call to schedule appt. Thank you!!! * Telephone Encounter - Anshul Brumfield - 01/20/2025 9:05 AM EDT Tc from pt son requesting for a referral to a associate engineer for pt Contact pt at [phone] documented in this encounter Plan of Treatment Not on file documented as of this encounter Visit Diagnoses Not on filedocumented in this encounter Additional Health Concerns Assessment Noted Time PHQ-9 Depression Total Score: 4 05/06/20 9:16 AM EST documented as of this encounter Care Teams Oracle Identity Management Consultant Relationship Specialty Start Date End Date Uma Chung MD [address] [place] [phone] PCP - General Family Medicine 02/21/18 Altranais 09/15/24 documented as of this encounter
--- OUTSIDE RECORDS SUMMARY | 2025-03-02 10:00 | XMS_ITS | Encounter Summary ---
Author Organization [employer] Address [address] [facility] 7t [place] [address] Care Team Providers Care Handkerchief Folder Name Role Phone Uma Chung MD Primary Care Provide r Reason for Visit * Reason Onset Date Comments Pt cancelled STREET LIGHT SERVICER RV at check in today 02/26/2025 Encounter Details Date Type Department Care Team (Late st Contact Info) Description 02/26/[address] [facility] MEDICINE [address] [place] [address] Emi Harrell RN Pt cancelled STREET LIGHT SERVICER RV at check in today Social History Tobacco Use Types Packs/Day Years [...] Telephone Encounter - Emi Harrell RN - 02/26/2025 9:59 AM EDT desktop support associate called to check patient in for his Tele STREET LIGHT SERVICER RV appointment today. Pt cancelled his appointment at that time stating he was at the pharmacy and will call to reschedule the appointment. documented in this encounter Plan of Treatment Not on file documented as of this encounter Visit Diagnoses Not on filedocumented in this encounter Additional Health Concerns Assessment Noted Time PHQ-9 Depression Total Score: 4 05/06/20 24 9:16 AM EST documented as of this encounter Care Teams Handkerchief Folder Relationship Specialty Start Date End Date Uma Chung MD [address] [place] [id number] PCP - General Family Medicine 02/21/18 Altranais 09/15/24 documented as of this encounter
--- OUTSIDE RECORDS SUMMARY | 2025-03-02 10:00 | XMS_ITS | Encounter Summary ---
Author Organization [employer] Address [address] [facility] 7t [place] [address] Care Team Providers Care Cia Agent Name Role Phone Uma Chung MD Primary Care Provide r Encounter Details Date Type Department Care Team ([facility] st Contact Info) Description 10/16/2023 Telephone [facility] MEDICINE [address] [place] [address] Uma Chung MD [address] [place] [address] Social History Tobacco Use Types Packs/Day Years [...] documented as of this encounter Care Teams Cia Agent Relationship Specialty Start Date End Date Uma Chung MD [address] [place] [address] PCP - General Family Medicine 02/21/18 Ingeranzenobias 09/15/24 documented as of this encounter
--- OUTSIDE RECORDS SUMMARY | 2025-03-02 10:00 | XMS_ITS | Encounter Summary ---
Author Organization [employer] Address [address] [facility] 7t [place] [address] Care Team Providers Care Creamery Worker Name Role Phone Uma Chung MD Primary Care Provide r Reason for Visit * Reason Comments Med Refill Encounter Details Date Type Department Care Team ([facility] st Contact Info) Description 07/17/2023 Refill [facility] MEDICINE [address] [place], [place] [phone] Uma Chung MD [address] [place] [address] Osteoarthritis involving multiple joints on both sides [...] documented as of this encounter Care Teams Creamery Worker Relationship Specialty Start Date End Date Uma Chung MD [address] [place] [address] PCP - General Family Medicine 02/21/18 Altranais 09/15/24 documented as of this encounter
--- OUTSIDE RECORDS SUMMARY | 2025-03-02 10:00 | XMS_ITS | Encounter Summary ---
Author Organization [employer] Address [address] [facility] 7t [place] [address] Care Team Providers Care Ski Guide Name Role Phone Uma Chung MD Primary Care Provide r Reason for Visit * Reason Comments Med Refill Encounter Details Date Type Department Care Team ([facility] st Contact Info) Description 01/18/2025 Refill [facility] MEDICINE [address] [place] [address] Uma Chung MD [address] [place] [address] Social History Tobacco Use Types Packs/Day Years [...] documented as of this encounter Care Teams Ski Guide Relationship Specialty Start Date End Date Uma Chung MD [address] [place] [address] PCP - General Family Medicine 02/21/18 Ingeranzenobias 09/15/24 documented as of this encounter
--- OUTSIDE RECORDS SUMMARY | 2025-03-02 10:00 | XMS_ITS | Clinical Summary ---
Author Organization [facility] Address [address] [place] [address] Care Team Providers Care Relief Pilot Name Role Phone Uma Chung MD Primary [...] Years Used Date Smoking Tobacco: Never Assessed [facility] Utilities Answer Date Recorded In the past 12 months has e [employer], [employer], oil, or water evidanza threatened to shut off services in your [...] any time in the past 12 m [facility], were you homeless or living in a retirement (including now)? No 08/06/2024 Sex and Gender [...] Patients (1 - 1-dose 75+ series) 2023 Influenza Vaccine 01/01/2025 05/06/2024, , 02/24/2018 COVID-19 Vaccine (2 - season) 2025 05/06/2024 Hemoglobin A1C 02/06/2025 08/06/2024, 08/05/2024 Lipid Panel 08/06/2025 08/06/2024 Creatinine with GFR 09/02/2025 09/02/2024, 09/01/2024, 08/31/2024, Additional history exists Advance Care Planning Completed 08/18/2024 Hepatitis B Vaccines Aged Out No long er eligible based on patient's age to complete this topic Medical Devices Implanted Type Area Industrial Coffee Grinder Device Identifier Shelf Expiration Date Model / Serial / Lot [id number] Atriclip Flex Device, 35mm Clip - [id number] Implanted:Qty: 1 on 08/13/2024 by Celena Chang MD at [facility] Clip N/A: [employer] 06/03/2027 [id number] / / [id number] Procedures Procedure Name Priority Date/Time Associated Diagnosis [...] 65 - 99 mg/dL 09/02/2024 7:06 AM [facility] Comment:Fasting: <100 mg/dL, Non-Fasting: <200 mg/dL (ADA 2005) Blood Urea Nitrogen (BUN) 50(H) 8 - 21 mg/dL 09/02/2024 7:06 AM [facility] Creatinine 3.0(H) 0.5 - 1.3 mg/dL 09/02/2024 7:06 AM [facility] eGFR 21(L) >59 09/02/2024 7:06 AM [facility] Comment:CKD-EPI (2020) in mL /min/1.73 sq meters. Sodium 138 136 - 145 mmol/L 09/02/2024 7:06 AM [facility] Potassium 4.9 3.4 - 5.3 mmol/L 09/02/2024 7:06 AM [facility] Chloride 108(H) 98 - 107 mmol/L 09/02/2024 7:06 AM [facility] CO2 21(L) 22 - 33 mmol/L 09/02/2024 7:06 AM [facility] Anion Gap 9 7 - 17 09/02/2024 7:06 AM [facility] Calcium 8.6(L) 8.7 - 10.5 mg/dL 09/02/2024 7:06 AM [facility] BUN/Creatinine Ratio 17 10.0 - 25.0 Ratio 09/02/2024 7:06 AM [facility] Blood Blood specimen / Unknown 09/02/2024 5:13 AM EDT 09/02/2024 6:23 AM EDT Coleman [facility] LAB BLOOD ORDERABLES Final Result [address] [address], [address] [address] * (ABNORMAL) Hemoglobin A1c with Estimated Average Glucose (08/06/2024 6:41 AM EST) Hemoglobin A1C 6.7(H) <5.7 % 08/06/2024 12:44 PM EST [facility] Comment: A1c% Interpretation 5.7 - 6.0 Increase risk of diabetes 6.1 - 6.4 Higher risk of diabetes > or = 6.5 Consistent with diabetes Diabetes Care, 33(Supp 1):S1-S61, 2010 Estimated Average Glucose 146 mg/dL 08/06/2024 12:44 PM [facility] Blood Blood specimen / Unknown 08/06/2024 6:41 AM EST 08/06/2024 7:37 AM EST Jessica Valentin INTERNATIONAL LOGISTICS MANAGER LAB BLOOD ORDERABLES Final Res ult Performing Organization Address City/[facility]/ZIP Co de Phone Number [address] [address], [address] [address] * LIPID PANEL (08/06/2024 6:41 AM EST) Cholesterol, Total 106 <200 mg/dL 2024 8:26 AM [facility] Triglycerides 61 <150 mg/dL 08/06/2024 8:26 AM [facility] Cholesterol, HDL 53 >39 mg/dL 08/07/19 8:26 AM [facility] Estimated LDL 41 <130 mg/dL 08/06/2024 8:26 AM [facility] Comment: NCEP Guidelines: < 100 mg/dL Optimal 100 - 129 mg/dL Near Optimal/Above Optimal 130 - 159 mg/dL Borderline High 160 - 189 mg/dL High >/= 190 mg/dL Very High Cholesterol/HDL Ratio 2.0 0.0 - 5.0 Ratio 08/06/2024 8:26 AM [facility] Comment: Relative Risk Ratio - Male Ratio - Female 0.5 3.4 3.3 1.0 5.0 4.4 2.0 9.6 7.1 3.0 23.4 11.0 08/06/2024 6:41 AM EST 08/06/2024 7:37 AM EST Jessicamali Valentin INTERNATIONAL LOGISTICS MANAGER LAB BLOOD ORDERABLES Final Res ult [address] [place] [address], [address] [address] from Last 3 Months or Most Recently Relevant to Health Maintenance Insurance [facility] MEDICARE OUT OF NETWORK Member Subscriber Plan / Payer (Ef fective 2024-Present) Name:DelioPhil A Relation to Subscriber:Self Name:DelioStephanRohit Payer ID:Not on file Group ID:Not on file Type:Not on file Address: [address] MEDICARE PART A & B [facility] MEDICARE OUT OF NETWORK [facility] Advance Directives Documents on File Type Date Recorded Patient Unit Manager [employer] Expl anation Advance Directive-Scan 08/18/2024 [facility] PROXY 08/18/2024 * Full Code (Latest Code Status on File) Date Activated Date Inactivated Comments 08/13/2024 3:17 PM * Full Code Date Activated Date Inactivated Comments 08/05/2024 9:41 PM 08/13/2024 3:17 PM Healthcare Agents on File Name Relationship Healthcare Agent Relationship Communication Phil [facility] in store marketing representative 1. [facility] Care Unit Manager [employer] Care Teams Relief Pilot Relationship Specialty Start Date End Date Uma Chung MD [address] [place] [address] PCP - General Internal Medicine 08/06/24
--- OUTSIDE RECORDS SUMMARY | 2025-03-02 10:00 | XMS_ITS | Encounter Summary ---
Author Organization [employer] Address 75 [facility] 7t [place] [address] Care Team Providers Care Vending Machine Attendant Name Role Phone Uma Chung MD Primary Care Provide r Reason for Visit * Reason Onset Date Comments Med Refill 11/12/2024 Encounter Details Date Type Department Care Team ([facility] st Contact Info) Description 11/12/2024 Telephone [facility] [address] [place], [place] [phone] Uma Chung MD [address] [place] [address] Med Refill Social History Tobacco Use Types [...] housing situation today? I have collinen morel 06/02/[address] you [...] encounter Miscellaneous Notes * Telephone Encounter - Lay Grimaldo LPN - 11/12/2024 9:41 AM EDT Medication pended to PCP. * Telephone Encounter - Angela Gao - 11/12/2024 9:21 AM EDT TC from pt requesting medication refill. Medications needing refill : - aspirin 81 MG chewable tablet - atorvastatin (Lipitor) 80 MG tablet - clopidogrel (Plavix) 75 MG tablet - linaGLIPtin (Tradjenta) 5 MG tablet - melatonin 10 MG tablet - metoprolol tartrate (Lopressor) 25 MG tablet - pantoprazole (Protonix) 40 MG EC tablet - polyethylene glycol, PEG, 3350 (MiraLax) 17 GM/SCOOP powder - tamsulosin (Flomax) 0.4 MG 24 hr capsule To be sent to: [facility] [place] - [address] [facility] documented in this encounter Plan of Treatment Not on file documented as of this encounter Visit Diagnoses Not on filedocumented in this encounter Additional Health Concerns Assessment Noted Time PHQ-9 Depression Total Score: 4 05/06/20 24 9:16 AM EST documented as of this encounter Care Teams Vending Machine Attendant Relationship Specialty Start Date End Date Uma Chung MD [address] [place] [address] PCP - General Family Medicine 02/21/18 Altranais 09/15/24 documented as of this encounter
--- OUTSIDE RECORDS SUMMARY | 2025-03-02 10:00 | XMS_ITS | Encounter Summary ---
Author Organization [employer] Address 75 [facility] 7t [place] [address] Care Team Providers Care Brim Plater Name Role Phone Uma Chung MD Primary Care Provide r Reason for Visit * Reason Onset Date Comments Med Refill 06/15/2024 Encounter Details Date Type Department Care Team ([facility] st Contact Info) Description 06/15/2024 Telephone [facility] MEDICINE [address] [place] [address] Uma Chung MD [address] [place] [address] Med Refill Social History Tobacco Use Types [...] 100 MG tablet To be sent to: [facility] documented in this encounter Plan of Treatment Not on file documented as of this encounter Visit Diagnoses Not on filedocumented in this encounter Additional Health Concerns Assessment Noted Time PHQ-9 Depression Total Score: 4 05/06/20 24 9:16 AM EST documented as of this encounter Care Teams Brim Plater Relationship Specialty Start Date End Date Uma Chung MD [address] [place] [address] PCP - General Family Medicine 02/21/18 Altranais 09/15/24 documented as of this encounter
--- OUTSIDE RECORDS SUMMARY | 2025-03-02 10:00 | XMS_ITS | Encounter Summary ---
Author Organization [employer] Address [address] [facility] 7t [place] [address] Care Team Providers Care Filter Tank Tender Helper Head Name Role Phone Uma Chung MD Primary Care Provide r Reason for Visit * Reason Comments Med Refill Encounter Details Date Type Department Care Team ([facility] st Contact Info) Description 05/07/2023 Refill [facility] MEDICINE [address] [place], [place] [phone] Uma Chung MD [address] [place] [address] Osteoarthritis involving multiple joints on both sides [...] documented as of this encounter Care Teams Filter Tank Tender Helper Head Relationship Specialty Start Date End Date Uma Chung MD [address] [place] [address] PCP - General Family Medicine 02/21/18 Altranais 09/15/24 documented as of this encounter
== END 2025-03-02 09:44 | disposition home or self-care (01) ==
LOC: HO.HKA 09:15
PROVIDERS: PCP Internal Medicine; Visit Provider Internal Medicine Hypertension Specialist
DX: N18.9 Chronic kidney disease, unspecified (principal); D64.9 Anemia, unspecified; E11.9 Type 2 diabetes mellitus without complications
CPT/HCPCS: 99214

== ENCOUNTER → 2025-03-02 09:14 | Outpatient (BNVA) | payer OTHER, SELFPAY | PROVIDERS: PCP Internal Medicine; Visit Provider Internal Medicine Hypertension Specialist | DX: I10 Essential (primary) hypertension (principal); D64.9 Anemia, unspecified; E11.9 Type 2 diabetes mellitus without complications; N18.9 Chronic kidney disease, unspecified | CPT/HCPCS: 99212 ==

== ENCOUNTER 2025-04-10 08:28 | Outpatient (REF) | payer OTHER, SELFPAY ==
--- OUTSIDE RECORDS SUMMARY | 2025-04-10 08:30 | XMS_ITS | Clinical Summary ---
Author Organization [facility] Address [address] [facility] [address] [place] [address] Phone Care Team Providers Care Shipping And Receiving Assistant Name Role Phone Unavailable Primary Care Provider [...] It is not the complete legal health record.[facility]
--- OUTSIDE RECORDS SUMMARY | 2025-04-10 08:30 | XMS_ITS | Clinical Summary ---
Author Organization [facility] Address [address] [facility] [address] [facility] [address] [place] [address] Phone Care Team Providers Care Quality Assurance Consultant Name Role Phone Uma Chung MD [...] DOS VECES AL D A EN LA SC RAVI Y EN LA NOCHE 1 Active [...] % PVNMA 03/29/2020 us [facility]version LAB [id number] LICITED RESULTS Final Result PVNMA from Last 3 Months or Most Recently Relevant to Health Maintenance Insurance [facility] [place] [id number] [place] Care Teams Quality Assurance Consultant Relationship Specialty Start Date End Date Uma Chung MD [address] [place] [phone] PCP - General 06/13/20
--- OUTSIDE RECORDS SUMMARY | 2025-04-10 08:31 | XMS_ITS | Encounter Summary ---
Author Organization [employer] Address [address] [facility] 7t [place] [address] Care Team Providers Care Florist Name Role Phone Uma Chung MD Primary Care Provide r Encounter Details Date Type Department Care Team (Late st Contact Info) Description 12/17/2024 Orders Only [facility] MEDICINE [address] [place], [place] [phone] Uma Chung MD [address] [place] [address] Social History Tobacco Use Types Packs/Day Years [...] Care Team (Late st Contact Info) Description 06/25/2025 10:00 AM EST Telemedicine [facility] MEDICINE [address] [place] [address] Emi Harrell RN documented as of this encounter Visit Diagnoses Not on filedocumented in this encounter Additional Health Concerns Assessment Noted Time PHQ-9 Depression Total Score: 4 05/06/20 24 9:16 AM EST documented as of this encounter Care Teams Florist Relationship Specialty Start Date End Date Uma Chung MD [address] [place] [address] PCP - General Family Medicine 02/21/18 Altranais 09/15/24 documented as of this encounter
--- OUTSIDE RECORDS SUMMARY | 2025-04-10 08:31 | XMS_ITS | Encounter Summary ---
Author Organization [employer] Address 75 [facility] 7t [place] [address] Care Team Providers Care Natural History Collections Curator Name Role Phone Uma Chung MD Primary Care Provide r Reason for Visit * Reason Onset Date Comments Referral 01/20/2025 Encounter Details Date Type Department Care Team ([facility] st Contact Info) Description 01/20/2025 Telephone [facility] MEDICINE [address] [place] [address] Uma Chung MD [address] [place] [address] Referral Social History Tobacco Use Types Packs/Day [...] 01/20/2025 9:35 AM EDT Noted referral to [facility] from 05/06/24, last communication states Referral faxed with attachment promotion writer will follow up with referral status Please advise on status of referral, and if son can call to schedule appt. Thank you!!! * Telephone Encounter - Anshul Brumfield - 01/20/2025 9:05 AM EDT Tc from pt son requesting for a referral to a blindstitch lining feller for pt Contact pt at [phone] documented in this encounter Plan of Treatment Upcoming Encounters Date Type Department Care Team (Late st Contact Info) Description 06/25/2025 10:00 AM EST Telemedicine [facility] MEDICINE [address] [place] [address] Emi Harrell RN documented as of this encounter Visit Diagnoses Not on filedocumented in this encounter Additional Health Concerns Assessment Noted Time PHQ-9 Depression Total Score: 4 12/04/20 24 9:16 AM EST documented as of this encounter Care Teams Natural History Collections Curator Relationship Specialty Start Date End Date Uma Chung MD [address] [place] [address] PCP - General Family Medicine 02/21/18 Altranais 09/15/24 documented as of this encounter
--- OUTSIDE RECORDS SUMMARY | 2025-04-10 08:31 | XMS_ITS | Encounter Summary ---
Author Organization [employer] Address [address] [facility] [address] 7t [place] [address] Care Team Providers Care Transport Rn Name Role Phone Uma Chung MD Primary Care Provide r Encounter Details Date Type Department Care Team (Late st Contact Info) Description 03/21/2023 Orders Only [facility] MED [facility] PEDS [address] [place] [address] Lay Grimaldo LPN Social History Tobacco Use [...] Info) Description 06/25/2025 10:00 AM EST Telemedicine [facility] MEDICINE [address] [place] [address] Emi Harrell, LAINA documented as of this encounter Visit Diagnoses Not on filedocumented in this encounter Additional Health Concerns Assessment Noted Time PHQ-9 Depression Total Score: 0 12/13/19 23 10:21 AM EDT documented as of this encounter Care Teams Transport Rn Relationship Specialty Start Date End Date Uam Chung MD [address] [place] [address] PCP - General Family Medicine 02/21/18 Altranais 09/15/24 documented as of this encounter
--- OUTSIDE RECORDS SUMMARY | 2025-04-10 08:31 | XMS_ITS | Encounter Summary ---
Author Organization [employer] Address 75 [facility] 7t [place] [address] Care Team Providers Care Vertical Lathe Operator Name Role Phone Uma Chung MD Primary Care Provide r Reason for Visit * Reason Onset Date Comments Med Refill 11/12/2024 Encounter Details Date Type Department Care Team ([facility] st Contact Info) Description 11/12/2024 Telephone [facility] [address] [place] [address] Uma Chung MD [address] [place] [address] Med Refill Social History Tobacco Use Types [...] 24 hr capsule To be sent to: [facility] [place] - [address] [facility] documented in this encounter Plan of Treatment Upcoming Encounters Date Type Department Care Team ([facility] Contact Info) Description 06/25/2025 10:00 AM EST Telemedicine [facility] MEDICINE [address] [place] [address] Emi Harrell RN documented as of this encounter Visit Diagnoses Not on filedocumented in this encounter Additional Health Concerns Assessment Noted Time PHQ-9 Depression Total Score: 4 05/06/20 24 9:16 AM EST documented as of this encounter Care Teams Vertical Lathe Operator Relationship Specialty Start Date End Date Uma Chung MD [address] [place] [address] PCP - General Family Medicine 02/21/18 Altranais 09/15/24 documented as of this encounter
--- OUTSIDE RECORDS SUMMARY | 2025-04-10 08:31 | XMS_ITS | Encounter Summary ---
Author Organization [employer] Address [address] [facility] 7t [place] [address] Care Team Providers Care End Worker Name Role Phone Uma Chung MD Primary Care Provide r Reason for Visit * Reason Comments Med Refill Encounter Details Date Type Department Care Team ([facility] st Contact Info) Description 07/17/2023 Refill [facility] MEDICINE 230 [place], [place] [phone] Uma Chung MD [address] [place] [address] Osteoarthritis involving multiple joints on both sides [...] Info) Description 06/25/2025 10:00 AM EST Telemedicine [facility] MEDICINE [address] [place] [address] Emi Harrell RN documented as of this encounter Visit Diagnoses Diagnosis Osteoarthritis involving multiple joints on both sides of body documented in this encounter Additional Health Concerns Assessment Noted Time PHQ-9 Depression Total Score: 0 12/13/19 23 10:21 AM EDT documented as of this encounter Care Teams End Worker Relationship Specialty Start Date End Date Uma Chung MD [address] [place] [address] PCP - General Family Medicine 02/21/18 Altranzenobias 09/15/24 documented as of this encounter
--- OUTSIDE RECORDS SUMMARY | 2025-04-10 08:31 | XMS_ITS | Encounter Summary ---
Author Organization [employer] Address [address] [facility] 7t [place] [address] Care Team Providers Care Pharmacy Clerk Name Role Phone Uma Chung MD Primary Care Provide r Reason for Visit * Reason Onset Date Comments FYI 03/23/2025 Encounter Details Date Type Department Care Team ([facility] st Contact Info) Description 03/23/2025 Telephone [facility] MEDICINE [address] [place] [address] Uma Chung MD [address] [place] [address] FYI Social History Tobacco Use Types Packs/Day Years [...] encounter Miscellaneous Notes * Telephone Encounter - Chad Robledo - 03/23/2025 11:10 AM EDT Tc from son calling in regards to tomorrow's CYCLE COUNTER visit. Son would like for nurse to call with an wad impregnator and left a number for wad impregnator. Electrical Line Worker: [phone] documented in this encounter Plan of Treatment Upcoming Encounters Date Type Department Care Team (Late st Contact Info) Description 06/25/2025 10:00 AM EST Telemedicine [facility] MEDICINE [address] [place] [address] Emi Harrell RN documented as of this encounter Visit Diagnoses Not on filedocumented in this encounter Additional Health Concerns Assessment Noted Time PHQ-9 Depression Total Score: 4 05/06/20 24 9:16 AM EST documented as of this encounter Care Teams Pharmacy Clerk Relationship Specialty Start Date End Date Uma Chung MD [address] [place] [address] PCP - General Family Medicine 02/21/18 Altranais 09/15/24 documented as of this encounter
--- OUTSIDE RECORDS SUMMARY | 2025-04-10 08:31 | XMS_ITS | Encounter Summary ---
Author Organization [facility] Address [address] [place] [address] [address] [place] [address] Care Team Providers Care Clinical Education Consultant Name Role Phone Uma Chung MD Primary Care Provide r Encounter Details Date Type Department Care Team (Late Contact Info) Description 02/08/2023 Orders Only [facility] MEDICINE [address] [place] [address] Provider, Nathan, Social History Tobacco Use Types Packs/Day Years [...] Info) Description 06/25/2025 10:00 AM EST Telemedicine [address] [address] Emi Harrell RN documented as of this encounter Procedures Procedure Name Priority Date/Time Associated Diagnosis Comments HM COLONOSCOPY Routine 08/07/2011 documented in this encounter Results * Hm Colonoscopy (08/07/2011) Historical Provider HEALTH MAINTENANCE Final Result documented in this encounter Visit Diagnoses Not on filedocumented in this encounter Additional Health Concerns Assessment Noted Time PHQ-9 Depression Total Score: 0 12/13/19 23 10:21 AM EDT documented as of this encounter Care Teams Clinical Education Consultant Relationship Specialty Start Date End Date Uma Chung MD [address] [place] [address] PCP - General Family Medicine 02/21/18 Altranais 09/15/24 documented as of this encounter
--- OUTSIDE RECORDS SUMMARY | 2025-04-10 08:31 | XMS_ITS | Encounter Summary ---
Author Organization [employer] Address [address] [facility] 7t [place] [address] Care Team Providers Care Diagnostic Radiologic Technologist Name Role Phone Uma Chung MD Primary Care Provide r Reason for Visit * Reason Onset Date Comments Nurse Triage 01/14/2024 Encounter Details Date Type Department Care Team ([facility] st Contact Info) Description 01/14/2024 Telephone [facility] MEDICINE [address] [place] [address] Uma Chung MD [address] [place] [address] Nurse Triage Social History Tobacco Use Types [...] Info) Description 06/25/2025 10:00 AM EST Telemedicine [facility] MEDICINE [address] [place] [address] Emi Harrell, LAINA documented as of this encounter Visit Diagnoses Not on filedocumented in this encounter Additional Health Concerns Assessment Noted Time PHQ-9 Depression Total Score: 0 12/13/19 23 10:21 AM EDT documented as of this encounter Care Teams Diagnostic Radiologic Technologist Relationship Specialty Start Date End Date Uma Chung MD [address] [place] [address] PCP - General Family Medicine 02/21/18 Altranais 09/15/24 documented as of this encounter
--- OUTSIDE RECORDS SUMMARY | 2025-04-10 08:31 | XMS_ITS | Encounter Summary ---
Author Organization [employer] Address [address] [facility] 7t [place] [address] Care Team Providers Care Dry Cleaner Presser Name Role Phone Uma Chung MD Primary Care Provide r Reason for Visit * Reason Comments Med Refill Encounter Details Date Type Department Care Team ([facility] st Contact Info) Description 03/24/2025 Refill [facility] MED[facility]INE [address] [place], [place] [phone] Uma Chung MD [address] [place] [address] Osteoarthritis involving multiple joints on both sides [...] Info) Description 06/25/2025 10:00 AM EST Telemedicine [facility] MED[facility]INE [address] [place] [address] Emi Harrell, RN documented as of this encounter Visit Diagnoses Diagnosis Osteoarthritis involving multiple joints on both sides of body documented in this encounter Additional Health Concerns Assessment Noted Time PHQ-9 Depression Total Score: 4 05/06/20 24 9:16 AM EST documented as of this encounter Care Teams Dry Cleaner Presser Relationship Specialty Start Date End Date Uma Chung MD [address] [place] [address] PCP - General Family Medicine 02/21/18 Altranais 09/15/24 documented as of this encounter
--- OUTSIDE RECORDS SUMMARY | 2025-04-10 08:31 | XMS_ITS | Encounter Summary ---
Author Organization [employer] Address [address] [facility] 7t [place] [address] Care Team Providers Care Care Assistant Name Role Phone Uma Chung MD Primary Care Provide r Encounter Details Date Type Department Care Team (Late st Contact Info) Description 07/16/2024 Orders Only [facility]INE [address] [place], [place] [phone] Uma Chung MD [address] [place] [address] Social History Tobacco Use Types Packs/Day Years [...] Info) Description 06/25/2025 10:00 AM EST Telemedicine [facility] [address] [place] [address] Emi Harrell RN documented as of this encounter Visit Diagnoses Not on filedocumented in this encounter Additional Health Concerns Assessment Noted Time PHQ-9 Depression Total Score: 4 05/06/20 24 9:16 AM EST documented as of this encounter Care Teams Care Assistant Relationship Specialty Start Date End Date Uma Chung MD [address] [place] [address] PCP - General Family Medicine 02/21/18 Altranais 09/15/24 documented as of this encounter
--- OUTSIDE RECORDS SUMMARY | 2025-04-10 08:31 | XMS_ITS | Encounter Summary ---
Author Organization [employer] Address [address] [facility] 7t [place] [address] Care Team Providers Care Marklogic Developer Name Role Phone Uma Chung MD Primary Care Provide r Reason for Visit * Reason Comments Med Refill Encounter Details Date Type Department Care Team ([facility] st Contact Info) Description 11/30/2024 Refill [facility] MED[facility]INE [address] [place], [place] [phone] Uma Chung MD 230 [place] [address] Gastroesophageal reflux disease, unspecified whether esophagitis present; [...] Info) Description 06/25/2025 10:00 AM EST Telemedicine [facility] [address] [place] [phone] Emi Harrell, RN documented as of this encounter Visit Diagnoses Diagnosis Gastroesophageal reflux disease, unspecified whether esophagitis present Hypertension, unspecified type documented in this encounter Additional Health Concerns Assessment Noted Time PHQ-9 Depression Total Score: 4 05/06/20 24 9:16 AM EST documented as of this encounter Care Teams Marklogic Developer Relationship Specialty Start Date End Date Uma Chung MD [address] [place] [address] PCP - General Family Medicine 02/21/18 Altranais 09/15/24 documented as of this encounter
--- OUTSIDE RECORDS SUMMARY | 2025-04-10 08:31 | XMS_ITS | Encounter Summary ---
Author Organization [employer] Address [address] [facility] 7t [place] [address] Care Team Providers Care Geography Department Chair Name Role Phone Uma Chung MD Primary Care Provide r Reason for Visit * Reason Comments Med Refill Encounter Details Date Type Department Care Team ([facility] st Contact Info) Description 07/22/2024 Refill [facility] MEDICINE 230 [place], [place] [phone] Uma Chung MD 230 [place], [place] [phone] Erectile dysfunction, unspecified erectile dysfunction type Social [...] Info) Description 06/25/2025 10:00 AM EST Telemedicine [facility] MEDICINE [address] [place] [address] Emi Harrell, RN documented as of this encounter Visit Diagnoses Diagnosis Erectile dysfunction, unspecified erectile dysfunction type documented in this encounter Additional Health Concerns Assessment Noted Time PHQ-9 Depression Total Score: 4 05/06/20 24 9:16 AM EST documented as of this encounter Care Teams Geography Department Chair Relationship Specialty Start Date End Date Uma Chung MD [address] [place] [address] PCP - General Family Medicine 02/21/18 Altranais 09/15/24 documented as of this encounter
--- OUTSIDE RECORDS SUMMARY | 2025-04-10 08:31 | XMS_ITS | Encounter Summary ---
Author Organization [employer] Address 75 [facility] 7t [place] [address] Care Team Providers Care Mine Safety Manager Name Role Phone Uma Chung MD Primary Care Provide r Reason for Visit * Reason Onset Date Comments Referral 03/02/2025 Encounter Details Date Type Department Care Team ([facility] st Contact Info) Description 03/02/2025 Telephone [facility] MEDICINE 230 [place] [address] Uma Chung MD 230 [place] [address] Referral Social History Tobacco Use Types Packs/Day [...] Pt. Last seen by [facility] October 2024, [place] location now closed. Son is requesting referral to [facility] cardiology. Diagnoses: [place], CHF, hypertension, CAD, cardiomyopathy * Telephone Encounter - Anshul Brumfield - 03/02/2025 8:19 AM EDT Tc from pt son requesting a referral to a spinning machine operator Myles Augustine at [facility] Contact pt son at [phone] documented in this encounter Plan of Treatment Upcoming Encounters Date Type Department Care Team (Late st Contact Info) Description 06/25/2025 10:00 AM EST Telemedicine [facility] MED[facility]INE [address] [place] [phone] Emi Harrell RN documented as of this encounter Visit Diagnoses Not on filedocumented in this encounter Additional Health Concerns Assessment Noted Time PHQ-9 Depression Total Score: 4 05/06/20 9:16 AM EST documented as of this encounter Care Teams Mine Safety Manager Relationship Specialty Start Date End Date Uma Chung MD 230 [place] [address] PCP - General Family Medicine 02/21/18 Altranais 09/15/24 documented as of this encounter
--- OUTSIDE RECORDS SUMMARY | 2025-04-10 08:31 | XMS_ITS | Encounter Summary ---
Author Organization [employer] Address [address] [place] [address] 7 [place] [address] Care Team Providers Care Sheriff Deputy Name Role Phone Uma Chung MD Primary Care Provide r Reason for Visit * Reason Comments Med Refill Encounter Details Date Type Department Care Team (Late Contact Info) Description 03/01/2023 Refill [facility] [address] [place], [place] [phone] Uma Chung MD [address] [place] [address] [phone] Other chronic pain Social History Tobacco Use [...] Department Care Team (Late Contact Info) Description 06/25/2025 10:00 AM EST Telemedicine [facility] MED[facility]INE [address] [place] [address] [phone] Emi Harrell RN documented as of this encounter Visit Diagnoses Diagnosis Other chronic pain documented in this encounter Additional Health Concerns Assessment Noted Time PHQ-9 Depression Total Score: 0 12/13/19 23 10:21 AM EDT documented as of this encounter Care Teams Sheriff Deputy Relationship Specialty Start Date End Date Uma Chung MD 230 [place] [address] PCP - General Family Medicine 02/21/18 Altranais 09/15/24 documented as of this encounter
--- OUTSIDE RECORDS SUMMARY | 2025-04-10 08:31 | XMS_ITS | Encounter Summary ---
Author Organization [employer] Address [address] [facility] 7t [place] [address] Care Team Providers Care Brake Repairer Air Name Role Phone Uma Chung MD Primary Care Provide r Reason for Visit * Reason Onset Date Comments Appointment Request 10/25/2022 Encounter Details Date Type Department Care Team ([facility] st Contact Info) Description 10/25/2022 Telephone [facility] MEDICINE [address] [place] [address] Uma Chung MD [address] [place] [address] Appointment Request Social History Tobacco Use Types [...] requesting to r/s appt for 10/26/2022 of SOLAR SALES ASSESSOR Please contact pt son at [phone] documented in this encounter Plan of Treatment Upcoming Encounters Date Type Department Care Team (Late st Contact Info) Description 06/25/2025 10:00 AM EST Telemedicine [facility] MEDICINE [address] [place] [address] Emi Harrell RN documented as of this encounter Visit Diagnoses Not on filedocumented in this encounter Care Teams Brake Repairer Air Relationship Specialty Start Date End Date Uma Chung MD 230 [place] [address] PCP - General Family Medicine 02/21/18 Altranais 09/15/24 documented as of this encounter
--- OUTSIDE RECORDS SUMMARY | 2025-04-10 08:31 | XMS_ITS | Data Portability ---
Author Organization [employer] Address [address] [place] [address] Care Team Providers Care Junior Data Analyst Name Role Phone LARA GARCIA Primary Care Provider [facility] OTHER Assessment No assessment recorded. Plan [...] Diagnosis SNOMED-CT Code Diagnosis ICD10 Code Diagnosis IMO Codes Diagnosis Note [id number] Porter Bran MD Main - [facility] [address] [place] [phone] 04/25/2024 14:33:24 04/27/2024 17:48:06 Acute exacerbation of chronic obstructive pulmonary disease [id number] J44.1 As noted, we were called to see this patient regarding concerns of need for post-d/c check. Evaluation in the field was performed by my frame trimmer colleague, as noted above, I provided real-time [...] so no role for abx here. [facility] Primary caredanielle visit this week to [...] Pedersen Member ID Guarantor Name 04/22/2024 1 [facility] - DOS ON OR AFTER 2022 - DUAL ELIGIBLE - JAIL OPTIONS AND ONE CARE (MEDICARE REPLACEMENT/ADV ANTAGE - HMO) Phil Kebede [id number] Phil Kebede Notes Date Note Type Note [...] elevated. Would also like eval of BP. Fleet Sales Associate Organization Information for JuanColeman davies [employer] Name: [facility] Address: [address] [place] [address], [place] [address], Epic Prelude Analyst: Rei Blake MD CLIA No.: [id number] Fleet Sales Associate POC Test Results from Coleman Stauffer Blood Glucose Measurement (14:28:26) Blood Glucose: 311 mg/dL Rapid COVID antigen (14:28:30) COVID: - Rapid influenza antigen (14:28:30) Flu: - .................... .................... .................... .................... .................... .................... .................... . Fleet Sales Associate Note From Coleman Stauffer: This 73-year-old male with a history including but not limited to DM type II, HTN, gout, OA requested a visit to address multiple complaints. Patient states he was seen at [facility] emergency department on 04/17/24 and states [...] .................... .................... .................... .................... .................... .................... . [facility] Consulted: Cory Bran .................... .................... .................... .................... .................... .................... .................... . Disposition: Fulfilled Porter Bran MD [address] [facility],[address], [place], [address], [facility] 04/26/2024 16:58:35
--- OUTSIDE RECORDS SUMMARY | 2025-04-10 08:31 | XMS_ITS | Encounter Summary ---
Author Organization [employer] Address 75 [facility] 7t [place] [address] Care Team Providers Care Telephone Sales Representative Name Role Phone Uma Chung MD Primary Care Provide r Reason for Visit * Reason Onset Date Comments Med Refill 06/15/2024 Encounter Details Date Type Department Care Team ([facility] st Contact Info) Description 06/15/2024 Telephone [facility] MEDICINE [address] [place] [address] Uma Chung MD [address] [place] [address] Med Refill Social History Tobacco Use Types [...] 100 MG tablet To be sent to: [facility] documented in this encounter Plan of Treatment Upcoming Encounters Date Type Department Care Team (Late st Contact Info) Description 06/25/2025 10:00 AM EST Telemedicine [facility] MEDICINE [address] [place] [address] Emi Harrell RN documented as of this encounter Visit Diagnoses Not on filedocumented in this encounter Additional Health Concerns Assessment Noted Time PHQ-9 Depression Total Score: 4 05/06/20 24 9:16 AM EST documented as of this encounter Care Teams Telephone Sales Representative Relationship Specialty Start Date End Date Uma Chung MD [address] [place] [address] PCP - General Family Medicine 02/21/18 Altranais 09/15/24 documented as of this encounter
--- OUTSIDE RECORDS SUMMARY | 2025-04-10 08:31 | XMS_ITS | Encounter Summary ---
Author Organization [employer] Address 75 [facility] 7t [place] [address] Care Team Providers Care Criminal Investigator Customs Name Role Phone Uma Chung MD Primary Care Provide r Reason for Visit * Reason Comments Med Refill Encounter Details Date Type Department Care Team ([facility] st Contact Info) Description 01/02/2024 Refill [facility] MEDICINE 230 [place], [place] [phone] Uma Chung MD [address] [place] [address] Osteoarthritis involving multiple joints on both sides [...] Info) Description 06/25/2025 10:00 AM EST Telemedicine [facility] MEDICINE [address] [place] [address] Emi Harrell RN documented as of this encounter Visit Diagnoses Diagnosis Osteoarthritis involving multiple joints on both sides of body documented in this encounter Additional Health Concerns Assessment Noted Time PHQ-9 Depression Total Score: 0 12/13/19 23 10:21 AM EDT documented as of this encounter Care Teams Criminal Investigator Customs Relationship Specialty Start Date End Date Uma Chung MD [address] [place] [address] PCP - General Family Medicine 02/21/18 Altranzenobias 09/15/24 documented as of this encounter
--- OUTSIDE RECORDS SUMMARY | 2025-04-10 08:31 | XMS_ITS | Encounter Summary ---
Author Organization [employer] Address [address] [facility] 7t [place] [address] Care Team Providers Care Director Of Women'S Services Name Role Phone Uma Chung MD Primary Care Provide r Reason for Visit * Reason Comments Med Refill Encounter Details Date Type Department Care Team ([facility] st Contact Info) Description 03/05/2025 Refill [facility] MEDICINE [address] [place] [address] Uma Chung MD [address] [place] [address] Hypertension, unspecified type; Gastroesophageal reflux disease, unspecified whether esophagitis present Social History Tobacco Use Types Packs/Day Years [...] AM EST Telemedicine [facility] MEDICINE [address] [place] [address] Emi Harrell, RN documented as of this encounter Visit Diagnoses Diagnosis Hypertension, unspecified type Gastroesophageal reflux disease, unspecified whether esophagitis present documented in this encounter Additional Health Concerns Assessment Noted Time PHQ-9 Depression Total Score: 4 05/06/20 24 9:16 AM EST documented as of this encounter Care Teams Director Of Women'S Services Relationship Specialty Start Date End Date Uma Chung MD [address] [place] [address] PCP - General Family Medicine 02/21/18 Altranais 09/15/24 documented as of this encounter
--- OUTSIDE RECORDS SUMMARY | 2025-04-10 08:31 | XMS_ITS | Encounter Summary ---
Author Organization [employer] Address 75 [facility] 7t [place] [address] Care Team Providers Care Net Trainer Name Role Phone Uma Chung MD Primary Care Provide r Reason for Visit * Reason Onset Date Comments Med Refill 03/15/2023 Encounter Details Date Type Department Care Team ([facility] st Contact Info) Description 03/15/2023 Refill [facility]INE [address] [place] [address] Uma Chung MD 230 [place] [address] Osteoarthritis involving multiple joints on both sides [...] - 03/15/2023 12:00 PM EDT TC to [facility] pharmacy, spoke with Ema, confirmed that Percocet from 03/13/23 was not dispensed.Requested RX be cancelled. * Telephone Encounter - Meg Castelan - 03/15/2023 11:34 AM EDT Tc from son requesting new script to be send to [facility], son stated [facility] has blue pills and pt wants white ones. documented in this encounter Plan of Treatment Upcoming Encounters Date Type Department Care Team (Late st Contact Info) Description 06/25/2025 10:00 AM EST Telemedicine [facility]INE [address] [place] [address] Emi Harrell RN documented as of this encounter Visit Diagnoses Diagnosis Osteoarthritis involving multiple joints on both sides of body documented in this encounter Additional Health Concerns Assessment Noted Time PHQ-9 Depression Total Score: 0 12/13/19 23 10:21 AM EDT documented as of this encounter Care Teams Net Trainer Relationship Specialty Start Date End Date Uma Chung MD [address] [place] [address] PCP - General Family Medicine 9/21/18 Altranais 09/15/24 documented as of this encounter
--- OUTSIDE RECORDS SUMMARY | 2025-04-10 08:31 | XMS_ITS | Encounter Summary ---
Author Organization [employer] Address [address] [facility] 7t [place] [address] Care Team Providers Care Cone Marker Name Role Phone Uma Chung MD Primary Care Provide r Encounter Details Date Type Department Care Team ([facility] st Contact Info) Description 10/16/2023 Telephone [facility] MEDICINE [address] [place] [address] Uma Chung MD [address] [place] [address] Social History Tobacco Use Types Packs/Day Years [...] Info) Description 06/25/2025 10:00 AM EST Telemedicine [facility] MEDICINE [address] [place] [address] Emi Harrell RN documented as of this encounter Visit Diagnoses Not on filedocumented in this encounter Additional Health Concerns Assessment Noted Time PHQ-9 Depression Total Score: 0 12/13/19 23 10:21 AM EDT documented as of this encounter Care Teams Cone Marker Relationship Specialty Start Date End Date Uma Chung MD [address] [place] [address] PCP - General Family Medicine 02/21/18 Salome 09/15/24 documented as of this encounter
--- OUTSIDE RECORDS SUMMARY | 2025-04-10 08:31 | XMS_ITS | Encounter Summary ---
Author Organization [employer] Address [address] [facility] 7t [place] [address] Care Team Providers Care Manager Procurement Name Role Phone Uma Chung MD Primary Care Provide r Reason for Visit * Reason Onset Date Comments Med Refill 01/10/2023 Encounter Details Date Type Department Care Team ([facility] st Contact Info) Description 01/10/2023 Telephone [facility] MEDICINE [address] [place] [address] Uma Chung MD [address] [place] [address] Med Refill Social History Tobacco Use Types [...] EST Telemedicine [facility] MEDICINE [address] [place] [address] Emi Harrell, RN documented as of this encounter Visit Diagnoses Not on filedocumented in this encounter Additional Health Concerns Assessment Noted Time PHQ-9 Depression Total Score: 0 12/13/19 23 10:21 AM EDT documented as of this encounter Care Teams Manager Procurement Relationship Specialty Start Date End Date Uma Chung MD [address] [place] [address] PCP - General Family Medicine 02/21/18 Altranais 09/15/24 documented as of this encounter
--- OUTSIDE RECORDS SUMMARY | 2025-04-10 08:31 | XMS_ITS | Encounter Summary ---
Author Organization [employer] Address [address] [facility] 7t [place] [address] Care Team Providers Care Senior Designer/Art Director Name Role Phone Uma Chung MD Primary Care Provide r Reason for Visit * Reason Comments Med Refill Encounter Details Date Type Department Care Team ([facility] st Contact Info) Description 10/23/2024 Refill [facility] MEDICINE [address] [place], [place] [phone] Uma Chung MD [address] [place] [address] Hypertension, unspecified type Social History Tobacco Use [...] Info) Description 06/25/2025 10:00 AM EST Telemedicine [facility] MEDICINE [address] [place] [address] Emi Harrell, LAINA documented as of this encounter Visit Diagnoses Diagnosis Hypertension, unspecified type documented in this encounter Additional Health Concerns Assessment Noted Time PHQ-9 Depression Total Score: 4 05/06/20 24 9:16 AM EST documented as of this encounter Care Teams Senior Designer/Art Director Relationship Specialty Start Date End Date Uma Chung MD [address] [place] [address] PCP - General Family Medicine 02/21/18 Altranais 09/15/24 documented as of this encounter
--- OUTSIDE RECORDS SUMMARY | 2025-04-10 08:31 | XMS_ITS | Encounter Summary ---
Author Organization [employer] Address [address] [facility] 7t [place] [address] Care Team Providers Care Network Architect Manager Name Role Phone Uma Chung MD Primary Care Provide r Reason for Visit * Reason Comments Med Refill Encounter Details Date Type Department Care Team ([facility] st Contact Info) Description 01/18/2025 Refill [facility] MEDICINE [address] [place] [address] Uma Chung MD [address] [place] [address] Social History Tobacco Use Types Packs/Day Years [...] Info) Description 06/25/2025 10:00 AM EST Telemedicine [facility] MEDICINE [address] [place] [address] Emi Harrell RN documented as of this encounter Visit Diagnoses Not on filedocumented in this encounter Additional Health Concerns Assessment Noted Time PHQ-9 Depression Total Score: 4 05/06/20 24 9:16 AM EST documented as of this encounter Care Teams Network Architect Manager Relationship Specialty Start Date End Date Uma Chung MD [address] [place] [address] PCP - General Family Medicine 02/21/18 Altranais 09/15/24 documented as of this encounter
--- OUTSIDE RECORDS SUMMARY | 2025-04-10 08:31 | XMS_ITS | Encounter Summary ---
Author Organization [employer] Address 75 [facility] 7t [place] [address] Care Team Providers Care Service Supervisor Name Role Phone Uma Chung MD Primary Care Provide r Encounter Details Date Type Department Care Team (Late st Contact Info) Description 02/06/2023 Orders Only [facility] [address] [place], [place] [phone] Lay Grimaldo LPN Social History Tobacco Use [...] Info) Description 06/25/2025 10:00 AM EST Telemedicine [facility] MEDICINE [address] [place] [address] Emi Harrell RN documented as of this encounter Visit Diagnoses Not on filedocumented in this encounter Additional Health Concerns Assessment Noted Time PHQ-9 Depression Total Score: 0 12/13/19 23 10:21 AM EDT documented as of this encounter Care Teams Service Supervisor Relationship Specialty Start Date End Date Uma Chung MD [address] [place] [address] PCP - General Family Medicine 02/21/18 Altranais 09/15/24 documented as of this encounter
--- OUTSIDE RECORDS SUMMARY | 2025-04-10 08:31 | XMS_ITS | Encounter Summary ---
Author Organization [employer] Address [address] [facility] [address] [facility] [address] [place] [address] Care Team Providers Care Container Shop Welder Name Role Phone Uma Chung MD Primary Care Provide r Encounter Details Date Type Department Care Team (Late st Contact Info) Description 05/14/2023 Orders Only [facility] MED & PEDS [address] [place] [address] Chelly Holloway LPN Social History Tobacco Use [...] Info) Description 06/25/2025 10:00 AM EST Telemedicine [facility] MED[facility]INE [address] [place] [address] Emi Harrell, LAINA documented as of this encounter Visit Diagnoses Not on filedocumented in this encounter Additional Health Concerns Assessment Noted Time PHQ-9 Depression Total Score: 0 12/13/19 23 10:21 AM EDT documented as of this encounter Care Teams Container Shop Welder Relationship Specialty Start Date End Date Uma Chung MD [address] [place] [address] PCP - General Family Medicine 02/21/18 Altranais 09/15/24 documented as of this encounter
--- OUTSIDE RECORDS SUMMARY | 2025-04-10 08:31 | XMS_ITS | Encounter Summary ---
Author Organization [employer] Address [address] [facility] 7[address] [place] [address] Care Team Providers Care Bridge Operator Name Role Phone Uma Chung MD Primary Care Provide r Encounter Details Date Type Department Care Team ([facility] st Contact Info) Description 07/12/2023 Telephone [facility] [address] [place] [address] Uma Chung MD [address] [place] [address] Social History Tobacco Use Types Packs/Day Years [...] Info) Description 06/25/2025 10:00 AM EST Telemedicine [facility] [address] [place] [address] Emi Harrell RN documented as of this encounter Visit Diagnoses Not on filedocumented in this encounter Additional Health Concerns Assessment Noted Time PHQ-9 Depression Total Score: 0 12/13/19 23 10:21 AM EDT documented as of this encounter Care Teams Bridge Operator Relationship Specialty Start Date End Date Uma Chung MD [address] [place] [address] PCP - General Family Medicine 02/21/18 Salome 09/15/24 documented as of this encounter
--- OUTSIDE RECORDS SUMMARY | 2025-04-10 08:31 | XMS_ITS | Clinical Summary ---
Author Organization [employer] Address [address] [facility] 7[address] [place] [address] Care Team Providers Care Windows Vmware Engineer Name Role Phone Uma Chung MD Primary Care Provide r Allergies No known active allergies Medications Blood Glucose Monitoring Suppl (FreeStyle [place]ioch Lite) w/Device kit Use to check BS 3x a day 1 kit 04/27/20 Active FREESTYLE LITE test strip Use to check BS 3x daily 100 each 12 04/27/20 24 2024 Active TRUEplus Lancets 33G misc Use to check BS 3x daily. 100 each 04/27/20 Active Blood Pressure kitIndications:Es sential hypertension 1 [...] bedtime. 60 tablet 1 09/16/19 25 Active melatonin 5 MG tabletIndications :Insomnia, unspecified type TAKE 2 TABLETS BY MOUTH EVERY DAY AT BEDTIME 60 tablet 1 01/07/20 25 Active pantoprazole (ProtoNix) 40 MG EC tabletIndications :Gastroesophageal reflux disease without esophagitis TAKE 1 TABLET BY MOUTH EVERY DAY BEFORE BREAKFAST DO NOT BREAK, CRUSH, DISSOLVE OR CHEW 30 tablet 1 03/08/20 25 Active Tradjenta 5 MG tabletIndications :Type 2 diabetes mellitus without complication, without long-term current use of insulin (HCC) TAKE 1 TABLET BY MOUTH EVERY DAY 30 tablet 1 03/08/20 25 Active polyethylene glycol, PEG, 3350 (Glycolax) 17 GM/SCOOP powderIndications :Constipation, unspecified constipation type TAKE 17 GM MIXED IN 8 OUNCES OF WATER ONCE DAILY 510 g 1 03/08/20 25 Active tamsulosin (Flomax) 0.4 MG 24 hr capsuleIndication s:Horseshoe kidney TAKE 2 CAPSULES BY MOUTH EVERY DAY 60 capsule 1 03/08/20 25 Active metoprolol tartrate (Lopressor) 25 MG tabletIndications :Essential hypertension TAKE 1/2 TABLET BY MOUTH TWICE DAILY 30 tablet 1 03/08/20 25 Active Aspirin Low Dose 81 MG chewable tabletIndications :H/O non-ST elevation myocardial infarction (NSTEMI) CHEW AND SWALLOW 1 TABLET EVERY DAY 30 tablet 1 03/08/20 25 Active clopidogrel (Plavix) 75 MG tabletIndications :H/O non-ST elevation myocardial infarction (NSTEMI) TAKE 1 TABLET BY MOUTH EVERY DAY 30 tablet 1 03/08/20 25 Active atorvastatin (Lipitor) 80 MG tabletIndications :Hyperlipidemia, unspecified hyperlipidemia type TAKE 1 TABLET BY MOUTH EVERY DAY 30 tablet 1 03/08/20 25 Active thiamine (Vitamin B-1) 100 MG tabletIndications :H/O non-ST elevation myocardial infarction (NSTEMI) TAKE 1 TABLET BY MOUTH EVERY DAY 30 tablet 1 03/08/20 25 Active oxyCODONE-acetami nophen (Percocet) 5-325 MG tabletIndications :Osteoarthritis involving multiple joints on both sides of body Take 1 tablet by mouth every 6 (six) hours if needed for severe pain for up to 28 days. 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, without long-term current use of insulin 03/17/2025 Assessment & Plan (03/17/2025 3:10 PM EDT): Diabetes is: controlled - Lab Results Component Value Date HGBA1C 6.2 (A) 03/17/2025 HGBA1C 7.3 (A) 05/06/2024 HGBA1C 6.0 07/10/2023 - Lab Results Component Value Date MICROALBUR 16.4 11/09/2020 CREATININE 2.34 (H) 10/08/2024 -Changes: None - Diabetic eye exam: Patient will set up his appointment - Diabetic foot exam: Referral done today - Continue lifestyle modifications - Continue current medications - Follow up: 3 months Coronary artery disease invo lving comanche coronary artery of comanche heart without angina pectoris 03/17/2025 Assessment & Plan (03/17/2025 3:09 PM EDT): Continue with current medication regimen Follow-up with cardiology he has an appointment on August 24, 2025 S/P CABG (coronary artery bypass graft) 03/17/20 Assessment & Plan (03/17/2025 3:09 PM EDT): Continue with current medications follow-up with cardiology Long-term current use of opiate analgesic 2024 Discomfort of right eye 02/18/2024 Assessment & Plan (02/18/2024 8:06 PM EDT): No erythema in bl conjunctivas, pulps bl mild reactive to light , no eye tenderness w palpation ,no purulent discharge seen -Seen by biometrics analyst in 11/07/2023 dxed w Mild nonproliferative diabetic [...] joints on both sides of body 02/01/2017 Assessment & Plan (03/17/2025 3:11 PM EDT): C/w oxycodone/acetaminophe 5-325mg Q 6hrs PRN Patient will re-schedule his appointment with FISH CLEANER MACHINE TENDER nurse Whole body pain 01/14/2017 Essential hypertension 12/14/2016 [...] Encounters Date Type Department Care Team Description 03/24/2025 8:30 AM EDT Telemedicine [facility] [address] [place] [address] Emi Harrell, RN Long-term current use of opiate analgesic 03/24/2025 Refill [facility] [address] [place] [address] Uma Chung MD Osteoarthritis involving multiple joints on both sides of body 03/24/2025 Refill [facility] [address] [place] [address] Emi Harrell, RN Osteoarthritis involving multiple joints on both sides of body 03/24/2025 Travel 03/23/2025 Telephone [facility] [address] [place] [address] Uma Chung MD FYI 03/18/2025 Telephone [facility] [address] [place] [address] Uma Chung MD DME diabetic shoes 03/18/2025 Telephone [facility] [address] [place] [address] Uma Chung MD DME diabetic shoes 03/17/2025 11:30 AM EDT Office Visit [facility] [address] [place] [address] Uma Chugn MD Atrial fibrillation with RVR (CMS/HCC) (HCC) (Primary Dx); Type 2 diabetes mellitus with stage 4 chronic kidney disease, without long-term current use of insulin (HCC); Osteoarthritis involving multiple joints on both sides of body; Encounter for immunization; Dietary counseling; Exercise counseling; Coronary artery disease involving comanche coronary artery of comanche heart without angina pectoris; S/P CABG (coronary artery bypass graft) 03/17/2025 Travel 03/17/2025 Telephone [facility] [address] [place] [address] Uma Chung MD Chart Prep 03/11/2025 Refill [facility] [address] [place] [address] Uma Chung MD Osteoarthritis involving multiple joints on both sides of body 03/07/2025 Refill [facility] [address] [place] [address] Uma Chung MD Gastroesophageal reflux disease without esophagitis; Type 2 diabetes mellitus without complication, without long-term current use of insulin ([facility]); Constipation, unspecified constipation type; Horseshoe kidney; Essential hypertension; H/O non-ST elevation myocardial infarction (NSTEMI); Hyperlipidemia, unspecified hyperlipidemia type 03/05/2025 Refill [facility] [address] [place] [address] Uma Chung MD Hypertension, unspecified type; Gastroesophageal reflux disease, unspecified whether esophagitis present 03/02/2025 Orders Only [facility] [address] [place] [address] Uma Chung MD Coronary artery disease involving comanche coronary artery of comanche heart, unspecified whether angina present (Primary Dx); Cardiomyopathy, unspecified type (CMS/HCC) 03/02/2025 Telephone [facility] [address] [place] [address] Uma Chung MD Referral 03/02/2025 Refill [facility] [address] [place], [place] [id number] Uma Chung MD Heartburn 02/26/2025 Telephone [facility] [address] [place] [address] Emi Harrell RN Pt cancelled FISH CLEANER MACHINE TENDER RV at check in today 02/10/2025 Refill [facility] [address] [place] [address] Uma Chung MD Osteoarthritis involving multiple joints on both sides of body 01/20/2025 Telephone [facility] [address] [place] [address] Uma Chung MD Referral 01/18/2025 Refill [facility] [address] [place] [address] Uma Chung MD 01/12/2025 Refill [facility] [address] [place] [address] Uma Chung MD Osteoarthritis involving multiple joints on both sides of body from Last 3 Months Immunizations Immunization Administration Dates Next Due Influenza High-dose Quadrivalent Preservative Fr ee 03/29/2020 Influenza, High Dose Seasonal, Preservative Free 03/17/2025,02/24/2018 Influenza, seasonal, injectable, preservative fr ee 05/06/2024 [...] Sign Reading Time Taken Comments Blood Pressure 92/74 03/17/2025 10:28 AM EDT Pulse 86 03/17/2025 10:28 AM EDT Temperature 36 C (96.8 F) 03/17/2025 10:28 AM EDT Respiratory Rate 24 03/17/2025 10:28 AM EDT Oxygen Saturation 98% 03/17/2025 10:28 AM EDT Inhaled Oxygen Concentration - - Weight 84.8 kg (187 lb) 03/17/2025 10:28 AM EDT Height 182.9 cm (6') 03/17/2025 10:28 AM EDT Body Mass Index 25.36 03/17/2025 10:28 AM EDT Plan of Treatment Upcoming Encounters Date Type Department Care Team (Late st Contact Info) Description 06/25/2025 10:00 AM EST Telemedicine [facility] [address] [place] [phone] Emi Harrell, LAINA Health Maintenance Due Date Last Done Comments [...] older (1 - 1-dose 75+ series) 2023 Eye Exam 11/06/2024 11/07/2023, 06/0 11/2023, 11/07/2023, Additional history exists COVID-19 Vaccine ( - 2024-25 season) 2025 05/06/2024, 09/07/2020 Depression Screening 05/06/2025 05/06/2024, 05/06/20 24 SDOH Screening 06/02/2025 06/02/2024 Diabetes: Hemoglobin A1C 09/15/2025 025, 05/06/2024, 07/10/2023, Additional history exists Dental X-Ray: Full Mouth 09/27/2025 09/26/2022 Tobacco Screening 03/17/2026 03/17/2025 Colonoscopy Discontinued 08/07/2011 Colorectal Cancer Screening Discontinued Pneumococcal Vaccine: 50+ Years Completed 07/05/2023 Influenza Vaccine Completed 03/17/2025, , 03/29/2020, Additional history exists CT Colonography Discontinued FIT DNA/Cologuard Discontinued FIT [...] Diagnosis Comments POCT GLYCATED HEMOGLOBIN, TOTAL Routine 03/17/2025 10:29 AM EDT Type 2 diabetes mellitus with stage 4 chronic kidney disease, without long-term current use of insulin (HCC) POCT GLUCOSE Routine 03/17/2025 10:29 AM EDT Type 2 diabetes mellitus with stage 4 chronic kidney disease, without long-term current use of insulin (HCC) PANORAMIC RADIOGRAPHIC IMAGE Routine 09/26/2022 11:30 AM EDT PERIODIC ORAL EVALUATION - ESTABLISHED PATIENT Routine 09/26/2022 11:30 AM EDT [facility] HISTORICAL LIPID PANEL Routine 2021 8:18 AM EST COLONOSCOPY Routine 08/07/2011 from Last 3 Months or Most Recently Relevant to Health Maintenance Results * (ABNORMAL) POCT Hgb A1c (03/17/2025 10:29 AM EDT) Hemoglobin A1C 6.2(A) 4.0 - 5.7 % QC Media Lot # [id number] Lot# Expiration Date [id number] Blood 03/17/2025 10:2 9 AM EDT Uma Friedman MD POINT OF CARE TEST EN TER/EDIT ORDERABLES Final Result * POCT Glucose (03/17/2025 10:29 AM EDT) Glucose Blood, POC 171 60 - 200 mg/dL QC Media Lot # [id number] Lot# Expiration Date 31,126 Blood Capillary blood specimen / Unknown 03/17/2025 10:29 AM EDT Uma Friedman MD POINT OF CARE TEST EN TER/EDIT ORDERABLES Final Result * (ABNORMAL) LIPID PANEL (2021 8:18 AM EST) Cholesterol 155 mg/dL [facility] Comment: Desirable Cholesterol: less than 200 mg/dL Borderline High Cholesterol: 200-239 mg/dL High Cholesterol: greater than 239 mg/dL HDL Cholesterol 31 mg/dL [facility] Comment: Desirable HDL: greater than 40 mg/dL Note: This HDL assay may give artificially low results in patients with liver disease. LDL Cholesterol Calculated 80 mg/dl [facility] Comment: Desirable LDL: less than [...] Alanine Aminotransferase 28 0 - 40 U/L [facility] Albumin Level 4.0 3.5 - 5.0 g/dL [facility] Alkaline Phosphatase 105 39 - 117 U/L [facility] Aspartate Amino Transferase 27 5 - 37 U/L [facility] Bilirubin Direct 0.3 0.0 - 0.5 mg/dL [facility] Bilirubin Total 0.6 0.0 - 1.0 mg/dL [facility] Total Protein 8.1(H) 6.5 - 8.0 g/dL [facility] Vitamin D 25-OH Total 24.0 >30 ng/mL [facility] Comment: Health Based Reference Values* [...] LC-MS/MS. Anion Gap 13 12 - 20 [facility] Blood Urea Nitrogen 32(H) 9 - 16 mg/dL [facility] Calcium 9.7 8.4 - 10.2 mg/dL [facility] Carbon Dioxide 22 22 - 29 mmol/L [facility] Chloride 110(H) 96 - 108 mmol/L [facility] Creatinine, Serum 1.93(H) 0.5 - 1.4 mg/dL [facility] Estimated Glomerular Filt Rate 34 [facility] Comment: NOTE: For -[place]imbabwe[place] individuals, multiply the result by 1.210. Chronic Kidney Disease: Estimated GFR < 60 mL/min/1.73m2 Severe Kidney Disease: Estimated GFR < 15 mL/min/1.73m2 Glucose Random 168(H) 60 - 115 mg/dL [facility] Potassium 5.1 3.3 - 5.1 mmol/L [facility] Sodium 140 135 - 145 mmol/L [facility] TSH reflex Free T4 1.51 0.32 - 4.0 uIU/mL [facility] 2021 8:18 AM EST us Uma Friedman MD HISTORICAL/NON ORDERA BLE LABS Final Result [facility] [address] * Colonoscopy (08/07/2011) us Historical Provider HEALTH MAINTENANCE Final Result from Last 3 Months or Most Recently Relevant to Health Maintenance Insurance [facility] LONG-TERM OPTIONS (HMO D-SNP) [facility] Care Teams Windows Vmware Engineer Relationship Specialty Start Date End Date Uma Chung MD [address] [place] [address] PCP - General Family Medicine 02/21/18 Altranais 09/15/24
--- OUTSIDE RECORDS SUMMARY | 2025-04-10 08:31 | XMS_ITS | Encounter Summary ---
Author Organization [employer] Address [address] [facility] 7t [place] [address] Care Team Providers Care Chemical Processor Name Role Phone Uma Chung MD Primary Care Provide r Reason for Visit * Reason Comments Med Refill Encounter Details Date Type Department Care Team ([facility] st Contact Info) Description 03/02/2025 Refill [facility] & PEDS [address] [place] [address] Uma Chung MD [address] [place] [address] Heartburn Social History Tobacco Use Types Packs/Day [...] EST Telemedicine [facility] MED[facility] [address] [place] [address] Emi Harrell, RN documented as of this encounter Visit Diagnoses Diagnosis Heartburn documented in this encounter Additional Health Concerns Assessment Noted Time PHQ-9 Depression Total Score: 4 05/06/20 24 9:16 AM EST documented as of this encounter Care Teams Chemical Processor Relationship Specialty Start Date End Date Uma Chung MD [address] [place] [address] PCP - General Family Medicine 02/21/18 Altranais 09/15/24 documented as of this encounter
--- OUTSIDE RECORDS SUMMARY | 2025-04-10 08:32 | XMS_ITS | Encounter Summary ---
Author Organization [employer] Address [address] [facility] [address] [place] [address] Care Team Providers Care Resort Housekeeper Name Role Phone Uma Chung MD Primary Care Provide r Reason for Visit * Reason Comments Med Refill Encounter Details Date Type Department Care Team ([facility] st Contact Info) Description 05/07/2023 Refill [facility] [address] [place] [address] Uma Chung MD [address] [place] [address] Osteoarthritis involving multiple joints on both sides [...] AM EST Telemedicine [facility] [address] [place] [address] Emi Harrell RN documented as of this encounter Visit Diagnoses Diagnosis Osteoarthritis involving multiple joints on both sides of body documented in this encounter Additional Health Concerns Assessment Noted Time PHQ-9 Depression Total Score: 0 12/13/19 23 10:21 AM EDT documented as of this encounter Care Teams Resort Housekeeper Relationship Specialty Start Date End Date Uma Chung MD [address] [place] [address] PCP - General Family Medicine 02/21/18 Altranzenobias 09/15/24 documented as of this encounter
--- OUTSIDE RECORDS SUMMARY | 2025-04-10 08:32 | XMS_ITS | Clinical Summary ---
Author Organization [facility] Address [address] [place] [address] Care Team Providers Care Circulation Manager Name Role Phone Uma Chung MD [...] Years Used Date Smoking Tobacco: Never Assessed [facility] Utilities Answer Date Recorded In the past 12 months has e [employer], [employer], oil, or water [employer] threatened to shut off services in your [...] any time in the past 12 [facility], were you homeless or living in a group home (including now)? No 08/06/2024 Sex and Gender [...] Vaccine (1 of 2) 1998 RSV Vaccine 50 years and older and Patients (1 - [...] this topic Medical Devices Implanted Type Area Any Commodity Buyer Device Identifier Shelf Expiration Date Model / Serial / Lot [id number] Atriclip Flex Device, 35mm Clip - [id number] Implanted:Qty: 1 on 08/13/2024 by Celena Chang MD at [facility] Clip N/A: Heart [employer] 06/03/2027 [id number] / [id number] Procedures Procedure Name Priority Date/Time Associated Diagnosis [...] 65 - 99 mg/dL 09/02/2024 7:06 AM [facility] Comment:Fasting: <100 mg/dL, Non-Fasting: <200 mg/dL (ADA 2005) Blood Urea Nitrogen (BUN) 50(H) 8 - 21 mg/dL 09/02/2024 7:06 AM [facility] Creatinine 3.0(H) 0.5 - 1.3 mg/dL 09/02/2024 7:06 AM [facility] eGFR 21(L) >59 09/02/2024 7:06 AM [facility] Comment:CKD-EPI (2020) in mL /min/1.73 sq meters. Sodium 138 136 - 145 mmol/L 09/02/2024 7:06 AM [facility] Potassium 4.9 3.4 - 5.3 mmol/L 09/02/2024 7:06 AM [facility] Chloride 108(H) 98 - 107 mmol/L 09/02/2024 7:06 AM [facility] CO2 21(L) 22 - 33 mmol/L 09/02/2024 7:06 AM [facility] Anion Gap 9 7 - 17 09/02/2024 7:06 AM [facility] Calcium 8.6(L) 8.7 - 10.5 mg/dL 09/02/2024 7:06 AM [facility] BUN/Creatinine Ratio 17 10.0 - 25.0 Ratio 09/02/2024 7:06 AM [facility] Blood Blood specimen / Unknown 09/02/2024 5:13 AM EDT 09/02/2024 6:23 AM EDT [facility] LAB BLOOD ORDERABLES Final Result [address] [address], [address] [address] * (ABNORMAL) Hemoglobin A1c with Estimated Average Glucose (08/06/2024 6:41 AM EST) Hemoglobin A1C 6.7(H) <5.7 % 08/06/2024 12:44 PM EST [facility] Comment: A1c% Interpretation 5.7 - 6.0 Increase risk of diabetes 6.1 - 6.4 Higher risk of diabetes > or = 6.5 Consistent with diabetes Diabetes Care, 33(Supp 1):S1-S61, 2010 Estimated Average Glucose 146 mg/dL 08/06/2024 12:44 PM [facility] Blood Blood specimen / Unknown 08/06/2024 6:41 AM EST 08/06/2024 7:37 AM EST Jessica Valentin IT TEACHER LAB BLOOD ORDERABLES Final Res ult Performing Organization Address City/Special Care [facility]/ZIP Co de Phone Number [address] [address], [address] [address] * LIPID PANEL (08/06/2024 6:41 AM EST) Cholesterol, Total 106 <200 mg/dL 2024 8:26 AM [facility] Triglycerides 61 <150 mg/dL 08/06/2024 8:26 AM [facility] Cholesterol, HDL 53 >39 mg/dL 08/07/19 8:26 AM [facility] Estimated LDL 41 <130 mg/dL 08/06/2024 8:26 AM [facility] Comment: NCEP Guidelines: < 100 mg/dL Optimal 100 - 129 mg/dL Near Optimal/Above Optimal 130 - 159 mg/dL Borderline High 160 - 189 mg/dL High >/= 190 mg/dL Very High Cholesterol/HDL Ratio 2.0 0.0 - 5.0 Ratio 08/06/2024 8:26 AM [facility] Comment: Relative Risk Ratio - Male Ratio - Female 0.5 3.4 3.3 1.0 5.0 4.4 2.0 9.6 7.1 3.0 23.4 11.0 08/06/2024 6:41 AM EST 08/06/2024 7:37 AM EST Jessicamali Valentin IT TEACHER LAB BLOOD ORDERABLES Final Res ult [address] [place] [address], [address] [address] from Last 3 Months or Most Recently Relevant to Health Maintenance Insurance [facility] MEDICARE OUT OF NETWORK Member Subscriber Plan / Payer (Ef fective 2024-Present) Name:DelioPhil A Relation to Subscriber:Self Name:DelioStephanRohit Payer ID:Not on file Group ID:Not on file Type:Not on file Address: [address] MEDICARE PART A & B [facility] MEDICARE OUT OF NETWORK [facility] Advance Directives Documents on File Type Date Recorded 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 [facility] Care Ukrainian Folk Arts Instructor Care Teams Circulation Manager Relationship Specialty Start Date End Date Uma Chung MD [address] [place] [id number] PCP - General Internal Medicine 08/06/24
[2025-04-10 11:40] LABS: Anion Gap 12 (12-20); Blood Urea Nitrogen 29 mg/dL (9-16); Calcium 7.9 mg/dL (8.4-10.2); Carbon Dioxide 22 mmol/L (22-29); Chloride 114 mmol/L (96-108); Estimated Glomerular Filt Rate 25; Potassium 4.5 mmol/L (3.3-5.1); Sodium 143 mmol/L (135-145)
== END 2025-04-10 08:29 | disposition home or self-care (01) ==
LOC: HO.LAB 08:28
PROVIDERS: PCP Internal Medicine; Visit Provider Internal Medicine Hypertension Specialist
DX: N18.9 Chronic kidney disease, unspecified (principal)
CPT/HCPCS: 36415; 80048

== ENCOUNTER 2025-04-20 10:36 | Outpatient (AMB) | payer OTHER, SELFPAY ==
[2025-04-20 10:42] VITALS: BP 146/64; PULSE 83; O2SAT 99; BMI 25.8
--- NOTE | 2025-04-20 10:42 | HO.NEPHOV ---
Vital Signs 04/20/25 10:42 04/20/25 11:09 Height 6 ft Weight 190 lb BMI 25.8 BP 146/64 H 120/60 Blood Pressure Location Rt brachial Rt brachial Position Sitting Sitting Pulse 83 Pulse Source Pulse Oximeter Pulse Oximetry (%) 99 Oxygen Delivery Method Room Air Intake Visit Reasons: 2mon f/u w/labs Prescription Benefit Specialist Required: No Prescription Benefit Specialist Services: Prescription Benefit Specialist Offered & Declined (Son will translate) Accompanied by: Son Allergies No Known Allergies Allergy (Verified 04/20/25 10:44) Medication List - Last Reconciled 04/20/25 by Evan Donald MD acetaminophen 975 mg PO TID PRN aspirin 1 tab PO DAILY atorvastatin 80 mg PO BEDTIME clopidogrel 75 mg PO DAILY cromolyn 4% 1 drp ophthalmic (eye) DAILY PRN dapagliflozin propanediol (Farxiga) 10 mg PO DAILY furosemide 20 mg PO Q OTHER DAY lidocaine 5% 1 patch topical DAILY linagliptin (Tradjenta) 5 mg PO DAILY melatonin 10 mg PO BEDTIME PRN metoprolol tartrate 12.5 mg PO BID oxycodone-acetaminophen 5-325 mg 1 tab PO Q6H PRN pantoprazole 40 mg PO DAILY polyethylene glycol 3350 17 grams PO DAILY sacubitril-valsartan 24-26 mg (Entresto) 1 tab PO BID sennosides (senna) 8.6 mg PO BEDTIME tamsulosin 0.8 mg PO DAILY thiamine HCl (vitamin B1) 100 mg PO DAILY vericiguat (Verquvo) 5 mg PO DAILY HPI Comments Details: 74-year-old male with a h/o CAD, HTN and DM refered for chronic kidney disease management and declining renal function . He has a horseshoe kidney and underwent a CT scan in October 2023 revealing multiple renal cysts. Current renal function is significantly reduced, with a GFR of 21%, and anemia is present with hemoglobin levels at 7.5 g/dL. The patient had a cardiac bypass surgery recently, and renal concerns were highlighted during cardiac care follow-up. He reports minor intermittent urinary issues and historical swelling in the lower extremities. No significant current respiratory issues, although shortness of breath was noted previously. The patient currently avoids NSAIDs due to past recommendations. 03/02/25 - The patient is a 74-year-old male presenting with chronic kidney disease management. - Coronary artery disease with ongoing management. - Hypertension managed to maintain blood pressure between 110/120 mmHg. - Diabetes mellitus with associated chronic kidney disease. - Horseshoe kidney with multiple renal cysts. - Kidney function at 19%, affected by cardiac medications. - Blood pressure as low as 90/50 mmHg, causing dizziness. 04/20/25 The patient is a 74-year-old male presenting for a follow-up visit for ckd, . The patient has a history of low blood pressure and has gained two pounds. He also has anemia, which is being monitored. The patient denies leg swelling and diarrhea. He reports taking Senna for constipationalong with polyethylene glycol. [facility] Medical History Benign prostatic hyperplasia with lower urinary tract symptoms GERD (gastroesophageal reflux disease) Social History Household Members: None Housing: Apartment Do you presently have visiting nurse or other home services: No Alcohol intake: never Patient Tobacco Use Status: Never used Tobacco Second Hand Smoke Exposure: No Physical Exam Vital Signs: Last Vital Signs Pulse 83 04/20/25 10:42 BP 120/60 04/20/25 11:09 Pulse Ox 99 04/20/25 10:42 Oxygen Delivery Method Room Air 04/20/25 10:42 BMI result Body Mass Index 25.8 Comfortable Neck supple no JVD. Lungs entry equal no rales. Heart S1-S2 heard no gallop or rub. Abdomen soft nontender. Neuro alert awake oriented. No asterixis. Extremities no edema. Results Reviewed Nephrology Results: Hgb, (14.0-18.0) 9.3 g/dl L 12/29/24 WBC, (4.8-10.8) 7.7 X10*3/uL 12/29/24 Plt Count, (160-400) 284 X10*3/uL Δ 12/29/24 Sodium, (135-145) 143 mmol/L 04/10/25 Potassium, (3.3-5.1) 4.5 mmol/L 04/10/25 Chloride, (96-108) 114 mmol/L H 04/10/25 Carbon Dioxide, (22-29) 22 mmol/L 04/10/25 BUN, (9-16) 29 mg/dL H 04/10/25 Creatinine, (0.5-1.4) 2.52 mg/dL H 04/10/25 Calcium, (8.4-10.2) 7.9 mg/dL L 04/10/25 Phosphorus, (2.7-4.5) 3.6 mg/dL 11/10/24 PTH Intact, (8.7-77.1) 234.4 pg/mL H 11/10/24 Renal US 01/05/21 Assessment & Plan Assessment & Plan (1) CKD (chronic kidney disease): Comment: In a setting of long standing DM/HTN h/o Horseshoe kidney with multiple cysts Code(s): N18.9 - Chronic kidney disease, unspecified Category: Medical Plan: Renal function has improved REID due to hypoperfusion Volume status acceptable Keep current dose of LAsix (2) Anemia: Comment: Post OP anemia vs EPO deficiency Code(s): D64.9 - Anemia, unspecified Category: Medical Plan: Watch HCT and Iron store Hgb HAS improved No need for Epogen (3) Diabetes mellitus: Code(s): E11.9 - Type 2 diabetes mellitus without complications Category: Medical Plan: Maintain A1C < 7% Plan Management per PCP Concur with SGLT-2 inhibitors Loose BM DC SEnna and Polyethylene glycol ! Orders: Orders Complete Blood Count Auto Diff 2 Months N18.9 - Chronic kidney disease, unspecified Parathyroid Hormone Intact 2 Months N18.9 - Chronic kidney disease, unspecified Ferritin 2 Months N18.9 - Chronic kidney disease, unspecified Comprehensive Met. Panel 2 Months N18.9 - Chronic kidney disease, unspecified IRON PROFILE 2 Months N18.9 - Chronic kidney disease, unspecified Coding Level of Care Code Est Pt Level 4 (07151) Diagnoses CKD (chronic kidney disease) N18.9 Anemia D64.9 Diabetes mellitus E11.9
[2025-04-20 11:09] VITALS: BP 120/60
== END 2025-04-20 11:17 | disposition home or self-care (01) ==
LOC: HO.HKA 10:36
PROVIDERS: PCP Internal Medicine; Visit Provider Internal Medicine Hypertension Specialist
DX: N18.9 Chronic kidney disease, unspecified (principal); D64.9 Anemia, unspecified; E11.9 Type 2 diabetes mellitus without complications
CPT/HCPCS: 99214

== ENCOUNTER → 2025-04-20 10:36 | Outpatient (BNVA) | payer OTHER, SELFPAY | PROVIDERS: PCP Internal Medicine; Visit Provider Internal Medicine Hypertension Specialist | DX: E11.22 Type 2 diabetes mellitus with diabetic chronic kidney disease (principal); I10 Essential (primary) hypertension; N18.9 Chronic kidney disease, unspecified; D64.9 Anemia, unspecified | CPT/HCPCS: 99212 ==